=== PATIENT | female | born 1945 | race Caucasian/White ===

== ENCOUNTER 2021-12-16 15:51 | Outpatient (RCR) | payer SELFPAY ==
--- NOTE | 2022-03-04 13:14 | ONC.NURNOTE ---
Received an order from nephrology for blood transfusion. After discussion with nursing they note that clay caster wanted patient to have an order for blood if hemoglobin less than 8. They were told that this would be next checked on March 12 and her procrit injection. Further informed that if patient comes in symptomatic we will get an order from cotton converter for transfusion. She is comfortable with this plan, and asked that nursing disregard order sent.
== END 2022-12-07 23:00 | disposition home or self-care (01) ==
LOC: MOW 15:51
PROVIDERS: PCP Family Medicine; Visit Provider Family Medicine
DX: H65.90 Unspecified nonsuppurative otitis media, unspecified ear (principal)
CPT/HCPCS: S5170

== ENCOUNTER 2021-12-24 14:43 | Outpatient (CLI) | payer OTHER, SELFPAY | END 2021-12-24 14:44 | disposition home or self-care (01) | LOC: AMB 01-01 11:44 | PROVIDERS: PCP Family Medicine; Visit Provider Family Medicine | DX: S09.90XA Unspecified injury of head, initial encounter (principal); W01.0XXA Fall on same level from slipping, tripping and stumbling without subsequent striking against object, initial encounter; Y92.008 Other place in unspecified non-institutional (private) residence as the place of occurrence of the external cause | CPT/HCPCS: A0425; A0427 ==

== ENCOUNTER 2021-12-24 15:11 | Emergency (ER) | payer OTHER, SELFPAY ==
[2021-12-24] VITALS (9 sets, daily range): BP systolic 105–119; BP diastolic 48–61; PULSE 55–62; RESP 16–18; TEMP 35.8–36.8; O2SAT 98–99; BMI 25.1
--- NOTE | 2021-12-24 | CRLHL7_ITS ---
For Patients: As a result of the Century Cures Act, medical imaging exams and procedure reports are released immediately into your electronic medical record. You may view this report before your referring provider. If you have questions, please contact your health care provider. INDICATION: Fall. TECHNIQUE: Head CT without contrast. Coronal and sagittal reformats were generated. COMPARISON: None. FINDINGS: CSF spaces: Within normal limits for age. Brain parenchyma and extra-axial spaces: Mild generalized cerebral and cerebellar atrophy. Nonspecific low attenuation white matter changes consistent with chronic microvascular disease. No sign of mass, hemorrhage, or midline shift. Skull base and calvarium: Opacification of the left mastoid air cells. The other visualized paranasal sinuses and mastoid air cells demonstrate no acute or significant findings. The visualized orbits are grossly unremarkable. No skull fractures. Soft tissues: Right frontal soft tissue swelling and small subgaleal hematoma. No subcutaneous emphysema or radiopaque foreign body. IMPRESSION: No acute intracranial abnormality. Please note that all CT scans at this facility use dose modulation, iterative reconstruction, and/or weight-based dosing when appropriate to reduce radiation dose to as low as reasonably achievable. Dictated by Juan Hernandez MD @ 12/24/2021 3:51:31 PM (Electronically Signed)
--- NOTE | 2021-12-24 | CRLHL7_ITS ---
For Patients: As a result of the Century Cures Act, medical imaging exams and procedure reports are released immediately into your electronic medical record. You may view this report before your referring provider. If you have questions, please contact your health care provider. INDICATION: Fall. TECHNIQUE: CT cervical spine without contrast. Coronal and sagittal reformats were generated. COMPARISON: None. FINDINGS: Vertebrae: Alignment is normal. The C7 vertebral body is incompletely included in the field of view. No fractures or suspicious bony lesions. Discs and facet joints: Multilevel degenerative changes in the form of disc space narrowing, subchondral sclerosis, and marginal osteophyte formation. The changes are most prominent at C6-C7. Osteoarthritic changes involve the apophyseal joints of the cervical spine. Extraspinal findings: Prevertebral soft and visualized airway are unremarkable. Opacification of the left mastoid air cells. Opacification of the right lung apex could be pleural thickening or effusion. IMPRESSION: Multilevel degenerative changes. No acute abnormality in the included cervical spine. Please note that all CT scans at this facility use dose modulation, iterative reconstruction, and/or weight-based dosing when appropriate to reduce radiation dose to as low as reasonably achievable. Dictated by Juan Hernandez MD @ 12/24/2021 3:49:27 PM (Electronically Signed)
--- NOTE | 2021-12-24 15:18 | ED_ITS ---
HPI - General Adult General Time Seen by Provider: 15:18 Date Seen: 12/24/21 Chief complaint: Fall/Minor Trauma Stated complaint: Fall Time Seen by Provider: 12/24/21 15:22 Source: patient Mode of arrival: EMS Limitations: no limitations History of Present Illness HPI narrative: Patient is a 76 year white female who lives independently in [place] was brought in by EMS, after she fell against a door frame and then fell to the ground. She fell she lost her balance, denied chest pain denied loss of consciousness, she has got a history of being on blood thinner for atrial fibrillation and heart valve replacement. She is brought in with bruising on her right forehead and a small hematoma in 2 spots on her right forehead. She denies neck pain, denies back pain denies chest pain denies neurologic complaints. Presents to the ED via ambulance. No recent illness. Trauma team activation was called, the patient has a Chicken coma Scale of 15. Denies back pain. Related Data Home Medications Medication Instructions Recorded Confirmed apixaban 5 mg tablet 5 mg PO BID 11/18/21 12/24/21 ascorbic acid (vitamin C) 1,000 mg 1,000 mg PO DAILY 11/18/21 12/24/21 tablet bupropion HCl 150 mg 24 hr tablet, 150 mg PO DAILY 11/18/21 12/24/21 extended release citalopram 20 mg tablet 20 mg PO DAILY 11/18/21 12/24/21 diltiazem HCl 120 mg See Rx Instructions PO DAILY 11/18/21 12/24/21 capsule,extended release 24 hr ferrous sulfate 325 mg (65 mg 325 mg PO DAILY 11/18/21 12/24/21 iron) tablet hydroxychloroquine 200 mg tablet See Rx Instructions PO DAILY 11/18/21 12/24/21 leflunomide 10 mg tablet 10 mg PO .COMPLEX 11/18/21 12/24/21 levothyroxine 125 mcg tablet 125 mcg PO DAILY 11/18/21 12/24/21 loperamide 2 mg capsule 4 mg PO DAILY 11/18/21 12/24/21 omeprazole 20 mg capsule,delayed See Rx Instructions PO DAILY 11/18/21 12/24/21 release potassium chloride 20 mEq 20 meq PO BID 11/18/21 12/24/21 tablet,extended release(part/cryst) prednisone 5 mg tablet 5 mg PO DAILY 11/18/21 12/24/21 pregabalin 25 mg capsule 100 mg PO .Bedtime 11/18/21 12/24/21 oxybutynin chloride 5 mg mg PO 12/24/21 tablet,extended release 24 hr Previous Rx's Medication Instructions Recorded torsemide 20 mg tablet 60 mg PO DAILY #270 tabs 12/10/21 metoprolol succinate 50 mg 50 mg PO QDAY #90 tabs 12/24/21 tablet,extended release 24 hr Allergies Allergy/AdvReac Type Severity Reaction Status Date / Time gabapentin Allergy Mild possible Verified 12/23/21 15:50 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 levothyroxine Allergy Unknown boils, Verified 12/23/21 15:50 hives hydrocodone AdvReac Mild nausea per Verified 12/23/21 15:50 previous records received Review of Systems Status of ROS: Reports: 6 or more systems reviewed and unremarkable except as noted in History and below [facility] Medical History Collagenous colitis Dyspnea Sensation of plugged ear on both sides Tobacco dependence in remission Trochanteric bursitis Upper gastrointestinal hemorrhage Social History Narrative: Exercises regularly: Swimming, golf, gardening, yoga , 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 8 pack years, quit in 20's Social drinker. 1-2/day SOCIAL HISTORY: She is . [place] but in the last year she moved to a town home nearby that is wheelchair accessible for her . He has muscular dystrophy. [place] the country. She describes a very stressful spring where she had trouble with many aspects of the early in the COVID-19 pandemic when nobody wanted to come in contact with anybod y else. In a way that kept her busy. She has 3 adult children. One stepdaughter. She is retired. She is exercising by walking the dog every other day. She used to do circuit training and swimming. She is not sexually active. Smoking Status: Never smoker Do you use any of these nicotine containing products: None How often do you have a drink containing alcohol: never How often do you have six or more drinks on one occasion: Never AUDIT-C Alcohol total score: 0 Non-prescribed substance use: denies use service: No Exam Narrative: Exam Narrative: Primary survey: Airway breathing circulation disability all intact Secondary survey: Vital signs being obtained Alert orient x3 HEENT shows bruising and hematoma on the right side of the forehead in 2 spots, pupils react to light extraocular moves intact Neck is supple nontender, no midline tenderness Chest back abdomen unremarkable Pelvis stable Upper lower extremities move fully without difficulty or pain to palpation, neurologic nonfocal Skin warm and dry Const: Vital Signs, click to edit/add: Vital Signs - 24 hr 12/24/21 15:17 12/24/21 16:47 Temperature 96.4 F L 96.7 F L Pulse Rate [Pulse Oximeter] 59 L 58 L Respiratory Rate 18 18 Blood Pressure [Ri ght Upper Arm] 119/58 L 119/58 L Pulse Oximetry 99 99 Oxygen Delivery Me thod Nasal Cannula Nasal Cannula Oxygen Flow Rate 2 Course Vital Signs Vital signs: Initial Vital Signs Temperature 96.4 F L 12/24/21 15:17 Temperature Source Temporal Artery Scan 12/24/21 15:17 Pulse Rate 59 L 12/24/21 15:17 Pulse Rhythm 12/24/21 15:17 Respiratory Rate 18 12/24/21 15:17 Blood Pressure 119/58 L 12/24/21 15:17 Blood Pressure Mean 78 12/24/21 15:17 Pulse Oximetry 99 12/24/21 15:17 Oxygen Delivery Method 12/24/21 15:17 Vital Signs Temperature 96.4 F L 12/24/21 15:17 Pulse Rate 59 L 12/24/21 15:17 Respiratory Rate 18 12/24/21 15:17 Blood Pressure 119/58 L 12/24/21 15:17 Pulse Oximetry 99 12/24/21 15:17 Oxygen Delivery Method 12/24/21 15:17 Temperature 96.7 F L 12/24/21 16:47 Pulse Rate 58 L 12/24/21 16:47 Respiratory Rate 18 12/24/21 16:47 Blood Pressure 119/58 L 12/24/21 16:47 Pulse Oximetry 99 12/24/21 16:47 Oxygen Delivery Method 12/24/21 16:47 Oxygen Flow Rate 2 12/24/21 16:47 Medical Decision Making MDM Narrative Medical decision making narrative: Because of the patient's age in her blood thinner on board, she will get a head CT scan and neck CT because of her fall. She does not have any other signs of injury other than her head, and will check the above-mentioned studies will do an EKG as well as laboratory studies as well. Disposition pending findings and labs and clinical status Addendum: The patient's hemoglobin is 7.8, she chronically runs a low hemoglobin. But she has had symptoms of feeling weak lately, after mutual decision making and discussion we elected to give her a unit of blood for transfusion. Her CT of head neck are unremarkable. She is on anticoagulation but she has not had any symptoms of bleeding. Also her heart rate is in the 50s and I think she could hold on to her diltiazem for now as that could slow her heart rate. This needs to be recheck with clinic in the next few days. Lab Data Labs: Lab Results 12/24/21 12/24/21 12/24/21 Range/Units 15:25 15:25 15:25 WBC 8.72 (4.50-11.00) K/uL RBC 2.58 L (4.00-5.20) m/uL Hgb 7.8 L* (12.0-16.0) gm/dL Hct 24.4 L (33.0-51.0) % MCV 95 (80-100) fL MCH 30 (26-34) pg MCHC 32 (32-36) gm/dL RDW Coeff of Estrella 19.9 H (11.5-15.5) % Plt Count 219 (140-440) K/uL Neut % (Auto) 75.7 H (42.0-72.0) % Lymph % (Auto) 13.3 L (20-44) % [place] % (Auto) 7.6 (0.0-11.0) % Eos % (Auto) 2.6 (0.0-7.0) % Baso % (Auto) 0.6 (0.0-3.0) % Neut # (Auto) 6.60 (1.7-7.0) K/uL Lymph # (Auto) 1.20 (0.90-2.90) K/uL [place] # (Auto) 0.70 (0.00-0.90) K/UL Eos # (Auto) 0.23 (0.00-0.50) K/uL Baso # (Auto) 0.05 (0.00-0.30) K/uL Abs Immat Gran (auto) 0.02 (0.00-0.30) K/uL INR 1.52 H (0.91-1.10) APTT 33 (23-33) Seconds Sodium 137 (135-149) mmol/L Potassium 4.6 (3.6-5.1) mmol/L Chloride 95 L (96-114) mmol/L Carbon Dioxide 34 H (20-32) mmol/L BUN 44 H (7-30) mg/dL Creatinine 1.7 H (0.5-1.5) mg/dL Estimated Creat Clear 24.31 Estimated GFR 31 ml/min Glucose 111 (60-115) mg/dL Calcium 8.5 (8.4-10.6) mg/dL Total Bilirubin 0.9 (0.1-1.5) mg/dL Direct Bilirubin 0.2 (0.0-0.5) mg/dL AST 36 H (12-35) U/L ALT 20 (4-35) U/L Alkaline Phosphatase 174 H (40-150) U/L Total Protein 7.5 (6.0-8.3) g/dL Albumin 4.1 (3.3-5.0) g/dL Blood Type Antibody Screen Crossmatch ([facility]) 12/24/21 Range/Units 15:25 WBC (4.50-11.00) K/uL RBC (4.00-5.20) m/uL Hgb (12.0-16.0) gm/dL Hct (33.0-51.0) % MCV (80-100) fL MCH (26-34) pg MCHC (32-36) gm/dL RDW Coeff of Estrella (11.5-15.5) % Plt Count (140-440) K/uL Neut % (Auto) (42.0-72.0) % Lymph % (Auto) (20-44) % [place] % (Auto) (0.0-11.0) % Eos % (Auto) (0.0-7.0) % Baso % (Auto) (0.0-3.0) % Neut # (Auto) (1.7-7.0) K/uL Lymph # (Auto) (0.90-2.90) K/uL [place] # (Auto) (0.00-0.90) K/UL Eos # (Auto) (0.00-0.50) K/uL Baso # (Auto) (0.00-0.30) K/uL Abs Immat Gran (auto) (0.00-0.30) K/uL INR (0.91-1.10) APTT (23-33) Seconds Sodium (135-149) mmol/L Potassium (3.6-5.1) mmol/L Chloride (96-114) mmol/L Carbon Dioxide (20-32) mmol/L BUN (7-30) mg/dL Creatinine (0.5-1.5) mg/dL Estimated Creat Clear Estimated GFR ml/min Glucose (60-115) mg/dL Calcium (8.4-10.6) mg/dL Total Bilirubin (0.1-1.5) mg/dL Direct Bilirubin (0.0-0.5) mg/dL AST (12-35) U/L ALT (4-35) U/L Alkaline Phosphatase (40-150) U/L Total Protein (6.0-8.3) g/dL Albumin (3.3-5.0) g/dL Blood Type O Positive Antibody Screen NEGATIVE Crossmatch ([facility]) See Detail Discharge Plan Discharge Clinical Impression: CHI (closed head injury), Fall, Anemia Patient Disposition: Home w/ Parent or Adult Condition: Improved Additional Instructions: Rest, light activity, light diet, would have her stop diltiazem at this point given her relative bradycardia. Continue her other medications. Recheck with primary care in 48 hours certainly sooner change concerns worsening return to ED. Patient will get a unit of blood for transfusion as she is just at the low end of her baseline and has had energy issues. Watch for any bleeding or other concerns. Follow up with regular doctor within the next 2 days Activity Level: Light activity Activity Detail: stop diltiazem Discharge Diet: Regular Prescriptions: No Action apixaban 5 mg tablet 5 mg PO BID hydroxychloroquine 200 mg tablet See Rx Instructions PO DAILY Rx Instructions: orally daily; ferrous sulfate 325 mg (65 mg iron) tablet 325 mg PO DAILY leflunomide 10 mg tablet 10 mg PO .COMPLEX Rx Instructions: 10 mg orally; TAKES WEDNESDAY THROUGH WEDNESDAY prednisone 5 mg tablet 5 mg PO DAILY loperamide 2 mg capsule 4 mg PO DAILY ascorbic acid (vitamin C) 1,000 mg tablet 1,000 mg PO DAILY diltiazem HCl 120 mg capsule,extended release 24hr See Rx Instructions PO DAILY Rx Instructions: orally daily; potassium chloride 20 mEq tablet,ER particles/crystals 20 meq PO BID pregabalin 25 mg capsule 100 mg PO .Bedtime bupropion HCl 150 mg tablet extended release 24 hr 150 mg PO DAILY omeprazole 20 mg capsule,delayed release(DR/EC) See Rx Instructions PO DAILY Rx Instructions: orally daily; levothyroxine 125 mcg tablet 125 mcg PO DAILY citalopram 20 mg tablet 20 mg PO DAILY oxybutynin chloride 5 mg tablet extended release 24hr PO torsemide 20 mg tablet 60 mg PO DAILY Qty: 270 1RF metoprolol succinate 50 mg tablet extended release 24 hr 50 mg PO QDAY Qty: 90 0RF Follow Up/Referrals: Alcdies Gonzalez MD [Primary Care Provider] - Antonio Anthony MD [Emergency Provider] - Stand Alone Forms: [facility] Info Instructions
[2021-12-24 15:38] LABS: Basophils Absolute Auto 0.05 K/uL (0.00-0.30); Basophils Percent Auto 0.6 % (0.0-3.0); Eosinophils Absolute Auto 0.23 K/uL (0.00-0.50); Eosinophils Percent Auto 2.6 % (0.0-7.0); Hematocrit 24.4 % (33.0-51.0); Immature Granulocytes Abs Auto 0.02 K/uL (0.00-0.30); Lymphocytes Percent Auto 13.3 % (20-44); Mean Corpuscular HGB Conc 32 gm/dL (32-36); Mean Corpuscular Hemoglobin 30 pg (26-34); Mean Corpuscular Volume 95 fL (80-100); Monocytes Percent Auto 7.6 % (0.0-11.0); Neutrophils Percent Auto 75.7 % (42.0-72.0); Platelet Count* 219 K/uL (140-440); RDW Coefficient of Variation % 19.9 % (11.5-15.5); Red Blood Count 2.58 m/uL (4.00-5.20); White Blood Count* 8.72 K/uL (4.50-11.00)
[2021-12-24 15:46] LABS: Albumin* 4.1 g/dL (3.3-5.0); Chloride* 95 mmol/L (96-114); Sodium* 137 mmol/L (135-149)
[2021-12-24 15:47] LABS: Potassium* 4.6 mmol/L (3.6-5.1)
[2021-12-24 15:48] LABS: Creatinine* 1.7 mg/dL (0.5-1.5); Est. Creatinine Clearance* 24.31; Estimated Glomerular Filt Rate 31 ml/min
[2021-12-24 15:49] LABS: Alanine Aminotransferase* 20 U/L (4-35); Alkaline Phosphatase* 174 U/L (40-150); Aspartate Amino Transferase* 36 U/L (12-35); Bilirubin Direct* 0.2 mg/dL (0.0-0.5); Bilirubin Total* 0.9 mg/dL (0.1-1.5); Blood Urea Nitrogen* 44 mg/dL (7-30); Carbon Dioxide* 34 mmol/L (20-32); Glucose* 111 mg/dL (60-115); Total Protein* 7.5 g/dL (6.0-8.3)
[2021-12-24 15:50] LABS: Calcium* 8.5 mg/dL (8.4-10.6)
[2021-12-24 15:56] LABS: Hemoglobin* 7.8 gm/dL (12.0-16.0); Slide Review Reflex No
--- NOTE | 2021-12-24 15:59 | ED.NURSE ---
Dr Anthony updated on critical hgb level.
[2021-12-24 16:01] LABS: INR 1.52 (0.91-1.10); Partial Thromboplastin Time* 33 Seconds (23-33); Prothrombin Time 18.8 Seconds
--- NOTE | 2021-12-24 19:06 | ED.NURSE ---
pt u to br with steady gait. Returned to bed and all monitors resumed. Has pacer pads on. belongings check done which include keys to truck that family will garbage pick up man shortly.
== END 2021-12-24 21:26 | disposition home or self-care (01) ==
PROVIDERS: Emergency Provider Family Medicine; PCP Family Medicine
DX: S00.83XA Contusion of other part of head, initial encounter (principal); D64.9 Anemia, unspecified
CPT/HCPCS: 36415; 36430; 70450; 72125; 80048; 80076; 85025; 85610; 85730; 86850; 86900; 86901; 86922; 93005; 99284; 99285; 99291; G0390; P9016

== ENCOUNTER 2021-12-31 08:32 | Outpatient (CLI) | payer OTHER, SELFPAY ==
[2021-12-31 11:40] LABS: Albumin* 4.3 g/dL (3.3-5.0); Chloride* 92 mmol/L (96-114)
[2021-12-31 11:41] LABS: Potassium* 4.1 mmol/L (3.6-5.1); Sodium* 136 mmol/L (135-149)
[2021-12-31 11:43] LABS: Carbon Dioxide* 33 mmol/L (20-32); Creatinine* 1.9 mg/dL (0.5-1.5); Estimated Glomerular Filt Rate 27 ml/min; Iron* 59 ug/dL (37-170)
[2021-12-31 11:44] LABS: Blood Urea Nitrogen* 29 mg/dL (7-30); Calcium* 9.2 mg/dL (8.4-10.6); Glucose* 107 mg/dL (60-115); Phosphorus* 3.9 mg/dL (2.5-4.5)
[2021-12-31 11:52] LABS: Percent Iron Saturation 24 % (20-50); Total Iron Binding Capacity 248 ug/dL (265-497)
[2021-12-31 11:52] LABS: Creatinine Urine 31.9 mg/dL
[2021-12-31 11:56] LABS: Microalbumin Creatinine Ratio 120 mg/g (0-30); Microalbumin Urine 4 mg/dL
== END 2021-12-31 08:33 | disposition home or self-care (01) ==
PROVIDERS: PCP Family Medicine; Visit Provider Internal Medicine Nephrology
DX: N18.30 Chronic kidney disease, stage 3 unspecified (principal); D64.9 Anemia, unspecified
CPT/HCPCS: 80069; 82043; 82570; 82728; 83540; 83550; 87086; 87186

== ENCOUNTER 2022-02-27 15:21 | Emergency (ER) | payer OTHER, SELFPAY ==
[2022-02-27] VITALS (11 sets, daily range): BP systolic 109–149; BP diastolic 45–86; PULSE 57–66; RESP 12–16; TEMP 36.2–36.8; O2SAT 97–100; BMI 26.6
[2022-02-27 16:06] LABS: Basophils Absolute Auto 0.04 K/uL (0.00-0.30); Basophils Percent Auto 0.5 % (0.0-3.0); Eosinophils Percent Auto 3.7 % (0.0-7.0); Hemoglobin* 8.1 gm/dL (12.0-16.0); Immature Granulocytes Abs Auto 0.01 K/uL (0.00-0.30); Lymphocytes Percent Auto 7.7 % (20-44); Mean Corpuscular HGB Conc 32 gm/dL (32-36); Mean Corpuscular Hemoglobin 31 pg (26-34); Mean Corpuscular Volume 97 fL (80-100); Monocytes Percent Auto 7.2 % (0.0-11.0); Neutrophils Percent Auto 80.8 % (42.0-72.0); Platelet Count* 209 K/uL (140-440); RDW Coefficient of Variation % 19.6 % (11.5-15.5); Red Blood Count 2.59 m/uL (4.00-5.20); White Blood Count* 8.07 K/uL (4.50-11.00)
[2022-02-27 16:12] LABS: Slide Review Reflex No
--- NOTE | 2022-02-27 17:02 | ED_ITS ---
HPI - Weakness General Date Seen: 02/27/22 Chief complaint: Weakness Stated complaint: Requesting a blood transfusion Time Seen by Provider: 02/27/22 15:25 Source: patient Mode of arrival: ambulatory Limitations: no limitations History of Present Illness HPI Narrative: Bess is a 76-year-old female who suffers from anemia. She was at [facility] today, but they were unable to get her a transfusion. She has had previous transfusions with the most recent 1 being here in the early part of February. She has followed up with our oncologist/cuprous chloride operator here. She has a combination of chronic renal failure causing this along with the fact that she is anticoagulated and has a small blood loss from this. She has recently started on EPO but that is not yet had a affect, she was seen today at the [facility] and they are her hemoglobin was 7.9. She was transfused here before when it was 7.7, She is on chronic oxygen, notice that she has a lot weaker than normal, tough to get around, and feels that unit of blood would really help her. Denies any chest pain, she is ?chronically short of breath, Complaint: generalized weakness Relieving factors: rest Exacerbating factors: movement Associated symptoms: denies other symptoms Related Data Home Medications Medication Instructions Recorded Confirmed apixaban 5 mg tablet 5 mg PO BID 11/18/21 01/29/22 ascorbic acid (vitamin C) 1,000 mg 1,000 mg PO DAILY 11/18/21 01/29/22 tablet bupropion HCl 150 mg 24 hr tablet, 150 mg PO DAILY 11/18/21 01/29/22 extended release citalopram 20 mg tablet 20 mg PO DAILY 11/18/21 01/29/22 ferrous sulfate 325 mg (65 mg 325 mg PO DAILY 11/18/21 01/29/22 iron) tablet hydroxychloroquine 200 mg tablet See Rx Instructions PO DAILY 11/18/21 01/29/22 leflunomide 10 mg tablet 10 mg PO .COMPLEX 11/18/21 01/29/22 levothyroxine 125 mcg tablet 125 mcg PO DAILY 11/18/21 01/29/22 loperamide 2 mg capsule 4 mg PO DAILY 11/18/21 01/29/22 omeprazole 20 mg capsule,delayed See Rx Instructions PO DAILY 11/18/21 01/29/22 release prednisone 5 mg tablet 5 mg PO DAILY 11/18/21 01/29/22 aspirin 81 mg tablet,delayed 81 mg PO QDAY 01/06/22 01/29/22 release (Adult Low Dose Aspirin) metoprolol succinate 50 mg 25 mg PO BID 01/06/22 01/29/22 tablet,extended release 24 hr potassium chloride 20 mEq 20 meq PO QDAY 01/06/22 01/29/22 tablet,extended release(part/cryst) Previous Rx's Medication Instructions Recorded torsemide 20 mg tablet 60 mg PO DAILY #270 tabs 12/10/21 Allergies Allergy/AdvReac Type Severity Reaction Status Date / Time gabapentin Allergy Mild possible Verified 02/25/22 13:11 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 levothyroxine Allergy Unknown boils, Verified 02/25/22 13:11 hives hydrocodone AdvReac Mild nausea per Verified 02/25/22 13:11 previous records received Review of Systems Status of ROS: Reports: 10 or more systems reviewed and unremarkable except as noted in History and below [facility] Medical History Collagenous colitis Dyspnea Sensation of plugged ear on both sides Tobacco dependence in remission Trochanteric bursitis Upper gastrointestinal hemorrhage Social History Narrative: Exercises regularly: Swimming, golf, gardening, yoga , 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 8 pack years, quit in 20's Social drinker. 1-2/day SOCIAL HISTORY: She is . [place] but in the last year she moved to a town home nearby that is wheelchair accessible for her . He has muscular dystrophy. She [place] the country. She describes a very stressful spring where she had trouble with many aspects of the early in the COVID-19 pandemic when nobody wanted to come in contact with anybody else. In a way that kept her busy. She has 3 adult children. One stepdaughter. She is retired. She is exercising by walking the dog every other day. She used to do circuit training and swimming. She is not sexually active. Smoking Status: Never smoker Do you use any of these nicotine containing products: None How often do you have a drink containing alcohol: never How often do you have six or more drinks on one occasion: Never AUDIT-C Alcohol total score: 0 Non-prescribed substance use: denies use service: No Exam Narrative: Exam Narrative: Very nice lady is seen in room 3 she is in no apparent distress, her vital signs are appreciated, her pupils are equal round reactive to light there is no scleral icterus redness TMs are normal oropharynx normal JVP is flat, she does have some crackles in her lungs bilaterally in the bases but no signs of respiratory distress or wheezing. Heart sounds no clicks murmurs or gallops, S1-S2 were normal I do not hear an S3. Even though I do happen to know that she has a history of tricuspid and mitral valve replacement. Her abdomen is soft there is no guarding no organomegaly, and no tenderness. She has 1+ pitting edema of her lower extremities but moves all extremities independently well, her skin is very pale Const: Vital Signs, click to edit/add: Vital Signs - 24 hr 02/27/22 15:40 02/27/22 16:00 02/27/22 17:00 Temperature 97.1 F L Pulse Rate Pulse Rate [Pulse Oximeter] 66 65 64 Respiratory Rate 16 16 Blood Pressure Blood Pressure [Ri ght Upper Arm] 117/66 110/45 L 109/67 Pulse Oximetry 99 100 97 Oxygen Delivery Me thod Nasal Cannula Room Air Room Air 02/27/22 17:30 02/27/22 18:00 02/27/22 18:00 Temperature 97.9 F Pulse Rate 66 Pulse Rate [Pulse Oximeter] 58 L 66 Respiratory Rate 16 16 16 Blood Pressure 114/49 L Blood Pressure [Ri ght Upper Arm] 118/72 137/74 Pulse Oximetry 100 100 100 Oxygen Delivery Me thod Room Air Room Air 02/27/22 18:45 02/27/22 18:56 02/27/22 19:00 Temperature 97.9 F 98.3 F 98.3 F Pulse Rate 66 57 L 57 L Pulse Rate [Pulse Oximeter] Respiratory Rate 16 12 12 Blood Pressure 114/49 L 133/77 133/77 Blood Pressure [Ri ght Upper Arm] Pulse Oximetry 100 100 100 Oxygen Delivery Me thod 02/27/22 20:00 02/27/22 20:52 Temperature 97.8 F 98.3 F Pulse Rate 59 L 59 L Pulse Rate [Pulse Oximeter] Respiratory Rate 14 14 Blood Pressure 149/86 H 137/71 Blood Pressure [Ri ght Upper Arm] Pulse Oximetry 99 98 Oxygen Delivery Me thod Documenting provider has reviewed patient's vital signs: yes Course Course Hospital Course: She received her blood, and Lasix post transfusion without incident, she feels much better now is requesting to go home which I think is reasonable. Follow-up with her primary care provider, and her cuprous chloride operator as needed, return if any further problems. Vital Signs Vital signs: Initial Vital Signs Temperature 97.1 F L 02/27/22 15:40 Temperature Source Temporal Artery Scan 02/27/22 15:40 Pulse Rate 66 02/27/22 15:40 Blood Pressure 117/66 02/27/22 15:40 Blood Pressure Mean 83 02/27/22 15:40 Blood Pressure Position Supine 02/27/22 15:40 Pulse Oximetry 99 02/27/22 15:40 Oxygen Delivery Method 02/27/22 15:40 Vital Signs Temperature 97.1 F L 02/27/22 15:40 Pulse Rate 66 02/27/22 15:40 Blood Pressure 117/66 02/27/22 15:40 Pulse Oximetry 99 02/27/22 15:40 Oxygen Delivery Method 02/27/22 15:40 Temperature 98.3 F 02/27/22 20:52 Pulse Rate 59 L 02/27/22 20:52 Respiratory Rate 14 02/27/22 20:52 Blood Pressure 137/71 02/27/22 20:52 Pulse Oximetry 98 02/27/22 20:52 Oxygen Delivery Method 02/27/22 18:00 MDM - Weakness MDM Narrative Medical decision making narrative: I discussed with her I am not against giving her a unit of blood here, it will have to be given over 4 hours I would like to give her Lasix post this. Even though she did take an extra dose of her Lasix before she came here today. She was comfortable with the risks benefits and side effects of getting blood today after our discussion. Medical Records Attestation: I reviewed the patient's medical records. Lab Data Attestation: I reviewed the patient's lab results. Labs: Lab Results 02/27/22 02/27/22 Range/Units 16:00 16:00 WBC 8.07 (4.50-11.00) K/uL RBC 2.59 L (4.00-5.20) m/uL Hgb 8.1 L (12.0-16.0) gm/dL Hct 25.0 L (33.0-51.0) % MCV 97 (80-100) fL MCH 31 (26-34) pg MCHC 32 (32-36) gm/dL RDW Coeff of Estrella 19.6 H (11.5-15.5) % Plt Count 209 (140-440) K/uL Neut % (Auto) 80.8 H (42.0-72.0) % Lymph % (Auto) 7.7 L (20-44) % [place] % (Auto) 7.2 (0.0-11.0) % Eos % (Auto) 3.7 (0.0-7.0) % Baso % (Auto) 0.5 (0.0-3.0) % Neut # (Auto) 6.50 (1.7-7.0) K/uL Lymph # (Auto) 0.60 L (0.90-2.90) K/uL [place] # (Auto) 0.60 (0.00-0.90) K/UL Eos # (Auto) 0.30 (0.00-0.50) K/uL Baso # (Auto) 0.04 (0.00-0.30) K/uL Abs Immat Gran (auto) 0.01 (0.00-0.30) K/uL Blood Type O Positive Antibody Screen NEGATIVE Crossmatch (AHG) See Detail Discharge Plan Discharge Clinical Impression: Anemia, Weakness Patient Disposition: Home w/ Parent or Adult Condition: Improved Additional Instructions: Continue medications as directed, follow-up as needed Prescriptions: No Action apixaban 5 mg tablet 5 mg PO BID hydroxychloroquine 200 mg tablet See Rx Instructions PO DAILY Rx Instructions: orally daily; ferrous sulfate 325 mg (65 mg iron) tablet 325 mg PO DAILY leflunomide 10 mg tablet 10 mg PO .COMPLEX Rx Instructions: 10 mg orally; TAKES WEDNESDAY THROUGH WEDNESDAY prednisone 5 mg tablet 5 mg PO DAILY loperamide 2 mg capsule 4 mg PO DAILY ascorbic acid (vitamin C) 1,000 mg tablet 1,000 mg PO DAILY bupropion HCl 150 mg tablet extended release 24 hr 150 mg PO DAILY omeprazole 20 mg capsule,delayed release(DR/EC) See Rx Instructions PO DAILY Rx Instructions: orally daily; levothyroxine 125 mcg tablet 125 mcg PO DAILY Label Comments: takes Synthroid. Levothyroxine causes significant rash citalopram 20 mg tablet 20 mg PO DAILY potassium chloride 20 mEq tablet,ER particles/crystals 20 meq PO QDAY metoprolol succinate 50 mg tablet extended release 24 hr 25 mg PO BID aspirin [Adult Low Dose Aspirin] 81 mg tablet,delayed release (DR/EC) 81 mg PO QDAY torsemide 20 mg tablet 60 mg PO DAILY Qty: 270 1RF Follow Up/Referrals: Alcides Gonzalez MD [Primary Care Provider] - Stand Alone Forms: [employer] Info Instructions
[2022-02-27] MEDS: FUROSEMIDE 10 MG/ML inj 40 MG IVP (20:55)
--- NOTE | 2022-02-27 21:12 | ED.NURSE ---
Transfusion of 1 unit PRBCs complete without incidence, Pt tolerated well. Post-transfusion Lasix given IVP, as ordered. aware. Call light within reach of Pt, denies further needs at this time.
== END 2022-02-27 21:43 | disposition home or self-care (01) ==
PROVIDERS: Emergency Provider Family Medicine; PCP Family Medicine
DX: N19 Unspecified kidney failure (principal); D63.8 Anemia in other chronic diseases classified elsewhere; R53.1 Weakness
CPT/HCPCS: 36415; 36430; 85025; 85027; 86850; 86900; 86901; 86922; 99284; 99285; J1940; P9016

== ENCOUNTER 2022-03-04 11:26 | Outpatient (CLI) | payer OTHER, SELFPAY ==
[2022-03-04 13:15] LABS: Creatinine Urine 17.1 mg/dL
[2022-03-04 13:21] LABS: Microalbumin Creatinine Ratio 50 mg/g (0-30); Microalbumin Urine 1 mg/dL
== END 2022-03-04 11:27 | disposition home or self-care (01) ==
LOC: NFLDREF 11:27
PROVIDERS: PCP Family Medicine; Visit Provider Internal Medicine Nephrology
DX: D63.1 Anemia in chronic kidney disease (principal); N18.9 Chronic kidney disease, unspecified
CPT/HCPCS: 82043; 82570; 87086; 87186

== ENCOUNTER 2022-03-29 13:00 | Outpatient (CLI) | payer OTHER, SELFPAY | END 2022-03-29 13:01 | disposition home or self-care (01) | LOC: NFLDUCREF 04-06 13:26 | PROVIDERS: PCP Family Medicine; Visit Provider Nurse Practitioner Family | DX: R35.0 Frequency of micturition (principal); N39.0 Urinary tract infection, site not specified; M54.50 Low back pain, unspecified | CPT/HCPCS: 87086; 87186 ==

== ENCOUNTER 2022-03-31 13:27 | Inpatient (IN) | payer OTHER, SELFPAY ==
[2022-03-31] VITALS (19 sets, daily range): BP systolic 101–144; BP diastolic 64–89; PULSE 69–81; RESP 20–24; TEMP 36.4–36.8; O2SAT 95–99; BMI 26.1; BMI 26.0
--- NOTE | 2022-03-31 14:15 | CRLHL7_ITS ---
For Patients: As a result of the Cures Act, medical imaging exams and procedure reports are released immediately into your electronic medical record. You may view this report before your referring provider. If you have questions, please contact your health care provider. INDICATION: Shortness of breath. COMPARISON: 09/16/2021 portable chest radiograph. FINDINGS/IMPRESSION: Portable AP chest radiograph. New small to moderate-sized right pleural effusion. New moderate pulmonary vascular congestion. Unchanged prominence of the cardiac silhouette likely reflecting mild cardiomegaly. Findings may reflect congestive heart failure. No focal lung consolidation identified. Interval median sternotomy and cardiac valve replacement. No acute osseous findings. Dictated by Trip Godoy MD @ 03/31/2022 3:31:18 PM Dictated by: Trip Godoy MD @ 03/31/2022 15:31:39 (Electronically Signed)
--- NOTE | 2022-03-31 14:40 | ED.SOB ---
HPI - SOB/Dyspnea General Date Seen: 03/31/22 Chief Complaint: Shortness of Breath/Dyspnea Stated Complaint: Difficulty breathing Time Seen by Provider: 03/31/22 13:32 Source: patient and family Mode of arrival: ambulatory Limitations: no limitations History of Present Illness HPI Narrative: Patient is a 77-year-old female who presents ambulatory for evaluation of shortness of breath, this is been since yesterday, she describes a tightness along her upper abdomen lower chest wall. Whenever she takes a deep breath in, she has not noted a fever, she feels laying flat especially problematic, has noted no increase in her leg swelling, has had a little bit increase in cough, denies hemoptysis feeling like she is going to pass out. She is on chronic oxygen of 1-2 L by her concentrator, has been using her nebulizer and MDI is a little bit more. MD elicited complaint: shortness of breath, cough and pain with inspiration Onset (ago): day(s) Severity: moderate Exacerbating factors: lying flat Known history of: COPD, asthma and congestive heart failure Related Data Home oxygen amount: 2 liters Home Medications Medication Instructions Recorded Confirmed apixaban 5 mg tablet 5 mg PO BID 11/18/21 03/29/22 ascorbic acid (vitamin C) 1,000 mg 1,000 mg PO DAILY 11/18/21 03/29/22 tablet bupropion HCl 150 mg 24 hr tablet, 150 mg PO DAILY 11/18/21 03/29/22 extended release citalopram 20 mg tablet 20 mg PO DAILY 11/18/21 03/29/22 ferrous sulfate 325 mg (65 mg 325 mg PO DAILY 11/18/21 03/29/22 iron) tablet hydroxychloroquine 200 mg tablet See Rx Instructions PO DAILY 11/18/21 03/29/22 levothyroxine 125 mcg tablet 125 mcg PO DAILY 11/18/21 03/29/22 loperamide 2 mg capsule 4 mg PO DAILY 11/18/21 03/29/22 omeprazole 20 mg capsule,delayed See Rx Instructions PO DAILY 11/18/21 03/29/22 release prednisone 5 mg tablet 5 mg PO DAILY 11/18/21 03/29/22 aspirin 81 mg tablet,delayed 81 mg PO QDAY 01/06/22 03/29/22 release (Adult Low Dose Aspirin) metoprolol succinate 50 mg 25 mg PO BID 01/06/22 03/29/22 tablet,extended release 24 hr potassium chloride 20 mEq 20 meq PO QDAY 01/06/22 03/29/22 tablet,extended release(part/cryst) Previous Rx's Medication Instructions Recorded torsemide 20 mg tablet 60 mg PO DAILY #270 tabs 12/10/21 sulfamethoxazole 800 1 tab PO BID #10 tabs 03/29/22 mg-trimethoprim 160 mg tablet (Bactrim DS) Allergies Allergy/AdvReac Type Severity Reaction Status Date / Time gabapentin Allergy Mild possible Verified 03/29/22 12:59 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 levothyroxine Allergy Unknown boils, Verified 03/29/22 12:59 hives hydrocodone AdvReac Mild nausea per Verified 03/29/22 12:59 previous records received Review of Systems Status of ROS: Reports: 10 or more systems reviewed and unremarkable except as noted in History and below [facility] Medical History Collagenous colitis Dyspnea Sensation of plugged ear on both sides Tobacco dependence in remission Trochanteric bursitis Upper gastrointestinal hemorrhage Social History Narrative: Exercises regularly: Swimming, golf, gardening, yoga , 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 8 pack years, quit in 20's Social drinker. 1-2/day SOCIAL HISTORY: She is . [place] but in the last year she moved to a town home nearby that is wheelchair accessible for her . He has muscular dystrophy. She [place] the country. She describes a very stressful spring where she had trouble with many aspects of the early in the COVID-19 pandemic when nobody wanted to come in contact with anybody else. In a way that kept her busy. She has 3 adult children. One stepdaughter. She is retired. She is exercising by walking the dog every other day. She used to do circuit training and swimming. She is not sexually active. Smoking Status: Former smoker What tobacco products do you use: cigarettes Smoking quit date/years: >15 years ago Do you use any of these nicotine containing products: None How often do you have a drink containing alcohol: never How often do you have six or more drinks on one occasion: Never AUDIT-C Alcohol total score: 0 Non-prescribed substance use: denies use service: No Exam Narrative: Exam Narrative: Patient is seen in room 6 she is in no apparent distress, she is at 45?. She is speaking to me normally does not appear to be toxic, a slightly elevated respiratory rate is noted. Pupils are equal round reactive to light there is no scleral icterus redness, TMs are normal oropharynx is normal, JVP is elevated to 6 cm on the right side of her neck, and her HJR is elevated and positive. Chest shows some crackles right greater than left in her lower lung anderson, no signs of respiratory distress, do not hear any wheezing when I listen to her chest, but there is some audible. S1-S2 her normal there is no S3-S4 clicks murmurs or gallops, her abdomen is protuberant, but not tender. Her bowel sounds are normal, there is no organomegaly, she moves all extremities independently well with normal neurologic function in upper lower extremities, pitting edema is 2+ pretibial, skin reveals no rashes Const: Vital Signs, click to edit/add: Vital Signs - 24 hr 03/31/22 13:48 03/31/22 14:50 03/31/22 15:00 Temperature 97.5 F L Pulse Rate 71 81 Pulse Rate [Right Pulse Oximeter] 79 Respiratory Rate 20 Blood Pressure Blood Pressure [Ri ght Upper Arm] 144/83 H Pulse Oximetry 99 96 98 Oxygen Delivery Me thod Room Air Nasal Cannula Nasal Cannula Oxygen Flow Rate 1 1 03/31/22 15:01 03/31/22 15:15 03/31/22 15:30 Temperature Pulse Rate 73 77 Pulse Rate [Right Pulse Oximeter] Respiratory Rate Blood Pressure 133/89 Blood Pressure [Ri ght Upper Arm] Pulse Oximetry 98 98 Oxygen Delivery Me thod Nasal Cannula Nasal Cannula Nasal Cannula Oxygen Flow Rate 1 1 1 03/31/22 15:31 Temperature Pulse Rate 72 Pulse Rate [Right Pulse Oximeter] Respiratory Rate Blood Pressure 134/77 Blood Pressure [Ri ght Upper Arm] Pulse Oximetry 98 Oxygen Delivery Me thod Nasal Cannula Oxygen Flow Rate 1 Documenting provider has reviewed patient's vital signs: yes Course Reevaluation(s) Reevaluation #1: I spoke to the patient, I believe this is congestive heart failure, I am not exactly sure why this occurred, but she does have a bad heart, and she did clearly has some fluid overload. I would recommend that she come in and get some IV diuresis, and she does have the new pleural effusions. Her troponin was elevated at 0.16 I do not have any old ones to compare to, but given her creatinine is 2.0 I suspect that this is more of a non clearing issue. I will repeat the troponin to see if there is arise but the reassuring part of the normal EKG. But no acute changes D-dimer was elevated, but in the setting as she is on chronic Eliquis. She is comfortable this plan and I did speak to the hospitalist about this. Time: 16:28 Vital Signs Vital signs: Initial Vital Signs Temperature 97.5 F L 03/31/22 13:48 Temperature Source Temporal Artery Scan 03/31/22 13:48 Pulse Rate 79 03/31/22 13:48 Respiratory Rate 20 03/31/22 13:48 Blood Pressure 144/83 H 03/31/22 13:48 Blood Pressure Mean 103 03/31/22 13:48 Blood Pressure Position Sitting 03/31/22 13:48 Pulse Oximetry 99 03/31/22 13:48 Oxygen Delivery Method 03/31/22 13:48 Vital Signs Temperature 97.5 F L 03/31/22 13:48 Pulse Rate 79 03/31/22 13:48 Respiratory Rate 20 03/31/22 13:48 Blood Pressure 144/83 H 03/31/22 13:48 Pulse Oximetry 99 03/31/22 13:48 Oxygen Delivery Method 03/31/22 13:48 Temperature 97.5 F L 03/31/22 13:48 Pulse Rate 72 03/31/22 15:31 Respiratory Rate 20 03/31/22 13:48 Blood Pressure 134/77 03/31/22 15:31 Pulse Oximetry 98 03/31/22 15:31 Oxygen Delivery Method 03/31/22 15:31 Oxygen Flow Rate 1 03/31/22 15:31 MDM - SOB/Dyspnea MDM Narrative Medical decision making narrative: Life-threatening differential diagnosis includes occluded COPD exacerbation, pulmonary edema, acute coronary syndromes, pulmonary embolism, pneumonia, and pneumothorax. Other differential diagnosis considerations include asthma, bronchitis as well as other etiologies Medical Records Attestation: I reviewed the patient's medical records. Lab Data Attestation: I reviewed the patient's lab results. Labs: Lab Results 03/31/22 03/31/22 03/31/22 Range/Units 06:39 14:35 14:35 WBC 11.27 H (4.50-11.00) K/uL RBC 3.06 L (4.00-5.20) m/uL Hgb 9.3 L (12.0-16.0) gm/dL Hct 29.1 L (33.0-51.0) % MCV 95 (80-100) fL MCH 30 (26-34) pg MCHC 32 (32-36) gm/dL RDW Coeff of Estrella 18.7 H (11.5-15.5) % Plt Count 216 (140-440) K/uL Neut % (Auto) 74.4 H (42.0-72.0) % Lymph % (Auto) 9.1 L (20-44) % [place] % (Auto) 9.0 (0.0-11.0) % Eos % (Auto) 6.8 (0.0-7.0) % Baso % (Auto) 0.4 (0.0-3.0) % Neut # (Auto) 8.40 H (1.7-7.0) K/uL Lymph # (Auto) 1.00 (0.90-2.90) K/uL [place] # (Auto) 1.00 H (0.00-0.90) K/UL Eos # (Auto) 0.80 H (0.00-0.50) K/uL Baso # (Auto) 0.00 (0.00-0.30) K/uL Abs Immat Gran (auto) 0.00 (0.00-0.30) K/uL Imm/Tot Granulo (auto) 0.3 % INR 1.61 H (0.91-1.10) APTT 38 H (23-33) Seconds D-Dimer Quant (PE/DVT) 1.32 H (0.00-0.50) ug/ml Sodium (135-149) mmol/L Potassium (3.6-5.1) mmol/L Chloride (96-114) mmol/L Carbon Dioxide (20-32) mmol/L BUN (7-30) mg/dL Creatinine (0.5-1.5) mg/dL Estimated Creat Clear Estimated GFR ml/min Glucose (60-115) mg/dL Lactate 1.3 (0.5-1.9) mmol/L Calcium (8.4-10.6) mg/dL Total Bilirubin (0.1-1.5) mg/dL Direct Bilirubin (0.0-0.5) mg/dL AST (12-35) U/L ALT (4-35) U/L Alkaline Phosphatase (40-150) U/L NT-Pro-B Natriuret Pep (0-450) PG/mL Total Protein (6.0-8.3) g/dL Albumin (3.3-5.0) g/dL Lipase (23-300) U/L SARS-CoV-2 (PCR) (Negative) Influenza Type A (PCR) (Negative) Influenza Type B (PCR) (Negative) RSV (PCR) (Negative) POC Troponin I (0.01-0.04) ng/ml 03/31/22 03/31/22 03/31/22 Range/Units 14:35 14:35 14:35 WBC (4.50-11.00) K/uL RBC (4.00-5.20) m/uL Hgb (12.0-16.0) gm/dL Hct (33.0-51.0) % MCV (80-100) fL MCH (26-34) pg MCHC (32-36) gm/dL RDW Coeff of Estrella (11.5-15.5) % Plt Count (140-440) K/uL Neut % (Auto) (42.0-72.0) % Lymph % (Auto) (20-44) % [place] % (Auto) (0.0-11.0) % Eos % (Auto) (0.0-7.0) % Baso % (Auto) (0.0-3.0) % Neut # (Auto) (1.7-7.0) K/uL Lymph # (Auto) (0.90-2.90) K/uL [place] # (Auto) (0.00-0.90) K/UL Eos # (Auto) (0.00-0.50) K/uL Baso # (Auto) (0.00-0.30) K/uL Abs Immat Gran (auto) (0.00-0.30) K/uL Imm/Tot Granulo (auto) % INR (0.91-1.10) APTT (23-33) Seconds D-Dimer Quant (PE/DVT) (0.00-0.50) ug/ml Sodium 137 (135-149) mmol/L Potassium 4.3 (3.6-5.1) mmol/L Chloride 95 L (96-114) mmol/L Carbon Dioxide 30 (20-32) mmol/L BUN 51 H (7-30) mg/dL Creatinine 2.0 H (0.5-1.5) mg/dL Estimated Creat Clear 21.20 Estimated GFR 25 ml/min Glucose 77 (60-115) mg/dL Lactate (0.5-1.9) mmol/L Calcium 9.1 (8.4-10.6) mg/dL Total Bilirubin 1.0 (0.1-1.5) mg/dL Direct Bilirubin 0.2 (0.0-0.5) mg/dL AST 37 H (12-35) U/L ALT 29 (4-35) U/L Alkaline Phosphatase 262 H (40-150) U/L NT-Pro-B Natriuret Pep 16559 H (0-450) PG/mL Total Protein 8.3 (6.0-8.3) g/dL Albumin 4.8 (3.3-5.0) g/dL Lipase 285 (23-300) U/L SARS-CoV-2 (PCR) Negative SARS-CoV-2 (Negative) Influenza Type A (PCR) Negative PCR FLU A (Negative) Influenza Type B (PCR) Negative PCR FLU B (Negative) RSV (PCR) Negative PCR RSV (Negative) POC Troponin I 0.16 H (0.01-0.04) ng/ml 03/31/22 03/31/22 Range/Units 14:49 14:49 WBC (4.50-11.00) K/uL RBC (4.00-5.20) m/uL Hgb (12.0-16.0) gm/dL Hct (33.0-51.0) % MCV (80-100) fL MCH (26-34) pg MCHC (32-36) gm/dL RDW Coeff of Estrella (11.5-15.5) % Plt Count (140-440) K/uL Neut % (Auto) (42.0-72.0) % Lymph % (Auto) (20-44) % [place] % (Auto) (0.0-11.0) % Eos % (Auto) (0.0-7.0) % Baso % (Auto) (0.0-3.0) % Neut # (Auto) (1.7-7.0) K/uL Lymph # (Auto) (0.90-2.90) K/uL [place] # (Auto) (0.00-0.90) K/UL Eos # (Auto) (0.00-0.50) K/uL Baso # (Auto) (0.00-0.30) K/uL Abs Immat Gran (auto) (0.00-0.30) K/uL Imm/Tot Granulo (auto) % INR (0.91-1.10) APTT (23-33) Seconds D-Dimer Quant (PE/DVT) (0.00-0.50) ug/ml Sodium (135-149) mmol/L Potassium (3.6-5.1) mmol/L Chloride (96-114) mmol/L Carbon Dioxide (20-32) mmol/L BUN (7-30) mg/dL Creatinine (0.5-1.5) mg/dL Estimated Creat Clear Estimated GFR ml/min Glucose (60-115) mg/dL Lactate (0.5-1.9) mmol/L Calcium (8.4-10.6) mg/dL Total Bilirubin Cancelled (0.1-1.5) mg/dL Direct Bilirubin Cancelled (0.0-0.5) mg/dL AST Cancelled (12-35) U/L ALT Cancelled (4-35) U/L Alkaline Phosphatase Cancelled (40-150) U/L NT-Pro-B Natriuret Pep (0-450) PG/mL Total Protein Cancelled (6.0-8.3) g/dL Albumin Cancelled (3.3-5.0) g/dL Lipase Cancelled (23-300) U/L SARS-CoV-2 (PCR) (Negative) Influenza Type A (PCR) (Negative) Influenza Type B (PCR) (Negative) RSV (PCR) (Negative) POC Troponin I (0.01-0.04) ng/ml Imaging Data Chest x-ray: Attestation: I have reviewed the pertinent imaging results. My impression: Chest of heart failure with pleural effusions Radiologist's impression: Patient: CARLA LAYNE Facility:?[facility] Patient ID:?[id number] Site Patient ID:?[id number]. Site :?[id number] Study:?XRay Chest 2V-03/31/2022 3:16:08 PM Ordering Physician:Juancarlos Argueta Final Report: INDICATION: Shortness of breath. COMPARISON: 09/16/2021 portable chest radiograph. FINDINGS/IMPRESSION: Portable AP chest radiograph. New small to moderate-sized right pleural effusion. New moderate pulmonary vascular congestion. Unchanged prominence of the cardiac silhouette likely reflecting mild cardiomegaly. Findings may reflect congestive heart failure. No focal lung consolidation identified. Interval median sternotomy and cardiac valve replacement. No acute osseous findings. Dictated by Trip Godoy MD @ 03/31/2022 3:31:18 PM Dictated by: Trip Godoy MD @ 03/31/2022 15:31:39 (Electronic Signature) ECG Data Attestation: I personally reviewed and interpreted this ECG as follows: ECG interpretation date: 03/31/22 Interpretation: EKG shows atrial fibrillation with a controlled rate of 73, no acute ST wave changes are noted. There is some ST wave flattening noted anteriorly and inferiorly. Discharge Plan Discharge Clinical Impression: Diastolic congestive heart failure, NYHA class 3, Dyspnea, Pleural effusion, Elevated troponin level
[2022-03-31] MEDS: IPRAT-ALBUT 0.5-2.5 MG/3 ML NEB 1 NEB IH (14:47)
[2022-03-31 14:57] LABS: Lactate* 1.3 mmol/L (0.5-1.9)
[2022-03-31 14:58] LABS: Basophils Percent Auto 0.4 % (0.0-3.0); Eosinophils Percent Auto 6.8 % (0.0-7.0); Hematocrit 29.1 % (33.0-51.0); Hemoglobin* 9.3 gm/dL (12.0-16.0); Immature Granulocytes Pct Auto 0.3 %; Lymphocytes Percent Auto 9.1 % (20-44); Mean Corpuscular HGB Conc 32 gm/dL (32-36); Mean Corpuscular Hemoglobin 30 pg (26-34); Mean Corpuscular Volume 95 fL (80-100); Neutrophils Percent Auto 74.4 % (42.0-72.0); Platelet Count* 216 K/uL (140-440); RDW Coefficient of Variation % 18.7 % (11.5-15.5); Red Blood Count 3.06 m/uL (4.00-5.20); White Blood Count* 11.27 K/uL (4.50-11.00)
[2022-03-31 15:01] LABS: Slide Review Reflex No; Troponin, Point-of-Care* 0.16 ng/ml (0.01-0.04)
[2022-03-31 15:22] LABS: Albumin* 4.8 g/dL (3.3-5.0); Chloride* 95 mmol/L (96-114)
[2022-03-31 15:23] LABS: Potassium* 4.3 mmol/L (3.6-5.1); Sodium* 137 mmol/L (135-149)
[2022-03-31 15:24] LABS: INR 1.61 (0.91-1.10)
[2022-03-31 15:25] LABS: Alanine Aminotransferase* 29 U/L (4-35); Alkaline Phosphatase* 262 U/L (40-150); Aspartate Amino Transferase* 37 U/L (12-35); Bilirubin Direct* 0.2 mg/dL (0.0-0.5); Blood Urea Nitrogen* 51 mg/dL (7-30); Calcium* 9.1 mg/dL (8.4-10.6); Carbon Dioxide* 30 mmol/L (20-32); Estimated Glomerular Filt Rate 25 ml/min; Glucose* 77 mg/dL (60-115); Lipase* 285 U/L (23-300); Partial Thromboplastin Time* 38 Seconds (23-33); Total Protein* 8.3 g/dL (6.0-8.3)
[2022-03-31 15:27] LABS: D Dimer Quantitative* 1.32 ug/ml (0.00-0.50)
[2022-03-31 15:34] LABS: NT Pro B Type NatriureticPept* 13000 PG/mL (0-450)
[2022-03-31 15:42] LABS: PCR FLU A Negative PCR FLU A (Negative); PCR FLU B Negative PCR FLU B (Negative); PCR RSV Negative PCR RSV (Negative); SARS PCR* Negative SARS-CoV-2 (Negative)
--- NOTE | 2022-03-31 15:45 | ED.NURSE ---
Pt up to bedside commode. SOB with moving from bed to commode. Sats dropped from 98% on 1L to 95% with exertion.
--- NOTE | 2022-03-31 16:21 | P.IMHP_ITS ---
Hospitalist- H&P: HPI History of Present Illness Date Seen: 03/31/22 Chief complaint: Difficulty breathing Narrative: ADMISSION HISTORY AND PHYSICAL - HOSPITALIST Chief Complaint: acute on chronic dyspnea HPI: Cristina is a incredibly complex patient presents to the [place] ED with acute on chronic shortness of breath. Tonight she appears to be in some mild acute CHF. She is chronically weak, hypoxic on home O2. She notes in the last 24 hours she has been even more SOB. She is reporting a band like pressure across her chest. She made an appt with PCP this afternoon and took four of her torsemide (20mg x 4; 80mg) and thought she got a little temporary relief. She felt acute enough to come to ED instead of PCP appt. At her last cardiology appt in February she was felt to be in decompensated diastyolic heart failure and was offered admission, she declined. in lieu of admission, cards arranged a blood transfusion and increased her torsemide. her weight at that appt was 71.6kg. tonight it is 70.9 kg. She has a history of ischemic cardiomyopathy, status post mitral valve repair and tricuspid repair in September 2021, requiring a prolonged hospitalization 09/24/21 thru 10/31/2021 (At [facility]), then to SNF. She was delirious, intubated with 2 failed extubation trials, acute epistaxis and she developed KYLAH on CKD requiring dialysis temporarily. She recovered kidney function. Creatinine at the time of dismissal was 1.7. ASSESSMENT / PLAN FROM [facility] FEBRUARY 2022 #1 Acute Diastolic (Congestive) Heart Failure (HCC) Symptoms and exam are consistent with decompensated heart failure. This is worsened by hemoglobin today of 7.9. I recommended she increase the torsemide to 60 mg b.i.d. for three days with a concomitant increase in potassium to 20 mEq b.i.d. for three days and then reduce back to 60 mg of torsemide daily and 20 mEq potassium daily. If symptoms do not improve she is to contact the office. #2 Dyspnea Multifactorial While she overall looks less frail today, she was clearly orthopneic and the decompensated heart failure is contributing to the dyspnea. But the significant anemia is also a significant contribution. #3 Anemia Of Chronic Disease With a hemoglobin of 7.9, NT proBNP up to 13,000 from 9000 as well as her heart failure symptoms, I believe this warrants a unit of packed cells. I have a call out to her primary to arrange. Because of the decompensate heart failure I recommend that the unit of blood be followed with 120 mg of IV Lasix. If they are able to get the blood in tomorrow the patient will not need to take the extra 60 mg of torsemide tomorrow. #4 Chronic Kidney Disease Stage 4 Glomerular Filtration Rate 15-29 (HCC) Creatinine her ballpark at 1.82. BUN is up to 60 which is higher than she has been. Patient reports that the stool sample was negative. Will need to be monitored. #5 Contusion Lower Limb Initial Right Contusion on her right paige is definitely tender. She is immunosuppressed and I am concerned this could be a smoldering cellulitis. She sees Rheumatology later today and I will discuss with them. # 6. Atrial fibrillation Atrial fib is chronic, rates appear controlled. I doubt is contributing significantly to her current symptoms. She is chronically anticoagulated on Eliquis. # 7. Status post mitral valve replacement and tricuspid valve repair Should be able to stop the aspirin April 09. I offered the patient hospitalization twice; she declined. ASSESSMENT / PLAN FROM CARDS TEAM AT [facility] IN DECEMBER 2021 #1 Dyspnea Multifactorial Patient's dyspnea is multifactorial, combination of significant anemia, dec onditioning, and heart failure preserved ejection fraction. Pleased she has started cardiac rehab. Still requires oxygen. This could be monitored further why she is in cardiac rehab. #2 Acute Diastolic (Congestive) Heart Failure (HCC) NT proBNP is double what she was in the spring at 8800. Exam suggests fluid. She has previously done well with just an extra 20 mg of torsemide so I asked her to do that through the weekend. If she gets dizzy or lightheaded to drop back to 60 mg of torsemide daily. She is to notify the office on Wednesday with symptom and weight update. She may be a candidate for CardioMEMS implant. This would more accurately guide her diuretic regime to that we do not under or under diurese her. I discussed with the CardioMEMS team. They recommend sorting out the anemia first. Currently do not recommend SGLT2 inhibitor given tenuous renal status. #3 Replacement Mitral Valve Tissue By echocardiogram October appropriately. She has not been taking aspirin 81 mg daily as recommended by the surgical team. I verified with them that she should be taking this. She was advised to do so. She can stop six months after the surgery. #4 Repair Tricuspid Valve Status Post By echocardiogram Lily function appropriately. #5 Anemia Of Chronic Disease I think this is a big component for her dyspnea. I agree with consult to Hematology for further assessment and chef's assistant with management. #6 Chronic Kidney Disease Stage 4 Glomerular Filtration Rate 15-29 (HCC) Creatinine up slightly. Since she complains of early satiety I hope is just elevated due to renal compression and will improve with diuresing. # 7. Vertigo This is been persistent for more than two weeks and I therefore recommended the patient contact her primary for evaluation and management strategies. # 8. Chronic atrial fibrillation Present on exam. She is on Eliquis 5 mg b.i.d. which is appropriate. But if her weight drops below or below 65 kg it should be reduced to 2.5 mg b.i.d. I've updated the PFSH, medications and allergies in the [facility] tabs. INVESTIGATIONS: LABS/MICRO/ECG/IMAGING WBC 11.3 Hemoglobin 9.3 Platelets 216 D-dimer 1.32 INR 1.61 (on Eliquis) Creatinine 2.0, BUN 51 Normal electrolytes BNP 17833 last check in February 28 at [facility] it is 13,482 Troponin is elevated 0.16, has remained so during her duration in the ED AST and alk-phos are mildly increased UA 2 days ago shows 3+ leukocyte esterase, positive nitrate, positive nitrite, culture grew E coli. She may be chronically colonized as every urine culture in the last 3 months shows E coli or Enterococcus faecalis -she was given sulfa 1 tab p.o. b.i.d. for 10 tabs 2 days ago Negative respiratory panel CXR (1V, compared to our September 28 film) New small to moderate-sized right pleural effusion. New moderate pulmonary vascular congestion. Unchanged prominence of the cardiac silhouette likely reflecting mild cardiomegaly. Findings may reflect congestive heart failure. REVIEW OF SYSTEMS: 12-point ROS completed with patient and negative unless otherwise stated in HPI or below. PHYSICAL EXAM: CODE STATUS: FULL CODE CONSTITUTIONAL: sweet, alert. leans forward or to her left b/c of dyspnea VITAL SIGNS: see record. HEENT: Normocephalic, atraumatic. PERRL, EOMI, conjunctivae pink, no scleral icterus. Ears and nose externally normal. Pharynx normal. NECK: 5-10 cm of JVD. No carotid bruit, no thyromegaly, no adenopathy. CHEST: Clear to auscultation bilaterally with decreased auscultation at the bases. HEART: S1 and S2 normal, S3 noted. No harsh murmurs. Edema 1+ MUSCULOSKELETAL: No gross joint deformity or swelling. NEURO: Cranial nerves intact. Grossly intact. No asymmetric findings. SKIN: No rashes, petechiae, concerning changes PSYCHIATRIC: Euthymic. [facility] DVT: on eliquis GI: PO intake, PPI Time spent: 70 minutes examining patient, conferring with family and patient, care staff, developing care plan History of Present Illness Cristina is a 76-year-old female with known severe tricuspid regurgitation and diastolic CHF history who presented to the emergency room by ambulance this morning. Patient has a long history of acute on chronic dyspnea, with a flare over the past 24 hr. She was unable to sleep at all overnight secondary to dyspnea. She feels that she has been diuresing well (takes 20-40 mg of torsemide daily, based on her weight). Her current weight at home is 171 lb (77 kg), which is down approximately 5 kg for most recent hospital stay at [facility]. She is unsure if her weight loss is related to diuresis or poor p.o. intake. She notes that she has not felt like eating recently. She has had intermittent nausea without any vomiting or diarrhea. Patient has been much more symptomatic from her tricuspid regurgitation and known diastolic CHF recently. She has been hospitalized at the [facility] and [facility] multiple times this spring, most recently for MSSA bacteremia (transferred to [facility] from [facility] on August 19), and diastolic CHF flare from August 31-. She has 2 more days left of IV Ancef for her MSSA bacteremia (no endocarditis on DAYNE, performed at [facility]), and has evaluations at [facility] scheduled next week to evaluate further for possible tricuspid valve replacement. Currently, Cristina describes her quality of life as poor. ER course: - Lasix 20 mg IV x1 - DuoNeb x1 - Elevated troponin at 0.4 - Elevated BNP at 10,000 (baseline typically 4000) - pulmonary congestion on Chest x-ray - noted to have #1 5-beat run of V-tach while in the emergency room Given patient's multiple recent hospitalizations at [facility], I did discuss t he case with Dr. Smith, kitchen stewardess at [facility], prior to transfer to the floor. Patient is clinically stable, and there is currently no bed availability at [facility], so we will admit locally for management. 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 , 09/10/21) Levothyroxine (Verified Allergy, Unknown, boils, hives, 09/10/21) patient allergic to generic form of levothyroxine and can only take the brand name synthroid Hydrocodone (Verified Adverse Reaction, Mild, nausea per previous records received., 09/10/21) Home Medications Lyrica (Pregabalin) 25 Mg Cap 50 Mg PO HS Bupropion Hcl Xl (24 HR) (Bupropion HCl) 150 Mg Tabcr 150 Mg PO DAILY 90 Days Omeprazole 20 Mg Cap 20 Mg PO DAILY 90 Days Synthroid (Levothyroxine Sodium) 125 Mcg Tab 125 Mcg PO DAILY 90 Days Celexa (Citalopram Hydrobromide) 20 Mg Tab 20 Mg PO DAILY 90 Days Reported Torsemide 20 Mg Tab 30 Mg PO DAILY Hydroxychloroquine Sulfate 200 Mg Tab 400 Mg PO DAILY Iron (Ferrous Sulfate) (Ferrous Sulfate) 325 Mg Tab 325 Mg PO DAILY Prednisone 5 Mg Tab 5 Mg PO DAILY Eliquis (Apixaban) 5 Mg Tab 5 Mg PO BID Arava (Leflunomide) 10 Mg Tab 10 Mg PO MOTUWETHFR TAKES WEDNESDAY THROUGH WEDNESDAY Imodium (Loperamide Hcl) 2 Mg Cap 4 Mg PO DAILY Vitamin C (Ascorbic Acid) 1,000 Mg Tab 1,000 Mg PO DAILY Past Medical History Severe TR, follows with [facility]. Most recent TTE (08/2021): Final Impressions: 1. Normal left ventricular size, mildly increased wall thickness, normal global systolic function, calculated EF of 67 %. 2. Right ventricular cavity size is mildly enlarged, global systolic RV function is normal. 3. Moderate-severe biatrial enlargement. 4. The mitral valve is sclerotic, moderate mitral regurgitation. 5. Tricuspid valve is non coapting. 6. Severe tricuspid regurgitation; unable to estimate PASP in setting of severe TR. 7. The inferior vena cava is dilated, respiratory size variation less than 50%, consistent with elevated right atrial pressure. 8. 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 MSSA bacteremia, August 2021. Seen locally, then transferred to [facility]. Negative TTE and DAYNE for endocarditis on 4 week course of IV cefazolin, stop date of 09/17/2019 Obstructive sleep apnea on CPAP Gastroesophageal reflux Periodic limb movement disorder Rheumatoid arthritis, on chronic daily Prednisone Post-surgical hypothyroidism Hypertension Atrial fibrillation, permanent. 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 Bx proven. See scanned [facility] note. 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 Past Surgical History Hx of total knee arthroplasty L History of thyroidectomy mass as a child Hx of right knee surgery Hx of hysterectomy for benign disease ovaries in place Hx of excision of mass left elbow History of phacoemulsification of cataract of both eyes with intraocular lens implantation L 03/13/15, R 03/27/15. See [facility] Op Notes. History of blepharoplasty Bilateral 03/11/16. See [facility] Op Note. 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 Remote smoker, quit in 1969. No concerning alcohol use. [facility] Medical History Anemia in chronic kidney disease Atrial fibrillation Chronic kidney disease Collagenous colitis Depression Diastolic congestive heart failure, NYHA class 3 Hypertension Ischemic cardiomyopathy MSSA bacteremia EDITH (obstructive sleep apnea) Postoperative hypothyroidism Pulmonary sarcoidosis Rheumatoid arthritis (1964) Tobacco dependence in remission Upper gastrointestinal hemorrhage Vitamin D deficiency Surgical History History of blepharoplasty History of hysterectomy for benign disease History of mitral valve replacement History of right knee surgery History of thyroidectomy History of total knee replacement Hx of tricuspid valve repair Social History (Updated 03/31/22 @ 17:09 by Giselle Mclaughlin MD) Narrative: SOCIAL HISTORY: She is . [place] but in the last year she moved to a town home nearby that is wheelchair accessible for her . He has muscular dystrophy. She misses living [place] the country. She describes a very stressful spring where she had trouble with many aspects of the early in the COVID-19 pandemic when nobody wanted to come in contact with anybody else. In a way that kept her busy. She has 3 adult ch ildren. One stepdaughter. She is retired. She is exercising by walking the dog every other day. She used to do circuit training and swimming. She is not sexually active. Highest level of school completed/degree received: Bachelor's degree Smoking Status: Former smoker What tobacco products do you use: cigarettes Smoking quit date/years: >15 years ago Do you use any of these nicotine containing products: None Second hand tobacco smoke exposure: No How often do you have a drink containing alcohol: never How often do you have six or more drinks on one occasion: Never AUDIT-C Alcohol total score: 0 Non-prescribed substance use: denies use Caffeine: Yes (2 cups) service: No Meds Home Medications and Allergies Home Medications Medication Instructions Recorded Confirmed Type apixaban 5 mg tablet 5 mg PO BID 11/18/21 03/31/22 History ascorbic acid (vitamin C) 1,000 mg 1,000 mg PO DAILY 11/18/21 03/31/22 History tablet bupropion HCl 150 mg 24 hr tablet, 150 mg PO DAILY 11/18/21 03/31/22 History extended release citalopram 20 mg tablet 20 mg PO DAILY 11/18/21 03/31/22 History ferrous sulfate 325 mg (65 mg 650 mg PO DAILY 11/18/21 03/31/22 History iron) tablet hydroxychloroquine 200 mg tablet 400 mg PO DAILY 11/18/21 03/31/22 History levothyroxine 125 mcg tablet 125 mcg PO DAILY 11/18/21 03/31/22 History loperamide 2 mg capsule 4 mg PO DAILY 11/18/21 03/31/22 History omeprazole 20 mg capsule,delayed 20 mg PO DAILY 11/18/21 03/31/22 History release prednisone 5 mg tablet 5 mg PO DAILY 11/18/21 03/31/22 History aspirin 81 mg tablet,delayed 81 mg PO DAILY 01/06/22 03/31/22 History release (Adult Low Dose Aspirin) metoprolol succinate 50 mg 25 mg PO BID 01/06/22 03/31/22 History tablet,extended release 24 hr potassium chloride 20 mEq 20 meq PO DAILY 01/06/22 03/31/22 History tablet,extended release(part/cryst) Allergies Allergy/AdvReac Type Severity Reaction Status Date / Time gabapentin Allergy Mild possible Verified 03/31/22 17:05 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 levothyroxine Allergy Unknown boils, Verified 03/31/22 17:05 hives hydrocodone AdvReac Mild nausea per Verified 03/31/22 17:05 previous records received Exam Const: Vital Signs, click to edit/add: Vital Signs - 24 hr 03/31/22 13:48 03/31/22 14:50 03/31/22 15:00 Temperature 97.5 F L Pulse Rate 71 81 Pulse Rate [Right Pulse Oximeter] 79 Respiratory Rate 20 Blood Pressure Blood Pressure [Ri ght Upper Arm] 144/83 H Pulse Oximetry 99 96 98 Oxygen Delivery Me thod Room Air Nasal Cannula Nasal Cannula Oxygen Flow Rate 1 1 03/31/22 15:01 03/31/22 15:15 03/31/22 15:30 Temperature Pulse Rate 73 77 Pulse Rate [Right Pulse Oximeter] Respiratory Rate Blood Pressure 133/89 Blood Pressure [Ri ght Upper Arm] Pulse Oximetry 98 98 Oxygen Delivery Me thod Nasal Cannula Nasal Cannula Nasal Cannula Oxygen Flow Rate 1 1 1 03/31/22 15:31 Temperature Pulse Rate 72 Pulse Rate [Right Pulse Oximeter] Respiratory Rate Blood Pressure 134/77 Blood Pressure [Ri ght Upper Arm] Pulse Oximetry 98 Oxygen Delivery Me thod Nasal Cannula Oxygen Flow Rate 1 Hospitalist - H&P: Result Labs Labs: Short CBC 03/31/22 Range/Units 14:35 WBC 11.27 H (4.50-11.00) K/uL Hgb 9.3 L (12.0-16.0) gm/dL Hct 29.1 L (33.0-51.0) % Plt Count 216 (140-440) K/uL BMP 03/31/22 14:35 Sodium 137 Potassium 4.3 Chloride 95 L Carbon Dioxide 30 BUN 51 H Creatinine 2.0 H Glucose 77 Calcium 9.1 Liver Function 03/31/22 03/31/22 Range/Units 14:35 14:49 Total Bilirubin 1.0 Cancelled (0.1-1.5) mg/dL Direct Bilirubin 0.2 Cancelled (0.0-0.5) mg/dL AST 37 H Cancelled (12-35) U/L ALT 29 Cancelled (4-35) U/L Alkaline Phosphatase 262 H Cancelled (40-150) U/L Albumin 4.8 Cancelled (3.3-5.0) g/dL Assessment and Plan Assessment and plan (1) Diastolic congestive heart failure, NYHA class 3: Problem comment: Given IV Lasix, 80 mg in the emergency room. At her last cardiology appointment she was at 71.6 kg and this was considered volume up, she felt best when she was at about 68.9 kg. Tonight 70.9 kg. When she was at about 72 kg cardiology had her take 60 mg of torsemide p.o. b.i.d. also instructing to keep her hemoglobin at 10-10.5. When given blood she is also given 120 mg of IV Lasix, skipping her oral torsemide the day of the Lasix and blood. -we will monitor her renal function, electrolytes and volume carefully. Daily weights orthostatic blood pressures have been ordered. I suspect she may need another dose of IV Lasix verses increasing her oral torsemide as above. -repeat echocardiogram -discuss case with [facility] Status: Acute (2) Ischemic cardiomyopathy: Problem comment: -followed by [facility] -troponin is up minimally, flat. Given renal function is likely not clearing. -continue Eliquis, aspirin, metoprolol -trend, repeat echo Status: Acute (3) History of mitral valve replacement: Problem comment: 09/28 - [place] Mitral valve was replaced with a 29 millimeter [place] epic tissue valve Status: Acute (4) Hx of tricuspid valve repair: Problem comment: severe tricuspid regurg; valve repaired in 09/28 Status: Acute (5) Anemia in chronic kidney disease: Problem comment: Likely from chronic hypertension chronic NSAID use. All creatinine is usually about 1.8. She is transfusion dependent and has been iron resistant. Goal is to keep her hemoglobin greater than 8. Seen Hematology and has a standing blood transfusion ordered at our [facility]. Status: Acute (6) Atrial fibrillation: Problem comment: -on Eliquis and rate control with metoprolol Status: Acute (7) UTI (urinary tract infection): Problem comment: dx on 03/29, nikkoli in culture. was on sulfa. will give 1 gram rocephin and let day team decide if continued doses are needed. maybe colonization. Status: Acute (8) Chronic kidney disease: Problem comment: chronic HTN; chronic NSAID use --> chronic iron def anemia; transfusion dependent. Status: Acute (9) Hypertension: Problem comment: Continue home meds. Blood pressure is at goal. Status: Acute (10) Postoperative hypothyroidism: Problem comment: Follow TSH, continue home regimen Status: Acute (11) EDITH (obstructive sleep apnea): Status: Acute (12) Pulmonary sarcoidosis: Status: Acute (13) Depression: Problem comment: wellbutrin/lexapro Status: Acute (14) Rheumatoid arthritis: Problem comment: DMARD Avara, prednison, hydroxychloriquine Status: Acute
--- NOTE | 2022-03-31 16:32 | ED.NURSE ---
Report to [facility]
[2022-03-31 16:33] LABS: Troponin, Point-of-Care* 0.16 ng/ml (0.01-0.04)
[2022-03-31] MEDS: FUROSEMIDE 10 MG/ML inj 80 MG IVP (16:37)
--- NOTE | 2022-03-31 17:01 | ED.NURSE ---
Pt and belongings brought to [facility] via WC
[2022-03-31] MEDS: ACETAMINOPHEN 325 MG TABLET PO (18:04)
[2022-03-31] MEDS: PANTOPRAZOLE SODIUM 40 MG INJ IVP (18:06)
[2022-03-31] MEDS: OXYCODONE 5 MG TABLET PO (18:13)
[2022-03-31] MEDS: cefTRIAXone 1 GM in 0.9 % SODIUM CHLORIDE Mini-bag 100 ML IVPB (18:17)
--- NOTE | 2022-03-31 18:50 | PC.NURSE ---
New admission: Patient comes from home with to the ED for increased shortness of breath. Was admitted to med/surg around 1700 today. Patient is chronically on 2L NC. 18g PIV in left AC is patent and intact. Lung sounds are coarse. Bowel sounds active. LBM was this morning and it was normal. Voiding without difficulty. Had been diagnosed in urgent care with a UTI a couple days ago. Repeating urine today. Getting IV rocephin. Has severe pain in upper abdomen that radiates to the back. MD aware. Tylenol and oxy given for this. Also gave IV protonix for this. Patient is alert and oriented. BP is within normal limits. Telemetry shows afib but controlled rate. Will place catheter this evening so patient can tolerate diuresing without being exhausted. consulting with [facility] regarding CHF and a possible procedure to monitor this at some point. Some edema in lower extremities. Plans to return home with when discharged. Tolerating a regular diet.
[2022-03-31] MEDS: FUROSEMIDE 10 MG/ML inj 40 MG IVP (19:33)
[2022-03-31 19:48] LABS: Appearance Urine Clear (Clear); Bilirubin Urine Negative (Negative); Blood Urine Negative (Negative); Color Urine Yellow (Yellow); Glucose Urine Negative (Negative); Ketones Urine Negative (Negative); Leukocyte Esterase Urine Negative (Negative); Nitrite Urine Negative (Negative); Protein Urine Negative (Negative); Specific Gravity Urine 1.015 (1.000-1.030); Urobilinogen Urine 0.2 (0.2-1.0)
[2022-03-31 20:04] LABS: RBC Urine 0-2 (0-2); WBC Urine 0-2 (0-5)
[2022-03-31] MEDS: SODIUM CHLORIDE 0.9 % (FLUSH) 10 ML SYRINGE 5 ML IVF (20:31)
[2022-03-31] MEDS: APIXABAN 5 MG TABLET PO (20:32)
[2022-03-31] MEDS: METOPROLOL SUCCINATE (XL) 25 MG TAB PO (20:32)
[2022-03-31 21:53] LABS: Troponin I* 0.26 ng/mL (0.01-0.04)
[2022-03-31 22:15] LABS: Chloride* 96 mmol/L (96-114); Potassium* 4.8 mmol/L (3.6-5.1); Sodium* 137 mmol/L (135-149)
[2022-03-31 22:18] LABS: Blood Urea Nitrogen* 52 mg/dL (7-30); Carbon Dioxide* 33 mmol/L (20-32); Creatinine* 2.1 mg/dL (0.5-1.5); Est. Creatinine Clearance* 20.19; Estimated Glomerular Filt Rate 24 ml/min; Glucose* 89 mg/dL (60-115)
--- NOTE | 2022-03-31 23:22 | PC.NURSE ---
Pt. chronically on 2L NC. Alert and oriented. Lung sounds are coarse. Bowel sounds active. Trop and creat. elevated, MD aware. EKG ordered and completed. VSS. Pt. denies any pain, N/V/lightheadedness. Pt. reports still feeling SOB. resting comfortably. painting patent and draining.
[2022-04-01] VITALS (9 sets, daily range): BP systolic 108–129; BP diastolic 65–78; PULSE 62–75; RESP 16–28; TEMP 36.6–36.9; O2SAT 95–96
[2022-04-01] MEDS: OXYCODONE 5 MG TABLET PO (00:43)
--- NOTE | 2022-04-01 06:17 | PC.NURSE ---
Shift note: No c/o SOB while in bed, severally SOB with any exertion, O2 sats remain stable, above 89-90% on 2L NC. Chronic back pain was treated per eMAR with relief
[2022-04-01 06:20] LABS: HCO3 VBG 35 mmol/L (21-28); Ionized Calcium* 1.14 mmol/L (1.11-1.30); PCO2 VBG 56 mmHG (40-50); PO2 VBG 21.1 mmHG (25-47); pH VBG 7.407 (7.32-7.43)
[2022-04-01 06:46] LABS: Chloride* 96 mmol/L (96-114)
[2022-04-01 06:47] LABS: Albumin* 4.3 g/dL (3.3-5.0); Potassium* 4.4 mmol/L (3.6-5.1); Sodium* 138 mmol/L (135-149)
[2022-04-01 06:50] LABS: Blood Urea Nitrogen* 53 mg/dL (7-30); Carbon Dioxide* 36 mmol/L (20-32); Creatinine* 2.1 mg/dL (0.5-1.5); Est. Creatinine Clearance* 20.19; Estimated Glomerular Filt Rate 24 ml/min; Glucose* 82 mg/dL (60-115)
[2022-04-01 06:51] LABS: Magnesium* 2.2 mg/dL (1.5-2.6)
[2022-04-01 06:53] LABS: C Reactive Protein* 4.4 mg/dL (0.5-1.0)
[2022-04-01 06:56] LABS: NT Pro B Type NatriureticPept* 12900 PG/mL (0-450)
[2022-04-01 06:58] LABS: Hematocrit 26.3 % (33.0-51.0); Hemoglobin* 8.5 gm/dL (12.0-16.0); Mean Corpuscular HGB Conc 32 gm/dL (32-36); Mean Corpuscular Hemoglobin 31 pg (26-34); Mean Corpuscular Volume 96 fL (80-100); Platelet Count* 206 K/uL (140-440); Red Blood Count 2.75 m/uL (4.00-5.20)
[2022-04-01 07:07] LABS: Slide Review Reflex No
[2022-04-01 07:27] LABS: Troponin I* 0.27 ng/mL (0.01-0.04)
[2022-04-01] MEDS: OMEPRAZOLE 20 MG CAPSULE DR PO (07:32)
[2022-04-01] MEDS: ACETAMINOPHEN 325 MG TABLET PO ×2 (07:37→16:07)
[2022-04-01] MEDS: TORSEMIDE 20 MG TABLET 60 MG PO ×2 (08:59→14:28)
[2022-04-01] MEDS: POTASSIUM CHLORIDE 10 MEQ CAPSULE ER 20 MEQ PO (09:00)
[2022-04-01] MEDS: APIXABAN 5 MG TABLET PO ×2 (09:00→20:05)
[2022-04-01] MEDS: ASPIRIN 81 MG TABLET EC PO (09:00)
[2022-04-01] MEDS: buPROPion XL 150 MG TABLET PO (09:01)
[2022-04-01] MEDS: LOPERAMIDE HCL 2 MG CAPSULE 4 MG PO (09:01)
[2022-04-01] MEDS: HYDROXYCHLOROQUINE 200 MG TABLET 400 MG PO (09:01)
[2022-04-01] MEDS: CITALOPRAM HYDROBROMIDE 20 MG TABLET PO (09:01)
[2022-04-01] MEDS: METOPROLOL SUCCINATE (XL) 25 MG TAB PO ×2 (09:02→20:05)
[2022-04-01] MEDS: predniSONE 5 MG TABLET PO (09:02)
[2022-04-01] MEDS: SODIUM CHLORIDE 0.9 % (FLUSH) 10 ML SYRINGE 5 ML IVF ×3 (09:03→20:05)
--- NOTE | 2022-04-01 10:00 | P.IMPN_ITS ---
Progress Note: A&P Assessment and plan (1) Dyspnea: Problem details: - multifactorial given diastolic CHF and anemia, history of pulmonary sarcoid. No evidence of infectious process contributing Status: Acute Assessment and Plan: - diurese as noted below - follow Hgb, transfuse for Hgb <8 - TTE today - Appreciate RT input, consider increasing steroid treatment (currently on 5mg daily for RA) (2) Diastolic congestive heart failure, NYHA class 3: Problem details: - during last outpatient cards appointment weighed 71.6 kg and this was considered volume up, feels best around 68.9 kg. - weight on admission 70.9 kg - home torsemide dose 60mg/day, doubled on admission to 60mg BID - continue to follow Is/Os, daily weights - repeat echocardiogram today - primary Cardiology contact is Emi Georges APRN at [phone] (message left 04/01) Status: Acute Assessment and Plan: - called and left message for patient's care team (Emi Wilson APRN, at [phone])? - TTE today - continue higher Torsemide dose - weight noted to be down 1.3kg from admission yesterday (3) Ischemic cardiomyopathy: Problem details: - followed by [facility] - elevated troponin. Given renal function is likely not clearing - continue Eliquis, aspirin, metoprolol - trend, repeat echo Status: Acute (4) History of mitral valve replacement: Problem details: - 09/28 at [facility]. Mitral valve replaced with 29 millimeter Saint Jovani epic tissue valve Status: Acute (5) Hx of tricuspid valve repair: Problem details: - known severe TR; valve repaired in 09/28 Status: Acute (6) Anemia in chronic kidney disease: Problem details: - Likely from chronic hypertension, chronic NSAID use. Baseline Creatinine 1.8 - historically iron resistant, follows with Hematology, initiated Aranesp injections 01/29. Goal hemoglobin > 8. Has a standing blood transfusion ordered at [facility] - needs 120 mg of Lasix after blood when transfused Status: Acute (7) Atrial fibrillation: Problem details: - on Eliquis, rate control with Metoprolol Status: Acute Assessment and Plan: - continue home meds, patient remains rate controlled (8) UTI (urinary tract infection): Problem details: - dx as outpatient 03/29, + E Coli. Treated with sulfa. Rocephin initiated 03/31. Query colonization. Status: Acute Assessment and Plan: - patient typically presents with low back pain as symptom. This has persisted, will continue Ceftriaxone and follow (9) Chronic kidney disease: Problem details: - sees Dr. Rascon of Nephrology as an outpatient Status: Acute (10) Hypertension: Problem details: - Quiescent Status: Acute (11) Postoperative hypothyroidism: Problem details: - Elevated TSH, T4 pending, continue home Synthroid Status: Acute (12) EDITH (obstructive sleep apnea): Status: Acute (13) Pulmonary sarcoidosis: Problem details: - unclear if contributing to dyspnea Status: Acute (14) Depression: Problem details: - on wellbutrin/lexapro as outpatient Status: Acute (15) Rheumatoid arthritis: Problem details: - on outpatient DMARD Avara, prednisone (5mg daily), hydroxychloroquine Status: Acute Plan - per above - continue Apixaban for ppx - will need 1-2 more days in the hospital Subjective Date Seen: 04/01/22 Interval history: No acute events overnight. Cristina continues to have dyspnea with ADLs, diuresing well (1.3kg down from a dmission). Tolerating painting catheter (placed for diuresis). Repeat TTE scheduled for today. Exam Narrative: Exam Narrative: GEN: Alert and oriented, sitting comfortably in bedside chair. She has 3-4 word dyspnea while talking chest HEENT: Normal external ears, EOMIs bilaterally, no scleral icterus CV: Rate controlled atrial fibrillation R: Crackles bilateral bases, wheezing bilateral apices. Air movement mildly decreased, adequate Ext: 1-2+ ankle edema Skin: Scattered bruising of extremities, no other concerning skin lesions or rashes on exposed skin Neuro: No focal deficits, no resting tremor Psych: Appropriate Const: Vital Signs, click to edit/add: Vital Signs - 24 hr 03/31/22 13:48 03/31/22 14:50 03/31/22 15:00 Temperature 97.5 F L Pulse Rate 71 81 Pulse Rate [Pulse Oximeter] Pulse Rate [Right Pulse Oximeter] 79 Respiratory Rate 20 Blood Pressure Blood Pressure [Le ft Arm] Blood Pressure [Ri ght Arm] Blood Pressure [Ri ght Upper Arm] 144/83 H Pulse Oximetry 99 96 98 Oxygen Delivery Me thod Room Air Nasal Cannula Nasal Cannula Oxygen Flow Rate 1 1 03/31/22 15:01 03/31/22 15:15 03/31/22 15:30 Temperature Pulse Rate 73 77 Pulse Rate [Pulse Oximeter] Pulse Rate [Right Pulse Oximeter] Respiratory Rate Blood Pressure 133/89 Blood Pressure [Le ft Arm] Blood Pressure [Ri ght Arm] Blood Pressure [Ri ght Upper Arm] Pulse Oximetry 98 98 Oxygen Delivery Me thod Nasal Cannula Nasal Cannula Nasal Cannula Oxygen Flow Rate 1 1 1 03/31/22 15:31 03/31/22 15:32 03/31/22 15:45 Temperature Pulse Rate 72 74 81 Pulse Rate [Pulse Oximeter] Pulse Rate [Right Pulse Oximeter] Respiratory Rate Blood Pressure 134/77 Blood Pressure [Le ft Arm] Blood Pressure [Ri ght Arm] Blood Pressure [Ri ght Upper Arm] Pulse Oximetry 98 98 99 Oxygen Delivery Me thod Nasal Cannula Nasal Cannula Nasal Cannula Oxygen Flow Rate 1 1 1 03/31/22 16:00 03/31/22 16:01 03/31/22 16:15 Temperature Pulse Rate 74 77 69 Pulse Rate [Pulse Oximeter] Pulse Rate [Right Pulse Oximeter] Respiratory Rate Blood Pressure 135/80 Blood Pressure [Le ft Arm] Blood Pressure [Ri ght Arm] Blood Pressure [Ri ght Upper Arm] Pulse Oximetry 98 99 98 Oxygen Delivery Me thod Nasal Cannula Nasal Cannula Nasal Cannula Oxygen Flow Rate 1 1 1 03/31/22 16:32 03/31/22 13:27 03/31/22 17:08 Temperature 98.3 F Pulse Rate Pulse Rate [Pulse Oximeter] 80 Pulse Rate [Right Pulse Oximeter] Respiratory Rate 24 Blood Pressure 142/83 H Blood Pressure [Le ft Arm] 135/64 Blood Pressure [Ri ght Arm] Blood Pressure [Ri ght Upper Arm] Pulse Oximetry 98 95 Oxygen Delivery Me thod Nasal Cannula Nasal Cannula Nasal Cannula Oxygen Flow Rate 1 1 2 03/31/22 17:35 03/31/22 18:49 03/31/22 18:49 Temperature Pulse Rate Pulse Rate [Pulse Oximeter] Pulse Rate [Right Pulse Oximeter] Respiratory Rate 24 Blood Pressure Blood Pressure [Le ft Arm] Blood Pressure [Ri ght Arm] Blood Pressure [Ri ght Upper Arm] Pulse Oximetry 95 95 95 Oxygen Delivery Me thod Nasal Cannula Nasal Cannula Oxygen Flow Rate 2 2 03/31/22 19:00 03/31/22 23:00 03/31/22 23:00 Temperature 98.1 F 98.2 F Pulse Rate Pulse Rate [Pulse Oximeter] 75 73 73 Pulse Rate [Right Pulse Oximeter] Respiratory Rate 20 20 20 Blood Pressure Blood Pressure [Le ft Arm] 104/65 101/65 Blood Pressure [Ri ght Arm] Blood Pressure [Ri ght Upper Arm] Pulse Oximetry 95 95 Oxygen Delivery Me thod Nasal Cannula Nasal Cannula Oxygen Flow Rate 2 2 04/01/22 03:00 04/01/22 07:00 04/01/22 07:00 Temperature 98 F 98.1 F Pulse Rate Pulse Rate [Pulse Oximeter] 74 75 75 Pulse Rate [Right Pulse Oximeter] Respiratory Rate 24 28 H 28 H Blood Pressure Blood Pressure [Le ft Arm] 108/65 Blood Pressure [Ri ght Arm] 129/69 Blood Pressure [Ri ght Upper Arm] Pulse Oximetry 95 95 Oxygen Delivery Me thod Nasal Cannula Nasal Cannula Oxygen Flow Rate 2 2 Labs Labs: Laboratory Results - last 24 hr 03/31/22 03/31/22 03/31/22 06:39 14:35 14:35 WBC 11.27 H RBC 3.06 L Hgb 9.3 L Hct 29.1 L MCV 95 MCH 30 MCHC 32 RDW Coeff of Estrella 18.7 H Plt Count 216 Neut % (Auto) 74.4 H Lymph % (Auto) 9.1 L [place] % (Auto) 9.0 Eos % (Auto) 6.8 Baso % (Auto) 0.4 Neut # (Auto) 8.40 H Lymph # (Auto) 1.00 [place] # (Auto) 1.00 H Eos # (Auto) 0.80 H Baso # (Auto) 0.00 Abs Immat Gran (auto) 0.00 Imm/Tot Granulo (auto) 0.3 INR 1.61 H APTT 38 H D-Dimer Quant (PE/DVT) 1.32 H VBG pH VBG pCO2 VBG pO2 VBG HCO3 Sodium Potassium Chloride Carbon Dioxide BUN Creatinine Estimated Creat Clear Estimated GFR Glucose Lactate 1.3 Calcium Ionized Calcium Cade Magnesium Total Bilirubin Direct Bilirubin AST ALT Alkaline Phosphatase Troponin I C-Reactive Protein NT-Pro-B Natriuret Pep Total Protein Albumin Lipase TSH Urine Color Urine Appearance Urine pH Ur Specific [place] Urine Protein Urine Glucose (UA) Urine Ketones Urine Blood Urine Nitrite Urine Bilirubin Urine Urobilinogen Ur Leukocyte Esterase Urine RBC Urine WBC Urine WBC Clumps Ur Squamous Epith Cells Urine Bacteria SARS-CoV-2 (PCR) Influenza Type A (PCR) Influenza Type B (PCR) RSV (PCR) POC Troponin I 03/31/22 03/31/22 03/31/22 14:35 14:35 14:35 WBC RBC Hgb Hct MCV MCH MCHC RDW Coeff of Estrella Plt Count Neut % (Auto) Lymph % (Auto) [place] % (Auto) Eos % (Auto) Baso % (Auto) Neut # (Auto) Lymph # (Auto) [place] # (Auto) Eos # (Auto) Baso # (Auto) Abs Immat Gran (auto) Imm/Tot Granulo (auto) INR APTT D-Dimer Quant (PE/DVT) VBG pH VBG pCO2 VBG pO2 VBG HCO3 Sodium 137 Potassium 4.3 Chloride 95 L Carbon Dioxide 30 BUN 51 H Creatinine 2.0 H Estimated Creat Clear 21.20 Estimated GFR 25 Glucose 77 Lactate Calcium 9.1 Ionized Calcium Cade Magnesium Total Bilirubin 1.0 Direct Bilirubin 0.2 AST 37 H ALT 29 Alkaline Phosphatase 262 H Troponin I C-Reactive Protein NT-Pro-B Natriuret Pep 41876 H Total Protein 8.3 Albumin 4.8 Lipase 285 TSH Urine Color Urine Appearance Urine pH Ur Specific [place] Urine Protein Urine Glucose (UA) Urine Ketones Urine Blood Urine Nitrite Urine Bilirubin Urine Urobilinogen Ur Leukocyte Esterase Urine RBC Urine WBC Urine WBC Clumps Ur Squamous Epith Cells Urine Bacteria SARS-CoV-2 (PCR) Negative SARS-CoV-2 Influenza Type A (PCR) Negative PCR FLU A Influenza Type B (PCR) Negative PCR FLU B RSV (PCR) Negative PCR RSV POC Troponin I 0.16 H 03/31/22 03/31/22 03/31/22 14:49 14:49 16:20 WBC RBC Hgb Hct MCV MCH MCHC RDW Coeff of Estrella Plt Count Neut % (Auto) Lymph % (Auto) [place] % (Auto) Eos % (Auto) Baso % (Auto) Neut # (Auto) Lymph # (Auto) [place] # (Auto) Eos # (Auto) Baso # (Auto) Abs Immat Gran (auto) Imm/Tot Granulo (auto) INR APTT D-Dimer Quant (PE/DVT) VBG pH VBG pCO2 VBG pO2 VBG HCO3 Sodium Potassium Chloride Carbon Dioxide BUN Creatinine Estimated Creat Clear Estimated GFR Glucose Lactate Calcium Ionized Calcium Cade Magnesium Total Bilirubin Cancelled Direct Bilirubin Cancelled AST Cancelled ALT Cancelled Alkaline Phosphatase Cancelled Troponin I C-Reactive Protein NT-Pro-B Natriuret Pep Total Protein Cancelled Albumin Cancelled Lipase Cancelled TSH Urine Color Urine Appearance Urine pH Ur Specific [place] Urine Protein Urine Glucose (UA) Urine Ketones Urine Blood Urine Nitrite Urine Bilirubin Urine Urobilinogen Ur Leukocyte Esterase Urine RBC Urine WBC Urine WBC Clumps Ur Squamous Epith Cells Urine Bacteria SARS-CoV-2 (PCR) Influenza Type A (PCR) Influenza Type B (PCR) RSV (PCR) POC Troponin I 0.16 H 03/31/22 03/31/22 04/01/22 19:06 20:40 05:41 WBC 8.70 RBC 2.75 L Hgb 8.5 L Hct 26.3 L MCV 96 MCH 31 MCHC 32 RDW Coeff of Estrella Plt Count 206 Neut % (Auto) Lymph % (Auto) [place] % (Auto) Eos % (Auto) Baso % (Auto) Neut # (Auto) Lymph # (Auto) [place] # (Auto) Eos # (Auto) Baso # (Auto) Abs Immat Gran (auto) Imm/Tot Granulo (auto) INR APTT D-Dimer Quant (PE/DVT) VBG pH VBG pCO2 VBG pO2 VBG HCO3 Sodium 137 Potassium 4.8 Chloride 96 Carbon Dioxide 33 H BUN 52 H Creatinine 2.1 H Estimated Creat Clear 20.19 Estimated GFR 24 Glucose 89 Lactate Calcium 9.0 Ionized Calcium Cade Magnesium Total Bilirubin Direct Bilirubin AST ALT Alkaline Phosphatase Troponin I 0.26 H* C-Reactive Protein NT-Pro-B Natriuret Pep Total Protein Albumin Lipase TSH Urine Color Yellow Urine Appearance Clear Urine pH 7.0 Ur Specific [place] 1.015 Urine Protein Negative Urine Glucose (UA) Negative Urine Ketones Negative Urine Blood Negative Urine Nitrite Negative Urine Bilirubin Negative Urine Urobilinogen 0.2 Ur Leukocyte Esterase Negative Urine RBC 0-2 Urine WBC 0-2 Urine WBC Clumps None Ur Squamous Epith Cells None Urine Bacteria None SARS-CoV-2 (PCR) Influenza Type A (PCR) Influenza Type B (PCR) RSV (PCR) POC Troponin I 04/01/22 04/01/22 04/01/22 05:41 05:41 05:41 WBC RBC Hgb Hct MCV MCH MCHC RDW Coeff of Estrella Plt Count Neut % (Auto) Lymph % (Auto) [place] % (Auto) Eos % (Auto) Baso % (Auto) Neut # (Auto) Lymph # (Auto) [place] # (Auto) Eos # (Auto) Baso # (Auto) Abs Immat Gran (auto) Imm/Tot Granulo (auto) INR APTT D-Dimer Quant (PE/DVT) VBG pH 7.407 VBG pCO2 56 H VBG pO2 21.1 L VBG HCO3 35 H Sodium 138 Potassium 4.4 Chloride 96 Carbon Dioxide 36 H BUN 53 H Creatinine 2.1 H Estimated Creat Clear 20.19 Estimated GFR 24 Glucose 82 Lactate Calcium 9.0 Ionized Calcium Cade 1.14 Magnesium 2.2 Total Bilirubin Direct Bilirubin AST ALT Alkaline Phosphatase Troponin I 0.27 H* C-Reactive Protein 4.4 H NT-Pro-B Natriuret Pep 81038 H Total Protein Albumin 4.3 Lipase TSH 11.200 H Urine Color Urine Appearance Urine pH Ur Specific [place] Urine Protein Urine Glucose (UA) Urine Ketones Urine Blood Urine Nitrite Urine Bilirubin Urine Urobilinogen Ur Leukocyte Esterase Urine RBC Urine WBC Urine WBC Clumps Ur Squamous Epith Cells Urine Bacteria SARS-CoV-2 (PCR) Influenza Type A (PCR) Influenza Type B (PCR) RSV (PCR) POC Troponin I
[2022-04-01 10:57] LABS: Free T4 Free Thyroxine* 1.19 ng/dL (0.70-1.85)
--- NOTE | 2022-04-01 14:15 | RESP.RT ---
Pt evaluated. BBS with expiratory wheezing, bilaterally. Strong cough, was productive. Started aerobika, PT uses well, she has one at home that she uses. On 2L at home. Has been trying to wean oxygen, states she wants to get off of it. She does have an oximeter at home Based on what she tells me, and .what we are seeing here in the hospital, she does require 2L to maintain her SPO2 around 94%. [facility] follows her for sarcodosis every 2 years. She does have anemia. May want to consider a steroid burst, as I don't think her wheezing is cardiac. Placed bubbler on oxygen to help with her dry nose.
[2022-04-01 15:53] LABS: Troponin I* 0.23 ng/mL (0.01-0.04)
[2022-04-01] MEDS: predniSONE 20 MG TABLET 40 MG PO (16:57)
[2022-04-01] MEDS: cefTRIAXone 1 GM in 0.9 % SODIUM CHLORIDE Mini-bag 100 ML IVPB (17:35)
--- NOTE | 2022-04-01 18:32 | PC.NURSE ---
End of Shift: Patient pleasant and cooperative. Patient vitally stable, lung with expiratory wheezes anteriorly and posteriorly, and posterior course crackles. Bowel sounds WNL, IV intact. Patient with moist productive cough, coughing up moderate amount of yellow sputum, per patient. Patient 1 assist, walker, gb. Patient chronically on 2 L of 02 by NS with sats greater than 90%. Patient rates rib/chest pain with coughing at most 5/10, tylenol given x2 when due. Patient tolerating regular diet and had 1 BM. Patient painting intact and draining, clear/ straw.
[2022-04-01] MEDS: MELATONIN 3 MG TABLET PO (21:58)
[2022-04-02] VITALS (16 sets, daily range): BP systolic 97–135; BP diastolic 53–84; PULSE 60–83; RESP 18–24; TEMP 36.6–37.2; O2SAT 93–97
[2022-04-02] MEDS: SYNTHROID 125 MCG PO (06:43)
[2022-04-02] MEDS: OMEPRAZOLE 20 MG CAPSULE DR PO (06:44)
[2022-04-02] MEDS: ACETAMINOPHEN 325 MG TABLET PO ×3 (06:53→23:38)
--- NOTE | 2022-04-02 07:22 | PC.NURSE ---
[id number]: Patient pleasant and cooperative. O2>90% on 2 Lt NC. SOB at rest and w/exertion. Uses Aerobika independently. Stanley patent and draining large amounts of pink-tinged urine. C/o rib pain w/coughing. PRN Tylenol administered x1. Aromatherapy utilized for calming effects. Afebrile. SBA w/4ww.
[2022-04-02 07:55] LABS: Basophils Absolute Auto 0.02 K/uL (0.00-0.30); Basophils Percent Auto 0.3 % (0.0-3.0); Hematocrit 25.1 % (33.0-51.0); Lymphocytes Percent Auto 6.4 % (20-44); Mean Corpuscular HGB Conc 32 gm/dL (32-36); Mean Corpuscular Hemoglobin 30 pg (26-34); Mean Corpuscular Volume 95 fL (80-100); Monocytes Percent Auto 5.3 % (0.0-11.0); Platelet Count* 177 K/uL (140-440); RDW Coefficient of Variation % 18.5 % (11.5-15.5); Red Blood Count 2.64 m/uL (4.00-5.20)
[2022-04-02 08:07] LABS: Hemoglobin* 7.9 gm/dL (12.0-16.0); Slide Review Reflex No
--- NOTE | 2022-04-02 08:19 | PM.IMPN1 ---
Progress Note: A&P Assessment and plan (1) Dyspnea: Problem details: - multifactorial given diastolic CHF and anemia, history of pulmonary sarcoid. No evidence of infectious process contributing - improved after increased dose of diuretics, steroids. Expect further improvement after blood transfusion - continue supplemental oxygen (on 1-2 L per nasal cannula at home) Status: Acute (2) Diastolic congestive heart failure, NYHA class 3: Problem details: - during last outpatient cards appointment weighed 71.6 kg and this was considered volume up, feels best around 68.9 kg. - weight on admission 70.9 kg - home torsemide dose 60mg/day, doubled on admission to 60mg BID - continue to follow Is/Os, daily weights - repeat echocardiogram today - primary Cardiology contact is Emi Georges APRN at [phone] (message left 04/01) - repeat TTE obtained 04/01, results above Status: Acute (3) Ischemic cardiomyopathy: Problem details: - followed by [facility] - elevated troponin (peak at 0.27). Given renal function is likely not clearing - continue Eliquis, aspirin, metoprolol Status: Acute (4) History of mitral valve replacement: Problem details: - 09/28 at [facility]. Mitral valve replaced with 29 millimeter Saint Jovani epic tissue valve Status: Acute (5) Hx of tricuspid valve repair: Problem details: - known severe TR; valve repaired in 09/28 Status: Acute (6) Anemia in chronic kidney disease: Problem details: - Likely from chronic hypertension, chronic NSAID use. Baseline Creatinine 1.8 - historically iron resistant, follows with Hematology, initiated Aranesp injections 01/29. Goal hemoglobin > 8. Has a standing blood transfusion ordered at [facility] - typically receives 120 mg of IV Lasix after blood when transfused - patient received her morning dose of torsemide today; will give 80 mg of IV Lasix post transfusion and resume b.i.d. torsemide tomorrow - transfuse 1 unit PRBCs today Status: Acute (7) Atrial fibrillation: Problem details: - on Eliquis, rate control with Metoprolol Status: Acute (8) UTI (urinary tract infection): Problem details: - dx as outpatient 03/29, + E Coli. Treated with sulfa. Rocephin initiated 03/31. Query colonization. Status: Acute (9) Chronic kidney disease: Problem details: - sees Dr. Rascon of Nephrology as an outpatient Status: Acute (10) Hypertension: Problem details: - Quiescent, continue home meds Status: Acute (11) Postoperative hypothyroidism: Problem details: - Elevated TSH, T4 pending, continue home Synthroid Status: Acute (12) EDITH (obstructive sleep apnea): Status: Acute (13) Pulmonary sarcoidosis: Problem details: - unclear if contributing to dyspnea Status: Acute (14) Depression: Problem details: - on wellbutrin/lexapro as outpatient Status: Acute (15) Rheumatoid arthritis: Problem details: - on outpatient DMARD Avara, prednisone (5mg daily), hydroxychloroquine Status: Acute (16) Hematuria: Problem details: - reassuring CT abdomen pelvis, asymptomatic - resolved without treatment Status: Acute Plan - per above - apixaban for prophylaxis - plans to go home with when medically stable for discharge; this could be as early as tomorrow printing her response to blood transfusion, diuresis, and steroids - updated at bedside, questions answered Subjective Date Seen: 04/02/22 Interval history: No acute events overnight. Cristina feels mildly improved today from a breathing standpoint. Hgb this morning 7.9; Cristina is amenable to blood transfusion given parameters set by Nephrology and Hematology. Her painting was noted to be full of blood urine this morning, so CT ab/pelvis obtained, no acute findings noted. Of note, hematuria then resolved without treatment. TTE results 04/02: Final Impressions: 1. Normal left ventricular size, normal wall thickness, mildly reduced global systolic function, calculated EF of 44 %. 2. Right ventricular cavity size is severely enlarged, global systolic RV function is severely reduced. 3. RV base 5.2cm and mid 4.6cm. 4. Severely enlarged left atrium. 5. The aortic valve is sclerotic, no stenosis and mild regurgitation. 6. The mitral valve is S/P #29mm St Jovani Epic 10/07/2021; The bioprosthetic MVR is well-seated and stable., mild mitral regurgitation. 7. The peak and mean transmitral gradients are 23.4 and 6.1mmHg respectively (heart rate 64bpm). 8. Tricuspid valve is S/P TV repair with Annular Ring. 9. Severe tricuspid regurgitation. 10. The peak and mean gradients are 3.8 and 2.4 mmHg respectively. PISA EROA = 0.62cm2 and regurgitation volume 58ml Systolic flow reversal in the hepatic veins. 11. 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 12. Mildly increased estimated pulmonary pressures by tricuspid regurgitation velocity and right atrial pressure (32 mmHg plus RAP). 13. 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 14. No pericardial effusion. Exam Narrative: Exam Narrative: GEN: Alert and sitting comfortably in bed with improved dyspnea and tachypnea from admission HEENT: Normal external ears, EOMIs bilaterally CV: Rate controlled atrial fibrillation R: Wheezing from 04/01 has significantly improved, air movement adequate Ext: wwp, trace edema of ankles Skin: No concerning skin lesions or rashes on exposed skin Neuro: Nonfocal Psych: Appropriate Const: Vital Signs, click to edit/add: Vital Signs - 24 hr 04/01/22 10:03 04/01/22 11:00 04/01/22 14:13 Temperature 98.5 F Pulse Rate 72 Pulse Rate [Pulse Oximeter] 67 Respiratory Rate 22 16 Blood Pressure [Le ft Arm] 112/69 Blood Pressure [Ri ght Arm] Pulse Oximetry 96 Oxygen Delivery Me thod Nasal Cannula Nasal Cannula Oxygen Flow Rate 2 2 04/01/22 15:00 04/01/22 15:00 04/01/22 15:00 Temperature 98.1 F Pulse Rate 62 Pulse Rate [Pulse Oximeter] 72 72 Respiratory Rate 20 20 Blood Pressure [Le ft Arm] Blood Pressure [Ri ght Arm] 119/78 Pulse Oximetry 95 Oxygen Delivery Me thod Nasal Cannula Oxygen Flow Rate 2 04/01/22 18:00 04/01/22 19:00 04/01/22 23:00 Temperature 98.1 F Pulse Rate Pulse Rate [Pulse Oximeter] 69 63 Respiratory Rate 22 22 Blood Pressure [Le ft Arm] 112/69 Blood Pressure [Ri ght Arm] 110/65 Pulse Oximetry 96 95 95 Oxygen Delivery Me thod Nasal Cannula Nasal Cannula Oxygen Flow Rate 2 2.0 04/01/22 23:00 04/01/22 23:00 04/02/22 03:00 Temperature 97.8 F Pulse Rate 69 Pulse Rate [Pulse Oximeter] 69 60 Respiratory Rate 22 Blood Pressure [Le ft Arm] Blood Pressure [Ri ght Arm] 97/73 Pulse Oximetry 94 Oxygen Delivery Me thod Nasal Cannula Oxygen Flow Rate 2.0 04/02/22 07:42 Temperature Pulse Rate 72 Pulse Rate [Pulse Oximeter] Respiratory Rate Blood Pressure [Le ft Arm] Blood Pressure [Ri ght Arm] Pulse Oximetry Oxygen Delivery Me thod Oxygen Flow Rate Labs Labs: Laboratory Results - last 24 hr 04/01/22 04/01/22 04/02/22 05:41 15:08 06:14 WBC 5.80 RBC 2.64 L Hgb 7.9 L* Hct 25.1 L MCV 95 MCH 30 MCHC 32 RDW Coeff of Estrella 18.5 H Plt Count 177 Neut % (Auto) 88.0 H Lymph % (Auto) 6.4 L [place] % (Auto) 5.3 Eos % (Auto) 0.0 Baso % (Auto) 0.3 Neut # (Auto) 5.10 Lymph # (Auto) 0.40 L [place] # (Auto) 0.30 Eos # (Auto) 0.00 Baso # (Auto) 0.02 Abs Immat Gran (auto) 0.00 Imm/Tot Granulo (auto) 0.0 Troponin I 0.23 H* Free T4 1.19
[2022-04-02 08:24] LABS: Chloride* 96 mmol/L (96-114); Potassium* 4.3 mmol/L (3.6-5.1); Sodium* 138 mmol/L (135-149)
[2022-04-02 08:27] LABS: Blood Urea Nitrogen* 57 mg/dL (7-30); Carbon Dioxide* 32 mmol/L (20-32); Creatinine* 2.2 mg/dL (0.5-1.5); Est. Creatinine Clearance* 19.27; Estimated Glomerular Filt Rate 23 ml/min; Glucose* 128 mg/dL (60-115)
[2022-04-02 08:28] LABS: Calcium* 8.8 mg/dL (8.4-10.6)
[2022-04-02 08:34] LABS: NT Pro B Type NatriureticPept* 13700 PG/mL (0-450)
[2022-04-02 08:42] LABS: Troponin I* 0.18 ng/mL (0.01-0.04)
--- NOTE | 2022-04-02 08:51 | CRLHL7_ITS ---
For Patients: As a result of the Century Cures Act, medical imaging exams and procedure reports are released immediately into your electronic medical record. You may view this report before your referring provider. If you have questions, please contact your health care provider. INDICATION: Hematuria. Back pain. TECHNIQUE: Multiple axial images were obtained from the diaphragm to the symphysis pubis without contrast. Sagittal and coronal re-formatted images were obtained. COMPARISON: 11/14/2020. FINDINGS: There is a small right pleural effusion with atelectasis. There is atelectasis in the left lung base. The liver, spleen, pancreas, gallbladder and adrenal glands are of unremarkable nonenhanced CT appearance. There is no stone seen in the kidneys or ureters. There is a Stanley catheter in the urinary bladder. There is no evidence of a bowel obstruction. There is a large amount of stool in the colon. The abdominal aorta is normal in caliber. There are atherosclerotic calcification. There is no adenopathy. There is no free fluid in the abdomen or pelvis. There is scoliosis and degenerative changes in the spine. IMPRESSION: Small right full effusion with atelectasis. No kidney or ureteral stone. No hydronephrosis. Large amount of stool in the colon. Stanley catheter in the urinary bladder. Please note that all CT scans at this facility use dose modulation, iterative reconstruction, and/or weight-based dosing when appropriate to reduce radiation dose to as low as reasonably achievable. Dictated by Valentino Morin MD @ 04/02/2022 10:36:03 AM (Electronically Signed)
[2022-04-02] MEDS: TORSEMIDE 20 MG TABLET 60 MG PO (10:18)
[2022-04-02] MEDS: predniSONE 20 MG TABLET 40 MG PO (10:18)
[2022-04-02] MEDS: predniSONE 5 MG TABLET PO (10:19)
[2022-04-02] MEDS: buPROPion XL 150 MG TABLET PO (10:20)
[2022-04-02] MEDS: HYDROXYCHLOROQUINE 200 MG TABLET 400 MG PO (10:20)
[2022-04-02] MEDS: LOPERAMIDE HCL 2 MG CAPSULE 4 MG PO (10:21)
[2022-04-02] MEDS: ASPIRIN 81 MG TABLET EC PO (10:21)
[2022-04-02] MEDS: METOPROLOL SUCCINATE (XL) 25 MG TAB PO ×2 (10:21→21:00)
[2022-04-02] MEDS: POTASSIUM CHLORIDE 10 MEQ CAPSULE ER 20 MEQ PO (10:22)
[2022-04-02] MEDS: CITALOPRAM HYDROBROMIDE 20 MG TABLET PO (10:22)
[2022-04-02] MEDS: APIXABAN 5 MG TABLET PO ×2 (10:30→21:00)
[2022-04-02] MEDS: SODIUM CHLORIDE 0.9 % (FLUSH) 10 ML SYRINGE 5 ML IVF ×3 (10:31→21:01)
[2022-04-02] MEDS: OXYCODONE 5 MG TABLET PO ×2 (10:52→23:39)
[2022-04-02] MEDS: 0.9 % SODIUM CHLORIDE 250 ml IV ×2 (11:10→17:59)
[2022-04-02] MEDS: FUROSEMIDE 10 MG/ML inj 60 MG IVP (14:13)
--- NOTE | 2022-04-02 15:21 | PC.NURSE ---
repairer typewriter verified blood administration with EMANUEL Hall.
--- NOTE | 2022-04-02 15:31 | PC.NURSE ---
Pt noted to have dark marie urine in her painting catheter this am. Critical trop 0.[address] Valdes on am rounds. Hgb 7.9, pt teaching r/to sx of transfusion rxn and permit for transfusion signed. One unit of 0 positive prbc infused per protocol w/o any adverse reactions noted. Charted on TAR and on paper d/to system error. Blood verified with Ramon Polanco RN. Pt has an intermittent cough with thick tenacious yellow sputum. Report to Bela CASTELLANOS for evening shift. Oxygen continues on 2L/nc.
[2022-04-02] MEDS: cefTRIAXone 1 GM in 0.9 % SODIUM CHLORIDE Mini-bag 100 ML IVPB (17:58)
--- NOTE | 2022-04-02 22:36 | PC.NURSE ---
Shift note: SOB with exertion, sats 92-95% on 2L NC
[2022-04-02] MEDS: MELATONIN 3 MG TABLET PO (23:39)
[2022-04-03] MEDS: ONDANSETRON ODT 4 MG TAB PO (02:50)
[2022-04-03 03:00] VITALS: BP 135/77; PULSE 67; RESP 20; TEMP 36.8; O2SAT 96
[2022-04-03] MEDS: OXYCODONE 5 MG TABLET PO (03:05)
--- NOTE | 2022-04-03 05:53 | PC.NURSE ---
[id number] Pt unable to sleep until approx 0430, prn oxy administered for tightness like a tight bra in diaphragm area, denies pain or difficulty with breathing, denies chest pain. Pt able to sleep after prn administration. painting patent and draining
[2022-04-03] MEDS: OMEPRAZOLE 20 MG CAPSULE DR PO (06:24)
[2022-04-03] MEDS: SYNTHROID 125 MCG PO (06:24)
[2022-04-03 08:00] VITALS: BP 139/78; PULSE 72; RESP 22; TEMP 36.6; O2SAT 97
[2022-04-03 08:04] LABS: HCO3 VBG 34 mmol/L (21-28); PCO2 VBG 50 mmHG (40-50); PO2 VBG 24.8 mmHG (25-47); pH VBG 7.446 (7.32-7.43)
[2022-04-03 08:08] LABS: Basophils Absolute Auto 0.01 K/uL (0.00-0.30); Basophils Percent Auto 0.1 % (0.0-3.0); Eosinophils Absolute Auto 0.07 K/uL (0.00-0.50); Eosinophils Percent Auto 0.9 % (0.0-7.0); Hematocrit 29.3 % (33.0-51.0); Hemoglobin* 9.3 gm/dL (12.0-16.0); Immature Granulocytes Abs Auto 0.01 K/uL (0.00-0.30); Immature Granulocytes Pct Auto 0.1 %; Lymphocytes Percent Auto 11.6 % (20-44); Mean Corpuscular HGB Conc 32 gm/dL (32-36); Mean Corpuscular Hemoglobin 30 pg (26-34); Mean Corpuscular Volume 94 fL (80-100); Monocytes Percent Auto 10.7 % (0.0-11.0); Neutrophils Percent Auto 76.6 % (42.0-72.0); Platelet Count* 194 K/uL (140-440); RDW Coefficient of Variation % 19.1 % (11.5-15.5); Red Blood Count 3.13 m/uL (4.00-5.20); White Blood Count* 8.04 K/uL (4.50-11.00)
[2022-04-03 08:12] LABS: Slide Review Reflex No
[2022-04-03 08:20] LABS: Chloride* 97 mmol/L (96-114); Potassium* 4.2 mmol/L (3.6-5.1); Sodium* 138 mmol/L (135-149)
[2022-04-03 08:22] LABS: Creatinine* 2.1 mg/dL (0.5-1.5); Est. Creatinine Clearance* 20.19; Estimated Glomerular Filt Rate 24 ml/min
[2022-04-03 08:23] LABS: Blood Urea Nitrogen* 63 mg/dL (7-30); Calcium* 9.4 mg/dL (8.4-10.6); Carbon Dioxide* 32 mmol/L (20-32); Glucose* 94 mg/dL (60-115)
[2022-04-03 08:46] VITALS: PULSE 72
[2022-04-03] MEDS: HYDROXYCHLOROQUINE 200 MG TABLET 400 MG PO (08:55)
[2022-04-03] MEDS: POTASSIUM CHLORIDE 10 MEQ CAPSULE ER 20 MEQ PO (08:55)
[2022-04-03] MEDS: LOPERAMIDE HCL 2 MG CAPSULE 4 MG PO (08:56)
[2022-04-03] MEDS: METOPROLOL SUCCINATE (XL) 25 MG TAB PO (08:56)
[2022-04-03] MEDS: TORSEMIDE 20 MG TABLET 60 MG PO (08:57)
[2022-04-03] MEDS: predniSONE 20 MG TABLET 40 MG PO (08:58)
[2022-04-03] MEDS: predniSONE 5 MG TABLET PO (08:58)
[2022-04-03] MEDS: APIXABAN 5 MG TABLET PO (08:58)
[2022-04-03] MEDS: buPROPion XL 150 MG TABLET PO (08:59)
[2022-04-03] MEDS: SODIUM CHLORIDE 0.9 % (FLUSH) 10 ML SYRINGE 5 ML IVF (08:59)
[2022-04-03] MEDS: ASPIRIN 81 MG TABLET EC PO (08:59)
[2022-04-03] MEDS: CITALOPRAM HYDROBROMIDE 20 MG TABLET PO (08:59)
--- NOTE | 2022-04-03 11:18 | P.DS_ITS ---
DS: Providers Provider Date Seen: 04/03/22 Date of admission: 03/31/22 17:43 Primary care physician: Alcides Gonzalez MD Admitting Clinician: Giselle Mclaughlin MD Consults: OT, PT, RT Attending Physician on discharge: Giselle Mclaughlin MD Date of Discharge: 04/03/22 DS: Diagnosis Discharge Diagnosis (1) Dyspnea: Status: Acute Problem details: - multifactorial given diastolic CHF and anemia, history of pulmonary sarcoid. No evidence of infectious process contributing - improved after increased dose of diuretics, steroids, and 1U PRBCs on 04/02 - remained on supplemental oxygen (on 1-2 L per nasal cannula at home) (2) Diastolic congestive heart failure, NYHA class 3: Status: Acute Problem details: - during last outpatient cards appointment weighed 71.6 kg and this was c onsidered volume up, feels best around 68.9 kg - weight on admission 70.9 kg, discharge weight 69.9Kg - home torsemide dose 60mg/day, doubled on admission to 60mg BID - primary Cardiology contact is Emi Georges APRN at [phone]. (3) Hematuria: Status: Acute Problem details: - reassuring CT abdomen pelvis, asymptomatic - resolved without treatment (4) UTI (urinary tract infection): Status: Acute Problem details: - dx as outpatient 03/29, + E Coli. Treated with sulfa. Rocephin initiated 03/31, treated x3d, no abx on discharge needed. Query colonization. (5) Hx of tricuspid valve repair: Status: Acute Problem details: - known severe TR; valve repaired in 09/28 - severe TR noted again on 04/02 TTE (6) Ischemic cardiomyopathy: Status: Acute Problem details: - followed by [facility] - elevated troponin (peak at 0.27). Given renal function is likely not clearing - continue Eliquis, aspirin, metoprolol (7) Anemia in chronic kidney disease: Status: Acute Problem details: - Likely from chronic hypertension, chronic NSAID use. Baseline Creatinine 1.8 - historically iron resistant, follows with Hematology, initiated Aranesp injections 01/29. Goal hemoglobin > 8. Has a standing blood transfusion ordered at [facility] - typically receives 120 mg of IV Lasix after blood when transfused - transfused 1 unit PRBCs 04/02 (8) Atrial fibrillation: Status: Acute Problem details: - on Eliquis, rate control with Metoprolol DS: Summary Hospital Course Hospital Course: Very pleasant 77-year-old female admitted to the hospital on 03/31/2022 with dyspnea, multifactorial. Patient has known diastolic heart failure, underwent a mitral valve replacement and tricuspid valve repair earlier this year at the [facility] and follows with the cardiology team regularly. We doubled her home dose of torsemide and she diuresed well. Of note, patient had a urinary catheter placed for diuresis and was found to have significant hematuria on hospital day 2. CT abdomen pelvis obtained and no concerning findings were noted. Hematuria self resolved. She had recently been treated for UTI, E coli + (treated with Bactrim as an outpatient prior to hospitalization, received 3 days of ceftriaxone inpatient), query colonization. She was also found to be wheezing and was seen by respiratory therapy during stay, treated with steroids and her wheezing improved, she also felt that her breathing was easier during prednisone burst. Patient also has chronic history of anemia; followed by both Nephrology and Hematology as an outpatient. Her hemoglobin did drop to below 8, and she was transfused 1 unit of PRBCs on 04/02/2022. On hospital day 3, patient felt that she was optimized for discharge home with close follow-up. She will see her PCP next week, and I discussed her case with [facility], who contact her for a follow-up appointment. TTE obtained 04/02 with results below. TTE results 04/02: Final Impressions: ?1. Normal left ventricular size, normal wall thickness, mildly reduced global systolic function, calculated EF of 44 %. ?2. Right ventricular cavity size is severely enlarged, global systolic RV function is severely reduced. ?3. RV base 5.2cm and mid 4.6cm. ?4. Severely enlarged left atrium. ?5. The aortic valve is sclerotic, no stenosis and mild regurgitation. ?6. The mitral valve is S/P #29mm [facility] Epic 10/07/2021; The bioprosthetic MVR is well-seated and stable., mild mitral regurgitation. ?7. The peak and mean transmitral gradients are 23.4 and 6.1mmHg respectively (heart rate 64bpm). ?8. Tricuspid valve is S/P TV repair with Annular Ring. ?9. Severe tricuspid regurgitation. 10. The peak and mean gradients are 3.8 and 2.4 mmHg respectively. ? ? PISA EROA = 0.62cm2 and regurgitation volume 58ml ? ? Systolic flow reversal in the hepatic veins. 11. 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 12. Mildly increased estimated pulmonary pressures by tricuspid regurgitation velocity and right atrial pressure (32 mmHg plus RAP). 13. 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 14. No pericardial effusion. Status at Discharge Functional status at discharge: uses cane/walker Overall status at discharge: patient is progressing back to baseline Time Spent with Patient Time attestation: Total time spent providing and/or coordinating discharge services: Time spent: Greater than 30 minutes Specific discharge activities: updating cardiology provider at [facility], medication reconciliation, P2P with insurance company Exam Narrative: Exam Narrative: GEN: Alert HEENT: Normal external ears, EOMIs bilaterally CV: Rate controlled atrial fibrillation with systolic murmur noted R: LCTA bilaterally without wheezing that was noted on admission Ext: wwp, no edema Skin: No concerning skin lesions or rashes on exposed skin Neuro: Nonfocal Psych: Appropriate Const: Vital Signs, click to edit/add: Vital Signs - 24 hr 04/02/22 11:29 04/02/22 11:45 04/02/22 13:19 Temperature 98.4 F 97.9 F 97.9 F Pulse Rate 75 75 Pulse Rate [Pulse Oximeter] Respiratory Rate 20 20 20 Blood Pressure 133/78 135/70 135/70 Blood Pressure [Ri ght Arm] Pulse Oximetry 97 97 Oxygen Delivery Me thod Oxygen Flow Rate 04/02/22 11:45 04/02/22 12:29 04/02/22 13:26 Temperature 98.1 F 98.9 F Pulse Rate 68 71 74 Pulse Rate [Pulse Oximeter] Respiratory Rate 20 20 20 Blood Pressure 135/70 131/84 110/66 Blood Pressure [Ri ght Arm] Pulse Oximetry 97 97 Oxygen Delivery Me thod Oxygen Flow Rate 04/02/22 11:30 04/02/22 14:00 04/02/22 13:59 Temperature 98.3 F 98.1 F Pulse Rate 72 Pulse Rate [Pulse Oximeter] 68 Respiratory Rate 20 20 Blood Pressure 116/71 Blood Pressure [Ri ght Arm] 133/78 Pulse Oximetry 97 93 Oxygen Delivery Me thod Nasal Cannula Nasal Cannula Oxygen Flow Rate 2 2 04/02/22 15:00 04/02/22 15:00 04/02/22 15:00 Temperature 97.9 F Pulse Rate 83 Pulse Rate [Pulse Oximeter] 83 83 Respiratory Rate 24 22 Blood Pressure Blood Pressure [[facility]] 119/77 Pulse Oximetry 95 Oxygen Delivery Me thod Nasal Cannula Oxygen Flow Rate 2 04/02/22 18:00 04/02/22 19:00 04/02/22 23:00 Temperature 98.2 F Pulse Rate Pulse Rate [Pulse Oximeter] 72 72 Respiratory Rate 20 18 Blood Pressure Blood Pressure [[facility] Arm] 117/69 Pulse Oximetry 95 95 Oxygen Delivery Me thod Nasal Cannula Oxygen Flow Rate 2 04/02/22 23:00 04/02/22 23:48 04/03/22 03:00 Temperature 98.3 F 98.3 F Pulse Rate 70 Pulse Rate [Pulse Oximeter] 74 67 Respiratory Rate 18 20 Blood Pressure Blood Pressure [[facility] Arm] 134/80 135/77 Pulse Oximetry 96 96 Oxygen Delivery Me thod Nasal Cannula Nasal Cannula Oxygen Flow Rate 2 2 DS: Data Data Completed and Pending Labs on day of discharge: Labs from last 24 hours 04/03/22 04/03/22 04/03/22 07:56 07:56 07:56 WBC 8.04 RBC 3.13 L Hgb 9.3 L Hct 29.3 L MCV 94 MCH 30 MCHC 32 RDW Coeff of Estrella 19.1 H Plt Count 194 Neut % (Auto) 76.6 H Lymph % (Auto) 11.6 L Cook % (Auto) 10.7 Eos % (Auto) 0.9 Baso % (Auto) 0.1 Neut # (Auto) 6.20 Lymph # (Auto) 0.90 Cook # (Auto) 0.90 Eos # (Auto) 0.07 Baso # (Auto) 0.01 Abs Immat Gran (auto) 0.01 Imm/Tot Granulo (auto) 0.1 VBG pH 7.446 H VBG pCO2 50 VBG pO2 24.8 L VBG HCO3 34 H Sodium 138 Potassium 4.2 Chloride 97 Carbon Dioxide 32 BUN 63 H Creatinine 2.1 H Estimated Creat Clear 20.19 Estimated GFR 24 Glucose 94 Calcium 9.4 Blood Type Antibody Screen Crossmatch (G) 04/02/22 08:11 WBC RBC Hgb Hct MCV MCH MCHC RDW Coeff of Estrella Plt Count Neut % (Auto) Lymph % (Auto) Cook % (Auto) Eos % (Auto) Baso % (Auto) Neut # (Auto) Lymph # (Auto) Cook # (Auto) Eos # (Auto) Baso # (Auto) Abs Immat Gran (auto) Imm/Tot Granulo (auto) VBG pH VBG pCO2 VBG pO2 VBG HCO3 Sodium Potassium Chloride Carbon Dioxide BUN Creatinine Estimated Creat Clear Estimated GFR Glucose Calcium Blood Type O Positive Antibody Screen NEGATIVE Crossmatch ([facility]) See Detail Discharge Plan Discharge Disposition: Home, Self-Care Date of Admission: 03/31/22 17:43 Attending Provider on Discharge: Marylou Valdes Primary Care Provider: Alcides Gonzalez Condition: Improved Anticipated Discharge Date/Time: 04/03/22 15:00 Discharge Medications: New prednisone 20 mg Tablet 40 mg PO DAILYWM 3 Days Qty: 6 0RF Rx Instructions: 3 more days of 40 + the 5mg taken daily for RA. After completion of 3 days, just take the 5mg daily for RA Continued apixaban 5 mg tablet 5 mg PO BID hydroxychloroquine 200 mg tablet 400 mg PO DAILY ferrous sulfate 325 mg (65 mg iron) tablet 650 mg PO DAILY prednisone 5 mg tablet 5 mg PO DAILY loperamide 2 mg capsule 4 mg PO DAILY ascorbic acid (vitamin C) 1,000 mg tablet 1,000 mg PO DAILY bupropion HCl 150 mg tablet extended release 24 hr 150 mg PO DAILY omeprazole 20 mg capsule,delayed release(DR/EC) 20 mg PO DAILY levothyroxine 125 mcg tablet 125 mcg PO DAILY Label Comments: takes Synthroid. Levothyroxine causes significant rash citalopram 20 mg tablet 20 mg PO DAILY potassium chloride 20 mEq tablet,ER particles/crystals 20 meq PO DAILY metoprolol succinate 50 mg tablet extended release 24 hr 25 mg PO BID aspirin [Adult Low Dose Aspirin] 81 mg tablet,delayed release (DR/EC) 81 mg PO DAILY torsemide 20 mg tablet 60 mg PO DAILY Qty: 270 1RF Rx Instructions: take 3 tabs every morning, take an extra 1-2tabs at 2pm if weight up or dyspneic Discontinued sulfamethoxazole-trimethoprim [Bactrim DS] 800-160 mg tablet 1 tab PO BID Qty: 10 0RF Discharge Orders: Discharge Order (Routine); Ordered 04/03/22 Ordered By: Marylou Valdes Patient Education: Prednisone (By mouth), Heart Failure (DC) Additional Instructions: Finish your course of 40mg prednisone (3 more days), then go back to just 5mg daily for your RA. Take your 60mg of Torsemide every morning, then an additional 20-40mg at 2pm if your weight is up or you're having trouble breathing. I've left [facility] a message to check in with you post-hospital stay - see Dr. Gonzalez next week as well. Activity Level: No strenuous activity Discharge Diet: Regular Follow Up Appointments: Alcides Gonzalez MD [Primary Care Provider] - 04/08/22 10:15 am Forms: [employer] Info Instructions
[2022-04-03 14:00] VITALS: RESP 20; O2SAT 97
--- NOTE | 2022-04-03 15:06 | PC.NURSE ---
shift note: pt up 1/walker. pt needing cont O2 @ 2L pnc. LS dim throughout. No edema bilat. IV dc'd intact. tele monitor at [facility]. Pt denies c.p or pressure. Reviewed dc instructions and personal belongings. copies of dc and belongings sent with pt at tn. Home medication returned to pt at tn.
== END 2022-04-03 15:00 | disposition home or self-care (01) | DRG 291 ==
LOC: ED 14:24 → MEDSURG 16:20
PROVIDERS: Family Medicine; Admitting Provider Family Medicine; Emergency Provider Family Medicine; PCP Family Medicine; Visit Provider Family Medicine
DX: I13.0 Hypertensive heart and chronic kidney disease with heart failure and stage 1 through stage 4 chronic kidney disease, or unspecified chronic kidney disease (principal); I50.33 Acute on chronic diastolic (congestive) heart failure; I48.21 Permanent atrial fibrillation; N18.4 Chronic kidney disease, stage 4 (severe); N39.0 Urinary tract infection, site not specified; D86.0 Sarcoidosis of lung; J44.9 Chronic obstructive pulmonary disease, unspecified; G47.33 Obstructive sleep apnea (adult) (pediatric); I25.5 Ischemic cardiomyopathy; D63.1 Anemia in chronic kidney disease; G71.00 Muscular dystrophy, unspecified; S80.11XA Contusion of right lower leg, initial encounter; Z87.891 Personal history of nicotine dependence; I08.1 Rheumatic disorders of both mitral and tricuspid valves; Z79.01 Long term (current) use of anticoagulants; Z95.2 Presence of prosthetic heart valve; M06.9 Rheumatoid arthritis, unspecified; Z79.52 Long term (current) use of systemic steroids; K52.9 Noninfective gastroenteritis and colitis, unspecified; E89.0 Postprocedural hypothyroidism; F32.A Depression, unspecified; K21.9 Gastro-esophageal reflux disease without esophagitis; G47.61 Periodic limb movement disorder; E55.9 Vitamin D deficiency, unspecified; Z96.652 Presence of left artificial knee joint; B96.20 Unspecified Escherichia coli [E. coli] as the cause of diseases classified elsewhere
CPT/HCPCS: 36415; 36430; 71046; 74176; 80048; 80076; 81001; 82040; 82330; 82803; 83605; 83690; 83735; 83880; 84439; 84443; 84484; 85025; 85027; 85379; 85610; 85730; 86140; 86850; 86900; 86901; 86922; 87086; 87502; 87634; 87635; 93005; 93306; 94640; 94664; 94761; 97116; 97161; 97166; 97530; 97535; 99284; 99285; A9270; C9113; J0696; J1940; J7050; J7512; P9016

== ENCOUNTER 2022-05-29 09:55 | Outpatient (CLI) | payer OTHER, SELFPAY ==
--- NOTE | 2022-05-29 11:20 | W.ANESCHARGE ---
Anesthesia Charges Start Date/Time Anesthesia Start Date: 05/29/22 Anesthesia Start Time: 10:49 Stop Date/Time Anesthesia Stop Date: 05/29/22 Anesthesia Stop Time: 11:15 Summary Emergency: No Extremes of Age: Over 70-CPT 50253
--- NOTE | 2022-05-29 11:42 | W.ANESCHARGE ---
Anesthesia Charges Start Date/Time Anesthesia Start Date: 05/29/22 Anesthesia Start Time: 10:49 Stop Date/Time Anesthesia Stop Date: 05/29/22 Anesthesia Stop Time: 11:15 Summary Emergency: No Extremes of Age: Over 70-CPT 82246
== END 2022-05-29 09:56 | disposition home or self-care (01) ==
PROVIDERS: PCP Family Medicine; Visit Provider Internal Medicine
DX: R10.84 Generalized abdominal pain (principal); K64.9 Unspecified hemorrhoids
CPT/HCPCS: 00811; 45380; 88305; 99100; J2704

== ENCOUNTER 2022-07-02 14:00 | Outpatient (RCR) | payer OTHER, SELFPAY ==
[2022-01-13 10:45] LABS: Basophils Absolute Auto 0.05 K/uL (0.00-0.30); Basophils Percent Auto 0.5 % (0.0-3.0); Eosinophils Absolute Auto 0.63 K/uL (0.00-0.50); Eosinophils Percent Auto 5.9 % (0.0-7.0); Hematocrit 26.8 % (33.0-51.0); Hemoglobin* 8.6 gm/dL (12.0-16.0); Immature Granulocytes Abs Auto 0.02 K/uL (0.00-0.30); Lymphocytes Percent Auto 9.8 % (20-44); Mean Corpuscular HGB Conc 32 gm/dL (32-36); Mean Corpuscular Hemoglobin 31 pg (26-34); Mean Corpuscular Volume 95 fL (80-100); Monocytes Percent Auto 10.7 % (0.0-11.0); Neutrophils Percent Auto 72.9 % (42.0-72.0); Platelet Count* 219 K/uL (140-440); RDW Coefficient of Variation % 18.6 % (11.5-15.5); Red Blood Count 2.82 m/uL (4.00-5.20); White Blood Count* 10.75 K/uL (4.50-11.00)
[2022-01-13 11:01] LABS: Slide Review Reflex No
[2022-01-13 11:03] LABS: Albumin* 4.5 g/dL (3.3-5.0)
[2022-01-13 11:04] LABS: Chloride* 95 mmol/L (96-114); Potassium* 4.2 mmol/L (3.6-5.1); Sodium* 138 mmol/L (135-149)
[2022-01-13 11:06] LABS: Carbon Dioxide* 33 mmol/L (20-32); Creatinine* 2.2 mg/dL (0.5-1.5); Estimated Glomerular Filt Rate 23 ml/min
[2022-01-13 11:07] LABS: Alanine Aminotransferase* 19 U/L (4-35); Alkaline Phosphatase* 210 U/L (40-150); Aspartate Amino Transferase* 35 U/L (12-35); Blood Urea Nitrogen* 49 mg/dL (7-30); Calcium* 9.2 mg/dL (8.4-10.6); Glucose* 107 mg/dL (60-115); Total Protein* 7.8 g/dL (6.0-8.3)
[2022-01-13 11:56] LABS: Vitamin B12* 637 pg/mL (243-894)
--- NOTE | 2022-01-14 12:47 | URNOTE ---
Received request for prior auth for Aranesp ([id number]). Per [facility] Clinical Pharmacy Review, this was DENIED. They cover this drug when criteria are met. The unmet criteria are: must have had a poor response to Retacrit or Procrit (epoetin tu) therapy for at least two consecutive months with appropriate dose adjustment(step therapy requirement).
[2022-01-14 15:15] LABS: Folate, Serum > 22.3 ng/mL (>=5.9)
--- NOTE | 2022-01-15 12:47 | ONC.NURNOTE ---
Insurance did not approve Aranesp. Pt aware. Debo aware and will address next week. Pt verbalized understanding of plan of care.
--- NOTE | 2022-01-16 14:11 | ONC.NURNOTE ---
Patient brought in stool for occult blood test. Results-negative.
--- NOTE | 2022-01-19 07:58 | ONC.NURNOTE ---
Addendum entered by Tiffanie Koch RN 01/19/22 09:21: Hematology note and labs faxed to [facility] at #[phone]. Original Note: Late Entry-01/16/22- Pt called inquiring about lab work and if pt should have a blood transfusion with a hemoglobin of 8.6. Pt states she feels shaky, weak. Labs reviewed by Dalia Vaughan APRN and pt scheduled to come in on 01/20/22 for repeat CBC and discussion to see if a blood transfusion is needed. Pt verbalized understanding of plan of care.
[2022-01-20 09:58] LABS: Basophils Absolute Auto 0.07 K/uL (0.00-0.30); Basophils Percent Auto 0.7 % (0.0-3.0); Eosinophils Percent Auto 7.7 % (0.0-7.0); Hematocrit 25.7 % (33.0-51.0); Hemoglobin* 8.4 gm/dL (12.0-16.0); Immature Granulocytes Abs Auto 0.02 K/uL (0.00-0.30); Lymphocytes Percent Auto 12.2 % (20-44); Mean Corpuscular HGB Conc 33 gm/dL (32-36); Mean Corpuscular Hemoglobin 31 pg (26-34); Mean Corpuscular Volume 95 fL (80-100); Neutrophils Absolute Auto 7.07 K/uL (1.7-7.0); Neutrophils Percent Auto 69.2 % (42.0-72.0); Platelet Count* 224 K/uL (140-440); RDW Coefficient of Variation % 18.7 % (11.5-15.5); White Blood Count* 10.22 K/uL (4.50-11.00)
[2022-01-20 10:14] LABS: Slide Review Reflex No
[2022-01-20 10:30] VITALS: BP 109/57; PULSE 65; RESP 24; TEMP 36.6; O2SAT 100
--- NOTE | 2022-01-20 10:56 | ONC.NURNOTE ---
Pt here today for Hgb recheck; continuing to feel tired. Hgb 8.4; 8.6 last week. VSS. Pt dc'd amb per jeferson; will review labs and plan with Dr. Edmondson when in clinic tomorrow.
--- NOTE | 2022-01-23 15:02 | URNOTE ---
Received request for prior auth for Procrit([id number]). Per Jose Grayson at [facility], this has been approved, unlimited units, based on medical necessity and FDA guidelines. 01/22/2022-07/21/2022. Auth # [id number]
[2022-01-29 14:19] LABS: Hematocrit 24.4 % (33.0-51.0); Hemoglobin* 8.1 gm/dL (12.0-16.0); Mean Corpuscular HGB Conc 33 gm/dL (32-36); Mean Corpuscular Hemoglobin 31 pg (26-34); Mean Corpuscular Volume 94 fL (80-100); Platelet Count* 226 K/uL (140-440); White Blood Count* 9.49 K/uL (4.50-11.00)
[2022-01-29 14:24] LABS: Slide Review Reflex No
[2022-01-29] MEDS: EPOETIN ALFA 20,000 UNIT/ML VIAL 10000 UNIT SUBCUT (15:03)
[2022-02-12 13:58] LABS: Hematocrit 24.7 % (33.0-51.0); Mean Corpuscular HGB Conc 32 gm/dL (32-36); Mean Corpuscular Hemoglobin 31 pg (26-34); Mean Corpuscular Volume 95 fL (80-100); Platelet Count* 241 K/uL (140-440); White Blood Count* 9.68 K/uL (4.50-11.00)
[2022-02-12 14:02] LABS: Slide Review Reflex No
[2022-02-12 14:20] VITALS: BP 115/74; PULSE 74; RESP 16; TEMP 36.5; O2SAT 97
[2022-02-12] MEDS: EPOETIN ALFA 20,000 UNIT/ML VIAL 10000 UNIT SUBCUT (14:39)
[2022-02-25 13:12] LABS: Hemoglobin* 8.4 gm/dL (12.0-16.0); Mean Corpuscular HGB Conc 32 gm/dL (32-36); Mean Corpuscular Hemoglobin 31 pg (26-34); Mean Corpuscular Volume 96 fL (80-100); Platelet Count* 211 K/uL (140-440); Red Blood Count 2.71 m/uL (4.00-5.20); White Blood Count* 8.44 K/uL (4.50-11.00)
[2022-02-25 13:21] LABS: Slide Review Reflex No
[2022-02-25 13:32] VITALS: BP 103/64; PULSE 72; RESP 25; TEMP 36.9; O2SAT 98
[2022-02-25] MEDS: EPOETIN ALFA 20,000 UNIT/ML VIAL 10000 UNIT SUBCUT (13:38)
[2022-03-12 14:28] LABS: Basophils Absolute Auto 0.04 K/uL (0.00-0.30); Basophils Percent Auto 0.6 % (0.0-3.0); Eosinophils Absolute Auto 0.35 K/uL (0.00-0.50); Hematocrit 27.1 % (33.0-51.0); Hemoglobin* 8.7 gm/dL (12.0-16.0); Immature Granulocytes Abs Auto 0.01 K/uL (0.00-0.30); Immature Granulocytes Pct Auto 0.1 %; Lymphocytes Percent Auto 7.5 % (20-44); Mean Corpuscular HGB Conc 32 gm/dL (32-36); Mean Corpuscular Hemoglobin 31 pg (26-34); Mean Corpuscular Volume 96 fL (80-100); Monocytes Percent Auto 6.8 % (0.0-11.0); Platelet Count* 208 K/uL (140-440); RDW Coefficient of Variation % 18.4 % (11.5-15.5); Red Blood Count 2.83 m/uL (4.00-5.20); White Blood Count* 7.07 K/uL (4.50-11.00)
[2022-03-12 14:31] LABS: Slide Review Reflex No
[2022-03-12 14:38] VITALS: BP 111/63; PULSE 67; RESP 16; TEMP 36.8; O2SAT 96
[2022-03-12] MEDS: EPOETIN ALFA 20,000 UNIT/ML VIAL 10000 UNIT SUBCUT (15:04)
[2022-03-26 14:14] LABS: Basophils Percent Auto 0.9 % (0.0-3.0); Eosinophils Percent Auto 8.3 % (0.0-7.0); Hematocrit 28.2 % (33.0-51.0); Hemoglobin* 8.9 gm/dL (12.0-16.0); Immature Granulocytes Pct Auto 0.2 %; Lymphocytes Percent Auto 7.1 % (20-44); Mean Corpuscular HGB Conc 32 gm/dL (32-36); Mean Corpuscular Hemoglobin 31 pg (26-34); Mean Corpuscular Volume 97 fL (80-100); Monocytes Percent Auto 7.3 % (0.0-11.0); Neutrophils Percent Auto 76.2 % (42.0-72.0); Platelet Count* 227 K/uL (140-440); RDW Coefficient of Variation % 18.5 % (11.5-15.5); Red Blood Count 2.92 m/uL (4.00-5.20); White Blood Count* 11.37 K/uL (4.50-11.00)
[2022-03-26 14:18] LABS: Slide Review Reflex No
[2022-03-26 14:30] VITALS: BP 120/70; PULSE 60; RESP 16; TEMP 36.1; O2SAT 97
[2022-03-26] MEDS: EPOETIN ALFA 20,000 UNIT/ML VIAL 10000 UNIT SUBCUT (14:49)
[2022-04-09 14:36] LABS: Basophils Absolute Auto 0.03 K/uL (0.00-0.30); Basophils Percent Auto 0.3 % (0.0-3.0); Eosinophils Absolute Auto 0.44 K/uL (0.00-0.50); Eosinophils Percent Auto 4.6 % (0.0-7.0); Hematocrit 28.7 % (33.0-51.0); Hemoglobin* 9.1 gm/dL (12.0-16.0); Immature Granulocytes Abs Auto 0.05 K/uL (0.00-0.30); Immature Granulocytes Pct Auto 0.5 %; Mean Corpuscular HGB Conc 32 gm/dL (32-36); Mean Corpuscular Hemoglobin 30 pg (26-34); Mean Corpuscular Volume 95 fL (80-100); Monocytes Percent Auto 9.5 % (0.0-11.0); Neutrophils Percent Auto 80.1 % (42.0-72.0); Platelet Count* 196 K/uL (140-440); Red Blood Count 3.02 m/uL (4.00-5.20); White Blood Count* 9.48 K/uL (4.50-11.00)
[2022-04-09 14:41] LABS: Slide Review Reflex No
[2022-04-09] MEDS: EPOETIN ALFA 20,000 UNIT/ML VIAL 10000 UNIT SUBCUT (15:05)
[2022-04-09 15:14] VITALS: BP 143/70; PULSE 71; TEMP 37.1; O2SAT 100
[2022-04-23 14:16] LABS: Basophils Absolute Auto 0.06 K/uL (0.00-0.30); Basophils Percent Auto 0.7 % (0.0-3.0); Eosinophils Absolute Auto 0.46 K/uL (0.00-0.50); Eosinophils Percent Auto 5.3 % (0.0-7.0); Hematocrit 28.2 % (33.0-51.0); Immature Granulocytes Abs Auto 0.01 K/uL (0.00-0.30); Immature Granulocytes Pct Auto 0.1 %; Lymphocytes Percent Auto 6.2 % (20-44); Mean Corpuscular HGB Conc 32 gm/dL (32-36); Mean Corpuscular Hemoglobin 30 pg (26-34); Mean Corpuscular Volume 94 fL (80-100); Monocytes Percent Auto 5.4 % (0.0-11.0); Neutrophils Percent Auto 82.3 % (42.0-72.0); Platelet Count* 186 K/uL (140-440); RDW Coefficient of Variation % 18.6 % (11.5-15.5); White Blood Count* 8.74 K/uL (4.50-11.00)
[2022-04-23 14:29] VITALS: BP 117/73; PULSE 68; RESP 16; TEMP 36.8; O2SAT 97
[2022-04-23 14:35] LABS: Iron* 56 ug/dL (37-170)
[2022-04-23 14:39] LABS: Slide Review Reflex No
[2022-04-23 14:47] LABS: Percent Iron Saturation 23 % (20-50); Total Iron Binding Capacity 241 ug/dL (265-497)
[2022-04-23 14:49] VITALS: BP 119/86; PULSE 94; RESP 16; TEMP 36.2; O2SAT 97
[2022-04-23] MEDS: EPOETIN ALFA 20,000 UNIT/ML VIAL 10000 UNIT SUBCUT (15:08)
[2022-04-23 15:32] LABS: Vitamin B12* 943 pg/mL (243-894)
[2022-04-25 15:10] LABS: Folate, Serum >22.3 ng/mL (>=5.9)
[2022-05-21 14:04] LABS: Basophils Absolute Auto 0.06 K/uL (0.00-0.30); Basophils Percent Auto 0.7 % (0.0-3.0); Eosinophils Absolute Auto 0.47 K/uL (0.00-0.50); Eosinophils Percent Auto 5.1 % (0.0-7.0); Hematocrit 30.2 % (33.0-51.0); Hemoglobin* 9.6 gm/dL (12.0-16.0); Immature Granulocytes Abs Auto 0.02 K/uL (0.00-0.30); Immature Granulocytes Pct Auto 0.2 %; Lymphocytes Percent Auto 9.9 % (20-44); Mean Corpuscular HGB Conc 32 gm/dL (32-36); Mean Corpuscular Hemoglobin 30 pg (26-34); Mean Corpuscular Volume 94 fL (80-100); Monocytes Percent Auto 9.8 % (0.0-11.0); Neutrophils Percent Auto 74.3 % (42.0-72.0); Platelet Count* 211 K/uL (140-440); RDW Coefficient of Variation % 18.9 % (11.5-15.5); Red Blood Count 3.21 m/uL (4.00-5.20); White Blood Count* 9.21 K/uL (4.50-11.00)
[2022-05-21 14:07] LABS: Slide Review Reflex No
[2022-05-21 14:14] VITALS: BP 107/68; PULSE 71; RESP 16; TEMP 36.4; O2SAT 100
[2022-05-21] MEDS: EPOETIN ALFA 20,000 UNIT/ML VIAL 10000 UNIT SUBCUT (14:36)
[2022-06-04 14:37] LABS: Basophils Absolute Auto 0.05 K/uL (0.00-0.30); Basophils Percent Auto 0.7 % (0.0-3.0); Eosinophils Absolute Auto 0.29 K/uL (0.00-0.50); Eosinophils Percent Auto 3.9 % (0.0-7.0); Hematocrit 28.6 % (33.0-51.0); Hemoglobin* 9.1 gm/dL (12.0-16.0); Immature Granulocytes Abs Auto 0.06 K/uL (0.00-0.30); Immature Granulocytes Pct Auto 0.8 %; Lymphocytes Percent Auto 15.1 % (20-44); Mean Corpuscular HGB Conc 32 gm/dL (32-36); Mean Corpuscular Hemoglobin 30 pg (26-34); Mean Corpuscular Volume 95 fL (80-100); Monocytes Percent Auto 11.1 % (0.0-11.0); Neutrophils Absolute Auto 5.13 K/uL (1.7-7.0); Neutrophils Percent Auto 68.4 % (42.0-72.0); Platelet Count* 237 K/uL (140-440); RDW Coefficient of Variation % 18.8 % (11.5-15.5); Red Blood Count 3.01 m/uL (4.00-5.20); White Blood Count* 7.49 K/uL (4.50-11.00)
[2022-06-04 14:43] VITALS: BP 86/51; PULSE 74; RESP 16; TEMP 36.7; O2SAT 98
[2022-06-04 14:58] LABS: Slide Review Reflex No
[2022-06-04 15:07] LABS: Albumin* 4.4 g/dL (3.3-5.0)
[2022-06-04 15:08] LABS: Chloride* 102 mmol/L (96-114); Sodium* 138 mmol/L (135-149)
[2022-06-04 15:10] LABS: Aspartate Amino Transferase* 34 U/L (12-35); Bilirubin Total* 0.8 mg/dL (0.1-1.5); Carbon Dioxide* 27 mmol/L (20-32); Creatinine* 1.7 mg/dL (0.5-1.5); Estimated Glomerular Filt Rate 31 ml/min
[2022-06-04 15:11] LABS: Alanine Aminotransferase* 27 U/L (4-35); Alkaline Phosphatase* 187 U/L (40-150); Blood Urea Nitrogen* 47 mg/dL (7-30); Calcium* 8.6 mg/dL (8.4-10.6); Glucose* 108 mg/dL (60-115); Potassium* 3.6 mmol/L (3.6-5.1); Total Protein* 7.5 g/dL (6.0-8.3)
[2022-06-04] MEDS: EPOETIN ALFA 20,000 UNIT/ML VIAL 10000 UNIT SUBCUT (15:23)
[2022-06-04 15:31] VITALS: BP 106/58; PULSE 62
[2022-06-04 15:32] VITALS: BP 106/58; PULSE 67
--- NOTE | 2022-06-04 15:35 | ONC.NURNOTE ---
Pt here for procrit. BP low upon arrival. Pt states she did have a colonoscopy last wednesday, had diarrhea over the weekend which has now resolved. Pt states she is drinking at least 64 oz of water a day. Denies dizziness or lightheadedness. Main concern is the left sided abdominal pain she has been having, and primary care are following her for this. Orthostatics done sitting 106/58 HR 62, standing 109/58 HR 67. Pt encouraged to check BP at home prior to taking BP meds, and to follow up with primary care regarding abd pain and recent colonoscopy.
[2022-06-04 15:38] LABS: Vitamin D 25 Hydroxy* 81 ng/mL (30-80)
[2022-06-08 16:06] LABS: Hematocrit 29.8 % (33.0-51.0); Hemoglobin* 9.8 gm/dL (12.0-16.0); Mean Corpuscular HGB Conc 33 gm/dL (32-36); Mean Corpuscular Hemoglobin 31 pg (26-34); Mean Corpuscular Volume 93 fL (80-100); Platelet Count* 262 K/uL (140-440); Red Blood Count 3.21 m/uL (4.00-5.20); White Blood Count* 9.05 K/uL (4.50-11.00)
[2022-06-08 16:12] LABS: Chloride* 96 mmol/L (96-114)
[2022-06-08 16:13] LABS: Albumin* 4.7 g/dL (3.3-5.0); Sodium* 136 mmol/L (135-149)
[2022-06-08 16:16] LABS: Blood Urea Nitrogen* 62 mg/dL (7-30); Calcium* 8.7 mg/dL (8.4-10.6); Carbon Dioxide* 29 mmol/L (20-32); Estimated Glomerular Filt Rate 25 ml/min; Glucose* 97 mg/dL (60-115); Phosphorus* 3.8 mg/dL (2.5-4.5)
[2022-06-08 17:02] LABS: Slide Review Acceptable Review (Acceptable); Slide Review Reflex No
[2022-06-11 03:25] LABS: Iron* 43 ug/dL (37-170)
[2022-06-11 03:36] LABS: Percent Iron Saturation 19 % (20-50); Total Iron Binding Capacity 229 ug/dL (265-497)
[2022-06-18 12:01] LABS: Basophils Absolute Auto 0.04 K/uL (0.00-0.30); Basophils Percent Auto 0.4 % (0.0-3.0); Eosinophils Absolute Auto 0.37 K/uL (0.00-0.50); Eosinophils Percent Auto 3.8 % (0.0-7.0); Hematocrit 30.4 % (33.0-51.0); Hemoglobin* 9.7 gm/dL (12.0-16.0); Immature Granulocytes Abs Auto 0.01 K/uL (0.00-0.30); Immature Granulocytes Pct Auto 0.1 %; Mean Corpuscular HGB Conc 32 gm/dL (32-36); Mean Corpuscular Hemoglobin 30 pg (26-34); Mean Corpuscular Volume 95 fL (80-100); Monocytes Percent Auto 9.3 % (0.0-11.0); Neutrophils Percent Auto 75.4 % (42.0-72.0); Platelet Count* 222 K/uL (140-440); RDW Coefficient of Variation % 18.6 % (11.5-15.5); White Blood Count* 9.79 K/uL (4.50-11.00)
[2022-06-18 12:03] VITALS: BP 124/73; PULSE 68; RESP 20; TEMP 36.6; O2SAT 100
[2022-06-18 12:05] LABS: Slide Review Reflex No
[2022-06-18 13:07] LABS: Vitamin B12* 964 pg/mL (243-894)
[2022-06-18] MEDS: EPOETIN ALFA 20,000 UNIT/ML VIAL 12500 UNIT SUBCUT (13:51)
[2022-06-19 22:39] LABS: Folate, Serum >22.3 ng/mL (>=5.9)
[2022-07-02 14:07] LABS: Hematocrit 28.6 % (33.0-51.0); Hemoglobin* 9.2 gm/dL (12.0-16.0); Mean Corpuscular HGB Conc 32 gm/dL (32-36); Mean Corpuscular Hemoglobin 30 pg (26-34); Mean Corpuscular Volume 93 fL (80-100); Platelet Count* 199 K/uL (140-440); Red Blood Count 3.07 m/uL (4.00-5.20); White Blood Count* 8.37 K/uL (4.50-11.00)
[2022-07-02 14:09] LABS: Slide Review Reflex No
[2022-07-02] MEDS: EPOETIN ALFA 20,000 UNIT/ML VIAL 12500 UNIT SUBCUT (14:37)
== END 2022-07-12 23:59 | disposition home or self-care (01) ==
LOC: CCIC 14:00
PROVIDERS: Internal Medicine Hematology & Oncology; Internal Medicine Nephrology; PCP Family Medicine; Referring Provider Family Medicine; Visit Provider Clinical Nurse Specialist
DX: N18.30 Chronic kidney disease, stage 3 unspecified (principal); D63.1 Anemia in chronic kidney disease
CPT/HCPCS: 36415; 80053; 80069; 81003; 82043; 82306; 82570; 82607; 82728; 82746; 83540; 83550; 84443; 85025; 85027; 96372; 99202; 99205; 99212; 99213; 99214; J0885

== ENCOUNTER 2022-07-10 13:05 | Outpatient (CLI) | payer OTHER, SELFPAY | END 2022-07-10 13:06 | disposition home or self-care (01) | LOC: NFLDREF 07-18 07:57 | PROVIDERS: PCP Family Medicine; Referring Provider Family Medicine; Visit Provider Internal Medicine Nephrology | DX: D63.1 Anemia in chronic kidney disease (principal); I50.30 Unspecified diastolic (congestive) heart failure; N18.9 Chronic kidney disease, unspecified | CPT/HCPCS: 80069; 82043; 82570; 82728; 83540; 83550; 84550 ==

== ENCOUNTER 2022-08-20 10:54 | Outpatient (CLI) | payer OTHER, SELFPAY | END 2022-08-20 10:55 | disposition home or self-care (01) | LOC: NFLDREF 08-21 01:33 | PROVIDERS: PCP Family Medicine; Referring Provider Family Medicine; Visit Provider Internal Medicine Nephrology | DX: D63.1 Anemia in chronic kidney disease (principal); I48.91 Unspecified atrial fibrillation; I50.30 Unspecified diastolic (congestive) heart failure; N18.9 Chronic kidney disease, unspecified; I10 Essential (primary) hypertension; M06.9 Rheumatoid arthritis, unspecified; E55.9 Vitamin D deficiency, unspecified | CPT/HCPCS: 80069; 82043; 82570; 82728; 83540; 83550; 86140 ==

== ENCOUNTER 2022-12-08 10:51 | Outpatient (RCR) | payer SELFPAY | END 2023-06-24 15:05 | disposition home or self-care (01) | LOC: MOW 10:51 | PROVIDERS: PCP Family Medicine; Visit Provider Family Medicine | DX: Z76.0 Encounter for issue of repeat prescription (principal) ==

== ENCOUNTER 2022-12-17 13:27 | Outpatient (CLI) | payer OTHER, SELFPAY | END 2022-12-17 13:28 | disposition home or self-care (01) | LOC: NFLDREF 12-18 08:24 | PROVIDERS: PCP Family Medicine; Referring Provider Family Medicine; Visit Provider Internal Medicine Nephrology | DX: D63.1 Anemia in chronic kidney disease (principal); I50.30 Unspecified diastolic (congestive) heart failure; N18.9 Chronic kidney disease, unspecified; E55.9 Vitamin D deficiency, unspecified; I10 Essential (primary) hypertension | CPT/HCPCS: 80069; 82043; 82570; 82728; 83540; 83550; 84550 ==

== ENCOUNTER 2022-12-31 14:00 | Outpatient (RCR) | payer OTHER, SELFPAY ==
--- NOTE | 2022-07-15 14:21 | URNOTE ---
Request received for authorization for Erythropoietin ([id number]). Prior authorization is not required per [employer] Ref#[id number].
[2022-07-16 14:09] LABS: Basophils Absolute Auto 0.04 K/uL (0.00-0.30); Basophils Percent Auto 0.4 % (0.0-3.0); Eosinophils Absolute Auto 0.11 K/uL (0.00-0.50); Eosinophils Percent Auto 1.1 % (0.0-7.0); Hematocrit 30.1 % (33.0-51.0); Hemoglobin* 9.5 gm/dL (12.0-16.0); Immature Granulocytes Abs Auto 0.01 K/uL (0.00-0.30); Immature Granulocytes Pct Auto 0.1 %; Lymphocytes Percent Auto 7.1 % (20-44); Mean Corpuscular HGB Conc 32 gm/dL (32-36); Mean Corpuscular Hemoglobin 30 pg (26-34); Mean Corpuscular Volume 95 fL (80-100); Monocytes Percent Auto 5.1 % (0.0-11.0); Neutrophils Percent Auto 86.2 % (42.0-72.0); Platelet Count* 217 K/uL (140-440); RDW Coefficient of Variation % 18.3 % (11.5-15.5); Red Blood Count 3.16 m/uL (4.00-5.20); White Blood Count* 9.72 K/uL (4.50-11.00)
[2022-07-16 14:13] LABS: Slide Review Reflex No
[2022-07-16 14:25] VITALS: BP 119/61; PULSE 60; RESP 16; TEMP 37; O2SAT 98
[2022-07-16] MEDS: EPOETIN ALFA 20,000 UNIT/ML VIAL 20000 UNIT SUBCUT (14:46)
--- NOTE | 2022-07-28 12:49 | URNOTE ---
Procrit (J0885) has been approved, as ordered, based on medical necessity and following FDA guidelines. 07/28/2022-05/09/2023. Auth #[id number] Per Mercedes Robles at [facility], Call ref #[id number]
[2022-07-30 14:14] LABS: Hematocrit 30.3 % (33.0-51.0); Hemoglobin* 9.5 gm/dL (12.0-16.0); Mean Corpuscular HGB Conc 31 gm/dL (32-36); Mean Corpuscular Hemoglobin 30 pg (26-34); Mean Corpuscular Volume 97 fL (80-100); Platelet Count* 171 K/uL (140-440); Red Blood Count 3.14 m/uL (4.00-5.20); White Blood Count* 6.83 K/uL (4.50-11.00)
[2022-07-30 14:24] LABS: Slide Review Reflex No
[2022-07-30 14:33] VITALS: BP 119/50; PULSE 58; RESP 16; TEMP 36.5; O2SAT 99
[2022-07-30] MEDS: EPOETIN ALFA 20,000 UNIT/ML VIAL 20000 UNIT SUBCUT (14:43)
[2022-08-13 14:29] LABS: Basophils Absolute Auto 0.05 K/uL (0.00-0.30); Basophils Percent Auto 0.5 % (0.0-3.0); Eosinophils Absolute Auto 0.18 K/uL (0.00-0.50); Eosinophils Percent Auto 1.9 % (0.0-7.0); Hematocrit 31.8 % (33.0-51.0); Immature Granulocytes Abs Auto 0.01 K/uL (0.00-0.30); Immature Granulocytes Pct Auto 0.1 %; Lymphocytes Percent Auto 7.4 % (20-44); Mean Corpuscular HGB Conc 31 gm/dL (32-36); Mean Corpuscular Hemoglobin 30 pg (26-34); Mean Corpuscular Volume 95 fL (80-100); Monocytes Percent Auto 6.8 % (0.0-11.0); Neutrophils Percent Auto 83.3 % (42.0-72.0); Platelet Count* 215 K/uL (140-440); RDW Coefficient of Variation % 18.9 % (11.5-15.5); Red Blood Count 3.35 m/uL (4.00-5.20); White Blood Count* 9.54 K/uL (4.50-11.00)
[2022-08-13 14:36] LABS: Slide Review Reflex No
[2022-08-13] MEDS: EPOETIN ALFA 20,000 UNIT/ML VIAL 20000 UNIT SUBCUT (15:05)
[2022-08-13 15:26] VITALS: BP 127/75; PULSE 61; RESP 18; O2SAT 96
[2022-08-27] MEDS: EPOETIN ALFA 20,000 UNIT/ML VIAL 20000 UNIT SUBCUT (14:22)
[2022-09-10 14:00] VITALS: BP 123/72; PULSE 66; RESP 16; TEMP 36.1; O2SAT 94
[2022-09-10 14:03] LABS: Hematocrit 30.4 % (33.0-51.0); Hemoglobin* 9.8 gm/dL (12.0-16.0); Mean Corpuscular HGB Conc 32 gm/dL (32-36); Mean Corpuscular Hemoglobin 30 pg (26-34); Mean Corpuscular Volume 94 fL (80-100); Platelet Count* 184 K/uL (140-440); Red Blood Count 3.23 m/uL (4.00-5.20); White Blood Count* 7.59 K/uL (4.50-11.00)
[2022-09-10 14:06] LABS: Slide Review Reflex No
[2022-09-10] MEDS: EPOETIN ALFA 20,000 UNIT/ML VIAL 20000 UNIT SUBCUT (14:31)
[2022-09-23 14:30] LABS: Basophils Absolute Auto 0.07 K/uL (0.00-0.30); Basophils Percent Auto 0.8 % (0.0-3.0); Eosinophils Absolute Auto 0.14 K/uL (0.00-0.50); Eosinophils Percent Auto 1.5 % (0.0-7.0); Hematocrit 31.3 % (33.0-51.0); Hemoglobin* 9.9 gm/dL (12.0-16.0); Immature Granulocytes Abs Auto 0.02 K/uL (0.00-0.30); Immature Granulocytes Pct Auto 0.2 %; Lymphocytes Percent Auto 7.6 % (20-44); Mean Corpuscular HGB Conc 32 gm/dL (32-36); Mean Corpuscular Hemoglobin 30 pg (26-34); Mean Corpuscular Volume 95 fL (80-100); Monocytes Percent Auto 6.9 % (0.0-11.0); Platelet Count* 227 K/uL (140-440); RDW Coefficient of Variation % 18.8 % (11.5-15.5); Red Blood Count 3.29 m/uL (4.00-5.20); White Blood Count* 9.23 K/uL (4.50-11.00)
[2022-09-23 15:11] LABS: Slide Review Reflex No
[2022-09-23 15:25] VITALS: BP 103/59; PULSE 55; RESP 16; TEMP 36.8; O2SAT 94
[2022-09-23] MEDS: EPOETIN ALFA 20,000 UNIT/ML VIAL 20000 UNIT SUBCUT (15:33)
[2022-10-08 14:10] LABS: Hematocrit 30.4 % (33.0-51.0); Hemoglobin* 9.7 gm/dL (12.0-16.0); Mean Corpuscular HGB Conc 32 gm/dL (32-36); Mean Corpuscular Hemoglobin 30 pg (26-34); Mean Corpuscular Volume 94 fL (80-100); Platelet Count* 227 K/uL (140-440); Red Blood Count 3.22 m/uL (4.00-5.20); White Blood Count* 9.66 K/uL (4.50-11.00)
[2022-10-08 14:15] VITALS: BP 110/68; PULSE 67; RESP 16; TEMP 36.1; O2SAT 94
[2022-10-08 14:23] LABS: Appearance Urine Clear (Clear); Bilirubin Urine Negative (Negative); Blood Urine Negative (Negative); Color Urine Yellow (Yellow); Glucose Urine Negative (Negative); Ketones Urine Negative (Negative); Leukocyte Esterase Urine Negative (Negative); Nitrite Urine Negative (Negative); Protein Urine Negative (Negative); Urobilinogen Urine 0.2 (0.2-1.0); pH Urine 6.5 (5.0-8.5)
[2022-10-08 14:28] LABS: Slide Review Reflex No
[2022-10-08 14:39] LABS: Albumin* 4.5 g/dL (3.3-5.0); Chloride* 99 mmol/L (96-114); Potassium* 4.7 mmol/L (3.6-5.1); Sodium* 138 mmol/L (135-149)
[2022-10-08 14:42] LABS: Blood Urea Nitrogen* 66 mg/dL (7-30); Carbon Dioxide* 28 mmol/L (20-32); Creatinine* 2.1 mg/dL (0.5-1.5); Estimated Glomerular Filt Rate 24 ml/min
[2022-10-08 14:43] LABS: Calcium* 8.9 mg/dL (8.4-10.6); Glucose* 97 mg/dL (60-115); Phosphorus* 4.2 mg/dL (2.5-4.5); Uric Acid* 9.1 mg/dL (2.2-8.4)
[2022-10-08 14:51] LABS: Iron* 66 ug/dL (37-170)
[2022-10-08 15:00] LABS: Percent Iron Saturation 27 % (20-50); Total Iron Binding Capacity 245 ug/dL (265-497)
[2022-10-08] MEDS: EPOETIN ALFA 20,000 UNIT/ML VIAL 20000 UNIT SUBCUT (15:16)
[2022-10-08 15:30] LABS: Microalbumin Creatinine Ratio 60 mg/g (0-30); Microalbumin Urine 3 mg/dL
--- NOTE | 2022-10-08 16:16 | ONC.NURNOTE ---
sl. elevated creat. UA wnl. pt states voiding in good amt. states drinking water. enc her to keep drinking water. labs faxed to Dr. Agarwal. pt states seeing him in a couple of days.
--- NOTE | 2022-10-21 09:27 | URNOTE ---
Per Gloria at [facility], Increase dose of Procrit does not need new authorization if it follows FDA/medicare guidelines and is medically necessary. Auth #[id number]
[2022-10-21 13:46] VITALS: BP 120/70; PULSE 75; RESP 16; TEMP 36.8; O2SAT 93
[2022-10-21 13:58] LABS: Basophils Absolute Auto 0.04 K/uL (0.00-0.30); Basophils Percent Auto 0.5 % (0.0-3.0); Eosinophils Absolute Auto 0.14 K/uL (0.00-0.50); Eosinophils Percent Auto 1.6 % (0.0-7.0); Hematocrit 29.9 % (33.0-51.0); Hemoglobin* 9.4 gm/dL (12.0-16.0); Immature Granulocytes Abs Auto 0.02 K/uL (0.00-0.30); Immature Granulocytes Pct Auto 0.2 %; Lymphocytes Percent Auto 5.3 % (20-44); Mean Corpuscular HGB Conc 31 gm/dL (32-36); Mean Corpuscular Hemoglobin 30 pg (26-34); Mean Corpuscular Volume 94 fL (80-100); Monocytes Percent Auto 8.8 % (0.0-11.0); Neutrophils Percent Auto 83.6 % (42.0-72.0); Platelet Count* 202 K/uL (140-440); RDW Coefficient of Variation % 18.8 % (11.5-15.5); Red Blood Count 3.19 m/uL (4.00-5.20); White Blood Count* 8.68 K/uL (4.50-11.00)
[2022-10-21 14:01] LABS: Slide Review Reflex No
[2022-10-21] MEDS: EPOETIN ALFA 20,000 UNIT/ML VIAL 25000 UNIT SUBCUT (14:50)
[2022-11-06 14:03] LABS: Hematocrit 31.2 % (33.0-51.0); Hemoglobin* 9.8 gm/dL (12.0-16.0); Mean Corpuscular HGB Conc 31 gm/dL (32-36); Mean Corpuscular Hemoglobin 29 pg (26-34); Mean Corpuscular Volume 93 fL (80-100); Platelet Count* 213 K/uL (140-440); Red Blood Count 3.34 m/uL (4.00-5.20); White Blood Count* 9.17 K/uL (4.50-11.00)
[2022-11-06 14:04] VITALS: BP 113/52; PULSE 57; RESP 16; TEMP 36.9; O2SAT 95
[2022-11-06 14:04] LABS: Slide Review Reflex No
[2022-11-06] MEDS: EPOETIN ALFA 20,000 UNIT/ML VIAL 25000 UNIT SUBCUT (14:18)
[2022-11-20 14:00] VITALS: BP 120/53; PULSE 76; RESP 18; TEMP 36.1; O2SAT 93
[2022-11-20 14:14] LABS: Hematocrit 29.7 % (33.0-51.0); Hemoglobin* 9.3 gm/dL (12.0-16.0); Mean Corpuscular HGB Conc 31 gm/dL (32-36); Mean Corpuscular Hemoglobin 30 pg (26-34); Mean Corpuscular Volume 95 fL (80-100); Platelet Count* 193 K/uL (140-440); Red Blood Count 3.14 m/uL (4.00-5.20); White Blood Count* 8.32 K/uL (4.50-11.00)
[2022-11-20 14:17] LABS: Slide Review Reflex No
[2022-11-20] MEDS: EPOETIN ALFA 20,000 UNIT/ML VIAL 25000 UNIT SUBCUT (14:36)
[2022-12-03 14:13] LABS: Hematocrit 29.6 % (33.0-51.0); Hemoglobin* 9.3 gm/dL (12.0-16.0); Mean Corpuscular HGB Conc 31 gm/dL (32-36); Mean Corpuscular Hemoglobin 30 pg (26-34); Mean Corpuscular Volume 94 fL (80-100); Platelet Count* 204 K/uL (140-440); Red Blood Count 3.14 m/uL (4.00-5.20); White Blood Count* 8.64 K/uL (4.50-11.00)
[2022-12-03 14:20] LABS: Slide Review Reflex No
[2022-12-03] MEDS: EPOETIN ALFA 20,000 UNIT/ML VIAL 25000 UNIT SUBCUT (15:15)
[2022-12-17 13:42] VITALS: BP 132/59; PULSE 64; RESP 20; TEMP 36.9; O2SAT 92
[2022-12-17] MEDS: EPOETIN ALFA 20,000 UNIT/ML VIAL 25000 UNIT SUBCUT (14:35)
--- NOTE | 2022-12-21 15:26 | ONC.NURNOTE ---
Dx: Anemia of CKD D63.1
[2022-12-31 14:08] LABS: Hematocrit 31.2 % (33.0-51.0); Hemoglobin* 9.5 gm/dL (12.0-16.0); Mean Corpuscular HGB Conc 30 gm/dL (32-36); Mean Corpuscular Hemoglobin 29 pg (26-34); Mean Corpuscular Volume 96 fL (80-100); Platelet Count* 208 K/uL (140-440); Red Blood Count 3.26 m/uL (4.00-5.20); White Blood Count* 9.33 K/uL (4.50-11.00)
[2022-12-31 14:12] LABS: Slide Review Reflex No
[2022-12-31] MEDS: EPOETIN ALFA 20,000 UNIT/ML VIAL 30000 UNIT SUBCUT (15:04)
[2022-12-31 15:55] VITALS: BP 103/69; PULSE 75; RESP 16; TEMP 36.7; O2SAT 93
== END 2023-01-12 23:59 | disposition home or self-care (01) ==
LOC: CCIC 14:00
PROVIDERS: Internal Medicine Nephrology; PCP Family Medicine; Referring Provider Family Medicine; Visit Provider Clinical Nurse Specialist
DX: N18.30 Chronic kidney disease, stage 3 unspecified (principal); D63.1 Anemia in chronic kidney disease
CPT/HCPCS: 36415; 80069; 81003; 82043; 82570; 83540; 83550; 84550; 85025; 85027; 96372; J0885

== ENCOUNTER 2023-02-11 13:22 | Outpatient (CLI) | payer OTHER, SELFPAY | END 2023-02-11 13:23 | disposition home or self-care (01) | LOC: NFLDREF 02-16 11:31 | PROVIDERS: PCP Family Medicine; Referring Provider Family Medicine; Visit Provider Family Medicine | DX: R30.0 Dysuria (principal); N39.0 Urinary tract infection, site not specified | CPT/HCPCS: 87086; 87186 ==

== ENCOUNTER 2023-02-16 19:00 | Emergency (ER) | payer OTHER, SELFPAY ==
[2023-02-16] VITALS (18 sets, daily range): BP systolic 108–131; BP diastolic 54–71; PULSE 44–79; RESP 18; TEMP 36.6; O2SAT 87–100; BMI 24.5
--- NOTE | 2023-02-16 19:34 | ED_ITS ---
HPI - General Adult General Chief complaint: Shortness of Breath/Dyspnea Stated complaint: Difficulty breathing neg covid Time Seen by Provider: 02/16/23 19:12 History of Present Illness HPI narrative: Patient reports shortness of breath for the past 3 days. Chest congestion and bilateral leg swelling. Worse with activity. Does note history of CHF, attempted to take extra torsemide but symptoms persist. 77-year-old woman presenting to the emergency department with concern of increasing shortness of breath. Underlying history of persistent atrial fibrillation she says along with heart failure. History of valvular repair and replacement. I believe replacement of mitral valve and repair of tricuspid valve. She does take daily weights and is up by 5 lb over the last week or so. Yesterday she did double her dose of torsemide and potassium. Is anticoagulated with Eliquis. She is more dyspneic with exertion. Has some discomfort in her chest more of a pressure though this is not new today. Was seen in urgent care for did call over here. Checked a COVID was negative. Apparently chest x-ray two view did not reveal any etiology either. She is not reporting any bleeding. Related Data Home Medications Medication Instructions Recorded Confirmed apixaban 5 mg tablet 5 mg PO BID 11/18/21 02/25/23 ascorbic acid (vitamin C) 1,000 mg 1,000 mg PO DAILY 11/18/21 02/25/23 tablet ferrous sulfate 325 mg (65 mg 650 mg PO DAILY 11/18/21 02/25/23 iron) tablet hydroxychloroquine 200 mg tablet 400 mg PO DAILY 11/18/21 02/25/23 loperamide 2 mg capsule 4 mg PO DAILY 11/18/21 02/25/23 prednisone 5 mg tablet 5 mg PO DAILY 11/18/21 02/25/23 metoprolol succinate 50 mg 25 mg PO BID 01/06/22 02/25/23 tablet,extended release 24 hr potassium chloride 20 mEq 20 meq PO DAILY 01/06/22 02/25/23 tablet,extended release(part/cryst) oxybutynin chloride 5 mg 5 mg PO QDAY 08/07/22 02/25/23 tablet,extended release 24 hr albuterol sulfate 90 mcg/actuation 2 puff inhalation Q4-6H PRN 12/01/22 02/25/23 aerosol inhaler (Ventolin HFA) fluticasone furoate 200 1 ea inhalation DAILY 12/01/22 02/25/23 mcg-vilanterol 25 mcg/dose inhalation powder (Breo Ellipta) Previous Rx's Medication Instructions Recorded torsemide 20 mg tablet 60 mg (3 x 20 mg) PO DAILY #270 04/03/22 tabs Synthroid 125 mcg tablet 125 mcg PO DAILY #90 tabs 08/06/22 (levothyroxine) citalopram 20 mg tablet 20 mg PO DAILY #90 tabs 08/06/22 omeprazole 20 mg capsule,delayed 20 mg PO DAILY #90 caps 08/06/22 release bupropion HCl 300 mg 24 hr tablet, 300 mg PO QAM #90 tabs 12/01/22 extended release Allergies Allergy/AdvReac Type Severity Reaction Status Date / Time gabapentin Allergy Mild possible Verified 02/25/23 14:40 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 levothyroxine Allergy Unknown boils, Verified 02/25/23 14:40 hives hydrocodone AdvReac Mild nausea per Verified 02/25/23 14:40 previous records received Review of Systems Status of ROS: Reports: 6 or more systems reviewed and unremarkable except as noted in History and below [facility] Medical History History of colitis ?Z87.19 - Personal history of other diseases of the digestive system (ICD-10) MSSA bacteremia ?R78.81 - Bacteremia (ICD-10) ?B95.61 - Methicillin susceptible Staphylococcus aureus infection as the cause of diseases classified elsewhere (ICD-10) EDITH (obstructive sleep apnea) ?G47.33 - Obstructive sleep apnea (adult) (pediatric) (ICD-10) 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 - Sarcoidosis of lung (ICD-10) Ischemic cardiomyopathy ?I25.5 - Ischemic cardiomyopathy (ICD-10) Anemia in chronic kidney disease ?N18.9 - Chronic kidney disease, unspecified (ICD-10) ?D63.1 - Anemia in chronic kidney disease (ICD-10) Vitamin D deficiency ?E55.9 - Vitamin D deficiency, unspecified (ICD-10) Upper gastrointestinal hemorrhage ?K92.2 - Gastrointestinal hemorrhage, unspecified (ICD-10) Tobacco dependence in remission ?F17.201 - Nicotine dependence, unspecified, in remission (ICD-10) Rheumatoid arthritis (1965) ?M06.9 - Rheumatoid arthritis, unspecified (ICD-10) Postoperative hypothyroidism ?E89.0 - Postprocedural hypothyroidism (ICD-10) Hypertension ?I10 - Essential (primary) hypertension (ICD-10) Diastolic congestive heart failure, NYHA class 3 ?I50.30 - Unspecified diastolic (congestive) heart failure (ICD-10) Depression ?F32.A - Depression, unspecified (ICD-10) Collagenous colitis ?K52.831 - Collagenous colitis (ICD-10) Chronic kidney disease ?N18.9 - Chronic kidney disease, unspecified (ICD-10) Atrial fibrillation ?I48.91 - Unspecified atrial fibrillation (ICD-10) Surgical History Hx of tricuspid valve repair ?Z98.890 - Other specified postprocedural states (ICD-10) History of mitral valve replacement ?Z95.2 - Presence of prosthetic heart valve (ICD-10) History of total knee replacement ?Z96.659 - Presence of unspecified artificial knee joint (ICD-10) History of thyroidectomy ?E89.0 - Postprocedural hypothyroidism (ICD-10) History of right knee surgery ?Z98.890 - Other specified postprocedural states (ICD-10) History of hysterectomy for benign disease ?Z90.710 - Acquired absence of both cervix and uterus (ICD-10) History of blepharoplasty ?Z98.890 - Other specified postprocedural states (ICD-10) Social History Narrative: SOCIAL HISTORY: She is . [place] but in the last year she moved to a town home nearby that is wheelchair accessible for her . He has muscular dystrophy. She [place] the country. She describes a very stressful spring where she had trouble with many aspects of the early in the COVID-19 pandemic when nobody wanted to come in contact with anybody else. In a way that kept her busy. She has 3 adult children. One stepdaughter. She is retired. She is exercising by walking the dog every other day. She used to do circuit training and swimming. She is not sexually active. Highest level of school completed/degree received: Bachelor's degree Smoking Status: Never smoker Do you use any of these nicotine containing products: None Second hand tobacco smoke exposure: No How often do you have a drink containing alcohol: never How often do you have six or more drinks on one occasion: Never AUDIT-C Alcohol total score: 0 Non-prescribed substance use: denies use Caffeine: Yes (2 cups) Little interest or pleasure in doing things: nearly every day Feeling down, depressed, or hopeless: nearly every day service: No Exam Narrative: Exam Narrative: Pleasant. Seems a little tired. Mildly labored in her breathing. Diffuse crepitus and some squeaks on auscultation. 2/6 systolic murmur actually loudest at the left sternal border I would say. Heart seems auscultate regularly though on monitor is looking more irregular with a large for AFib going off. Less than 1+ pitting edema about the ankles and lower tibia bilaterally. Oropharynx is little dry. Abdomen is soft and nontender. Skin is warm and dry with extremities well-perfused Const: Vital Signs, click to edit/add: Vital Signs - 24 hr 02/16/23 19:09 02/16/23 19:54 02/16/23 20:01 Temperature 98 F Pulse Rate 59 L Pulse Rate [Pulse Oximeter] 79 Respiratory Rate 18 Blood Pressure Blood Pressure [Ri ght Upper Arm] 108/67 Pulse Oximetry 91 94 93 Oxygen Delivery Me thod Room Air 02/16/23 20:07 02/16/23 20:30 02/16/23 20:31 Temperature Pulse Rate 44 L 65 59 L Pulse Rate [Pulse Oximeter] Respiratory Rate 18 Blood Pressure 116/63 113/54 L Blood Pressure [Ri ght Upper Arm] Pulse Oximetry 91 87 L 90 Oxygen Delivery Me thod 02/16/23 20:32 02/16/23 21:00 02/16/23 21:02 Temperature Pulse Rate 63 64 64 Pulse Rate [Pulse Oximeter] Respiratory Rate Blood Pressure 109/68 Blood Pressure [Ri ght Upper Arm] Pulse Oximetry 89 90 93 Oxygen Delivery Me thod 02/16/23 21:21 02/16/23 21:30 02/16/23 21:31 Temperature Pulse Rate 59 L 55 L 62 Pulse Rate [Pulse Oximeter] Respiratory Rate Blood Pressure 131/71 116/61 Blood Pressure [Ri ght Upper Arm] Pulse Oximetry 100 98 99 Oxygen Delivery Me thod 02/16/23 22:03 02/16/23 22:04 02/16/23 22:30 Temperature Pulse Rate 71 67 61 Pulse Rate [Pulse Oximeter] Respiratory Rate Blood Pressure Blood Pressure [Ri ght Upper Arm] Pulse Oximetry 93 95 89 Oxygen Delivery Me thod 02/16/23 22:34 02/16/23 23:05 02/16/23 23:30 Temperature Pulse Rate 66 71 62 Pulse Rate [Pulse Oximeter] Respiratory Rate 18 Blood Pressure Blood Pressure [Ri ght Upper Arm] Pulse Oximetry 93 91 94 Oxygen Delivery Me thod 02/17/23 00:47 Temperature 98.3 F Pulse Rate Pulse Rate [Pulse Oximeter] 64 Respiratory Rate 18 Blood Pressure Blood Pressure [Ri ght Upper Arm] 116/84 Pulse Oximetry Oxygen Delivery Me thod Documenting provider has reviewed patient's vital signs: yes Course Vital Signs Vital signs: Initial Vital Signs Temperature 98 F 02/16/23 19:09 Temperature Source Temporal Artery Scan 02/16/23 19:09 Pulse Rate 79 02/16/23 19:09 Respiratory Rate 18 02/16/23 19:09 Blood Pressure 108/67 02/16/23 19:09 Blood Pressure Mean 80 02/16/23 19:09 Pulse Oximetry 91 02/16/23 19:09 Oxygen Delivery Method Room Air 02/16/23 19:09 Vital Signs Temperature 98 F 02/16/23 19:09 Pulse Rate 79 02/16/23 19:09 Respiratory Rate 18 02/16/23 19:09 Blood Pressure 108/67 02/16/23 19:09 Pulse Oximetry 91 02/16/23 19:09 Oxygen Delivery Method Room Air 02/16/23 19:09 Temperature 98.3 F 02/17/23 00:47 Pulse Rate 64 02/17/23 00:47 Respiratory Rate 18 02/17/23 00:47 Blood Pressure 116/84 02/17/23 00:47 Pulse Oximetry 94 02/16/23 23:30 Oxygen Delivery Method Room Air 02/16/23 19:09 Medical Decision Making MDM Narrative Medical decision making narrative: Source of dyspnea may be cardiogenic, demand ischemia, pulmonary embolus. Did review imaging does not appear to have pneumonia on chest x-ray though does appear to have some interstitial edema mild, mild cardiomegaly. Sternotomy wi res noted. Suspect CHF exacerbation Will be monitoring on [employer]strategy reports developer and oximetry. Given DuoNeb. Oxygen saturations as expected did drop a little bit. Has drifted below 90%. Given IV furosemide. Numerous trips to the bathroom. Oxygen saturations have settled in the low 90s. Still mildly tachypneic but overall reporting feeling improved. Discussed potential admission however does have oxygen available at home if needed as well. Creatinine is 2.[address] [place] [address]. Normal white count. See patient discharge plan Medical Records Medical records reviewed: Yes I reviewed the patient's medical records Lab Data Lab results reviewed: Yes I reviewed the patient's lab results Labs: Lab Results 02/16/23 02/16/23 02/16/23 Range/Units 19:54 19:55 21:15 WBC 7.92 (4.50-11.00) K/uL RBC 3.18 L (4.00-5.20) m/uL Hgb 9.4 L (12.0-16.0) gm/dL Hct 29.7 L (33.0-51.0) % MCV 93 (80-100) fL MCH 30 (26-34) pg MCHC 32 (32-36) gm/dL RDW Coeff of Estrella 20.0 H (11.5-15.5) % Plt Count 223 (140-440) K/uL Neut % (Auto) 79.0 H (42.0-72.0) % Lymph % (Auto) 8.2 L (20-44) % Alexander % (Auto) 10.7 (0.0-11.0) % Eos % (Auto) 1.4 (0.0-7.0) % Baso % (Auto) 0.6 (0.0-3.0) % Neut # (Auto) 6.30 (1.7-7.0) K/uL Lymph # (Auto) 0.60 L (0.90-2.90) K/uL Alexander # (Auto) 0.80 (0.00-0.90) K/UL Eos # (Auto) 0.11 (0.00-0.50) K/uL Baso # (Auto) 0.05 (0.00-0.30) K/uL Abs Immat Gran (auto) 0.01 (0.00-0.30) K/uL Imm/Tot Granulo (auto) 0.1 % Sodium 137 (135-149) mmol/L Potassium 4.5 (3.6-5.1) mmol/L Chloride 101 (96-114) mmol/L Carbon Dioxide 21 (20-32) mmol/L Anion Gap 15 (7-15) mEq/L BUN 68 H (7-30) mg/dL Creatinine 2.2 H (0.5-1.5) mg/dL Estimated Creat Clear 19.27 Estimated GFR 23 ml/min Glucose 93 (60-115) mg/dL Calcium 8.7 (8.4-10.6) mg/dL Magnesium 2.4 Cancelled (1.5-2.6) mg/dL Total Bilirubin 0.8 Cancelled (0.1-1.5) mg/dL Direct Bilirubin 0.1 Cancelled (0.0-0.5) mg/dL AST 42 H Cancelled (12-35) U/L ALT 27 Cancelled (4-35) U/L Alkaline Phosphatase 230 H Cancelled (40-150) U/L C-Reactive Protein 3.9 H (0.5-1.0) mg/dL NT-Pro-B Natriuret Pep 68167 Cancelled pg/mL Total Protein 7.8 Cancelled (6.0-8.3) g/dL Albumin 4.6 Cancelled (3.3-5.0) g/dL Urine Color Yellow (Yellow) Urine Appearance Clear (Clear) Urine pH 6.0 (5.0-8.5) Ur Specific [place] 1.015 (1.000-1.030) Urine Protein Negative (Negative) Urine Glucose (UA) Negative (Negative) Urine Ketones Negative (Negative) Urine Blood Negative (Negative) Urine Nitrite Negative (Negative) Urine Bilirubin Negative (Negative) Urine Urobilinogen 0.2 (0.2-1.0) Ur Leukocyte Esterase Negative (Negative) Urine RBC 0-2 (0-2) Urine WBC 0-2 (0-5) Ur Squamous Epith Cells Few (None-Few) Urine Bacteria None (None) ECG Data Attestation: I personally reviewed and interpreted this ECG as follows: (Atrial fibrillation rate 66) Discharge Plan Discharge Clinical Impression: CHF exacerbation, Shortness of breath Patient Disposition: Home w/ Parent or Adult Condition: Improved Additional Instructions: I would consider taking 2 tablets of your torsemide in the morning and then another 2 tablets in the very early afternoon. That takes your dosing from a total of 60 mg to 80 mg in a day. You do have oximetry available and if you continue to sat below 92% you might want to to use a little bit of your oxygen to get you by over the next couple of days. If really though are not improving over the next couple of days will need to be seen again. I would like you though to check your labs probably sometime early next week to reassess your kidney function. Prescriptions: No Action apixaban 5 mg tablet 5 mg PO BID hydroxychloroquine 200 mg tablet 400 mg PO DAILY ferrous sulfate 325 mg (65 mg iron) tablet 650 mg PO DAILY prednisone 5 mg tablet 5 mg PO DAILY loperamide 2 mg capsule 4 mg PO DAILY ascorbic acid (vitamin C) 1,000 mg tablet 1,000 mg PO DAILY potassium chloride 20 mEq tablet,ER particles/crystals 20 meq PO DAILY metoprolol succinate 50 mg tablet extended release 24 hr 25 mg PO BID albuterol sulfate [Ventolin HFA] 90 mcg/actuation HFA aerosol inhaler 2 puff inhalation Q4-6H PRN fluticasone furoate-vilanterol [Breo Ellipta] 200-25 mcg/dose blister with device 1 ea inhalation DAILY bupropion HCl 300 mg tablet extended release 24 hr 300 mg PO QAM Qty: 90 1RF torsemide 20 mg tablet 60 mg PO DAILY Qty: 270 1RF Rx Instructions: take 3 tabs every morning, take an extra 1-2tabs at 2pm if weight up or dyspneic levothyroxine [Synthroid] 125 mcg tablet 125 mcg PO DAILY Qty: 90 2RF omeprazole 20 mg capsule,delayed release(DR/EC) 20 mg PO DAILY Qty: 90 2RF citalopram 20 mg tablet 20 mg PO DAILY Qty: 90 2RF oxybutynin chloride 5 mg tablet extended release 24hr 5 mg PO QDAY Follow Up/Referrals: Alcides Gonzalez MD [Primary Care Provider] - Stand Alone Forms: [employer] Info Instructions
--- NOTE | 2023-02-16 19:35 | ED.NURSE ---
Patient 88% on Room air with heavy work of breathing. Oxygen applied at 2L NC.
--- NOTE | 2023-02-16 20:01 | ED.NURSE ---
report given off to oncoming RN
[2023-02-16 20:05] LABS: Basophils Absolute Auto 0.05 K/uL (0.00-0.30); Basophils Percent Auto 0.6 % (0.0-3.0); Eosinophils Absolute Auto 0.11 K/uL (0.00-0.50); Eosinophils Percent Auto 1.4 % (0.0-7.0); Hematocrit 29.7 % (33.0-51.0); Hemoglobin* 9.4 gm/dL (12.0-16.0); Immature Granulocytes Abs Auto 0.01 K/uL (0.00-0.30); Immature Granulocytes Pct Auto 0.1 %; Lymphocytes Percent Auto 8.2 % (20-44); Mean Corpuscular HGB Conc 32 gm/dL (32-36); Mean Corpuscular Hemoglobin 30 pg (26-34); Mean Corpuscular Volume 93 fL (80-100); Monocytes Percent Auto 10.7 % (0.0-11.0); Platelet Count* 223 K/uL (140-440); Red Blood Count 3.18 m/uL (4.00-5.20); White Blood Count* 7.92 K/uL (4.50-11.00)
[2023-02-16 20:13] LABS: Slide Review Reflex No
[2023-02-16 20:14] LABS: Chloride* 101 mmol/L (96-114); Potassium* 4.5 mmol/L (3.6-5.1)
[2023-02-16 20:17] LABS: Creatinine* 2.2 mg/dL (0.5-1.5); Est. Creatinine Clearance* 19.27; Estimated Glomerular Filt Rate 23 ml/min
[2023-02-16 20:18] LABS: Albumin* 4.6 g/dL (3.3-5.0); Anion Gap 15 mEq/L (7-15); Blood Urea Nitrogen* 68 mg/dL (7-30); Calcium* 8.7 mg/dL (8.4-10.6); Carbon Dioxide* 21 mmol/L (20-32); Glucose* 93 mg/dL (60-115); Sodium* 137 mmol/L (135-149)
[2023-02-16 20:20] LABS: C Reactive Protein* 3.9 mg/dL (0.5-1.0)
[2023-02-16 20:22] LABS: Alanine Aminotransferase* 27 U/L (4-35); Alkaline Phosphatase* 230 U/L (40-150); Aspartate Amino Transferase* 42 U/L (12-35); Bilirubin Direct* 0.1 mg/dL (0.0-0.5); Bilirubin Total* 0.8 mg/dL (0.1-1.5); Magnesium* 2.4 mg/dL (1.5-2.6); Total Protein* 7.8 g/dL (6.0-8.3)
[2023-02-16 20:28] LABS: NT Pro B Type NatriureticPept* 16000 pg/mL
[2023-02-16 21:20] LABS: Appearance Urine Clear (Clear); Bilirubin Urine Negative (Negative); Blood Urine Negative (Negative); Color Urine Yellow (Yellow); Glucose Urine Negative (Negative); Ketones Urine Negative (Negative); Leukocyte Esterase Urine Negative (Negative); Nitrite Urine Negative (Negative); Protein Urine Negative (Negative); Specific Gravity Urine 1.015 (1.000-1.030); Urobilinogen Urine 0.2 (0.2-1.0)
[2023-02-16] MEDS: FUROSEMIDE 10 MG/ML inj 40 MG IVP (21:21)
[2023-02-16] MEDS: IPRAT-ALBUT 0.5-2.5 MG/3 ML NEB 1 NEB IH (21:21)
[2023-02-16 21:55] LABS: RBC Urine 0-2 (0-2); Squamous Epithelial Cell Urine Few (None-Few); WBC Urine 0-2 (0-5)
[2023-02-17 00:47] VITALS: BP 116/84; PULSE 64; RESP 18; TEMP 36.8
== END 2023-02-17 00:01 | disposition home or self-care (01) ==
PROVIDERS: Emergency Provider Family Medicine; PCP Family Medicine
DX: R06.02 Shortness of breath (principal); I50.9 Heart failure, unspecified
CPT/HCPCS: 36415; 80048; 80076; 81001; 83735; 83880; 85025; 86140; 93005; 94640; 94761; 96374; 99284; J1940

== ENCOUNTER 2023-03-11 13:28 | Outpatient (CLI) | payer OTHER, SELFPAY | END 2023-03-11 13:29 | disposition home or self-care (01) | LOC: NFLDREF 03-15 07:10 | PROVIDERS: PCP Family Medicine; Referring Provider Family Medicine; Visit Provider Internal Medicine Nephrology | DX: D63.1 Anemia in chronic kidney disease (principal); I50.30 Unspecified diastolic (congestive) heart failure; N18.9 Chronic kidney disease, unspecified | CPT/HCPCS: 80069; 82043; 82310; 82570; 82728; 83540; 83550; 83970; 84550 ==

== ENCOUNTER 2023-04-21 13:03 | Observation (INO) | payer OTHER, SELFPAY ==
[2023-04-21] VITALS (28 sets, daily range): BP systolic 119–135; BP diastolic 66–88; PULSE 59–88; RESP 16–20; TEMP 36.3–36.6; O2SAT 88–99; BMI 25.9
--- NOTE | 2023-04-21 13:12 | CRLHL7_ITS ---
For Patients: As a result of the Century Cures Act, medical imaging exams and procedure reports are released immediately into your electronic medical record. You may view this report before your referring provider. If you have questions, please contact your health care provider. INDICATION: Left upper quadrant pain. Difficult urination. TECHNIQUE: CT abdomen and pelvis acquired with 74 mL Isovue 370 IV contrast. COMPARISON: CT abdomen/pelvis dated 04/02/2022. FINDINGS: Lower chest: Bibasilar subsegmental atelectasis/fibrotic changes. No focal consolidation. Liver: Heterogeneous enhancement of the liver parenchyma. 0.6 cm hypervascular lesion along the anterior capsule of segment 3 (series 2, image 54). Gallbladder and bile ducts: Unremarkable. Pancreas: Mildly atrophic. Spleen: Irregular wedge-shaped hypoenhancement in the posterior spleen measuring 3.1 x 3.0 cm, worrisome for infarct. Splenule is noted. Adrenal glands: Unremarkable. Kidneys: Kidneys enhance symmetrically, without hydronephrosis. Mildly atrophic left kidney. Retroperitoneum: Few scattered prominent retroperitoneal lymph nodes, stable. No new lymphadenopathy. Bowel and mesentery: Bowel is not obstructed. No significant ascites. No pneumoperitoneum. Severe fecal burden within the cecum. Bladder: Unremarkable for degree of distension. Reproductive organs: Posthysterectomy. Pelvic lymph nodes: No lymphadenopathy. Vessels: Atherosclerotic calcifications. The visualized portions of the splenic artery and splenic vein are grossly patent. Abdominal wall: No acute abdominal wall abnormality. Bones: Multilevel degenerative changes of the spine. Bones are osteopenic. Moderate to severe anterior compression fracture of T11, new since prior study. IMPRESSION: 1. Posterior splenic infarct. 2. Heterogeneous enhancement of the liver parenchyma is nonspecific, may reflect hepatitis. Recommend correlation with liver function tests. 3. Small 0.6 cm hypervascular lesion along the anterior capsule of segment 3 of the liver. This could be further evaluated with liver MRI, on a nonemergent basis. 4. Age-indeterminate moderate to severe anterior compression fracture of the T11 vertebral body, new since prior study. Recommend correlation with neurologic exam and point tenderness at this level. 5. Severe fecal burden within the cecum. Please note that all CT scans at this facility use dose modulation, iterative reconstruction, and/or weight-based dosing when appropriate to reduce radiation dose to as low as reasonably achievable. Dictated by Brianda Marie MD @ 04/21/2023 4:02:27 PM (Electronically Signed)
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
[2023-04-21 13:31] LABS: Creatinine, Point-of-Care* 1.8 mg/dl (0.6-1.3)
[2023-04-21 13:34] LABS: Basophils Absolute Auto 0.04 K/uL (0.00-0.30); Basophils Percent Auto 0.5 % (0.0-3.0); Eosinophils Absolute Auto 0.16 K/uL (0.00-0.50); Eosinophils Percent Auto 2.1 % (0.0-7.0); Hematocrit 33.3 % (33.0-51.0); Hemoglobin* 10.4 gm/dL (12.0-16.0); Immature Granulocytes Abs Auto 0.02 K/uL (0.00-0.30); Immature Granulocytes Pct Auto 0.3 %; Lymphocytes Percent Auto 7.9 % (20-44); Mean Corpuscular HGB Conc 31 gm/dL (32-36); Mean Corpuscular Hemoglobin 30 pg (26-34); Mean Corpuscular Volume 95 fL (80-100); Monocytes Percent Auto 10.1 % (0.0-11.0); Neutrophils Percent Auto 79.1 % (42.0-72.0); Platelet Count* 203 K/uL (140-440); RDW Coefficient of Variation % 20.6 % (11.5-15.5); Red Blood Count 3.49 m/uL (4.00-5.20); White Blood Count* 7.64 K/uL (4.50-11.00)
[2023-04-21] MEDS: MORPHINE 4 MG/ML INJ IVP ×4 (13:44→23:59)
[2023-04-21] MEDS: ONDANSETRON 2 MG/ML inj 4 MG IVP (13:44)
[2023-04-21 13:46] LABS: Slide Review Reflex Yes
[2023-04-21 13:47] LABS: Albumin* 4.8 g/dL (3.3-5.0); Slide Review Acceptable Review (Acceptable)
[2023-04-21 13:48] LABS: Chloride* 102 mmol/L (96-114); Potassium* 4.6 mmol/L (3.6-5.1); Sodium* 138 mmol/L (135-149)
[2023-04-21 13:50] LABS: Anion Gap 10 mEq/L (7-15); Aspartate Amino Transferase* 31 U/L (12-35); Bilirubin Total* 1.6 mg/dL (0.1-1.5); Carbon Dioxide* 26 mmol/L (20-32); Creatinine* 1.6 mg/dL (0.5-1.5); Estimated Glomerular Filt Rate 33 ml/min; Total Protein* 8.1 g/dL (6.0-8.3)
[2023-04-21 13:51] LABS: Alanine Aminotransferase* 19 U/L (4-35); Alkaline Phosphatase* 188 U/L (40-150); Blood Urea Nitrogen* 56 mg/dL (7-30); Calcium* 9.2 mg/dL (8.4-10.6); Glucose* 124 mg/dL (60-115); Lipase* 158 U/L (23-300)
--- NOTE | 2023-04-21 13:51 | ED.NURSE ---
Pt O2 ~86% on RA. notified, placed pt on 1L O2 NC.
[2023-04-21 14:13] LABS: Troponin I* 0.14 ng/mL (0.01-0.04)
[2023-04-21 14:21] LABS: PCR FLU A Negative PCR FLU A (Negative); PCR FLU B Negative PCR FLU B (Negative)
[2023-04-21 14:23] LABS: SARS PCR* Negative SARS-CoV-2 (Negative)
--- NOTE | 2023-04-21 14:50 | ED.NURSE ---
Pt titrated off O2 to room air.
--- NOTE | 2023-04-21 15:08 | ED.NURSE ---
Pt satting around 86-88% on RA. Placed back on 1L O2 NC. notified.
--- NOTE | 2023-04-21 15:09 | CRLHL7_ITS ---
For Patients: As a result of the Century Cures Act, medical imaging exams and procedure reports are released immediately into your electronic medical record. You may view this report before your referring provider. If you have questions, please contact your health care provider. Indication: Shortness of breath Comparison: Two-view chest February 16, 2023 Technique: PA and lateral views of the chest Findings: There are diffusely increased interstitial markings from comparison with basilar atelectasis and parenchymal scar. There is mild biapical pleural thickening. There is no dense consolidation. The cardiac silhouette is stable with median sternotomy wires. The bony thorax is grossly intact. Impression: Diffusely increased interstitial markings consistent with pulmonary edema and/or atypical infiltrates. Dictated by Kvng Garcia MD @ 04/21/2023 3:35:03 PM (Electronically Signed)
[2023-04-21 15:50] LABS: Appearance Urine Clear (Clear); Bilirubin Urine Negative (Negative); Blood Urine Negative (Negative); Color Urine Yellow (Yellow); Glucose Urine Negative (Negative); Ketones Urine Negative (Negative); Leukocyte Esterase Urine Negative (Negative); Nitrite Urine Negative (Negative); Protein Urine Negative (Negative); Specific Gravity Urine <= 1.005 (1.000-1.030); Urobilinogen Urine 0.2 (0.2-1.0); pH Urine 5.5 (5.0-8.5)
[2023-04-21 15:50] LABS: NT Pro B Type NatriureticPept* 10200 pg/mL
[2023-04-21 16:51] LABS: Troponin I* 0.13 ng/mL (0.01-0.04)
[2023-04-21 17:24] LABS: Prothrombin Time 18.1 Seconds
[2023-04-21 17:25] LABS: Partial Thromboplastin Time* 35 Seconds (23-33)
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
[2023-04-21] MEDS: SENNOSIDES/DOCUSATE TABLET 2 TAB PO (21:07)
[2023-04-21] MEDS: METOPROLOL SUCCINATE (XL) 50 MG TAB 25 MG PO (21:07)
[2023-04-21] MEDS: APIXABAN 5 MG TABLET PO (21:07)
[2023-04-21] MEDS: FUROSEMIDE 10 MG/ML inj 40 MG IVP (21:07)
[2023-04-21] MEDS: SODIUM CHLORIDE 0.9 % (FLUSH) 10 ML SYRINGE 5 ML IVF (21:08)
--- NOTE | 2023-04-21 22:31 | PC.NURSE ---
Shift [id number]- Patient arrives to unit at approximately 1830. She is up with walker and SBA. She reports relief from PRN morphine- rates pain to abdomen as low as 3/10. She appears restful this evening.
[2023-04-22] VITALS (9 sets, daily range): BP systolic 97–115; BP diastolic 61–84; PULSE 59–71; RESP 16–18; TEMP 36.5–37.1; O2SAT 91–95
--- NOTE | 2023-04-22 06:22 | PC.NURSE ---
Patient pleasant, alert and cooperative. Ambulated to the bathroom with walker and stand by assist. Continent of urine. Output of 1030mL of urine since 2200. PRN Morphine given for stabbing pain in lower left abdomen rated 7/10. VSS.?
[2023-04-22 06:40] LABS: HCO3 VBG 31 mmol/L (21-28); PCO2 VBG 57 mmHG (40-50); pH VBG 7.351 (7.32-7.43)
[2023-04-22 06:48] LABS: Hemoglobin* 9.8 gm/dL (12.0-16.0); Mean Corpuscular HGB Conc 31 gm/dL (32-36); Mean Corpuscular Hemoglobin 30 pg (26-34); Mean Corpuscular Volume 97 fL (80-100); Platelet Count* 214 K/uL (140-440); Red Blood Count 3.29 m/uL (4.00-5.20); White Blood Count* 7.11 K/uL (4.50-11.00)
[2023-04-22 06:52] LABS: Slide Review Reflex No
[2023-04-22 06:59] LABS: Albumin* 4.4 g/dL (3.3-5.0); Chloride* 100 mmol/L (96-114)
[2023-04-22 07:00] LABS: Potassium* 4.3 mmol/L (3.6-5.1); Sodium* 139 mmol/L (135-149)
[2023-04-22 07:02] LABS: Alkaline Phosphatase* 159 U/L (40-150); Anion Gap 9 mEq/L (7-15); Aspartate Amino Transferase* 25 U/L (12-35); Bilirubin Total* 1.2 mg/dL (0.1-1.5); Carbon Dioxide* 30 mmol/L (20-32); Creatinine* 1.7 mg/dL (0.5-1.5); Est. Creatinine Clearance* 22.56; Estimated Glomerular Filt Rate 31 ml/min; Total Protein* 7.5 g/dL (6.0-8.3)
[2023-04-22 07:03] LABS: Alanine Aminotransferase* 18 U/L (4-35); Blood Urea Nitrogen* 54 mg/dL (7-30); Glucose* 84 mg/dL (60-115); Magnesium* 2.2 mg/dL (1.5-2.6)
[2023-04-22 07:05] LABS: C Reactive Protein* 4.4 mg/dL (0.5-1.0)
[2023-04-22 07:19] LABS: Troponin I* 0.18 ng/mL (0.01-0.04)
[2023-04-22] MEDS: MORPHINE 4 MG/ML INJ IVP ×3 (08:45→20:31)
[2023-04-22] MEDS: POTASSIUM CHLORIDE 10 MEQ CAPSULE ER 20 MEQ PO (08:46)
[2023-04-22] MEDS: buPROPion XL 150 MG TABLET 300 MG PO (08:46)
[2023-04-22] MEDS: SENNOSIDES/DOCUSATE TABLET 2 TAB PO (08:46)
[2023-04-22] MEDS: TORSEMIDE 20 MG TABLET 60 MG PO ×2 (08:46→16:24)
[2023-04-22] MEDS: METOPROLOL SUCCINATE (XL) 50 MG TAB 25 MG PO ×2 (08:47→20:23)
[2023-04-22] MEDS: APIXABAN 5 MG TABLET PO ×2 (08:47→20:23)
[2023-04-22] MEDS: HYDROXYCHLOROQUINE 200 MG TABLET 400 MG PO (08:47)
[2023-04-22] MEDS: FERROUS SULFATE 325 MG TABLET 650 MG PO (08:47)
[2023-04-22] MEDS: CITALOPRAM HYDROBROMIDE 20 MG TABLET PO (08:47)
[2023-04-22] MEDS: OMEPRAZOLE 20 MG CAPSULE DR PO (08:47)
[2023-04-22] MEDS: predniSONE 5 MG TABLET PO (08:48)
[2023-04-22] MEDS: SODIUM CHLORIDE 0.9 % (FLUSH) 10 ML SYRINGE 5 ML IVF ×2 (08:49→20:32)
[2023-04-22] MEDS: polyethylene glycoL 238 GM BULK BOTTLE PO (09:26)
--- NOTE | 2023-04-22 11:03 | P.IMPN_ITS ---
Progress Note: A&P Assessment and plan (1) Splenic infarct: Problem details: -pain management. Conservative care at this time. -already on anticoagulation Status: Acute (2) Hypoxia: Problem details: History of 1 year of hypoxia requiring oxygen supplementation with following heart valve surgery in September of 2021. Now with mild hypoxia which has resolved with diuresis. Likely this is mild heart failure exacerbation combined with underlying sleep apnea and some tolerance of hypoxia. Increase torsemide from 60-80 mg daily with close outpatient follow-up Status: Acute (3) CHF (congestive heart failure): Problem details: Mild exacerbation on this admission. Increase torsemide with close outpatient follow-up Status: Acute (4) CKD (chronic kidney disease) stage 4, GFR 15-29 ml/min: Problem details: Stable Status: Acute (5) Cardiorenal syndrome without renal failure: Problem details: -followed by [place]. Stage IV CKD, heart failure, cardiorenal, hypertensive nephrosclerosis. Status: Acute (6) Constipation: Problem details: -acute -Severe fecal burden within the cecum noted on CT -Senna po ordered with miralax cleanse in the am Status: Acute (7) EDITH (obstructive sleep apnea): Problem details: -compliant. follows with sleep medicine/[place] Status: Acute (8) Atrial fibrillation: Problem details: - on Eliquis, rate control with Metoprolol Status: Acute (9) Anemia in chronic kidney disease: Problem details: - Likely from chronic hypertension, chronic NSAID use. Baseline Creatinine 1.8 - historically iron resistant, follows with Hematology, initiated Aranesp injections 01/29. Goal hemoglobin > 8. Has a standing blood transfusion ordered at [facility] - typically receives 120 mg of IV Lasix after blood when transfused Status: Acute (10) Collagenous colitis: Problem details: Not having symptoms of colitis at this time Status: Acute (11) History of mitral valve replacement: Problem details: - 09/28 at [place]. Mitral valve replaced with 29 millimeter [place] epic tissue valve Status: Acute (12) Hx of tricuspid valve repair: Problem details: - known severe TR; valve repaired in 09/28 - severe TR noted again on 03/31 TTE Status: Acute Plan Continue in hospital for symptomatic management of heart failure, hypoxia, splenic infarct. Probable discharge to home tomorrow if doing well Time Spent With Patient Total time spent: Total time spent today is 60 minutes, 45 minutes in coordination of care and discussing with patient and other providers ongoing management of heart disease, kidney disease, hypoxia, splenic infarct, constipation Subjective Date Seen: 04/22/23 Interval history: Ms. Chen is a medically complex 77 y.o. 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 Feels like a burn and bloat in her LUQ. She thought it felt like a bowel blockage so she took some laxatives. She has been eating normally though does report chronic poor appetite. she had normal appearing daily BMs. This didn't really help her symptoms. She hasn't felt newly short of breath or sick. She feels she isn't taking deep breaths b/c a deep breath increases her pain. Two days prior to admission she took 3 bisacodyl tablets and thought she had good results from this but it did not help her pain. In the emergency department evaluation showed that she had extensive stool burden in her colon and a splenic infarct. The pain was thought more likely due to the splenic infarct though constipation could also be contributing. She has not had a fever. No other significant symptoms of illness. She reports she has had a poor appetite since September of 2021 when she had heart surgery. Following that heart surgery she had renal failure was on dialysis for months. She sees her soil fertility specialist regularly for management of her kidney disease and associated anemia. She also required oxygen until August of this year. She has been on torsemide 60 mg daily for management of her volume status. This is been a relatively stable dose for her though occasionally gets adjusted based on her weight and her edema. This morning she reports feeling fine other than left-sided abdominal pain which remains constant but not severe. She was able to eat breakfast today. She is now receiving laxatives to address her large stool burden in her colon. She also received diuretics last night to address what appeared to be hypoxia from mild heart failure. This morning I have weaned her off oxygen with her oxygen saturations in the low 90s on room air. All Exam Narrative: Exam Narrative: She is alert and appears in no distress. She is oriented to her circumstances and gives her own history in excellent detail. Respirations are clear to auscultation with a rare basilar crackle. No wheezing. Cardiovascular: S1, S2, regular rate and rhythm. 2/6 systolic murmur. No gallop or rub. Abdomen: Bowel sounds active. Abdomen is soft with mild left upper quadrant tenderness and no mass. Extremities without edema. Const: Vital Signs, click to edit/add: Vital Signs - 24 hr 04/21/23 13:11 04/21/23 14:00 04/21/23 14:00 Temperature 97.5 F L Pulse Rate 70 Pulse Rate [Pulse Oximeter] 81 Respiratory Rate 16 Blood Pressure Blood Pressure [Le ft Upper Arm] 134/88 Blood Pressure [Ri ght Arm] Pulse Oximetry 96 94 95 Oxygen Delivery Me thod Room Air Nasal Cannula Oxygen Flow Rate 1 04/21/23 14:02 04/21/23 14:03 04/21/23 14:15 Temperature Pulse Rate 68 65 68 Pulse Rate [Pulse Oximeter] Respiratory Rate Blood Pressure 131/75 Blood Pressure [Le ft Upper Arm] Blood Pressure [Ri ght Arm] Pulse Oximetry 95 95 94 Oxygen Delivery Me thod Nasal Cannula Nasal Cannula Oxygen Flow Rate 1 1 04/21/23 14:30 04/21/23 14:50 04/21/23 14:55 Temperature Pulse Rate 67 69 64 Pulse Rate [Pulse Oximeter] Respiratory Rate Blood Pressure 119/80 Blood Pressure [Le ft Upper Arm] Blood Pressure [Ri ght Arm] Pulse Oximetry 95 92 93 Oxygen Delivery Me thod Nasal Cannula Nasal Cannula Oxygen Flow Rate 1 1 04/21/23 15:00 04/21/23 15:25 04/21/23 15:30 Temperature Pulse Rate 74 88 76 Pulse Rate [Pulse Oximeter] Respiratory Rate Blood Pressure Blood Pressure [Le ft Upper Arm] Blood Pressure [Ri ght Arm] Pulse Oximetry 89 89 88 Oxygen Delivery Me thod Nasal Cannula Nasal Cannula Oxygen Flow Rate 1 1 04/21/23 15:45 04/21/23 16:00 04/21/23 16:12 Temperature Pulse Rate 64 65 61 Pulse Rate [Pulse Oximeter] Respiratory Rate Blood Pressure 122/66 Blood Pressure [Le ft Upper Arm] Blood Pressure [Ri ght Arm] Pulse Oximetry 96 92 96 Oxygen Delivery Me thod Nasal Cannula Nasal Cannula Nasal Cannula Oxygen Flow Rate 1 1 1 04/21/23 16:15 04/21/23 16:30 04/21/23 16:45 Temperature Pulse Rate 69 60 66 Pulse Rate [Pulse Oximeter] Respiratory Rate Blood Pressure Blood Pressure [Le ft Upper Arm] Blood Pressure [Ri ght Arm] Pulse Oximetry 96 97 97 Oxygen Delivery Me thod Nasal Cannula Nasal Cannula Nasal Cannula Oxygen Flow Rate 1 1 1 04/21/23 17:06 04/21/23 17:12 04/21/23 17:13 Temperature Pulse Rate 67 66 64 Pulse Rate [Pulse Oximeter] Respiratory Rate Blood Pressure 132/75 Blood Pressure [Le ft Upper Arm] Blood Pressure [Ri ght Arm] Pulse Oximetry 97 99 98 Oxygen Delivery Me thod Nasal Cannula Nasal Cannula Nasal Cannula Oxygen Flow Rate 1 1 1 04/21/23 17:15 04/21/23 17:30 04/21/23 17:45 Temperature Pulse Rate 65 66 65 Pulse Rate [Pulse Oximeter] Respiratory Rate Blood Pressure Blood Pressure [Le ft Upper Arm] Blood Pressure [Ri ght Arm] Pulse Oximetry 96 93 97 Oxygen Delivery Me thod Nasal Cannula Nasal Cannula Nasal Cannula Oxygen Flow Rate 1 1 1 04/21/23 18:00 04/21/23 18:15 04/21/23 18:35 Temperature Pulse Rate 63 59 L Pulse Rate [Pulse Oximeter] Respiratory Rate Blood Pressure Blood Pressure [Le ft Upper Arm] Blood Pressure [Ri ght Arm] Pulse Oximetry 96 98 93 Oxygen Delivery Me thod Nasal Cannula Nasal Cannula Oxygen Flow Rate 1 1 04/21/23 18:35 04/21/23 18:35 04/21/23 18:35 Temperature 97.3 F L 97.3 F L Pulse Rate Pulse Rate [Pulse Oximeter] 73 73 Respiratory Rate 18 16 Blood Pressure Blood Pressure [Le ft Upper Arm] Blood Pressure [Ri ght Arm] 135/85 135/85 Pulse Oximetry 93 93 93 Oxygen Delivery Me thod Nasal Cannula Nasal Cannula Nasal Cannula Oxygen Flow Rate 1 1 1 04/21/23 21:54 04/21/23 23:00 04/21/23 23:00 Temperature 97.9 F Pulse Rate 66 Pulse Rate [Pulse Oximeter] 63 Respiratory Rate 20 Blood Pressure Blood Pressure [Le ft Upper Arm] Blood Pressure [Ri ght Arm] 123/72 Pulse Oximetry 94 94 Oxygen Delivery Me thod Nasal Cannula Oxygen Flow Rate 1 04/21/23 23:00 04/22/23 02:26 04/22/23 03:50 Temperature 97.8 F Pulse Rate 65 Pulse Rate [Pulse Oximeter] 62 Respiratory Rate 20 16 Blood Pressure Blood Pressure [Le ft Upper Arm] Blood Pressure [Ri ght Arm] 108/67 Pulse Oximetry 94 93 Oxygen Delivery Me thod Nasal Cannula Nasal Cannula Oxygen Flow Rate 0.5 1 04/22/23 07:40 04/22/23 07:40 04/22/23 07:40 Temperature 97.8 F Pulse Rate Pulse Rate [Pulse Oximeter] 67 Respiratory Rate 18 18 Blood Pressure Blood Pressure [Le ft Upper Arm] Blood Pressure [Ri ght Arm] 115/75 Pulse Oximetry 95 95 95 Oxygen Delivery Me thod Nasal Cannula Nasal Cannula Oxygen Flow Rate 1 1 Documenting provider has reviewed patient's vital signs: yes Labs Labs: Laboratory Results - last 24 hr 04/21/23 04/21/23 04/21/23 13:15 13:18 13:30 WBC 7.64 RBC 3.49 L Hgb 10.4 L Hct 33.3 MCV 95 MCH 30 MCHC 31 L RDW Coeff of Estrella 20.6 H Plt Count 203 Neut % (Auto) 79.1 H Lymph % (Auto) 7.9 L [place] % (Auto) 10.1 Eos % (Auto) 2.1 Baso % (Auto) 0.5 Neut # (Auto) 6.00 Lymph # (Auto) 0.60 L [place] # (Auto) 0.80 Eos # (Auto) 0.16 Baso # (Auto) 0.04 Abs Immat Gran (auto) 0.02 Imm/Tot Granulo (auto) 0.3 Diff Slide Review Acceptable Review INR 1.40 H APTT 35 H VBG pH VBG pCO2 VBG pO2 VBG HCO3 Sodium 138 Potassium 4.6 Chloride 102 Carbon Dioxide 26 Anion Gap 10 BUN 56 H Creatinine 1.6 H Estimated Creat Clear Estimated GFR 33 Glucose 124 H Lactate Calcium 9.2 Magnesium Total Bilirubin 1.6 H AST 31 ALT 19 Alkaline Phosphatase 188 H Troponin I 0.14 H* C-Reactive Protein NT-Pro-B Natriuret Pep 43531 Total Protein 8.1 Albumin 4.8 Lipase 158 Urine Color Urine Appearance Urine pH Ur Specific [place] Urine Protein Urine Glucose (UA) Urine Ketones Urine Blood Urine Nitrite Urine Bilirubin Urine Urobilinogen Ur Leukocyte Esterase Urine RBC Urine WBC Ur Squamous Epith Cells Urine Bacteria SARS-CoV-2 (PCR) Negative SARS-CoV-2 Influenza Type A (PCR) Negative PCR FLU A Influenza Type B (PCR) Negative PCR FLU B Lab Acknowledgement POC Creatinine 1.8 H 04/21/23 04/21/23 04/21/23 15:09 15:30 16:12 WBC RBC Hgb Hct MCV MCH MCHC RDW Coeff of [place] Plt Count Neut % (Auto) Lymph % (Auto) [place] % (Auto) Eos % (Auto) Baso % (Auto) Neut # (Auto) Lymph # (Auto) [place] # (Auto) Eos # (Auto) Baso # (Auto) Abs Immat Gran (auto) Imm/Tot Granulo (auto) Diff Slide Review INR APTT VBG pH VBG pCO2 VBG pO2 VBG HCO3 Sodium Potassium Chloride Carbon Dioxide Anion Gap BUN Creatinine Estimated Creat Clear Estimated GFR Glucose Lactate Calcium Magnesium Total Bilirubin AST ALT Alkaline Phosphatase Troponin I 0.13 H* C-Reactive Protein NT-Pro-B Natriuret Pep Total Protein Albumin Lipase Urine Color Yellow Urine Appearance Clear Urine pH 5.5 Ur Specific [place] <= 1.005 Urine Protein Negative Urine Glucose (UA) Negative Urine Ketones Negative Urine Blood Negative Urine Nitrite Negative Urine Bilirubin Negative Urine Urobilinogen 0.2 Ur Leukocyte Esterase Negative Urine RBC 2-5 A Urine WBC 2-5 Ur Squamous Epith Cells None Urine Bacteria None SARS-CoV-2 (PCR) Influenza Type A (PCR) Influenza Type B (PCR) Lab Acknowledgement Test Added POC Creatinine 04/21/23 04/22/23 16:55 06:11 WBC 7.11 RBC 3.29 L Hgb 9.8 L Hct 32.0 L MCV 97 MCH 30 MCHC 31 L RDW Coeff of [place]rella Plt Count 214 Neut % (Auto) Lymph % (Auto) [place] % (Auto) Eos % (Auto) Baso % (Auto) Neut # (Auto) Lymph # (Auto) [place] # (Auto) Eos # (Auto) Baso # (Auto) Abs Immat Gran (auto) Imm/Tot Granulo (auto) Diff Slide Review INR APTT VBG pH 7.351 VBG pCO2 57 H VBG pO2 26.0 VBG HCO3 31 H Sodium 139 Potassium 4.3 Chloride 100 Carbon Dioxide 30 Anion Gap 9 BUN 54 H Creatinine 1.7 H Estimated Creat Clear 22.56 Estimated GFR 31 Glucose 84 Lactate 1.0 Calcium 9.0 Magnesium 2.2 Total Bilirubin 1.2 AST 25 ALT 18 Alkaline Phosphatase 159 H Troponin I 0.18 H* C-Reactive Protein 4.4 H NT-Pro-B Natriuret Pep Total Protein 7.5 Albumin 4.4 Lipase Urine Color Urine Appearance Urine pH Ur Specific [place] Urine Protein Urine Glucose (UA) Urine Ketones Urine Blood Urine Nitrite Urine Bilirubin Urine Urobilinogen Ur Leukocyte Esterase Urine RBC Urine WBC Ur Squamous Epith Cells Urine Bacteria SARS-CoV-2 (PCR) Influenza Type A (PCR) Influenza Type B (PCR) Lab Acknowledgement Test Added POC Creatinine
--- NOTE | 2023-04-22 11:36 | REH.OT ---
Orders received for OT eval and treat. Patient denied need for OT and declined evaluation. Per PT, patient moving well.
--- NOTE | 2023-04-22 18:03 | PC.NURSE ---
Pt alert and oriented. Pt had pain ranging from 0-10 see EMAR for intervention. Pt independent with 4ww. Pt had pain/tenderness in the?right upper and right lower quadrant.?
[2023-04-23 03:00] VITALS: BP 114/72; PULSE 67; RESP 18; TEMP 36.8; O2SAT 91
[2023-04-23] MEDS: LEVOTHYROXINE 125 MCG TABLET PO (05:58)
[2023-04-23] MEDS: MORPHINE 4 MG/ML INJ IVP (05:59)
[2023-04-23 06:21] LABS: Basophils Absolute Auto 0.04 K/uL (0.00-0.30); Basophils Percent Auto 0.8 % (0.0-3.0); Eosinophils Absolute Auto 0.14 K/uL (0.00-0.50); Eosinophils Percent Auto 2.7 % (0.0-7.0); Hematocrit 28.5 % (33.0-51.0); Immature Granulocytes Abs Auto 0.01 K/uL (0.00-0.30); Immature Granulocytes Pct Auto 0.2 %; Lymphocytes Percent Auto 16.7 % (20-44); Mean Corpuscular HGB Conc 32 gm/dL (32-36); Mean Corpuscular Hemoglobin 30 pg (26-34); Mean Corpuscular Volume 96 fL (80-100); Neutrophils Absolute Auto 3.38 K/uL (1.7-7.0); Neutrophils Percent Auto 65.6 % (42.0-72.0); Platelet Count* 194 K/uL (140-440); RDW Coefficient of Variation % 20.6 % (11.5-15.5); Red Blood Count 2.98 m/uL (4.00-5.20); White Blood Count* 5.15 K/uL (4.50-11.00)
[2023-04-23 06:25] LABS: Slide Review Reflex No
[2023-04-23 06:41] LABS: Chloride* 100 mmol/L (96-114); Sodium* 136 mmol/L (135-149)
[2023-04-23 06:42] LABS: Potassium* 3.8 mmol/L (3.6-5.1)
[2023-04-23 06:44] LABS: Creatinine* 1.7 mg/dL (0.5-1.5); Est. Creatinine Clearance* 22.56; Estimated Glomerular Filt Rate 31 ml/min
[2023-04-23 06:45] LABS: Anion Gap 8 mEq/L (7-15); Blood Urea Nitrogen* 49 mg/dL (7-30); Calcium* 8.6 mg/dL (8.4-10.6); Carbon Dioxide* 28 mmol/L (20-32); Glucose* 80 mg/dL (60-115)
[2023-04-23 07:00] VITALS: BP 105/58; PULSE 83; RESP 18; TEMP 36.4; O2SAT 90; O2SAT 91
[2023-04-23] MEDS: ACETAMINOPHEN 325 MG TABLET PO (07:45)
--- NOTE | 2023-04-23 08:19 | PC.NURSE ---
Patient pleasant, alert and cooperative. Ambulated independently in room. ?PRN Morphine given for left abdomen pain?rated 10/17. VSS.?
[2023-04-23] MEDS: SENNOSIDES/DOCUSATE TABLET 2 TAB PO (09:00)
[2023-04-23] MEDS: buPROPion XL 150 MG TABLET 300 MG PO (09:00)
[2023-04-23] MEDS: FERROUS SULFATE 325 MG TABLET 650 MG PO (09:00)
[2023-04-23] MEDS: TORSEMIDE 20 MG TABLET 80 MG PO (09:00)
[2023-04-23] MEDS: POTASSIUM CHLORIDE 10 MEQ CAPSULE ER 20 MEQ PO (09:00)
[2023-04-23] MEDS: HYDROXYCHLOROQUINE 200 MG TABLET 400 MG PO (09:01)
[2023-04-23] MEDS: OMEPRAZOLE 20 MG CAPSULE DR PO (09:01)
[2023-04-23] MEDS: predniSONE 5 MG TABLET PO (09:01)
[2023-04-23] MEDS: APIXABAN 5 MG TABLET PO (09:01)
[2023-04-23] MEDS: CITALOPRAM HYDROBROMIDE 20 MG TABLET PO (09:01)
[2023-04-23] MEDS: METOPROLOL SUCCINATE (XL) 50 MG TAB 25 MG PO (09:06)
--- NOTE | 2023-04-23 12:16 | PC.NURSE ---
Discharge Note: Pt friendly and cooperative, able to verbalize needs and moves independently throughout her room. VS WNL and LS COA. Pt c/o 08/17 LUQ pain, Tylenol given PRN. She was advanced to regular diet without difficulty. She was discharged to home in the care of her daughter. Pt verbalized understanding of discharge instructions and follow up appointments.
--- NOTE | 2023-04-23 12:29 | PM.DS1 ---
DS: Providers Provider Date Seen: 04/23/23 Date of admission: 04/21/23 18:22 Primary care physician: Alcides Gonzalez MD Admitting Clinician: Giselle Mclaughlin MD Attending Physician on discharge: Gianfranco Maldonado MD Date of Discharge: 04/23/23 DS: Diagnosis Discharge Diagnosis (1) Splenic infarct: Status: Acute Problem details: -pain management. Treat with low-dose oxycodone. Caution about opioids due to her constipation and hypoxia -already on anticoagulation (2) Hypoxia: Status: Acute Problem details: History of 1 year of hypoxia requiring oxygen supplementation with following heart valve surgery in September of 2021. Patient was prescribed oxygen until August of this year. Since then she has purchased her own home oxygen which she uses as needed for times when she is more active. She declines my offer to prescribe oxygen. Now with mild hypoxia which has improved with diuresis. Likely this is mild heart failure exacerbation combined with underlying sleep apnea and some tolerance of hypoxia. Increase torsemide from 60-80 mg daily with close outpatient follow-up (3) Constipation: Status: Acute Problem details: Patient normally does not have constipation due to her colitis. Had fairly severe constipation on this admission and had a good response to colon prep with multiple doses of MiraLax (4) Cardiorenal syndrome without renal failure: Status: Acute Problem details: -followed by [facility]. Stage IV CKD, heart failure, cardiorenal, hypertensive nephrosclerosis. Has outpatient follow-up with Dr. Agarwal in a few weeks (5) CHF (congestive heart failure): Status: Acute Problem details: Mild exacerbation on this admission. Increase torsemide with close outpatient follow-up (6) Collagenous colitis: Status: Acute Problem details: Not having symptoms of colitis at this time (7) EDITH (obstructive sleep apnea): Status: Acute Problem details: -compliant with CPAP. follows with sleep medicine/kapaa (8) Atrial fibrillation: Status: Acute Problem details: - on Eliquis, rate control with Metoprolol (9) Anemia in chronic kidney disease: Status: Acute Problem details: - Likely from chronic hypertension, chronic NSAID use. Baseline Creatinine 1.8 - historically iron resistant, follows with Hematology, initiated Aranesp injections 01/29. Goal hemoglobin > 8. Has a standing blood transfusion ordered at [facility] [place] - typically receives 120 mg of IV Lasix after blood when transfused (10) Diastolic congestive heart failure, NYHA class 3: Status: Acute Problem details: - weight on admission 146 - goal weight is 145 - typically patient takes demedex/torsemide 60mg qam, will take another 60mg if needed in the late afternoon Final Impressions: Mar -Normal left ventricular size, normal wall thickness, mildly reduced global systolic function, calculated EF of 44 %. -Right ventricular cavity size is severely enlarged, global systolic RV function is severely reduced. -RV base 5.2cm and mid 4.6cm. -Severely enlarged left atrium. -The aortic valve is sclerotic, no stenosis and mild regurgitation. -The mitral valve is S/P #29mm [facility] Epic 10/07/2021; The bioprosthetic MVR is well-seated and stable., mild mitral regurgitation. -The peak and mean transmitral gradients are 23.4 and 6.1mmHg respectively (heart rate 64bpm). -Tricuspid valve is S/P TV repair with Annular Ring. -Severe tricuspid regurgitation. - The peak and mean gradients are 3.8 and 2.4 mmHg respectively. PISA EROA = 0.62cm2 and regurgitation volume 58ml Systolic flow reversal in the hepatic veins. -Mildly increased estimated pulmonary pressures by tricuspid regurgitation velocity and right atrial pressure (32 mmHg plus RAP). DS: Summary Hospital Course Hospital Course: Ms. Chen is a medically complex 77 y.o. 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 Feels like a burn and bloat in her LUQ. She thought it felt like a bowel blockage so she took some laxatives. She has been eating normally though does report chronic poor appetite. she had normal appearing daily BMs. This didn't really help her symptoms. She hasn't felt newly short of breath or sick. She feels she isn't taking deep breaths b/c a deep breath increases her pain. Two days prior to admission she took 3 bisacodyl tablets and thought she had good results from this but it did not help her pain. In the emergency department evaluation showed that she had extensive stool burden in her colon and a splenic infarct. The pain was thought more likely due to the splenic infarct though constipation could also be contributing. She has not had a fever. No other significant symptoms of illness. She reports she has had a poor appetite since September of 2021 when she had heart surgery. Following that heart surgery she had renal failure was on dialysis for months. She sees her document design specialist regularly for management of her kidney disease and associated anemia. She also required oxygen until August of this year. She has been on torsemide 60 mg daily for management of her volume status. This is been a relatively stable dose for her though occasionally gets adjusted based on her weight and her edema. This morning she reports feeling fine other than left-sided abdominal pain which remains constant but not severe. She was able to eat breakfast today. She is now receiving laxatives to address her large stool burden in her colon. She also received diuretics last night to address what appeared to be hypoxia from mild heart failure. Yesterday morning I weaned her off oxygen with her oxygen saturations in the low 90s on room air. Overnight she was put back on oxygen. She has portable home oxygen that she uses when she goes out and is active at home. She does not have home oxygen paid for by Medicare and declines my offer to prescribe that for her. She reports her breathing is at baseline and does not want any change to her current plan of respiratory support. Status at Discharge Functional status at discharge: independent ambulation Overall status at discharge: patient is progressing back to baseline Time Spent with Patient Time attestation: Total time spent providing and/or coordinating discharge services: 40 minutes Time spent: Greater than 30 minutes Exam Narrative: Exam Narrative: She is alert appears in no distress. She is breathing comfortably on room air with O2 sats in the low 90s and upper 80s. Respirations are clear to auscultation except for a few fine basilar crackles. No wheezing. Cardiovascular: S1, S2, irregular rhythm. Abdomen is soft with mild left-sided tenderness. No mass or peritonitis. Extremities without edema. Const: Vital Signs, click to edit/add: Vital Signs - 24 hr 04/22/23 14:40 04/22/23 14:40 04/22/23 14:40 Temperature 98.8 F Pulse Rate Pulse Rate [Pulse Oximeter] 71 Respiratory Rate 16 16 Blood Pressure [Ri ght Arm] 97/70 Pulse Oximetry 91 91 91 Oxygen Delivery Me thod Room Air Room Air Oxygen Flow Rate 0 04/22/23 15:21 04/22/23 19:00 04/22/23 23:00 Temperature 98.2 F 98.3 F Pulse Rate 69 Pulse Rate [Pulse Oximeter] 63 65 Respiratory Rate 18 18 Blood Pressure [Ri ght Arm] 111/61 101/84 Pulse Oximetry 92 94 Oxygen Delivery Me thod Nasal Cannula Nasal Cannula Oxygen Flow Rate 1 1 04/22/23 23:00 04/22/23 23:00 04/22/23 23:00 Temperature Pulse Rate Pulse Rate [Pulse Oximeter] 59 L Respiratory Rate 18 Blood Pressure [Ri ght Arm] Pulse Oximetry 94 94 Oxygen Delivery Me thod Nasal Cannula Oxygen Flow Rate 1 04/22/23 23:00 04/23/23 03:00 04/23/23 07:00 Temperature 98.3 F Pulse Rate 59 L Pulse Rate [Pulse Oximeter] 67 Respiratory Rate 18 Blood Pressure [Ri ght Arm] 114/72 Pulse Oximetry 91 90 Oxygen Delivery Me thod Nasal Cannula Oxygen Flow Rate 1 04/23/23 07:00 04/23/23 07:00 04/23/23 07:00 Temperature 97.5 F L Pulse Rate Pulse Rate [Pulse Oximeter] 83 83 Respiratory Rate 18 18 18 Blood Pressure [Ri ght Arm] 105/58 L Pulse Oximetry 91 91 Oxygen Delivery Me thod Nasal Cannula Nasal Cannula Oxygen Flow Rate 0.5 0.5 Documenting provider has reviewed patient's vital signs: yes DS: Data Data Completed and Pending Completed studies during hospitalization: Procedures Introduction of Other Gas into Respiratory Tract, Via Natural or Artificial Opening (03/31/22) Transfusion of Nonautologous Red Blood Cells into Peripheral Vein, Percutaneous Approach (03/31/22) Labs on day of discharge: Labs from last 24 hours 04/23/23 06:05 WBC 5.15 RBC 2.98 L Hgb 9.0 L Hct 28.5 L MCV 96 MCH 30 MCHC 32 RDW Coeff of Estrella 20.6 H Plt Count 194 Neut % (Auto) 65.6 Lymph % (Auto) 16.7 L Johnston % (Auto) 14.0 H Eos % (Auto) 2.7 Baso % (Auto) 0.8 Neut # (Auto) 3.38 Lymph # (Auto) 0.90 Johnston # (Auto) 0.70 Eos # (Auto) 0.14 Baso # (Auto) 0.04 Abs Immat Gran (auto) 0.01 Imm/Tot Granulo (auto) 0.2 Sodium 136 Potassium 3.8 Chloride 100 Carbon Dioxide 28 Anion Gap 8 BUN 49 H Creatinine 1.7 H Estimated Creat Clear 22.56 Estimated GFR 31 Glucose [address] scan - abdomen: Radiologist's impression: INDICATION: Left upper quadrant pain. Difficult urination. TECHNIQUE: CT abdomen and pelvis acquired with 74 mL Isovue 370 IV contrast. COMPARISON: CT abdomen/pelvis dated 04/02/2022. FINDINGS: Lower chest: Bibasilar subsegmental atelectasis/fibrotic changes. No focal consolidation. Liver: Heterogeneous enhancement of the liver parenchyma. 0.6 cm hypervascular lesion along the anterior capsule of segment 3 (series 2, image 54). Gallbladder and bile ducts: Unremarkable. Pancreas: Mildly atrophic. Spleen: Irregular wedge-shaped hypoenhancement in the posterior spleen measuring 3.1 x 3.0 cm, worrisome for infarct. Splenule is noted. Adrenal glands: Unremarkable. Kidneys: Kidneys enhance symmetrically, without hydronephrosis. Mildly atrophic left kidney. Retroperitoneum: Few scattered prominent retroperitoneal lymph nodes, stable. No new lymphadenopathy. Bowel and mesentery: Bowel is not obstructed. No significant ascites. No pneumoperitoneum. Severe fecal burden within the cecum. Bladder: Unremarkable for degree of distension. Reproductive organs: Posthysterectomy. Pelvic lymph nodes: No lymphadenopathy. Vessels: Atherosclerotic calcifications. The visualized portions of the splenic artery and splenic vein are grossly patent. Abdominal wall: No acute abdominal wall abnormality. Bones: Multilevel degenerative changes of the spine. Bones are osteopenic. Moderate to severe anterior compression fracture of T11, new since prior study. IMPRESSION: 1. Posterior splenic infarct. 2. Heterogeneous enhancement of the liver parenchyma is nonspecific, may reflect hepatitis. Recommend correlation with liver function tests. 3. Small 0.6 cm hypervascular lesion along the anterior capsule of segment 3 of the liver. This could be further evaluated with liver MRI, on a nonemergent basis. 4. Age-indeterminate moderate to severe anterior compression fracture of the T11 vertebral body, new since prior study. Recommend correlation with neurologic exam and point tenderness at this level. 5. Severe fecal burden within the cecum. Discharge Plan Discharge Disposition: Home, Self-Care Date of Admission: 04/21/23 18:22 Attending Provider on Discharge: Valentino Maldonado Primary Care Provider: Alcides Gonzalez Condition: Improved Anticipated Discharge Date/Time: 04/23/23 09:01 Discharge Medications: New sennosides-docusate sodium [Stool Softener-Laxative] 8.6-50 mg Tablet 2 tab PO BID PRN (Reason: Constipation) Qty: 100 0RF oxycodone 5 mg tablet 2.5 mg PO Q4H PRN (Reason: pain) Qty: 20 0RF Continued apixaban 5 mg tablet 5 mg PO BID hydroxychloroquine 200 mg tablet 400 mg PO DAILY ferrous sulfate 325 mg (65 mg iron) tablet 650 mg PO DAILY prednisone 5 mg tablet 5 mg PO DAILY ascorbic acid (vitamin C) 1,000 mg tablet 1,000 mg PO DAILY potassium chloride 20 mEq tablet,ER particles/crystals 20 meq PO DAILY metoprolol succinate 50 mg tablet extended release 24 hr 25 mg PO BID albuterol sulfate [Ventolin HFA] 90 mcg/actuation HFA aerosol inhaler 2 puff inhalation Q4-6H PRN fluticasone furoate-vilanterol [Breo Ellipta] 200-25 mcg/dose blister with device 1 inh inhalation DAILY bupropion HCl 300 mg tablet extended release 24 hr 300 mg PO QAM Qty: 90 1RF Entresto 24-26 mg tablet 1 tab PO BID levothyroxine [Synthroid] 125 mcg tablet 125 mcg PO DAILY Qty: 90 2RF omeprazole 20 mg capsule,delayed release(DR/EC) 20 mg PO DAILY Qty: 90 2RF citalopram 20 mg tablet 20 mg PO DAILY Qty: 90 2RF oxybutynin chloride 5 mg tablet extended release 24hr 5 mg PO QDAY Hold Instructions: pt states ineffective Changed torsemide 20 mg tablet 80 mg PO DAILY Qty: 270 1RF Rx Instructions: take 3 tabs every morning, take an extra 1-2tabs at 2pm if weight up or dyspneic Discharge Orders: Discharge Order (Routine); Ordered 04/23/23 Ordered By: Valentino Maldonado Patient Education: Oxycodone, Rapid Release (By mouth), Senna (By mouth), Heart Failure (DC), Splenic Infarction (GEN) Additional Instructions: Discussed with patient the need to use caution with opioid pain medicines due to respiratory depression affecting her chronic hypoxia and constipation. Activity Level: Activity as Tolerated Discharge Diet: Regular Follow Up Appointments: Alcides Gonzalez MD [Primary Care Provider] - 04/26/23 10:45 am (Follow-up appointment next week with basic metabolic panel drawn at appointment.) Forms: [employer] Info Instructions
== END 2023-04-23 15:14 | disposition home or self-care (01) ==
LOC: ED 17:55 → MEDSURG 18:24
PROVIDERS: Family Medicine; Admitting Provider Family Medicine; Emergency Provider Student in an Organized Health Care Education/Training Program; PCP Family Medicine; Visit Provider Family Medicine
DX: D73.5 Infarction of spleen (principal); D63.1 Anemia in chronic kidney disease; R09.02 Hypoxemia; K59.00 Constipation, unspecified; I13.0 Hypertensive heart and chronic kidney disease with heart failure and stage 1 through stage 4 chronic kidney disease, or unspecified chronic kidney disease; N18.4 Chronic kidney disease, stage 4 (severe); I50.31 Acute diastolic (congestive) heart failure; I48.91 Unspecified atrial fibrillation; J81.1 Chronic pulmonary edema; I25.5 Ischemic cardiomyopathy; G47.33 Obstructive sleep apnea (adult) (pediatric); R74.8 Abnormal levels of other serum enzymes; R79.89 Other specified abnormal findings of blood chemistry; R93.2 Abnormal findings on diagnostic imaging of liver and biliary tract; E80.7 Disorder of bilirubin metabolism, unspecified; M06.9 Rheumatoid arthritis, unspecified; I34.0 Nonrheumatic mitral (valve) insufficiency; R39.89 Other symptoms and signs involving the genitourinary system; J44.9 Chronic obstructive pulmonary disease, unspecified; D86.0 Sarcoidosis of lung; G71.00 Muscular dystrophy, unspecified; E89.0 Postprocedural hypothyroidism; F32.A Depression, unspecified; K52.831 Collagenous colitis; S22.089A Unspecified fracture of T11-T12 vertebra, initial encounter for closed fracture; R10.12 Left upper quadrant pain; Z79.01 Long term (current) use of anticoagulants; F17.201 Nicotine dependence, unspecified, in remission; Z95.2 Presence of prosthetic heart valve; Z98.890 Other specified postprocedural states; Z96.659 Presence of unspecified artificial knee joint; Z90.710 Acquired absence of both cervix and uterus; Z87.19 Personal history of other diseases of the digestive system
CPT/HCPCS: 36415; 71046; 74177; 80048; 80053; 81001; 82565; 82803; 83605; 83690; 83735; 83880; 84484; 85025; 85027; 85610; 85730; 86140; 87631; 93005; 94761; 95992; 96374; 96375; 96376; 97161; 99283; 99285; G0378; A9270; J1940; J2270; J2405; J7512; Q9967

== ENCOUNTER 2023-04-26 11:34 | Outpatient (CLI) | payer OTHER, SELFPAY | END 2023-04-26 11:35 | disposition home or self-care (01) | LOC: NFLDREF 11:37 | PROVIDERS: PCP Family Medicine; Visit Provider Family Medicine | DX: E03.9 Hypothyroidism, unspecified (principal) | CPT/HCPCS: 84439; 84443 ==

== ENCOUNTER 2023-05-27 12:55 | Outpatient (CLI) | payer OTHER, SELFPAY | END 2023-05-27 12:56 | disposition home or self-care (01) | LOC: NFLDREF 05-31 10:43 | PROVIDERS: PCP Family Medicine; Referring Provider Family Medicine; Visit Provider Internal Medicine Nephrology | DX: D63.1 Anemia in chronic kidney disease (principal); I25.5 Ischemic cardiomyopathy; I50.30 Unspecified diastolic (congestive) heart failure; N18.9 Chronic kidney disease, unspecified | CPT/HCPCS: 80069; 82043; 82570; 82728; 83540; 83550; 84550 ==

== ENCOUNTER 2023-07-01 14:00 | Outpatient (RCR) | payer OTHER, SELFPAY ==
[2023-01-14 14:33] LABS: Hematocrit 30.4 % (33.0-51.0); Hemoglobin* 9.5 gm/dL (12.0-16.0); Mean Corpuscular HGB Conc 31 gm/dL (32-36); Mean Corpuscular Hemoglobin 30 pg (26-34); Mean Corpuscular Volume 95 fL (80-100); Platelet Count* 214 K/uL (140-440); Red Blood Count 3.21 m/uL (4.00-5.20); White Blood Count* 9.57 K/uL (4.50-11.00)
[2023-01-14 14:36] LABS: Slide Review Reflex No
[2023-01-14 14:46] VITALS: BP 102/60; PULSE 70; RESP 16; TEMP 36.7; O2SAT 95
[2023-01-14] MEDS: EPOETIN ALFA 20,000 UNIT/ML VIAL 30000 UNIT SUBCUT (15:15)
[2023-01-28 14:00] VITALS: BP 123/82; PULSE 75; RESP 16; TEMP 36.6; O2SAT 99
[2023-01-28 14:27] LABS: Hemoglobin* 9.7 gm/dL (12.0-16.0)
[2023-01-28] MEDS: EPOETIN ALFA 20,000 UNIT/ML VIAL 30000 UNIT SUBCUT (15:09)
[2023-02-11 14:52] LABS: Hemoglobin* 9.7 gm/dL (12.0-16.0)
[2023-02-11 15:03] VITALS: BP 114/55; PULSE 72; RESP 16; TEMP 36.6; O2SAT 91
[2023-02-11] MEDS: EPOETIN ALFA 20,000 UNIT/ML VIAL 30000 UNIT SUBCUT (15:26)
[2023-02-25 14:21] LABS: Hematocrit 32.3 % (33.0-51.0); Mean Corpuscular HGB Conc 31 gm/dL (32-36); Mean Corpuscular Hemoglobin 30 pg (26-34); Mean Corpuscular Volume 95 fL (80-100); Platelet Count* 223 K/uL (140-440); Red Blood Count 3.39 m/uL (4.00-5.20); White Blood Count* 8.08 K/uL (4.50-11.00)
[2023-02-25 14:28] LABS: Slide Review Reflex No
[2023-02-25] MEDS: EPOETIN ALFA 20,000 UNIT/ML VIAL 30000 UNIT SUBCUT (14:46)
[2023-02-25 14:53] VITALS: BP 103/53; PULSE 75; RESP 16; TEMP 36.8; O2SAT 91
[2023-03-11 13:51] VITALS: BP 127/70; PULSE 86; RESP 16; TEMP 36.5; O2SAT 92
[2023-03-11] MEDS: EPOETIN ALFA 20,000 UNIT/ML VIAL 30000 UNIT SUBCUT (14:11)
[2023-03-25 14:06] LABS: Hematocrit 30.7 % (33.0-51.0); Hemoglobin* 9.6 gm/dL (12.0-16.0); Mean Corpuscular HGB Conc 31 gm/dL (32-36); Mean Corpuscular Hemoglobin 29 pg (26-34); Mean Corpuscular Volume 94 fL (80-100); Platelet Count* 213 K/uL (140-440); Red Blood Count 3.26 m/uL (4.00-5.20); White Blood Count* 7.99 K/uL (4.50-11.00)
[2023-03-25 14:14] VITALS: BP 101/59; PULSE 70; RESP 16; TEMP 36.9; O2SAT 91
[2023-03-25 14:17] LABS: Slide Review Reflex No
[2023-03-25] MEDS: EPOETIN ALFA 20,000 UNIT/ML VIAL 50000 UNIT SUBCUT (14:52)
[2023-04-08 14:03] LABS: Basophils Absolute Auto 0.05 K/uL (0.00-0.30); Basophils Percent Auto 0.6 % (0.0-3.0); Eosinophils Absolute Auto 0.14 K/uL (0.00-0.50); Eosinophils Percent Auto 1.6 % (0.0-7.0); Hematocrit 32.4 % (33.0-51.0); Immature Granulocytes Abs Auto 0.01 K/uL (0.00-0.30); Immature Granulocytes Pct Auto 0.1 %; Mean Corpuscular HGB Conc 31 gm/dL (32-36); Mean Corpuscular Hemoglobin 30 pg (26-34); Mean Corpuscular Volume 97 fL (80-100); Monocytes Percent Auto 9.5 % (0.0-11.0); Neutrophils Percent Auto 79.2 % (42.0-72.0); Platelet Count* 224 K/uL (140-440); RDW Coefficient of Variation % 20.5 % (11.5-15.5); Red Blood Count 3.35 m/uL (4.00-5.20); White Blood Count* 8.82 K/uL (4.50-11.00)
[2023-04-08 14:05] VITALS: BP 121/80; PULSE 79; RESP 16; TEMP 37.2; O2SAT 91
[2023-04-08 14:11] LABS: Slide Review Reflex No
[2023-04-08] MEDS: EPOETIN ALFA 10,000 UNIT/ML VIAL 10000 UNIT SUBCUT (14:39)
[2023-05-06 14:41] VITALS: BP 128/64; PULSE 70; RESP 16; TEMP 36.2; O2SAT 96
[2023-05-06 14:52] LABS: Hemoglobin* 10.2 gm/dL (12.0-16.0); Mean Corpuscular HGB Conc 31 gm/dL (32-36); Mean Corpuscular Hemoglobin 30 pg (26-34); Mean Corpuscular Volume 98 fL (80-100); Platelet Count* 233 K/uL (140-440); Red Blood Count 3.38 m/uL (4.00-5.20); White Blood Count* 7.07 K/uL (4.50-11.00)
[2023-05-06 15:01] LABS: Slide Review Reflex No
[2023-05-21 13:56] VITALS: BP 118/72; PULSE 64; RESP 16; TEMP 36.6; O2SAT 95
[2023-05-21 14:23] LABS: Hemoglobin* 9.1 gm/dL (12.0-16.0)
[2023-05-21] MEDS: EPOETIN ALFA 10,000 UNIT/ML VIAL 10000 UNIT SUBCUT (15:00)
[2023-06-03 13:02] LABS: Hemoglobin* 10.5 gm/dL (12.0-16.0)
[2023-06-03 13:14] VITALS: BP 126/89; PULSE 88; RESP 18; TEMP 36.8; O2SAT 93
--- NOTE | 2023-06-03 13:21 | ONC.NURNOTE ---
Hgb 10.5 today, discussed with Dalia Vaughan APRN and she would like to hold epo injection today and she will email Dr. Agarwal. Pt to return in 2 weeks to recheck hgb.
[2023-06-17 14:23] VITALS: BP 102/63; PULSE 18; RESP 18; TEMP 37.1; O2SAT 92
[2023-06-17 14:25] LABS: Hemoglobin* 9.4 gm/dL (12.0-16.0)
[2023-06-17] MEDS: EPOETIN ALFA 10,000 UNIT/ML VIAL 10000 UNIT SUBCUT (14:44)
[2023-07-01 14:19] LABS: Hemoglobin* 9.6 gm/dL (12.0-16.0)
[2023-07-01] MEDS: EPOETIN ALFA 10,000 UNIT/ML VIAL 10000 UNIT SUBCUT (14:38)
== END 2023-07-13 23:59 | disposition home or self-care (01) ==
LOC: CCIC 14:00
PROVIDERS: Internal Medicine Nephrology; PCP Family Medicine; Referring Provider Family Medicine; Visit Provider Clinical Nurse Specialist
DX: N18.4 Chronic kidney disease, stage 4 (severe) (principal); D63.1 Anemia in chronic kidney disease
CPT/HCPCS: 36415; 85018; 85025; 85027; 96372; 96401; J0885

== ENCOUNTER 2023-08-17 14:56 | Outpatient (CLI) | payer OTHER, SELFPAY ==
--- OUTSIDE RECORDS SUMMARY | 2023-08-19 16:05 | XMS_ITS | Referral Summary ---
Author Name Unknown Organization [facility] Address [address] [place] [id number] Care Team Providers Care Html Developer Name Role Phone Elsewhere, Pcp Primary Care Provider Unavailabl e Source Comments Patient records contain information from all sites at [facility]. For routine questions regarding patient records, call [phone] during business hours, M-F 8:00 AM - 5:00 PM Central Time. Record requests for emergency care only can be directed to [phone] at any time.[facility] Encounters Date Type Department Care Team Description 08/15/2023 Refill Department of Cardiovascular Medicine in [place], [place] [address] [place] [address] Emi Wilson APRN, C.N.P., M.S., M.S.N. Med Refill 07/09/2023 2:45 PM HEAD BONE GRINDER - 07/09/2023 11:59 PM HEAD BONE GRINDER Hospital Encounter Department of Laboratory Medicine and Pathology, [facility] in [place], [place] [address] [place] [phone] Eloy Cabrera M.D. Sarcoidosis Pulmonary (HCC) Discharge Disposition: Home or Self Care 07/09/2023 12:07 PM HEAD BONE GRINDER - 07/09/2023 2:44 PM HEAD BONE GRINDER Hospital Encounter Department of Radiology, [facility] in [place], [place] [address] [place] [phone] Eloy Cabrera M.D. Dyspnea On Exertion; Sarcoidosis Pulmonary (HCC); Acute On Chronic Diastolic (Congestive) Heart Failure (HCC) Discharge Disposition: Home or Self Care 07/09/2023 2:00 PM HEAD BONE GRINDER Office Visit Division of Pulmonary Medicine in [place], [place] [address] [place] [phone] Eloy Cabrera M.D. Sarcoidosis Pulmonary (HCC) (Primary Dx); Dyspnea On Exertion; Acute On Chronic Diastolic (Congestive) Heart Failure (HCC) 07/06/2023 11:15 AM HEAD BONE GRINDER Office Visit Division of Rheumatology in [place], [place] [address] [place] [phone] Rosa Bolton APRN, C.N.P., M.S. Arthritis Rheumatoid (HCC) (Primary Dx) 07/03/2023 Refill Division of Rheumatology in [place], [place] [address] [place] [phone] Rosa Bolton APRN, C.N.P., M.S. Med Refill 07/02/2023 2:00 PM HEAD BONE GRINDER Office Visit Department of Cardiovascular Medicine in [place], [place] [address] [place] [phone] Emi Wilson APRN, C.N.P., M.S., M.S.N. Infarction Spleen (Primary Dx); Replacement Mitral Valve Tissue; Repair Tricuspid Valve Status Post; Chronic Diastolic (Congestive) Heart Failure (HCC) 07/02/2023 8:19 AM HEAD BONE GRINDER - 07/02/2023 11:59 PM HEAD BONE GRINDER Hospital Encounter Department of Cardiovascular Diseases in [place], [place] [address] [place] [phone] Emi Wilson APRN, C.N.P., M.S., M.S.N. Replacement Mitral Valve Tissue; Infarction Spleen Discharge Disposition: Home or Self Care 06/22/2023 1:00 PM HEAD BONE GRINDER Office Visit Department of Cardiovascular Medicine in [place], [place] [address] [place] [phone] Emi Wilson APRN, C.N.P., M.S., M.S.N. 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 Chronic Diastolic (Congestive) Heart Failure (HCC) Discharge Disposition: Home or Self Care 06/21/2023 12:40 PM HEAD BONE GRINDER - 06/21/2023 1:56 PM HEAD BONE GRINDER Hospital Encounter Department of Cardiac Rehabilitation in [address] [phone] Emi Wilson APRN, C.N.P., M.S., M.S.N. Chronic Diastolic (Congestive) Heart Failure (HCC) Discharge Disposition: Home or Self Care 06/21/2023 8:30 AM HEAD BONE GRINDER - 06/21/2023 12:39 PM HEAD BONE GRINDER Hospital Encounter Department of Laboratory Medicine and Pathology, [facility] in [address] [phone] Emi Wilson APRN, C.N.P., M.S., M.S.N. Chronic Diastolic (Congestive) Heart Failure (HCC); Arthritis Rheumatoid (HCC) Discharge Disposition: Home or Self Care 06/18/2023 11:15 AM HEAD BONE GRINDER Clinical Communication Virtual Review in [address] [phone] Pre-visit Intake 06/08/2023 Refill Division of Rheumatology in [address] [phone] Rosa Bolton APRN, C.N.P., M.S. Med Refill 06/01/2023 4:00 PM HEAD BONE GRINDER External Outreach Division of Nephrology and Hypertension in [place], [place] [address] [place] [phone] Luis Agarwal Jr., D.O. 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 More than 4 times per year 03/27/2022 Do you belong to any clubs o r organizations such as presybeterian groups, unions, fraternal or athletic groups, or [...] Answer Date Recorded PHQ-2 Score 3 09/24/2021 [facility] - [...] place to sleep or slept in a senior care (including now)? No 03/27/2022 Depression Answer Date [...] Comments Blood Pressure 123/74 07/02/2023 1:51 PM HEAD BONE GRINDER Pulse 90 07/02/2023 1:51 PM HEAD BONE GRINDER Temperature 36.3 ??C (97.3 ??F) 11/14/2021 5:40 AM CD T Respiratory Rate 20 07/02/2023 10:3 9 AM HEAD BONE GRINDER Oxygen Saturation 93% 07/09/2023 1:50 PM HEAD BONE GRINDER Inhaled Oxygen Concentration - - Weight 68.5 kg (150 lb 14.5 oz) 07/02/2023 1:49 PM HEAD BONE GRINDER Height 157.7 cm (5' 2.09) 07/02/2023 1:49 PM CS T Body Mass Index 27.52 07/02/2023 1:49 PM HEAD BONE GRINDER Plan of Treatment Not on file Medical Devices Implanted Type Area [employer] Crewmember Device Identifier Shelf Expiration Date Model / Serial / Lot Rng Anulo Mtrl Cnt Trcspd 30 - [id number] - [id number] Implanted:Qty: 1 on 10/07/2021 by Clarence Gee M.D. at [facility] Cardiac Valve Prosthesis N/A: Tricuspid Valve Medtronic 05/18/2026 [id number] / [id number] / Vlv Mtrl [facility] 29 - [id number] - [id number] Implanted:Qty: 1 on 10/07/2021 by Clarence Gee M.D. at [facility] Cardiac Valve Prosthesis N/A: Mitral Valve Emerson 11/27/2024 [id number] M-00 / [id number] / Clp Hrzn Ti 6 Clp Md Rhett - [id number] Implanted:Qty: 1 on 10/07/2021 by Clarence Gee M.D. at [facility] Hardware e.g. pins/screws/ rods N/A: Chest [employer] [id number] / / J J Tib Insert Sigma 4x10.0 - [place]ichael [id number] Implanted:Qty: 1 on 11/22/2006 Knee Implant Other/Legacy - See Implant Description [employer] Description:Device Manufactu rer - J [employer]. Body Location - Other. Left. Device Status Text - [id number] [id number]. J J Sig Patella Oval 35 - [place]ichael [id number] Implanted:Qty: 1 on 11/22/2006 Knee Implant Other/Legacy - See Implant Description [employer] Description:Device Manufactu rer - J [employer] J [employer]. Body Location - Other. Left. Device Status Text - KNEE [id number]. J J Sig Fem Lugged Sz 4.0 Lt - [place]ichael [id number] Implanted:Qty: 1 on 11/22/2006 Knee Implant Other/Legacy - See Implant Description [employer] Description:Device Manufactu rer - J [employer] J Ortho. Body Location - Other. Left. Device Status Text - KNEE [id number]. J J Keel Tray Tib Mb Sz 3.0 - [place] [id number] Implanted:Qty: 1 on 11/22/2006 Knee Implant Other/Legacy - See Implant Description [employer] Description:Device Manufactu rer - J [employer] J Ortho. Body Location - Other. Left. Device Status Text - KNEE [id number]. Misc Other Misc Other Mouth Description:3 lower teeth im planted Misc Other Misc Other Mouth Description:2 teeth implants 2020 Cement Bone Large - Carmichael [id number] Implanted:Qty: 1 on 11/22/2006 Misc Other [place] Description:Device Manufactu rer - Jessica Le.. Device Status Text - [id number]. Procedures Procedure Name Priority Date/Time Associated Diagnosis Comments COMPREHENSIVE METABOLIC PANEL, S/P Routine 07/09/2023 2:54 PM HEAD BONE GRINDER Sarcoidosis Pulmonary (HCC) CBC WITHOUT DIFFERENTIAL, B Routine 07/09/2023 2:54 PM HEAD BONE GRINDER Sarcoidosis Pulmonary (HCC) 25-HYDROXYVITAMIN D2 AND D3, S Routine 07/09/2023 2:53 PM HEAD BONE GRINDER Sarcoidosis Pulmonary (HCC) 1,25-DIHYDROXYVITAMIN D, S Routine 07/09/2023 2:53 PM HEAD BONE GRINDER Sarcoidosis Pulmonary (HCC) DX CHEST AP OR PA AND LATERAL 2 VIEWS RAD - Routine (most inpatients and all outpatients) 07/09/2023 12:21 PM HEAD BONE GRINDER Dyspnea On Exertion Sarcoidosis Pulmonary (HCC) Acute On Chronic Diastolic (Congestive) Heart Failure (HCC) PULMONARY FUNCTION TESTS Routine 07/09/2023 10:44 AM HEAD BONE GRINDER Dyspnea On Exertion Sarcoidosis Pulmonary (HCC) Acute On Chronic Diastolic (Congestive) Heart Failure (HCC) (DAYNE) 2D WITH COLOR, LIMITED DOPPLER AND CONTRAST Routine 07/02/2023 10:21 AM HEAD BONE GRINDER 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) 2D LIMITED WITH COLOR AND DOPPLER Routine 06/21/2023 4:41 PM HEAD BONE GRINDER Chronic Diastolic (Congestive) Heart Failure (HCC) 6 MINUTE WALK Routine 06/21/2023 1:00 PM HEAD BONE GRINDER Chronic Diastolic (Congestive) Heart Failure (HCC) ECG Routine 06/21/2023 10:17 AM HEAD BONE GRINDER Chronic Diastolic (Congestive) Heart Failure (HCC) URIC ACID, S/P Routine 06/21/2023 9:28 AM HEAD BONE GRINDER Arthritis Rheumatoid (HCC) ASPARTATE AMINOTRANSFERASE (AST), S/P Routine 06/21/2023 9:28 AM HEAD BONE GRINDER Arthritis Rheumatoid (HCC) C-REACTIVE PROTEIN (CRP), S/P Routine 06/21/2023 9:28 AM HEAD BONE GRINDER Arthritis Rheumatoid (HCC) SEDIMENTATION RATE, B Routine 06/21/2023 9:28 AM HEAD BONE GRINDER Arthritis Rheumatoid (HCC) SODIUM, S/P Routine 06/21/2023 9:28 AM HEAD BONE GRINDER Chronic Diastolic (Congestive) Heart Failure (HCC) POTASSIUM, S/P Routine 06/21/2023 9:28 AM HEAD BONE GRINDER Chronic Diastolic (Congestive) Heart Failure (HCC) NT-PRO B-TYPE NATRIURETIC PEPTIDE (BNP), S Routine 06/21/2023 9:28 AM HEAD BONE GRINDER Chronic Diastolic (Congestive) Heart Failure (HCC) CREATININE WITH EGFR, S/P Routine 06/21/2023 9:28 AM HEAD BONE GRINDER Chronic Diastolic (Congestive) Heart Failure (HCC) BUN (BLOOD UREA NITROGEN), S/P Routine 06/21/2023 9:28 AM HEAD BONE GRINDER Chronic Diastolic (Congestive) Heart Failure (HCC) from Last 3 Months Results * (ABNORMAL) CBC without Differential (07/09/2023 2:54 PM HEAD BONE GRINDER) Hemoglobin 8.3(L) 11.6 - 15.0 g/dL 07/09/2023 3:15 PM HEAD BONE GRINDER DTL Hematocrit 26.3(L) 35.5 - 44.9 % 07/09/2023 3:15 PM HEAD BONE GRINDER DTL Erythrocytes 2.74(L) 3.92 - 5.13 x10(12)/L 07/09/2023 3:15 PM HEAD BONE GRINDER DTL MCV 96.0 78.2 - 97.9 fL 07/09/2023 3:15 PM HEAD BONE GRINDER DTL RBC Distrib Width 18.0(H) 12.2 - 16.1 % 07/09/2023 3:15 PM HEAD BONE GRINDER DTL Platelet Count 267 157 - 371 x10(9)/L 07/09/2023 3:15 PM HEAD BONE GRINDER DTL Leukocytes 6.8 3.4 - 9.6 x10(9)/L 07/09/2023 3:15 PM HEAD BONE GRINDER DTL Blood (Blood, Venous) 07/09/2023 2:54 PM HEAD BONE GRINDER 07/09/2023 3:07 PM HEAD BONE GRINDER Eloy Cabrera M.D. LAB BLOOD ADD-ON [facility] [address] [place] [address], [facility] [address] [place] [address] * (ABNORMAL) Comprehensive Metabolic Panel (07/09/2023 2:54 PM HEAD BONE GRINDER) Pathologist [facility] Potassium, S 5.2 3.6 - 5.2 mmol/L 07/09/2023 4:08 PM HEAD BONE GRINDER DTL Sodium, S 142 135 - 145 mmol/L 07/09/2023 4:08 PM HEAD BONE GRINDER DTL Chloride, S 101 98 - 107 mmol/L 07/09/2023 4:08 PM HEAD BONE GRINDER DTL Bicarbonate, S 27 22 - 29 mmol/L 07/09/2023 4:08 PM HEAD BONE GRINDER DTL Anion Gap 14 7 - 15 07/09/2023 4:08 PM HEAD BONE GRINDER DTL BUN (Blood Urea Nitrogen), S 70(H) 6 - 21 mg/dL 07/09/2023 4:08 PM HEAD BONE GRINDER DTL Creatinine 2.00(H) 0.59 - 1.04 mg/dL 07/09/2023 4:08 PM HEAD BONE GRINDER DTL Estimated GFR (eGFR) 25(L) >=60 mL/min/BS A 07/09/2023 4:08 PM HEAD BONE GRINDER DTL Comment: Estimated GFR calculated using the 2020 CKD_EPI creatinine equation. Calcium, Total, S 9.2 8.8 - 10.2 mg/dL 07/09/2023 4:08 PM HEAD BONE GRINDER DTL Glucose, S 108 70 - 140 mg/dL 07/09/2023 4:08 PM HEAD BONE GRINDER DTL Protein, Total, S 7.3 6.3 - 7.9 g/dL 07/09/2023 4:08 PM HEAD BONE GRINDER DTL Albumin, S 4.6 3.5 - 5.0 g/dL 07/09/2023 4:08 PM HEAD BONE GRINDER DTL Aspartate Aminotransferase (AST), S 27 8 - 43 U/L 07/09/2023 4:08 PM HEAD BONE GRINDER DTL Alkaline Phosphatase, S 210(H) 35 - 104 U/L 07/09/2023 4:08 PM HEAD BONE GRINDER DTL Alanine Aminotransferase (ALT), S 26 7 - 45 U/L 07/09/2023 4:08 PM HEAD BONE GRINDER DTL Bilirubin, Total, S 0.8 0.0 - 1.2 mg/dL 07/09/2023 4:08 PM HEAD BONE GRINDER DTL Blood (Blood, Venous) 07/09/2023 2:54 PM HEAD BONE GRINDER 07/09/2023 3:19 PM HEAD BONE GRINDER Eloy Cabrera M.D. LAB BLOOD ADD-ON [facility] [address] [place] [address], [facility] [address] [place] [address] * 1,25-Dihydroxyvitamin D (07/09/2023 2:53 PM HEAD BONE GRINDER) [facility] 1, 25 DIHYDROXYVITAMIN D, S 56 18 - 78 pg/mL 07/13/2023 11:56 PM HEAD BONE GRINDER [facility] Comment: ----ADDITIONAL INFORMATION---- This test was developed and its performance characteristics determined by [facility] in a manner consistent with CLIA requirements. This test has not been cleared or approved by the U.S. Food and Drug Administration. Blood (Blood, Venous) 07/09/2023 2:53 PM HEAD BONE GRINDER 07/12/2023 7:18 AM HEAD BONE GRINDER Eloy Cabrera M.D. LAB BLOOD ADD-ON Performing Organization Address [facility] Co de Phone Number [facility] [address] [place] [address] [facility] [address] [place] [address] [place] [address] * 25-Hydroxyvitamin D2 and D3 (07/09/2023 2:53 PM HEAD BONE GRINDER) [facility] 25-Hydroxy D2 5.5 ng/mL 07/13/2023 11:08 AM HEAD BONE GRINDER SDS 25-Hydroxy D3 51 ng/mL 07/13/2023 11:08 AM HEAD BONE GRINDER SDS 25-Hydroxy D Total 57 ng/mL 2023 11:08 AM HEAD BONE GRINDER [facility] Comment: Interpretation: 51-80 ng/mL (increased risk of hypercalciuria) ----REFERENCE VALUE---- 25-HYDROXY D TOTAL (D2+D3) Optimum levels in the healthy population are 20-50, patients with bone disease may benefit from higher levels within this range. ----ADDITIONAL INFORMATION---- This test was developed and its performance characteristics determined by [facility] in a manner consistent with CLIA requirements. This test has not been cleared or approved by the U.S. Food and Drug Administration. Blood (Blood, Venous) 07/09/2023 2:53 PM HEAD BONE GRINDER 07/12/2023 7:23 AM HEAD BONE GRINDER Eloy Cabrera M.D. LAB BLOOD ADD-ON Performing Organization Address [facility] Co de Phone Number [facility] [address] [place] [address] [facility] [address] [place] [address] [place] [address] * DX Chest AP or PA and Lateral 2 Views (07/09/2023 12:21 PM HEAD BONE GRINDER) Anatomical Region Laterality Modality Chest, Thoracic RST LOS, Tho racic ARZ LOS, Thoracic FLA LOS N/A Digital Radiography Impressions 07/09/2023 12:36 PM HEAD BONE GRINDER Sternotomy. Tricuspid annuloplasty. Abandoned epicardial pacing leads. Calcified tortuous aorta. Calcified tortuous aorta. Mild enlargement of the cardiac silhouette with pulmonary venous hypertension. Thoracolumbar curve with degenerative changes and compression of mid and lower thoracic vertebral bodies. Eventration right hemidiaphragm. No significant change since outside study of 04/21/2023. The pulmonary nodules identified on the [facility] CT examination of 11/05/2022 are not well demonstrated on current chest radiographs, likely reflecting differences in modality. Narrative 07/09/2023 12:36 PM HEAD BONE GRINDER EXAM: ??DX CHEST AP OR PA AND [...] 04/21/2023. The pulmonary nodules identified on the [facility] CTexamination of 11/05/2022 are not well demonstrated on current chest radiographs, likely reflecting differencesin modality. Eloy Cabrera M.D. IMG DIAGNOSTIC IMAGI NG PROCEDURES * Pulmonary Function Tests (07/09/2023 10:44 AM HEAD BONE GRINDER) FVC 1.91 L 07/09/2023 2:00 PM [facility] FEV1 1.06 L 07/09/2023 2:00 PM [facility] FEV1/FVC 55.47 % 07/09/2023 2:00 PM [facility] TRU20-41% 0.35 L/s 07/09/2023 2:00 PM [facility] PEF PRE 3.97 L/s 07/09/2023 2:00 PM [facility] PIF PRE 3.11 L/s 07/09/2023 2:00 PM [facility] FEF 50 % FIF 50 PRE 17.16 % 07/09/2023 2:00 PM [facility] FET PRE 13.45 sec 07/09/2023 2:00 PM [facility] DLCO 5.48 ml/(min*mm Hg) 07/09/2023 2:00 PM [facility] VA 3.11 L 07/09/2023 2:00 PM [facility] TLC 4.42 L 07/09/2023 2:00 PM [facility] FRCPLETH PROVBASE 3.09 L 07/09/2023 2:00 PM [facility] RV 2.48 L 07/09/2023 2:00 PM [facility] RV % TLC PRE 56.01 % 07/09/2023 2:00 PM [facility] 07/09/2023 10:4 4 AM HEAD BONE GRINDER Impressions [facility] - 07/09/2023 2:00 PM HEAD BONE GRINDER Abnormal. Moderate obstruction with possible air trapping. [...] is increased. Eloy Cabrera M.D. PFT ORDERABLES [facility] NA * (DAYNE) 2D WITH COLOR, LIMITED DOPPLER AND CONTRAST (07/02/2023 10:21 AM HEAD BONE GRINDER) Ejection Fraction 50 MC CV EIMS Mid-Ascending Aorta 39 MC CV EIMS MV mean gradient 5 MC CV EIMS Anatomical Region Laterality Modality Echocardiography 07/02/2023 8:21 AM HEAD BONE GRINDER Impressions 07/02/2023 11:11 AM HEAD BONE GRINDER PRE-SEDATION ASSESSMENT & CONSENT (performed immediately prior to the start of the procedure): The goals, risks and alternatives to moderate sedation and the transesophageal echo were explained to the patient, questions were answered and consent was given to proceed. The physician reviewed the patient's history, medication list, allergies, and review of systems, and the findings as documented in the tool and die inspector and also performed a pertinent examination including [...] the request of the primary customer service voice. Adult probe inserted without difficulty. LEFT VENTRICLE:Normal [...] Agitated saline injection(s) performed during sedation. No ocnbq-ot-fhwi shunt at atrial level at rest or [...] Sedation Narrator or other pertinent record in [facility] for additional procedure and sedation information. Physician signature for procedural medications and patient discharge when DC criteria met. For the complete report, see the Order-Level Documents. Narrative 07/02/2023 11:11 AM HEAD BONE GRINDER For the complete report, see the Order-Level Documents. Hemodynamics Heart Rate: 61 BPM Blood Pressure: 121 / 72 mmHg ECG: Atrial fibrillation Final Impressions 1. Transesophageal echocardiogram performed at the request of the primary customer service voice. 2. Status post 29mm [facility] Epic [...] intracardiac mass or thrombus identified. 10. No zvdbn-mn-uoln shunt at atrial level at rest or [...] performed at the request of the primaryservice aws consultant. 2. Status post 29mm [facility] [...] intracardiac mass or thrombus identified. 10. No pocjr-mb-dnjp shunt at atrial level at rest or [...] and the findings as documented in the tool and die inspector and alsoperformed a pertinent examination including a heart, airway and lungassessment. Mallampati Assessment: As documented in the RN pre-procedureassessment. Sedation plan: Transesophageal echo - moderate sedation. ASAphysical status score: Class III. The patient's identity and all neededequipment were confirmed and a final confirmatory pause was performed bythe team immediately prior to start. PROCEDURAL ECHO FINDINGS:Transesophageal echocardiogram performed at the request of the primaryservice aws consultant. Adult probe inserted without difficulty. LEFT [...] cava. Agitated saline injection(s) performed during sedation. Iuhfimi-wi-qnef shunt at atrial level at rest or [...] See Sedation Narrator orother pertinent record in [facility] for additional procedure and sedationinformation. Physician signature for procedural medications and patientdischarge when DC criteria met. For the complete report, see the Order-Level Documents. Tristian Tuttle APRN.N.P., M.S ., M.S.N. CV ECHO PROCEDURES * (TTE) 2D LIMITED WITH COLOR AND DOPPLER (06/21/2023 4:41 PM HEAD BONE GRINDER) Ejection Fraction 52 MC CV EIMS Mid-Ascending [...] Region Laterality Modality Echocardiography 06/21/2023 2:56 PM HEAD BONE GRINDER Impressions 06/21/2023 5:15 PM HEAD BONE GRINDER Hemoglobin 9.9 g/dL (22-OCT-2022). LEFT VENTRICLE:Normal left [...] the Order-Level Documents. Narrative 06/21/2023 5:15 PM HEAD BONE GRINDER For the complete report, see the Order-Level [...] * 6 MINUTE WALK (06/21/2023 1:00 PM HEAD BONE GRINDER) Narrative Rose Marie Mascorro APRN C.N.P., M.S.N. - 06/21/2023 1:00 PM HEAD BONE GRINDER Rose Marie Mascorro APRN, C.N.Jose, M.S.N. ? [...] - Somewhat Severe Time of Test: ??13:00 HEAD BONE GRINDER Total Distance Walked (Feet): ??790 Total Distance Walked (Meters): ??240.79 Total # of Times Stopped: ??0 Time Stopped (Seconds): ??0 Time Walked (Seconds): ??360 CALCULATIONS Estimated MPH: ??1.5 Estimated METs: ??2.15 % of Predicted Distance: ??61.15 Emi Georges APRN, C.N.P., M.S ., M.S.N. CV STRESS PROCEDURES * ECG 12 Lead (06/21/2023 10:17 AM HEAD BONE GRINDER) Ventricular Rate ECG/Min 79 BPM MUSE QRSD Interval 88 ms MUSE QT Interval 392 ms MUSE QTC Interval 449 ms MUSE R [place] 106 degrees MUSE T Wave [place] 6 degrees MUSE 06/21/2023 10:1 7 AM HEAD BONE GRINDER 06/21/2023 10:27 AM HEAD BONE GRINDER Impressions MUSE - 06/21/2023 10:27 AM HEAD BONE GRINDER Atrial fibrillation Rightward axis Nonspecific ST and [...] ., M.S.N. ECG ORDERABLES Performing Organization Address City/[facility]/ZIP Co de Phone Number MUSE NA * (ABNORMAL) NT-Pro B-Type Natriuretic Peptide (BNP) (06/21/2023 9:28 AM HEAD BONE GRINDER) NT-Pro BNP 9686(H) <=540 pg/mL 06/21/2023 11:07 AM HEAD BONE GRINDER DTL Comment: NT-proBNP values less than 300 [...] failure. Blood (Blood, Venous) 06/21/2023 9:28 AM HEAD BONE GRINDER 06/21/2023 10:10 AM HEAD BONE GRINDER Emi Roger Faustina Georges APRNNChel., M.S ., M.S.N. LAB BLOOD ADD-ON Performing Organization Address [facility] Co de Phone Number [facility] [address] [facility] [address] [place] [address] * (ABNORMAL) Sedimentation Rate (06/21/2023 9:28 AM HEAD BONE GRINDER) Sedimentation Rate, B 30(H) 3 - 28 mm/h 06/21/2023 11:21 AM HEAD BONE GRINDER DTL Blood (Blood, Venous) 06/21/2023 9:28 AM HEAD BONE GRINDER 06/21/2023 9:56 AM HEAD BONE GRINDER Faustina Thompson APRNN.P., M.S. LAB BLOOD ADD-ON Performing Organization Address [facility] Co de Phone Number [facility] [address] DTL [facility] [address] [place] [address] * (ABNORMAL) CRP (C-Reactive Protein) (06/21/2023 9:28 AM HEAD BONE GRINDER) Pathologist [facility] C-Reactive Protein (CRP), S 41.6(H) <5.0 mg/L 06/21/2023 11:07 AM HEAD BONE GRINDER DTL Blood (Blood, Venous) 06/21/2023 9:28 AM HEAD BONE GRINDER 06/21/2023 10:10 AM HEAD BONE GRINDER Tristian Thompson APRN.N.P., M.S. LAB BLOOD ADD-ON [facility] [address] [place], [place] [id number] [place] [address] [address] [place] [address] * (ABNORMAL) Uric Acid (06/21/2023 9:28 AM HEAD BONE GRINDER) [facility] Uric Acid, S 11.1(H) 2.7 - 6.1 mg/dL 06/21/2023 11:07 AM HEAD BONE GRINDER DTL Blood (Blood, Venous) 06/21/2023 9:28 AM HEAD BONE GRINDER 06/21/2023 10:10 AM HEAD BONE GRINDER Tristian Thompson APRN.N.P., M.S. LAB BLOOD ADD-ON [facility] [address] [place], [place] [id number] [place] [address] [address] [place] [address] * (ABNORMAL) BUN (Blood Urea Nitrogen) (06/21/2023 9:28 AM HEAD BONE GRINDER) [facility] BUN (Blood Urea Nitrogen), S 51(H) 6 - 21 mg/dL 06/21/2023 11:07 AM HEAD BONE GRINDER DTL Blood (Blood, Venous) 06/21/2023 9:28 AM HEAD BONE GRINDER 06/21/2023 10:10 AM HEAD BONE GRINDER Emi Georges APRN, C.N.P., M.S ., M.S.N. LAB BLOOD ADD-ON [facility] [address] [place] [address], [facility] [address] [place] [address] * AST (Aspartate Aminotransferase) (06/21/2023 9:28 AM HEAD BONE GRINDER) Aspartate Aminotransferase (AST), S 26 8 - 43 U/L 06/21/2023 11:07 AM HEAD BONE GRINDER DTL Blood (Blood, Venous) 06/21/2023 9:28 AM HEAD BONE GRINDER 06/21/2023 10:10 AM HEAD BONE GRINDER Rosa Bolton APRN, C.N.P., M.S. LAB BLOOD ADD-ON Performing Organization Address City/[facility]/ZIP Co de Phone Number [facility] [address] [place] [address], [facility] [address] [place] [address] * Sodium (06/21/2023 9:28 AM HEAD BONE GRINDER) Sodium, S 135 135 - 145 mmol/L 06/21/2023 11:07 AM HEAD BONE GRINDER DTL Blood (Blood, Venous) 06/21/2023 9:28 AM HEAD BONE GRINDER 06/21/2023 10:10 AM HEAD BONE GRINDER Faustina Tuttle APRNNJordan, M.S ., M.S.N. LAB BLOOD ADD-ON [facility] [address] [place] [address], [facility] [address] [place] [address] * Potassium (06/21/2023 9:28 AM HEAD BONE GRINDER) Potassium, S 4.3 3.6 - 5.2 mmol/L 06/21/2023 11:07 AM HEAD BONE GRINDER DTL Blood (Blood, Venous) 06/21/2023 9:28 AM HEAD BONE GRINDER 06/21/2023 10:10 AM HEAD BONE GRINDER Faustina Tuttle APRNNJordan, M.S ., M.S.N. LAB BLOOD ADD-ON [facility] [address] [place] [address], [facility] [address] [place] [address] * (ABNORMAL) Creatinine with Estimated GFR (06/21/2023 9:28 AM HEAD BONE GRINDER) Creatinine 1.98(H) 0.59 - 1.04 mg/dL 06/21/2023 11:07 AM HEAD BONE GRINDER DTL Estimated GFR (eGFR) 25(L) >=60 mL/min/BSA 06/21/2023 11:07 AM HEAD BONE GRINDER DTL Comment: Estimated GFR calculated using the 2020 CKD_EPI creatinine equation. Blood (Blood, Venous) 06/21/2023 9:28 AM HEAD BONE GRINDER 06/21/2023 10:10 AM HEAD BONE GRINDER Faustina Tuttle APRNNJordan, M.S ., M.S.N. 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
--- OUTSIDE RECORDS SUMMARY | 2023-08-19 16:05 | XMS_ITS | Clinical Summary ---
Author Name Unknown Organization [facility] Address [address] [place] [address] Care Team Providers [employer] Truck Driver Name Role Phone Elsewhere, Pcp Primary Care Provider Unavailabl e Source Comments Patient records contain information from all sites at [facility]. For routine questions regarding patient records, call [phone] during business hours, M-F 8:00 AM - 5:00 PM Central Time. Record requests for emergency care only can be directed to [phone] at any time.[facility] Allergies Active Allergy Reactions Criticality Noted Date [...] In the morning 0 2 Active multivitamin-iron -GP-Ti-pivronez (THERAPEUTIC-M) 400 mcg (folic acid) per tablet [...] Status Post 10/07/2021 Anticoagulant Therapy 10/07/2021 Therapy [employer] Antiplatelet 10/07/2021 Anemia Posthemorrhagic Acute (Blood Loss [...] Overview: Added automatically from request for surgery [id number] Apnea Sleep Obstructive 12/13/2017 Overweight Body Mass [...] Overview: Added automatically from request for surgery [id number] Chronic Diastolic (Congestive) Heart Failure 3 09/24/2021 Encounters Date Type Department Care Team Description 08/15/2023 Refill Department of Cardiovascular Medicine in [place], [place] [address] [place] [address] Emi Wilson APRN, C.N.P., M.S., M.S.N. Med Refill 07/09/2023 2:45 PM EDGE BLACKER - 07/09/2023 11:59 PM EDGE BLACKER Hospital Encounter Department of Laboratory Medicine and Pathology, [facility] in [place], [place] [address] [place] [address] Eloy Cabrera M.D. Sarcoidosis Pulmonary (HCC) Discharge Disposition: Home or Self Care 07/09/2023 2:00 PM EDGE BLACKER Office Visit Division of Pulmonary Medicine in [place], [place] [address] [place] [phone] Eloy Cabrera M.D. Sarcoidosis Pulmonary (HCC) (Primary Dx); Dyspnea On Exertion; Acute On Chronic Diastolic (Congestive) Heart Failure (HCC) 07/09/2023 12:07 PM EDGE BLACKER - 07/09/2023 2:44 PM EDGE BLACKER Hospital Encounter Department of Radiology, [place], [place] [address] [place] [address] Eloy Cabrera M.D. Dyspnea On Exertion; Sarcoidosis Pulmonary (HCC); Acute On Chronic Diastolic (Congestive) Heart Failure (HCC) Discharge Disposition: Home or Self Care 07/06/2023 11:15 AM EDGE BLACKER Office Visit Division of Rheumatology in [place], [place] [address] [place] [address] Rosa Bolton APRN, C.N.P., M.S. Arthritis Rheumatoid (HCC) (Primary Dx) 07/03/2023 Refill Division of Rheumatology in [place], [place] [address] [place] [phone] Rosa Bolton APRN, C.N.P., M.S. Med Refill 07/02/2023 2:00 PM EDGE BLACKER Office Visit Department of Cardiovascular Medicine in [place], [place] [address] [place] [phone] Emi Wilson APRN, C.N.P., M.S., M.S.N. Infarction Spleen (Primary Dx); Replacement Mitral Valve Tissue; Repair Tricuspid Valve Status Post; Chronic Diastolic (Congestive) Heart Failure (HCC) 07/02/2023 8:19 AM EDGE BLACKER - 07/02/2023 11:59 PM EDGE BLACKER Hospital Encounter Department of Cardiovascular Diseases in [place], [place] [address] [place] [address] Emi Wilson APRN, C.N.P., M.S., M.S.N. Replacement Mitral Valve Tissue; Infarction Spleen Discharge Disposition: Home or Self Care 06/22/2023 1:00 PM EDGE BLACKER Office Visit Department of Cardiovascular Medicine in [place], [place] [address] [place] [phone] Emi Wilson APRN, C.N.P., M.S., M.S.N. 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 Chronic Diastolic (Congestive) Heart Failure (HCC) Discharge Disposition: Home or Self Care 06/21/2023 12:40 PM EDGE BLACKER - 06/21/2023 1:56 PM EDGE BLACKER Hospital Encounter Department of Cardiac Rehabilitation in [address] [phone] Emi Wilson APRN, C.N.P., M.S., M.S.N. Chronic Diastolic (Congestive) Heart Failure (HCC) Discharge Disposition: Home or Self Care 06/21/2023 8:30 AM EDGE BLACKER - 06/21/2023 12:39 PM EDGE BLACKER Hospital Encounter Department of Laboratory Medicine and Pathology, [facility] in [address] [phone] Emi Wilson APRN, C.N.P., M.S., M.S.N. Chronic Diastolic (Congestive) Heart Failure (HCC); Arthritis Rheumatoid (HCC) Discharge Disposition: Home or Self Care 06/18/2023 11:15 AM [facility] Clinical Communication Virtual Review in [address] [address] Pre-visit Intake 06/08/2023 Refill Division of Rheumatology in [address] [phone] oRsa Bolton APRN, C.N.P., M.S. Med Refill 06/01/2023 4:00 PM EDGE BLACKER External Outreach Division of Nephrology and Hypertension in [address] [phone] Luis Agarwal Jr., D.O. Hypertension And Chronic [...] often do you attend chur ch or taoism services? More than 4 times per year 03/27/2022 Do you belong to any clubs o r organizations such as jainism groups, unions, fraternal or athletic groups, or [...] Answer Date Recorded PHQ-2 Score 3 09/24/2021 [facility] [...] place to sleep or slept in a halfway (including now)? No 03/27/2022 Depression Answer Date [...] Comments Blood Pressure 123/74 07/02/2023 1:51 PM EDGE BLACKER Pulse 90 07/02/2023 1:51 PM EDGE BLACKER Temperature 36.3 ??C (97.3 ??F) 11/14/2021 5:40 AM CD T Respiratory Rate 20 07/02/2023 10:3 9 AM EDGE BLACKER Oxygen Saturation 93% 07/09/2023 1:50 PM EDGE BLACKER Inhaled Oxygen Concentration - - Weight 68.5 kg (150 lb 14.5 oz) 07/02/2023 1:49 PM EDGE BLACKER Height 157.7 cm (5' 2.09) 07/02/2023 1:49 PM CS T Body Mass Index 27.52 07/02/2023 1:49 PM EDGE BLACKER Plan of Treatment Health Maintenance Due Date Last Done Comments Thyroid Stimulating Hormone (TSH) test for thyroid function 09/02/2022 09/02/2021, 12/27/2019, 10/28/2018, Additional history exists Depression Screening (Annual PHQ-2) 05/10/2023 Hydroxychloroquine (PLAQUENI L) Annual Exam 08/18/2023 Office Visit for Blood Pressure Check / [...] this topic Medical Devices Implanted Type Area Automobile Washer Steam Device Identifier Shelf Expiration Date Model / Serial / Lot Rng Anulo Mtrl Cnt Trcspd 30 - [id number] - [id number] Implanted:Qty: 1 on 10/07/2021 by Clarence Gee M.D. at [facility] Cardiac Valve Prosthesis N/A: Tricuspid Valve Medtronic 05/18/2026 [id number] / [id number] / Vlv [facility] 29 - [id number] - [id number] Implanted:Qty: 1 on 10/07/2021 by Clarence Gee M.D. at [facility] Cardiac Valve Prosthesis N/A: Mitral Valve Emerson 11/27/2024 [id number] M-00 / [id number] / Clp Hrzn Ti 6 Clp [facility] - [id number] Implanted:Qty: 1 on 10/07/2021 by Clarence Gee M.D. at [facility] Hardware e.g. pins/screws/ rods N/A: Chest [employer] [id number] / / J J Tib Insert Sigma 4x10.0 - Carmichael [id number] Implanted:Qty: 1 on 11/22/2006 Knee Implant Other/Legacy - See Implant Description [email or web address] Description:Device Manufactu rer - [employer]. Body Location - Other. Left. Device Status Text - KNEE [id number]. J J Sig Patella Oval 35 - [place]ichael [id number] Implanted:Qty: 1 on 11/22/2006 Knee Implant Other/Legacy - See Implant Description [employer] Description:Device Manufactu rer - [employer]. Body Location - Other. Left. Device Status Text - KNEE [id number]. J J Sig Fem Lugged Sz 4.0 Lt - Carmichael [id number] Implanted:Qty: 1 on 11/22/2006 Knee Implant Other/Legacy - See Implant Description [employer] Description:Device Manufactu rer - J [employer]. Body Location - Other. Left. Device Status Text - KNEE [id number]. J J Keel Tray Tib Mb Sz 3.0 - Carmichael [id number] Implanted:Qty: 1 on 11/22/2006 Knee Implant Other/Legacy - See Implant Description [employer] Description:Device Manufactu rer - [employer]. Body Location - Other. Left. Device Status Text - KNEE [id number]. Misc Other Misc Other Mouth Description:3 lower teeth im planted Misc Other Misc Other Mouth Description:2 teeth implants 2020 Cement Bone Large - Carmichael [id number] Implanted:Qty: 1 on 11/22/2006 Mis Other Jessica Description:Device Manufactu rer - [employer].. Device Status Text - [id number]. Procedures Procedure Name Priority Date/Time Associated Diagnosis Comments COMPREHENSIVE METABOLIC PANEL, S/P Routine 07/09/2023 2:54 PM EDGE BLACKER Sarcoidosis Pulmonary (HCC) CBC WITHOUT DIFFERENTIAL, B Routine 07/09/2023 2:54 PM EDGE BLACKER Sarcoidosis Pulmonary (HCC) 25-HYDROXYVITAMIN D2 AND D3, S Routine 07/09/2023 2:53 PM EDGE BLACKER Sarcoidosis Pulmonary (HCC) 1,25-DIHYDROXYVITAMIN D, S Routine 07/09/2023 2:53 PM EDGE BLACKER Sarcoidosis Pulmonary (HCC) DX CHEST AP OR PA AND LATERAL 2 VIEWS RAD - Routine (most inpatients and all outpatients) 07/09/2023 12:21 PM EDGE BLACKER Dyspnea On Exertion Sarcoidosis Pulmonary (HCC) Acute On Chronic Diastolic (Congestive) Heart Failure (HCC) PULMONARY FUNCTION TESTS Routine 07/09/2023 10:44 AM EDGE BLACKER Dyspnea On Exertion Sarcoidosis Pulmonary (HCC) Acute On Chronic Diastolic (Congestive) Heart Failure (HCC) (DAYNE) 2D WITH COLOR, LIMITED DOPPLER AND CONTRAST Routine 07/02/2023 10:21 AM EDGE BLACKER 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) 2D LIMITED WITH COLOR AND DOPPLER Routine 06/21/2023 4:41 PM EDGE BLACKER Chronic Diastolic (Congestive) Heart Failure (HCC) 6 MINUTE WALK Routine 06/21/2023 1:00 PM EDGE BLACKER Chronic Diastolic (Congestive) Heart Failure (HCC) ECG Routine 06/21/2023 10:17 AM EDGE BLACKER Chronic Diastolic (Congestive) Heart Failure (HCC) URIC ACID, S/P Routine 06/21/2023 9:28 AM EDGE BLACKER Arthritis Rheumatoid (HCC) ASPARTATE AMINOTRANSFERASE (AST), S/P Routine 06/21/2023 9:28 AM EDGE BLACKER Arthritis Rheumatoid (HCC) C-REACTIVE PROTEIN (CRP), S/P Routine 06/21/2023 9:28 AM EDGE BLACKER Arthritis Rheumatoid (HCC) SEDIMENTATION RATE, B Routine 06/21/2023 9:28 AM EDGE BLACKER Arthritis Rheumatoid (HCC) SODIUM, S/P Routine 06/21/2023 9:28 AM EDGE BLACKER Chronic Diastolic (Congestive) Heart Failure (HCC) POTASSIUM, S/P Routine 06/21/2023 9:28 AM EDGE BLACKER Chronic Diastolic (Congestive) Heart Failure (HCC) NT-PRO B-TYPE NATRIURETIC PEPTIDE (BNP), S Routine 06/21/2023 9:28 AM EDGE BLACKER Chronic Diastolic (Congestive) Heart Failure (HCC) CREATININE WITH EGFR, S/P Routine 06/21/2023 9:28 AM EDGE BLACKER Chronic Diastolic (Congestive) Heart Failure (HCC) BUN (BLOOD UREA NITROGEN), S/P Routine 06/21/2023 9:28 AM EDGE BLACKER Chronic Diastolic (Congestive) Heart Failure (HCC) from Last 3 Months Results * (ABNORMAL) CBC without Differential (07/09/2023 2:54 PM EDGE BLACKER) Hemoglobin 8.3(L) 11.6 - 15.0 g/dL 07/09/2023 3:15 PM EDGE BLACKER DTL Hematocrit 26.3(L) 35.5 - 44.9 % 07/09/2023 3:15 PM EDGE BLACKER DTL Erythrocytes 2.74(L) 3.92 - 5.13 x10(12)/L 07/09/2023 3:15 PM EDGE BLACKER DTL MCV 96.0 78.2 - 97.9 fL 07/09/2023 3:15 PM EDGE BLACKER DTL RBC Distrib Width 18.0(H) 12.2 - 16.1 % 07/09/2023 3:15 PM EDGE BLACKER DTL Platelet Count 267 157 - 371 x10(9)/L 07/09/2023 3:15 PM EDGE BLACKER DTL Leukocytes 6.8 3.4 - 9.6 x10(9)/L 07/09/2023 3:15 PM EDGE BLACKER DTL Blood (Blood, Venous) 07/09/2023 2:54 PM EDGE BLACKER 07/09/2023 3:07 PM EDGE BLACKER Eloy Cabrera M.D. LAB BLOOD ADD-ON [facility] [address] [place] [address], [facility] [place]note 2] [address] [place] [address] * (ABNORMAL) Comprehensive Metabolic Panel (07/09/2023 2:54 PM EDGE BLACKER) Pathologist [facility] Potassium, S 5.2 3.6 - 5.2 mmol/L 07/09/2023 4:08 PM EDGE BLACKER DTL Sodium, S 142 135 - 145 mmol/L 07/09/2023 4:08 PM EDGE BLACKER DTL Chloride, S 101 98 - 107 mmol/L 07/09/2023 4:08 PM EDGE BLACKER DTL Bicarbonate, S 27 22 - 29 mmol/L 07/09/2023 4:08 PM EDGE BLACKER DTL Anion Gap 14 7 - 15 07/09/2023 4:08 PM EDGE BLACKER DTL BUN (Blood Urea Nitrogen), S 70(H) 6 - 21 mg/dL 07/09/2023 4:08 PM EDGE BLACKER DTL Creatinine 2.00(H) 0.59 - 1.04 mg/dL 07/09/2023 4:08 PM EDGE BLACKER DTL Estimated GFR (eGFR) 25(L) >=60 mL/min/BS A 07/09/2023 4:08 PM EDGE BLACKER DTL Comment: Estimated GFR calculated using the 2020 CKD_EPI creatinine equation. Calcium, Total, S 9.2 8.8 - 10.2 mg/dL 07/09/2023 4:08 PM EDGE BLACKER DTL Glucose, S 108 70 - 140 mg/dL 07/09/2023 4:08 PM EDGE BLACKER DTL Protein, Total, S 7.3 6.3 - 7.9 g/dL 07/09/2023 4:08 PM EDGE BLACKER DTL Albumin, S 4.6 3.5 - 5.0 g/dL 07/09/2023 4:08 PM EDGE BLACKER DTL Aspartate Aminotransferase (AST), S 27 8 - 43 U/L 07/09/2023 4:08 PM EDGE BLACKER DTL Alkaline Phosphatase, S 210(H) 35 - 104 U/L 07/09/2023 4:08 PM EDGE BLACKER DTL Alanine Aminotransferase (ALT), S 26 7 - 45 U/L 07/09/2023 4:08 PM EDGE BLACKER DTL Bilirubin, Total, S 0.8 0.0 - 1.2 mg/dL 07/09/2023 4:08 PM EDGE BLACKER DTL Blood (Blood, Venous) 07/09/2023 2:54 PM EDGE BLACKER 07/09/2023 3:19 PM EDGE BLACKER Eloy Cabrera M.D. LAB BLOOD ADD-ON Performing Organization Address City/[facility]/ZIP Co de Phone Number [facility] [address] [place] [address], [facility] [place]note 2] [address] [place] [address] * 1,25-Dihydroxyvitamin D (07/09/2023 2:53 PM EDGE BLACKER) [facility] 1, 25 DIHYDROXYVITAMIN D, S 56 18 - 78 pg/mL 07/13/2023 11:56 PM EDGE BLACKER [facility] Comment: ----ADDITIONAL INFORMATION---- This test was developed and its performance characteristics determined by [facility] in a manner consistent with CLIA requirements. This test has not been cleared or approved by the U.S. Food and Drug Administration. Blood (Blood, Venous) 07/09/2023 2:53 PM EDGE BLACKER 07/12/2023 7:18 AM EDGE BLACKER Eloy Cabrera M.D. LAB BLOOD ADD-ON Performing Organization Address City/[facility]/ZIP Co de Phone Number [facility] [address] [place] [address] [facility] [address] [place] [address] [place] [address] * 25-Hydroxyvitamin D2 and D3 (07/09/2023 2:53 PM EDGE BLACKER) [facility] 25-Hydroxy D2 5.5 ng/mL 07/13/2023 11:08 AM EDGE BLACKER SDS 25-Hydroxy D3 51 ng/mL 07/13/2023 11:08 AM EDGE BLACKER SDS 25-Hydroxy D Total 57 ng/mL 2023 11:08 AM EDGE BLACKER [facility] Comment: Interpretation: 51-80 ng/mL (increased risk of hypercalciuria) ----REFERENCE VALUE---- 25-HYDROXY D TOTAL (D2+D3) Optimum levels in the healthy population are 20-50, patients with bone disease may benefit from higher levels within this range. ----ADDITIONAL INFORMATION---- This test was developed and its performance characteristics determined by [facility] in a manner consistent with CLIA requirements. This test has not been cleared or approved by the U.S. Food and Drug Administration. Blood (Blood, Venous) 07/09/2023 2:53 PM EDGE BLACKER 07/12/2023 7:23 AM EDGE BLACKER Eloy Cabrera M.D. LAB BLOOD ADD-ON [facility] [address] [place] [address] [facility] [address] [place] [address] [place] [address] * DX Chest AP or PA and Lateral 2 Views (07/09/2023 12:21 PM EDGE BLACKER) Anatomical Region Laterality Modality Chest, Thoracic RST LOS, Tho racic ARZ LOS, Thoracic FLA LOS N/A Digital Radiography Impressions 07/09/2023 12:36 PM EDGE BLACKER Sternotomy. Tricuspid annuloplasty. Abandoned epicardial pacing leads. Calcified tortuous aorta. Calcified tortuous aorta. Mild enlargement of the cardiac silhouette with pulmonary venous hypertension. Thoracolumbar curve with degenerative changes and compression of mid and lower thoracic vertebral bodies. Eventration right hemidiaphragm. No significant change since outside study of 04/21/2023. The pulmonary nodules identified on the [facility] CT examination of 11/05/2022 are not well demonstrated on current chest radiographs, likely reflecting differences in modality. Narrative 07/09/2023 12:36 PM EDGE BLACKER EXAM: ??DX CHEST AP OR PA AND [...] nodules identified on the [facility] CTexamination of 11/05/2022 are not well demonstrated on current chest radiographs, likely reflecting differencesin modality. Eloy Cabrera M.D. [facility] PROCED[facility] * Pulmonary Function Tests (07/09/2023 10:44 AM EDGE BLACKER) FVC 1.91 L 07/09/2023 2:[address] [facility] FEV1 1.06 L 07/09/2023 2:[address] [facility] FEV1/FVC 55.47 % 07/09/2023 2:[address] [facility] OEY46-75% 0.35 L/s 07/09/2023 2:[address] [facility] PEF PRE 3.97 L/s 07/09/2023 2:[address] [facility] PIF PRE 3.11 L/s 07/09/2023 2:[address] [facility] FEF 50 % FIF 50 PRE 17.16 % 07/09/2023 2:[address] [facility] FET PRE 13.45 sec 07/09/2023 2:[address] [facility] DLCO 5.48 ml/(min*mm Hg) 07/09/2023 2:[address] [facility] VA 3.11 L 07/09/2023 2:00 PM EDGE BLACKER [facility] TLC 4.42 L 07/09/2023 2:00 PM EDGE BLACKER [facility] FRCPLETH PROVBASE 3.09 L 07/09/2023 2:00 PM EDGE BLACKER [facility] RV 2.48 L 07/09/2023 2:00 PM EDGE BLACKER [facility] RV % TLC PRE 56.01 % 07/09/2023 2:00 PM EDGE BLACKER [facility] 07/09/2023 10:4 4 AM EDGE BLACKER Impressions [facility] - 07/09/2023 2:00 PM EDGE BLACKER Abnormal. Moderate obstruction with possible air trapping. [...] is increased. Eloy Cabrera M.D. PFT ORDERABLES [facility] NA * (DAYNE) 2D WITH COLOR, LIMITED DOPPLER AND CONTRAST (07/02/2023 10:21 AM EDGE BLACKER) Ejection Fraction 50 MC CV EIMS Mid-Ascending Aorta 39 MC CV EIMS MV mean gradient 5 MC CV EIMS Anatomical Region Laterality Modality Echocardiography 07/02/2023 8:21 AM EDGE BLACKER Impressions 07/02/2023 11:11 AM EDGE BLACKER PRE-SEDATION ASSESSMENT & CONSENT (performed immediately prior to the start of the procedure): The goals, risks and alternatives to moderate sedation and the transesophageal echo were explained to the patient, questions were answered and consent was given to proceed. The physician reviewed the patient's history, medication list, allergies, and review of systems, and the findings as documented in the microwave radio technician and also performed a pertinent examination including [...] performed at the request of the primary medicaid service coordinator. Adult probe inserted without difficulty. LEFT VENTRICLE:Normal [...] Agitated saline injection(s) performed during sedation. No saztx-fq-oitg shunt at atrial level at rest or [...] Sedation Narrator or other pertinent record in [facility] for additional procedure and sedation information. Physician signature for procedural medications and patient discharge when DC criteria met. For the complete report, see the Order-Level Documents. Narrative 07/02/2023 11:11 AM EDGE BLACKER For the complete report, see the Order-Level Documents. Hemodynamics Heart Rate: 61 BPM Blood Pressure: 121 / 72 mmHg ECG: Atrial fibrillation Final Impressions 1. Transesophageal echocardiogram performed at the request of the primary medicaid service coordinator. 2. Status post 29mm [facility] Epic [...] intracardiac mass or thrombus identified. 10. No cixsk-vq-wpmb shunt at atrial level at rest or [...] performed at the request of the primaryservice strategic sourcing consultant. 2. Status post 29mm [facility] [...] intracardiac mass or thrombus identified. 10. No jyzpc-nn-qzra shunt at atrial level at rest or [...] and the findings as documented in the microwave radio technician and alsoperformed a pertinent examination including a heart, airway and lungassessment. Mallampati Assessment: As documented in the RN pre-procedureassessment. Sedation plan: Transesophageal echo - moderate sedation. ASAphysical status score: Class III. The patient's identity and all neededequipment were confirmed and a final confirmatory pause was performed bythe team immediately prior to start. PROCEDURAL ECHO FINDINGS:Transesophageal echocardiogram performed at the request of the primaryservice strategic sourcing consultant. Adult probe inserted without difficulty. LEFT [...] cava. Agitated saline injection(s) performed during sedation. Recommj-qt-fcll shunt at atrial level at rest or [...] WITH COLOR AND DOPPLER (06/21/2023 4:41 PM EDGE BLACKER) Ejection Fraction 52 MC CV EIMS Mid-Ascending [...] Region Laterality Modality Echocardiography 06/21/2023 2:56 PM EDGE BLACKER Impressions 06/21/2023 5:15 PM EDGE BLACKER Hemoglobin 9.9 g/dL (22-OCT-2022). LEFT VENTRICLE:Normal left [...] the Order-Level Documents. Narrative 06/21/2023 5:15 PM EDGE BLACKER For the complete report, see the Order-Level [...] * 6 MINUTE WALK (06/21/2023 1:00 PM EDGE BLACKER) Narrative Rose Marie Mascorro APRN, C.N.PVikas, M.S.N. - 06/21/2023 1:00 PM EDGE BLACKER Rose Marie Mascorro APRN, C.N.PVikas, M.S.N. ? [...] - Somewhat Severe Time of Test: ??13:00 EDGE BLACKER Total Distance Walked (Feet): ??790 Total Distance Walked (Meters): ??240.79 Total # of Times Stopped: ??0 Time Stopped (Seconds): ??0 Time Walked (Seconds): ??360 CALCULATIONS Estimated MPH: ??1.5 Estimated METs: ??2.15 % of Predicted Distance: ??61.15 Tristian Tuttle APRN.N.Jose, M.S ., M.S.N. CV STRESS PROCEDURES * ECG 12 Lead (06/21/2023 10:17 AM EDGE BLACKER) Ventricular Rate ECG/Min 79 BPM MUSE QRSD Interval 88 ms MUSE QT Interval 392 ms MUSE QTC Interval 449 ms MUSE R [place] 106 degrees MUSE T Wave [place] 6 degrees MUSE 06/21/2023 10:1 7 AM EDGE BLACKER 06/21/2023 10:27 AM EDGE BLACKER Impressions MUSE - 06/21/2023 10:27 AM EDGE BLACKER Atrial fibrillation Rightward axis Nonspecific ST and [...] B-Type Natriuretic Peptide (BNP) (06/21/2023 9:28 AM EDGE BLACKER) NT-Pro BNP 9686(H) <=540 pg/mL 06/21/2023 11:07 AM EDGE BLACKER DTL Comment: NT-proBNP values less than 300 [...] failure. Blood (Blood, Venous) 06/21/2023 9:28 AM EDGE BLACKER 06/21/2023 10:10 AM EDGE BLACKER Tristian Tuttle APRN.N.P., M.S ., M.S.N. LAB BLOOD ADD-ON Performing Organization Address City/[facility] Co de Phone Number [facility] [address] [place], [place] [phone] [place] [address] [facility] [place][note 2] [address] [place] [address] * (ABNORMAL) Sedimentation Rate (06/21/2023 9:28 AM EDGE BLACKER) Sedimentation Rate, B 30(H) 3 - 28 mm/h 06/21/2023 11:21 AM EDGE BLACKER DTL Blood (Blood, Venous) 06/21/2023 9:28 AM EDGE BLACKER 06/21/2023 9:56 AM EDGE BLACKER Tristian Thompson APRN.N.P., M.S. LAB BLOOD ADD-ON Performing Organization Address City/[facility] Co de Phone Number [facility] [address] [place], [place] [phone] [place] [address] [facility] [place]note 2] [address] [place] [address] * (ABNORMAL) CRP (C-Reactive Protein) (06/21/2023 9:28 AM EDGE BLACKER) C-Reactive Protein (CRP), S 41.6(H) <5.0 mg/L 06/21/2023 11:07 AM EDGE BLACKER DTL Blood (Blood, Venous) 06/21/2023 9:28 AM EDGE BLACKER 06/21/2023 10:10 AM EDGE BLACKER Tristian Thompson APRN.N.P., M.S. LAB BLOOD ADD-ON Performing Organization Address City/[facility] Co de Phone Number [facility] [address] [place] [address] * (ABNORMAL) Uric Acid (06/21/2023 9:28 AM EDGE BLACKER) Uric Acid, S 11.1(H) 2.7 - 6.1 mg/dL 06/21/2023 11:07 AM EDGE BLACKER DT Blood (Blood, Venous) 06/21/2023 9:28 AM EDGE BLACKER 06/21/2023 10:10 AM EDGE BLACKER Tristian Thompson APRN.N.P., M.S. LAB BLOOD ADD-ON Performing Organization Address City/[facility] Co de Phone Number [facility] [address] [place] [address] * (ABNORMAL) BUN (Blood Urea Nitrogen) (06/21/2023 9:28 AM EDGE BLACKER) BUN (Blood Urea Nitrogen), S 51(H) 6 - 21 mg/dL 06/21/2023 11:07 AM EDGE BLACKER DTL Blood (Blood, Venous) 06/21/2023 9:28 AM EDGE BLACKER 06/21/2023 10:10 AM EDGE BLACKER Emi Georges APRN C.N.P., M.S ., M.S.N. LAB BLOOD ADD-ON [facility] [address] [place] [address] * AST (Aspartate Aminotransferase) (06/21/2023 9:28 AM EDGE BLACKER) Aspartate Aminotransferase (AST), S 26 8 - 43 U/L 06/21/2023 11:07 AM EDGE BLACKER DTL Blood (Blood, Venous) 06/21/2023 9:28 AM EDGE BLACKER 06/21/2023 10:10 AM EDGE BLACKER Faustina Thompson APRNNChel., M.S. LAB BLOOD ADD-ON Performing Organization Address City/[facility]/ZIP Co de Phone Number [facility] [address] [place] [address] * Sodium (06/21/2023 9:28 AM EDGE BLACKER) Sodium, S 135 135 - 145 mmol/L 06/21/2023 11:07 AM EDGE BLACKER DT Blood (Blood, Venous) 06/21/2023 9:28 AM EDGE BLACKER 06/21/2023 10:10 AM EDGE BLACKER Tristian Tuttle APRN.N.P., M.S ., M.S.N. LAB BLOOD ADD-ON [facility] [address] [place] [address] * Potassium (06/21/2023 9:28 AM EDGE BLACKER) Potassium, S 4.3 3.6 - 5.2 mmol/L 06/21/2023 11:07 AM EDGE BLACKER DTL Blood (Blood, Venous) 06/21/2023 9:28 AM EDGE BLACKER 06/21/2023 10:10 AM EDGE BLACKER Emi Georges APRN, C.N.P., Anthony ., M.S.N. LAB BLOOD ADD-ON Performing Organization Address City/State/[facility] Co de Phone Number [facility] [address] [place] [address], [facility] [place]note 2[facility] [address] [place] [address] * (ABNORMAL) Creatinine with Estimated GFR (06/21/2023 9:28 AM EDGE BLACKER) Creatinine 1.98(H) 0.59 - 1.04 mg/dL 06/21/2023 11:07 AM EDGE BLACKER DTL Estimated GFR (eGFR) 25(L) >=60 mL/min/BSA 06/21/2023 11:07 AM EDGE BLACKER DTL Comment: Estimated GFR calculated using the 2020 CKD_EPI creatinine equation. Blood (Blood, Venous) 06/21/2023 9:28 AM EDGE BLACKER 06/21/2023 10:10 AM EDGE BLACKER Emi Georges APRN, C.N.P., M.S ., M.S.N. LAB BLOOD ADD-ON Performing Organization Address City/[facility] Co de Phone Number [facility] [address] [place] [address], [facility] [place]note 2[facility] [address] [place] [address] from Last 3 Months Advance Directives For more information, please contact: [phone] Documents on File Type Date Recorded Patient Dean Of Education Expl anation Advance Directives 11/26/2006 12:00 AM [...] Answer Comments Full Code: Discussed Care Teams [employer] Relationship Specialty Start Date End Date Elsewhere, Pcp PCP - General Internal Medicine 04/08/22
--- OUTSIDE RECORDS SUMMARY | 2023-08-19 16:05 | XMS_ITS ---
Author Name Unknown Organization [facility] Address [address] [place] [address] Care Team Providers Care Care Transition Mgr Name Role Phone Unavailable Unavailable Unavailable Surgery Details Not on file Complications Check Surgery Details section. Procedure Estimated Blood Loss Check Surgery Details section. Procedure Findings Check Surgery Details section. Procedure Specimens Taken Check Surgery Details section.
--- OUTSIDE RECORDS SUMMARY | 2023-08-19 16:05 | XMS_ITS ---
Author Name Unknown Organization [facility] Address [address] [place] [address] Care Team Providers Care Machinery Mechanic Name Role Phone Elsewhere, Pcp Primary Care Provider Unavailabl e Procedures Procedure Name Priority Date/Time Associated Diagnosis Comments COMPREHENSIVE METABOLIC PANEL, S/P Routine 07/09/2023 2:54 PM WATCHMAKER APPRENTICE Sarcoidosis Pulmonary (HCC) CBC WITHOUT DIFFERENTIAL, B Routine 07/09/2023 2:54 PM WATCHMAKER APPRENTICE Sarcoidosis Pulmonary (HCC) 25-HYDROXYVITAMIN D2 AND D3, S Routine 07/09/2023 2:53 PM WATCHMAKER APPRENTICE Sarcoidosis Pulmonary (HCC) 1,25-DIHYDROXYVITAMIN D, S Routine 07/09/2023 2:53 PM WATCHMAKER APPRENTICE Sarcoidosis Pulmonary (HCC) DX CHEST AP OR PA AND LATERAL 2 VIEWS RAD - Routine (most inpatients and all outpatients) 07/09/2023 12:21 PM WATCHMAKER APPRENTICE Dyspnea On Exertion Sarcoidosis Pulmonary (HCC) Acute On Chronic Diastolic (Congestive) Heart Failure (HCC) PULMONARY FUNCTION TESTS Routine 07/09/2023 10:44 AM WATCHMAKER APPRENTICE Dyspnea On Exertion Sarcoidosis Pulmonary (HCC) Acute On Chronic Diastolic (Congestive) Heart Failure (HCC) (DAYNE) 2D WITH COLOR, LIMITED DOPPLER AND CONTRAST Routine 07/02/2023 10:21 AM WATCHMAKER APPRENTICE 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) 2D LIMITED WITH COLOR AND DOPPLER Routine 06/21/2023 4:41 PM WATCHMAKER APPRENTICE Chronic Diastolic (Congestive) Heart Failure (HCC) 6 MINUTE WALK Routine 06/21/2023 1:00 PM WATCHMAKER APPRENTICE Chronic Diastolic (Congestive) Heart Failure (HCC) ECG Routine 06/21/2023 10:17 AM WATCHMAKER APPRENTICE Chronic Diastolic (Congestive) Heart Failure (HCC) URIC ACID, S/P Routine 06/21/2023 9:28 AM WATCHMAKER APPRENTICE Arthritis Rheumatoid (HCC) ASPARTATE AMINOTRANSFERASE (AST), S/P Routine 06/21/2023 9:28 AM WATCHMAKER APPRENTICE Arthritis Rheumatoid (HCC) C-REACTIVE PROTEIN (CRP), S/P Routine 06/21/2023 9:28 AM WATCHMAKER APPRENTICE Arthritis Rheumatoid (HCC) SEDIMENTATION RATE, B Routine 06/21/2023 9:28 AM WATCHMAKER APPRENTICE Arthritis Rheumatoid (HCC) SODIUM, S/P Routine 06/21/2023 9:28 AM WATCHMAKER APPRENTICE Chronic Diastolic (Congestive) Heart Failure (HCC) POTASSIUM, S/P Routine 06/21/2023 9:28 AM WATCHMAKER APPRENTICE Chronic Diastolic (Congestive) Heart Failure (HCC) NT-PRO B-TYPE NATRIURETIC PEPTIDE (BNP), S Routine 06/21/2023 9:28 AM WATCHMAKER APPRENTICE Chronic Diastolic (Congestive) Heart Failure (HCC) CREATININE WITH EGFR, S/P Routine 06/21/2023 9:28 AM WATCHMAKER APPRENTICE Chronic Diastolic (Congestive) Heart Failure (HCC) BUN (BLOOD UREA NITROGEN), S/P Routine 06/21/2023 9:28 AM WATCHMAKER APPRENTICE Chronic Diastolic (Congestive) Heart Failure (HCC) from [...] In the morning 0 2 Active multivitamin-iron -ER-Qr-uzafoqvu (THERAPEUTIC-M) 400 mcg (folic acid) per tablet [...] Status Post 10/07/2021 Anticoagulant Therapy 10/07/2021 Therapy Machine Skiver Antiplatelet 10/07/2021 Anemia Posthemorrhagic Acute (Blood Loss [...] Overview: Added automatically from request for surgery [id number] Apnea Sleep Obstructive 12/13/2017 Overweight Body Mass [...] often do you attend chur ch or advent services? More than 4 times per year 03/27/2022 Do you belong to any clubs o r organizations such as gnosticism groups, unions, fraternal or athletic groups, or [...] Answer Date Recorded PHQ-2 Score 3 09/24/2021 [facility] [...] place to sleep or slept in a detention (including now)? No 03/27/2022 Depression Answer Date [...] Comments Blood Pressure 123/74 07/02/2023 1:51 PM WATCHMAKER APPRENTICE Pulse 90 07/02/2023 1:51 PM WATCHMAKER APPRENTICE Temperature 36.3 ??C (97.3 ??F) 11/14/2021 5:40 AM CD T Respiratory Rate 20 07/02/2023 10:3 9 AM WATCHMAKER APPRENTICE Oxygen Saturation 93% 07/09/2023 1:50 PM WATCHMAKER APPRENTICE Inhaled Oxygen Concentration - - Weight 68.5 kg (150 lb 14.5 oz) 07/02/2023 1:49 PM WATCHMAKER APPRENTICE Height 157.7 cm (5' 2.09) 07/02/2023 1:49 PM CS T Body Mass Index 27.52 07/02/2023 1:49 PM WATCHMAKER APPRENTICE Results * (ABNORMAL) CBC without Differential (07/09/2023 2:54 PM WATCHMAKER APPRENTICE) Pathologist [facility] Hemoglobin 8.3(L) 11.6 - 15.0 g/dL 07/09/2023 3:15 PM WATCHMAKER APPRENTICE DTL Hematocrit 26.3(L) 35.5 - 44.9 % 07/09/2023 3:15 PM WATCHMAKER APPRENTICE DTL Erythrocytes 2.74(L) 3.92 - 5.13 x10(12)/L 07/09/2023 3:15 PM WATCHMAKER APPRENTICE DTL MCV 96.0 78.2 - 97.9 fL 07/09/2023 3:15 PM WATCHMAKER APPRENTICE DTL RBC Distrib Width 18.0(H) 12.2 - 16.1 % 07/09/2023 3:15 PM WATCHMAKER APPRENTICE DTL Platelet Count 267 157 - 371 x10(9)/L 07/09/2023 3:15 PM WATCHMAKER APPRENTICE DTL Leukocytes 6.8 3.4 - 9.6 x10(9)/L 07/09/2023 3:15 PM WATCHMAKER APPRENTICE DTL Blood (Blood, Venous) 07/09/2023 2:54 PM WATCHMAKER APPRENTICE 07/09/2023 3:07 PM WATCHMAKER APPRENTICE Eloy Cabrera M.D. LAB BLOOD ADD-ON [facility] [address] [place] [address], [facility] [address] [place] [address] * (ABNORMAL) Comprehensive Metabolic Panel (07/09/2023 2:54 PM WATCHMAKER APPRENTICE) Pathologist [facility] Potassium, S 5.2 3.6 - 5.2 mmol/L 07/09/2023 4:08 PM WATCHMAKER APPRENTICE DTL Sodium, S 142 135 - 145 mmol/L 07/09/2023 4:08 PM WATCHMAKER APPRENTICE DTL Chloride, S 101 98 - 107 mmol/L 07/09/2023 4:08 PM WATCHMAKER APPRENTICE DTL Bicarbonate, S 27 22 - 29 mmol/L 07/09/2023 4:08 PM WATCHMAKER APPRENTICE DTL Anion Gap 14 7 - 15 07/09/2023 4:08 PM WATCHMAKER APPRENTICE DTL BUN (Blood Urea Nitrogen), S 70(H) 6 - 21 mg/dL 07/09/2023 4:08 PM WATCHMAKER APPRENTICE DTL Creatinine 2.00(H) 0.59 - 1.04 mg/dL 07/09/2023 4:08 PM WATCHMAKER APPRENTICE DTL Estimated GFR (eGFR) 25(L) >=60 mL/min/BS A 07/09/2023 4:08 PM WATCHMAKER APPRENTICE DTL Comment: Estimated GFR calculated using the 2020 CKD_EPI creatinine equation. Calcium, Total, S 9.2 8.8 - 10.2 mg/dL 07/09/2023 4:08 PM WATCHMAKER APPRENTICE DTL Glucose, S 108 70 - 140 mg/dL 07/09/2023 4:08 PM WATCHMAKER APPRENTICE DTL Protein, Total, S 7.3 6.3 - 7.9 g/dL 07/09/2023 4:08 PM WATCHMAKER APPRENTICE DTL Albumin, S 4.6 3.5 - 5.0 g/dL 07/09/2023 4:08 PM WATCHMAKER APPRENTICE DTL Aspartate Aminotransferase (AST), S 27 8 - 43 U/L 07/09/2023 4:08 PM WATCHMAKER APPRENTICE DTL Alkaline Phosphatase, S 210(H) 35 - 104 U/L 07/09/2023 4:08 PM WATCHMAKER APPRENTICE DTL Alanine Aminotransferase (ALT), S 26 7 - 45 U/L 07/09/2023 4:08 PM WATCHMAKER APPRENTICE DTL Bilirubin, Total, S 0.8 0.0 - 1.2 mg/dL 07/09/2023 4:08 PM WATCHMAKER APPRENTICE DTL Blood (Blood, Venous) 07/09/2023 2:54 PM WATCHMAKER APPRENTICE 07/09/2023 3:19 PM WATCHMAKER APPRENTICE Eloy Cabrera M.D. LAB BLOOD ADD-ON [facility] [address] [place] [address], [facility] DTL [facility] [address] [place] [address] * 1,25-Dihydroxyvitamin D (07/09/2023 2:53 PM WATCHMAKER APPRENTICE) 1, 25 DIHYDROXYVITAMIN D, S 56 18 - 78 pg/mL 07/13/2023 11:56 PM WATCHMAKER APPRENTICE [facility] Comment: ----ADDITIONAL INFORMATION---- This test was developed and its performance characteristics determined by [facility] in a manner consistent with CLIA requirements. This test has not been cleared or approved by the U.S. Food and Drug Administration. Blood (Blood, Venous) 07/09/2023 2:53 PM WATCHMAKER APPRENTICE 07/12/2023 7:18 AM WATCHMAKER APPRENTICE Eloy Cabrera M.D. LAB BLOOD ADD-ON Performing Organization Address [facility] Co de Phone Number [facility] [address] [place] [address] [facility] [address] [place] [address] [place] [address] * 25-Hydroxyvitamin D2 and D3 (07/09/2023 2:53 PM WATCHMAKER APPRENTICE) 25-Hydroxy D2 5.5 ng/mL 07/13/2023 11:08 AM WATCHMAKER APPRENTICE [facility] 25-Hydroxy D3 51 ng/mL 07/13/2023 11:08 AM [facility] 25-Hydroxy D Total 57 ng/mL 2023 11:08 AM [facility] Comment: Interpretation: 51-80 ng/mL (increased risk of hypercalciuria) ----REFERENCE VALUE---- 25-HYDROXY D TOTAL (D2+D3) Optimum levels in the healthy population are 20-50, patients with bone disease may benefit from higher levels within this range. ----ADDITIONAL INFORMATION---- This test was developed and its performance characteristics determined by [facility] in a manner consistent with CLIA requirements. This test has not been cleared or approved by the U.S. Food and Drug Administration. Blood (Blood, Venous) 07/09/2023 2:53 PM WATCHMAKER APPRENTICE 07/12/2023 7:23 AM WATCHMAKER APPRENTICE Eloy Cabrera M.D. LAB BLOOD ADD-ON Performing Organization Address [facility]/ZIP Co de Phone Number [facility] [address] [place] [address] [facility] [address] [place] [address] [place] [address] * DX Chest AP or PA and Lateral 2 Views (07/09/2023 12:21 PM WATCHMAKER APPRENTICE) Anatomical Region Laterality Modality Chest, Thoracic RST LOS, Tho racic ARZ LOS, Thoracic FLA LOS N/A Digital Radiography Impressions 07/09/2023 12:36 PM WATCHMAKER APPRENTICE Sternotomy. Tricuspid annuloplasty. Abandoned epicardial pacing leads. Calcified tortuous aorta. Calcified tortuous aorta. Mild enlargement of the cardiac silhouette with pulmonary venous hypertension. Thoracolumbar curve with degenerative changes and compression of mid and lower thoracic vertebral bodies. Eventration right hemidiaphragm. No significant change since outside study of 04/21/2023. The pulmonary nodules identified on the [facility] CT examination of 11/05/2022 are not well demonstrated on current chest radiographs, likely reflecting differences in modality. Narrative 07/09/2023 12:36 PM WATCHMAKER APPRENTICE EXAM: ??DX CHEST AP OR PA AND [...] 04/21/2023. The pulmonary nodules identified on the [facility] CTexamination of 11/05/2022 are not well demonstrated on current chest radiographs, likely reflecting differencesin modality. Eloy Cabrera M.D. [facility] [place] [facility]NOSTIC IMAGI NG PROCEDURES * Pulmonary Function Tests (07/09/2023 10:44 AM WATCHMAKER APPRENTICE) FVC 1.91 L 07/09/2023 2:00 PM WATCHMAKER APPRENTICE [facility] SENT SUITE FEV1 1.06 L 07/09/2023 2:00 PM [facility] FEV1/FVC 55.47 % 07/09/2023 2:00 PM [facility] UFB66-09% 0.35 L/s 07/09/2023 2:00 PM [facility] PEF PRE 3.97 L/s 07/09/2023 2:00 PM [facility] PIF PRE 3.11 L/s 07/09/2023 2:00 PM [facility] FEF 50 % FIF 50 PRE 17.16 % 07/09/2023 2:00 PM [facility] FET PRE 13.45 sec 07/09/2023 2:00 PM [facility] DLCO 5.48 ml/(min*mm Hg) 07/09/2023 2:00 PM [facility] VA 3.11 L 07/09/2023 2:00 PM [facility] TLC 4.42 L 07/09/2023 2:00 PM [facility] FRCPLETH PROVBASE 3.09 L 07/09/2023 2:00 PM [facility] RV 2.48 L 07/09/2023 2:00 PM [facility] RV % TLC PRE 56.01 % 07/09/2023 2:00 PM [facility] 07/09/2023 10:4 4 AM WATCHMAKER APPRENTICE Impressions [facility] - 07/09/2023 2:00 PM WATCHMAKER APPRENTICE Abnormal. Moderate obstruction with possible air trapping. [...] is increased. Eloy Cabrera M.D. PFT ORDERABLES [facility] SUITE NA * (DAYNE) 2D WITH COLOR, LIMITED DOPPLER AND CONTRAST (07/02/2023 10:21 AM WATCHMAKER APPRENTICE) Ejection Fraction 50 MC CV EIMS Mid-Ascending Aorta 39 MC CV EIMS MV mean gradient 5 MC CV EIMS Anatomical Region Laterality Modality Echocardiography 07/02/2023 8:21 AM WATCHMAKER APPRENTICE Impressions 07/02/2023 11:11 AM WATCHMAKER APPRENTICE PRE-SEDATION ASSESSMENT & CONSENT (performed immediately prior to the start of the procedure): The goals, risks and alternatives to moderate sedation and the transesophageal echo were explained to the patient, questions were answered and consent was given to proceed. The physician reviewed the patient's history, medication list, allergies, and review of systems, and the findings as documented in the limited radiology technician and also performed a pertinent examination [...] performed at the request of the primary patient services rep. Adult probe inserted without difficulty. LEFT VENTRICLE:Normal [...] Agitated saline injection(s) performed during sedation. No waruv-nj-oaqc shunt at atrial level at rest or [...] Sedation Narrator or other pertinent record in [facility] for additional procedure and sedation information. Physician signature for procedural medications and patient discharge when DC criteria met. For the complete report, see the Order-Level Documents. Narrative 07/02/2023 11:11 AM WATCHMAKER APPRENTICE For the complete report, see the Order-Level Documents. Hemodynamics Heart Rate: 61 BPM Blood Pressure: 121 / 72 mmHg ECG: Atrial fibrillation Final Impressions 1. Transesophageal echocardiogram performed at the request of the primary patient services rep. 2. Status post 29mm [facility] Epic [...] intracardiac mass or thrombus identified. 10. No byuze-py-eupd shunt at atrial level at rest or [...] performed at the request of the primaryservice window covering sales consultant. 2. Status post 29mm St. [...] intracardiac mass or thrombus identified. 10. No yreoq-sb-ndmj shunt at atrial level at rest or [...] and the findings as documented in the limited radiology technician and alsoperformed a pertinent examination including [...] performed at the request of the primaryservice window covering sales consultant. Adult probe inserted without difficulty. [...] cava. Agitated saline injection(s) performed during sedation. Fainwaq-go-geuz shunt at atrial level at rest or [...] See Sedation Narrator orother pertinent record in [facility] for additional procedure and sedationinformation. Physician signature for procedural medications and patientdischarge when DC criteria met. For the complete report, see the Order-Level Documents. Emi Georges APRN, C.N.P., M.S ., M.S.N. CV ECHO PROCEDURES * (TTE) 2D LIMITED WITH COLOR AND DOPPLER (06/21/2023 4:41 PM WATCHMAKER APPRENTICE) Ejection Fraction 52 MC CV EIMS Mid-Ascending [...] Region Laterality Modality Echocardiography 06/21/2023 2:56 PM WATCHMAKER APPRENTICE Impressions 06/21/2023 5:15 PM WATCHMAKER APPRENTICE Hemoglobin 9.9 g/dL (22-OCT-2022). LEFT VENTRICLE:Normal left [...] the Order-Level Documents. Narrative 06/21/2023 5:15 PM WATCHMAKER APPRENTICE For the complete report, see the Order-Level [...] * 6 MINUTE WALK (06/21/2023 1:00 PM WATCHMAKER APPRENTICE) Narrative Rose Marie Mascorro APRN, C.N.P., M.S.N. - 06/21/2023 1:00 PM WATCHMAKER APPRENTICE Rose Marie Mascorro APRN, C.N.P., M.S.N. ? [...] - Somewhat Severe Time of Test: ??13:00 WATCHMAKER APPRENTICE Total Distance Walked (Feet): ??790 Total Distance Walked (Meters): ??240.79 Total # of Times Stopped: ??0 Time Stopped (Seconds): ??0 Time Walked (Seconds): ??360 CALCULATIONS Estimated MPH: ??1.5 Estimated METs: ??2.15 % of Predicted Distance: ??61.15 Emi Georges APRN, C.N.P., M.S ., M.S.N. CV STRESS PROCEDURES * ECG 12 Lead (06/21/2023 10:17 AM WATCHMAKER APPRENTICE) Ventricular Rate ECG/Min 79 BPM MUSE QRSD Interval 88 ms MUSE QT Interval 392 ms MUSE QTC Interval 449 ms MUSE R [place] 106 degrees MUSE T Wave [place] 6 degrees MUSE 06/21/2023 10:1 7 AM WATCHMAKER APPRENTICE 06/21/2023 10:27 AM WATCHMAKER APPRENTICE Impressions MUSE - 06/21/2023 10:27 AM WATCHMAKER APPRENTICE Atrial fibrillation Rightward axis Nonspecific ST and [...] ., M.S.N. ECG ORDERABLES Performing Organization Address [facility] Co de Phone Number MUSE NA * (ABNORMAL) NT-Pro B-Type Natriuretic Peptide (BNP) (06/21/2023 9:28 AM WATCHMAKER APPRENTICE) NT-Pro BNP 9686(H) <=540 pg/mL 06/21/2023 11:07 AM WATCHMAKER APPRENTICE DTL Comment: NT-proBNP values less than 300 [...] failure. Blood (Blood, Venous) 06/21/2023 9:28 AM WATCHMAKER APPRENTICE 06/21/2023 10:10 AM WATCHMAKER APPRENTICE Emi Georges APRN, Tristian.NVikasP., M.S ., M.S.N. LAB BLOOD ADD-ON [facility] [address] [place] [address], [place] DTL [facility] [address] [place] [address] * (ABNORMAL) Sedimentation Rate (06/21/2023 9:28 AM WATCHMAKER APPRENTICE) Sedimentation Rate, B 30(H) 3 - 28 mm/h 06/21/2023 11:21 AM WATCHMAKER APPRENTICE DTL Blood (Blood, Venous) 06/21/2023 9:28 AM WATCHMAKER APPRENTICE 06/21/2023 9:56 AM WATCHMAKER APPRENTICE Tristian Thompson APRN.N.Ave., M.S. LAB BLOOD ADD-ON Performing Organization Address City/[facility] Co de Phone Number [facility] [address] [place] [address] * (ABNORMAL) CRP (C-Reactive Protein) (06/21/2023 9:28 AM WATCHMAKER APPRENTICE) C-Reactive Protein (CRP), S 41.6(H) <5.0 mg/L 06/21/2023 11:07 AM WATCHMAKER APPRENTICE DT Blood (Blood, Venous) 06/21/2023 9:28 AM WATCHMAKER APPRENTICE 06/21/2023 10:10 AM WATCHMAKER APPRENTICE Tristian Thompson APRN.N.P., M.S. LAB BLOOD ADD-ON Performing Organization Address City/[facility] Co de Phone Number [facility] [address] [place] [address] * (ABNORMAL) Uric Acid (06/21/2023 9:28 AM WATCHMAKER APPRENTICE) Uric Acid, S 11.1(H) 2.7 - 6.1 mg/dL 06/21/2023 11:07 AM WATCHMAKER APPRENTICE DTL Blood (Blood, Venous) 06/21/2023 9:28 AM WATCHMAKER APPRENTICE 06/21/2023 10:10 AM WATCHMAKER APPRENTICE Tristian Thompson APRN.N.P., M.S. LAB BLOOD ADD-ON [facility] [address] [place], [place] [id number] [place] [address] [address] [place] [address] * (ABNORMAL) BUN (Blood Urea Nitrogen) (06/21/2023 9:28 AM WATCHMAKER APPRENTICE) BUN (Blood Urea Nitrogen), S 51(H) 6 - 21 mg/dL 06/21/2023 11:07 AM WATCHMAKER APPRENTICE DTL Blood (Blood, Venous) 06/21/2023 9:28 AM WATCHMAKER APPRENTICE 06/21/2023 10:10 AM WATCHMAKER APPRENTICE Emi Georges APRN, C.N.P., M.S ., M.S.N. LAB BLOOD ADD-ON Performing Organization Address City/[facility]/ZIP Co de Phone Number [facility] [address] [place] [address] * AST (Aspartate Aminotransferase) (06/21/2023 9:28 AM WATCHMAKER APPRENTICE) Aspartate Aminotransferase (AST), S 26 8 - 43 U/L 06/21/2023 11:07 AM WATCHMAKER APPRENTICE DT Blood (Blood, Venous) 06/21/2023 9:28 AM WATCHMAKER APPRENTICE 06/21/2023 10:10 AM WATCHMAKER APPRENTICE Rosa Bolton APRN C.N.P., M.S. LAB BLOOD ADD-ON [facility] [address] [place], [place] [id number] [place] [address] [address] [place] [address] * Sodium (06/21/2023 9:28 AM WATCHMAKER APPRENTICE) Sodium, S 135 135 - 145 mmol/L 06/21/2023 11:07 AM WATCHMAKER APPRENTICE DTL Blood (Blood, Venous) 06/21/2023 9:28 AM WATCHMAKER APPRENTICE 06/21/2023 10:10 AM WATCHMAKER APPRENTICE Emi Georges APRN, C.N.P., M.S ., M.S.N. LAB BLOOD ADD-ON Performing Organization Address [facility] Co de Phone Number [facility] [address] [place] [address] * Potassium (06/21/2023 9:28 AM WATCHMAKER APPRENTICE) Potassium, S 4.3 3.6 - 5.2 mmol/L 06/21/2023 11:07 AM WATCHMAKER APPRENTICE DTL Blood (Blood, Venous) 06/21/2023 9:28 AM WATCHMAKER APPRENTICE 06/21/2023 10:10 AM WATCHMAKER APPRENTICE Emi Georges APRN, C.N.P., M.S ., M.S.N. LAB BLOOD ADD-ON Performing Organization Address [facility] Co de Phone Number [facility] [address] [place] [address], [place] [address] * (ABNORMAL) Creatinine with Estimated GFR (06/21/2023 9:28 AM WATCHMAKER APPRENTICE) Creatinine 1.98(H) 0.59 - 1.04 mg/dL 06/21/2023 11:07 AM WATCHMAKER APPRENTICE DTL Estimated GFR (eGFR) 25(L) >=60 mL/min/BSA 06/21/2023 11:07 AM WATCHMAKER APPRENTICE DTL Comment: Estimated GFR calculated using the 2020 CKD_EPI creatinine equation. Blood (Blood, Venous) 06/21/2023 9:28 AM WATCHMAKER APPRENTICE 06/21/2023 10:10 AM WATCHMAKER APPRENTICE Emi Georges APRN, C.N.P., M.S ., M.S.N. LAB BLOOD ADD-ON [facility] [address] [place] [address], [facility] DTL [facility] [address] [place] [address] from Last 3 Months
--- OUTSIDE RECORDS SUMMARY | 2023-08-19 16:06 | XMS_ITS | Encounter Summary ---
Author Name Unknown Organization [facility] Address [address] [place] [address] Care Team Providers Care Cottage Attendant Name Role Phone Elsewhere, Pcp Primary Care Provider Unavailabl e Reason for Referral * Outpatient (Routine) - Authorized Specialty Diagnoses / Procedures Referred By Mignon garcia Referred To Contact Rheumatology Rosa Bolton APRN C.N.P., M.S. [address] [place] [phone] [facility] Referral ID Status Reason Start Date Expiration Date V isits Requested Visits Authorized [id number] Authorized 07/06/2023 01/04/2025 1 1 ETING CLERK Reason for Visit * Outpatient (Routine) - Closed Specialty Diagnoses / Procedures Referred By Mignon garcia Referred To Contact Rheumatology Rosa Bolton APRN, C.N.P., M.S. [address] [place] [phone] [facility] Referral ID Status Reason Start Date Expiration Date Visits Re quested Visits Authorized [id number] Closed 11/12/2022 11/11/2025 1 1 Encounter Details Date Type Department Care Team ([facility] st Contact Info) Description 07/06/2023 11:15 AM MARKETING CLERK Office Visit Division of Rheumatology in [place], [place] [address] [place] [address] Rosa Bolton APRN, C.N.P., M.S. [address] [place] [address] Arthritis Rheumatoid (HCC) (Primary Dx) Social History [...] often do you attend chur ch or rastafari services? More than 4 times per year 03/27/2022 Do you belong to any clubs o r organizations such as mosque groups, unions, fraternal or athletic groups, or [...] Answer Date Recorded PHQ-2 Score 3 09/24/2021 [facility] - Occupational [...] place to sleep or slept in a prison (including now)? No 03/27/2022 Depression Answer Date [...] (0-28) 0 Patient global assessment (0-100) -- Contact Lens Molder global assessment (0-100) 5 ESR (mm/h) 16 CRP (mg/L) 9.4 Disease Activity Score 28 using ESR ([id number]) -- Disease Activity Score 28 using CRP ([id number]) -- Clinical Disease Activity Index (CDAI) -- [...] they verbalized understanding and agreed with plan. ETING CLERK documented in this encounter Plan of Treatment [...] documented as of this encounter Care Teams Cottage Attendant Relationship Specialty Start Date End Date Elsewhere, Pcp PCP - General Internal Medicine 04/08/22 documented as of this encounter
--- OUTSIDE RECORDS SUMMARY | 2023-08-19 16:06 | XMS_ITS | Encounter Summary ---
Author Name Unknown Organization [facility] Address [address] [place] [address] Care Team Providers Care Crystal Growing Technician Name Role Phone Elsewhere, Pcp Primary Care Provider Unavailabl e Reason for Referral * Outpatient (Routine) - Closed Specialty Diagnoses / Procedures Referred By Mignon garcia Referred To Contact Diagnoses Chronic Diastolic (Congestive) Heart Failure (HCC) Procedures Six Minute Walk Emi Wilson APRN, C.N.P., M.S., M.S.N. [address] [place] [phone] [facility] Referral ID Status Reason Start Date Expiration Date Visits Re quested Visits Authorized [id number] Closed 10/22/2022 10/22/2023 1 1 INSTALLATION AND SERVICER Reason for Visit * Outpatient (Routine) - Closed Specialty Diagnoses / Procedures Referred By Mignon garcia Referred To Contact Diagnoses Chronic Diastolic (Congestive) Heart Failure (HCC) Procedures Six Minute Walk Emi Wilson APRN, C.N.P., M.S., M.S.N. [address] [place] [phone] [facility] Referral ID Status Reason Start Date Expiration Date Visits Re quested Visits Authorized [id number] Closed 10/22/2022 10/22/2023 1 1 Encounter Details Date Type Department Care Team (Latest Contact Info) Description 06/21/2023 12:40 PM PUMP INSTALLATION AND SERVICER - 06/21/2023 1:56 PM PUMP INSTALLATION AND SERVICER Hospital Encounter Department of Cardiac Rehabilitation in [place], [place] [address] [place] [address] Emi Wilson APRN, C.N.P., M.S., M.S.N. [address] [place] [phone] Chronic Diastolic (Congestive) Heart Failure (HCC) Discharge [...] week 03/27/2022 How often do you attend [facility] or yarsani services? More than 4 times per year [...] Answer Date Recorded PHQ-2 Score 3 09/24/2021 [facility] Occupat ional [facility] - Occupational Stress Questionnaire Answer Date Recorded [...] place to sleep or slept in a jail (including now)? No 03/27/2022 Depression Answer Date [...] or chew. 180 tablet 3 10/22/2022 10/22/2023 afntluqhfvfq-nsrx-UV-C a-minerals (THERAPEUTIC-M) 400 mcg (folic acid) per [...] - Somewhat Severe Time of Test: 13:00 PUMP INSTALLATION AND SERVICER Total Distance Walked (Feet): 790 Total Distance Walked (Meters): 240.79 Total # of Times Stopped: 0 Time Stopped (Seconds): 0 Time Walked (Seconds): 360 CALCULATIONS Estimated MPH: 1.5 Estimated METs: 2.15 % of Predicted Distance: 61.15 Interpretation: Six minute walk was reviewed. I agree with the reported results. INSTALLATION AND SERVICER documented in this encounter Plan of Treatment Not on file documented as of this encounter Procedures Procedure Name Priority Date/Time Associated Diagnosis Comments 6 MINUTE WALK Routine 06/21/2023 1:00 PM PUMP INSTALLATION AND SERVICER Chronic Diastolic (Congestive) Heart Failure (HCC) documented in this encounter Results * 6 MINUTE WALK (06/21/2023 1:00 PM PUMP INSTALLATION AND SERVICER) Narrative Rose Marie Mascorro APRN, C.N.P., M.S.N. - 06/21/2023 1:00 PM PUMP INSTALLATION AND SERVICER Rose Marie Mascorro APRN, C.N.P., M.S.N. ? [...] - Somewhat Severe Time of Test: ??13:00 PUMP INSTALLATION AND SERVICER Total Distance Walked (Feet): ??790 Total Distance [...] documented as of this encounter Care Teams Crystal Growing Technician Relationship Specialty Start Date End Date Elsewhere, Pcp PCP - General Internal Medicine 04/08/22 documented as of this encounter
--- OUTSIDE RECORDS SUMMARY | 2023-08-19 16:06 | XMS_ITS | Encounter Summary ---
Author Name Unknown Organization [facility] Address [address] [place] [address] Care Team Providers Care Handstitching Machine Collar Feller Name Role Phone Elsewhere, Pcp Primary Care Provider Unavailabl e Reason for Referral * Outpatient (Routine) - Authorized Specialty Diagnoses / Procedures Referred By Contac t Referred To Contact Diagnoses Dyspnea On Exertion Sarcoidosis Pulmonary (HCC) Procedures ECG 12 Lead Eloy Cabrera M.D. 200 [place] [phone] [facility] Referral ID Status Reason Start Date Expiration Date V isits Requested Visits Authorized [id number] Authorized 07/12/2023 07/11/2024 1 1 CARE ASSISTANT * Outpatient (Routine) - Authorized Specialty Diagnoses / Procedures Referred By Contac t Referred To Contact Diagnoses Dyspnea On Exertion Sarcoidosis Pulmonary (HCC) Procedures DX Chest AP or PA and Lateral 2 Views Eloy Cabrera M.D. 200 [place] [phone] [facility] Referral ID Status Reason Start Date Expiration Date V isits Requested Visits Authorized [id number] Authorized 07/12/2023 07/11/2024 1 1 CARE ASSISTANT * Outpatient (Routine) - Authorized Specialty Diagnoses / Procedures Referred By Mignon garcia Referred To Contact Pulmonary Medicine Diagnoses Dyspnea On Exertion Sarcoidosis Pulmonary (HCC) Eloy Cabrera M.D. [address] [place] [phone] [facility] Referral ID Status Reason Start Date Expiration Date V isits Requested Visits Authorized [id number] Authorized 07/12/2023 01/10/2025 1 1 CARE ASSISTANT Reason for Visit * Outpatient (Routine) - Closed Specialty Diagnoses / Procedures Referred By Mignon garcia Referred To Contact Pulmonary Medicine Diagnoses Dyspnea On Exertion Sarcoidosis Pulmonary (HCC) Acute On Chronic Diastolic (Congestive) Heart Failure (HCC) Eloy Cabrera M.D. [address] [place] [phone] [facility] Referral ID Status Reason Start Date Expiration Date Visits Re quested Visits Authorized [id number] Closed 11/09/2022 11/08/2025 1 1 Encounter Details Date Type Department Care Team (Late st Contact Info) Description 07/09/2023 2:00 PM PET CARE ASSISTANT Office Visit Division of Pulmonary Medicine in [place], [place] [address] [place] [phone] Eloy Cabrera M.D. [address] [place] [phone] Sarcoidosis Pulmonary (HCC) (Primary Dx); Dyspnea On [...] How often do you attend chur or christian services? More than 4 times per year 03/27/2022 Do you belong to any clubs o r organizations such as evangelical groups, unions, fraternal or athletic groups, or [...] Answer Date Recorded PHQ-2 Score 3 09/24/2021 [facility] of Occupat ional Health - Occupational Stress [...] place to sleep or slept in a group home (including now)? No 03/27/2022 Depression Answer [...] - Oxygen Saturation 93% 07/09/2023 1:50 PM PET CARE ASSISTANT Inhaled Oxygen Concentration - - Weight - - Height - - Body Mass Index - - documented in this encounter Patient Instructions * Patient Instructions* Eloy Cabrera M.D. - 07/09/2023 2:00 PM PET CARE ASSISTANT - Please obtain an eye exam. Recommend eye exam (slit lamp, fundoscopy, and tonometry) yearly for sarcoidosis, note this can be combined with Plaquenil eye exam monitoring CARE ASSISTANT documented in this encounter Progress Notes * Eloy Cabrera M.D. - 07/09/2023 2:00 PM CST PULMONARY MEDICINE PROGRESS NOTE SUBJECTIVE CHIEF COMPLAINT / REASON FOR VISIT Follow up of pulmonary sarcoidosis HISTORY OF PRESENT ILLNESS Ms. Chen is a 78 y.o. female nonsmoker from [place], [place] with medical comorbidities notablefor presumed nodular [...] not in the past month with her animal trainer out of town. Patient endorses rare [...] a day. Do not crush or chew. yhqyvyhddqlp-twgs-NK-Ca-minerals (THERAPEUTIC-M) 400 mcg (folic acid) per tablet [...] her sarcoidosis is probably not the main bulk tank driver of her current dyspnea and not likely significantly changing based on present imaging and PFTs, we will obtain additional lab testing to round out screening labs. Recommend follow-up in 6 months for pulmonary sarcoidosis when she returns for other [place] evaluation, then could potentially be spaced back [...] Patient case to be discussed with supervising travel service consultant, Dr. Quintanilla. PATIENT EDUCATION Learning needs assessment was performed. No learning barriers were identified. Explained diagnosis and treatment plan. Patient expressed understanding and was able to teach back. CARE ASSISTANT documented in this encounter Plan of Treatment [...] (ABNORMAL) Comprehensive Metabolic Panel (07/09/2023 2:54 PM PET CARE ASSISTANT) Potassium, S 5.2 3.6 - 5.2 mmol/L 07/09/2023 4:08 PM PET CARE ASSISTANT DTL Sodium, S 142 135 - 145 mmol/L 07/09/2023 4:08 PM PET CARE ASSISTANT DTL Chloride, S 101 98 - 107 mmol/L 07/09/2023 4:08 PM PET CARE ASSISTANT DTL Bicarbonate, S 27 22 - 29 mmol/L 07/09/2023 4:08 PM PET CARE ASSISTANT DTL Anion Gap 14 7 - 15 07/09/2023 4:08 PM PET CARE ASSISTANT DTL BUN (Blood Urea Nitrogen), S 70(H) 6 - 21 mg/dL 07/09/2023 4:08 PM PET CARE ASSISTANT DTL Creatinine 2.00(H) 0.59 - 1.04 mg/dL 07/09/2023 4:08 PM PET CARE ASSISTANT DTL Estimated GFR (eGFR) 25(L) >=60 mL/min/BS A 07/09/2023 4:08 PM PET CARE ASSISTANT DTL Comment: Estimated GFR calculated using the 2020 CKD_EPI creatinine equation. Calcium, Total, S 9.2 8.8 - 10.2 mg/dL 07/09/2023 4:08 PM PET CARE ASSISTANT DTL Glucose, S 108 70 - 140 mg/dL 07/09/2023 4:08 PM PET CARE ASSISTANT DTL Protein, Total, S 7.3 6.3 - 7.9 g/dL 07/09/2023 4:08 PM PET CARE ASSISTANT DTL Albumin, S 4.6 3.5 - 5.0 g/dL 07/09/2023 4:08 PM PET CARE ASSISTANT DTL Aspartate Aminotransferase (AST), S 27 8 - 43 U/L 07/09/2023 4:08 PM PET CARE ASSISTANT DTL Alkaline Phosphatase, S 210(H) 35 - 104 U/L 07/09/2023 4:08 PM PET CARE ASSISTANT DTL Alanine Aminotransferase (ALT), S 26 7 - 45 U/L 07/09/2023 4:08 PM PET CARE ASSISTANT DTL Bilirubin, Total, S 0.8 0.0 - 1.2 mg/dL 07/09/2023 4:08 PM PET CARE ASSISTANT DTL Blood (Blood, Venous) 07/09/2023 2:54 PM PET CARE ASSISTANT 07/09/2023 3:19 PM PET CARE ASSISTANT Eloy Cabrera M.D. LAB BLOOD ADD-ON [address] [address] DTL [facility] [address] [place] [address] * (ABNORMAL) CBC without Differential (07/09/2023 2:54 PM PET CARE ASSISTANT) Pathologist [facility] Hemoglobin 8.3(L) 11.6 - 15.0 g/dL 07/09/2023 3:15 PM PET CARE ASSISTANT DTL Hematocrit 26.3(L) 35.5 - 44.9 % 07/09/2023 3:15 PM PET CARE ASSISTANT DTL Erythrocytes 2.74(L) 3.92 - 5.13 x10(12)/L 07/09/2023 3:15 PM PET CARE ASSISTANT DTL MCV 96.0 78.2 - 97.9 fL 07/09/2023 3:15 PM PET CARE ASSISTANT DTL RBC Distrib Width 18.0(H) 12.2 - 16.1 % 07/09/2023 3:15 PM PET CARE ASSISTANT DTL Platelet Count 267 157 - 371 x10(9)/L 07/09/2023 3:15 PM PET CARE ASSISTANT DTL Leukocytes 6.8 3.4 - 9.6 x10(9)/L 07/09/2023 3:15 PM PET CARE ASSISTANT DTL Blood (Blood, Venous) 07/09/2023 2:54 PM PET CARE ASSISTANT 07/09/2023 3:07 PM PET CARE ASSISTANT Eloy Cabrera M.D. LAB BLOOD ADD-ON [facility] [address] [place], [place] [address] [address] [place] [address] * 25-Hydroxyvitamin D2 and D3 (07/09/2023 2:53 PM PET CARE ASSISTANT) Pathologist [facility] 25-Hydroxy D2 5.5 ng/mL 07/13/2023 11:08 AM PET CARE ASSISTANT [facility] 25-Hydroxy D3 51 ng/mL 07/13/2023 11:08 AM PET CARE ASSISTANT [facility] 25-Hydroxy D Total 57 ng/mL 2023 11:08 AM PET CARE ASSISTANT [facility] Comment: Interpretation: 51-80 ng/mL (increased risk of hypercalciuria) ----REFERENCE VALUE---- 25-HYDROXY D TOTAL (D2+D3) Optimum levels in the healthy population are 20-50, patients with bone disease may benefit from higher levels within this range. ----ADDITIONAL INFORMATION---- This test was developed and its performance characteristics determined by [facility] in a manner consistent with CLIA requirements. This test has not been cleared or approved by the U.S. Food and Drug Administration. Blood (Blood, Venous) 07/09/2023 2:53 PM PET CARE ASSISTANT 07/12/2023 7:23 AM PET CARE ASSISTANT Eloy Cabrera M.D. LAB BLOOD ADD-ON Performing Organization Address [facility] Co de Phone Number [facility] [address] [place] [address] [facility] [address] [place] [place] [address] * 1,25-Dihydroxyvitamin D (07/09/2023 2:53 PM PET CARE ASSISTANT) [facility] 1, 25 DIHYDROXYVITAMIN D, S 56 18 - 78 pg/mL 07/13/2023 11:56 PM PET CARE ASSISTANT [facility] Comment: ----ADDITIONAL INFORMATION---- This test was developed and its performance characteristics determined by [facility] in a manner consistent with CLIA requirements. This test has not been cleared or approved by the U.S. Food and Drug Administration. Blood (Blood, Venous) 07/09/2023 2:53 PM PET CARE ASSISTANT 07/12/2023 7:18 AM PET CARE ASSISTANT Eloy Cabrera M.D. LAB BLOOD ADD-ON Performing Organization Address City/[facility]/ZIP Co de Phone Number [facility] [address] [place] [address] [facility] [address] [place] [address] documented in this encounter Visit Diagnoses Diagnosis Sarcoidosis Pulmonary (HCC)- Primary Dyspnea On Exertion Acute On Chronic Diastolic (Congestive) Heart Failure (HCC) documented in this encounter Additional Health Concerns Assessment Noted Time PHQ-9 Depression Total Score: 10 022 2:00 PM CDT documented as of this encounter Care Teams Handstitching Machine Collar Feller Relationship Specialty Start Date End Date Elsewhere, Pcp PCP - General Internal Medicine 04/08/22 documented as of this encounter
--- OUTSIDE RECORDS SUMMARY | 2023-08-19 16:06 | XMS_ITS | Encounter Summary ---
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 [address] [place] [phone] [facility] Referral ID Status Reason Start Date Expiration Date V isits Requested Visits Authorized [id number] Authorized 07/02/2023 07/01/2024 1 1 F ENGINEER'S HELPER * Outpatient (Routine) - Authorized Specialty Diagnoses / Procedures Referred By Contac t Referred To Contact Cardiovascular Disease Emi Wilson APRN, C.N.P., M.S., M.S.N. [address] [place] [phone] [facility] Referral ID Status Reason Start Date Expiration Date V isits Requested Visits Authorized [id number] Authorized 07/02/2023 12/31/2024 1 1 F ENGINEER'S HELPER Reason for Visit * Outpatient (Routine) - Closed Specialty Diagnoses / Procedures Referred By Contac t Referred To Contact Cardiovascular Disease Emi Wilson APRN, C.N.P., M.S., M.S.N. [address] [place] [phone] [facility] Referral ID Status Reason Start Date Expiration Date Visits Re quested Visits Authorized [id number] Closed 06/30/2023 12/29/2024 1 1 Encounter Details Date Type Department Care Team (Latest Contact Info) Description 07/02/2023 2:00 PM CHIEF ENGINEER'S HELPER Office Visit Department of Cardiovascular Medicine in [place], [place] [address] [place] [phone] Emi Wilson APRN, C.N.P., M.S., M.S.N. [address] [place] [phone] Infarction Spleen (Primary Dx); Replacement Mitral Valve [...] often do you attend chur ch or alevism services? More than 4 times per year 03/27/2022 Do you belong to any clubs o r organizations such as mormonism groups, unions, fraternal or athletic groups, or [...] Answer Date Recorded PHQ-2 Score 3 09/24/2021 [facility] of Occupat ional Health - Occupational Stress [...] Comments Blood Pressure 123/74 07/02/2023 1:51 PM CHIEF ENGINEER'S HELPER Pulse 90 07/02/2023 1:51 PM CHIEF ENGINEER'S HELPER Temperature - - Respiratory Rate - - Oxygen Saturation - - Inhaled Oxygen Concentration - - Weight 68.5 kg (150 lb 14.5 oz) 07/02/2023 1:49 PM CHIEF ENGINEER'S HELPER Height 157.7 cm (5' 2.09) 07/02/2023 1:49 PM CS T Body Mass Index 27.52 07/02/2023 1:49 PM CHIEF ENGINEER'S HELPER documented in this encounter Progress Notes * Emi Wilson APRN, C.N.P., M.S., M.S.N. - 07/02/2023 2:00 PM CHIEF ENGINEER'S HELPER Heart Failure Established Note SUBJECTIVE REFERRING PROVIDER: Emi Wilson APRN, C.N.P., M.S., M.S.N. CHIEF COMPLAINT / REASON FOR VISIT Follow-up to transesophageal echocardiogram HISTORY OF PRESENT ILLNESS Ms. Chen is a pleasant 77-year-old female with a history of hypertension, who presented to [facility] with a several-year history of dyspnea with [...] performed at the request of the primary college service officer. 2. Status post [address] [facility] [...] intracardiac mass or thrombus identified. 10. No [id number] shunt at atrial level at rest or [...] Valve Status Post Regurgitation felt only do [id number]. Patient relieved. Follow-up one year. HEART FAILURE [...] documented as of this encounter Care Teams Shrub Grower Relationship Specialty Start Date End Date Elsewhere, Pcp PCP - General Internal Medicine 04/08/22 documented as of this encounter
--- OUTSIDE RECORDS SUMMARY | 2023-08-19 16:06 | XMS_ITS | Encounter Summary ---
Author Name Unknown Organization [facility] Address [address] [place] [address] Care Team Providers Care Dry Cleaning Machine Operator Name Role Phone Elsewhere, Pcp Primary Care Provider Unavailabl e Encounter Details Date Type Department Care Team (Latest Contact Info) Description 07/09/2023 2:45 PM PSYCHOLOGY TECHNICIAN - 07/09/2023 11:59 PM PSYCHOLOGY TECHNICIAN Hospital Encounter Department of Laboratory Medicine and Pathology, [facility] in [place], [place] [address] [place] [address] Eloy Cabrera M.D. [address] [place] [address] Sarcoidosis Pulmonary (HCC) Discharge Disposition: Home or [...] How often do you attend chur or jehovah's witness services? More than 4 times per year 03/27/2022 Do you belong to any clubs o r organizations such as hoahaoism groups, unions, fraternal or athletic groups, or [...] Answer Date Recorded PHQ-2 Score 3 09/24/2021 [facility] - Occupational Stress [...] place to sleep or slept in a mcc (including now)? No 03/27/2022 Depression Answer Date [...] or chew. 180 tablet 3 10/22/2022 10/22/2023 [id number]-C a-minerals (THERAPEUTIC-M) 400 mcg (folic acid) per [...] WITHOUT DIFFERENTIAL, B Routine 07/09/2023 2:54 PM PSYCHOLOGY TECHNICIAN Sarcoidosis Pulmonary (HCC) COMPREHENSIVE METABOLIC PANEL, S/P Routine 07/09/2023 2:54 PM PSYCHOLOGY TECHNICIAN Sarcoidosis Pulmonary (HCC) 1,25-DIHYDROXYVITAMIN D, S Routine 07/09/2023 2:53 PM PSYCHOLOGY TECHNICIAN Sarcoidosis Pulmonary (HCC) 25-HYDROXYVITAMIN D2 AND D3, S Routine 07/09/2023 2:53 PM PSYCHOLOGY TECHNICIAN Sarcoidosis Pulmonary (HCC) documented in this encounter Results * (ABNORMAL) Comprehensive Metabolic Panel (07/09/2023 2:54 PM PSYCHOLOGY TECHNICIAN) [facility] Potassium, S 5.2 3.6 - 5.2 mmol/L 07/09/2023 4:08 PM PSYCHOLOGY TECHNICIAN DTL Sodium, S 142 135 - 145 mmol/L 07/09/2023 4:08 PM PSYCHOLOGY TECHNICIAN DTL Chloride, S 101 98 - 107 mmol/L 07/09/2023 4:08 PM PSYCHOLOGY TECHNICIAN DTL Bicarbonate, S 27 22 - 29 mmol/L 07/09/2023 4:08 PM PSYCHOLOGY TECHNICIAN DTL Anion Gap 14 7 - 15 07/09/2023 4:08 PM PSYCHOLOGY TECHNICIAN DTL BUN (Blood Urea Nitrogen), S 70(H) 6 - 21 mg/dL 07/09/2023 4:08 PM PSYCHOLOGY TECHNICIAN DTL Creatinine 2.00(H) 0.59 - 1.04 mg/dL 07/09/2023 4:08 PM PSYCHOLOGY TECHNICIAN DTL Estimated GFR (eGFR) 25(L) >=60 mL/min/BS A 07/09/2023 4:08 PM PSYCHOLOGY TECHNICIAN DTL Comment: Estimated GFR calculated using the 2020 CKD_EPI creatinine equation. Calcium, Total, S 9.2 8.8 - 10.2 mg/dL 07/09/2023 4:08 PM PSYCHOLOGY TECHNICIAN DTL Glucose, S 108 70 - 140 mg/dL 07/09/2023 4:08 PM PSYCHOLOGY TECHNICIAN DTL Protein, Total, S 7.3 6.3 - 7.9 g/dL 07/09/2023 4:08 PM PSYCHOLOGY TECHNICIAN DTL Albumin, S 4.6 3.5 - 5.0 g/dL 07/09/2023 4:08 PM PSYCHOLOGY TECHNICIAN DTL Aspartate Aminotransferase (AST), S 27 8 - 43 U/L 07/09/2023 4:08 PM PSYCHOLOGY TECHNICIAN DTL Alkaline Phosphatase, S 210(H) 35 - 104 U/L 07/09/2023 4:08 PM PSYCHOLOGY TECHNICIAN DTL Alanine Aminotransferase (ALT), S 26 7 - 45 U/L 07/09/2023 4:08 PM PSYCHOLOGY TECHNICIAN DTL Bilirubin, Total, S 0.8 0.0 - 1.2 mg/dL 07/09/2023 4:08 PM PSYCHOLOGY TECHNICIAN DTL Blood (Blood, Venous) 07/09/2023 2:54 PM PSYCHOLOGY TECHNICIAN 07/09/2023 3:19 PM PSYCHOLOGY TECHNICIAN Eloy Cabrera M.D. LAB BLOOD ADD-ON Performing Organization Address City[facility]/ZIP Co de Phone Number [facility] [address] [place] [address], [facility] 200 [place] [address] * (ABNORMAL) CBC without Differential (07/09/2023 2:54 PM PSYCHOLOGY TECHNICIAN) Hemoglobin 8.3(L) 11.6 - 15.0 g/dL 07/09/2023 3:15 PM PSYCHOLOGY TECHNICIAN DTL Hematocrit 26.3(L) 35.5 - 44.9 % 07/09/2023 3:15 PM PSYCHOLOGY TECHNICIAN DTL Erythrocytes 2.74(L) 3.92 - 5.13 x10(12)/L 07/09/2023 3:15 PM PSYCHOLOGY TECHNICIAN DTL MCV 96.0 78.2 - 97.9 fL 07/09/2023 3:15 PM PSYCHOLOGY TECHNICIAN DTL RBC Distrib Width 18.0(H) 12.2 - 16.1 % 07/09/2023 3:15 PM PSYCHOLOGY TECHNICIAN DTL Platelet Count 267 157 - 371 x10(9)/L 07/09/2023 3:15 PM PSYCHOLOGY TECHNICIAN DTL Leukocytes 6.8 3.4 - 9.6 x10(9)/L 07/09/2023 3:15 PM PSYCHOLOGY TECHNICIAN DTL Blood (Blood, Venous) 07/09/2023 2:54 PM PSYCHOLOGY TECHNICIAN 07/09/2023 3:07 PM PSYCHOLOGY TECHNICIAN Eloy Cabrera M.D. LAB BLOOD ADD-ON Performing Organization Address [facility]/ZIP Co de Phone Number [facility] [address] [place] [address], [facility] D[facility] [address] [place] [address] * 25-Hydroxyvitamin D2 and D3 (07/09/2023 2:53 PM PSYCHOLOGY TECHNICIAN) 25-Hydroxy D2 5.5 ng/mL 07/13/2023 11:08 AM PSYCHOLOGY TECHNICIAN [facility] 25-Hydroxy D3 51 ng/mL 07/13/2023 11:08 AM PSYCHOLOGY TECHNICIAN SDS 25-Hydroxy D Total 57 ng/mL 2023 11:08 AM PSYCHOLOGY TECHNICIAN [facility] Comment: Interpretation: 51-80 ng/mL (increased risk of hypercalciuria) ----REFERENCE VALUE---- 25-HYDROXY D TOTAL (D2+D3) Optimum levels in the healthy population are 20-50, patients with bone disease may benefit from higher levels within this range. ----ADDITIONAL INFORMATION---- This test was developed and its performance characteristics determined by [facility] in a manner consistent with CLIA requirements. This test has not been cleared or approved by the U.S. Food and Drug Administration. Blood (Blood, Venous) 07/09/2023 2:53 PM PSYCHOLOGY TECHNICIAN 07/12/2023 7:23 AM PSYCHOLOGY TECHNICIAN Eloy Cabrera M.D. LAB BLOOD ADD-ON Performing Organization Address [facility]/ZIP Co de Phone Number [facility] [address] [place] [address] [facility] [address] [place] [address] [place] [address] * 1,25-Dihydroxyvitamin D (07/09/2023 2:53 PM PSYCHOLOGY TECHNICIAN) 1, 25 DIHYDROXYVITAMIN D, S 56 18 - 78 pg/mL 07/13/2023 11:56 PM PSYCHOLOGY TECHNICIAN [facility] Comment: ----ADDITIONAL INFORMATION---- This test was developed and its performance characteristics determined by [facility] in a manner consistent with CLIA requirements. This test has not been cleared or approved by the U.S. Food and Drug Administration. Blood (Blood, Venous) 07/09/2023 2:53 PM PSYCHOLOGY TECHNICIAN 07/12/2023 7:18 AM PSYCHOLOGY TECHNICIAN Eloy Cabrera M.D. LAB BLOOD ADD-ON Performing Organization Address [facility]/ZIP Co de Phone Number [facility] [address] [place] [address] [facility] [address] [place] [address] [place] [address] documented in this encounter Visit Diagnoses Diagnosis Sarcoidosis Pulmonary (HCC) documented in this encounter Additional Health Concerns Assessment Noted Time PHQ-9 Depression Total Score: 10 09/24/ 022 2:00 PM CDT documented as of this encounter Care Teams Dry Cleaning Machine Operator Relationship Specialty Start Date End Date Elsewhere, Pcp PCP - General Internal Medicine 04/08/22 documented as of this encounter
--- OUTSIDE RECORDS SUMMARY | 2023-08-19 16:06 | XMS_ITS | Encounter Summary ---
Author Name Unknown Organization [facility] Address [address] [place] [address] Care Team Providers Care Rider Ticket Worker Name Role Phone Elsewhere, Pcp Primary Care Provider Unavailabl e Reason for Visit * Reason Comments Med Refill Encounter Details Date Type Department Care Team ([facility] st Contact Info) Description 08/15/2023 Refill Department of Cardiovascular Medicine in [place], [place] [address] [place] [phone] Emi Wilson APRN, C.N.P., M.S., M.S.N. [address] [place] [phone] Med Refill Social History Tobacco Use Types [...] any clubs o r organizations such as muslim groups, unions, fraternal or athletic groups, or [...] Answer Date Recorded PHQ-2 Score 3 09/24/2021 [facility] Occupat ional Health - Occupational [...] by pharmacy (10/22/2022 1:46 PM CDT) Pharmacy [facility] MAIL DELIVERY - [facility] [address] documented in this encounter Plan of Treatment Not on file documented as of this encounter Visit Diagnoses Not on filedocumented in this encounter Additional Health Concerns Assessment Noted Time PHQ-9 Depression Total Score: 10 022 2:00 PM CDT documented as of this encounter Care Teams Rider Ticket Worker Relationship Specialty Start Date End Date Elsewhere, Pcp PCP - General Internal Medicine 04/08/22 documented as of this encounter
--- OUTSIDE RECORDS SUMMARY | 2023-08-19 16:06 | XMS_ITS | Encounter Summary ---
Author Name Unknown Organization [facility] Address [address] [place] [address] Care Team Providers Care Production Pattern Maker Name Role Phone Elsewhere, Pcp Primary Care Provider Unavailabl e Reason for Referral * Outpatient (Routine) - Closed Specialty Diagnoses / Procedures Referred By Contac t Referred To Contact Diagnoses Replacement Mitral Valve Tissue Infarction Spleen Procedures Echo Transesophageal (DAYNE) Emi Wilson APRN, C.N.P., M.S., M.S.N. [address] [place] [phone] [facility] Referral ID Status Reason Start Date Expiration Date Visits Re quested Visits Authorized [id number] Closed 06/30/2023 06/29/2024 1 1 TIONS ARCHITECT CONSULTANT Reason for Visit * Outpatient (Routine) - Closed Specialty Diagnoses / Procedures Referred By Contac t Referred To Contact Diagnoses Replacement Mitral Valve Tissue Infarction Spleen Procedures Echo Transesophageal (DAYNE) Emi Wilson APRN, C.N.P., M.S., M.S.N. [address] [place] [phone] [facility] Referral ID Status Reason Start Date Expiration Date Visits Re quested Visits Authorized [id number] Closed 06/30/2023 06/29/2024 1 1 Encounter Details Date Type Department Care Team (Latest Contact Info) Description 07/02/2023 8:19 AM SOLUTIONS ARCHITECT CONSULTANT - 07/02/2023 11:59 PM SOLUTIONS ARCHITECT CONSULTANT Hospital Encounter Department of Cardiovascular Diseases in [place], [place] [address] [place] [address] Emi Wilson APRN, C.N.P., M.S., M.S.N. [address] [place] [address] Replacement Mitral Valve Tissue; Infarction Spleen Discharge [...] week 03/27/2022 How often do you attend [facility] or sabianism services? More than 4 times per year 03/27/2022 Do you belong to any clubs o r organizations such as shinto groups, unions, fraternal or athletic groups, or [...] Date Recorded PHQ-2 Score 3 09/24/2021 [facility] - Occupational Stress Questionnaire Answer [...] Comments Blood Pressure 114/74 07/02/2023 10:41 AM SOLUTIONS ARCHITECT CONSULTANT Pulse 74 07/02/2023 10:39 AM SOLUTIONS ARCHITECT CONSULTANT Temperature - - Respiratory Rate 20 07/02/2023 10:39 AM SOLUTIONS ARCHITECT CONSULTANT Oxygen Saturation 93% 07/02/2023 10:39 AM SOLUTIONS ARCHITECT CONSULTANT Inhaled Oxygen Concentration - - Weight - [...] or chew. 180 tablet 3 10/22/2022 10/22/2023 [id number]-lhsf-EP-C a-minerals (THERAPEUTIC-M) 400 mcg (folic acid) per [...] DOPPLER AND CONTRAST Routine 07/02/2023 10:21 AM SOLUTIONS ARCHITECT CONSULTANT Replacement Mitral Valve Tissue Infarction Spleen documented in this encounter Results * (DAYNE) 2D WITH COLOR, LIMITED DOPPLER AND CONTRAST (07/02/2023 10:21 AM SOLUTIONS ARCHITECT CONSULTANT) Ejection Fraction 50 MC CV EIMS Mid-Ascending Aorta 39 MC CV EIMS MV mean gradient 5 MC CV EIMS Anatomical Region Laterality Modality Echocardiography 07/02/2023 8:21 AM SOLUTIONS ARCHITECT CONSULTANT Impressions 07/02/2023 11:11 AM SOLUTIONS ARCHITECT CONSULTANT PRE-SEDATION ASSESSMENT & CONSENT (performed immediately prior to the start of the procedure): The goals, risks and alternatives to moderate sedation and the transesophageal echo were explained to the patient, questions were answered and consent was given to proceed. The physician reviewed the patient's history, medication list, allergies, and review of systems, and the findings as documented in the radio program checker and also performed a pertinent examination [...] performed at the request of the primary service and repair supervisor. Adult probe inserted without difficulty. LEFT VENTRICLE:Normal [...] Agitated saline injection(s) performed during sedation. No fannj-ve-xqbg shunt at atrial level at rest or [...] Sedation Narrator or other pertinent record in [facility] for additional procedure and sedation information. Physician signature for procedural medications and patient discharge when DC criteria met. For the complete report, see the Order-Level Documents. Narrative 07/02/2023 11:11 AM SOLUTIONS ARCHITECT CONSULTANT For the complete report, see the Order-Level Documents. Hemodynamics Heart Rate: 61 BPM Blood Pressure: 121 / 72 mmHg ECG: Atrial fibrillation Final Impressions 1. Transesophageal echocardiogram performed at the request of the primary service and repair supervisor. 2. Status post 29mm [facility] Epic [...] intracardiac mass or thrombus identified. 10. No sdjpy-yu-qrsj shunt at atrial level at rest or [...] performed at the request of the primaryservice collection systems consultant. 2. Status post 29mm [facility] [...] intracardiac mass or thrombus identified. 10. No upary-qq-ldut shunt at atrial level at rest or [...] and the findings as documented in the radio program checker and alsoperformed a pertinent examination including [...] performed at the request of the primaryservice collection systems consultant. Adult probe inserted without difficulty. LEFT [...] cava. Agitated saline injection(s) performed during sedation. Xvdpvwh-ls-czpc shunt at atrial level at rest or [...] See Sedation Narrator orother pertinent record in [facility] for additional procedure and sedationinformation. Physician [...] 0933, Intraprocedure (CV) Given 07/02/2023 10:13 AM SOLUTIONS ARCHITECT CONSULTANT 25 mcg Given 07/02/2023 9:38 AM SOLUTIONS ARCHITECT CONSULTANT 25 mcg Given 07/02/2023 9:33 AM SOLUTIONS ARCHITECT CONSULTANT 25 mcg lidocaine 5 % ointment 1 [...] g of ointment/day Given 07/02/2023 9:23 AM SOLUTIONS ARCHITECT CONSULTANT 1 Application midazolam (PF) injection (VERSED) As needed, Starting on Wed07/02/23 at 0933, Intraprocedure (CV) Given 07/02/2023 10:07 AM SOLUTIONS ARCHITECT CONSULTANT 1 mg Given 07/02/2023 9:56 AM SOLUTIONS ARCHITECT CONSULTANT 1 mg Given 07/02/2023 9:38 AM SOLUTIONS ARCHITECT CONSULTANT 1 mg NaCl 0.9% bacteriostatic 0.9 % injection 40 mL 40 mL, intravenous, As needed, for agitated saline (bubble) studies, Starting on Wed07/02/23 at 0821, Intraprocedure - Diagnostic, See Margarita. Given 07/02/2023 10:16 AM SOLUTIONS ARCHITECT CONSULTANT 20 mL documented in this encounter Additional Health Concerns Assessment Noted Time PHQ-9 Depression Total Score: 10 022 2:00 PM CDT documented as of this encounter Care Teams Production Pattern Maker Relationship Specialty Start Date End Date Elsewhere, Pcp PCP - General Internal Medicine 04/08/22 documented as of this encounter
--- OUTSIDE RECORDS SUMMARY | 2023-08-19 16:06 | XMS_ITS | Encounter Summary ---
Author Name Unknown Organization [facility] Address [address] [place] [address] Care Team Providers Care Team Cdl Driver Name Role Phone Elsewhere, Pcp Primary Care Provider Unavailabl e Reason for Referral * Outpatient (Routine) - Closed Specialty Diagnoses / Procedures Referred By Mignon garcia Referred To Contact Diagnoses Dyspnea On Exertion Sarcoidosis Pulmonary (HCC) Acute On Chronic Diastolic (Congestive) Heart Failure (HCC) Procedures DX Chest AP or PA and Lateral 2 Views Eloy Cabrera M.D. 200 [place] [address] [facility] Referral ID Status Reason Start Date Expiration Date Visits Re quested Visits Authorized [id number] Closed 11/09/2022 11/09/2023 1 1 ES' ASSOCIATION COUNSELOR Reason for Visit * Outpatient (Routine) - Closed Specialty Diagnoses / Procedures Referred By Mignon garcia Referred To Contact Diagnoses Dyspnea On Exertion Sarcoidosis Pulmonary (HCC) Acute On Chronic Diastolic (Congestive) Heart Failure (HCC) Procedures DX Chest AP or PA and Lateral 2 Views Eloy Cabrera M.D. [address] [place] [address] [facility] Referral ID Status Reason Start Date Expiration Date Visits Re quested Visits Authorized [id number] Closed 11/09/2022 11/09/2023 1 1 Encounter Details Date Type Department Care Team (Latest Contact Info) Description 07/09/2023 12:07 PM NURSES' ASSOCIATION COUNSELOR - 07/09/2023 2:44 PM NURSES' ASSOCIATION COUNSELOR Hospital Encounter Department of Radiology, [facility], in [place], [place] [address] [place] [address] Eloy Cabrera M.D. [address] [place] [address] Dyspnea On Exertion; Sarcoidosis Pulmonary (HCC); Acute [...] How often do you attend chur or synagogue services? More than 4 times per year 03/27/2022 Do you belong to any clubs o r organizations such as yazidi groups, unions, fraternal or athletic groups, or [...] Answer Date Recorded PHQ-2 Score 3 09/24/2021 [facility] - Occupational [...] place to sleep or slept in a retirement (including now)? No 03/27/2022 Depression Answer Date [...] or chew. 180 tablet 3 10/22/2022 10/22/2023 lvzxurlefwlf-xzrz-KW-C a-minerals (THERAPEUTIC-M) 400 mcg (folic acid) per [...] inpatients and all outpatients) 07/09/2023 12:21 PM NURSES' ASSOCIATION COUNSELOR Dyspnea On Exertion Sarcoidosis Pulmonary (HCC) Acute On Chronic Diastolic (Congestive) Heart Failure (HCC) documented in this encounter Results * DX Chest AP or PA and Lateral 2 Views (07/09/2023 12:21 PM NURSES' ASSOCIATION COUNSELOR) Anatomical Region Laterality Modality Chest, Thoracic RST LOS, Tho racic ARZ LOS, Thoracic FLA LOS N/A Digital Radiography Impressions 07/09/2023 12:36 PM NURSES' ASSOCIATION COUNSELOR Sternotomy. Tricuspid annuloplasty. Abandoned epicardial pacing leads. Calcified tortuous aorta. Calcified tortuous aorta. Mild enlargement of the cardiac silhouette with pulmonary venous hypertension. Thoracolumbar curve with degenerative changes and compression of mid and lower thoracic vertebral bodies. Eventration right hemidiaphragm. No significant change since outside study of 04/21/2023. The pulmonary nodules identified on the [facility] CT examination of 11/05/2022 are not well demonstrated on current chest radiographs, likely reflecting differences in modality. Narrative 07/09/2023 12:36 PM NURSES' ASSOCIATION COUNSELOR EXAM: ??DX CHEST AP OR PA AND [...] 04/21/2023. The pulmonary nodules identified on the [facility] CTexamination of 11/05/2022 are not well demonstrated [...] documented as of this encounter Care Teams Team Cdl Driver Relationship Specialty Start Date End Date Elsewhere, Pcp PCP - General Internal Medicine 04/08/22 documented as of this encounter
--- OUTSIDE RECORDS SUMMARY | 2023-08-19 16:06 | XMS_ITS | Encounter Summary ---
Author Name Unknown Organization [facility] Address [address] [place] [address] Care Team Providers Care Traffic Survey Technician Name Role Phone Elsewhere, Pcp Primary Care Provider Unavailabl e Reason for Visit * Reason Comments Med Refill Encounter Details Date Type Department Care Team (Late st Contact Info) Description 07/03/2023 Refill Division of Rheumatology in [place], [place] [address] [place] [phone] Rosa Bolton, DIPAK, C.N.P., M.S. [address] [place] [phone] Med Refill Social History Tobacco Use Types [...] often do you attend chur ch or cheondoism services? More than 4 times per year 03/27/2022 Do you belong to any clubs o r organizations such as scientologist groups, unions, fraternal or athletic groups, or [...] Answer Date Recorded PHQ-2 Score 3 09/24/2021 [facility] Occupat ional Health - [...] documented as of this encounter Care Teams Traffic Survey Technician Relationship Specialty Start Date End Date Elsewhere, Pcp PCP - General Internal Medicine 04/08/22 documented as of this encounter
--- OUTSIDE RECORDS SUMMARY | 2023-08-19 16:06 | XMS_ITS | Encounter Summary ---
Author Name Unknown Organization [facility] Address [address] [place] [address] Care Team Providers Care Rug Setter Axminster Name Role Phone Elsewhere, Pcp Primary Care Provider Unavailabl e Reason for Referral * Outpatient (Routine) - Closed Specialty Diagnoses / Procedures Referred By Mignon garcia Referred To Contact Cardiovascular Disease Emi Wilson APRN, C.N.P., M.S., M.S.N. 200 [place] [phone] [facility] Referral ID Status Reason Start Date Expiration Date Visits Re quested Visits Authorized [id number] Closed 06/30/2023 12/29/2024 1 1 UET COORDINATOR * Outpatient (Routine) - Closed Specialty Diagnoses / Procedures Referred By Mignon garcia Referred To Contact Diagnoses Replacement Mitral Valve Tissue Infarction Spleen Procedures Echo Transesophageal (DAYNE) Emi Wilson APRN, C.N.P., M.S., M.S.N. [address] [place] [phone] [facility] Referral ID Status Reason Start Date Expiration Date Visits Re quested Visits Authorized [id number] Closed 06/30/2023 06/29/2024 1 1 UET COORDINATOR Reason for Visit * Outpatient (Routine) - Closed Specialty Diagnoses / Procedures Referred By Mignon garcia Referred To Contact Cardiovascular Disease Emi Wilson APRN, C.N.P., Christina, M.S.N. [address] [place] [phone] [facility] Referral ID Status Reason Start Date Expiration Date Visits Re quested Visits Authorized [id number] Closed 10/22/2022 10/21/2025 1 1 Encounter Details Date Type Department Care Team (Latest Contact Info) Description 06/22/2023 1:00 PM BANQUET COORDINATOR Office Visit Department of Cardiovascular Medicine in [place], [place] [address] [place] [phone] Emi Wilson APRN, C.NJordan, Christina, M.S.N. [address] [place] [phone] Acute Diastolic (Congestive) Heart Failure (HCC) (Primary [...] How often do you attend chur or muslim services? More than 4 times per year [...] Date Recorded PHQ-2 Score 3 09/24/2021 [facility] - [...] Comments Blood Pressure 115/71 06/22/2023 1:07 PM BANQUET COORDINATOR Pulse 70 06/22/2023 1:07 PM BANQUET COORDINATOR Temperature - - Respiratory Rate - - Oxygen Saturation - - Inhaled Oxygen Concentration - - Weight 69.3 kg (152 lb 10.7 oz) 06/22/2023 1:05 PM BANQUET COORDINATOR Height 159.2 cm (5' 2.68) 06/22/2023 1:05 PM CS T Body Mass Index 27.32 06/22/2023 1:05 PM BANQUET COORDINATOR documented in this encounter Progress Notes * Emi Wilson APRN, C.N.P., Christina, M.S.N. - 06/22/2023 1:00 PM BANQUET COORDINATOR Heart Failure Established Note SUBJECTIVE REFERRING PROVIDER: Emi Wilson APRN, C.N.P., Christina, M.S.N. CHIEF COMPLAINT / REASON FOR VISIT Follow-up of heart failure with preserved ejection for HISTORY OF PRESENT ILLNESS Ms. Chen is a pleasant 77-year-old female with a history of hypertension, who presented to [facility] with a several-year history of dyspnea with [...] is a marked improvement. Working with a lead trainer twice weekly and going to [facility] twice weekly. Fleeting chest discomfort, no [...] SGLT2 inhibitor with Dr. Allen Agarwal her inspection manager. He is strongly discouraged utilizing SGLT2. #2 Replacement Mitral Valve Tissue Her gradient has doubled since last echocardiogram. I will discuss with valve. 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 Could be worse due to excessive volume. See above. #4 Chronic Kidney Disease Stage 4 Glomerular Filtration Rate 15-29 ([facility]) Creatinine up to 1.98 and [...] LIMITED DOPPLER AND CONTRAST (07/02/2023 10:21 AM BANQUET COORDINATOR) Ejection Fraction 50 MC CV EIMS Mid-Ascending Aorta 39 MC CV EIMS MV mean gradient 5 MC CV EIMS Anatomical Region Laterality Modality Echocardiography 07/02/2023 8:21 AM BANQUET COORDINATOR Impressions 07/02/2023 11:11 AM BANQUET COORDINATOR PRE-SEDATION ASSESSMENT & CONSENT (performed immediately prior to the start of the procedure): The goals, risks and alternatives to moderate sedation and the transesophageal echo were explained to the patient, questions were answered and consent was given to proceed. The physician reviewed the patient's history, medication list, allergies, and review of systems, and the findings as documented in the wealth management consultant and also performed a pertinent examination including [...] performed at the request of the primary manager of creative services. Adult probe inserted without difficulty. LEFT VENTRICLE:Normal [...] Agitated saline injection(s) performed during sedation. No eqfmz-zp-radx shunt at atrial level at rest or [...] or other pertinent record in [facility] for additional procedure and sedation information. Physician signature for procedural medications and patient discharge when DC criteria met. For the complete report, see the Order-Level Documents. Narrative 07/02/2023 11:11 AM BANQUET COORDINATOR For the complete report, see the Order-Level Documents. Hemodynamics Heart Rate: 61 BPM Blood Pressure: 121 / 72 mmHg ECG: Atrial fibrillation Final Impressions 1. Transesophageal echocardiogram performed at the request of the primary manager of creative services. 2. Status post 29mm [facility] Epic [...] intracardiac mass or thrombus identified. 10. No kvops-ui-cvde shunt at atrial level at rest or [...] performed at the request of the primaryservice vocational rehab consultant. 2. Status post 29mm [facility] [...] intracardiac mass or thrombus identified. 10. No treht-pn-qqvc shunt at atrial level at rest or [...] and the findings as documented in the wealth management consultant and alsoperformed a pertinent examination including a heart, airway and lungassessment. Mallampati Assessment: As documented in the RN pre-procedureassessment. Sedation plan: Transesophageal echo - moderate sedation. ASAphysical status score: Class III. The patient's identity and all neededequipment were confirmed and a final confirmatory pause was performed bythe team immediately prior to start. PROCEDURAL ECHO FINDINGS:Transesophageal echocardiogram performed at the request of the primaryservice vocational rehab consultant. Adult probe inserted without difficulty. LEFT [...] cava. Agitated saline injection(s) performed during sedation. Eurszdr-gj-cagw shunt at atrial level at rest or [...] See Sedation Narrator orother pertinent record in [employer] for additional procedure and sedationinformation. Physician signature [...] documented as of this encounter Care Teams Rug Setter Axminster Relationship Specialty Start Date End Date Elsewhere, Pcp PCP - General Internal Medicine 04/08/22 documented as of this encounter
--- OUTSIDE RECORDS SUMMARY | 2023-08-19 16:06 | XMS_ITS | Encounter Summary ---
Author Name Unknown Organization [facility] Address [address] [place] [address] Care Team Providers Care Paper Twister Tender Name Role Phone Elsewhere, Pcp Primary Care Provider Unavailabl e Reason for Referral * Outpatient (Routine) - Closed Specialty Diagnoses / Procedures Referred By Mignon garcia Referred To Contact Diagnoses Chronic Diastolic (Congestive) Heart Failure (HCC) Procedures Echo Transthoracic (TTE) Emi Wilson APRN, C.N.P., M.S., M.S.N. [address] [place] [phone] [facility] Referral ID Status Reason Start Date Expiration Date Visits Re quested Visits Authorized [id number] Closed 10/22/2022 10/22/2023 1 1 RVISOR PLEATING Reason for Visit * Outpatient (Routine) - Closed Specialty Diagnoses / Procedures Referred By Mignon garcia Referred To Contact Diagnoses Chronic Diastolic (Congestive) Heart Failure (HCC) Procedures Echo Transthoracic (TTE) Emi Wilson APRN, C.N.P., M.S., M.S.N. [address] [place] [phone] [facility] Referral ID Status Reason Start Date Expiration Date Visits Re quested Visits Authorized [id number] Closed 10/22/2022 10/22/2023 1 1 Encounter Details Date Type Department Care Team (Latest Contact Info) Description 06/21/2023 1:57 PM SUPERVISOR PLEATING - 06/21/2023 11:59 PM SUPERVISOR PLEATING Hospital Encounter Department of Cardiovascular Diseases in [place], [place] [address] [place] [phone] Emi Wilson APRN, C.N.P., M.S., M.S.N. [address] [place] [phone] Chronic Diastolic (Congestive) Heart Failure (HCC) Discharge [...] 03/27/2022 How often do you attend [facility] or taoism services? More than 4 times [...] [facility]at ional [facility] - Occupational Stress Questionnaire Answer Date [...] or chew. 180 tablet 3 10/22/2022 10/22/2023 uwrlngitqtfi-fbdy-SY-C a-minerals (THERAPEUTIC-M) 400 mcg (folic acid) per [...] COLOR AND DOPPLER Routine 06/21/2023 4:41 PM SUPERVISOR PLEATING Chronic Diastolic (Congestive) Heart Failure (HCC) documented in this encounter Results * (TTE) 2D LIMITED WITH COLOR AND DOPPLER (06/21/2023 4:41 PM SUPERVISOR PLEATING) Ejection Fraction 52 MC CV EIMS Mid-Ascending [...] Region Laterality Modality Echocardiography 06/21/2023 2:56 PM SUPERVISOR PLEATING Impressions 06/21/2023 5:15 PM SUPERVISOR PLEATING Hemoglobin 9.9 g/dL (22-OCT-2022). LEFT VENTRICLE:Normal left [...] the Order-Level Documents. Narrative 06/21/2023 5:15 PM SUPERVISOR PLEATING For the complete report, see the Order-Level [...] documented as of this encounter Care Teams Paper Twister Tender Relationship Specialty Start Date End Date Elsewhere, Pcp PCP - General Internal Medicine 04/08/22 documented as of this encounter
--- OUTSIDE RECORDS SUMMARY | 2023-08-19 16:07 | XMS_ITS | Encounter Summary ---
Author Name Unknown Organization [facility] Address [address] [place] [address] Care Team Providers Care Spring Former Machine Name Role Phone Elsewhere, Pcp Primary Care Provider Unavailabl e Reason for Visit * Reason Comments Med Refill Encounter Details Date Type Department Care Team (Late st Contact Info) Description 06/08/2023 Refill Division of Rheumatology in [place], [place] [address] [place] [phone] Rosa Bolton, DIPAK, C.N.P., M.S. [address] [place] [phone] Med Refill Social History Tobacco Use Types [...] often do you attend chur ch or amish services? More than 4 times per year 03/27/2022 Do you belong to any clubs o r organizations such as sabianist groups, unions, fraternal or athletic groups, or [...] Answer Date Recorded PHQ-2 Score 3 09/24/2021 [facility] - [...] Paul Ramirez R.N. - 06/11/2023 10:56 AM GENERAL TELLER Refused, see 05/12/23 communication for details. RAL TELLER documented in this encounter Plan of Treatment Not on file documented as of this encounter Visit Diagnoses Diagnosis Arthritis Rheumatoid (HCC) documented in this encounter Additional Health Concerns Assessment Noted Time PHQ-9 Depression Total Score: 10 022 2:00 PM CDT documented as of this encounter Care Teams Spring Former Machine Relationship Specialty Start Date End Date Elsewhere, Pcp PCP - General Internal Medicine 04/08/22 documented as of this encounter
--- OUTSIDE RECORDS SUMMARY | 2023-08-19 16:07 | XMS_ITS | Encounter Summary ---
Author Name Unknown Organization [facility] Address [address] [place] [address] Care Team Providers Care Manager Qa Name Role Phone Elsewhere, Pcp Primary Care Provider Unavailabl e Reason for Visit * Reason Onset Date Comments Med Question 05/12/2023 Encounter Details Date Type Department Care Team (Late st Contact Info) Description 05/12/2023 Clinical Communication Division of Rheumatology in [place], [place] [address] [place] [phone] Rosa Bolton, DIPAK, C.N.P., M.S. [address] [place] [phone] Med Question Social History Tobacco Use Types [...] often do you attend chur ch or anabaptism services? More than 4 times per year 03/27/2022 Do you belong to any clubs o r organizations such as rastafarian groups, unions, fraternal or athletic groups, or [...] on: 05/12/2023 04:58 PM Modules accepted: Orders DRIVER * Telephone Encounter - Noel Davidson R.N. - 05/12/2023 3:51 PM CST Left voice message to call back. Will also send POM to patient. ADDENDUM: Patient returned call. Stated she has been off Plaquenil as we would not refill the medication due to not having an updated eye exam. Advised patient we did send a 90-day supply on 03/25/23 to [facility], receipt confirmed on same date. Patient stated she was never contacted by [facility] that there was a prescription received/ready for delivery. Patient will contact [facility] regarding the Plaquenil. In the interim, would like the Plaquenil sent to [facility] in [place]. Resent. DRIVER documented in this encounter Plan of Treatment Not on file documented as of this encounter Visit Diagnoses Diagnosis Arthritis Rheumatoid (HCC) documented in this encounter Additional Health Concerns Assessment Noted Time PHQ-9 Depression Total Score: 10 022 2:00 PM CDT documented as of this encounter Care Teams Manager Qa Relationship Specialty Start Date End Date Elsewhere, Pcp PCP - General Internal Medicine 04/08/22 documented as of this encounter
--- OUTSIDE RECORDS SUMMARY | 2023-08-19 16:07 | XMS_ITS | Encounter Summary ---
Author Name Unknown Organization [facility] Address [address] [place] [address] Care Team Providers Care Printing Machinist Name Role Phone Elsewhere, Pcp Primary Care Provider Unavailabl e Reason for Visit * Reason Onset Date Comments Pre-visit Intake 06/18/2023 Encounter Details Date Type Department Care Team (Latest Contact Info) Description 06/18/2023 11:15 AM PAINT STOCK CLERK Clinical Communication Virtual Review in [place], [place] [address] [place], [place] [phone] Pre-visit Intake Social History Tobacco Use Types [...] Answer Date Recorded PHQ-2 Score 3 09/24/2021 [facility] Occupat ional Health - Occupational Stress [...] documented as of this encounter Care Teams Printing Machinist Relationship Specialty Start Date End Date Elsewhere, Pcp PCP - General Internal Medicine 04/08/22 documented as of this encounter
--- OUTSIDE RECORDS SUMMARY | 2023-08-19 16:07 | XMS_ITS | Clinical Summary ---
Author Name Unknown Organization [employer] [facility] Address [place], [place] [address] Care Team Providers Care Entry Level Software Engineer Name Role Phone Alcides Gonzalez MD Primary [...] erosions, duodenal angiodysplasia Colonoscopy 06/2013 microscopic colitis detention (current) use of anticoagulants 2013 Atrial fibrillation 06/16/2013 Encounters Date Type Department Care Team Description 08/16/2023 Telephone [facility] [address] [place] [phone] Valentino Maldonado MD Refill Request [...] 36.7 ??C (98 ??F) 07/12/2013 2:37 PM COOL ROOFING INSTALLER Respiratory Rate 22 12/22/2021 2:00 PM CDT [...] Influenza for age 65+ 01/09/2024 Care Teams Entry Level Software Engineer Relationship Specialty Start Date End Date Alcides Gonzalez MD PCP - General Family Practice 06/13/13
--- OUTSIDE RECORDS SUMMARY | 2023-08-19 16:07 | XMS_ITS | Encounter Summary ---
Author Name Unknown Organization [facility] Address [address] [place] [address] Care Team Providers Care Overlock Operator Name Role Phone Elsewhere, Pcp Primary Care Provider Unavailabl e Reason for Visit * Appointment Request (Routine) - Closed Specialty Diagnoses / Procedures Referred By Mignon garcia Referred To Contact Nephrology and Hypertension Referral ID Status Reason Start Date Expiration Date Visits Re quested Visits Authorized [id number] Closed 04/16/2023 04/15/2024 1 1 Encounter Details Date Type Department Care Team (Latest Contact Info) Description 06/01/2023 4:00 PM TONGUE BINDER External Outreach Division of Nephrology and Hypertension in [place], [place] [address] [place] [phone] Luis Agarwal Jr., D.O. 200 [place] [phone] Hypertension And Chronic Kidney Disease Stage 4 [...] 03/27/2022 How often do you attend [facility] or baptist services? More than 4 times per year 03/27/2022 Do you belong to any clubs o r organizations such as sabianism groups, unions, fraternal or athletic groups, or [...] Answer Date Recorded PHQ-2 Score 3 09/24/2021 [facility] - Occupational Stress [...] Comments Blood Pressure 108/62 06/01/2023 4:25 PM TONGUE BINDER Pulse 72 06/01/2023 4:25 PM TONGUE BINDER Temperature - - Respiratory Rate - - Oxygen Saturation - - Inhaled Oxygen Concentration - - Weight 68.9 kg (151 lb 14.4 oz) 06/01/2023 4:25 PM TONGUE BINDER Height 160 cm (5' 2.99) 06/01/2023 4:25 PM TONGUE BINDER Body Mass Index 26.91 06/01/2023 4:25 PM TONGUE BINDER documented in this encounter Progress Notes * Luis Agarwal Jr., D.O. - 06/01/2023 4:00 PM CST Referring Provider: ELSEWHERE, PCP SUBJECTIVE REASON FOR VISIT [place] [facility] Follow-up regards CKD, [...] midepigastric pain. On CT scan here in [place] she was discovered to have a splenic [...] erythrocyte [place] [address] units subQ twice monthly, and we have [...] or chew., Disp: 180 tablet, Rfl: 3 jrjaskkwqzed-lxex-FB-Ca-minerals (THERAPEUTIC-M) 400 mcg (folic acid) per tablet, [...] Time: 35 minutes Luis Agarwal Jr., D.O. UE BINDER documented in this encounter Plan of Treatment [...] documented as of this encounter Care Teams Overlock Operator Relationship Specialty Start Date End Date Elsewhere, Pcp PCP - General Internal Medicine 04/08/22 documented as of this encounter
--- OUTSIDE RECORDS SUMMARY | 2023-08-19 16:07 | XMS_ITS | Encounter Summary ---
Author Name Unknown Organization [facility] Address [address] [place] [address] Care Team Providers Care Final Tester Name Role Phone Elsewhere, Pcp Primary Care Provider Unavailabl e Reason for Visit * Reason Onset Date Comments Rx Prior Authorization 05/13/2023 Plaquenil Encounter Details Date Type Department Care Team (Latest Contact Info) Description 05/13/2023 Clinical Communication Division of Rheumatology in [place], [place] [address] [place] [phone] Rosa Bolton, DIPAK, C.N.P., M.S. [address] [place] [phone] Rx Prior Authorization (Plaquenil) Social History Tobacco [...] How often do you attend chur or amish services? More than 4 times [...] Answer Date Recorded PHQ-2 Score 3 09/24/2021 [facility] Occupat ional Health - [...] on: 06/14/2023 03:50 PM Modules accepted: Orders ICAL TRIALS ASSISTANT * Telephone Encounter - Aliya Worrell - 05/17/2023 8:04 AM CLINICAL TRIALS ASSISTANT PA is approved through May 09, 2024 ICAL TRIALS ASSISTANT documented in this encounter Plan of Treatment Not on file documented as of this encounter Visit Diagnoses Diagnosis Arthritis Rheumatoid (HCC) documented in this encounter Additional Health Concerns Assessment Noted Time PHQ-9 Depression Total Score: 10 022 2:00 PM CDT documented as of this encounter Care Teams Final Tester Relationship Specialty Start Date End Date Elsewhere, Pcp PCP - General Internal Medicine 04/08/22 documented as of this encounter
--- OUTSIDE RECORDS SUMMARY | 2023-08-19 16:07 | XMS_ITS | Encounter Summary ---
Author Name Unknown Organization [facility] Address [address] [place] [id number] Care Team Providers Care Financial Report Service Sales Agent Name Role Phone Elsewhere, Pcp Primary Care Provider Unavailabl e Encounter Details Date Type Department Care Team (Latest Contact Info) Description 06/21/2023 8:30 AM PAIN MANAGEMENT NURSE - 06/21/2023 12:39 PM [facility] Hospital Encounter Department of Laboratory Medicine and Pathology, [facility] in [place], [place] [address] [place] [address] Emi Wilson APRN, C.N.P., M.S., M.S.N. [address] [place] [id number] Chronic Diastolic (Congestive) Heart Failure (HCC); Arthritis [...] How often do you attend chur or sabianism services? More than 4 times [...] Answer Date Recorded PHQ-2 Score 3 09/24/2021 [facility] [place] [facility] Occupat ional Health - Occupational Stress [...] or chew. 180 tablet 3 10/22/2022 10/22/2023 [id number] a-minerals (THERAPEUTIC-M) 400 mcg (folic acid) per [...] PEPTIDE (BNP), S Routine 06/21/2023 9:28 AM PAIN MANAGEMENT NURSE Chronic Diastolic (Congestive) Heart Failure (HCC) SEDIMENTATION RATE, B Routine 06/21/2023 9:28 AM PAIN MANAGEMENT NURSE Arthritis Rheumatoid (HCC) C-REACTIVE PROTEIN (CRP), S/P Routine 06/21/2023 9:28 AM PAIN MANAGEMENT NURSE Arthritis Rheumatoid (HCC) URIC ACID, S/P Routine 06/21/2023 9:28 AM PAIN MANAGEMENT NURSE Arthritis Rheumatoid (HCC) BUN (BLOOD UREA NITROGEN), S/P Routine 06/21/2023 9:28 AM PAIN MANAGEMENT NURSE Chronic Diastolic (Congestive) Heart Failure (HCC) ASPARTATE AMINOTRANSFERASE (AST), S/P Routine 06/21/2023 9:28 AM PAIN MANAGEMENT NURSE Arthritis Rheumatoid (HCC) SODIUM, S/P Routine 06/21/2023 9:28 AM PAIN MANAGEMENT NURSE Chronic Diastolic (Congestive) Heart Failure (HCC) POTASSIUM, S/P Routine 06/21/2023 9:28 AM PAIN MANAGEMENT NURSE Chronic Diastolic (Congestive) Heart Failure (HCC) CREATININE WITH EGFR, S/P Routine 06/21/2023 9:28 AM PAIN MANAGEMENT NURSE Chronic Diastolic (Congestive) Heart Failure (HCC) documented in this encounter Results * (ABNORMAL) Uric Acid (06/21/2023 9:28 AM PAIN MANAGEMENT NURSE) Pathologist [facility] Uric Acid, S 11.1(H) 2.7 - 6.1 mg/dL 06/21/2023 11:07 AM PAIN MANAGEMENT NURSE DTL Blood (Blood, Venous) 06/21/2023 9:28 AM PAIN MANAGEMENT NURSE 06/21/2023 10:10 AM PAIN MANAGEMENT NURSE Rosa Bolton APRN C.N.P., M.S. LAB BLOOD ADD-ON [facility] [address] [place] [address], [facility] [address] [place] [address] * AST (Aspartate Aminotransferase) (06/21/2023 9:28 AM PAIN MANAGEMENT NURSE) Pathologist [facility] Aspartate Aminotransferase (AST), S 26 8 - 43 U/L 06/21/2023 11:07 AM PAIN MANAGEMENT NURSE DTL Blood (Blood, Venous) 06/21/2023 9:28 AM PAIN MANAGEMENT NURSE 06/21/2023 10:10 AM PAIN MANAGEMENT NURSE Tristian Thompson APRN.N.P., M.S. LAB BLOOD ADD-ON Performing Organization Address City/[facility]/ZIP Co de Phone Number [facility] [address] 200 [place] [address] * (ABNORMAL) CRP (C-Reactive Protein) (06/21/2023 9:28 AM PAIN MANAGEMENT NURSE) C-Reactive Protein (CRP), S 41.6(H) <5.0 mg/L 06/21/2023 11:07 AM PAIN MANAGEMENT NURSE DTL Blood (Blood, Venous) 06/21/2023 9:28 AM PAIN MANAGEMENT NURSE 06/21/2023 10:10 AM PAIN MANAGEMENT NURSE Tristian Thompson APRN.N.P., M.S. LAB BLOOD ADD-ON Performing Organization Address City/[facility] Co de Phone Number [facility] [address] [place], [place] [id number] [place] [address] 200 [place] [address] * (ABNORMAL) Sedimentation Rate (06/21/2023 9:28 AM PAIN MANAGEMENT NURSE) Sedimentation Rate, B 30(H) 3 - 28 mm/h 06/21/2023 11:21 AM PAIN MANAGEMENT NURSE DTL Blood (Blood, Venous) 06/21/2023 9:28 AM PAIN MANAGEMENT NURSE 06/21/2023 9:56 AM PAIN MANAGEMENT NURSE Tristian Thompson APRN.N.P., M.S. LAB BLOOD ADD-ON Performing Organization Address City/[facility]/ZIP Co de Phone Number [facility] [address] [place] [address] * Sodium (06/21/2023 9:28 AM PAIN MANAGEMENT NURSE) [facility] Sodium, S 135 135 - 145 mmol/L 06/21/2023 11:07 AM PAIN MANAGEMENT NURSE DT Blood (Blood, Venous) 06/21/2023 9:28 AM PAIN MANAGEMENT NURSE 06/21/2023 10:10 AM PAIN MANAGEMENT NURSE Tristian Tuttle APRN.NChel., M.S ., M.S.N. LAB BLOOD ADD-ON [facility] [address] [place] [address] * Potassium (06/21/2023 9:28 AM PAIN MANAGEMENT NURSE) [facility] Potassium, S 4.3 3.6 - 5.2 mmol/L 06/21/2023 11:07 AM PAIN MANAGEMENT NURSE DT Blood (Blood, Venous) 06/21/2023 9:28 AM PAIN MANAGEMENT NURSE 06/21/2023 10:10 AM PAIN MANAGEMENT NURSE Tristian Tuttle APRN.N.Ave., M.S ., M.S.N. LAB BLOOD ADD-ON [facility] [address] [place], [place] [phone] [place] [address] [address] [place] [address] * (ABNORMAL) NT-Pro B-Type Natriuretic Peptide (BNP) (06/21/2023 9:28 AM PAIN MANAGEMENT NURSE) [facility] NT-Pro BNP 9686(H) <=540 pg/mL 06/21/2023 11:07 AM PAIN MANAGEMENT NURSE DT Comment: NT-proBNP values less than 300 [...] failure. Blood (Blood, Venous) 06/21/2023 9:28 AM PAIN MANAGEMENT NURSE 06/21/2023 10:10 AM PAIN MANAGEMENT NURSE Emi Georges APRN, C.N.P., M.S ., M.S.N. LAB BLOOD ADD-ON [id number] [place] [address] * (ABNORMAL) Creatinine with Estimated GFR (06/21/2023 9:28 AM PAIN MANAGEMENT NURSE) Creatinine 1.98(H) 0.59 - 1.04 mg/dL 06/21/2023 11:07 AM PAIN MANAGEMENT NURSE DTL Estimated GFR (eGFR) 25(L) >=60 mL/min/BSA 06/21/2023 11:07 AM PAIN MANAGEMENT NURSE DTL Comment: Estimated GFR calculated using the 2020 CKD_EPI creatinine equation. Blood (Blood, Venous) 06/21/2023 9:28 AM PAIN MANAGEMENT NURSE 06/21/2023 10:10 AM PAIN MANAGEMENT NURSE Tristian Tuttle APRN.NChel., M.S ., M.S.N. LAB BLOOD ADD-ON [facility] [address] [place], [place] [phone] [place] [address] * (ABNORMAL) BUN (Blood Urea Nitrogen) (06/21/2023 9:28 AM PAIN MANAGEMENT NURSE) BUN (Blood Urea Nitrogen), S 51(H) 6 - 21 mg/dL 06/21/2023 11:07 AM PAIN MANAGEMENT NURSE DTL Blood (Blood, Venous) 06/21/2023 9:28 AM PAIN MANAGEMENT NURSE 06/21/2023 10:10 AM PAIN MANAGEMENT NURSE Emi Georges APRN, C.N.P., M.S ., M.S.N. LAB BLOOD ADD-ON [facility] [address] [place] [address], [facility] [address] [place] [address] documented in this encounter Visit Diagnoses Diagnosis Chronic Diastolic (Congestive) Heart Failure (HCC) Arthritis Rheumatoid (HCC) documented in this encounter Additional Health Concerns Assessment Noted Time PHQ-9 Depression Total Score: 10 09/24/ 022 2:00 PM CDT documented as of this encounter Care Teams Financial Report Service Sales Agent Relationship Specialty Start Date End Date Elsewhere, Pcp PCP - General Internal Medicine 04/08/22 documented as of this encounter
== END 2023-08-17 14:57 | disposition home or self-care (01) ==
LOC: AMB 08-19 16:03
PROVIDERS: PCP Family Medicine; Visit Provider Emergency Medicine
DX: R06.09 Other forms of dyspnea (principal)
CPT/HCPCS: A0425; A0427

== ENCOUNTER 2023-08-17 15:22 | Inpatient (IN) | payer OTHER, SELFPAY ==
[2023-08-17] VITALS (27 sets, daily range): BP systolic 95–161; BP diastolic 65–100; PULSE 72–106; RESP 26–34; TEMP 37.1–38.2; O2SAT 91–98; BMI 24.1
[2023-08-17 15:54] LABS: Troponin, Point-of-Care* 0.15 ng/ml (0.01-0.04)
[2023-08-17 15:57] LABS: Basophils Percent Auto 0.2 % (0.0-3.0); Eosinophils Percent Auto 0.5 % (0.0-7.0); Hematocrit 32.3 % (33.0-51.0); Immature Granulocytes Pct Auto 0.2 %; Lymphocytes Percent Auto 7.8 % (20-44); Mean Corpuscular HGB Conc 31 gm/dL (32-36); Mean Corpuscular Hemoglobin 31 pg (26-34); Mean Corpuscular Volume 99 fL (80-100); Neutrophils Percent Auto 78.3 % (42.0-72.0); Platelet Count* 268 K/uL (140-440); RDW Coefficient of Variation % 20.9 % (11.5-15.5); Red Blood Count 3.28 m/uL (4.00-5.20); White Blood Count* 12.87 K/uL (4.50-11.00)
[2023-08-17 16:00] LABS: Slide Review Reflex No
[2023-08-17 16:13] LABS: PCR FLU A Negative PCR FLU A (Negative); PCR FLU B Negative PCR FLU B (Negative); PCR RSV Negative PCR RSV (Negative); SARS PCR* Negative SARS-CoV-2 (Negative)
[2023-08-17 16:14] LABS: Chloride* 103 mmol/L (96-114)
[2023-08-17 16:15] LABS: Potassium* 3.9 mmol/L (3.6-5.1); Sodium* 138 mmol/L (135-149)
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
[2023-08-17 16:17] LABS: Creatinine* 1.3 mg/dL (0.5-1.5); Est. Creatinine Clearance* 32.09; Estimated Glomerular Filt Rate 42 ml/min
[2023-08-17 16:18] LABS: Anion Gap 7 mEq/L (7-15); Blood Urea Nitrogen* 35 mg/dL (7-30); Calcium* 9.1 mg/dL (8.4-10.6); Carbon Dioxide* 28 mmol/L (20-32); Glucose* 129 mg/dL (60-115)
[2023-08-17 16:45] LABS: pH VBG 7.387 (7.32-7.43)
[2023-08-17 16:46] LABS: HCO3 VBG 26 mmol/L (21-28); PCO2 VBG 45 mmHG (40-50); PO2 VBG 31.2 mmHG (25-47)
--- NOTE | 2023-08-17 16:48 | CT_ITS ---
Patient: CARLA LAYNE Facility:?[facility] Patient ID:?[id number] Site Patient ID:?[id number]. Site :?[id number] Study:?CT-Chest w/o-08/17/2023 6:18:19 PM Ordering Physician:Heber Cuello Final Report: INDICATION: Cough, fever, history of sarcoid. TECHNIQUE: CT chest without contrast. COMPARISON: August 18, 2021. FINDINGS: Lungs and pleura: Right apical scarring. Few scattered right upper lobe nodular opacities, measuring up to 9 millimeters (3/51). Mild mucous plugging in the bilateral lower lobes. Trace right pleural effusion.. No pleural thickening or pneumothorax. Heart and vasculature: Heart size is mildly enlarged. Prosthetic tricuspid valve. Thoracic aorta is normal in caliber. Main pulmonary artery is enlarged measuring up to 35 millimeters in diameter. Postsurgical changes at the anterior aorta. Lymph nodes/mediastinum: Mildly enlarged mediastinal lymph nodes measuring up to 12 millimeters in short axis.. Chest wall: No masses. Upper abdomen: No significant findings. Bones: Compression deformities in the mid and lower thoracic spine. Chronic fracture of the left posterior 8th rib. Sternotomy wires. IMPRESSION: 1. Mucous plugging and mild bronchial wall thickening bilaterally, may be from infectious or inflammatory etiology. 2. Trace right-sided pleural effusion. 3. Similar-appearing pulmonary nodules. 4. Mild mediastinal lymphadenopathy may be reactive or related to history of sarcoid. 5. Interval tricuspid valve replacement. Please note that all CT scans at this facility use dose modulation, iterative reconstruction, and/or weight-based dosing when appropriate to reduce radiation dose to as low as reasonably achievable. Dictated by Jamel Umanzor MD @ 08/17/2023 8:26:15 PM Signed by:?Jamel Umanzor MD @08/17/2023 8:26:15 PM (Electronic Signature)
[2023-08-17 17:03] LABS: Magnesium* 2.2 mg/dL (1.5-2.6)
[2023-08-17] MEDS: IPRAT-ALBUT 0.5-2.5 MG/3 ML NEB 1 NEB IH (17:03)
[2023-08-17] MEDS: METHYLPREDNISOLONE SOD SUCC 62.5 MG/ML (125) 125 MG IVP (17:03)
[2023-08-17] MEDS: ACETAMINOPHEN 500 MG TABLET 1000 MG PO (17:03)
--- OUTSIDE RECORDS SUMMARY | 2023-08-17 17:05 | XMS_ITS | Clinical Summary ---
Author Name Unknown Organization [facility] Address [address] [place] [address] Care Team Providers Care Gallery Or Museum Technician Name Role Phone Elsewhere, Pcp Primary Care Provider Unavailabl e Source Comments Patient records contain information from all sites at [facility]. For routine questions regarding patient records, call [phone] during business hours, M-F 8:00 AM - 5:00 PM Central Time. Record requests for emergency care only can be directed to [phone] at any time.[facility] Allergies Active Allergy Reactions Criticality Noted Date Comments Gabapentin Rash Medium 09/18/2020 Hydrocodone-Acetaminophen GI intolerance Medium 2006 Nausea L-Thyroxine Itching Medium 05/12/2010 And boils/blistering Medications Medication Sig Dispensed Refills Start Date End Date Status iron,carbonyl-vit horton C (VITRON-C) 65 mg iron- [address] tablet Take 1 tablet by mouth daily. 0 7 Active buPROPion XL (WELLBUTRIN XL) 300 mg 24 hr tablet Take 1 tablet by mouth daily. 0 7 Active citalopram (CeleXA) 20 mg tablet Take 20 mg by mouth daily. 0 4 Active acetaminophen (TYLENOL) 500 mg tablet Take 2 tablets (1,000 mg total) by mouth every 6 (six) hours as needed for mild pain or score 1-3 of 10, moderate pain or score 4-6 of 10, headaches or fever. 0 2 Active omeprazole (PriLOSEC) [address] capsule Take 20 mg by mouth daily. In the morning 0 2 Active multivitamin-iron -CO-Lw-mnqajlxl (THERAPEUTIC-M) 400 mcg (folic acid) per tablet Take 1 tablet by mouth daily. 0 2 Active saliva substitution (BIOTENE DRY MOUTH ORAL RINSE) mouthwash Apply 1 application to the mouth or throat as needed (dry mouth). 0 2 Active loperamide (IMODIUM A-D) 2 mg capsule Take 1 capsule (2 mg total) by mouth 3 (three) times a day as needed for diarrhea. 0 2 Active fluticasone propionate (FLONASE) 50 mcg/actuation nasal spray Administer 2 sprays into each nostril daily. 0 Active epoetin tu (EPOGEN,PROCRIT) 10,000 Unit/mL injection Inject under the skin every 14 (fourteen) days. Unsure how many units 0 Active cyanocobalamin (VITAMIN B12) 250 mcg tablet Take 250 mcg by mouth daily. Will check dosage 0 Active folic acid 1 mg tablet Take 1 mg by mouth daily. Will check dosage 0 Active torsemide (DEMADEX) 20 mg tablet Take 3 tablets (60 mg total) by mouth daily. 270 tablet 3 3 Active Additional Information Patient taking differently:60 mg oral Daily,Patient states she takes a extra 3 tablets if weight increases over 5lbs, Reported on 10/22/2022 DME CPAPIndications:A pnea Sleep Obstructive DME Order 1 each 0 3 Active apixaban (ELIQUIS) 5 mg tablet Take 1 tablet (5 mg total) by mouth 2 (two) times a day. 180 tablet 3 3 Active metoprolol succinate (TOPROL-XL) 25 mg 24 hr tablet Take 1 tablet (25 mg total) by mouth 2 (two) times a day. Do not crush or chew. 180 tablet 3 3 10/22/19 24 Active potassium chloride (K-TAB) 20 mEq CR tablet Take 1 tablet (20 mEq total) by mouth daily. 90 tablet 3 3 10/22/19 24 Active Ventolin HFA 90 mcg/actuation inhalerIndication s:Dyspnea On Exertion,Chronic Obstructive Pulmonary Disease (HCC) Inhale 2 puffs every 4 (four) hours as needed for shortness of breath or wheezing. Doesn't take very often 8 g 3 3 Active predniSONE (DELTASONE) 5 mg tabletIndications :Arthritis Rheumatoid (HCC) Take 1 tablet (5 mg total) by mouth daily. Continue through 12/01/2021. 90 tablet 3 3 Active fluticasone furoate-vilantero L (Breo Ellipta) 200-25 mcg/act inhalerIndication s:Dyspnea On Exertion,Chronic Obstructive Pulmonary Disease (HCC) INHALE 1 PUFF EVERY DAY 60 each 10 3 Active levothyroxine (SYNTHROID, LEVOTHROID) 137 mcg tablet Take 137 mcg by mouth every morning before breakfast. 0 Active leflunomide (ARAVA) 10 mg tabletIndications :Arthritis Rheumatoid (HCC) TAKE 1 TABLET EVERY DAY ON WEDNESDAY THROUGH WEDNESDAY DIRECTED (NO MEDICATION ON WEDNESDAY OR WEDNESDAY) 60 tablet 1 4 Active hydroxychloroquin e (PLAQUENIL) 200 mg tabletIndications :Arthritis Rheumatoid (HCC) Take 2 tablets (400 mg total) by mouth every morning. Updated eye exam needed on file 180 tablet 1 4 Active spironolactone (ALDACTONE) 25 mg tablet Take 1 tablet (25 mg total) by mouth daily. 90 tablet 3 2 09/05/19 22 Discontinued dilTIAZem (DILACOR XR/DILT-XR) 120 mg ER capsule Take 120 mg by mouth daily. 0 2 11/01/19 22 Discontinued ferrous sulfate 325 mg (65 mg iron) tablet 325 mg of iron daily. 0 11/01/19 22 Discontinued ipratropium-albut Shelby (DUONEB) 0.5-2.5 mg/3 mL nebulizer solution Inhale 3 mL by nebulization 4 (four) times a day. 180 mL 11 2 11/14/19 22 Discontinued Active Problems Problem Noted Date Diagnosed Date Chronic Obstructive Pulmonary Disease 06/01/2023 Chronic Kidney Disease Stage 4 Glomerular Filtration Rate 15-29 06/08/2022 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 Anemia Of Chronic Renal Disease 06/08/2022 Debility 10/31/2021 Colitis Collagenous 10/31/2021 Hypothyroidism 10/31/2021 Cardiac Surgery Status Post 10/22/2021 Overview: 10/07/2021 MVR, TV repair, LAAL Diarrhea 10/22/2021 Retained Metal Fragments 10/21/2021 Overview: Epicardial pacing wires, cut at skin level Wound Nasal Septum Open Initial 10/15/2021 Pneumonia 10/12/2021 Delirium Acute 10/09/2021 Replacement Mitral Valve Tissue 10/07/2021 Repair Tricuspid Valve Status Post 10/07/2021 Anticoagulant Therapy 10/07/2021 Therapy Fci Antiplatelet 10/07/2021 Anemia Posthemorrhagic Acute (Blood Loss Anemia) 10/07/2021 Azotemia 10/07/2021 Failure Renal Acute With Tubular Necrosis 2021 Postprocedural Hypertension 10/07/2021 Leukocytosis 10/07/2021 Dyspnea Multifactorial 09/24/2021 Non-ST Elevation Myocardial Infarction Arthroplasty Total Knee Replacement Status Post Right 09/24/2021 Thyroidectomy Status Post 09/24/2021 Anemia Iron Deficiency 09/24/2021 Nodules Pulmonary Multiple 09/24/2021 Depression 09/24/2021 Gastroesophageal Reflux Disease NOS 09/24/2021 Hypotension 09/24/2021 Osteoarthritis 09/24/2021 Pain Chest 08/31/2021 Acute Diastolic (Congestive) Heart Failure 11/17 Overview: Added automatically from request for surgery [id number] Apnea Sleep Obstructive 12/13/2017 Overweight Body Mass Index 25-29.9 Adult 018 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 Acute On Chronic Diastolic (Congestive) Heart Fa ilure 11/19/2016 Angiodysplasia Of Stomach And Duodenum Without B leeding 07/31/2013 Atrial Fibrillation Unspecified 06/16/2013 Arthritis Rheumatoid 11/21/2010 Hypertensive Heart With Hear t Failure And Chronic Kidney Disease (CKD) Stage 3b Glomerular Filtration Rate (GFR) 30 To 44 11/17/2006 Resolved Problems Problem Noted Date Diagnosed Date Resolved Date Epistaxis 10/26/2021 10/31/2021 Hypokalemia 10/14/2021 10/22/2021 Rhythm Junctional 10/14/2021 10/22/2021 Sepsis Due To Serratia 10/13/202110/22 Acute Respiratory Failure With Hypoxia 10/13/2021 10/22/2021 Regurgitation Mitral 10/07/2021 022 Hyperglycemia 10/07/2021 10/22/2021 Acidosis Lactic 10/07/2021 10/19/2021 Shock Cardiogenic Postoperative Initial 10/07/2021 10/19/2021 Hyperkalemia 10/07/2021 10/22/2021 Chronic Kidney Disease (CKD) , Stage 3b Glomerular Filtration Rate (GFR) 30 To 44 09/01/2021 10/20/2022 Bacteremia 08/19/2021 10/22/2021 Regurgitation Tricuspid 11/17/201810/08 Overview: Added automatically from request for surgery [id number] Chronic Diastolic (Congestive) Heart Failure 3 09/24/2021 Encounters Date Type Department Care Team Description 08/15/2023 Refill Department of Cardiovascular Medicine in [place], [place] [address] [place] [address] Emi Wilson APRN, C.N.P., M.S., M.S.N. Med Refill 07/09/2023 2:45 PM CORPORATION SECRETARY - 07/09/2023 11:59 PM CORPORATION SECRETARY Hospital Encounter Department of Laboratory Medicine and Pathology, [facility] in [place], [place] [address] [place] [address] Eloy Cabrera M.D. Sarcoidosis Pulmonary (HCC) Discharge Disposition: Home or Self Care 07/09/2023 2:00 PM CORPORATION SECRETARY Office Visit Division of Pulmonary Medicine in [place], [place] [address] [place] [phone] Eloy Cabrera M.D. Sarcoidosis Pulmonary (HCC) (Primary Dx); Dyspnea On Exertion; Acute On Chronic Diastolic (Congestive) Heart Failure (HCC) 07/09/2023 12:07 PM CORPORATION SECRETARY - 07/09/2023 2:44 PM CORPORATION SECRETARY Hospital Encounter Department of Radiology, [place], [place] [address] [place] [address] Eloy Cabrera M.D. Dyspnea On Exertion; Sarcoidosis Pulmonary (HCC); Acute On Chronic Diastolic (Congestive) Heart Failure (HCC) Discharge Disposition: Home or Self Care 07/06/2023 11:15 AM CORPORATION SECRETARY Office Visit Division of Rheumatology in [place], [place] [address] [place] [address] Rosa Bolton APRN, C.N.P., M.S. Arthritis Rheumatoid (HCC) (Primary Dx) 07/03/2023 Refill Division of Rheumatology in [place], [place] [address] [place] [phone] Rosa Bolton APRN, C.N.P., M.S. Med Refill 07/02/2023 2:00 PM CORPORATION SECRETARY Office Visit Department of Cardiovascular Medicine in [place], [place] [address] [place] [phone] Emi Wilson APRN, C.N.P., M.S., M.S.N. Infarction Spleen (Primary Dx); Replacement Mitral Valve Tissue; Repair Tricuspid Valve Status Post; Chronic Diastolic (Congestive) Heart Failure (HCC) 07/02/2023 8:19 AM CORPORATION SECRETARY - 07/02/2023 11:59 PM CORPORATION SECRETARY Hospital Encounter Department of Cardiovascular Diseases in [place], [place] [address] [place] [address] Emi Wilson APRN, C.N.P., M.S., M.S.N. Replacement Mitral Valve Tissue; Infarction Spleen Discharge Disposition: Home or Self Care 06/22/2023 1:00 PM CORPORATION SECRETARY Office Visit Department of Cardiovascular Medicine in [place], [place] [address] [place] [phone] Emi Wilson APRN, C.N.P., M.S., M.S.N. Acute Diastolic (Congestive) Heart Failure (HCC) (Primary Dx); Replacement Mitral Valve Tissue; Repair Tricuspid Valve Status Post; Chronic Kidney Disease Stage 4 Glomerular Filtration Rate 15-29 (HCC); Pulmonary Hypertension Due To Left Heart Disease (HCC); Infarction Spleen; Hypertension Pulmonary (HCC) 06/21/2023 1:57 PM CORPORATION SECRETARY - 06/21/2023 11:59 PM CORPORATION SECRETARY Hospital Encounter Department of Cardiovascular Diseases in [address] [phone] Emi Wilson APRN, C.N.P., M.S., M.S.N. Chronic Diastolic (Congestive) Heart Failure (HCC) Discharge Disposition: Home or Self Care 06/21/2023 12:40 PM CORPORATION SECRETARY - 06/21/2023 1:56 PM CORPORATION SECRETARY Hospital Encounter Department of Cardiac Rehabilitation in [address] [phone] Emi Wilson APRN, C.N.P., M.S., M.S.N. Chronic Diastolic (Congestive) Heart Failure (HCC) Discharge Disposition: Home or Self Care 06/21/2023 8:30 AM CORPORATION SECRETARY - 06/21/2023 12:39 PM CORPORATION SECRETARY Hospital Encounter Department of Laboratory Medicine and Pathology, [facility] in [address] [phone] Emi Wilson APRN, C.N.P., M.S., M.S.N. Chronic Diastolic (Congestive) Heart Failure (HCC); Arthritis Rheumatoid (HCC) Discharge Disposition: Home or Self Care 06/18/2023 11:15 AM [facility] Clinical Communication Virtual Review in [address] [address] Pre-visit Intake 06/08/2023 Refill Division of Rheumatology in [address] [phone] Rosa Bolton APRN, C.N.P., M.S. Med Refill 06/01/2023 4:00 PM CORPORATION SECRETARY External Outreach Division of Nephrology and Hypertension in [address] [phone] Luis Agarwal Jr., D.O. Hypertension And Chronic Kidney Disease Stage 4 (HCC) (Primary Dx); Chronic Kidney Disease Stage 4 Glomerular Filtration Rate 15-29 (HCC); Pulmonary Hypertension Due To Left Heart Disease (HCC); Acute On Chronic Diastolic (Congestive) Heart Failure (HCC); Atrial Fibrillation Unspecified (HCC); Arthritis Rheumatoid (HCC); Apnea Sleep Obstructive; Anemia Of Chronic Renal Disease; Chronic Obstructive Pulmonary Disease (HCC); Hyperparathyroidis m Renal Secondary (HCC); Debility from Last 3 Months Immunizations Name Administration Dates Next Due HZV (ZOSTAVAX) 05/10/2010 Influenza Split 02/07/2013,02/08/2012 PPSV23(Discontinued) 02/09/2011 Td, (Adult) Unspecified 05/12/2010 influenza high dose (65 years or older) (PF) Family History Medical History Relation Name Comments Breast cancer Father rose marie he was 76 Hypertension Father rose marie Rheum arthritis Father rose marie Osteoporosis Mother shelley reyes Skin cancer Sister tressa on face Relation Name Status Comments Father rose marie Mother shelley reyes Sister tressa Social History Tobacco Use Types Packs/Day Years Used Date Smoking Tobacco: Former Cigarettes 1 5 0 05/10/1964 - 05/10/1969 Passive Smoke Exposure: Never Smokeless Tobacco: Never Tobacco Cessation:Counseling Given: Not Answered Alcohol Use Standard Drinks/Week Comments Not Currently 7 (1 standard drink = 0.6 oz pure alcohol) Hasn't had a drink since surgery last September of 2021 Humiliation, Afraid, Rape, and Kick questionnair e Answer Date Recorded Within the last year, have y ou been afraid of your partner or ex-partner? No 03/27/2022 Within the last year, have y ou been humiliated or emotionally abused in other ways by your partner or ex-partner? No Within the last year, have y ou been kicked, hit, slapped, or otherwise physically hurt by your partner or ex-partner? No 03/27/2022 Within the last year, have y ou been raped or forced to have any kind of sexual activity by your partner or ex-partner? No 03/27/2022 Social Connection and Isolat ion Panel [NHANES] Answer Date Recorded In a typical week, how many times do you talk on the phone with family, friends, or neighbors? More than three times a week 03/27/2022 How often do you get togethe r with friends or relatives? Once a week 03/27/2022 How often do you attend chur ch or tenriism services? More than 4 times per year 03/27/2022 Do you belong to any clubs o r organizations such as mandaeism groups, unions, fraternal or athletic groups, or school groups? Yes 03/27/2022 How often do you attend meet ings of the clubs or organizations you belong to? Never 03/27/2022 Are you , , di vorced, , never , or living with a partner? 03/27/2022 AUDIT-C Answer Date Recorded Q1: How often do you have a drink containing alc ohol? Never 03/27/2022 Average Number of Drinks Not on file 022 Frequency of Binge Drinking Not on file 03/10 Overall Financial Resource Strain (CARDIA) Answe r Date Recorded How hard is it for you to pa y for the very basics like food, housing, medical care, and heating? Not hard at all 03/27/2022 PHQ-2 Answer Date Recorded PHQ-2 Score 3 09/24/2021 [facility] - Occupational Stress Questionnaire Answer Date Recorded Do you feel stress - tense, restless, nervous, or anxious, or unable to sleep at night because your mind is troubled all the time - these days? Very much 03/27/2022 Exercise Vital Sign Answer Date Recorde d On average, how many days pe r week do you engage in moderate to strenuous exercise (like a brisk walk)? 7 days Minutes of Exercise per Session Not on file 03/27/2022 Hunger Vital Sign Answer Date Recorded Within the past 12 months, y ou worried that your food would run out before you got the money to buy more. Never true 03/27/20 22 Within the past 12 months, t he food you bought just didn't last and you didn't have money to get more. Never true 03/27/2022 PRAPARE - Transportation Answer Date Re corded In the past 12 months, has l ack of transportation kept you from medical appointments or from getting medications? No 03/10 In the past 12 months, has l ack of transportation kept you from meetings, work, or from getting things needed for daily living? No 03/27/2022 Housing Stability Vital Sign Answer Jarod e Recorded In the last 12 months, was t here a time when you were not able to pay the mortgage or rent on time? No 03/27/2022 In the last 12 months, how many places have you lived? 1 03/27/2022 In the last 12 months, was t here a time when you did not have a steady place to sleep or slept in a custodial (including now)? No 03/27/2022 Depression Answer Date Recor ded PHQ-9 Total Score (max 27) 10 09/24 Nutrition Answer Date Recorded Nutrition: EVOO Fat Source Yes 03/27 On average, how many serving s of fruits and vegetables do you eat per day (serving size is equal to 1 cup or approximately the size of a tennis ball)? 2-3 03/27/2022 Dental Answer Date Recorded Dental: Regular Dentist Yes 03/27/20 Employment Answer Date Recorded Employment status Retired 03/27/2022 Education Answer Date Recorded What is the highest level of school you have completed or the highest degree you have received? Bachelor's degree (e.g., BA, AB, BS) 11/12/2018 Sex and Gender Information Value Date Recorded Sex Assigned at Female 10/06/2017 9:26 AM CDT Gender Identity Female 10/06/2017 9:26 AM CDT Sexual Orientation Straight 10/06/2017 9: 26 AM CDT Last Filed Vital Signs Vital Sign Reading Time Taken Comments Blood Pressure 123/74 07/02/2023 1:51 PM CORPORATION SECRETARY Pulse 90 07/02/2023 1:51 PM CORPORATION SECRETARY Temperature 36.3 ??C (97.3 ??F) 11/14/2021 5:40 AM CD T Respiratory Rate 20 07/02/2023 10:3 9 AM CORPORATION SECRETARY Oxygen Saturation 93% 07/09/2023 1:50 PM CORPORATION SECRETARY Inhaled Oxygen Concentration - - Weight 68.5 kg (150 lb 14.5 oz) 07/02/2023 1:49 PM CORPORATION SECRETARY Height 157.7 cm (5' 2.09) 07/02/2023 1:49 PM CS T Body Mass Index 27.52 07/02/2023 1:49 PM CORPORATION SECRETARY Plan of Treatment Health Maintenance Due Date Last Done Comments Thyroid Stimulating Hormone (TSH) test for thyroid function 09/02/2022 09/02/2021, 12/27/2019, 10/28/2018, Additional history exists Depression Screening (Annual PHQ-2) 05/10/2023 Hydroxychloroquine (PLAQUENI L) Annual Exam 08/16/2023 Office Visit for Blood Pressure Check / Re-check 07/02/2024 07/02/2023 Creatinine Level (Kidney Function Test) 07/08/2024 07/09/2023, 06/21/2023, 10/22/2022, Additional history exists Potassium Level 07/08/2024 07/09/2023, 06/21/2023, 10/22/2022, Additional history exists Sodium Level 07/08/2024 07/09/2023, 06/21/2023, 10/22/2022, Additional history exists DTaP,Tdap,and Td Vaccines (5 - Td or Tdap) 06/06/2030 06/06/2020, 05/12/2010, 02/26/2009, Additional history exists Mammogram Discontinued 03/16/2014 (Perf ormed elsewhere), 03/10/2011 (Performed elsewhere), 01/19/2008 (Performed elsewhere) Pneumococcal vaccine (65+ years) Completed 10/09/2014, 02/09/2011, 01/19/2011, Additional history exists Zoster Vaccines Completed 05/06/2020, 02/29/2020, 01/19/2011, Additional history exists COVID-19 Vaccine Completed 02/15/2023, 02/15/2023, 03/06/2022, Additional history exists Influenza Vaccine Completed 02/15/2023, 02/09/2022, 02/18/2021, Additional history exists Fall Risk Screen (Annual) Completed 07/02/2023 HPV Vaccines Aged Out No longer eligi ble based on patient's age to complete this topic Medical Devices Implanted Type Area Professional Benefits Sales Consultant Device Identifier Shelf Expiration Date Model / Serial / Lot Rng Anulo Mtrl Cnt Trcspd 30 - [id number] - [id number] Implanted:Qty: 1 on 10/07/2021 by Clarence Gee M.D. at [facility] Cardiac Valve Prosthesis N/A: Tricuspid Valve Medtronic 05/18/2026 [id number] / [id number] / Vlv [facility] 29 - [id number] - [id number] Implanted:Qty: 1 on 10/07/2021 by Clarence Gee M.D. at [facility] Cardiac Valve Prosthesis N/A: Mitral Valve Emerson 11/27/2024 E100-29 M-00 / [id number] / Clp Hrzn Ti 6 Clp [facility] - [id number] Implanted:Qty: 1 on 10/07/2021 by Clarence Gee M.D. at [facility] Hardware e.g. pins/screws/ rods N/A: Chest [employer] [id number] / / J J Tib Insert Sigma 4x10.0 - [place] [id number] Implanted:Qty: 1 on 11/22/2006 Knee Implant Other/Legacy - See Implant Description [email or web address] Description:Device Manufactu rer - J [employer]. Body Location - Other. Left. Device Status Text - KNEE [id number]. J J Sig Patella Oval 35 - [place] [id number] Implanted:Qty: 1 on 11/22/2006 Knee Implant Other/Legacy - See Implant Description [employer] Description:Device Manufactu rer - J [employer]. Body Location - Other. Left. Device Status Text - KNEE [id number]. J J Sig Fem Lugged Sz 4.0 Lt - [place] [id number] Implanted:Qty: 1 on 11/22/2006 Knee Implant Other/Legacy - See Implant Description [employer] Description:Device Manufactu rer - J [employer] J Orth[employer]. Body Location - Other. Left. Device Status Text - KNEE [id number]. J J Keel Tray Tib Mb Sz 3.0 - [place] [id number] Implanted:Qty: 1 on 11/22/2006 Knee Implant Other/Legacy - See Implant Description [employer] Description:Device Manufactu rer - J [employer] J Ortho. Body Location - Other. Left. Device Status Text - KNEE [id number]. Misc Other Misc Other Mouth Description:3 lower teeth im planted Misc Other Misc Other Mouth Description:2 teeth implants 2020 Cement Bone Large - [place] [id number] Implanted:Qty: 1 on 11/22/2006 Mis Other Jessica Description:Device Manufactu rer - Jessica Le.. Device Status Text - [id number]. Procedures Procedure Name Priority Date/Time Associated Diagnosis Comments COMPREHENSIVE METABOLIC PANEL, S/P Routine 07/09/2023 2:54 PM CORPORATION SECRETARY Sarcoidosis Pulmonary (HCC) CBC WITHOUT DIFFERENTIAL, B Routine 07/09/2023 2:54 PM CORPORATION SECRETARY Sarcoidosis Pulmonary (HCC) 25-HYDROXYVITAMIN D2 AND D3, S Routine 07/09/2023 2:53 PM CORPORATION SECRETARY Sarcoidosis Pulmonary (HCC) 1,25-DIHYDROXYVITAMIN D, S Routine 07/09/2023 2:53 PM CORPORATION SECRETARY Sarcoidosis Pulmonary (HCC) DX CHEST AP OR PA AND LATERAL 2 VIEWS RAD - Routine (most inpatients and all outpatients) 07/09/2023 12:21 PM CORPORATION SECRETARY Dyspnea On Exertion Sarcoidosis Pulmonary (HCC) Acute On Chronic Diastolic (Congestive) Heart Failure (HCC) PULMONARY FUNCTION TESTS Routine 07/09/2023 10:44 AM CORPORATION SECRETARY Dyspnea On Exertion Sarcoidosis Pulmonary (HCC) Acute On Chronic Diastolic (Congestive) Heart Failure (HCC) (DAYNE) 2D WITH COLOR, LIMITED DOPPLER AND CONTRAST Routine 07/02/2023 10:21 AM CORPORATION SECRETARY 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) 2D LIMITED WITH COLOR AND DOPPLER Routine 06/21/2023 4:41 PM CORPORATION SECRETARY Chronic Diastolic (Congestive) Heart Failure (HCC) 6 MINUTE WALK Routine 06/21/2023 1:00 PM CORPORATION SECRETARY Chronic Diastolic (Congestive) Heart Failure (HCC) ECG Routine 06/21/2023 10:17 AM CORPORATION SECRETARY Chronic Diastolic (Congestive) Heart Failure (HCC) URIC ACID, S/P Routine 06/21/2023 9:28 AM CORPORATION SECRETARY Arthritis Rheumatoid (HCC) ASPARTATE AMINOTRANSFERASE (AST), S/P Routine 06/21/2023 9:28 AM CORPORATION SECRETARY Arthritis Rheumatoid (HCC) C-REACTIVE PROTEIN (CRP), S/P Routine 06/21/2023 9:28 AM CORPORATION SECRETARY Arthritis Rheumatoid (HCC) SEDIMENTATION RATE, B Routine 06/21/2023 9:28 AM CORPORATION SECRETARY Arthritis Rheumatoid (HCC) SODIUM, S/P Routine 06/21/2023 9:28 AM CORPORATION SECRETARY Chronic Diastolic (Congestive) Heart Failure (HCC) POTASSIUM, S/P Routine 06/21/2023 9:28 AM CORPORATION SECRETARY Chronic Diastolic (Congestive) Heart Failure (HCC) NT-PRO B-TYPE NATRIURETIC PEPTIDE (BNP), S Routine 06/21/2023 9:28 AM CORPORATION SECRETARY Chronic Diastolic (Congestive) Heart Failure (HCC) CREATININE WITH EGFR, S/P Routine 06/21/2023 9:28 AM CORPORATION SECRETARY Chronic Diastolic (Congestive) Heart Failure (HCC) BUN (BLOOD UREA NITROGEN), S/P Routine 06/21/2023 9:28 AM CORPORATION SECRETARY Chronic Diastolic (Congestive) Heart Failure (HCC) from Last 3 Months Results * (ABNORMAL) CBC without Differential (07/09/2023 2:54 PM CORPORATION SECRETARY) Hemoglobin 8.3(L) 11.6 - 15.0 g/dL 07/09/2023 3:15 PM CORPORATION SECRETARY DTL Hematocrit 26.3(L) 35.5 - 44.9 % 07/09/2023 3:15 PM CORPORATION SECRETARY DTL Erythrocytes 2.74(L) 3.92 - 5.13 x10(12)/L 07/09/2023 3:15 PM CORPORATION SECRETARY DTL MCV 96.0 78.2 - 97.9 fL 07/09/2023 3:15 PM CORPORATION SECRETARY DTL RBC Distrib Width 18.0(H) 12.2 - 16.1 % 07/09/2023 3:15 PM CORPORATION SECRETARY DTL Platelet Count 267 157 - 371 x10(9)/L 07/09/2023 3:15 PM CORPORATION SECRETARY DTL Leukocytes 6.8 3.4 - 9.6 x10(9)/L 07/09/2023 3:15 PM CORPORATION SECRETARY DTL Blood (Blood, Venous) 07/09/2023 2:54 PM CORPORATION SECRETARY 07/09/2023 3:07 PM CORPORATION SECRETARY Eloy Cabrera M.D. LAB BLOOD ADD-ON [facility] [address] [place] [address], [facility] [address] [place] [address] * (ABNORMAL) Comprehensive Metabolic Panel (07/09/2023 2:54 PM CORPORATION SECRETARY) Pathologist [facility] Potassium, S 5.2 3.6 - 5.2 mmol/L 07/09/2023 4:08 PM CORPORATION SECRETARY DTL Sodium, S 142 135 - 145 mmol/L 07/09/2023 4:08 PM CORPORATION SECRETARY DTL Chloride, S 101 98 - 107 mmol/L 07/09/2023 4:08 PM CORPORATION SECRETARY DTL Bicarbonate, S 27 22 - 29 mmol/L 07/09/2023 4:08 PM CORPORATION SECRETARY DTL Anion Gap 14 7 - 15 07/09/2023 4:08 PM CORPORATION SECRETARY DTL BUN (Blood Urea Nitrogen), S 70(H) 6 - 21 mg/dL 07/09/2023 4:08 PM CORPORATION SECRETARY DTL Creatinine 2.00(H) 0.59 - 1.04 mg/dL 07/09/2023 4:08 PM CORPORATION SECRETARY DTL Estimated GFR (eGFR) 25(L) >=60 mL/min/BS A 07/09/2023 4:08 PM CORPORATION SECRETARY DTL Comment: Estimated GFR calculated using the 2020 CKD_EPI creatinine equation. Calcium, Total, S 9.2 8.8 - 10.2 mg/dL 07/09/2023 4:08 PM CORPORATION SECRETARY DTL Glucose, S 108 70 - 140 mg/dL 07/09/2023 4:08 PM CORPORATION SECRETARY DTL Protein, Total, S 7.3 6.3 - 7.9 g/dL 07/09/2023 4:08 PM CORPORATION SECRETARY DTL Albumin, S 4.6 3.5 - 5.0 g/dL 07/09/2023 4:08 PM CORPORATION SECRETARY DTL Aspartate Aminotransferase (AST), S 27 8 - 43 U/L 07/09/2023 4:08 PM CORPORATION SECRETARY DTL Alkaline Phosphatase, S 210(H) 35 - 104 U/L 07/09/2023 4:08 PM CORPORATION SECRETARY DTL Alanine Aminotransferase (ALT), S 26 7 - 45 U/L 07/09/2023 4:08 PM CORPORATION SECRETARY DTL Bilirubin, Total, S 0.8 0.0 - 1.2 mg/dL 07/09/2023 4:08 PM CORPORATION SECRETARY DTL Blood (Blood, Venous) 07/09/2023 2:54 PM CORPORATION SECRETARY 07/09/2023 3:19 PM CORPORATION SECRETARY Eloy Cabrera M.D. LAB BLOOD ADD-ON Performing Organization Address City/[facility]/ZIP Co de Phone Number [facility] [address] [place] [address], [facility] [address] [place] [address] * 1,25-Dihydroxyvitamin D (07/09/2023 2:53 PM CORPORATION SECRETARY) [facility] 1, 25 DIHYDROXYVITAMIN D, S 56 18 - 78 pg/mL 07/13/2023 11:56 PM CORPORATION SECRETARY [facility] Comment: ----ADDITIONAL INFORMATION---- This test was developed and its performance characteristics determined by [facility] in a manner consistent with CLIA requirements. This test has not been cleared or approved by the U.S. Food and Drug Administration. Blood (Blood, Venous) 07/09/2023 2:53 PM CORPORATION SECRETARY 07/12/2023 7:18 AM CORPORATION SECRETARY Eloy Cabrera M.D. LAB BLOOD ADD-ON Performing Organization Address City/[facility]/ZIP Co de Phone Number [facility] [address] [place] [address] [facility] [address] [place] [address] [place] [address] * 25-Hydroxyvitamin D2 and D3 (07/09/2023 2:53 PM CORPORATION SECRETARY) [facility] 25-Hydroxy D2 5.5 ng/mL 07/13/2023 11:08 AM CORPORATION SECRETARY SDS 25-Hydroxy D3 51 ng/mL 07/13/2023 11:08 AM CORPORATION SECRETARY SDS 25-Hydroxy D Total 57 ng/mL 2023 11:08 AM CORPORATION SECRETARY [facility] Comment: Interpretation: 51-80 ng/mL (increased risk of hypercalciuria) ----REFERENCE VALUE---- 25-HYDROXY D TOTAL (D2+D3) Optimum levels in the healthy population are 20-50, patients with bone disease may benefit from higher levels within this range. ----ADDITIONAL INFORMATION---- This test was developed and its performance characteristics determined by [facility] in a manner consistent with CLIA requirements. This test has not been cleared or approved by the U.S. Food and Drug Administration. Blood (Blood, Venous) 07/09/2023 2:53 PM CORPORATION SECRETARY 07/12/2023 7:23 AM CORPORATION SECRETARY Eloy Cabrera M.D. LAB BLOOD ADD-ON [facility] [address] [place] [address] [facility] [address] [place] [address] [place] [address] * DX Chest AP or PA and Lateral 2 Views (07/09/2023 12:21 PM CORPORATION SECRETARY) Anatomical Region Laterality Modality Chest, Thoracic RST LOS, Tho racic ARZ LOS, Thoracic FLA LOS N/A Digital Radiography Impressions 07/09/2023 12:36 PM CORPORATION SECRETARY Sternotomy. Tricuspid annuloplasty. Abandoned epicardial pacing leads. Calcified tortuous aorta. Calcified tortuous aorta. Mild enlargement of the cardiac silhouette with pulmonary venous hypertension. Thoracolumbar curve with degenerative changes and compression of mid and lower thoracic vertebral bodies. Eventration right hemidiaphragm. No significant change since outside study of 04/21/2023. The pulmonary nodules identified on the [facility] CT examination of 11/05/2022 are not well demonstrated on current chest radiographs, likely reflecting differences in modality. Narrative 07/09/2023 12:36 PM CORPORATION SECRETARY EXAM: ??DX CHEST AP OR PA AND LATERAL 2 VIEWS Procedure Note Shaq Navas M.D., Ph.D. - 07/09/2023 EXAM: DX CHEST AP OR PA AND LATERAL 2 VIEWS IMPRESSION: Sternotomy. Tricuspid annuloplasty. Abandoned epicardial pacing leads.Calcified tortuous aorta. Calcified tortuous aorta. Mild enlargement ofthe cardiac silhouette with pulmonary venous hypertension. Thoracolumbarcurve with degenerative changes and compression of mid and lower thoracic vertebral bodies.Eventration right hemidiaphragm. No significant change since outside studyof 04/21/2023. The pulmonary nodules identified on the [facility] CTexamination of 11/05/2022 are not well demonstrated on current chest radiographs, likely reflecting differencesin modality. Eloy Cabrera M.D. [facility]ED[facility] * Pulmonary Function Tests (07/09/2023 10:44 AM CORPORATION SECRETARY) FVC 1.91 L 07/09/2023 2:00 PM [facility] FEV1 1.06 L 07/09/2023 2:00 PM [facility] FEV1/FVC 55.47 % 07/09/2023 2:00 PM [facility] PXP52-49% 0.35 L/s 07/09/2023 2:00 PM [facility] PEF PRE 3.97 L/s 07/09/2023 2:00 PM [facility] PIF PRE 3.11 L/s 07/09/2023 2:00 PM [facility] FEF 50 % FIF 50 PRE 17.16 % 07/09/2023 2:00 PM [facility] FET PRE 13.45 sec 07/09/2023 2:00 PM [facility] DLCO 5.48 ml/(min*mm Hg) 07/09/2023 2:00 PM [facility] VA 3.11 L 07/09/2023 2:00 PM CORPORATION SECRETARY [facility] TLC 4.42 L 07/09/2023 2:00 PM CORPORATION SECRETARY [facility] FRCPLETH PROVBASE 3.09 L 07/09/2023 2:00 PM CORPORATION SECRETARY [facility] RV 2.48 L 07/09/2023 2:00 PM CORPORATION SECRETARY [facility] RV % TLC PRE 56.01 % 07/09/2023 2:00 PM CORPORATION SECRETARY [facility] 07/09/2023 10:4 4 AM CORPORATION SECRETARY Impressions [facility] - 07/09/2023 2:00 PM CORPORATION SECRETARY Abnormal. Moderate obstruction with possible air trapping. Diffusing capacity (unadjusted for hemoglobin) is severely reduced, consistent with a pulmonary parenchymal or vascular process or anemia. Although technically acceptable, the validity of a very low DLCO is uncertain. Oxygen saturation is normal at rest. Exercise testing was not performed due to irregular baseline heart rate as per protocol. Compared to 11/05/2022, TLC is increased. Narrative Procedure Note Tom Marcus M.D. - 07/09/2023 IMPRESSION: Abnormal. Moderate obstruction with possible air trapping. Diffusingcapacity (unadjusted for hemoglobin) is severely reduced, consistent witha pulmonary parenchymal or vascular process or anemia. Althoughtechnically acceptable, the validity of a very low DLCO is uncertain. Oxygen saturation is normal at rest. Exercisetesting was not performed due to irregular baseline heart rate as perprotocol. Compared to 11/05/2022, TLC is increased. Eloy Cabrera M.D. PFT ORDERABLES [facility] NA * (DAYNE) 2D WITH COLOR, LIMITED DOPPLER AND CONTRAST (07/02/2023 10:21 AM CORPORATION SECRETARY) Ejection Fraction 50 MC CV EIMS Mid-Ascending Aorta 39 MC CV EIMS MV mean gradient 5 MC CV EIMS Anatomical Region Laterality Modality Echocardiography 07/02/2023 8:21 AM CORPORATION SECRETARY Impressions 07/02/2023 11:11 AM CORPORATION SECRETARY PRE-SEDATION ASSESSMENT & CONSENT (performed immediately prior to the start of the procedure): The goals, risks and alternatives to moderate sedation and the transesophageal echo were explained to the patient, questions were answered and consent was given to proceed. The physician reviewed the patient's history, medication list, allergies, and review of systems, and the findings as documented in the hull drafter and also performed a pertinent examination including a heart, airway and lung assessment. Mallampati Assessment: As documented in the RN pre-procedure assessment. Sedation plan: Transesophageal echo - moderate sedation. ASA physical status score: Class III. The patient's identity and all needed equipment were confirmed and a final confirmatory pause was performed by the team immediately prior to start. PROCEDURAL ECHO FINDINGS: Transesophageal echocardiogram performed at the request of the primary emergency services dispatcher. Adult probe inserted without difficulty. LEFT VENTRICLE:Normal left ventricular chamber size. Estimated left ventricular ejection fraction 50%. No regional wall motion abnormalities. RIGHT VENTRICLE:Mildly enlarged right ventricular chamber size. Mildly reduced right ventricular systolic function. ATRIA:Severely enlarged left atrial size. Status post Left Atrial Appendage exclusion (10/07/2021) Enlarged right atrial size. CARDIAC VALVES:Trileaflet aortic valve. Sclerotic aortic valve. Trivial aortic valve regurgitation. 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 Mild-moderate mitral valve prosthetic regurgitation. Mitral valve prosthesis diastolic mean Doppler gradient 5 mmHg (heart rate 60 BPM). Normal pulmonary valve. Trivial pulmonary valve regurgitation. 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 Thickened tricuspid valve. Mild-moderate tricuspid valve regurgitation. OTHER ECHO FINDINGS:Normal ascending aorta diameter. Normal aortic arch. Moderate immobile (atheroma 3-5 mm thickness without ulceration) atherosclerosis of the descending thoracic aorta. Normally connected pulmonary veins. Pulmonary artery bifurcation is normal. Normal superior vena cava. Agitated saline injection(s) performed during sedation. No [id number] shunt at atrial level at rest or with Valsalva release. No intracardiac mass or thrombus identified. No ??pericardial effusion. PROCEDURE NOTES: Procedure performed with appropriate level of sedation. A trained independent observer assisted with monitoring the patient's level of consciousness and physiologic status throughout the procedure, see nursing documentation. The patient tolerated the sedation and procedure well and was released awake, alert, and in good condition. Transesophageal echocardiogram completed without complications. See Sedation Narrator or other pertinent record in [facility] for additional procedure and sedation information. Physician signature for procedural medications and patient discharge when DC criteria met. For the complete report, see the Order-Level Documents. Narrative 07/02/2023 11:11 AM CORPORATION SECRETARY For the complete report, see the Order-Level Documents. Hemodynamics Heart Rate: 61 BPM Blood Pressure: 121 / 72 mmHg ECG: Atrial fibrillation Final Impressions 1. Transesophageal echocardiogram performed at the request of the primary emergency services dispatcher. 2. 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 3. Mild-moderate mitral valve prosthetic regurgitation. 4. Mitral valve prosthesis diastolic mean Doppler gradient 5 mmHg (heart rate 60 BPM). 5. 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 6. Mild-moderate tricuspid valve regurgitation. 7. Estimated left ventricular ejection fraction 50%. 8. Status post Left Atrial Appendage exclusion (10/07/2021) 9. No intracardiac mass or thrombus identified. 10. No kgauk-bv-mtwn shunt at atrial level at rest or with Valsalva release. 11. Moderate immobile (atheroma 3-5 mm thickness without ulceration) atherosclerosis of the descending thoracic aorta. Procedure Note Jhon Santos M.D. - 07/02/2023 For the complete report, see the Order-Level Documents. Hemodynamics Heart Rate: 61 BPM Blood Pressure: 121 / 72 mmHg ECG: Atrial fibrillation Final Impressions 1. Transesophageal echocardiogram performed at the request of the primaryservice new vehicle sales consultant. 2. 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 3. Mild-moderate mitral valve prosthetic regurgitation. 4. Mitral valve prosthesis diastolic mean Doppler gradient 5 mmHg (heartrate 60 BPM). 5. Status post Medtronic tricuspid valve annuloplasty; 30 mm Contour ring(07-OCT-2021). 6. Mild-moderate tricuspid valve regurgitation. 7. Estimated left ventricular ejection fraction 50%. 8. Status post Left Atrial Appendage exclusion (10/07/2021) 9. No intracardiac mass or thrombus identified. 10. No kmwvm-du-qwui shunt at atrial level at rest or with Valsalvarelease. 11. Moderate immobile (atheroma 3-5 mm thickness without ulceration)atherosclerosis of the descending thoracic aorta. Findings PRE-SEDATION ASSESSMENT & CONSENT (performed immediately prior to thestart of the procedure): The goals, risks and alternatives to moderatesedation and the transesophageal echo were explained to the patient,questions were answered and consent was given to proceed. The physicianreviewed the patient's history, medication list, allergies, and review ofsystems, and the findings as documented in the hull drafter and alsoperformed a pertinent examination including a heart, airway and lungassessment. Mallampati Assessment: As documented in the RN pre-procedureassessment. Sedation plan: Transesophageal echo - moderate sedation. ASAphysical status score: Class III. The patient's identity and all neededequipment were confirmed and a final confirmatory pause was performed bythe team immediately prior to start. PROCEDURAL ECHO FINDINGS:Transesophageal echocardiogram performed at the request of the primaryservice new vehicle sales consultant. Adult probe inserted without difficulty. LEFT VENTRICLE:Normal left ventricular chamber size. Estimated leftventricular ejection fraction 50%. No regional wall motionabnormalities. RIGHT VENTRICLE:Mildly enlarged right ventricular chamber size. Mildlyreduced right ventricular systolic function. ATRIA:Severely enlarged left atrial size. Status post Left AtrialAppendage exclusion (10/07/2021) Enlarged right atrial size. CARDIAC VALVES:Trileaflet aortic valve. Sclerotic aortic valve. Trivialaortic valve regurgitation. Status post 29mm [employer] Jovani Epic porcine mitralvalve prosthesis (07-OCT-2021). Mild-moderate mitral valve prostheticregurgitation. Mitral valve prosthesis diastolic mean Doppler gradient 5mmHg (heart rate 60 BPM). Normal pulmonary valve. Trivial pulmonary valveregurgitation. Status post Medtronic tricuspid valve annuloplasty; 30 mmContour ring (07-OCT-2021). Thickened tricuspid valve. Mild-moderatetricuspid valve regurgitation. OTHER ECHO FINDINGS:Normal ascending aorta diameter. Normal aortic arch.Moderate immobile (atheroma 3-5 mm thickness without ulceration)atherosclerosis of the descending thoracic aorta. Normally connectedpulmonary veins. Pulmonary artery bifurcation is normal. Normal superiorvena cava. Agitated saline injection(s) performed during sedation. Kmlzuln-[id number]-figz shunt at atrial level at rest or with Valsalva release. Nointracardiac mass or thrombus identified. No pericardial effusion.PROCEDURE NOTES: Procedure performed with appropriate level of sedation. Atrained independent observer assisted with monitoring the patient's levelof consciousness and physiologic status throughout the procedure, seenursing documentation. The patient tolerated the sedation and procedurewell and was released awake, alert, and in good condition. Transesophagealechocardiogram completed without complications. See Sedation Narrator orother pertinent record in Epic for additional procedure and sedationinformation. Physician signature for procedural medications and patientdischarge when DC criteria met. For the complete report, see the Order-Level Documents. Tristian Tuttle APRN.N.P., M.S ., M.S.N. CV ECHO PROCEDURES * (TTE) 2D LIMITED WITH COLOR AND DOPPLER (06/21/2023 4:41 PM CORPORATION SECRETARY) Ejection Fraction 52 MC CV EIMS Mid-Ascending Aorta 39 MC CV EIMS LV Mass Index 98 MC CV EIMS LV End-Diastolic Diameter 50 MC CV EIMS LV End-Systolic Diameter 38 MC CV EIMS LV End-Diastolic Volume 120 MC CV EIMS LV End-Systolic Volume 58 MC CV EIMS Left ventricular stroke volume index 40 MC CV EIMS Cardiac Output 4.49 MC CV EIMS Cardiac Index 2.61 MC CV EIMS LV Global Longitudinal Strain -15 MC CV EIMS LV Interventricular Septal Wall Thickness 10 MC CV EIMS LV Posterior Wall Thickness 9 MC CV EIMS LV Relative Wall Thickness 36 MC CV EIMS RV 4-Chamber Basal Diameter 46 MC CV EIMS RV 4-Chamber Mid Diameter 41 MC CV EIMS RV 4-Chamber Length 73 MC CV EIMS TAPSE 8 MC CV EIMS Tricuspid Annular S? 0.05 MC CV EIMS RV Free Wall Strain -17 MC CV EIMS TR Vmax 3.15 MC CV EIMS RA Pressure 15 MC CV EIMS RV Systolic Pressure 55 MC CV EIMS AV mean gradient 6 MC CV EIMS Aortic valve area 2.22 MC CV EIMS Aortic Valve Dimensionless Index 0.71 MC CV EIMS MV mean gradient 8 MC CV EIMS TV Regurgitant Volume 56 MC CV EIMS LA Volume Index 66 MC CV EIMS Aortic Valve Systolic Peak Velocity 1.6 MC CV EIMS Anatomical Region Laterality Modality Echocardiography 06/21/2023 2:56 PM CORPORATION SECRETARY Impressions 06/21/2023 5:15 PM CORPORATION SECRETARY Hemoglobin 9.9 g/dL (22-OCT-2022). LEFT VENTRICLE:Normal left ventricular chamber size. Normal left ventricular wall thickness. Calculated 2-D biplane volumetric left ventricular ejection fraction of 52% without the use of ultrasound enhancing agent. Global averaged left ventricular longitudinal peak systolic strain is abnormal at -15% (normal = more negative than -18%). Indeterminate left ventricular filling pressure. RIGHT VENTRICLE:Mild-moderately enlarged right ventricular chamber size. Moderately reduced right ventricular systolic function. Averaged right ventricular free wall longitudinal peak systolic strain, vendor calculated, is -15% (normal </= -25%). Estimated right ventricular systolic pressure 55 mmHg (right atrial pressure of 15 mmHg). ATRIA:Severely enlarged left atrial size. Left atrial volume index 66 ml/m2. Severely enlarged right atrial size by visual estimate. CARDIAC VALVES:Trileaflet aortic valve. Sclerotic aortic valve. Aortic valve systolic mean Doppler gradient 6 mmHg. Trivial aortic valve regurgitation. 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 Mitral valve prosthesis diastolic mean Doppler gradient 8 mmHg (heart rate 84 BPM). Trivial mitral valve prosthetic regurgitation. No mitral valve periprosthetic regurgitation. Pulmonary valve not well visualized. Normal pulmonary valve systolic velocities. Trivial pulmonary valve regurgitation. 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 Tricuspid valve diastolic mean Doppler gradient 2 mmHg (heart rate 71 BPM). Thickened tricuspid valve. Moderate-severe tricuspid valve regurgitation. Tricuspid regurgitation ERO (PISA) 0.52 cm2. Tricuspid regurgitant volume (PISA) 56 ml. OTHER ECHO FINDINGS:Mildly enlarged inferior vena cava size with reduced inspiratory collapse (<50%). Normal mid ascending aorta diameter of 39 mm. Abdominal aorta incompletely visualized. Normal abdominal aorta Doppler flow pattern. No atrial level shunt by color flow imaging. No intracardiac mass or thrombus, but the left atrial appendage cannot be visualized adequately with transthoracic echo to exclude thrombus in this location. No ??pericardial effusion. For the complete report, see the Order-Level Documents. Narrative 06/21/2023 5:15 PM CORPORATION SECRETARY For the complete report, see the Order-Level Documents. Hemodynamics Heart Rate: 76 BPM Blood Pressure: 96 / 57 mmHg ECG: Atrial fibrillation Final Impressions 1. Normal left ventricular chamber size. Calculated biplane ejection fraction 52% with beat to beat variability in atrial fibrillation. Abnormal septal motion post-operative. No other focal regional wall motion abnormalities. 2. Mild-moderately enlarged right ventricular chamber size with moderately reduced systolic function. 3. Estimated right ventricular systolic pressure 55 mmHg (right atrial pressure of 15 mmHg). 4. Severe bi-atrial enlargement. 5. 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 6. Mean diastolic Doppler gradient 7-8 mm Hg (heart rate 78 BPM). Trivial mitral regurgitation. 7. 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 8. Tricuspid valve diastolic mean Doppler gradient 2 mmHg (heart rate 71 BPM). 9. Moderate-severe tricuspid valve regurgitation. Systolic reversals present in the hepatic veins. 10. Tricuspid regurgitation ERO (PISA) 0.52 cm2 Regurgitant volume (PISA) 56 ml. 11. Mildly enlarged inferior vena cava size with reduced inspiratory collapse (<50%). 12. No ??pericardial effusion. 13. On side by side comparison with the previous echocardiogram, tricuspid regurgitation is worse and the mean diastolic Doppler gradient across the mitral prosthesis is higher at a higher heat rate. Left ventricular systolic function is now borderline low. Right ventricle was not well visualized on the previous study making direct comparison difficult. Procedure Note Eloy Doherty M.D. - 06/21/2023 For the complete report, see the Order-Level Documents. Hemodynamics Heart Rate: 76 BPM Blood Pressure: 96 / 57 mmHg ECG: Atrial fibrillation Final Impressions 1. Normal left ventricular chamber size. Calculated biplane ejectionfraction 52% with beat to beat variability in atrial fibrillation.Abnormal septal motion post-operative. No other focal regional wall motionabnormalities. 2. Mild-moderately enlarged right ventricular chamber size with moderatelyreduced systolic function. 3. Estimated right ventricular systolic pressure 55 mmHg (right atrialpressure of 15 mmHg). 4. Severe bi-atrial enlargement. 5. 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 6. Mean diastolic Doppler gradient 7-8 mm Hg (heart rate 78 BPM). Trivialmitral regurgitation. 7. Status post Medtronic tricuspid valve annuloplasty; 30 mm Contour ring(07-OCT-2021). 8. Tricuspid valve diastolic mean Doppler gradient 2 mmHg (heart rate 71BPM). 9. Moderate-severe tricuspid valve regurgitation. Systolic reversalspresent in the hepatic veins. 10. Tricuspid regurgitation ERO (PISA) 0.52 cm2 Regurgitant volume (PISA)56 ml. 11. Mildly enlarged inferior vena cava size with reduced inspiratorycollapse (<50%). 12. No pericardial effusion. 13. On side by side comparison with the previous echocardiogram, tricuspidregurgitation is worse and the mean diastolic Doppler gradient across themitral prosthesis is higher at a higher heat rate. Left ventricularsystolic function is now borderline low. Right ventricle was not wellvisualized on the previous study making direct comparison difficult. Findings Hemoglobin 9.9 g/dL (22-OCT-2022). LEFT VENTRICLE:Normal left ventricular chamber size. Normal leftventricular wall thickness. Calculated 2-D biplane volumetric leftventricular ejection fraction of 52% without the use of ultrasoundenhancing agent. Global averaged left ventricular longitudinal peaksystolic strain is abnormal at -15% (normal = more negative than -18%).Indeterminate left ventricular filling pressure. RIGHT VENTRICLE:Mild-moderately enlarged right ventricular chamber size.Moderately reduced right ventricular systolic function. Averaged rightventricular free wall longitudinal peak systolic strain, vendorcalculated, is -15% (normal </= -25%). Estimated right ventricularsystolic pressure 55 mmHg (right atrial pressure of 15 mmHg). ATRIA:Severely enlarged left atrial size. Left atrial volume index 66ml/m2. Severely enlarged right atrial size by visual estimate. CARDIAC VALVES:Trileaflet aortic valve. Sclerotic aortic valve. Aorticvalve systolic mean Doppler gradient 6 mmHg. Trivial aortic valveregurgitation. Status post 29mm [employer] Epic porcine mitral valveprosthesis (07-OCT-2021). Mitral valve prosthesis diastolic mean Dopplergradient 8 mmHg (heart rate 84 BPM). Trivial mitral valve prostheticregurgitation. No mitral valve periprosthetic regurgitation. Pulmonaryvalve not well visualized. Normal pulmonary valve systolic velocities.Trivial pulmonary valve regurgitation. Status post Medtronic tricuspidvalve annuloplasty; 30 mm Contour ring (07-OCT-2021). Tricuspid valvediastolic mean Doppler gradient 2 mmHg (heart rate 71 BPM). Thickenedtricuspid valve. Moderate-severe tricuspid valve regurgitation. Tricuspidregurgitation ERO (PISA) 0.52 cm2. Tricuspid regurgitant volume (PISA) 56ml. OTHER ECHO FINDINGS:Mildly enlarged inferior vena cava size with reducedinspiratory collapse (<50%). Normal mid ascending aorta diameter of 39 mm.Abdominal aorta incompletely visualized. Normal abdominal aorta Dopplerflow pattern. No atrial level shunt by color flow imaging. No intracardiacmass or thrombus, but the left atrial appendage cannot be visualizedadequately with transthoracic echo to exclude thrombus in this location.No pericardial effusion. For the complete report, see the Order-Level Documents. Tristian Tuttle APRN.N.Jose, M.S ., M.S.N. CV ECHO PROCEDURES * 6 MINUTE WALK (06/21/2023 1:00 PM CORPORATION SECRETARY) Narrative Rose Marie Mascorro APRN, C.N.PVikas, M.S.N. - 06/21/2023 1:00 PM CORPORATION SECRETARY Rose Marie Mascorro APRN, C.N.PVikas, M.S.N. ? 06/21/2023 ??2:45 PM Six Minute Walk Performed by: Rey Egan CRAT Authorized by: Emi Wilson APRN, Tristian.N.PVikas, M.S., M.S.N. ?? Were medications taken in the last 24 hours?: yes ?? PRE WALK Assistive Device: ??4 Wheel Walker 6 Min Walk Distance Type: ??Track Height (cm): ??160 Weight (kg): ??69 BMI: ??27 Resting Heart Rate: ??70 Heart Rate Source: ??Apical Pulse Resting BP: ??116/66 BP Cuff Arm: ??Left BP Cuff Size: ??RegularSupplemental Oxygen used: ??Supplemental Oxygen Not Used Resting SpO2: ??96 SpO2 Site: ??Finger Angina Scale: ??0 - No Angina Stacey Dyspnea: ??2 - Slight Stacey Fatigue: ??3 - Moderate POST WALK Heart Rate: ??106 Heart Rate Source: ??Apical Pulse SpO2: ??97 BP: ??138/66 BP Cuff Side: ??Left Angina Scale: ??0 - No Angina Stacey Dyspnea: ??4 - Somewhat Severe Stacey Fatigue: ??4 - Somewhat Severe Time of Test: ??13:00 CORPORATION SECRETARY Total Distance Walked (Feet): ??790 Total Distance Walked (Meters): ??240.79 Total # of Times Stopped: ??0 Time Stopped (Seconds): ??0 Time Walked (Seconds): ??360 CALCULATIONS Estimated MPH: ??1.5 Estimated METs: ??2.15 % of Predicted Distance: ??61.15 Tristian Tuttle APRN.N.Jose, M.S ., M.S.N. CV STRESS PROCEDURES * ECG 12 Lead (06/21/2023 10:17 AM CORPORATION SECRETARY) Ventricular Rate ECG/Min 79 BPM MUSE QRSD Interval 88 ms MUSE QT Interval 392 ms MUSE QTC Interval 449 ms MUSE R [place] 106 degrees MUSE T Wave [place] 6 degrees MUSE 06/21/2023 10:1 7 AM CORPORATION SECRETARY 06/21/2023 10:27 AM CORPORATION SECRETARY Impressions MUSE - 06/21/2023 10:27 AM CORPORATION SECRETARY Atrial fibrillation Rightward axis Nonspecific ST and T wave abnormality When compared with ECG of 28-OCT-2021 06:27, QRS axis shifted right Reviewed by CLARA Wiggins Narrative Procedure Note Tk Hardy Jr., M.D. - 06/21/2023 IMPRESSION: Atrial fibrillation Rightward axis Nonspecific ST and T wave abnormality When compared with ECG of 28-OCT-2021 06:27, QRS axis shifted right Reviewed by CLARA Wiggins Tristian Tuttle APRN.NChel., M.S ., M.S.N. ECG ORDERABLES MUSE NA * (ABNORMAL) NT-Pro B-Type Natriuretic Peptide (BNP) (06/21/2023 9:28 AM CORPORATION SECRETARY) NT-Pro BNP 9686(H) <=540 pg/mL 06/21/2023 11:07 AM CORPORATION SECRETARY DTL Comment: NT-proBNP values less than 300 pg/mL have a 99% negative predictive value for excluding acute congestive heart failure. A cutoff of 1200 pg/mL for patients with an eGFR<60 yields a diagnostic sensitivity and specificity of 89% and 72% for acute congestive heart failure. A diagnostic NT-proBNP cutoff of 1800 pg/mL has been suggested in adults over 75 years of age in the absence of renal failure. Blood (Blood, Venous) 06/21/2023 9:28 AM CORPORATION SECRETARY 06/21/2023 10:10 AM CORPORATION SECRETARY Tristian Tuttle APRN.N.P., M.S ., M.S.N. LAB BLOOD ADD-ON Performing Organization Address City/[facility] Co de Phone Number [facility] [address] [place], [place] [phone] [place] [address] [facility] [address] [place] [address] * (ABNORMAL) Sedimentation Rate (06/21/2023 9:28 AM CORPORATION SECRETARY) Sedimentation Rate, B 30(H) 3 - 28 mm/h 06/21/2023 11:21 AM CORPORATION SECRETARY DTL Blood (Blood, Venous) 06/21/2023 9:28 AM CORPORATION SECRETARY 06/21/2023 9:56 AM CORPORATION SECRETARY Tristian Thompson APRN.N.P., M.S. LAB BLOOD ADD-ON Performing Organization Address City/[facility] Co de Phone Number [facility] [address] [place], [place] [phone] [place] [address] [facility] [address] [place] [address] * (ABNORMAL) CRP (C-Reactive Protein) (06/21/2023 9:28 AM CORPORATION SECRETARY) C-Reactive Protein (CRP), S 41.6(H) <5.0 mg/L 06/21/2023 11:07 AM CORPORATION SECRETARY DTL Blood (Blood, Venous) 06/21/2023 9:28 AM CORPORATION SECRETARY 06/21/2023 10:10 AM CORPORATION SECRETARY Tristian Thompson APRN.N.P., M.S. LAB BLOOD ADD-ON Performing Organization Address City/[facility] Co de Phone Number [facility] [address] [place] [address] * (ABNORMAL) Uric Acid (06/21/2023 9:28 AM CORPORATION SECRETARY) Uric Acid, S 11.1(H) 2.7 - 6.1 mg/dL 06/21/2023 11:07 AM CORPORATION SECRETARY DT Blood (Blood, Venous) 06/21/2023 9:28 AM CORPORATION SECRETARY 06/21/2023 10:10 AM CORPORATION SECRETARY Tristian Thompson APRN.N.P., M.S. LAB BLOOD ADD-ON Performing Organization Address City/[facility] Co de Phone Number [facility] [address] [place] [address] * (ABNORMAL) BUN (Blood Urea Nitrogen) (06/21/2023 9:28 AM CORPORATION SECRETARY) BUN (Blood Urea Nitrogen), S 51(H) 6 - 21 mg/dL 06/21/2023 11:07 AM CORPORATION SECRETARY DTL Blood (Blood, Venous) 06/21/2023 9:28 AM CORPORATION SECRETARY 06/21/2023 10:10 AM CORPORATION SECRETARY Emi Georges APRN C.N.P., M.S ., M.S.N. LAB BLOOD ADD-ON [facility] [address] [place] [address] * AST (Aspartate Aminotransferase) (06/21/2023 9:28 AM CORPORATION SECRETARY) Aspartate Aminotransferase (AST), S 26 8 - 43 U/L 06/21/2023 11:07 AM CORPORATION SECRETARY DTL Blood (Blood, Venous) 06/21/2023 9:28 AM CORPORATION SECRETARY 06/21/2023 10:10 AM CORPORATION SECRETARY Faustina Thompson APRNNChel., M.S. LAB BLOOD ADD-ON Performing Organization Address City/[facility]/ZIP Co de Phone Number [facility] [address] [place] [address] * Sodium (06/21/2023 9:28 AM CORPORATION SECRETARY) Sodium, S 135 135 - 145 mmol/L 06/21/2023 11:07 AM CORPORATION SECRETARY DT Blood (Blood, Venous) 06/21/2023 9:28 AM CORPORATION SECRETARY 06/21/2023 10:10 AM CORPORATION SECRETARY Tristian Tuttle APRN.N.P., M.S ., M.S.N. LAB BLOOD ADD-ON [facility] [address] [place] [address] * Potassium (06/21/2023 9:28 AM CORPORATION SECRETARY) Potassium, S 4.3 3.6 - 5.2 mmol/L 06/21/2023 11:07 AM CORPORATION SECRETARY DTL Blood (Blood, Venous) 06/21/2023 9:28 AM CORPORATION SECRETARY 06/21/2023 10:10 AM CORPORATION SECRETARY Emi Georges APRN, C.N.P., Anthony ., M.S.N. LAB BLOOD ADD-ON Performing Organization Address City/State/[facility] Co de Phone Number [facility] [address] [place] [address], [facility] [address] [place] [address] * (ABNORMAL) Creatinine with Estimated GFR (06/21/2023 9:28 AM CORPORATION SECRETARY) Creatinine 1.98(H) 0.59 - 1.04 mg/dL 06/21/2023 11:07 AM CORPORATION SECRETARY DTL Estimated GFR (eGFR) 25(L) >=60 mL/min/BSA 06/21/2023 11:07 AM CORPORATION SECRETARY DTL Comment: Estimated GFR calculated using the 2020 CKD_EPI creatinine equation. Blood (Blood, Venous) 06/21/2023 9:28 AM CORPORATION SECRETARY 06/21/2023 10:10 AM CORPORATION SECRETARY Emi Georges APRN, C.N.P., M.S ., M.S.N. LAB BLOOD ADD-ON Performing Organization Address City/[facility] Co de Phone Number [facility] [address] [place] [address], [facility] [address] [place] [address] from Last 3 Months Advance Directives For more information, please contact: [phone] Documents on File Type Date Recorded Patient Floor Attendant Expl anation Advance Directives 11/26/2006 12:00 AM Leg acy document. See document viewer. * Full Code (Latest Code Status on File) Date Activated Date Inactivated Comments 10/31/2021 2:06 PM 11/14/2021 3:52 PM Question Answer Comments Full Code: Discussed * Full Code Date Activated Date Inactivated Comments 10/07/2021 1:22 PM 10/31/2021 1:49 PM Question Answer Comments Full Code: Discussed * Full Code Date Activated Date Inactivated Comments 09/24/2021 2:36 PM 10/07/2021 1:22 PM Question Answer Comments Full Code: Discussed * Full Code Date Activated Date Inactivated Comments 08/31/2021 11:39 PM 09/04/2021 5:21 PM Question Answer Comments Full Code: Discussed * Full Code Date Activated Date Inactivated Comments 08/20/2021 4:28 AM 08/25/2021 4:45 PM Question Answer Comments Full Code: Discussed Care Teams Gallery Or Museum Technician Relationship Specialty Start Date End Date Elsewhere, Pcp PCP - General Internal Medicine 04/08/22
--- OUTSIDE RECORDS SUMMARY | 2023-08-17 17:06 | XMS_ITS ---
Author Name Unknown Organization [facility] Address [address] [place] [address] Care Team Providers Care Car Packer Name Role Phone Unavailable Unavailable Unavailable Surgery Details Not on file Complications Check Surgery Details section. Procedure Estimated Blood Loss Check Surgery Details section. Procedure Findings Check Surgery Details section. Procedure Specimens Taken Check Surgery Details section.
--- OUTSIDE RECORDS SUMMARY | 2023-08-17 17:06 | XMS_ITS | Encounter Summary ---
Author Name Unknown Organization [facility] Address [address] [place] [id number] Care Team Providers Care Seat Cover Installer Name Role Phone Elsewhere, Pcp Primary Care Provider Unavailabl e Reason for Referral * Outpatient (Routine) - Authorized Specialty Diagnoses / Procedures Referred By Mignon garcia Referred To Contact Diagnoses Replacement Mitral Valve Tissue Repair Tricuspid Valve Status Post Chronic Diastolic (Congestive) Heart Failure (HCC) Procedures Six Minute Walk Emi Wilson APRN, C.N.P., M.S., M.S.N. [address] [place] [phone] [facility] Referral ID Status Reason Start Date Expiration Date V isits Requested Visits Authorized [id number] Authorized 07/02/2023 07/01/2024 1 1 ING AND PACKING SUPERVISOR * Outpatient (Routine) - Authorized Specialty Diagnoses / Procedures Referred By Mignon garcia Referred To Contact Diagnoses Replacement Mitral Valve Tissue Repair Tricuspid Valve Status Post Chronic Diastolic (Congestive) Heart Failure (HCC) Procedures Echo Transthoracic (TTE) Emi Wilson APRN, C.N.P., M.S., M.S.N. [address] [place] [phone] [facility] Referral ID Status Reason Start Date Expiration Date V isits Requested Visits Authorized [id number] Authorized 07/02/2023 07/01/2024 1 1 ING AND PACKING SUPERVISOR * Outpatient (Routine) - Authorized Specialty Diagnoses / Procedures Referred By Contac t Referred To Contact Diagnoses Replacement Mitral Valve Tissue Repair Tricuspid Valve Status Post Chronic Diastolic (Congestive) Heart Failure (HCC) Procedures ECG 12 Lead Emi Wilson APRN, C.N.P., M.S., M.S.N. [address] [place] [phone] [facility] Referral ID Status Reason Start Date Expiration Date V isits Requested Visits Authorized [id number] Authorized 07/02/2023 07/01/2024 1 1 ING AND PACKING SUPERVISOR * Outpatient (Routine) - Authorized Specialty Diagnoses / Procedures Referred By Contac t Referred To Contact Cardiovascular Disease Emi Wilson APRN, C.N.P., M.S., M.S.N. [address] [place] [phone] [facility] Referral ID Status Reason Start Date Expiration Date V isits Requested Visits Authorized [id number] Authorized 07/02/2023 12/31/2024 1 1 ING AND PACKING SUPERVISOR Reason for Visit * Outpatient (Routine) - Closed Specialty Diagnoses / Procedures Referred By Contac t Referred To Contact Cardiovascular Disease Emi Wilson APRN, C.N.P., M.S., M.S.N. [address] [place] [phone] [facility] Referral ID Status Reason Start Date Expiration Date Visits Re quested Visits Authorized [id number] Closed 06/30/2023 12/29/2024 1 1 Encounter Details Date Type Department Care Team (Latest Contact Info) Description 07/02/2023 2:00 PM FILLING AND PACKING SUPERVISOR Office Visit Department of Cardiovascular Medicine in [place], [place] [address] [place] [phone] Emi Wilson APRN, C.N.P., M.S., M.S.N. [address] [place] [phone] Infarction Spleen (Primary Dx); Replacement Mitral Valve Tissue; Repair Tricuspid Valve Status Post; Chronic Diastolic (Congestive) Heart Failure (HCC) Social History Tobacco Use Types Packs/Day Years Used Date Smoking Tobacco: Former Cigarettes 1 5 0 05/10/1964 - 05/10/1969 Passive Smoke Exposure: Never Smokeless Tobacco: Never Alcohol Use Standard Drinks/Week Comments Not Currently [...] often do you attend chur ch or uatsdin services? More than 4 times per year 03/27/2022 Do you belong to any clubs o r organizations such as buddhism groups, unions, fraternal or athletic groups, or [...] Answer Date Recorded PHQ-2 Score 3 09/24/2021 [facility] - Occupational [...] place to sleep or slept in a nursing home (including now)? No 03/27/2022 Depression Answer Date [...] Orientation Straight 10/06/2017 9: 26 AM CDT documented as of this encounter Last Filed Vital Signs Vital Sign Reading Time Taken Comments Blood Pressure 123/74 07/02/2023 1:51 PM FILLING AND PACKING SUPERVISOR Pulse 90 07/02/2023 1:51 PM FILLING AND PACKING SUPERVISOR Temperature - - Respiratory Rate - - Oxygen Saturation - - Inhaled Oxygen Concentration - - Weight 68.5 kg (150 lb 14.5 oz) 07/02/2023 1:49 PM FILLING AND PACKING SUPERVISOR Height 157.7 cm (5' 2.09) 07/02/2023 1:49 PM CS T Body Mass Index 27.52 07/02/2023 1:49 PM FILLING AND PACKING SUPERVISOR documented in this encounter Progress Notes * Emi Wilson APRN, C.N.P., M.S., M.S.N. - 07/02/2023 2:00 PM FILLING AND PACKING SUPERVISOR Heart Failure Established Note SUBJECTIVE REFERRING PROVIDER: Emi Wilson APRN, C.N.P., M.S., M.S.N. CHIEF COMPLAINT / REASON FOR VISIT Follow-up to transesophageal echocardiogram HISTORY OF PRESENT ILLNESS Ms. Chen is a pleasant 77-year-old female with a history of hypertension, who presented to [facility] with a several-year history of dyspnea with progressive symptoms in September of 2012. The source for her dyspnea was felt to be a combination of heart failure with preserved ejection fraction, atrial fibrillation, and deconditioning. Mitral valve regurgitation status post tissue replacement, tricuspid valve regurgitation status post repair both completed September 2021. Asymptomatic atrial fibrillation noted April 2013, metoprolol added for rate control. Other comorbidities include rheumatoid arthritis, GI bleed with Gastric and duodenal angiodysplasia by EGD 2013, collagenous colitis, and pulmonary sarcoidosis. Cardiac PET scan was negative for cardiac sarcoidosis. 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 I last met with the patient on 06/22/2023. She revealed she had a splenic infarct despite chronic anticoagulation in April. Mitral valve gradient had doubled from 4 to 8. We recommended transesophageal echocardiogram to rule out clot or vegetation. She was hypervolemic and I recommended she increase her torsemide and use 147 as her trigger weight to take total of 80 mg in a day. Uric acid was up when we started allopurinol 100 mg daily. PAST MEDICAL/SURGICAL HISTORY 1. Heart failure with preserved ejection fraction, diagnosed September 2012. A. EF 64% with normal LV chamber size December 06, 2014. B. Cardiac MRI negative for cardiac sarcoidosis. 2. Pulmonary hypertension. A. Right ventricular systolic pressure 2012 B. RVSP 46 mm Hg November 2014. C. RVSP 48 mm Hg November 2016, with systolic BP 120. D. RHC December 2018 confirmed HFpEF (RA 8, wedge 15, with giant V wave, PA 27, cardiac output low; with exercise RA 18, wedge 27, increase mean PA 39). 3. Rheumatoid arthritis, on hydroxychloroquine. 4. Hypothyroidism, on replacement. 5. History of tobacco abuse, quit 40 years ago. 6. Stress echocardiogram, September 06, 2012, negative for myocardial ischemia. 7. Pulmonary function tests normal, September 2012. A. Mild obstruction by pulmonary function tests May 2016. 8. One to two ounces of alcohol daily. 9. Abnormal overnight oximetry A. Obstructive sleep apnea, device ordered. 10. Atrial fibrillation with rapid ventricular response, April 2013. A. Warfarin on hold during melenic episode; patient subsequently declined (Dec 2017). B. Per Gastroenterology and repeat endoscopy July 2013, patient can reinitiate warfarin. C. Status post successful cardioversion, September 20, 2013, with 100 joules. D. Holter monitor December 2015 did not reveal atrial fibrillation or flutter. E. Recurrent September 2017. No cardioverted due to no increase in BRANDON, rates controlled; was not on anticoagulation due to GI bleed. Rates controlled. Chronic. 11. Melena, May 2012, after a two-week history of warfarin. A. Upper GI reveals duodenal bulb angiodysplasia, stomach and gastric erosions. Patient placed on omeprazole and asked to discontinue NSAIDs. Repeat colonoscopy revealed resolution of lesions. 12. Microscopic colitis. 13. Bilateral cataract extraction. 14. Presumed Pulmonary sarcoidosis (no biopsy); follows with Pulmonary A. Stable by CT August 2021. 15. Community-acquired pneumonia June 2016. 16. Chronotropic incompetence by research March 2017. 17. Septic due to IV line methicillin sensitive Staphylococcus aureus August 2021.. No endocarditis.Received one month of IV antibiotics. 18. Mitral valve regurgitation A. Status post Mitral valve replacement with a 29 millimeter [place]ani epic tissue valve 10/07/2021. 19. Tricuspid valve regurgitation A. Status post repair of the tricuspid valve 10/07/2021. 20. Splenic infarct - no vegetation or intracardiac clot on transesophageal echocardiogram 07/02/2023 REVIEW OF SYSTEMS The following portions of the patient's history were reviewed and updated as appropriate: allergies, current medications, family history, medical history, social history and surgical history. OBJECTIVE Vitals: 07/02/23 1349 07/02/23 1351 BP: 109/72 123/74 BP Location: Left arm Left arm Patient Position: Sitting Standing Cuff Size: Regular Regular Pulse: 88 90 Weight: 68.5 kg Height: 157.7 cm Wt 68.5 kg Ht 157.7 cm Body mass index is 27.52 kg/m??. Body surface area is 1.73 meters squared. TRANSESOPHAGEAL ECHOCARDIOGRAM 1. Transesophageal echocardiogram performed at the request of the primary marine service manager. 2. Status post [address] 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 3. Mild-moderate mitralvalve prosthetic regurgitation. 4. Mitral valve prosthesis diastolic mean Doppler gradient 5 mmHg (heart rate 60 BPM). 5. 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 6. Mild-moderate tricuspid valve regurgitation. 7. Estimated left ventricular ejection fraction 50%. 8. Status post Left Atrial Appendage exclusion (10/07/2021) 9. No intracardiac mass or thrombus identified. 10. No [id number] shunt at atrial level at rest or with Valsalva release. 11. Mod erate immobile (atheroma 3-5 mm thickness without ulceration) atherosclerosis of the descending thoracic aorta. ASSESSMENT / PLAN #1 Infarction Spleen I was pleased to advise the patient that there was no intracardiac mass or thrombus identified. Therefore the source of the splenic infarct remains unknown. I offered thrombophilia consult. When patient heard that they would likely change her to warfarin having considered she would failed DOAC she d eclined. Advised she was not interested even if they did not recommend changing to warfarin. I advised well she may have no further trouble, if she ever develops stroke-like symptoms which were described for her she should call 911 immediately. #2 Replacement Mitral Valve Tissue Gradient only five on transesophageal echocardiogram. This needs no further evaluation. #3 Repair Tricuspid Valve Status Post Regurgitation felt only do [id number]. Patient relieved. Follow-up one year. HEART FAILURE MEDICAL THERAPY: HERMAN/ARB/ARNi: none Beta-shawanda: Metoprolol Aldosterone antagonist: None SGLT2 inhibitor: Discouraged by Nephrology Diuretic: Torsemide Emi Georges APRN, C.N.P., M.S., M.S.N. 07/02/23 Total time spent 12 minutes. documented in this encounter Plan of Treatment Scheduled Orders Name Type Priority Associated Diagnoses Order Schedule BUN (Blood Urea Nitrogen) Lab Routine Replacement Mitral Valve Tissue Repair Tricuspid Valve Status Post Chronic Diastolic (Congestive) Heart Failure (HCC) Expected: 07/02/2024 (Approximate), Expires: 07/02/2024 Creatinine with Estimated GFR Lab Routine Replacement Mitral Valve Tissue Repair Tricuspid Valve Status Post Chronic Diastolic (Congestive) Heart Failure (HCC) Expected: 07/02/2024 (Approximate), Expires: 07/02/2024 NT-Pro B-Type Natriuretic Peptide (BNP) Lab Routine Replacement Mitral Valve Tissue Repair Tricuspid Valve Status Post Chronic Diastolic (Congestive) Heart Failure (HCC) Expected: 07/02/2024 (Approximate), Expires: 07/02/2024 Potassium Lab Routine Replacement Mitral Valve Tissue Repair Tricuspid Valve Status Post Chronic Diastolic (Congestive) Heart Failure (HCC) Expected: 07/02/2024 (Approximate), Expires: 07/02/2024 Sodium Lab Routine Replacement Mitral Valve Tissue Repair Tricuspid Valve Status Post Chronic Diastolic (Congestive) Heart Failure (HCC) Expected: 07/02/2024 (Approximate), Expires: 07/02/2024 CBC without Differential Lab Routine Replacement Mitral Valve Tissue Repair Tricuspid Valve Status Post Chronic Diastolic (Congestive) Heart Failure (HCC) Expected: 07/02/2024 (Approximate), Expires: 09/29/2024 ECG 12 Lead ECG Routine Replacement Mitral Valve Tissue Repair Tricuspid Valve Status Post Chronic Diastolic (Congestive) Heart Failure (HCC) Expected: 07/02/2024 (Approximate), Expires: 09/29/2024 Echo Transthoracic (TTE) Echocardiography Routine Replacement Mitral Valve Tissue Repair Tricuspid Valve Status Post Chronic Diastolic (Congestive) Heart Failure (HCC) Expected: 07/02/2024 (Approximate), Expires: 09/29/2024 Six Minute Walk Cardiac Services Routine Replacement Mitral Valve Tissue Repair Tricuspid Valve Status Post Chronic Diastolic (Congestive) Heart Failure (HCC) Expected: 07/02/2024 (Approximate), Expires: 09/29/2024 Scheduled Referrals Name Type Priority Associated Diagnoses Order Schedule Cardiovascular Disease office visit (clinic) Outpatient Referral Routine Expect ed: 07/02/2024 (Approximate), Expires: 09/29/2024 documented as of this encounter Visit Diagnoses Diagnosis Infarction Spleen- Primary Replacement Mitral Valve Tissue Repair Tricuspid Valve Status Post Chronic Diastolic (Congestive) Heart Failure (HCC) documented in this encounter Additional Health Concerns Assessment Noted Time PHQ-9 Depression Total Score: 10 09/24/2 022 2:00 PM CDT documented as of this encounter Care Teams Seat Cover Installer Relationship Specialty Start Date End Date Elsewhere, Pcp PCP - General Internal Medicine 04/08/22 documented as of this encounter
--- OUTSIDE RECORDS SUMMARY | 2023-08-17 17:06 | XMS_ITS | Referral Summary ---
Author Name Unknown Organization [facility] Address [address] [place] [id number] Care Team Providers Care Photo Studio Assistant Name Role Phone Elsewhere, Pcp Primary Care Provider Unavailabl e Source Comments Patient records contain information from all sites at [facility]. For routine questions regarding patient records, call [phone] during business hours, M-F 8:00 AM - 5:00 PM Central Time. Record requests for emergency care only can be directed to [phone] at any time.[facility] Encounters Date Type Department Care Team Description 08/15/2023 Refill Department of Cardiovascular Medicine in [place], [place] [address] [place] [address] mEi Wilson APRN, C.N.P., M.S., M.S.N. Med Refill 07/09/2023 2:45 PM FINANCE PROFESSOR - 07/09/2023 11:59 PM FINANCE PROFESSOR Hospital Encounter Department of Laboratory Medicine and Pathology, [facility] in [place], [place] [address] [place] [address] Eloy Cabrera M.D. Sarcoidosis Pulmonary (HCC) Discharge Disposition: Home or Self Care 07/09/2023 12:07 PM FINANCE PROFESSOR - 07/09/2023 2:44 PM FINANCE PROFESSOR Hospital Encounter Department of Radiology, [facility] in [place], [place] [address] [place] [phone] Eloy Cabrera M.D. Dyspnea On Exertion; Sarcoidosis Pulmonary (HCC); Acute On Chronic Diastolic (Congestive) Heart Failure (HCC) Discharge Disposition: Home or Self Care 07/09/2023 2:00 PM FINANCE PROFESSOR Office Visit Division of Pulmonary Medicine in [place], [place] [address] [place] [phone] Eloy Cabrera M.D. Sarcoidosis Pulmonary (HCC) (Primary Dx); Dyspnea On Exertion; Acute On Chronic Diastolic (Congestive) Heart Failure (HCC) 07/06/2023 11:15 AM FINANCE PROFESSOR Office Visit Division of Rheumatology in [place], [place] [address] [place] [phone] Rosa Bolton APRN, C.N.P., M.S. Arthritis Rheumatoid (HCC) (Primary Dx) 07/03/2023 Refill Division of Rheumatology in [place], [place] [address] [place] [phone] Rosa Bolton APRN, C.N.P., M.S. Med Refill 07/02/2023 2:00 PM FINANCE PROFESSOR Office Visit Department of Cardiovascular Medicine in [place], [place] [address] [place] [phone] Emi Wilson APRN, C.N.P., M.S., M.S.N. Infarction Spleen (Primary Dx); Replacement Mitral Valve Tissue; Repair Tricuspid Valve Status Post; Chronic Diastolic (Congestive) Heart Failure (HCC) 07/02/2023 8:19 AM FINANCE PROFESSOR - 07/02/2023 11:59 PM FINANCE PROFESSOR Hospital Encounter Department of Cardiovascular Diseases in [place], [place] [address] [place] [phone] Emi Wilson APRN, C.N.P., M.S., M.S.N. Replacement Mitral Valve Tissue; Infarction Spleen Discharge Disposition: Home or Self Care 06/22/2023 1:00 PM FINANCE PROFESSOR Office Visit Department of Cardiovascular Medicine in [place], [place] [address] [place] [phone] Emi Wilson APRN, C.N.P., M.S., M.S.N. 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 Chronic Diastolic (Congestive) Heart Failure (HCC) Discharge Disposition: Home or Self Care 06/21/2023 12:40 PM FINANCE PROFESSOR - 06/21/2023 1:56 PM FINANCE PROFESSOR Hospital Encounter Department of Cardiac Rehabilitation in [address] [phone] Emi Wilson APRN, C.N.P., M.S., M.S.N. Chronic Diastolic (Congestive) Heart Failure (HCC) Discharge Disposition: Home or Self Care 06/21/2023 8:30 AM FINANCE PROFESSOR - 06/21/2023 12:39 PM FINANCE PROFESSOR Hospital Encounter Department of Laboratory Medicine and Pathology, [facility] in [address] [phone] Emi Wilson APRN, C.N.P., M.S., M.S.N. Chronic Diastolic (Congestive) Heart Failure (HCC); Arthritis Rheumatoid (HCC) Discharge Disposition: Home or Self Care 06/18/2023 11:15 AM FINANCE PROFESSOR Clinical Communication Virtual Review in [address] [address] Pre-visit Intake 06/08/2023 Refill Division of Rheumatology in [address] [phone] Rosa Bolton APRN, C.N.P., M.S. Med Refill 06/01/2023 4:00 PM FINANCE PROFESSOR External Outreach Division of Nephrology and Hypertension in [place], [place] [address] [place] [phone] Luis Agarwal Jr., D.O. Hypertension And Chronic [...] Secondary (HCC); Debility from Last 3 Months Allergies Active Allergy Reactions Criticality Noted Date [...] In the morning 0 2 Active multivitamin-iron -CN-Fr-ebmuigfa (THERAPEUTIC-M) 400 mcg (folic acid) per tablet [...] Status Post 10/07/2021 Anticoagulant Therapy 10/07/2021 Therapy Shelter Antiplatelet 10/07/2021 Anemia Posthemorrhagic Acute (Blood Loss [...] Overview: Added automatically from request for surgery [id number] Apnea Sleep Obstructive 12/13/2017 Overweight Body Mass [...] Overview: Added automatically from request for surgery [id number] Chronic Diastolic (Congestive) Heart Failure 3 09/24/2021 Immunizations Name Administration Dates Next Due HZV (ZOSTAVAX) 05/10/2010 Influenza Split 02/07/2013,02/08/2012 PPSV23(Discontinued) 02/09/2011 Td, (Adult) Unspecified 05/12/2010 influenza high dose (65 years or older) (PF) Social History Tobacco Use Types Packs/Day Years [...] week 03/27/2022 How often do you attend [facility] or protestant services? More than 4 times per year 03/27/2022 Do you belong to any clubs o r organizations such as confucianist groups, unions, fraternal or athletic groups, or [...] Answer Date Recorded PHQ-2 Score 3 09/24/2021 [facility] - Occupational Stress [...] place to sleep or slept in a long term (including now)? No 03/27/2022 Depression Answer Date [...] Comments Blood Pressure 123/74 07/02/2023 1:51 PM FINANCE PROFESSOR Pulse 90 07/02/2023 1:51 PM FINANCE PROFESSOR Temperature 36.3 ??C (97.3 ??F) 11/14/2021 5:40 AM CD T Respiratory Rate 20 07/02/2023 10:3 9 AM FINANCE PROFESSOR Oxygen Saturation 93% 07/09/2023 1:50 PM FINANCE PROFESSOR Inhaled Oxygen Concentration - - Weight 68.5 kg (150 lb 14.5 oz) 07/02/2023 1:49 PM FINANCE PROFESSOR Height 157.7 cm (5' 2.09) 07/02/2023 1:49 PM CS T Body Mass Index 27.52 07/02/2023 1:49 PM FINANCE PROFESSOR Plan of Treatment Not on file Medical Devices Implanted Type Area Instrument And Control Technician Device Identifier Shelf Expiration Date Model / Serial / Lot Rng Anulo Mtrl Cnt Trcspd 30 - [id number] - [id number] Implanted:Qty: 1 on 10/07/2021 by Clarence Gee M.D. at [facility] Cardiac Valve Prosthesis N/A: Tricuspid Valve Medtronic 05/18/2026 [id number] / [id number] / Vlv Mtrl [facility] 29 - [id number] - [id number] Implanted:Qty: 1 on 10/07/2021 by Clarence Gee M.D. at [facility] Cardiac Valve Prosthesis N/A: Mitral Valve Emerson 11/27/2024 E100-29 M-00 / [id number] / Clp Hrzn Ti 6 Clp Md Rhett - [id number] Implanted:Qty: 1 on 10/07/2021 by Clarence Gee M.D. at [facility] Hardware e.g. pins/screws/ rods N/A: Chest [employer] [id number] / / J J Tib Insert Sigma 4x10.0 - [place] [id number] Implanted:Qty: 1 on 11/22/2006 Knee Implant Other/Legacy - See Implant Description [employer] Description:Device Manufactu rer - J [employer]. Body Location - Other. Left. Device Status Text - KNEE [id number]. J J Sig Patella Oval 35 - [place] [id number] Implanted:Qty: 1 on 11/22/2006 Knee Implant Other/Legacy - See Implant Description [employer] Description:Device Manufactu rer - J [employer]. Body Location - Other. Left. Device Status Text - KNEE [id number]. J J Sig Fem Lugged Sz 4.0 Lt - [place] [id number] Implanted:Qty: 1 on 11/22/2006 Knee Implant Other/Legacy - See Implant Description [employer] Description:Device Manufactu rer - J [employer] J [employer]. Body Location - Other. Left. Device Status Text - KNEE [id number]. J J Keel Tray Tib Mb Sz 3.0 - [place] [id number] Implanted:Qty: 1 on 11/22/2006 Knee Implant Other/Legacy - See Implant Description [employer] Description:Device Manufactu rer - J [employer] Orth[employer]. Body Location - Other. Left. Device Status Text - KNEE [id number]. Misc Other Misc Other Mouth Description:3 lower teeth im planted Misc Other Misc Other Mouth Description:2 teeth implants 2020 Cement Bone Large - [place] [id number] Implanted:Qty: 1 on 11/22/2006 Misc Other Jessica Description:Device Manufactu rer - Macon Le.. Device Status Text - [id number]. Procedures Procedure Name Priority Date/Time Associated Diagnosis Comments COMPREHENSIVE METABOLIC PANEL, S/P Routine 07/09/2023 2:54 PM FINANCE PROFESSOR Sarcoidosis Pulmonary (HCC) CBC WITHOUT DIFFERENTIAL, B Routine 07/09/2023 2:54 PM FINANCE PROFESSOR Sarcoidosis Pulmonary (HCC) 25-HYDROXYVITAMIN D2 AND D3, S Routine 07/09/2023 2:53 PM FINANCE PROFESSOR Sarcoidosis Pulmonary (HCC) 1,25-DIHYDROXYVITAMIN D, S Routine 07/09/2023 2:53 PM FINANCE PROFESSOR Sarcoidosis Pulmonary (HCC) DX CHEST AP OR PA AND LATERAL 2 VIEWS RAD - Routine (most inpatients and all outpatients) 07/09/2023 12:21 PM FINANCE PROFESSOR Dyspnea On Exertion Sarcoidosis Pulmonary (HCC) Acute On Chronic Diastolic (Congestive) Heart Failure (HCC) PULMONARY FUNCTION TESTS Routine 07/09/2023 10:44 AM FINANCE PROFESSOR Dyspnea On Exertion Sarcoidosis Pulmonary (HCC) Acute On Chronic Diastolic (Congestive) Heart Failure (HCC) (DAYNE) 2D WITH COLOR, LIMITED DOPPLER AND CONTRAST Routine 07/02/2023 10:21 AM FINANCE PROFESSOR 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) 2D LIMITED WITH COLOR AND DOPPLER Routine 06/21/2023 4:41 PM FINANCE PROFESSOR Chronic Diastolic (Congestive) Heart Failure (HCC) 6 MINUTE WALK Routine 06/21/2023 1:00 PM FINANCE PROFESSOR Chronic Diastolic (Congestive) Heart Failure (HCC) ECG Routine 06/21/2023 10:17 AM FINANCE PROFESSOR Chronic Diastolic (Congestive) Heart Failure (HCC) URIC ACID, S/P Routine 06/21/2023 9:28 AM FINANCE PROFESSOR Arthritis Rheumatoid (HCC) ASPARTATE AMINOTRANSFERASE (AST), S/P Routine 06/21/2023 9:28 AM FINANCE PROFESSOR Arthritis Rheumatoid (HCC) C-REACTIVE PROTEIN (CRP), S/P Routine 06/21/2023 9:28 AM FINANCE PROFESSOR Arthritis Rheumatoid (HCC) SEDIMENTATION RATE, B Routine 06/21/2023 9:28 AM FINANCE PROFESSOR Arthritis Rheumatoid (HCC) SODIUM, S/P Routine 06/21/2023 9:28 AM FINANCE PROFESSOR Chronic Diastolic (Congestive) Heart Failure (HCC) POTASSIUM, S/P Routine 06/21/2023 9:28 AM FINANCE PROFESSOR Chronic Diastolic (Congestive) Heart Failure (HCC) NT-PRO B-TYPE NATRIURETIC PEPTIDE (BNP), S Routine 06/21/2023 9:28 AM FINANCE PROFESSOR Chronic Diastolic (Congestive) Heart Failure (HCC) CREATININE WITH EGFR, S/P Routine 06/21/2023 9:28 AM FINANCE PROFESSOR Chronic Diastolic (Congestive) Heart Failure (HCC) BUN (BLOOD UREA NITROGEN), S/P Routine 06/21/2023 9:28 AM FINANCE PROFESSOR Chronic Diastolic (Congestive) Heart Failure (HCC) from Last 3 Months Results * (ABNORMAL) CBC without Differential (07/09/2023 2:54 PM FINANCE PROFESSOR) Hemoglobin 8.3(L) 11.6 - 15.0 g/dL 07/09/2023 3:15 PM FINANCE PROFESSOR DTL Hematocrit 26.3(L) 35.5 - 44.9 % 07/09/2023 3:15 PM FINANCE PROFESSOR DTL Erythrocytes 2.74(L) 3.92 - 5.13 x10(12)/L 07/09/2023 3:15 PM FINANCE PROFESSOR DTL MCV 96.0 78.2 - 97.9 fL 07/09/2023 3:15 PM FINANCE PROFESSOR DTL RBC Distrib Width 18.0(H) 12.2 - 16.1 % 07/09/2023 3:15 PM FINANCE PROFESSOR DTL Platelet Count 267 157 - 371 x10(9)/L 07/09/2023 3:15 PM FINANCE PROFESSOR DTL Leukocytes 6.8 3.4 - 9.6 x10(9)/L 07/09/2023 3:15 PM FINANCE PROFESSOR DTL Blood (Blood, Venous) 07/09/2023 2:54 PM FINANCE PROFESSOR 07/09/2023 3:07 PM FINANCE PROFESSOR Eloy Cabrera M.D. LAB BLOOD ADD-ON [facility] [address] [place] [address], [facility] [address] [place] [address] * (ABNORMAL) Comprehensive Metabolic Panel (07/09/2023 2:54 PM FINANCE PROFESSOR) Pathologist [facility] Potassium, S 5.2 3.6 - 5.2 mmol/L 07/09/2023 4:08 PM FINANCE PROFESSOR DTL Sodium, S 142 135 - 145 mmol/L 07/09/2023 4:08 PM FINANCE PROFESSOR DTL Chloride, S 101 98 - 107 mmol/L 07/09/2023 4:08 PM FINANCE PROFESSOR DTL Bicarbonate, S 27 22 - 29 mmol/L 07/09/2023 4:08 PM FINANCE PROFESSOR DTL Anion Gap 14 7 - 15 07/09/2023 4:08 PM FINANCE PROFESSOR DTL BUN (Blood Urea Nitrogen), S 70(H) 6 - 21 mg/dL 07/09/2023 4:08 PM FINANCE PROFESSOR DTL Creatinine 2.00(H) 0.59 - 1.04 mg/dL 07/09/2023 4:08 PM FINANCE PROFESSOR DTL Estimated GFR (eGFR) 25(L) >=60 mL/min/BS A 07/09/2023 4:08 PM FINANCE PROFESSOR DTL Comment: Estimated GFR calculated using the 2020 CKD_EPI creatinine equation. Calcium, Total, S 9.2 8.8 - 10.2 mg/dL 07/09/2023 4:08 PM FINANCE PROFESSOR DTL Glucose, S 108 70 - 140 mg/dL 07/09/2023 4:08 PM FINANCE PROFESSOR DTL Protein, Total, S 7.3 6.3 - 7.9 g/dL 07/09/2023 4:08 PM FINANCE PROFESSOR DTL Albumin, S 4.6 3.5 - 5.0 g/dL 07/09/2023 4:08 PM FINANCE PROFESSOR DTL Aspartate Aminotransferase (AST), S 27 8 - 43 U/L 07/09/2023 4:08 PM FINANCE PROFESSOR DTL Alkaline Phosphatase, S 210(H) 35 - 104 U/L 07/09/2023 4:08 PM FINANCE PROFESSOR DTL Alanine Aminotransferase (ALT), S 26 7 - 45 U/L 07/09/2023 4:08 PM FINANCE PROFESSOR DTL Bilirubin, Total, S 0.8 0.0 - 1.2 mg/dL 07/09/2023 4:08 PM FINANCE PROFESSOR DTL Blood (Blood, Venous) 07/09/2023 2:54 PM FINANCE PROFESSOR 07/09/2023 3:19 PM FINANCE PROFESSOR Eloy Cabrera M.D. LAB BLOOD ADD-ON [facility] [address] [place] [address], [facility] [address] [place] [address] * 1,25-Dihydroxyvitamin D (07/09/2023 2:53 PM FINANCE PROFESSOR) [facility] 1, 25 DIHYDROXYVITAMIN D, S 56 18 - 78 pg/mL 07/13/2023 11:56 PM FINANCE PROFESSOR [facility] Comment: ----ADDITIONAL INFORMATION---- This test was developed and its performance characteristics determined by [facility] in a manner consistent with CLIA requirements. This test has not been cleared or approved by the U.S. Food and Drug Administration. Blood (Blood, Venous) 07/09/2023 2:53 PM FINANCE PROFESSOR 07/12/2023 7:18 AM FINANCE PROFESSOR Eloy Cabrera M.D. LAB BLOOD ADD-ON Performing Organization Address [facility] Co de Phone Number [facility] [address] [place] [address] [facility] [address] [place] [address] [place] [address] * 25-Hydroxyvitamin D2 and D3 (07/09/2023 2:53 PM FINANCE PROFESSOR) [facility] 25-Hydroxy D2 5.5 ng/mL 07/13/2023 11:08 AM FINANCE PROFESSOR SDS 25-Hydroxy D3 51 ng/mL 07/13/2023 11:08 AM FINANCE PROFESSOR SDS 25-Hydroxy D Total 57 ng/mL 2023 11:08 AM FINANCE PROFESSOR [facility] Comment: Interpretation: 51-80 ng/mL (increased risk of hypercalciuria) ----REFERENCE VALUE---- 25-HYDROXY D TOTAL (D2+D3) Optimum levels in the healthy population are 20-50, patients with bone disease may benefit from higher levels within this range. ----ADDITIONAL INFORMATION---- This test was developed and its performance characteristics determined by [facility] in a manner consistent with CLIA requirements. This test has not been cleared or approved by the U.S. Food and Drug Administration. Blood (Blood, Venous) 07/09/2023 2:53 PM FINANCE PROFESSOR 07/12/2023 7:23 AM FINANCE PROFESSOR Eloy Cabrera M.D. LAB BLOOD ADD-ON Performing Organization Address [facility] Co de Phone Number [facility] [address] [place] [address] [facility] [address] [place] [address] [place] [address] * DX Chest AP or PA and Lateral 2 Views (07/09/2023 12:21 PM FINANCE PROFESSOR) Anatomical Region Laterality Modality Chest, Thoracic RST LOS, Tho racic ARZ LOS, Thoracic FLA LOS N/A Digital Radiography Impressions 07/09/2023 12:36 PM FINANCE PROFESSOR Sternotomy. Tricuspid annuloplasty. Abandoned epicardial pacing leads. Calcified tortuous aorta. Calcified tortuous aorta. Mild enlargement of the cardiac silhouette with pulmonary venous hypertension. Thoracolumbar curve with degenerative changes and compression of mid and lower thoracic vertebral bodies. Eventration right hemidiaphragm. No significant change since outside study of 04/21/2023. The pulmonary nodules identified on the [facility] CT examination of 11/05/2022 are not well demonstrated on current chest radiographs, likely reflecting differences in modality. Narrative 07/09/2023 12:36 PM FINANCE PROFESSOR EXAM: ??DX CHEST AP OR PA AND [...] 04/21/2023. The pulmonary nodules identified on the [facility] CTexamination of 11/05/2022 are not well demonstrated on current chest radiographs, likely reflecting differencesin modality. Eloy Cabrera M.D. IMG DIAGNOSTIC IMAGI NG PROCEDURES * Pulmonary Function Tests (07/09/2023 10:44 AM FINANCE PROFESSOR) FVC 1.91 L 07/09/2023 2:00 PM [facility] FEV1 1.06 L 07/09/2023 2:00 PM [facility] FEV1/FVC 55.47 % 07/09/2023 2:00 PM [facility] LAG76-91% 0.35 L/s 07/09/2023 2:00 PM [facility] PEF PRE 3.97 L/s 07/09/2023 2:00 PM [facility] PIF PRE 3.11 L/s 07/09/2023 2:00 PM [facility] FEF 50 % FIF 50 PRE 17.16 % 07/09/2023 2:00 PM [facility] FET PRE 13.45 sec 07/09/2023 2:00 PM [facility] DLCO 5.48 ml/(min*mm Hg) 07/09/2023 2:00 PM [facility] VA 3.11 L 07/09/2023 2:00 PM [facility] TLC 4.42 L 07/09/2023 2:00 PM [facility] FRCPLETH PROVBASE 3.09 L 07/09/2023 2:00 PM [facility] RV 2.48 L 07/09/2023 2:00 PM [facility] RV % TLC PRE 56.01 % 07/09/2023 2:00 PM [facility] 07/09/2023 10:4 4 AM FINANCE PROFESSOR Impressions [facility] - 07/09/2023 2:00 PM FINANCE PROFESSOR Abnormal. Moderate obstruction with possible air trapping. [...] is increased. Eloy Cabrera M.D. PFT ORDERABLES [facility] NA * (DAYNE) 2D WITH COLOR, LIMITED DOPPLER AND CONTRAST (07/02/2023 10:21 AM FINANCE PROFESSOR) Ejection Fraction 50 MC CV EIMS Mid-Ascending Aorta 39 MC CV EIMS MV mean gradient 5 MC CV EIMS Anatomical Region Laterality Modality Echocardiography 07/02/2023 8:21 AM FINANCE PROFESSOR Impressions 07/02/2023 11:11 AM FINANCE PROFESSOR PRE-SEDATION ASSESSMENT & CONSENT (performed immediately prior to the start of the procedure): The goals, risks and alternatives to moderate sedation and the transesophageal echo were explained to the patient, questions were answered and consent was given to proceed. The physician reviewed the patient's history, medication list, allergies, and review of systems, and the findings as documented in the health advocate and also performed a pertinent examination including [...] performed at the request of the primary social services designee. Adult probe inserted without difficulty. LEFT VENTRICLE:Normal [...] Agitated saline injection(s) performed during sedation. No hmthb-rz-ecdr shunt at atrial level at rest or [...] Sedation Narrator or other pertinent record in [facility] for additional procedure and sedation information. Physician signature for procedural medications and patient discharge when DC criteria met. For the complete report, see the Order-Level Documents. Narrative 07/02/2023 11:11 AM FINANCE PROFESSOR For the complete report, see the Order-Level Documents. Hemodynamics Heart Rate: 61 BPM Blood Pressure: 121 / 72 mmHg ECG: Atrial fibrillation Final Impressions 1. Transesophageal echocardiogram performed at the request of the primary social services designee. 2. Status post 29mm [facility] Epic [...] intracardiac mass or thrombus identified. 10. No sgoep-yn-vzwj shunt at atrial level at rest or [...] performed at the request of the primaryservice bath design sales consultant. 2. Status post 29mm St. [...] intracardiac mass or thrombus identified. 10. No hssen-gc-pree shunt at atrial level at rest or [...] and the findings as documented in the health advocate and alsoperformed a pertinent examination including a heart, airway and lungassessment. Mallampati Assessment: As documented in the RN pre-procedureassessment. Sedation plan: Transesophageal echo - moderate sedation. ASAphysical status score: Class III. The patient's identity and all neededequipment were confirmed and a final confirmatory pause was performed bythe team immediately prior to start. PROCEDURAL ECHO FINDINGS:Transesophageal echocardiogram performed at the request of the primaryservice bath design sales consultant. Adult probe inserted without difficulty. [...] cava. Agitated saline injection(s) performed during sedation. Jurvfnf-kc-tqfs shunt at atrial level at rest or [...] See Sedation Narrator orother pertinent record in [facility] for additional procedure and sedationinformation. Physician signature for procedural medications and patientdischarge when DC criteria met. For the complete report, see the Order-Level Documents. Tristian Tuttle APRN.N.P., M.S ., M.S.N. CV ECHO PROCEDURES * (TTE) 2D LIMITED WITH COLOR AND DOPPLER (06/21/2023 4:41 PM FINANCE PROFESSOR) Ejection Fraction 52 MC CV EIMS Mid-Ascending [...] Region Laterality Modality Echocardiography 06/21/2023 2:56 PM FINANCE PROFESSOR Impressions 06/21/2023 5:15 PM FINANCE PROFESSOR Hemoglobin 9.9 g/dL (22-OCT-2022). LEFT VENTRICLE:Normal left [...] the Order-Level Documents. Narrative 06/21/2023 5:15 PM FINANCE PROFESSOR For the complete report, see the Order-Level [...] * 6 MINUTE WALK (06/21/2023 1:00 PM FINANCE PROFESSOR) Narrative Rose Marie Mascorro APRN C.N.P., M.S.N. - 06/21/2023 1:00 PM FINANCE PROFESSOR Rose Marie Mascorro APRN, C.N.Jose, M.S.N. ? 06/21/2023 ??2:45 PM Six Minute [...] - Somewhat Severe Time of Test: ??13:00 FINANCE PROFESSOR Total Distance Walked (Feet): ??790 Total Distance Walked (Meters): ??240.79 Total # of Times Stopped: ??0 Time Stopped (Seconds): ??0 Time Walked (Seconds): ??360 CALCULATIONS Estimated MPH: ??1.5 Estimated METs: ??2.15 % of Predicted Distance: ??61.15 Emi Georges APRN, C.N.P., M.S ., M.S.N. CV STRESS PROCEDURES * ECG 12 Lead (06/21/2023 10:17 AM FINANCE PROFESSOR) Ventricular Rate ECG/Min 79 BPM MUSE QRSD Interval 88 ms MUSE QT Interval 392 ms MUSE QTC Interval 449 ms MUSE R [place] 106 degrees MUSE T Wave [place] 6 degrees MUSE 06/21/2023 10:1 7 AM FINANCE PROFESSOR 06/21/2023 10:27 AM FINANCE PROFESSOR Impressions MUSE - 06/21/2023 10:27 AM FINANCE PROFESSOR Atrial fibrillation Rightward axis Nonspecific ST and T wave abnormality When compared with ECG of 28-OCT-2021 06:27, QRS axis shifted right Reviewed by CLARA Wiggins Narrative Procedure Note Tk Hardy Jr., M.D. - 06/21/2023 IMPRESSION: Atrial fibrillation Rightward axis Nonspecific ST and T wave abnormality When compared with ECG of 28-OCT-2021 06:27, QRS axis shifted right Reviewed by CLARA Wiggins Emi Georges APRN, C.N.P., M.S ., M.S.N. ECG ORDERABLES Performing Organization Address City/[facility]/ZIP Co de Phone Number MUSE NA * (ABNORMAL) NT-Pro B-Type Natriuretic Peptide (BNP) (06/21/2023 9:28 AM FINANCE PROFESSOR) NT-Pro BNP 9686(H) <=540 pg/mL 06/21/2023 11:07 AM FINANCE PROFESSOR DTL Comment: NT-proBNP values less than 300 [...] failure. Blood (Blood, Venous) 06/21/2023 9:28 AM FINANCE PROFESSOR 06/21/2023 10:10 AM FINANCE PROFESSOR Emi Roger Faustina Georges APRNNChel., M.S ., M.S.N. LAB BLOOD ADD-ON Performing Organization Address [facility] Co de Phone Number [facility] [address] [facility] 200 [place] [address] * (ABNORMAL) Sedimentation Rate (06/21/2023 9:28 AM FINANCE PROFESSOR) Sedimentation Rate, B 30(H) 3 - 28 mm/h 06/21/2023 11:21 AM FINANCE PROFESSOR DTL Blood (Blood, Venous) 06/21/2023 9:28 AM FINANCE PROFESSOR 06/21/2023 9:56 AM FINANCE PROFESSOR Faustina Thompson APRNN.P., M.S. LAB BLOOD ADD-ON Performing Organization Address [facility] Co de Phone Number [facility] [address] DTL [facility] [place][note 2] 200 [place] [address] * (ABNORMAL) CRP (C-Reactive Protein) (06/21/2023 9:28 AM FINANCE PROFESSOR) Pathologist [facility] C-Reactive Protein (CRP), S 41.6(H) <5.0 mg/L 06/21/2023 11:07 AM FINANCE PROFESSOR DTL Blood (Blood, Venous) 06/21/2023 9:28 AM FINANCE PROFESSOR 06/21/2023 10:10 AM FINANCE PROFESSOR Tristian Thompson APRN.N.P., M.S. LAB BLOOD ADD-ON [facility] [address] [place], [place] [phone] [place] [address] 200 [place] [address] * (ABNORMAL) Uric Acid (06/21/2023 9:28 AM FINANCE PROFESSOR) [facility] Uric Acid, S 11.1(H) 2.7 - 6.1 mg/dL 06/21/2023 11:07 AM FINANCE PROFESSOR DTL Blood (Blood, Venous) 06/21/2023 9:28 AM FINANCE PROFESSOR 06/21/2023 10:10 AM FINANCE PROFESSOR Tristian Thompson APRN.N.P., M.S. LAB BLOOD ADD-ON [facility] 200 [place], [place] [id number] [place] [address] 200 [place] [address] * (ABNORMAL) BUN (Blood Urea Nitrogen) (06/21/2023 9:28 AM FINANCE PROFESSOR) [facility] BUN (Blood Urea Nitrogen), S 51(H) 6 - 21 mg/dL 06/21/2023 11:07 AM FINANCE PROFESSOR DTL Blood (Blood, Venous) 06/21/2023 9:28 AM FINANCE PROFESSOR 06/21/2023 10:10 AM FINANCE PROFESSOR Emi Georges APRN, C.N.P., M.S ., M.S.N. LAB BLOOD ADD-ON [facility] 200 [place] [address], [facility] 200 [place] [address] * AST (Aspartate Aminotransferase) (06/21/2023 9:28 AM FINANCE PROFESSOR) Aspartate Aminotransferase (AST), S 26 8 - 43 U/L 06/21/2023 11:07 AM FINANCE PROFESSOR DTL Blood (Blood, Venous) 06/21/2023 9:28 AM FINANCE PROFESSOR 06/21/2023 10:10 AM FINANCE PROFESSOR Rosa Bolton APRN, C.N.P., M.S. LAB BLOOD ADD-ON Performing Organization Address City/[facility]/ZIP Co de Phone Number [facility] 200 [place] [address], [facility] 200 [place] [address] * Sodium (06/21/2023 9:28 AM FINANCE PROFESSOR) Sodium, S 135 135 - 145 mmol/L 06/21/2023 11:07 AM FINANCE PROFESSOR DTL Blood (Blood, Venous) 06/21/2023 9:28 AM FINANCE PROFESSOR 06/21/2023 10:10 AM FINANCE PROFESSOR Faustina Tuttle APRNNJordan, M.S ., M.S.N. LAB BLOOD ADD-ON [facility] 200 [place] [address], [facility] 200 [place] [address] * Potassium (06/21/2023 9:28 AM FINANCE PROFESSOR) Potassium, S 4.3 3.6 - 5.2 mmol/L 06/21/2023 11:07 AM FINANCE PROFESSOR DTL Blood (Blood, Venous) 06/21/2023 9:28 AM FINANCE PROFESSOR 06/21/2023 10:10 AM FINANCE PROFESSOR Faustina Tuttle APRNNJordan, M.S ., M.S.N. LAB BLOOD ADD-ON [facility] [address] [place] [address], [facility] 200 [place] [address] * (ABNORMAL) Creatinine with Estimated GFR (06/21/2023 9:28 AM FINANCE PROFESSOR) Creatinine 1.98(H) 0.59 - 1.04 mg/dL 06/21/2023 11:07 AM FINANCE PROFESSOR DTL Estimated GFR (eGFR) 25(L) >=60 mL/min/BSA 06/21/2023 11:07 AM FINANCE PROFESSOR DTL Comment: Estimated GFR calculated using the 2020 CKD_EPI creatinine equation. Blood (Blood, Venous) 06/21/2023 9:28 AM FINANCE PROFESSOR 06/21/2023 10:10 AM FINANCE PROFESSOR Faustina Tuttle APRNNJordan, M.S ., M.S.N. LAB BLOOD ADD-ON Performing Organization Address City/[facility]/ZIP Co de Phone Number [facility] [address] [place] [address], [facility] [address] [place] [address] from Last 3 Months Advance Directives For more information, please contact: [phone] Documents on File Type Date Recorded Patient Pest Controller Assistant Expl anation Advance Directives 11/26/2006 12:00 AM [...] Answer Comments Full Code: Discussed Care Teams Photo Studio Assistant Relationship Specialty Start Date End Date Elsewhere, Pcp PCP - General Internal Medicine 04/08/22
--- OUTSIDE RECORDS SUMMARY | 2023-08-17 17:06 | XMS_ITS | Encounter Summary ---
Author Name Unknown Organization [facility] Address [address] [place] [address] Care Team Providers Care Agronomy Research Manager Name Role Phone Elsewhere, Pcp Primary Care Provider Unavailabl e Reason for Referral * Outpatient (Routine) - Authorized Specialty Diagnoses / Procedures Referred By Mignon garcia Referred To Contact Rheumatology Rosa Bolton APRN C.N.P., M.S. [address] [place] [phone] [facility] Referral ID Status Reason Start Date Expiration Date V isits Requested Visits Authorized [id number] Authorized 07/06/2023 01/04/2025 1 1 L BORER Reason for Visit * Outpatient (Routine) - Closed Specialty Diagnoses / Procedures Referred By Mignon garcia Referred To Contact Rheumatology Rosa Bolton APRN, C.N.P., M.S. [address] [place] [phone] [facility] Referral ID Status Reason Start Date Expiration Date Visits Re quested Visits Authorized [id number] Closed 11/12/2022 11/11/2025 1 1 Encounter Details Date Type Department Care Team ([facility] st Contact Info) Description 07/06/2023 11:15 AM WHEEL BORER Office Visit Division of Rheumatology in [place], [place] [address] [place] [address] Rosa Bolton APRN, C.N.P., M.S. 200 [place] [address] Arthritis Rheumatoid (HCC) (Primary Dx) Social History Tobacco Use Types Packs/Day Years [...] often do you attend chur ch or pentecostal services? More than 4 times per year 03/27/2022 Do you belong to any clubs o r organizations such as mu-ism groups, unions, fraternal or athletic groups, or [...] Answer Date Recorded PHQ-2 Score 3 09/24/2021 [facility] - Occupational Stress [...] place to sleep or slept in a fdc (including now)? No 03/27/2022 Depression Answer Date [...] AM CDT documented as of this encounter Progress Notes * Rosa Bolton APRN, C.N.P., M.S. - 07/06/2023 11:15 AM CST SUBJECTIVE CHIEF COMPLAINT / REASON FOR VISIT Angi Chen is a 78 y.o. female who presents for follow up of rheumatoid arthritis. HISTORY OF PRESENT ILLNESS Mrs. Chen is a 78-year-old lady with a history of rheumatoid arthritis, obstructive sleep apnea on CPAP, and congestive heart failure with preserved ejection fraction, pulmonary hypertension She has had a transbronchial right upper lobe biopsy on 06/23/17, which demonstrated mild chronic bronchiolitis, with alveolated parenchyma without specific diagnostic abnormality. No granulomas or neoplasm were identified. Her primary symptom is that of dyspnea on exertion in the context of HFpEF and chronotropic incompetence. 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 She is also following cardiology for her congestive heart failure Summer 2021 she had multiple hospitalizations related to her complex cardiac issues including valvereplacement September of 2021 recurrent tricuspid valve regurgitation after replacement. She had been managed both on hydroxychloroquine and leflunomide. Leflunomide have had been held. She can have difficulty with intermittent swelling in her wrists typically other joints have been fairly quiescent she has restarted taking the Arava or leflunomide 10 mg Wednesday through Wednesday. She takes hydroxychloroquine she is up-to-date with her hydroxychloroquine eye exam she updates this in June every year locally Working on postures has been able to swim and exercise in water. 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 She is recovering from this using walker toambulate. Still swimming Rheumatoid Arthritis Current Symptoms: fatigue, cough and dyspnea Current Symptoms: eyes not dry, no dry mouth, no fever, no excessive bruising, no chest pain, no nausea, no vomiting, no night sweats and no oral ulcers Previous Reports Reviewed:lab reports and office notes The following portions of the patient's history were reviewed and updated as appropriate: allergies, current medications, family history, and problem list. REVIEW OF SYSTEMS Pertinent positives and negatives as documented in the above history of present illness. Constitutional: Positive for fatigue. - Negative for fever and night sweats. Respiratory: Positive for coughing. Cardiovascular: - Negative for chest pain, pressure or tightness. Gastrointestinal: - Negative for nausea and vomiting. OBJECTIVE PHYSICAL EXAM Physical Exam General: Alert, oriented, appropriate affect, no apparent distress Skin: No rheumatic rashes. Eyes: Clear conjunctivae and lids. Ear, Nose and Throat: Moist oral mucosa without mucositis. Lymph: No cervical or supraclavicular adenopathy. Heart: Regular rate. Lungs: Clear to auscultation bilaterally. Abdomen: No tenderness or hepatosplenomegaly noted. Thyroid: normal Vessels: Normal radial and pedal pulses. No edema noted Gait: Using walker to ambulate Joints: No synovitis of the upper and lower extremities including hands, wrists, elbows, knees, ankles or feet bilaterally. Range of motion of the extremities including shoulder and hips are within functional limits bilaterally. Lab: Follows locally for monitoring chronic anemia and chronic kidney disease has elevated creatinine which has been stable and stable anemia between 9 and 10 hemoglobin. 09/13/2020 Tender joint count (0-28) 0 Swollen joint count (0-28) 0 Patient global assessment (0-100) -- Bomb Technician global assessment (0-100) 5 ESR (mm/h) 16 CRP (mg/L) 9.4 Disease Activity Score 28 using ESR ([id number]) -- Disease Activity Score 28 using CRP ([id number]) -- Clinical Disease Activity Index (CDAI) -- Simplified Disease Activity Index (SDAI) -- ASSESSMENT / PLAN #1 Arthritis Rheumatoid (HCC) Her rheumatoid arthritis is currently stable she has been having some left hand pain but this seemsto be resolving. No swollen joints on exam. Will continue with the hydroxychloroquine she will be updating her eye exam locally. Will continue with low-dose Arava 10 mg 5 days a week. Will continue for now on the 5 mg of prednisone in the future for want to taper this I would taper by 1 mg of her daily dose every month. I will see her back in follow-up in 6 months time. Patient's questions were answered they verbalized understanding and agreed with plan. L BORER documented in this encounter Plan of Treatment Scheduled Orders Name Type Priority Associated Diagnoses Orde r Schedule CBC with Differential, Blood Lab Routine Arthritis Rheumatoid (HCC) Expected: 01/04/2024 (Approximate), Expires: 07/06/2024 Sedimentation Rate Lab Routine Arthritis Rheumatoid (HCC) Expected: 01/04/2024 (Approximate), Expires: 07/06/2024 CRP (C-Reactive Protein) Lab Routine Arthritis Rheumatoid (HCC) Expected: 01/04/2024 (Approximate), Expires: 07/06/2024 Creatinine with Estimated GFR Lab Routine Arthritis Rheumatoid (HCC) Expected: 01/04/2024 (Approximate), Expires: 07/06/2024 AST (Aspartate Aminotransferase) Lab Routine Arthritis Rheumatoid (HCC) Expected: 01/04/2024 (Approximate), Expires: 07/06/2024 Scheduled Referrals Name Type Priority Associated Diagnoses Order Schedule Rheumatology office visit (clinic) Outpatient Referral Routine Expected: 01/04/2024 (Approximate), Expires: 10/03/2024 documented as of this encounter Visit Diagnoses Diagnosis Arthritis Rheumatoid (HCC)- Primary documented in this encounter Additional Health Concerns Assessment Noted Time PHQ-9 Depression Total Score: 10 022 2:00 PM CDT documented as of this encounter Care Teams Agronomy Research Manager Relationship Specialty Start Date End Date Elsewhere, Pcp PCP - General Internal Medicine 04/08/22 documented as of this encounter
--- OUTSIDE RECORDS SUMMARY | 2023-08-17 17:06 | XMS_ITS | Encounter Summary ---
Author Name Unknown Organization [facility] Address [address] [place] [address] Care Team Providers Care Production Expediter Name Role Phone Elsewhere, Pcp Primary Care Provider Unavailabl e Encounter Details Date Type Department Care Team (Latest Contact Info) Description 07/09/2023 2:45 PM SUPERVISOR LENDING ACTIVITIES - 07/09/2023 11:59 PM SUPERVISOR LENDING ACTIVITIES Hospital Encounter Department of Laboratory Medicine and Pathology, [facility] in [place], [place] [address] [place] [address] Eloy Cabrera M.D. [address] [place] [address] Sarcoidosis Pulmonary (HCC) Discharge Disposition: Home or Self Care Social History Tobacco Use Types Packs/Day Years [...] 03/27/2022 How often do you attend chur or restorationism services? More than 4 times per year 03/27/2022 Do you belong to any clubs o r organizations such as jain groups, unions, fraternal or athletic groups, or [...] Answer Date Recorded PHQ-2 Score 3 09/24/2021 [facility] - Occupational [...] money to buy more. Never true 03/27/20 Within the past 12 months, t he [...] place to sleep or slept in a longterm (including now)? No 03/27/2022 Depression Answer Date [...] AM CDT documented as of this encounter Medications at Time of Discharge Medication Sig Dispensed Refills Start Date End Date acetaminophen (TYLENOL) 500 mg tablet Take 2 tablets (1,000 mg total) by mouth every 6 (six) hours as needed for mild pain or score 1-3 of 10, moderate pain or score 4-6 of 10, headaches or fever. 0 09/04/2021 apixaban (ELIQUIS) 5 mg tablet Take 1 tablet (5 mg total) by mouth 2 (two) times a day. 180 tablet 3 10/22/2022 buPROPion XL (WELLBUTRIN XL) 300 mg 24 hr tablet Take 1 tablet by mouth daily. 0 04/05/2017 citalopram (CeleXA) 20 mg tablet Take 20 mg by mouth daily. 0 06/16/2013 cyanocobalamin (VITAMIN B12) 250 mcg tablet Take 250 mcg by mouth daily. Will check dosage 0 DME CPAPIndications:Apnea Sleep Obstructive DME Order 1 each 0 09/14/2022 epoetin tu (EPOGEN,PROCRIT) 10,000 Unit/mL injection Inject under the skin every 14 (fourteen) days. Unsure how many units 0 fluticasone furoate-vilanteroL (Breo Ellipta) 200-25 mcg/act inhalerIndications:Dys pnea On Exertion,Chronic Obstructive Pulmonary Disease (HCC) INHALE 1 PUFF EVERY DAY 60 each 10 03/08/2023 fluticasone propionate (FLONASE) 50 mcg/actuation nasal spray Administer 2 sprays into each nostril daily. 0 folic acid 1 mg tablet Take 1 mg by mouth daily. Will check dosage 0 hydroxychloroquine (PLAQUENIL) 200 mg tabletIndications:Arth ritis Rheumatoid (HCC) Take 2 tablets (400 mg total) by mouth every morning. Updated eye exam needed on file 180 tablet 1 07/06/2023 iron,carbonyl-vitamin C (VITRON-C) 65 mg iron- [address] tablet Take 1 tablet by mouth daily. 0 03/24/2017 leflunomide (ARAVA) 10 mg tabletIndications:Arth ritis Rheumatoid (HCC) TAKE 1 TABLET EVERY DAY ON WEDNESDAY THROUGH WEDNESDAY DIRECTED (NO MEDICATION ON WEDNESDAY OR WEDNESDAY) 60 tablet 1 07/06/2023 levothyroxine (SYNTHROID, LEVOTHROID) 137 mcg tablet Take 137 mcg by mouth every morning before breakfast. 0 loperamide (IMODIUM A-D) 2 mg capsule Take 1 capsule (2 mg total) by mouth 3 (three) times a day as needed for diarrhea. 0 10/31/2021 metoprolol succinate (TOPROL-XL) 25 mg 24 hr tablet Take 1 tablet (25 mg total) by mouth 2 (two) times a day. Do not crush or chew. 180 tablet 3 10/22/2022 10/22/2023 alsinncgxzeh-uctz-FO-C a-minerals (THERAPEUTIC-M) 400 mcg (folic acid) per tablet Take 1 tablet by mouth daily. 0 10/31/2021 omeprazole (PriLOSEC) [address] capsule Take 20 mg by mouth daily. In the morning 0 06/26/2021 potassium chloride (K-TAB) 20 mEq CR tablet Take 1 tablet (20 mEq total) by mouth daily. 90 tablet 3 10/22/2022 10/22/2023 predniSONE (DELTASONE) 5 mg tabletIndications:Arth ritis Rheumatoid (HCC) Take 1 tablet (5 mg total) by mouth daily. Continue through 12/01/2021. 90 tablet 3 11/12/2022 saliva substitution (BIOTENE DRY MOUTH ORAL RINSE) mouthwash Apply 1 application to the mouth or throat as needed (dry mouth). 0 10/31/2021 torsemide (DEMADEX) 20 mg tablet Take 3 tablets (60 mg total) by mouth daily. 270 tablet 3 06/19/2022 Ventolin HFA 90 mcg/actuation inhalerIndications:Dys pnea On Exertion,Chronic Obstructive Pulmonary Disease (HCC) Inhale 2 puffs every 4 (four) hours as needed for shortness of breath or wheezing. Doesn't take very often 8 g 3 11/05/2022 documented as of this encounter Plan of Treatment Not on file documented as of this encounter Procedures Procedure Name Priority Date/Time Associated Diagnosis Comments CBC WITHOUT DIFFERENTIAL, B Routine 07/09/2023 2:54 PM SUPERVISOR LENDING ACTIVITIES Sarcoidosis Pulmonary (HCC) COMPREHENSIVE METABOLIC PANEL, S/P Routine 07/09/2023 2:54 PM SUPERVISOR LENDING ACTIVITIES Sarcoidosis Pulmonary (HCC) 1,25-DIHYDROXYVITAMIN D, S Routine 07/09/2023 2:53 PM SUPERVISOR LENDING ACTIVITIES Sarcoidosis Pulmonary (HCC) 25-HYDROXYVITAMIN D2 AND D3, S Routine 07/09/2023 2:53 PM SUPERVISOR LENDING ACTIVITIES Sarcoidosis Pulmonary (HCC) documented in this encounter Results * (ABNORMAL) Comprehensive Metabolic Panel (07/09/2023 2:54 PM SUPERVISOR LENDING ACTIVITIES) [facility] Potassium, S 5.2 3.6 - 5.2 mmol/L 07/09/2023 4:08 PM SUPERVISOR LENDING ACTIVITIES DTL Sodium, S 142 135 - 145 mmol/L 07/09/2023 4:08 PM SUPERVISOR LENDING ACTIVITIES DTL Chloride, S 101 98 - 107 mmol/L 07/09/2023 4:08 PM SUPERVISOR LENDING ACTIVITIES DTL Bicarbonate, S 27 22 - 29 mmol/L 07/09/2023 4:08 PM SUPERVISOR LENDING ACTIVITIES DTL Anion Gap 14 7 - 15 07/09/2023 4:08 PM SUPERVISOR LENDING ACTIVITIES DTL BUN (Blood Urea Nitrogen), S 70(H) 6 - 21 mg/dL 07/09/2023 4:08 PM SUPERVISOR LENDING ACTIVITIES DTL Creatinine 2.00(H) 0.59 - 1.04 mg/dL 07/09/2023 4:08 PM SUPERVISOR LENDING ACTIVITIES DTL Estimated GFR (eGFR) 25(L) >=60 mL/min/BS A 07/09/2023 4:08 PM SUPERVISOR LENDING ACTIVITIES DTL Comment: Estimated GFR calculated using the 2020 CKD_EPI creatinine equation. Calcium, Total, S 9.2 8.8 - 10.2 mg/dL 07/09/2023 4:08 PM SUPERVISOR LENDING ACTIVITIES DTL Glucose, S 108 70 - 140 mg/dL 07/09/2023 4:08 PM SUPERVISOR LENDING ACTIVITIES DTL Protein, Total, S 7.3 6.3 - 7.9 g/dL 07/09/2023 4:08 PM SUPERVISOR LENDING ACTIVITIES DTL Albumin, S 4.6 3.5 - 5.0 g/dL 07/09/2023 4:08 PM SUPERVISOR LENDING ACTIVITIES DTL Aspartate Aminotransferase (AST), S 27 8 - 43 U/L 07/09/2023 4:08 PM SUPERVISOR LENDING ACTIVITIES DTL Alkaline Phosphatase, S 210(H) 35 - 104 U/L 07/09/2023 4:08 PM SUPERVISOR LENDING ACTIVITIES DTL Alanine Aminotransferase (ALT), S 26 7 - 45 U/L 07/09/2023 4:08 PM SUPERVISOR LENDING ACTIVITIES DTL Bilirubin, Total, S 0.8 0.0 - 1.2 mg/dL 07/09/2023 4:08 PM SUPERVISOR LENDING ACTIVITIES DTL Blood (Blood, Venous) 07/09/2023 2:54 PM SUPERVISOR LENDING ACTIVITIES 07/09/2023 3:19 PM SUPERVISOR LENDING ACTIVITIES Eloy Cabrera M.D. LAB BLOOD ADD-ON Performing Organization Address City/[facility]/ZIP Co de Phone Number [facility] [address] [place] [address], [facility] [address] [place] [address] * (ABNORMAL) CBC without Differential (07/09/2023 2:54 PM SUPERVISOR LENDING ACTIVITIES) Hemoglobin 8.3(L) 11.6 - 15.0 g/dL 07/09/2023 3:15 PM SUPERVISOR LENDING ACTIVITIES DTL Hematocrit 26.3(L) 35.5 - 44.9 % 07/09/2023 3:15 PM SUPERVISOR LENDING ACTIVITIES DTL Erythrocytes 2.74(L) 3.92 - 5.13 x10(12)/L 07/09/2023 3:15 PM SUPERVISOR LENDING ACTIVITIES DTL MCV 96.0 78.2 - 97.9 fL 07/09/2023 3:15 PM SUPERVISOR LENDING ACTIVITIES DTL RBC Distrib Width 18.0(H) 12.2 - 16.1 % 07/09/2023 3:15 PM SUPERVISOR LENDING ACTIVITIES DTL Platelet Count 267 157 - 371 x10(9)/L 07/09/2023 3:15 PM SUPERVISOR LENDING ACTIVITIES DTL Leukocytes 6.8 3.4 - 9.6 x10(9)/L 07/09/2023 3:15 PM SUPERVISOR LENDING ACTIVITIES DTL Blood (Blood, Venous) 07/09/2023 2:54 PM SUPERVISOR LENDING ACTIVITIES 07/09/2023 3:07 PM SUPERVISOR LENDING ACTIVITIES Eloy Cabrera M.D. LAB BLOOD ADD-ON Performing Organization Address City/[facility]/ZIP Co de Phone Number [facility] [address] [place] [address], [facility] DTL [facility] [address] [place] [address] * 25-Hydroxyvitamin D2 and D3 (07/09/2023 2:53 PM SUPERVISOR LENDING ACTIVITIES) 25-Hydroxy D2 5.5 ng/mL 07/13/2023 11:08 AM SUPERVISOR LENDING ACTIVITIES [facility] 25-Hydroxy D3 51 ng/mL 07/13/2023 11:08 AM SUPERVISOR LENDING ACTIVITIES SDS 25-Hydroxy D Total 57 ng/mL 2023 11:08 AM SUPERVISOR LENDING ACTIVITIES [facility] Comment: Interpretation: 51-80 ng/mL (increased risk of hypercalciuria) ----REFERENCE VALUE---- 25-HYDROXY D TOTAL (D2+D3) Optimum levels in the healthy population are 20-50, patients with bone disease may benefit from higher levels within this range. ----ADDITIONAL INFORMATION---- This test was developed and its performance characteristics determined by [facility] in a manner consistent with CLIA requirements. This test has not been cleared or approved by the U.S. Food and Drug Administration. Blood (Blood, Venous) 07/09/2023 2:53 PM SUPERVISOR LENDING ACTIVITIES 07/12/2023 7:23 AM SUPERVISOR LENDING ACTIVITIES Eloy Cabrera M.D. LAB BLOOD ADD-ON Performing Organization Address City/[facility]/ZIP Co de Phone Number [facility] [address] [place] [address] [facility] [address] [place] [address] [place] [address] * 1,25-Dihydroxyvitamin D (07/09/2023 2:53 PM SUPERVISOR LENDING ACTIVITIES) 1, 25 DIHYDROXYVITAMIN D, S 56 18 - 78 pg/mL 07/13/2023 11:56 PM SUPERVISOR LENDING ACTIVITIES [facility] Comment: ----ADDITIONAL INFORMATION---- This test was developed and its performance characteristics determined by [facility] in a manner consistent with CLIA requirements. This test has not been cleared or approved by the U.S. Food and Drug Administration. Blood (Blood, Venous) 07/09/2023 2:53 PM SUPERVISOR LENDING ACTIVITIES 07/12/2023 7:18 AM SUPERVISOR LENDING ACTIVITIES Eloy Cabrera M.D. LAB BLOOD ADD-ON Performing Organization Address City/[facility]/ZIP Co de Phone Number [facility] [address] [place] [address] [facility] [address] [place] [address] [place] [address] documented in this encounter Visit Diagnoses Diagnosis Sarcoidosis Pulmonary (HCC) documented in this encounter Additional Health Concerns Assessment Noted Time PHQ-9 Depression Total Score: 10 09/24/ 022 2:00 PM CDT documented as of this encounter Care Teams Production Expediter Relationship Specialty Start Date End Date Elsewhere, Pcp PCP - General Internal Medicine 04/08/22 documented as of this encounter
--- OUTSIDE RECORDS SUMMARY | 2023-08-17 17:06 | XMS_ITS ---
Author Name Unknown Organization [facility] Address [address] [place] [address] Care Team Providers Care Teletype Mechanic Name Role Phone Elsewhere, Pcp Primary Care Provider Unavailabl e Procedures Procedure Name Priority Date/Time Associated Diagnosis Comments COMPREHENSIVE METABOLIC PANEL, S/P Routine 07/09/2023 2:54 PM RADIOLOGIST DIAGNOSTIC Sarcoidosis Pulmonary (HCC) CBC WITHOUT DIFFERENTIAL, B Routine 07/09/2023 2:54 PM RADIOLOGIST DIAGNOSTIC Sarcoidosis Pulmonary (HCC) 25-HYDROXYVITAMIN D2 AND D3, S Routine 07/09/2023 2:53 PM RADIOLOGIST DIAGNOSTIC Sarcoidosis Pulmonary (HCC) 1,25-DIHYDROXYVITAMIN D, S Routine 07/09/2023 2:53 PM RADIOLOGIST DIAGNOSTIC Sarcoidosis Pulmonary (HCC) DX CHEST AP OR PA AND LATERAL 2 VIEWS RAD - Routine (most inpatients and all outpatients) 07/09/2023 12:21 PM RADIOLOGIST DIAGNOSTIC Dyspnea On Exertion Sarcoidosis Pulmonary (HCC) Acute On Chronic Diastolic (Congestive) Heart Failure (HCC) PULMONARY FUNCTION TESTS Routine 07/09/2023 10:44 AM RADIOLOGIST DIAGNOSTIC Dyspnea On Exertion Sarcoidosis Pulmonary (HCC) Acute On Chronic Diastolic (Congestive) Heart Failure (HCC) (DAYNE) 2D WITH COLOR, LIMITED DOPPLER AND CONTRAST Routine 07/02/2023 10:21 AM RADIOLOGIST DIAGNOSTIC 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) 2D LIMITED WITH COLOR AND DOPPLER Routine 06/21/2023 4:41 PM RADIOLOGIST DIAGNOSTIC Chronic Diastolic (Congestive) Heart Failure (HCC) 6 MINUTE WALK Routine 06/21/2023 1:00 PM RADIOLOGIST DIAGNOSTIC Chronic Diastolic (Congestive) Heart Failure (HCC) ECG Routine 06/21/2023 10:17 AM RADIOLOGIST DIAGNOSTIC Chronic Diastolic (Congestive) Heart Failure (HCC) URIC ACID, S/P Routine 06/21/2023 9:28 AM RADIOLOGIST DIAGNOSTIC Arthritis Rheumatoid (HCC) ASPARTATE AMINOTRANSFERASE (AST), S/P Routine 06/21/2023 9:28 AM RADIOLOGIST DIAGNOSTIC Arthritis Rheumatoid (HCC) C-REACTIVE PROTEIN (CRP), S/P Routine 06/21/2023 9:28 AM RADIOLOGIST DIAGNOSTIC Arthritis Rheumatoid (HCC) SEDIMENTATION RATE, B Routine 06/21/2023 9:28 AM RADIOLOGIST DIAGNOSTIC Arthritis Rheumatoid (HCC) SODIUM, S/P Routine 06/21/2023 9:28 AM RADIOLOGIST DIAGNOSTIC Chronic Diastolic (Congestive) Heart Failure (HCC) POTASSIUM, S/P Routine 06/21/2023 9:28 AM RADIOLOGIST DIAGNOSTIC Chronic Diastolic (Congestive) Heart Failure (HCC) NT-PRO B-TYPE NATRIURETIC PEPTIDE (BNP), S Routine 06/21/2023 9:28 AM RADIOLOGIST DIAGNOSTIC Chronic Diastolic (Congestive) Heart Failure (HCC) CREATININE WITH EGFR, S/P Routine 06/21/2023 9:28 AM RADIOLOGIST DIAGNOSTIC Chronic Diastolic (Congestive) Heart Failure (HCC) BUN (BLOOD UREA NITROGEN), S/P Routine 06/21/2023 9:28 AM RADIOLOGIST DIAGNOSTIC Chronic Diastolic (Congestive) Heart Failure (HCC) from Last 3 Months Allergies Active Allergy [...] In the morning 0 2 Active multivitamin-iron -ED-Di-sxqpqxeh (THERAPEUTIC-M) 400 mcg (folic acid) per tablet [...] Kidney Disease Stage 4 Glomerular Filtration Rate -06/08/2022 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 Anemia Of Chronic [...] Status Post 10/07/2021 Anticoagulant Therapy 10/07/2021 Therapy 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 No 03/27/2022 Depression Answer Date [...] Comments Blood Pressure 123/74 07/02/2023 1:51 PM RADIOLOGIST DIAGNOSTIC Pulse 90 07/02/2023 1:51 PM RADIOLOGIST DIAGNOSTIC Temperature 36.3 ??C (97.3 ??F) 11/14/2021 5:40 AM CD T Respiratory Rate 20 07/02/2023 10:3 9 AM RADIOLOGIST DIAGNOSTIC Oxygen Saturation 93% 07/09/2023 1:50 PM RADIOLOGIST DIAGNOSTIC Inhaled Oxygen Concentration - - Weight 68.5 kg (150 lb 14.5 oz) 07/02/2023 1:49 PM RADIOLOGIST DIAGNOSTIC Height 157.7 cm (5' 2.09) 07/02/2023 1:49 PM CS T Body Mass Index 27.52 07/02/2023 1:49 PM RADIOLOGIST DIAGNOSTIC Results * (ABNORMAL) CBC without Differential (07/09/2023 2:54 PM RADIOLOGIST DIAGNOSTIC) Pathologist [facility] [place] Hemoglobin 8.3(L) 11.6 - 15.0 g/dL 07/09/2023 3:15 PM RADIOLOGIST DIAGNOSTIC DTL Hematocrit 26.3(L) 35.5 - 44.9 % 07/09/2023 3:15 PM RADIOLOGIST DIAGNOSTIC DTL Erythrocytes 2.74(L) 3.92 - 5.13 x10(12)/L 07/09/2023 3:15 PM RADIOLOGIST DIAGNOSTIC DTL MCV 96.0 78.2 - 97.9 fL 07/09/2023 3:15 PM RADIOLOGIST DIAGNOSTIC DTL RBC Distrib Width 18.0(H) 12.2 - 16.1 % 07/09/2023 3:15 PM RADIOLOGIST DIAGNOSTIC DTL Platelet Count 267 157 - 371 x10(9)/L 07/09/2023 3:15 PM RADIOLOGIST DIAGNOSTIC DTL Leukocytes 6.8 3.4 - 9.6 x10(9)/L 07/09/2023 3:15 PM RADIOLOGIST DIAGNOSTIC DTL Blood (Blood, Venous) 07/09/2023 2:54 PM RADIOLOGIST DIAGNOSTIC 07/09/2023 3:07 PM RADIOLOGIST DIAGNOSTIC Eloy Cabrera M.D. LAB BLOOD ADD-ON [facility] [address] [place] [address], [facility] [address] [place] [address] * (ABNORMAL) Comprehensive Metabolic Panel (07/09/2023 2:54 PM RADIOLOGIST DIAGNOSTIC) Pathologist [facility] Potassium, S 5.2 3.6 - 5.2 mmol/L 07/09/2023 4:08 PM RADIOLOGIST DIAGNOSTIC DTL Sodium, S 142 135 - 145 mmol/L 07/09/2023 4:08 PM RADIOLOGIST DIAGNOSTIC DTL Chloride, S 101 98 - 107 mmol/L 07/09/2023 4:08 PM RADIOLOGIST DIAGNOSTIC DTL Bicarbonate, S 27 22 - 29 mmol/L 07/09/2023 4:08 PM RADIOLOGIST DIAGNOSTIC DTL Anion Gap 14 7 - 15 07/09/2023 4:08 PM RADIOLOGIST DIAGNOSTIC DTL BUN (Blood Urea Nitrogen), S 70(H) 6 - 21 mg/dL 07/09/2023 4:08 PM RADIOLOGIST DIAGNOSTIC DTL Creatinine 2.00(H) 0.59 - 1.04 mg/dL 07/09/2023 4:08 PM RADIOLOGIST DIAGNOSTIC DTL Estimated GFR (eGFR) 25(L) >=60 mL/min/BS A 07/09/2023 4:08 PM RADIOLOGIST DIAGNOSTIC DTL Comment: Estimated GFR calculated using the 2020 CKD_EPI creatinine equation. Calcium, Total, S 9.2 8.8 - 10.2 mg/dL 07/09/2023 4:08 PM RADIOLOGIST DIAGNOSTIC DTL Glucose, S 108 70 - 140 mg/dL 07/09/2023 4:08 PM RADIOLOGIST DIAGNOSTIC DTL Protein, Total, S 7.3 6.3 - 7.9 g/dL 07/09/2023 4:08 PM RADIOLOGIST DIAGNOSTIC DTL Albumin, S 4.6 3.5 - 5.0 g/dL 07/09/2023 4:08 PM RADIOLOGIST DIAGNOSTIC DTL Aspartate Aminotransferase (AST), S 27 8 - 43 U/L 07/09/2023 4:08 PM RADIOLOGIST DIAGNOSTIC DTL Alkaline Phosphatase, S 210(H) 35 - 104 U/L 07/09/2023 4:08 PM RADIOLOGIST DIAGNOSTIC DTL Alanine Aminotransferase (ALT), S 26 7 - 45 U/L 07/09/2023 4:08 PM RADIOLOGIST DIAGNOSTIC DTL Bilirubin, Total, S 0.8 0.0 - 1.2 mg/dL 07/09/2023 4:08 PM RADIOLOGIST DIAGNOSTIC DTL Blood (Blood, Venous) 07/09/2023 2:54 PM RADIOLOGIST DIAGNOSTIC 07/09/2023 3:19 PM RADIOLOGIST DIAGNOSTIC Eloy Cabrera M.D. LAB BLOOD ADD-ON [facility] [address] [place] [address], [facility] DTL [facility] [address] [place] [address] * 1,25-Dihydroxyvitamin D (07/09/2023 2:53 PM RADIOLOGIST DIAGNOSTIC) 1, 25 DIHYDROXYVITAMIN D, S 56 18 - 78 pg/mL 07/13/2023 11:56 PM RADIOLOGIST DIAGNOSTIC [facility] Comment: ----ADDITIONAL INFORMATION---- This test was developed and its performance characteristics determined by [facility] in a manner consistent with CLIA requirements. This test has not been cleared or approved by the U.S. Food and Drug Administration. Blood (Blood, Venous) 07/09/2023 2:53 PM RADIOLOGIST DIAGNOSTIC 07/12/2023 7:18 AM RADIOLOGIST DIAGNOSTIC Eloy Cabrera M.D. LAB BLOOD ADD-ON Performing Organization Address [facility] Co de Phone Number [facility] [address] [place] [address] [facility] [address] [place] [address] [place] [address] * 25-Hydroxyvitamin D2 and D3 (07/09/2023 2:53 PM RADIOLOGIST DIAGNOSTIC) 25-Hydroxy D2 5.5 ng/mL 07/13/2023 11:08 AM RADIOLOGIST DIAGNOSTIC [facility] 25-Hydroxy D3 51 ng/mL 07/13/2023 11:08 AM [facility] 25-Hydroxy D Total 57 ng/mL 2023 11:08 AM [facility] Comment: Interpretation: 51-80 ng/mL (increased risk of hypercalciuria) ----REFERENCE VALUE---- 25-HYDROXY D TOTAL (D2+D3) Optimum levels in the healthy population are 20-50, patients with bone disease may benefit from higher levels within this range. ----ADDITIONAL INFORMATION---- This test was developed and its performance characteristics determined by [facility] in a manner consistent with CLIA requirements. This test has not been cleared or approved by the U.S. Food and Drug Administration. Blood (Blood, Venous) 07/09/2023 2:53 PM RADIOLOGIST DIAGNOSTIC 07/12/2023 7:23 AM RADIOLOGIST DIAGNOSTIC Eloy Cabrera M.D. LAB BLOOD ADD-ON Performing Organization Address [facility]/ZIP Co de Phone Number [facility] [address] [place] [address] [facility] [address] [place] [address] [place] [address] * DX Chest AP or PA and Lateral 2 Views (07/09/2023 12:21 PM RADIOLOGIST DIAGNOSTIC) Anatomical Region Laterality Modality Chest, Thoracic RST LOS, Tho racic ARZ LOS, Thoracic FLA LOS N/A Digital Radiography Impressions 07/09/2023 12:36 PM RADIOLOGIST DIAGNOSTIC Sternotomy. Tricuspid annuloplasty. Abandoned epicardial pacing leads. Calcified tortuous aorta. Calcified tortuous aorta. Mild enlargement of the cardiac silhouette with pulmonary venous hypertension. Thoracolumbar curve with degenerative changes and compression of mid and lower thoracic vertebral bodies. Eventration right hemidiaphragm. No significant change since outside study of 04/21/2023. The pulmonary nodules identified on the [facility] CT examination of 11/05/2022 are not well demonstrated on current chest radiographs, likely reflecting differences in modality. Narrative 07/09/2023 12:36 PM RADIOLOGIST DIAGNOSTIC EXAM: ??DX CHEST AP OR PA AND [...] 04/21/2023. The pulmonary nodules identified on the [facility] CTexamination of 11/05/2022 are not well demonstrated on current chest radiographs, likely reflecting differencesin modality. Eloy Cabrera M.D. [facility] NG PROCEDURES * Pulmonary Function Tests (07/09/2023 10:44 AM RADIOLOGIST DIAGNOSTIC) FVC 1.91 L 07/09/2023 2:00 PM RADIOLOGIST DIAGNOSTIC [place] SENT SUITE FEV1 1.06 L 07/09/2023 2:00 PM [facility] FEV1/FVC 55.47 % 07/09/2023 2:00 PM [facility] CZN40-45% 0.35 L/s 07/09/2023 2:00 PM [facility] PEF PRE 3.97 L/s 07/09/2023 2:00 PM [facility] PIF PRE 3.11 L/s 07/09/2023 2:00 PM [facility] FEF 50 % FIF 50 PRE 17.16 % 07/09/2023 2:00 PM [facility] FET PRE 13.45 sec 07/09/2023 2:00 PM [facility] DLCO 5.48 ml/(min*mm Hg) 07/09/2023 2:00 PM [facility] VA 3.11 L 07/09/2023 2:00 PM [facility] TLC 4.42 L 07/09/2023 2:00 PM [facility] FRCPLETH PROVBASE 3.09 L 07/09/2023 2:00 PM [facility] RV 2.48 L 07/09/2023 2:00 PM [facility] RV % TLC PRE 56.01 % 07/09/2023 2:00 PM [facility] 07/09/2023 10:4 4 AM RADIOLOGIST DIAGNOSTIC Impressions [facility] - 07/09/2023 2:00 PM RADIOLOGIST DIAGNOSTIC Abnormal. Moderate obstruction with possible air trapping. [...] is increased. Eloy Cabrera M.D. PFT ORDERABLES [facility] [address] * (DAYNE) 2D WITH COLOR, LIMITED DOPPLER AND CONTRAST (07/02/2023 10:21 AM RADIOLOGIST DIAGNOSTIC) Ejection Fraction 50 MC CV EIMS Mid-Ascending Aorta 39 MC CV EIMS MV mean gradient 5 MC CV EIMS Anatomical Region Laterality Modality Echocardiography 07/02/2023 8:21 AM RADIOLOGIST DIAGNOSTIC Impressions 07/02/2023 11:11 AM RADIOLOGIST DIAGNOSTIC PRE-SEDATION ASSESSMENT & CONSENT (performed immediately prior to the start of the procedure): The goals, risks and alternatives to moderate sedation and the transesophageal echo were explained to the patient, questions were answered and consent was given to proceed. The physician reviewed the patient's history, medication list, allergies, and review of systems, and the findings as documented in the warehouse checker and also performed a pertinent examination including [...] performed at the request of the primary steam service inspector. Adult probe inserted without difficulty. LEFT VENTRICLE:Normal [...] Agitated saline injection(s) performed during sedation. No ekdnc-zv-[id number] shunt at atrial level at rest or [...] Sedation Narrator or other pertinent record in [facility] for additional procedure and sedation information. Physician signature for procedural medications and patient discharge when DC criteria met. For the complete report, see the Order-Level Documents. Narrative 07/02/2023 11:11 AM RADIOLOGIST DIAGNOSTIC For the complete report, see the Order-Level Documents. Hemodynamics Heart Rate: 61 BPM Blood Pressure: 121 / 72 mmHg ECG: Atrial fibrillation Final Impressions 1. Transesophageal echocardiogram performed at the request of the primary steam service inspector. 2. Status post 29mm [facility] Epic [...] intracardiac mass or thrombus identified. 10. No rfilp-hx-twbx shunt at atrial level at rest or [...] performed at the request of the primaryservice principal consultant. 2. Status post 29mm [facility] [...] intracardiac mass or thrombus identified. 10. No lzstu-tx-hdzc shunt at atrial level at rest or [...] and the findings as documented in the warehouse checker and alsoperformed a pertinent examination including a heart, airway and lungassessment. Mallampati Assessment: As documented in the RN pre-procedureassessment. Sedation plan: Transesophageal echo - moderate sedation. ASAphysical status score: Class III. The patient's identity and all neededequipment were confirmed and a final confirmatory pause was performed bythe team immediately prior to start. PROCEDURAL ECHO FINDINGS:Transesophageal echocardiogram performed at the request of the primaryservice principal consultant. Adult probe inserted without difficulty. LEFT [...] cava. Agitated saline injection(s) performed during sedation. Ewsvwkc-ml-hjum shunt at atrial level at rest or [...] See Sedation Narrator orother pertinent record in [facility] for additional procedure and sedationinformation. Physician signature for procedural medications and patientdischarge when DC criteria met. For the complete report, see the Order-Level Documents. Emi Georges APRN, C.N.P., M.S ., M.S.N. CV ECHO PROCEDURES * (TTE) 2D LIMITED WITH COLOR AND DOPPLER (06/21/2023 4:41 PM RADIOLOGIST DIAGNOSTIC) Ejection Fraction 52 MC CV EIMS Mid-Ascending [...] Region Laterality Modality Echocardiography 06/21/2023 2:56 PM RADIOLOGIST DIAGNOSTIC Impressions 06/21/2023 5:15 PM RADIOLOGIST DIAGNOSTIC Hemoglobin 9.9 g/dL (22-OCT-2022). LEFT VENTRICLE:Normal left [...] the Order-Level Documents. Narrative 06/21/2023 5:15 PM RADIOLOGIST DIAGNOSTIC For the complete report, see the Order-Level [...] the complete report, see the Order-Level Documents. Emi Georges APRN C.N.P., M.S ., M.S.N. CV ECHO PROCEDURES * 6 MINUTE WALK (06/21/2023 1:00 PM RADIOLOGIST DIAGNOSTIC) Narrative Rose Marie Mascorro APRN, C.N.P., M.S.N. - 06/21/2023 1:00 PM RADIOLOGIST DIAGNOSTIC Rose Marie Mascorro APRN, C.N.P., M.S.N. ? 06/21/2023 ??2:45 PM Six Minute Walk Performed by: Rey Egan CRAT Authorized by: Emi Wilson APRN, C.N.P., M.S., M.S.N. ?? Were medications taken in [...] No Angina Stacey Dyspnea: ??2 - Slight Tsacey Fatigue: ??3 - Moderate POST WALK Heart Rate: ??106 Heart Rate Source: ??Apical Pulse SpO2: ??97 BP: ??138/66 BP Cuff Side: ??Left Angina Scale: ??0 - No Angina Stacey Dyspnea: ??4 - Somewhat Severe Stacey Fatigue: ??4 - Somewhat Severe Time of Test: ??13:00 RADIOLOGIST DIAGNOSTIC Total Distance Walked (Feet): ??790 Total Distance Walked (Meters): ??240.79 Total # of Times Stopped: ??0 Time Stopped (Seconds): ??0 Time Walked (Seconds): ??360 CALCULATIONS Estimated MPH: ??1.5 Estimated METs: ??2.15 % of Predicted Distance: ??61.15 Emi Georges APRN, C.N.P., M.S ., M.S.N. CV STRESS PROCEDURES * ECG 12 Lead (06/21/2023 10:17 AM RADIOLOGIST DIAGNOSTIC) Ventricular Rate ECG/Min 79 BPM MUSE QRSD Interval 88 ms MUSE QT Interval 392 ms MUSE QTC Interval 449 ms MUSE R Franklin 106 degrees MUSE T Wave Franklin 6 degrees MUSE 06/21/2023 10:1 7 AM RADIOLOGIST DIAGNOSTIC 06/21/2023 10:27 AM RADIOLOGIST DIAGNOSTIC Impressions MUSE - 06/21/2023 10:27 AM RADIOLOGIST DIAGNOSTIC Atrial fibrillation Rightward axis Nonspecific ST and [...] ., M.S.N. ECG ORDERABLES Performing Organization Address [facility] Co de Phone Number MUSE NA * (ABNORMAL) NT-Pro B-Type Natriuretic Peptide (BNP) (06/21/2023 9:28 AM RADIOLOGIST DIAGNOSTIC) NT-Pro BNP 9686(H) <=540 pg/mL 06/21/2023 11:07 AM RADIOLOGIST DIAGNOSTIC DTL Comment: NT-proBNP values less than 300 [...] failure. Blood (Blood, Venous) 06/21/2023 9:28 AM RADIOLOGIST DIAGNOSTIC 06/21/2023 10:10 AM RADIOLOGIST DIAGNOSTIC Emi Georges APRN, Tristian.NVikasP., M.S ., M.S.N. LAB BLOOD ADD-ON [facility] [address] [place] [address], [place] DTL [facility] [address] [place] [address] * (ABNORMAL) Sedimentation Rate (06/21/2023 9:28 AM RADIOLOGIST DIAGNOSTIC) Sedimentation Rate, B 30(H) 3 - 28 mm/h 06/21/2023 11:21 AM RADIOLOGIST DIAGNOSTIC DTL Blood (Blood, Venous) 06/21/2023 9:28 AM RADIOLOGIST DIAGNOSTIC 06/21/2023 9:56 AM RADIOLOGIST DIAGNOSTIC Tristian Thompson APRN.N.Ave., M.S. LAB BLOOD ADD-ON Performing Organization Address [facility] Co de Phone Number [facility] [address] [place] [address] * (ABNORMAL) CRP (C-Reactive Protein) (06/21/2023 9:28 AM RADIOLOGIST DIAGNOSTIC) C-Reactive Protein (CRP), S 41.6(H) <5.0 mg/L 06/21/2023 11:07 AM RADIOLOGIST DIAGNOSTIC DT Blood (Blood, Venous) 06/21/2023 9:28 AM RADIOLOGIST DIAGNOSTIC 06/21/2023 10:10 AM RADIOLOGIST DIAGNOSTIC Tristian Thompson APRN.N.P., M.S. LAB BLOOD ADD-ON Performing Organization Address [facility] Co de Phone Number [facility] [address] [place] [address] * (ABNORMAL) Uric Acid (06/21/2023 9:28 AM RADIOLOGIST DIAGNOSTIC) Uric Acid, S 11.1(H) 2.7 - 6.1 mg/dL 06/21/2023 11:07 AM RADIOLOGIST DIAGNOSTIC DTL Blood (Blood, Venous) 06/21/2023 9:28 AM RADIOLOGIST DIAGNOSTIC 06/21/2023 10:10 AM RADIOLOGIST DIAGNOSTIC Tristian Thompson APRN.N.P., M.S. LAB BLOOD ADD-ON [facility] 200 [place], [place] [id number] [place] [address] 200 [place] [address] * (ABNORMAL) BUN (Blood Urea Nitrogen) (06/21/2023 9:28 AM RADIOLOGIST DIAGNOSTIC) BUN (Blood Urea Nitrogen), S 51(H) 6 - 21 mg/dL 06/21/2023 11:07 AM RADIOLOGIST DIAGNOSTIC DTL Blood (Blood, Venous) 06/21/2023 9:28 AM RADIOLOGIST DIAGNOSTIC 06/21/2023 10:10 AM RADIOLOGIST DIAGNOSTIC Emi Georges APRN, C.N.P., M.S ., M.S.N. LAB BLOOD ADD-ON Performing Organization Address [facility]/ZIP Co de Phone Number [facility] [address] 200 [place] [address] * AST (Aspartate Aminotransferase) (06/21/2023 9:28 AM RADIOLOGIST DIAGNOSTIC) Aspartate Aminotransferase (AST), S 26 8 - 43 U/L 06/21/2023 11:07 AM RADIOLOGIST DIAGNOSTIC DT Blood (Blood, Venous) 06/21/2023 9:28 AM RADIOLOGIST DIAGNOSTIC 06/21/2023 10:10 AM RADIOLOGIST DIAGNOSTIC Rosa Bolton APRN C.N.P., M.S. LAB BLOOD ADD-ON [facility] 200 [place], [place] [id number] [place] [address] 200 [place] [address] * Sodium (06/21/2023 9:28 AM RADIOLOGIST DIAGNOSTIC) Sodium, S 135 135 - 145 mmol/L 06/21/2023 11:07 AM RADIOLOGIST DIAGNOSTIC DTL Blood (Blood, Venous) 06/21/2023 9:28 AM RADIOLOGIST DIAGNOSTIC 06/21/2023 10:10 AM RADIOLOGIST DIAGNOSTIC Emi Georges APRN, C.N.P., M.S ., M.S.N. LAB BLOOD ADD-ON Performing Organization Address [facility] Co de Phone Number [facility] [address] [place] [address] * Potassium (06/21/2023 9:28 AM RADIOLOGIST DIAGNOSTIC) Potassium, S 4.3 3.6 - 5.2 mmol/L 06/21/2023 11:07 AM RADIOLOGIST DIAGNOSTIC DTL Blood (Blood, Venous) 06/21/2023 9:28 AM RADIOLOGIST DIAGNOSTIC 06/21/2023 10:10 AM RADIOLOGIST DIAGNOSTIC Emi Georges APRN, C.N.P., M.S ., M.S.N. LAB BLOOD ADD-ON Performing Organization Address [facility] Co de Phone Number [facility] [address] [place] [address], [place] [address] * (ABNORMAL) Creatinine with Estimated GFR (06/21/2023 9:28 AM RADIOLOGIST DIAGNOSTIC) Creatinine 1.98(H) 0.59 - 1.04 mg/dL 06/21/2023 11:07 AM RADIOLOGIST DIAGNOSTIC DTL Estimated GFR (eGFR) 25(L) >=60 mL/min/BSA 06/21/2023 11:07 AM RADIOLOGIST DIAGNOSTIC DTL Comment: Estimated GFR calculated using the 2020 CKD_EPI creatinine equation. Blood (Blood, Venous) 06/21/2023 9:28 AM RADIOLOGIST DIAGNOSTIC 06/21/2023 10:10 AM RADIOLOGIST DIAGNOSTIC Emi Georges APRN, C.N.P., M.S ., M.S.N. LAB BLOOD ADD-ON [facility] [address] [place] [address], [facility] DTL [facility] [address] [place] [address] from Last 3 Months
--- OUTSIDE RECORDS SUMMARY | 2023-08-17 17:06 | XMS_ITS | Encounter Summary ---
Author Name Unknown Organization [facility] Address [address] [place] [id number] Care Team Providers Care Real Estate Financial Analyst Name Role Phone Elsewhere, Pcp Primary Care Provider Unavailabl e Reason for Visit * Reason Comments Med Refill Encounter Details Date Type Department Care Team (Late st Contact Info) Description 07/03/2023 Refill Division of Rheumatology in [place], [place] [address] [place] [phone] Rosa Bolton, DIPAK, C.N.P., M.S. [address] [place] [phone] Med Refill Social History Tobacco Use Types Packs/Day Years [...] often do you attend chur ch or oriental orthodox services? More than 4 times per year 03/27/2022 Do you belong to any clubs o r organizations such as yazidism groups, unions, fraternal or athletic groups, or [...] Answer Date Recorded PHQ-2 Score 3 09/24/2021 [facility] - Occupational [...] place to sleep or slept in a usp (including now)? No 03/27/2022 Depression Answer Date [...] AM CDT documented as of this encounter Plan of Treatment Not on file documented as of this encounter Visit Diagnoses Diagnosis Arthritis Rheumatoid (HCC) documented in this encounter Additional Health Concerns Assessment Noted Time PHQ-9 Depression Total Score: 10 022 2:00 PM CDT documented as of this encounter Care Teams Real Estate Financial Analyst Relationship Specialty Start Date End Date Elsewhere, Pcp PCP - General Internal Medicine 04/08/22 documented as of this encounter
--- OUTSIDE RECORDS SUMMARY | 2023-08-17 17:06 | XMS_ITS | Encounter Summary ---
Author Name Unknown Organization [facility] Address [address] [place] [address] Care Team Providers Care Teleprinter Installer Name Role Phone Elsewhere, Pcp Primary Care Provider Unavailabl e Reason for Referral * Outpatient (Routine) - Closed Specialty Diagnoses / Procedures Referred By Mignon garcia Referred To Contact Diagnoses Dyspnea On Exertion Sarcoidosis Pulmonary (HCC) Acute On Chronic Diastolic (Congestive) Heart Failure (HCC) Procedures DX Chest AP or PA and Lateral 2 Views Eloy Cabrera M.D. [address] [place] [address] [facility] Referral ID Status Reason Start Date Expiration Date Visits Re quested Visits Authorized [id number] Closed 11/09/2022 11/09/2023 1 1 STAFF ACCOUNTANT Reason for Visit * Outpatient (Routine) - Closed Specialty Diagnoses / Procedures Referred By Mignon garcia Referred To Contact Diagnoses Dyspnea On Exertion Sarcoidosis Pulmonary (HCC) Acute On Chronic Diastolic (Congestive) Heart Failure (HCC) Procedures DX Chest AP or PA and Lateral 2 Views Eloy Cabrera M.D. [address] [place] [address] [facility] Referral ID Status Reason Start Date Expiration Date Visits Re quested Visits Authorized [id number] Closed 11/09/2022 11/09/2023 1 1 Encounter Details Date Type Department Care Team (Latest Contact Info) Description 07/09/2023 12:07 PM TAX STAFF ACCOUNTANT - 07/09/2023 2:44 PM TAX STAFF ACCOUNTANT Hospital Encounter Department of Radiology, [facility], in [place], [place] [address] [place] [address] Eloy Cabrera M.D. [address] [place] [address] Dyspnea On Exertion; Sarcoidosis Pulmonary (HCC); Acute [...] How often do you attend chur or denominational services? More than 4 times per year 03/27/2022 Do you belong to any clubs o r organizations such as sikh groups, unions, fraternal or athletic groups, or [...] Answer Date Recorded PHQ-2 Score 3 09/24/2021 [facility] - Occupational [...] place to sleep or slept in a [place] [facility] [place] facility (including now)? No 03/27/2022 Depression Answer Date [...] or chew. 180 tablet 3 10/22/2022 10/22/2023 [id number] a-minerals (THERAPEUTIC-M) 400 mcg (folic acid) per [...] Procedure Name Priority Date/Time Associated Diagnosis Comments DX CHEST AP OR PA AND LATERAL 2 VIEWS RAD - Routine (most inpatients and all outpatients) 07/09/2023 12:21 PM TAX STAFF ACCOUNTANT Dyspnea On Exertion Sarcoidosis Pulmonary (HCC) Acute On Chronic Diastolic (Congestive) Heart Failure (HCC) documented in this encounter Results * DX Chest AP or PA and Lateral 2 Views (07/09/2023 12:21 PM TAX STAFF ACCOUNTANT) Anatomical Region Laterality Modality Chest, Thoracic RST LOS, Tho racic ARZ LOS, Thoracic FLA LOS N/A Digital Radiography Impressions 07/09/2023 12:36 PM TAX STAFF ACCOUNTANT Sternotomy. Tricuspid annuloplasty. Abandoned epicardial pacing leads. Calcified tortuous aorta. Calcified tortuous aorta. Mild enlargement of the cardiac silhouette with pulmonary venous hypertension. Thoracolumbar curve with degenerative changes and compression of mid and lower thoracic vertebral bodies. Eventration right hemidiaphragm. No significant change since outside study of 04/21/2023. The pulmonary nodules identified on the [facility] CT examination of 11/05/2022 are not well demonstrated on current chest radiographs, likely reflecting differences in modality. Narrative 07/09/2023 12:36 PM TAX STAFF ACCOUNTANT EXAM: ??DX CHEST AP OR PA AND [...] The pulmonary nodules identified on the [facility] CTexamination of 11/05/2022 are not well demonstrated on current chest radiographs, likely reflecting differencesin modality. Eloy [facility]NO[facility] IMAG[facility] NG PROCEDURES documented in this encounter Visit Diagnoses Diagnosis Dyspnea On Exertion Sarcoidosis Pulmonary (HCC) Acute On Chronic Diastolic (Congestive) Heart Failure (HCC) documented in this encounter Additional Health Concerns Assessment Noted Time PHQ-9 Depression Total Score: 10 09/24/ 022 2:00 PM CDT documented as of this encounter Care Teams Teleprinter Installer Relationship Specialty Start Date End Date Elsewhere, Pcp PCP - General Internal Medicine 04/08/22 documented as of this encounter
--- OUTSIDE RECORDS SUMMARY | 2023-08-17 17:06 | XMS_ITS | Encounter Summary ---
Author Name Unknown Organization [facility] Address [address] [place] [id number] Care Team Providers Care Director Call Center Sales Name Role Phone Elsewhere, Pcp Primary Care Provider Unavailabl e Reason for Visit * Reason Comments Med Refill Encounter Details Date Type Department Care Team ([facility] st Contact Info) Description 08/15/2023 Refill Department of Cardiovascular Medicine in [place], [place] [address] [place] [phone] Emi Wilson APRN, C.N.P., M.S., M.S.N. [address] [place] [phone] Med Refill Social History Tobacco Use Types [...] often do you attend chur ch or christianity services? More than 4 times per year 03/27/2022 Do you belong to any clubs o r organizations such as zoroastrian groups, unions, fraternal or athletic groups, or [...] Answer Date Recorded PHQ-2 Score 3 09/24/2021 [facility] - Occupational Stress [...] place to sleep or slept in a residential (including now)? No 03/27/2022 Depression Answer Date [...] AM CDT documented as of this encounter Miscellaneous Notes * Telephone Encounter - Bernadette Amos - 08/16/2023 9:50 AM CDT Patient should have active scripts until mid October 2023. Please see below. Thank you. Prescribing Provider Encounter Provider Emi Wilson APRN, Tristian.N.Ave., M.S.N. Emi Wilson APRN, C.N.P., M.S.N. Outpatient Medication Detail Disp Refills Start End metoprolol succinate (TOPROL-XL) 25 mg 24 hr tablet 180 tablet 3 10/22/2022 10/22/2023 Sig - Route: Take 1 tablet (25 mg total) by mouth 2 (two) times a day. Do not crush or chew. - oral Sent to pharmacy as: metoprolol succinate ER 25 mg tablet,extended release 24 hr (TOPROL-XL) E-Prescribing Status: Receipt confirmed by pharmacy (10/22/2022 1:46 PM CDT) Pharmacy [facility] - [facility] [id number] documented in this encounter Plan of Treatment Not on file documented as of this encounter Visit Diagnoses Not on filedocumented in this encounter Additional Health Concerns Assessment Noted Time PHQ-9 Depression Total Score: 10 022 2:00 PM CDT documented as of this encounter Care Teams Director Call Center Sales Relationship Specialty Start Date End Date Elsewhere, Pcp PCP - General Internal Medicine 04/08/22 documented as of this encounter
--- OUTSIDE RECORDS SUMMARY | 2023-08-17 17:06 | XMS_ITS | Encounter Summary ---
Author Name Unknown Organization [facility] Address [address] [place] [id number] Care Team Providers Care Cartridge Assembler Name Role Phone Elsewhere, Pcp Primary Care Provider Unavailabl e Reason for Referral * Outpatient (Routine) - Authorized Specialty Diagnoses / Procedures Referred By Contac t Referred To Contact Diagnoses Dyspnea On Exertion Sarcoidosis Pulmonary (HCC) Procedures ECG 12 Lead Eloy Cabrera M.D. [address] [place] [phone] [facility] Referral ID Status Reason Start Date Expiration Date V isits Requested Visits Authorized [id number] Authorized 07/12/2023 07/11/2024 1 1 EAR POWER REACTOR OPERATOR * Outpatient (Routine) - Authorized Specialty Diagnoses / Procedures Referred By Contac t Referred To Contact Diagnoses Dyspnea On Exertion Sarcoidosis Pulmonary (HCC) Procedures DX Chest AP or PA and Lateral 2 Views Eloy Cabrera M.D. [address] [place] [address] [facility] Referral ID Status Reason Start Date Expiration Date V isits Requested Visits Authorized [id number] Authorized 07/12/2023 07/11/2024 1 1 EAR POWER REACTOR OPERATOR * Outpatient (Routine) - Authorized Specialty Diagnoses / Procedures Referred By Mignon garcia Referred To Contact Pulmonary Medicine Diagnoses Dyspnea On Exertion Sarcoidosis Pulmonary (HCC) Eloy Cabrera M.D. [address] [place] [phone] [facility] Referral ID Status Reason Start Date Expiration Date V isits Requested Visits Authorized [id number] Authorized 07/12/2023 01/10/2025 1 1 EAR POWER REACTOR OPERATOR Reason for Visit * Outpatient (Routine) - Closed Specialty Diagnoses / Procedures Referred By Mignon garcia Referred To Contact Pulmonary Medicine Diagnoses Dyspnea On Exertion Sarcoidosis Pulmonary (HCC) Acute On Chronic Diastolic (Congestive) Heart Failure (HCC) Eloy Cabrera M.D. [address] [place] [phone] [facility] Referral ID Status Reason Start Date Expiration Date Visits Re quested Visits Authorized [id number] Closed 11/09/2022 11/08/2025 1 1 Encounter Details Date Type Department Care Team (Late st Contact Info) Description 07/09/2023 2:00 PM NUCLEAR POWER REACTOR OPERATOR Office Visit Division of Pulmonary Medicine in [place], [place] [address] [place] [phone] Eloy Cabrera M.D. [address] [place] [phone] Sarcoidosis Pulmonary (HCC) (Primary Dx); Dyspnea On Exertion; Acute On Chronic Diastolic (Congestive) Heart Failure (HCC) Social [...] How often do you attend chur or bahai services? More than 4 times per year 03/27/2022 Do you belong to any clubs o r organizations such as catholic groups, unions, fraternal or athletic groups, or [...] Answer Date Recorded PHQ-2 Score 3 09/24/2021 [facility] of Occupat ional Health - Occupational Stress [...] place to sleep or slept in a snf (including now)? No 03/27/2022 Depression Answer Date [...] Sign Reading Time Taken Comments Blood Pressure - - Pulse - - Temperature - - Respiratory Rate - - Oxygen Saturation 93% 07/09/2023 1:50 PM NUCLEAR POWER REACTOR OPERATOR Inhaled Oxygen Concentration - - Weight - - Height - - Body Mass Index - - documented in this encounter Patient Instructions * Patient Instructions* Eloy Cabrera M.D. - 07/09/2023 2:00 PM NUCLEAR POWER REACTOR OPERATOR - Please obtain an eye exam. Recommend eye exam (slit lamp, fundoscopy, and tonometry) yearly for sarcoidosis, note this can be combined with Plaquenil eye exam monitoring EAR POWER REACTOR OPERATOR documented in this encounter Progress Notes * Eloy Cabrera M.D. - 07/09/2023 2:00 PM CST PULMONARY MEDICINE PROGRESS NOTE SUBJECTIVE CHIEF COMPLAINT / REASON FOR VISIT Follow up of pulmonary sarcoidosis HISTORY OF PRESENT ILLNESS Ms. Chen is a 78 y.o. 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 Patient was diagnosed with presumed pulmonary sarcoidosis without evidence of cardiac involvement in 2017. Transbronchial right upper lobe biopsy 06/23/2017 demonstrated mild chronic bronchiolitis with alveolated parenchyma without specific diagnostic abnormality. No granulomas or neoplasm were identified. PET- CT 08/2017 demonstrated increased FDG uptake in mediastinal and bilateral hilar lymph nodes with scattered small pulmonary nodules and opacities in an upper lobe predominance concerning for sarcoidosis or other granulomatous disease. There was no evidence of cardiac involvement. Patient was last seen in clinic 11/05/2022 for follow-up of pulmonary sarcoidosis and dyspnea. CT was much improved. Dyspnea was felt to be multifactorial with contributions including heart failure and deconditioning. Patient was recommended follow-up in 6 months for sarcoidosis. Today, patient reports she continues to have persistent dyspnea, but that she feels she continues to improve from a strength standpoint from her very difficult 2021 and early 2022. Dyspnea is improved from 2021. She uses a 4 wheel walker outside the home, but nothing inside the home. She could walkabout 1.5 blocks without stopping and taking a break, but does get winded even with talking at times. mMRC = 2. She is exercising regularly, mostly with pool training 2-3x weekly, though not in the past month with her [employer] black trainer out of town. Patient endorses rare phlegm production. Denies cough, hemoptysis, wheezing, chest pain, fever, chills, night sweats, vision changes, skin rashes. She continues on Breo once daily and albuterol prn. CXR shows enlarged cardiac silhouette but overall improved lung anderson. PFTs demonstrate stable obstruction and similar DLCO. The following portions of the patient's history were reviewed and updated as appropriate: allergies, current medications, surgical history, social history, problem list, and medical history. CURRENT MEDICATIONS Current Outpatient Medications Medication Sig acetaminophen (TYLENOL) 500 mg tablet Take 2 tablets (1,000 mg total) by mouth every 6 (six) hours as needed for mild pain or score 1-3 of 10, moderate pain or score 4-6 of 10, headaches or fever. apixaban (ELIQUIS) 5 mg tablet Take 1 tablet (5 mg total) by mouth 2 (two) times a day. buPROPion XL (WELLBUTRIN XL) 300 mg 24 hr tablet Take 1 tablet by mouth daily. citalopram (CeleXA) 20 mg tablet Take 20 mg by mouth daily. cyanocobalamin (VITAMIN B12) 250 mcg tablet Take 250 mcg by mouth daily. Will check dosage DME CPAP DME Order epoetin tu (EPOGEN,PROCRIT) 10,000 Unit/mL injection Inject under the skin every 14 (fourteen) days. Unsure how many units fluticasone furoate-vilanteroL (Breo Ellipta) 200-25 mcg/act inhaler INHALE 1 PUFF EVERY DAY fluticasone propionate (FLONASE) 50 mcg/actuation nasal spray Administer 2 sprays into each nostrildaily. folic acid 1 mg tablet Take 1 mg by mouth daily. Will check dosage iron,carbonyl-vitamin C (VITRON-C) 65 mg iron- [address] tablet Take 1 tablet by mouth daily. leflunomide (ARAVA) 10 mg tablet TAKE 1 TABLET EVERY DAY ON WEDNESDAY THROUGH WEDNESDAY DIRECTED (NO MEDICATION ON WEDNESDAY OR WEDNESDAY) levothyroxine (SYNTHROID, LEVOTHROID) 137 mcg tablet Take 137 mcg by mouth every morning before breakfast. metoprolol succinate (TOPROL-XL) 25 mg 24 hr tablet Take 1 tablet (25 mg total) by mouth 2 (two) times a day. Do not crush or chew. npmqxdebjibu-hhgk-TS-Ca-minerals (THERAPEUTIC-M) 400 mcg (folic acid) per tablet Take 1 tablet by mouth daily. omeprazole (PriLOSEC) [address] capsule Take 20 mg by mouth daily. In the morning potassium chloride (K-TAB) 20 mEq CR tablet Take 1 tablet (20 mEq total) by mouth daily. predniSONE (DELTASONE) 5 mg tablet Take 1 tablet (5 mg total) by mouth daily. Continue through 12/01/2021. saliva substitution (BIOTENE DRY MOUTH ORAL RINSE) mouthwash Apply 1 application to the mouth or throat as needed (dry mouth). torsemide (DEMADEX) 20 mg tablet Take 3 tablets (60 mg total) by mouth daily. (Patient taking differently: Take 60 mg by mouth daily. Patient states she takes a extra 3 tablets if weight increases over 5lbs) Ventolin HFA 90 mcg/actuation inhaler Inhale 2 puffs every 4 (four) hours as needed for shortness of breath or wheezing. Doesn't take very often hydroxychloroquine (PLAQUENIL) 200 mg tablet Take 2 tablets (400 mg total) by mouth every morning. Updated eye exam needed on file loperamide (IMODIUM A-D) 2 mg capsule Take 1 capsule (2 mg total) by mouth 3 (three) times a day asneeded for diarrhea. REVIEW OF SYSTEMS Pertinent positives and negatives are reviewed and mentioned in HPI. OBJECTIVE Vitals: 07/09/23 1350 SpO2: 93% PHYSICAL EXAMINATION Reviewed vital signs documented by nursing. General: Frail but well appearing. Sitting in chair comfortably, no acute distress. Eyes: No scleral icterus, conjunctiva clear. HENT: Atraumatic, normocephalic. Moist mucous membranes. Lymph: No cervical or supraclavicular lymphadenopathy. Heart: Regular rate and rhythm. No murmurs. Lungs: Clear to auscultation bilaterally. No wheezes or crackles. Comfortable on room air. Extremities: Warm and well perfused. Neuro: Alert, oriented, conversant. No gross motor deficits appreciated. Skin: Warm, dry, intact. Psych: Normal mood and affect. Answered questions appropriately. ASSESSMENT / PLAN # Multifactorial dyspnea, stablizing # Deconditioning # Presumed nodular pulmonary sarcoidosis (PET 2018 negative for cardiac involvement) # PFTs with obstruction and severe reduction in diffusing capacity # Rheumatoid arthritis on prednisone and hydroxychloroquine # EDITH on CPAP # HFpEF, EF 50% 06/2023 # Mitral regurgitation and severe TR s/p mitral valve replacement and tricuspid valve repair 10/07/2021 # Chronotropic incompetence # Atrial fibrillation previously on apixaban # Pulmonary hypertension # Chronic anemia on IV iron infusions # History GI bleed with gastric and duodenal angiodysplasia # Collagenous colitis on imodium # CKD IIIb # Thyroidectomy on levothyroxine Patient presents for follow-up of pulmonary sarcoidosis. She continues to have dyspnea, but this ismultifactorial with significant cardiac comorbidities. She has noted dyspnea worsens with increasedweight related to heart failure and improves when she is euvolemic. We discussed that her sarcoidosis is probably not the main forklift driver of her current dyspnea and not likely significantly changing based on present imaging and PFTs, we will obtain additional lab testing to round out screening labs. Recommend follow-up in 6 months for pulmonary sarcoidosis when she returns for other [place] evaluation, then could potentially be spaced back to 1 year interval. Recommend continuing to maintain good control of other factors effecting dyspnea, in particular watching weight for heart failure volume management and continuing to increase exercise tolerance with progressive pool workouts and eventually walking exercise. Patient will obtain eye exam locally for screening. Questions answered. Plan: Update sarcoidosis screening labs today Return in 6 months with CXR, PFTs, CBC, CMP, Vit D (25 and 1,25), ECG Recommend local eye exam (slit lamp, fundoscopy, and tonometry) yearly for sarcoidosis, note this can be combined with Plaquenil eye exam monitoring Consider repeat CT chest at next visit Results and recommendations to be communicated: by portal message. Total time 30 minutes. Patient case to be discussed with supervising solutions delivery consultant, Dr. Quintanilla. PATIENT EDUCATION Learning needs assessment was performed. No learning barriers were identified. Explained diagnosis and treatment plan. Patient expressed understanding and was able to teach back. EAR POWER REACTOR OPERATOR documented in this encounter Plan of Treatment Scheduled Orders Name Type Priority Associated Diagnoses Order Schedule DX Chest AP or PA and Lateral 2 Views Imaging RAD - Routine (most inpatients and all outpatients) Dyspnea On Exertion Sarcoidosis Pulmonary (HCC) Expected: 01/12/2024 (Approximate), Expires: 10/11/2024 Pulmonary Function Tests PFT Routine Dyspnea On Exertion Sarcoidosis Pulmonary (HCC) Expected: 01/12/2024 (Approximate), Expires: 10/11/2024 CBC with Differential, Blood Lab Routine Dyspnea On Exertion Sarcoidosis Pulmonary (HCC) Expected: 01/12/2024 (Approximate), Expires: 07/11/2024 Comprehensive Metabolic Panel Lab Routine Dyspnea On Exertion Sarcoidosis Pulmonary (HCC) Expected: 01/12/2024 (Approximate), Expires: 07/11/2024 25-Hydroxyvitamin D2 and D3 Lab Routine Dyspnea On Exertion Sarcoidosis Pulmonary (HCC) Expected: 01/12/2024 (Approximate), Expires: 10/11/2024 1,25-Dihydroxyvitamin D Lab Routine Dyspnea On Exertion Sarcoidosis Pulmonary (HCC) Expected: 01/12/2024 (Approximate), Expires: 07/11/2024 ECG 12 Lead ECG Routine Dyspnea On Exertion Sarcoidosis Pulmonary (HCC) Expected: 01/12/2024 (Approximate), Expires: 10/11/2024 Scheduled Referrals Name Type Priority Associated Diagnoses Orde r Schedule Pulmonary Medicine office visit (clinic) Outpatient Referral Routine Dyspnea On Exertion Sarcoidosis Pulmonary (HCC) Expected: 01/12/2024 (Approximate), Expires: 10/11/2024 documented as of this encounter Results * (ABNORMAL) Comprehensive Metabolic Panel (07/09/2023 2:54 PM NUCLEAR POWER REACTOR OPERATOR) Potassium, S 5.2 3.6 - 5.2 mmol/L 07/09/2023 4:08 PM NUCLEAR POWER REACTOR OPERATOR DTL Sodium, S 142 135 - 145 mmol/L 07/09/2023 4:08 PM NUCLEAR POWER REACTOR OPERATOR DTL Chloride, S 101 98 - 107 mmol/L 07/09/2023 4:08 PM NUCLEAR POWER REACTOR OPERATOR DTL Bicarbonate, S 27 22 - 29 mmol/L 07/09/2023 4:08 PM NUCLEAR POWER REACTOR OPERATOR DTL Anion Gap 14 7 - 15 07/09/2023 4:08 PM NUCLEAR POWER REACTOR OPERATOR DTL BUN (Blood Urea Nitrogen), S 70(H) 6 - 21 mg/dL 07/09/2023 4:08 PM NUCLEAR POWER REACTOR OPERATOR DTL Creatinine 2.00(H) 0.59 - 1.04 mg/dL 07/09/2023 4:08 PM NUCLEAR POWER REACTOR OPERATOR DTL Estimated GFR (eGFR) 25(L) >=60 mL/min/BS A 07/09/2023 4:08 PM NUCLEAR POWER REACTOR OPERATOR DTL Comment: Estimated GFR calculated using the 2020 CKD_EPI creatinine equation. Calcium, Total, S 9.2 8.8 - 10.2 mg/dL 07/09/2023 4:08 PM NUCLEAR POWER REACTOR OPERATOR DTL Glucose, S 108 70 - 140 mg/dL 07/09/2023 4:08 PM NUCLEAR POWER REACTOR OPERATOR DTL Protein, Total, S 7.3 6.3 - 7.9 g/dL 07/09/2023 4:08 PM NUCLEAR POWER REACTOR OPERATOR DTL Albumin, S 4.6 3.5 - 5.0 g/dL 07/09/2023 4:08 PM NUCLEAR POWER REACTOR OPERATOR DTL Aspartate Aminotransferase (AST), S 27 8 - 43 U/L 07/09/2023 4:08 PM NUCLEAR POWER REACTOR OPERATOR DTL Alkaline Phosphatase, S 210(H) 35 - 104 U/L 07/09/2023 4:08 PM NUCLEAR POWER REACTOR OPERATOR DTL Alanine Aminotransferase (ALT), S 26 7 - 45 U/L 07/09/2023 4:08 PM NUCLEAR POWER REACTOR OPERATOR DTL Bilirubin, Total, S 0.8 0.0 - 1.2 mg/dL 07/09/2023 4:08 PM NUCLEAR POWER REACTOR OPERATOR DTL Blood (Blood, Venous) 07/09/2023 2:54 PM NUCLEAR POWER REACTOR OPERATOR 07/09/2023 3:19 PM NUCLEAR POWER REACTOR OPERATOR Eloy Cabrera M.D. LAB BLOOD ADD-ON [address] [address] DTL [facility] [address] [place] [address] * (ABNORMAL) CBC without Differential (07/09/2023 2:54 PM NUCLEAR POWER REACTOR OPERATOR) Pathologist [facility] Hemoglobin 8.3(L) 11.6 - 15.0 g/dL 07/09/2023 3:15 PM NUCLEAR POWER REACTOR OPERATOR DTL Hematocrit 26.3(L) 35.5 - 44.9 % 07/09/2023 3:15 PM NUCLEAR POWER REACTOR OPERATOR DTL Erythrocytes 2.74(L) 3.92 - 5.13 x10(12)/L 07/09/2023 3:15 PM NUCLEAR POWER REACTOR OPERATOR DTL MCV 96.0 78.2 - 97.9 fL 07/09/2023 3:15 PM NUCLEAR POWER REACTOR OPERATOR DTL RBC Distrib Width 18.0(H) 12.2 - 16.1 % 07/09/2023 3:15 PM NUCLEAR POWER REACTOR OPERATOR DTL Platelet Count 267 157 - 371 x10(9)/L 07/09/2023 3:15 PM NUCLEAR POWER REACTOR OPERATOR DTL Leukocytes 6.8 3.4 - 9.6 x10(9)/L 07/09/2023 3:15 PM NUCLEAR POWER REACTOR OPERATOR DTL Blood (Blood, Venous) 07/09/2023 2:54 PM NUCLEAR POWER REACTOR OPERATOR 07/09/2023 3:07 PM NUCLEAR POWER REACTOR OPERATOR Eloy Cabrera M.D. LAB BLOOD ADD-ON [facility] [address] [place], [place] [address] [address] [place] [address] * 25-Hydroxyvitamin D2 and D3 (07/09/2023 2:53 PM NUCLEAR POWER REACTOR OPERATOR) Pathologist [facility] 25-Hydroxy D2 5.5 ng/mL 07/13/2023 11:08 AM NUCLEAR POWER REACTOR OPERATOR [facility] 25-Hydroxy D3 51 ng/mL 07/13/2023 11:08 AM NUCLEAR POWER REACTOR OPERATOR [facility] 25-Hydroxy D Total 57 ng/mL 2023 11:08 AM NUCLEAR POWER REACTOR OPERATOR [facility] Comment: Interpretation: 51-80 ng/mL (increased risk of [...] Administration. Blood (Blood, Venous) 07/09/2023 2:53 PM NUCLEAR POWER REACTOR OPERATOR 07/12/2023 7:23 AM NUCLEAR POWER REACTOR OPERATOR Eloy Cabrera M.D. LAB BLOOD ADD-ON Performing Organization Address [facility] Co de Phone Number [facility] [address] [place] [address] [facility] [address] [place] [address] [place] [address] * 1,25-Dihydroxyvitamin D (07/09/2023 2:53 PM NUCLEAR POWER REACTOR OPERATOR) [facility] 1, 25 DIHYDROXYVITAMIN D, S 56 18 - 78 pg/mL 07/13/2023 11:56 PM NUCLEAR POWER REACTOR OPERATOR [facility] Comment: ----ADDITIONAL INFORMATION---- This test was developed and its performance characteristics determined by [facility] in a manner consistent with CLIA requirements. This test has not been cleared or approved by the U.S. Food and Drug Administration. Blood (Blood, Venous) 07/09/2023 2:53 PM NUCLEAR POWER REACTOR OPERATOR 07/12/2023 7:18 AM NUCLEAR POWER REACTOR OPERATOR Eloy Cabrera M.D. LAB BLOOD ADD-ON Performing Organization Address City/[facility]/ZIP Co de Phone Number [facility] [address] [place] [address] [facility] [address] [place] [address] [place] [phone] documented in this encounter Visit Diagnoses Diagnosis Sarcoidosis Pulmonary (HCC)- Primary Dyspnea On Exertion Acute On Chronic Diastolic (Congestive) Heart Failure (HCC) documented in this encounter Additional Health Concerns Assessment Noted Time PHQ-9 Depression Total Score: 10 022 2:00 PM CDT documented as of this encounter Care Teams Cartridge Assembler Relationship Specialty Start Date End Date Elsewhere, Pcp PCP - General Internal Medicine 04/08/22 documented as of this encounter
--- OUTSIDE RECORDS SUMMARY | 2023-08-17 17:07 | XMS_ITS | Encounter Summary ---
Author Name Unknown Organization [facility] Address [address] [place] [address] Care Team Providers Care Laboratory Mechanical Technician Name Role Phone Elsewhere, Pcp Primary Care Provider Unavailabl e Reason for Visit * Reason Comments Med Refill Encounter Details Date Type Department Care Team (Late st Contact Info) Description 06/08/2023 Refill Division of Rheumatology in [place], [place] [address] [place] [phone] Rosa Bolton, DIPAK, C.N.P., M.S. [address] [place] [phone] Med Refill Social History Tobacco Use Types Packs/Day Years Used Date Smoking Tobacco: Former Cigarettes 1 5 0 05/10/1964 - 05/10/1969 Passive Smoke Exposure: Never Smokeless Tobacco: Never Alcohol Use Standard Drinks/Week Comments Not Currently 0 (1 standard drink = 0.6 oz pure [...] often do you attend chur ch or yarsanism services? More than 4 times per year 03/27/2022 Do you belong to any clubs o r organizations such as yarsani groups, unions, fraternal or athletic groups, or [...] Answer Date Recorded PHQ-2 Score 3 09/24/2021 [facility] of Occupat ional Health - Occupational Stress [...] place to sleep or slept in a penitentiary (including now)? No 03/27/2022 Depression Answer Date [...] encounter Miscellaneous Notes * Telephone Encounter - Jean Paul Ramirez R.N. - 06/11/2023 10:56 AM TRAINING PROFESSIONAL Refused, see 05/12/23 communication for details. NING PROFESSIONAL documented in this encounter Plan of Treatment Not on file documented as of this encounter Visit Diagnoses Diagnosis Arthritis Rheumatoid (HCC) documented in this encounter Additional Health Concerns Assessment Noted Time PHQ-9 Depression Total Score: 10 022 2:00 PM CDT documented as of this encounter Care Teams Laboratory Mechanical Technician Relationship Specialty Start Date End Date Elsewhere, Pcp PCP - General Internal Medicine 04/08/22 documented as of this encounter
--- OUTSIDE RECORDS SUMMARY | 2023-08-17 17:07 | XMS_ITS | Encounter Summary ---
Author Name Unknown Organization [facility] Address [address] [place] [id number] Care Team Providers Care Heater Engineer Helper Name Role Phone Elsewhere, Pcp Primary Care Provider Unavailabl e Reason for Referral * Outpatient (Routine) - Closed Specialty Diagnoses / Procedures Referred By Mignon garcia Referred To Contact Diagnoses Chronic Diastolic (Congestive) Heart Failure (HCC) Procedures Six Minute Walk Emi Wilson APRN, C.N.P., M.S., M.S.N. [address] [place] [phone] [facility] Referral ID Status Reason Start Date Expiration Date Visits Re quested Visits Authorized [id number] Closed 10/22/2022 10/22/2023 1 1 CELL REPAIRER Reason for Visit * Outpatient (Routine) - Closed Specialty Diagnoses / Procedures Referred By Mignon garcia Referred To Contact Diagnoses Chronic Diastolic (Congestive) Heart Failure (HCC) Procedures Six Minute Walk Emi Wilson APRN, C.N.P., M.S., M.S.N. [address] [place] [phone] [facility] Referral ID Status Reason Start Date Expiration Date Visits Re quested Visits Authorized [id number] Closed 10/22/2022 10/22/2023 1 1 Encounter Details Date Type Department Care Team (Latest Contact Info) Description 06/21/2023 12:40 PM FUEL CELL REPAIRER - 06/21/2023 1:56 PM FUEL CELL REPAIRER Hospital Encounter Department of Cardiac Rehabilitation in [place], [place] [address] [place] [address] Emi Wilson APRN, C.N.P., M.S., M.S.N. [address] [place] [address] Chronic Diastolic (Congestive) Heart Failure (HCC) Discharge [...] week 03/27/2022 How often do you attend [facility] or faith services? More than 4 times per year 03/27/2022 Do you belong to any clubs o r organizations such as gnosticist groups, unions, fraternal or athletic groups, or [...] Answer Date Recorded PHQ-2 Score 3 09/24/2021 [facility] - Occupational Stress Questionnaire Answer Date Recorded [...] by mouth daily. Will check dosage 0 iron,carbonyl-vitamin C (VITRON-C) 65 mg iron- [address] tablet Take 1 tablet by mouth daily. 0 03/24/2017 levothyroxine (SYNTHROID, LEVOTHROID) 137 mcg tablet Take [...] or chew. 180 tablet 3 10/22/2022 10/22/2023 liemuyfuhhvf-oweh-ZG-C a-minerals (THERAPEUTIC-M) 400 mcg (folic acid) per [...] take very often 8 g 3 11/05/2022 hydroxychloroquine (PLAQUENIL) 200 mg tabletIndications:Arth ritis Rheumatoid (HCC) Take 2 tablets (400 mg total) by mouth every morning. Updated eye exam needed on file 180 tablet 0 05/12/2023 07/06/2023 leflunomide (ARAVA) 10 mg tabletIndications:Arth ritis Rheumatoid (HCC) TAKE 1 TABLET EVERY DAY ON WEDNESDAY THROUGH WEDNESDAY DIRECTED (NO MEDICATION ON WEDNESDAY OR WEDNESDAY) 20 tablet 2 04/30/2023 07/06/2023 documented as of this encounter Procedure Notes * Rey Egan CRAT - 06/21/2023 1:00 PM CSTAssociated Order(s): Six Minute Walk Pre-Procedure Diagnose(s): Chronic Diastolic (Congestive) Heart Failure (HCC) Post-Procedure Diagnose(s): Chronic Diastolic (Congestive) Heart Failure (HCC) Six Minute Walk Performed by: Rey Egan CRAT Authorized by: Emi Wilson APRN, C.N.P., M.S., M.S.N. Were medications taken in the last 24 hours?: yes PRE WALK Assistive Device: 4 Wheel Walker 6 Min Walk Distance Type: Track Height (cm): 160 Weight (kg): 69 BMI: 27 Resting Heart Rate: 70 Heart Rate Source: Apical Pulse Resting BP: 116/66 BP Cuff Arm: Left BP Cuff Size: RegularSupplemental Oxygen used: Supplemental Oxygen Not Used Resting SpO2: 96 SpO2 Site: Finger Angina Scale: 0 - No Angina Stacey Dyspnea: 2 - Slight Stacey Fatigue: 3 - Moderate POST WALK Heart Rate: 106 Heart Rate Source: Apical Pulse SpO2: 97 BP: 138/66 BP Cuff Side: Left Angina Scale: 0 - No Angina Stacey Dyspnea: 4 - Somewhat Severe Stacey Fatigue: 4 - Somewhat Severe Time of Test: 13:00 FUEL CELL REPAIRER Total Distance Walked (Feet): 790 Total Distance Walked (Meters): 240.79 Total # of Times Stopped: 0 Time Stopped (Seconds): 0 Time Walked (Seconds): 360 CALCULATIONS Estimated MPH: 1.5 Estimated METs: 2.15 % of Predicted Distance: 61.15 Interpretation: Six minute walk was reviewed. I agree with the reported results. CELL REPAIRER documented in this encounter Plan of Treatment Not on file documented as of this encounter Procedures Procedure Name Priority Date/Time Associated Diagnosis Comments 6 MINUTE WALK Routine 06/21/2023 1:00 PM FUEL CELL REPAIRER Chronic Diastolic (Congestive) Heart Failure (HCC) documented in this encounter Results * 6 MINUTE WALK (06/21/2023 1:00 PM FUEL CELL REPAIRER) Narrative Rose Marie Mascorro APRN, C.N.P., M.S.N. - 06/21/2023 1:00 PM FUEL CELL REPAIRER Rose Marie Mascorro APRN, C.N.P., M.S.N. ? [...] - Somewhat Severe Time of Test: ??13:00 FUEL CELL REPAIRER Total Distance Walked (Feet): ??790 Total Distance Walked (Meters): ??240.79 Total # of Times Stopped: ??0 Time Stopped (Seconds): ??0 Time Walked (Seconds): ??360 CALCULATIONS Estimated MPH: ??1.5 Estimated METs: ??2.15 % of Predicted Distance: ??61.15 Emi Georges APRN, C.N.P., M.S ., M.S.N. CV STRESS PROCEDURES documented in this encounter Visit Diagnoses Diagnosis Chronic Diastolic (Congestive) Heart Failure (HCC) documented in this encounter Additional Health Concerns Assessment Noted Time PHQ-9 Depression Total Score: 10 09/24/ 022 2:00 PM CDT documented as of this encounter Care Teams Heater Engineer Helper Relationship Specialty Start Date End Date Elsewhere, Pcp PCP - General Internal Medicine 04/08/22 documented as of this encounter
--- OUTSIDE RECORDS SUMMARY | 2023-08-17 17:07 | XMS_ITS | Encounter Summary ---
Author Name Unknown Organization [facility] Address [address] [place] [address] Care Team Providers Care Family Law Legal Assistant Name Role Phone Elsewhere, Pcp Primary Care Provider Unavailabl e Reason for Visit * Reason Onset Date Comments Med Question 05/12/2023 Encounter Details Date Type Department Care Team (Late st Contact Info) Description 05/12/2023 Clinical Communication Division of Rheumatology in [place], [place] [address] [place] [phone] Rosa Bolton, DIPAK, C.N.P., M.S. [address] [place] [phone] Med Question Social History Tobacco Use Types Packs/Day Years [...] often do you attend chur ch or caodaism services? More than 4 times per year 03/27/2022 Do you belong to any clubs o r organizations such as anglican groups, unions, fraternal or athletic groups, or [...] Answer Date Recorded PHQ-2 Score 3 09/24/2021 [facility] - [...] as of this encounter Miscellaneous Notes * Addendum Note - Noel Davidson, R.N. - 05/12/2023 4:58 PM CSTAddended by: NOEL DAVIDSON on: 05/12/2023 04:58 PM Modules accepted: Orders COMMUNICATOR SUPERVISOR * Telephone Encounter - Noel Davidson R.N. - 05/12/2023 3:51 PM CST Left voice message to call back. Will also send POM to patient. ADDENDUM: Patient returned call. Stated she has been off Plaquenil as we would not refill the medication due to not having an updated eye exam. Advised patient we did send a 90-day supply on 03/25/23 to [facility], receipt confirmed on same date. Patient stated she was never contacted by [facility] that there was a prescription received/ready for delivery. Patient will contact [facility] regarding the Plaquenil. In the interim, would like the Plaquenil sent to [facility] in [place]. Resent. COMMUNICATOR SUPERVISOR documented in this encounter Plan of Treatment Not on file documented as of this encounter Visit Diagnoses Diagnosis Arthritis Rheumatoid (HCC) documented in this encounter Additional Health Concerns Assessment Noted Time PHQ-9 Depression Total Score: 10 022 2:00 PM CDT documented as of this encounter Care Teams Family Law Legal Assistant Relationship Specialty Start Date End Date Elsewhere, Pcp PCP - General Internal Medicine 04/08/22 documented as of this encounter
--- OUTSIDE RECORDS SUMMARY | 2023-08-17 17:07 | XMS_ITS | Encounter Summary ---
Author Name Unknown Organization [facility] Address [address] [place] [id number] Care Team Providers Care Finance Advisor Name Role Phone Elsewhere, Pcp Primary Care Provider Unavailabl e Reason for Referral * Outpatient (Routine) - Closed Specialty Diagnoses / Procedures Referred By Contac t Referred To Contact Diagnoses Replacement Mitral Valve Tissue Infarction Spleen Procedures Echo Transesophageal (DAYNE) Emi Wilson APRN, C.N.P., M.S., M.S.N. [address] [place] [phone] [facility] Referral ID Status Reason Start Date Expiration Date Visits Re quested Visits Authorized [id number] Closed 06/30/2023 06/29/2024 1 1 NCILING CLERK Reason for Visit * Outpatient (Routine) - Closed Specialty Diagnoses / Procedures Referred By Contac t Referred To Contact Diagnoses Replacement Mitral Valve Tissue Infarction Spleen Procedures Echo Transesophageal (DAYNE) Emi Wilson APRN, C.N.P., M.S., M.S.N. [address] [place] [phone] [facility] Referral ID Status Reason Start Date Expiration Date Visits Re quested Visits Authorized [id number] Closed 06/30/2023 06/29/2024 1 1 Encounter Details Date Type Department Care Team (Latest Contact Info) Description 07/02/2023 8:19 AM RECONCILING CLERK - 07/02/2023 11:59 PM RECONCILING CLERK Hospital Encounter Department of Cardiovascular Diseases in [place], [place] [address] [place] [phone] Emi Wilson APRN, C.N.P., M.S., M.S.N. [address] [place] [address] Replacement Mitral Valve Tissue; Infarction Spleen Discharge Disposition: Home or Self Care Social [...] week 03/27/2022 How often do you attend [facility] or roman catholic services? More than 4 times per year 03/27/2022 Do you belong to any clubs o r organizations such as cheondoism groups, unions, fraternal or athletic groups, or [...] Answer Date Recorded PHQ-2 Score 3 09/24/2021 [facility] Occupational Stress Questionnaire Answer Date [...] place to sleep or slept in a alf (including now)? No 03/27/2022 Depression Answer Date [...] Sign Reading Time Taken Comments Blood Pressure 114/74 07/02/2023 10:41 AM RECONCILING CLERK Pulse 74 07/02/2023 10:39 AM RECONCILING CLERK Temperature - - Respiratory Rate 20 07/02/2023 10:39 AM RECONCILING CLERK Oxygen Saturation 93% 07/02/2023 10:39 AM RECONCILING CLERK Inhaled Oxygen Concentration - - Weight - - Height - - Body Mass Index - - documented in this encounter Medications at Time of Discharge [...] DME Order 1 each 0 09/14/2022 epoetin ut (EPOGEN,PROCRIT) 10,000 Unit/mL injection Inject under the [...] or chew. 180 tablet 3 10/22/2022 10/22/2023 rygzkdgzwvnu-wlrf-ZU-C a-minerals (THERAPEUTIC-M) 400 mcg (folic acid) per [...] 04/30/2023 07/06/2023 documented as of this encounter Plan of Treatment Not on file documented as of this encounter Procedures Procedure Name Priority Date/Time Associated Diagnosis Comments (DAYNE) 2D WITH COLOR, LIMITED DOPPLER AND CONTRAST Routine 07/02/2023 10:21 AM RECONCILING CLERK Replacement Mitral Valve Tissue Infarction Spleen documented in this encounter Results * (DAYNE) 2D WITH COLOR, LIMITED DOPPLER AND CONTRAST (07/02/2023 10:21 AM RECONCILING CLERK) Ejection Fraction 50 MC CV EIMS Mid-Ascending Aorta 39 MC CV EIMS MV mean gradient 5 MC CV EIMS Anatomical Region Laterality Modality Echocardiography 07/02/2023 8:21 AM RECONCILING CLERK Impressions 07/02/2023 11:11 AM RECONCILING CLERK PRE-SEDATION ASSESSMENT & CONSENT (performed immediately prior to the start of the procedure): The goals, risks and alternatives to moderate sedation and the transesophageal echo were explained to the patient, questions were answered and consent was given to proceed. The physician reviewed the patient's history, medication list, allergies, and review of systems, and the findings as documented in the muffler mechanic and also performed a pertinent examination including [...] performed at the request of the primary customer service analyst. Adult probe inserted without difficulty. LEFT VENTRICLE:Normal [...] Agitated saline injection(s) performed during sedation. No bsqoz-bt-wagv shunt at atrial level at rest or [...] Sedation Narrator or other pertinent record in [facility] for additional procedure and sedation information. Physician signature for procedural medications and patient discharge when DC criteria met. For the complete report, see the Order-Level Documents. Narrative 07/02/2023 11:11 AM RECONCILING CLERK For the complete report, see the Order-Level Documents. Hemodynamics Heart Rate: 61 BPM Blood Pressure: 121 / 72 mmHg ECG: Atrial fibrillation Final Impressions 1. Transesophageal echocardiogram performed at the request of the primary customer service analyst. 2. Status post 29mm [facility] Epic [...] intracardiac mass or thrombus identified. 10. No pgagk-ji-azdx shunt at atrial level at rest or [...] performed at the request of the primaryservice sap solution manager consultant. 2. Status post 29mm [facility] [...] intracardiac mass or thrombus identified. 10. No mhpaz-ng-fnnr shunt at atrial level at rest or [...] and the findings as documented in the muffler mechanic and alsoperformed a pertinent examination including a heart, airway and lungassessment. Mallampati Assessment: As documented in the RN pre-procedureassessment. Sedation plan: Transesophageal echo - moderate sedation. ASAphysical status score: Class III. The patient's identity and all neededequipment were confirmed and a final confirmatory pause was performed bythe team immediately prior to start. PROCEDURAL ECHO FINDINGS:Transesophageal echocardiogram performed at the request of the primaryservice sap solution manager consultant. Adult probe inserted without difficulty. LEFT [...] cava. Agitated saline injection(s) performed during sedation. Kyblnpg-kf-drmw shunt at atrial level at rest or [...] See Sedation Narrator orother pertinent record in [facility] for additional procedure and sedationinformation. Physician signature for procedural medications and patientdischarge when DC criteria met. For the complete report, see the Order-Level Documents. Emiteresita Georges APRN, C.N.P., M.Fred ., M.S.N. CV ECHO PROCEDURES documented in this encounter Visit Diagnoses Diagnosis Replacement Mitral Valve Tissue Infarction Spleen documented in this encounter Administered Medications Inactive Administered Medications - up to 3 most recent administrations Medication Order MAR Action Action Date Dose Rate Site fentaNYL injection (SUBLIMAZE) As needed, Starting on Wed07/02/23 at 0933, Intraprocedure (CV) Given 07/02/2023 10:13 AM RECONCILING CLERK 25 mcg Given 07/02/2023 9:38 AM RECONCILING CLERK 25 mcg Given 07/02/2023 9:33 AM RECONCILING CLERK 25 mcg lidocaine 5 % ointment 1 Application (XYLOCAINE) 1 Application, mouth/throat, As needed, mild pain or score 1-3 of 10, See protocol, Starting on Wed07/02/23 at 0821, For 2 doses, Intraprocedure - Diagnostic, Apply 1 inch on tongue blade. Place ointment side down in back of mouth, as far back as possible. Instruct patient to swallow any dissolved ointment. After 2-3 minutes, check gag reflex. May repeat once if gag reflex remains. Administer first dose within 10 minutes of expected physician arrival to procedure. MAX of 20 g of ointment/day Given 07/02/2023 9:23 AM RECONCILING CLERK 1 Application midazolam (PF) injection (VERSED) As needed, Starting on Wed07/02/23 at 0933, Intraprocedure (CV) Given 07/02/2023 10:07 AM RECONCILING CLERK 1 mg Given 07/02/2023 9:56 AM RECONCILING CLERK 1 mg Given 07/02/2023 9:38 AM RECONCILING CLERK 1 mg NaCl 0.9% bacteriostatic 0.9 % injection 40 mL 40 mL, intravenous, As needed, for agitated saline (bubble) studies, Starting on Wed07/02/23 at 0821, Intraprocedure - Diagnostic, See Margarita. Given 07/02/2023 10:16 AM RECONCILING CLERK 20 mL documented in this encounter Additional Health Concerns Assessment Noted Time PHQ-9 Depression Total Score: 10 022 2:00 PM CDT documented as of this encounter Care Teams Finance Advisor Relationship Specialty Start Date End Date Elsewhere, Pcp PCP - General Internal Medicine 04/08/22 documented as of this encounter
--- OUTSIDE RECORDS SUMMARY | 2023-08-17 17:07 | XMS_ITS | Encounter Summary ---
Author Name Unknown Organization [facility] Address [address] [place] [address] Care Team Providers Care News Videographer Name Role Phone Elsewhere, Pcp Primary Care Provider Unavailabl e Reason for Referral * Outpatient (Routine) - Closed Specialty Diagnoses / Procedures Referred By Mignon garcia Referred To Contact Cardiovascular Disease Emi Wilson APRN, C.N.P., M.S., M.S.N. [address] [place] [address] [facility] Referral ID Status Reason Start Date Expiration Date Visits Re quested Visits Authorized [id number] Closed 06/30/2023 12/29/2024 1 1 EL DRUM CUTTER * Outpatient (Routine) - Closed Specialty Diagnoses / Procedures Referred By Mignon garcia Referred To Contact Diagnoses Replacement Mitral Valve Tissue Infarction Spleen Procedures Echo Transesophageal (DAYNE) Emi Wilson APRN, C.N.P., M.S., M.S.N. [address] [place] [phone] [facility] Referral ID Status Reason Start Date Expiration Date Visits Re quested Visits Authorized [id number] Closed 06/30/2023 06/29/2024 1 1 EL DRUM CUTTER Reason for Visit * Outpatient (Routine) - Closed Specialty Diagnoses / Procedures Referred By Mignon garcia Referred To Contact Cardiovascular Disease Emi Wilson APRN, C.N.P., Christina, M.S.N. [address] [place] [phone] [facility] Referral ID Status Reason Start Date Expiration Date Visits Re quested Visits Authorized [id number] Closed 10/22/2022 10/21/2025 1 1 Encounter Details Date Type Department Care Team (Latest Contact Info) Description 06/22/2023 1:00 PM BARREL [facility] C[facility]TER Office Visit Department of Cardiovascular Medicine in [place], [place] [address] [place] [address] Emi Wilson APRN, C.NJordan, Christina, M.S.N. 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 More than 4 times per year 03/27/2022 Do you belong to any clubs o r organizations such as zoroastrianism groups, unions, fraternal or athletic groups, or [...] Answer Date Recorded PHQ-2 Score 3 09/24/2021 [facility] Occupat ional Health - [...] place to sleep or slept in a correction (including now)? No 03/27/2022 Depression Answer Date [...] Sign Reading Time Taken Comments Blood Pressure 115/71 06/22/2023 1:07 PM [facility]REL DR[employer] CUTTER Pulse 70 06/22/2023 1:07 PM BARREL DRUM CUTTER Temperature - - Respiratory Rate - - Oxygen Saturation - - Inhaled Oxygen Concentration - - Weight 69.3 kg (152 lb 10.7 oz) 06/22/2023 1:05 PM [employer]REL DRUM CUTTER Height 159.2 cm (5' 2.68) 06/22/2023 1:05 PM CS T Body Mass Index 27.32 06/22/2023 1:05 PM [employer] [employer] C[employer]TER documented in this encounter Progress Notes * Emi Wilson APRN, C.N.P., Christina, M.S.N. - 06/22/2023 1:00 PM [facility]REL DR[employer] C[facility]TER Heart Failure Established Note SUBJECTIVE REFERRING PROVIDER: Emi Wilson APRN, C.N.P., Christina, M.S.N. CHIEF COMPLAINT / REASON FOR VISIT Follow-up of heart failure with preserved ejection for HISTORY OF PRESENT ILLNESS Ms. Chen is a pleasant 77-year-old female with a history of hypertension, who presented to [facility] with a several-year history of dyspnea with [...] PET scan was negative for cardiac sarcoidosis. I last met with the patient on 10/22/2022. Patient was doing well i. Patient met with Pulmonary 11/05/2022; ground-glass nodularity had resolved. Nodules were stable, possibly related to presumed sarcoidosis, and her dyspnea continued to improve. Patient met with rheumatology in 11/12/2022. No changes were made to her rheumatologic medication regime. Patient was hospitalized April 21 through 2022 with sudden left upper quadrant and mid epigastric pain. 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 Patient last met with Nephrology on 06/01/2023. Heart failure was well compensated on 60 mg in the morning and 20 in the afternoon. Renal function stable. Continued on erythropoietin twice monthly. Hewas concerned about thromboembolic phenomenon suggesting she had failed apixaban. The patient presents alone. She has good and bad days. She had significant swelling and pain about her right ankle last week. It is nearly resolved now. She was able to walk throughout the clinic today with a walker which is a marked improvement. Working with a wellness trainer twice weekly and going to [facility] twice weekly. Fleeting chest discomfort, no palpitations. She will develop edema if she does not take the torsemide. She is requiring increase from 60 in the morning and 20 in the afternoon to 60 b.i.d. at least once weekly. Not sure if it corresponds to the one time weekly when they get restaurant food. Denies paroxysmal nocturnal dyspnea; chronically sleeps with head of bed up on CPAP. No dizziness, lightheadedness, syncopal episodes or falls. Advises she had not missed any anticoagulation doses before the splenic infarct. PAST MEDICAL/SURGICAL HISTORY 1. Heart failure with [...] the tricuspid valve 10/07/2021. 20. Splenic infarct despite chronic anticoagulation May 01 REVIEW OF SYSTEMS The following portions of the patient's history were reviewed and updated as appropriate: allergies, current medications, family history, medical history, social history and surgical history. OBJECTIVE Vitals: 06/22/23 1305 06/22/23 1307 BP: 128/70 115/71 BP Location: Left arm Left arm Patient Position: Sitting Standing Cuff Size: Regular Regular Pulse: 80 70 Weight: 69.3 kg Height: 159.2 cm Wt 69.3 kg Ht 159.2 cm Body mass index is 27.32 kg/m??. Body surface area is 1.75 meters squared. PHYSICAL EXAMINATION General: Pleasant female in no apparent acute distress Vessels: Jugular veins distended to the jaw at a 30 degree angle Lungs: Diminished throughout but clear without rales, rhonchi, or wheeze. Heart: Irregularly irregular rate and rhythm with normal S1 and S2. No S3, S4, thrill appreciated. RV lift. 3/6 systolic murmur heard at the left sternal border. Soft 2/6 diastolic murmur at the apex. Abdomen: Soft, nontender, without palpable or percussible hepatomegaly. Extremities: At least 1+ pretibial edema on the right, trace to 1+ on the left with bilateral compression on. ECHOCARDIOGRAM 1. Normal left ventricular chamber size. Calculated biplane ejection fraction 52% with beat to beatvariability in atrial fibrillation. Abnormal septal motion post-operative. No other focal regional wall motion abnormalities. 2. Mild- moderately enlarged right ventricular chamber size with moderately reduced systolic function. 3. Estimated right ventricular systolic pressure 55 mmHg (right atrial pressure of 15 mmHg). 4. Severe bi-atrial enlargement. 5. Status post [address] 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 6. Mean diastolic Doppler gradient 7-8 mm Hg (heart rate 78 BPM). Trivial mitral regurgitation. 7. 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 8. Tricuspid valve diastolic mean Doppler gradient 2 mmHg (heart rate 71 BPM).9. Moderate-severe tricuspid valve regurgitation. Systolic reversals present in the hepatic veins. 10. Tricuspid regurgitation ERO (PISA) 0.52 cm2 Regurgitant volume (PISA) 56 ml. 11. Mildly enlargedinferior vena cava size with reduced inspiratory collapse (<50%). 12. No pericardial effusion. 13. On side by side comparison with the previous echocardiogram, tricuspid regurgitation is worse andthe mean diastolic Doppler gradient across the mitral prosthesis is higher at a higher heat rate. Left ventricular systolic function is now borderline low. Right ventricle was not well visualized on the previous study making direct comparison difficult. ASSESSMENT / PLAN #1 Acute Diastolic (Congestive) Heart Failure (HCC) I encouraged the patient to take an extra 60 mg of torsemide this afternoon versus 20 mg. We jointly agreed will use 147 lbs. as her trigger weight to take 60 mg in the afternoon versus 20 mg. I discussed SGLT2 inhibitor with Dr. Allen Agarwal her remnant sorter. He is strongly discouraged utilizing SGLT2. #2 Replacement Mitral Valve Tissue Her gradient has doubled since last echocardiogram. I will discuss with valve. 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 Could be worse due to excessive volume. See above. #4 Chronic Kidney Disease Stage 4 Glomerular Filtration Rate 15-29 ([facility]) Creatinine up to 1.98 and stable. #5 Gout Uric acid is up to 11.1. The ankle pain last week is suspicious for a gout attack. Discussed with Nephrology. They agree 100 mg of allopurinol likely be helpful. #6 Infarction Spleen This is curious. She was fully anticoagulated denying any misses. Discussed with Dr. Agarwal. Willconsider vascular consult. #7 Hypertension Pulmonary (HCC) Pulmonary pressures stable at 55. Patient likely has a combination of group two and group three pulmonary hypertension. # 8. Atrial fibrillation Present on exam and EKG. She is appropriately anticoagulated on 5 mg of apixaban b.i.d. ADDENDUM: I reviewed the patient's history and increase bioprosthetic gradient with Dr. Marlen Sevilla valve specialist. Although the pulse was higher at 76 then 70 on the last echocardiogram when the gradient was read as 4 millimeters mercury, this coupled with the recent history of purported splenic infarct, is concerning. She first recommended that we get the outside records to confirm splenic infarct. If confirmed, patient will need transesophageal echocardiogram (is not candidate for CT due to poor renal function) to rule out clot on the mitral valve. Spoke with the patient by phone on 06/30/2023 with the above information. We were able to secure a transesophageal echocardiogram on July 02. She was advised see needs to be NPO after midnight. She should take her Eliquis and levothyroxine in the morning with a small sip of water. She can takethe rest of her morning pills after the transesophageal echocardiogram. I will see her in the afternoon to review results. Patient verbalized understanding of these recommendations. HEART FAILURE MEDICAL THERAPY: HERMAN/ARB/ARNi: None Beta-shawanda: Metoprolol Aldosterone antagonist: None SGLT2 inhibitor: Nephrology discouraged Diuretic: Torsemide Emi Georges APRN, C.N.P., M.S., M.S.N. 06/22/23 Total time spent 44+ minutes. CST documented in this encounter Plan of Treatment Scheduled Referrals Name Type Priority Associated Diagnoses Order Schedule Cardiovascular Disease office visit (clinic) Outpatient Referral Routine Expect ed: 07/02/2023, Expires: 09/27/2024 documented as of this encounter Results * (DAYNE) 2D WITH COLOR, LIMITED DOPPLER AND CONTRAST (07/02/2023 10:21 AM BARREL DRUM CUTTER) Ejection Fraction 50 MC CV EIMS Mid-Ascending Aorta 39 MC CV EIMS MV mean gradient 5 MC CV EIMS Anatomical Region Laterality Modality Echocardiography 07/02/2023 8:21 AM BARREL DRUM CUTTER Impressions 07/02/2023 11:11 AM [facility]REL DRUM CUTTER PRE-SEDATION ASSESSMENT & CONSENT (performed immediately prior to the start of the procedure): The goals, risks and alternatives to moderate sedation and the transesophageal echo were explained to the patient, questions were answered and consent was given to proceed. The physician reviewed the patient's history, medication list, allergies, and review of systems, and the findings as documented in the laborer prestressed concrete and also performed a pertinent examination including [...] performed at the request of the primary administrative services officer. Adult probe inserted without difficulty. LEFT VENTRICLE:Normal [...] Agitated saline injection(s) performed during sedation. No ijltd-ll-[id number] shunt at atrial level at rest or [...] Sedation Narrator or other pertinent record in [facility] for additional procedure and sedation information. Physician signature for procedural medications and patient discharge when DC criteria met. For the complete report, see the Order-Level Documents. Narrative 07/02/2023 11:11 AM BARREL DRUM CUTTER For the complete report, see the Order-Level Documents. Hemodynamics Heart Rate: 61 BPM Blood Pressure: 121 / 72 mmHg ECG: Atrial fibrillation Final Impressions 1. Transesophageal echocardiogram performed at the request of the primary administrative services officer. 2. Status post 29mm St. Jovani Epic [...] intracardiac mass or thrombus identified. 10. No ebjhy-qk-nwda shunt at atrial level at rest or [...] performed at the request of the primaryservice vendor management consultant. 2. Status post 29mm St. Jovani [...] intracardiac mass or thrombus identified. 10. No onvaf-jo-wvkn shunt at atrial level at rest or [...] and the findings as documented in the laborer prestressed concrete and alsoperformed a pertinent examination including a heart, airway and lungassessment. Mallampati Assessment: As documented in the RN pre-procedureassessment. Sedation plan: Transesophageal echo - moderate sedation. ASAphysical status score: Class III. The patient's identity and all neededequipment were confirmed and a final confirmatory pause was performed bythe team immediately prior to start. PROCEDURAL ECHO FINDINGS:Transesophageal echocardiogram performed at the request of the primaryservice vendor management consultant. Adult probe inserted without difficulty. LEFT [...] cava. Agitated saline injection(s) performed during sedation. Esgomhk-dp-fwsb shunt at atrial level at rest or [...] See Sedation Narrator orother pertinent record in [employer] for additional procedure and sedationinformation. Physician signature for procedural medications and patientdischarge when DC criteria met. For the complete report, see the Order-Level Documents. Emi Georges APRN C.N.P., M.S ., M.S.N. 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
--- OUTSIDE RECORDS SUMMARY | 2023-08-17 17:07 | XMS_ITS | Encounter Summary ---
Author Name Unknown Organization [facility] Address [address] [place] [id number] Care Team Providers Care Residency Coordinator Name Role Phone Elsewhere, Pcp Primary Care Provider Unavailabl e Encounter Details Date Type Department Care Team (Latest Contact Info) Description 06/21/2023 8:30 AM [employer] CONDITIONING MECHANIC - 06/21/2023 12:39 PM [facility] Hospital Encounter Department of Laboratory Medicine and Pathology, [facility] [place], [place] [address] [place] [address] Emi Wilson APRN, C.N.P., M.S., M.S.N. [address] [place] [phone] Chronic Diastolic (Congestive) Heart Failure (HCC); Arthritis [...] How often do you attend chur or yazdanism services? More than 4 times per year 03/27/2022 Do you belong to any clubs o r organizations such as mormon groups, unions, fraternal or athletic groups, or [...] Answer Date Recorded PHQ-2 Score 3 09/24/2021 [facility] of Occupat ional Health - Occupational Stress [...] or chew. 180 tablet 3 10/22/2022 10/22/2023 [id number] a-minerals (THERAPEUTIC-M) 400 mcg (folic acid) per [...] Procedure Name Priority Date/Time Associated Diagnosis Comments NT-PRO B-TYPE NATRIURETIC PEPTIDE (BNP), S Routine 06/21/2023 9:28 AM W[employer] UNIT AIR CONDITIONING MECHANIC Chronic Diastolic (Congestive) Heart Failure (HCC) SEDIMENTATION RATE, B Routine 06/21/2023 9:28 AM W[employer] UNIT AIR CONDITIONING MECHANIC Arthritis Rheumatoid (HCC) C-REACTIVE PROTEIN (CRP), S/P Routine 06/21/2023 9:28 AM W[employer] UNIT AIR CONDITIONING MECHANIC Arthritis Rheumatoid (HCC) URIC ACID, S/P Routine 06/21/2023 9:28 AM W[employer] UNIT AIR CONDITIONING MECHANIC Arthritis Rheumatoid (HCC) BUN (BLOOD UREA NITROGEN), S/P Routine 06/21/2023 9:28 AM [employer] UNIT [employer] CONDITIONING MECHANIC Chronic Diastolic (Congestive) Heart Failure (HCC) ASPARTATE AMINOTRANSFERASE (AST), S/P Routine 06/21/2023 9:28 AM W[employer] UN[employer] CONDITIONING MECHANIC Arthritis Rheumatoid (HCC) SODIUM, S/P Routine 06/21/2023 9:28 AM W[employer] UN[employer] CONDITIONING MECHANIC Chronic Diastolic (Congestive) Heart Failure (HCC) POTASSIUM, S/P Routine 06/21/2023 9:28 AM [employer] CONDITIONING MECHANIC Chronic Diastolic (Congestive) Heart Failure (HCC) CREATININE WITH EGFR, S/P Routine 06/21/2023 9:28 AM W[employer] UNIT [employer] CONDITIONING MECHANIC Chronic Diastolic (Congestive) Heart Failure (HCC) documented in this encounter Results * (ABNORMAL) Uric Acid (06/21/2023 9:28 AM WIND[employer] UNIT AIR CONDITIONING MECHANIC) Pathologist [facility] Uric Acid, S 11.1(H) 2.7 - 6.1 mg/dL 06/21/2023 11:07 AM W[employer] UNIT [employer] CONDITIONING MECHANIC DTL Blood (Blood, Venous) 06/21/2023 9:28 AM [employer] UN[employer] AIR CONDITIONING MECHANIC 06/21/2023 10:10 AM [employer] CONDITIONING MECHANIC Rosa Bolton APRN C.N.P., M.S. LAB BLOOD ADD-ON [facility] [address] [place] [address], [facility] [address] [place] [address] * AST (Aspartate Aminotransferase) (06/21/2023 9:28 AM WIND[employer] UNIT AIR CONDITIONING MECHANIC) Pathologist [facility] Aspartate Aminotransferase (AST), S 26 8 - 43 U/L 06/21/2023 11:07 AM W[employer] UNIT AIR CONDITIONING MECHANIC DTL Blood (Blood, Venous) 06/21/2023 9:28 AM [employer] UNIT AIR CONDITIONING MECHANIC 06/21/2023 10:10 AM [employer]IT [employer] CONDITIONING MECHANIC Tristian Thompson APRN.N.P., M.S. LAB BLOOD ADD-ON Performing Organization Address City/[facility]/ZIP Co de Phone Number [facility] [address] [place] [address] * (ABNORMAL) CRP (C-Reactive Protein) (06/21/2023 9:28 AM WIND[employer] UNIT AIR CONDITIONING MECHANIC) C-Reactive Protein (CRP), S 41.6(H) <5.0 mg/L 06/21/2023 11:07 AM [employer] UN[employer] AIR CONDITIONING MECHANIC DTL Blood (Blood, Venous) 06/21/2023 9:28 AM [employer] CONDITIONING MECHANIC 06/21/2023 10:10 AM [employer] CONDITIONING MECHANIC Tristian Thompson APRN.N.P., M.S. LAB BLOOD ADD-ON Performing Organization Address City/[facility] Co de Phone Number [facility] [address] [place] [place] [phone] [place] [address] 200 [place] [address] * (ABNORMAL) Sedimentation Rate (06/21/2023 9:28 AM W[employer] UNIT AIR CONDITIONING MECHANIC) Sedimentation Rate, B 30(H) 3 - 28 mm/h 06/21/2023 11:21 AM W[employer] UNIT AIR CONDITIONING MECHANIC DTL Blood (Blood, Venous) 06/21/2023 9:28 AM [employer] AIR CONDITIONING MECHANIC 06/21/2023 9:56 AM [employer] CONDITIONING MECHANIC Tristian Thompson APRN.N.P., M.S. LAB BLOOD ADD-ON Performing Organization Address City/[facility]/ZIP Co de Phone Number [facility] [address] [place] [address] * Sodium (06/21/2023 9:28 AM WINDOW UNIT AIR CONDITIONING MECHANIC) [facility] Sodium, S 135 135 - 145 mmol/L 06/21/2023 11:07 AM W[employer] UNIT AIR CONDITIONING MECHANIC DT Blood (Blood, Venous) 06/21/2023 9:28 AM [employer] AIR CONDITIONING MECHANIC 06/21/2023 10:10 AM [employer] CONDITIONING MECHANIC Tristian Tuttle APRN.NChel., M.S ., M.S.N. LAB BLOOD ADD-ON [facility] [address] [place] [address] * Potassium (06/21/2023 9:28 AM W[employer] UNIT AIR CONDITIONING MECHANIC) [facility] Potassium, S 4.3 3.6 - 5.2 mmol/L 06/21/2023 11:07 AM W[employer] UNIT [employer] CONDITIONING MECHANIC DT Blood (Blood, Venous) 06/21/2023 9:28 AM [employer]IT [employer] CONDITIONING MECHANIC 06/21/2023 10:10 AM [employer] UN[employer] CONDITIONING MECHANIC Tristian Tuttle APRN.N.Ave., M.S ., M.S.N. LAB BLOOD ADD-ON [facility] [address] [place], [place] [phone] [place] [address] [address] [place] [address] * (ABNORMAL) NT-Pro B-Type Natriuretic Peptide (BNP) (06/21/2023 9:28 AM WIND[employer] UNIT AIR CONDITIONING MECHANIC) [facility] NT-Pro BNP 9686(H) <=540 pg/mL 06/21/2023 11:07 AM W[employer] UNIT [employer] CONDITIONING MECHANIC DT Comment: NT-proBNP values less than 300 pg/mL [...] failure. Blood (Blood, Venous) 06/21/2023 9:28 AM [employer] UNIT [employer] CONDITIONING MECHANIC 06/21/2023 10:10 AM [employer] CONDITIONING MECHANIC Emi Georges APRN, C.N.P., M.S ., M.S.N. LAB BLOOD ADD-ON [id number] [place] [address] * (ABNORMAL) Creatinine with Estimated GFR (06/21/2023 9:28 AM W[employer] UNIT AIR CONDITIONING MECHANIC) Creatinine 1.98(H) 0.59 - 1.04 mg/dL 06/21/2023 11:07 AM W[employer] UNIT [employer] CONDITIONING MECHANIC DTL Estimated GFR (eGFR) 25(L) >=60 mL/min/BSA 06/21/2023 11:07 AM W[employer] UNIT [employer] CONDITIONING MECHANIC DTL Comment: Estimated GFR calculated using the 2020 CKD_EPI creatinine equation. Blood (Blood, Venous) 06/21/2023 9:28 AM W[employer] UNIT AIR CONDITIONING MECHANIC 06/21/2023 10:10 AM [employer] UNIT [employer] CONDITIONING MECHANIC Tristian Tuttle APRN.NChel., M.S ., M.S.N. LAB BLOOD ADD-ON [facility] [address] [place], [place] [phone] [place] [address] * (ABNORMAL) BUN (Blood Urea Nitrogen) (06/21/2023 9:28 AM WINDOW UNIT AIR CONDITIONING MECHANIC) BUN (Blood Urea Nitrogen), S 51(H) 6 - 21 mg/dL 06/21/2023 11:07 AM W[employer] UNIT AIR CONDITIONING MECHANIC DTL Blood (Blood, Venous) 06/21/2023 9:28 AM [employer]IT [employer] CONDITIONING MECHANIC 06/21/2023 10:10 AM [employer] CONDITIONING MECHANIC Emi Georges APRN, C.N.P., M.S ., M.S.N. LAB BLOOD ADD-ON [facility] [address] [place] [address], [facility] [address] [place] [address] documented in this encounter Visit Diagnoses Diagnosis Chronic Diastolic (Congestive) Heart Failure (HCC) Arthritis Rheumatoid (HCC) documented in this encounter Additional Health Concerns Assessment Noted Time PHQ-9 Depression Total Score: 10 09/24/ 022 2:00 PM CDT documented as of this encounter Care Teams Residency Coordinator Relationship Specialty Start Date End Date Elsewhere, Pcp PCP - General Internal Medicine 04/08/22 documented as of this encounter
--- OUTSIDE RECORDS SUMMARY | 2023-08-17 17:07 | XMS_ITS | Encounter Summary ---
Author Name Unknown Organization [facility] Address [address] [place] [address] Care Team Providers Care Director Of Event Management Name Role Phone Elsewhere, Pcp Primary Care Provider Unavailabl e Reason for Visit * Reason Onset Date Comments Pre-visit Intake 06/18/2023 Encounter Details Date Type Department Care Team (Latest Contact Info) Description 06/18/2023 11:15 AM WINE CELLAR WORKER Clinical Communication Virtual Review in [place], [place] [address] [place], [place] [address] Pre-visit Intake Social History Tobacco Use Types Packs/Day Years [...] How often do you attend chur or adventist services? More than 4 times per year 03/27/2022 Do you belong to any clubs o r organizations such as anabaptist groups, unions, fraternal or athletic groups, or [...] Answer Date Recorded PHQ-2 Score 3 09/24/2021 [facility] - Occupational [...] as of this encounter Care Teams Director Of Event Management Relationship Specialty Start Date End Date Elsewhere, Pcp PCP - General Internal Medicine 04/08/22 documented as of this encounter
--- OUTSIDE RECORDS SUMMARY | 2023-08-17 17:07 | XMS_ITS | Encounter Summary ---
Author Name Unknown Organization [facility] Address [address] [place] [id number] Care Team Providers Care Lithographic Plate Maker Name Role Phone Elsewhere, Pcp Primary Care Provider Unavailabl e Reason for Referral * Outpatient (Routine) - Closed Specialty Diagnoses / Procedures Referred By Mignon garcia Referred To Contact Diagnoses Chronic Diastolic (Congestive) Heart Failure (HCC) Procedures Echo Transthoracic (TTE) Emi Wilson APRN, C.N.P., M.S., M.S.N. [address] [place] [phone] [facility] Referral ID Status Reason Start Date Expiration Date Visits Re quested Visits Authorized [id number] Closed 10/22/2022 10/22/2023 1 1 CAL CSR Reason for Visit * Outpatient (Routine) - Closed Specialty Diagnoses / Procedures Referred By Mignon garcia Referred To Contact Diagnoses Chronic Diastolic (Congestive) Heart Failure (HCC) Procedures Echo Transthoracic (TTE) Emi Wilson APRN, C.N.P., M.S., M.S.N. [address] [place] [phone] [facility] Referral ID Status Reason Start Date Expiration Date Visits Re quested Visits Authorized [id number] Closed 10/22/2022 10/22/2023 1 1 Encounter Details Date Type Department Care Team (Latest Contact Info) Description 06/21/2023 1:57 PM MEDICAL CSR - 06/21/2023 11:59 PM MEDICAL CSR Hospital Encounter Department of Cardiovascular Diseases in [place], [place] [address] [place] [address] Emi Wilson APRN, C.N.P., M.S., M.S.N. [address] [place] [address] Chronic Diastolic (Congestive) Heart Failure (HCC) Discharge [...] week 03/27/2022 [facility] attend [facility] services? More than 4 times per year 03/27/2022 Do you belong to any clubs o r organizations such as advent groups, unions, fraternal or athletic groups, or [...] Answer Date Recorded PHQ-2 Score 3 09/24/2021 [facility] - Occupational Stress Questionnaire Answer Date Recorded [...] or chew. 180 tablet 3 10/22/2022 10/22/2023 srkxjneisxxb-[id number]-C a-minerals (THERAPEUTIC-M) 400 mcg (folic acid) per [...] Procedure Name Priority Date/Time Associated Diagnosis Comments (TTE) 2D LIMITED WITH COLOR AND DOPPLER Routine 06/21/2023 4:41 PM MEDICAL CSR Chronic Diastolic (Congestive) Heart Failure (HCC) documented in this encounter Results * (TTE) 2D LIMITED WITH COLOR AND DOPPLER (06/21/2023 4:41 PM MEDICAL CSR) Ejection Fraction 52 MC CV EIMS Mid-Ascending [...] Region Laterality Modality Echocardiography 06/21/2023 2:56 PM MEDICAL CSR Impressions 06/21/2023 5:15 PM MEDICAL CSR Hemoglobin 9.9 g/dL (22-OCT-2022). LEFT VENTRICLE:Normal left [...] the Order-Level Documents. Narrative 06/21/2023 5:15 PM MEDICAL CSR For the complete report, see the Order-Level [...] documented as of this encounter Care Teams Lithographic Plate Maker Relationship Specialty Start Date End Date Elsewhere, Pcp PCP - General Internal Medicine 04/08/22 documented as of this encounter
--- OUTSIDE RECORDS SUMMARY | 2023-08-17 17:07 | XMS_ITS | Encounter Summary ---
Author Name Unknown Organization [facility] Address [address] [place] [address] Care Team Providers Care Director Of Residence Life Name Role Phone Elsewhere, Pcp Primary Care Provider Unavailabl e Reason for Visit * Appointment Request (Routine) - Closed Specialty Diagnoses / Procedures Referred By Mignon garcia Referred To Contact Nephrology and Hypertension Referral ID Status Reason Start Date Expiration Date Visits Re quested Visits Authorized [id number] Closed 04/16/2023 04/15/2024 1 1 Encounter Details Date Type Department Care Team (Latest Contact Info) Description 06/01/2023 4:00 PM ATTENDANT SALES External Outreach Division of Nephrology and Hypertension in [place], [place] [address] [place] [address] Luis Agarwal Jr., D.O. [address] [place] [address] Hypertension And Chronic Kidney Disease Stage 4 (HCC) (Primary Dx); Chronic Kidney Disease Stage 4 Glomerular Filtration Rate 15-29 (HCC); Pulmonary Hypertension Due To Left Heart Disease (HCC); Acute On Chronic Diastolic (Congestive) Heart Failure (HCC); Atrial Fibrillation Unspecified (HCC); Arthritis Rheumatoid (HCC); Apnea Sleep Obstructive; Anemia Of Chronic Renal Disease; Chronic Obstructive Pulmonary Disease (HCC); Hyperparathyroidism Renal Secondary (HCC); Debility Social History Tobacco Use Types Packs/Day Years [...] week 03/27/2022 How often do you attend [facility] or restorationism services? More than 4 times per year 03/27/2022 Do you belong to any clubs o r organizations such as yarsanism groups, unions, fraternal or athletic groups, or [...] Answer Date Recorded PHQ-2 Score 3 09/24/2021 [facility] - Occupational Stress [...] Sign Reading Time Taken Comments Blood Pressure 108/62 06/01/2023 4:25 PM ATTENDANT SALES Pulse 72 06/01/2023 4:25 PM ATTENDANT SALES Temperature - - Respiratory Rate - - Oxygen Saturation - - Inhaled Oxygen Concentration - - Weight 68.9 kg (151 lb 14.4 oz) 06/01/2023 4:25 PM ATTENDANT SALES Height 160 cm (5' 2.99) 06/01/2023 4:25 PM ATTENDANT SALES Body Mass Index 26.91 06/01/2023 4:25 PM ATTENDANT SALES documented in this encounter Progress Notes * Luis Agarwal Jr., D.O. - 06/01/2023 4:00 PM CST Referring Provider: ELSEWHERE, PCP SUBJECTIVE REASON FOR VISIT [place] [facility] Follow-up regards CKD, heart failure with reduced ejection fraction, COPD, oxygen requiring, anemiaof CKD, hypertension HISTORY OF PRESENT ILLNESS Ms. Chen is a 78 y.o. female who presents with a difficult and complex set of circumstances including rheumatoid arthritis, Crohn's disease, CKD stage 4, heart failure with reduced ejection fraction and oxygen requiring COPD. Since our last visit she required hospitalization from the through the 23 of April when she suddenly developed left upper quadrant and midepigastric pain. On CT scan here in [place] she was discovered to have a splenic infarct. She is on oral anticoagulation for her atrial fibrillation. The pain slowly subsided over the period of approximately 2-3 weeks. She is pain-free now. She is doing well from a compensation perspective from her heart failure, she has not required extra doses of diuretics recently. She is currently on torsemide 20 mg 3 tablets in the morning and 1 inthe afternoon, she is absolutely avoiding sodium, his wearing lower extremity compressive garments.She is able to sleep well, her appetite is excellent. Her renal function has remained gratifyingly stable, she is keeping her potassium steady as well. Note that [place] [address] units subQ twice monthly, and we have been keeping her hemoglobin generally at roughly 10 grams/deciliter. However her insurancehad demanded that she not receive the injection if her hemoglobin was 10 or above. I have rewrittenthe orders-see below. No recent falls, she is able to walk now, using a walker and sometimes holding onto the wheelchair for support. Past Medical History: Diagnosis Date Arthritis Rheumatoid (HCC) Atrial Fibrillation Unspecified (HCC) Cataract Colitis Ulcerative (HCC) Depressive Disorder Heart Failure NOS Hypertension NOS Pneumonia Sleep Apnea Current Outpatient Medications: acetaminophen (TYLENOL) 500 mg tablet, Take 2 tablets (1,000 mg total) by mouth every 6 (six) hoursas needed for mild pain or score 1-3 of 10, moderate pain or score 4-6 of 10, headaches or fever., Disp: , Rfl: apixaban (ELIQUIS) 5 mg tablet, Take 1 tablet (5 mg total) by mouth 2 (two) times a day., Disp: 180tablet, Rfl: 3 buPROPion XL (WELLBUTRIN XL) 300 mg 24 hr tablet, Take 1 tablet by mouth daily., Disp: , Rfl: citalopram (CeleXA) 20 mg tablet, Take 20 mg by mouth daily. , Disp: , Rfl: cyanocobalamin (VITAMIN B12) 250 mcg tablet, Take 250 mcg by mouth daily. Will check dosage, Disp: , Rfl: DME CPAP, DME Order, Disp: 1 each, Rfl: 0 DME Oxygen, DME Order, Disp: 1 each, Rfl: 0 epoetin tu (EPOGEN,PROCRIT) 10,000 Unit/mL injection, Inject under the skin every 14 (fourteen) days. Unsure how many units, Disp: , Rfl: fluticasone furoate-vilanteroL (Breo Ellipta) 200-25 mcg/act inhaler, INHALE 1 PUFF EVERY DAY, Disp: 60 each, Rfl: 10 fluticasone propionate (FLONASE) 50 mcg/actuation nasal spray, Administer 2 sprays into each nostril daily., Disp: , Rfl: folic acid 1 mg tablet, Take 1 mg by mouth daily. Will check dosage, Disp: , Rfl: hydroxychloroquine (PLAQUENIL) 200 mg tablet, Take 2 tablets (400 mg total) by mouth every morning.Updated eye exam needed on file, Disp: 180 tablet, Rfl: 0 iron,carbonyl-vitamin C (VITRON-C) 65 mg iron- [address] tablet, Take 1 tablet by mouth daily. , Disp: , Rfl: leflunomide (ARAVA) 10 mg tablet, TAKE 1 TABLET EVERY DAY ON WEDNESDAY THROUGH WEDNESDAY DIRECTED (NO MEDICATION ON WEDNESDAY OR WEDNESDAY), Disp: 20 tablet, Rfl: 2 levothyroxine (SYNTHROID, LEVOTHROID) 125 mcg tablet, Take 1 tablet by mouth every morning. Takes Synthroid only, never generic , Disp: , Rfl: loperamide (IMODIUM A-D) 2 mg capsule, Take 1 capsule (2 mg total) by mouth 3 (three) times a day as needed for diarrhea., Disp: , Rfl: melatonin 5 mg tablet, Take 3 tablets (15 mg total) by mouth at bedtime. (Patient taking differently: Take 5 mg by mouth as needed.), Disp: , Rfl: 0 metoprolol succinate (TOPROL-XL) 25 mg 24 hr tablet, Take 1 tablet (25 mg total) by mouth 2 (two) times a day. Do not crush or chew., Disp: 180 tablet, Rfl: 3 pmwfmxcrjshr-zpkg-WS-Ca-minerals (THERAPEUTIC-M) 400 mcg (folic acid) per tablet, Take 1 tablet by mouth daily., Disp: , Rfl: omeprazole (PriLOSEC) [address] capsule, Take 20 mg by mouth daily. In the morning, Disp: , Rfl: oxyBUTYnin (DITROPAN-XL) 5 mg 24 hr tablet, Take 5 mg by mouth daily., Disp: , Rfl: potassium chloride (K-TAB) 20 mEq CR tablet, Take 1 tablet (20 mEq total) by mouth daily., Disp: 90tablet, Rfl: 3 predniSONE (DELTASONE) 5 mg tablet, Take 1 tablet (5 mg total) by mouth daily. Continue through 12/01/2021., Disp: 90 tablet, Rfl: 3 saliva substitution (BIOTENE DRY MOUTH ORAL RINSE) mouthwash, Apply 1 application to the mouth or throat as needed (dry mouth)., Disp: , Rfl: torsemide (DEMADEX) 20 mg tablet, Take 3 tablets (60 mg total) by mouth daily. (Patient taking differently: Take 60 mg by mouth daily. Patient states she takes a extra 3 tablets if weight increases over 5lbs), Disp: 270 tablet, Rfl: 3 traZODone (DESYREL) 50 mg tablet, Take 1 tablet (50 mg total) by mouth at bedtime as needed for sleep., Disp: 30 tablet, Rfl: 0 Ventolin HFA 90 mcg/actuation inhaler, Inhale 2 puffs every 4 (four) hours as needed for shortness of breath or wheezing. Doesn't take very often, Disp: 8 g, Rfl: 3 REVIEW OF SYSTEMS All other systems reviewed and are negative. OBJECTIVE BP 108/62 Pulse 72 Ht 160 cm Wt 68.9 kg BMI 26.91 kg/m?? PHYSICAL EXAMINATION General: Awake alert oriented HEENT: KHANH, EOMI, Mucous membranes moist, no oral lesions Neck: No Masses, No Bruits, chaotic jugular venous pulse appreciated midway up the neck Lungs: Clear to ascultation Heart: Irregularly irregular rhythm, loud 3/6 murmur at the apex Abdomen: Soft, Non-tender Extremities no synovitis, tenderness over the dorsum of her left wrist, trace pitting ankle edema, compressive garments in place Neuro: Cranial Nerves intact, Gait is normal, strength grossly normal Skin: no suspicious lesions identified Psychiatric: Normal affect DIAGNOSTICS Note creatinine stable at 1.7 mg/dL, microalbumin to creatinine ratio 70 milligrams/gram, hemoglobin 9.6 with normal iron stores ASSESSMENT / PLAN #1 Chronic Kidney Disease Stage 4 Glomerular Filtration Rate 15-29 (HCC) She is cardiorenal syndrome, hypertensive nephrosclerosis and ischemic nephropathy. I am gratified with the stability of her serum creatinine particularly given her appetite. Going forward: 1. Continue with current torsemide dose of 60 mg in the morning and 20 mg in the afternoon 2. Continue with potassium supplements 3. I will see her back in Nephrology Clinic in 3-4 months, scheduled today 4. See below we will continue to work on her erythrocyte stimulating agent to target hemoglobin between 10 and 11 5. Low-sodium diet less than 2000 mg sodium per day 6. Continue with goal-directed therapy, she is on Entresto, beta blockade, diuretics. I do not favor her being on an SG LT 2 inhibitor currently. #2 Hypertension And Chronic Kidney Disease Stage 4 (HCC) Her goal blood pressure is above 90s and below 120, she is met this. Please see above discussion. #3 Pulmonary Hypertension Due To Left Heart Disease (HCC) Seems reasonably well compensated currently. #4 Acute On Chronic Diastolic (Congestive) Heart Failure (HCC) There was some suspicion during her recent hospitalization she was again volume overloaded in her torsemide dose was accelerated slightly. Please see above discussion she will continue to follow the heart failure regimen, weighing herselfdaily and doubling her dose of torsemide for 2 days. This would be in response to a weight gain of 2 lb for 2 days, and we would also consider brief utilization of metolazone. #5 Atrial Fibrillation Unspecified (HCC) She is orally anticoagulated, I am concerned about the recent thromboembolic phenomenon, which would suggest that she failed apixaban. Difficult issue with respect to competing priorities of higher risk of bleeding. Her current dose of apixaban is at maximum 5 mg twice daily. Her rate is well controlled. #6 Arthritis Rheumatoid (HCC) She is back on her disease modifying agent. I am also noticing her elevated uric acid level, which could imply some degree of crystalline arthropathy as well. We may need to consider whether she needs to be back on allopurinol. #7 Apnea Sleep Obstructive Adherent to her CPAP #8 Anemia Of Chronic Renal Disease I will increase the range at which she is allowed to receive her EPO to support her getting the injection if her hemoglobin is 11 or lower. This is critical from her cardiovascular perspective. I rewrote her infusion center orders today. #9 Chronic Obstructive Pulmonary Disease (HCC) Continues on 1 L of oxygen #10 Hyperparathyroidism Renal Secondary (HCC) Acceptable calcium and phosphorus #11 Debility She is making dramatic strides with her ability to be more ambulatory and participate in life. Total time: 45 minute Counseling Time: 35 minutes Luis Agarwal Jr., D.O. NDANT SALES documented in this encounter Plan of Treatment Not on file documented as of this encounter Visit Diagnoses Diagnosis Hypertension And Chronic Kidney Disease Stage 4 (HCC)- Primary Chronic Kidney Disease Stage 4 Glomerular Filtration Rate 15-29 (HCC) Pulmonary Hypertension Due To Left Heart Disease (HCC) Acute On Chronic Diastolic (Congestive) Heart Failure (HCC) Atrial Fibrillation Unspecified (HCC) Arthritis Rheumatoid (HCC) Apnea Sleep Obstructive Anemia Of Chronic Renal Disease Chronic Obstructive Pulmonary Disease (HCC) Hyperparathyroidism Renal Secondary (HCC) Debility documented in this encounter Additional Health Concerns Assessment Noted Time PHQ-9 Depression Total Score: 10 022 2:00 PM CDT documented as of this encounter Care Teams Director Of Residence Life Relationship Specialty Start Date End Date Elsewhere, Pcp PCP - General Internal Medicine 04/08/22 documented as of this encounter
--- OUTSIDE RECORDS SUMMARY | 2023-08-17 17:07 | XMS_ITS | Encounter Summary ---
Author Name Unknown Organization [facility] Address [address] [place] [address] Care Team Providers Care District Or District Office Director Name Role Phone Elsewhere, Pcp Primary Care Provider Unavailabl e Reason for Visit * Reason Onset Date Comments Rx Prior Authorization 05/13/2023 Plaquenil Encounter Details Date Type Department Care Team (Latest Contact Info) Description 05/13/2023 Clinical Communication Division of Rheumatology in [place], [place] [address] [place] [address] Rosa Bolton, DIPAK, C.N.P., M.S. [address] [place] [phone] Rx Prior Authorization (Plaquenil) Social History Tobacco Use Types Packs/Day Years [...] any clubs o r organizations such as restoration groups, unions, fraternal or athletic groups, or [...] Answer Date Recorded PHQ-2 Score 3 09/24/2021 [facility] - Occupational [...] encounter Miscellaneous Notes * Addendum Note - Nimisha Horner - 06/14/2023 3:50 PM CSTAddended by: NIMISHA HORNER on: 06/14/2023 03:50 PM Modules accepted: Orders RINTENDENT STATIONS * Telephone Encounter - Aliya Worrell - 05/17/2023 8:04 AM SUPERINTENDENT STATIONS PA is approved through May 09, 2024 RINTENDENT STATIONS documented in this encounter Plan of Treatment Not on file documented as of this encounter Visit Diagnoses Diagnosis Arthritis Rheumatoid (HCC) documented in this encounter Additional Health Concerns Assessment Noted Time PHQ-9 Depression Total Score: 10 022 2:00 PM CDT documented as of this encounter Care Teams District Or District Office Director Relationship Specialty Start Date End Date Elsewhere, Pcp PCP - General Internal Medicine 04/08/22 documented as of this encounter
--- OUTSIDE RECORDS SUMMARY | 2023-08-17 17:07 | XMS_ITS | Clinical Summary ---
Author Name Unknown Organization [facility] Address [place], [place] [address] Care Team Providers Care House Carpenter Name Role Phone Alcides Gonzalez MD Primary Care Provider Allergies Active Allergy Reactions Criticality Noted Date Comments Gabapentin Rash Low 09/18/2020 Hydrocodone Nausea Only Low 09/18/2020 Levothyroxine Sodium Rash,Itching 06/16/2013 Can take synthroid, not generic-Levothyrox ine Hydrocodone-Acetaminophe n Nausea And Vomiting 06/16/2013 Medications Medication Sig Dispensed Refills Start Date End Date Status citalopram (CELEXA) 20 mg tabletIndications:Anem ia, unspecified,Diarrhea,G I bleeding,Gastric erosions,Gastric and duodenal angiodysplasia Take 1 tablet by mouth once daily. 0 06/16/2013 Active hydrochlorothiazide (HCTZ) 25 mg tabletIndications:Anem ia, unspecified,Diarrhea,G I bleeding,Gastric erosions,Gastric and duodenal angiodysplasia Take 1 tablet by mouth once daily. 0 06/16/2013 Active metoprolol succinate (TOPROL XL) 25 mg Sustained-Release tabletIndications:Anem ia, unspecified,Diarrhea,G I bleeding,Gastric erosions,Gastric and duodenal angiodysplasia Take 75 mg by mouth once daily. 0 06/16/2013 Active levothyroxine (SYNTHROID) 112 mcg tabletIndications:Anem ia, unspecified,Diarrhea,G I bleeding,Gastric erosions,Gastric and duodenal angiodysplasia Take 1 tablet by mouth before breakfast. 0 06/16/2013 Active omeprazole (PRILOSEC) 20 mg capsuleIndications:Ane pilar, unspecified,Diarrhea,G I bleeding,Gastric erosions,Gastric and duodenal angiodysplasia Take 1 capsule by mouth once daily before a meal. 0 06/16/2013 Active hydroxychloroquine (PLAQUENIL) 200 mg tabletIndications:Anem ia, unspecified,Diarrhea,G I bleeding,Gastric erosions,Gastric and duodenal angiodysplasia Take by mouth once daily. 0 06/16/2013 Active ASCORBATE CALCIUM (VITAMIN C ORAL) Take 65-125 mg by mouth 3 times daily. Active FLAXSEED OIL ORAL Take by mouth once daily. Active apixaban (ELIQUIS) 5 mg tablet 12/27/2019 Active buPROPion (WELLBUTRIN XL) 150 mg Extended-Release tablet Daily 05/23/2020 Active Ferrous Gluconate 324 mg (38 mg iron) tablet Daily Ac tive Breo Ellipta 200mcg/25mcg inhaler 06/03/2020 Acti ve furosemide (LASIX) 20 mg tablet Daily 01/16/2020 Active leflunomide (ARAVA) 10 mg tablet Daily 09/13/2020 Active loperamide (IMODIUM) 2 mg capsule Daily Active oxybutynin XL (DITROPAN XL) 5 mg CR tablet Daily 06/10/2020 Active predniSONE (DELTASONE) 5 mg tablet 09/13/2020 Active ENTRESTO 97 MG-103 MG TABLET 97-103 mg tablet 07/15/2020 Active ENTRESTO 24 MG-26 MG TABLET 24-26 mg tablet 08/28/2020 Ac tive spironolactone (ALDACTONE) 25 mg tablet Daily 09/12/2020 Active trimethoprim-sulfameth oxazole, 160-800 mg, (BACTRIM DS, SEPTRA DS) tab Take 1 Tablet by mouth 2 times daily. 11/25/2020 Active budesonide (Entocort EC) 3 mg capsuleIndications:Col lagenous colitis Take 1 pill once a day by mouth 30 Capsule 2 11/27/2020 Active Active Problems Problem Noted Date Diagnosed Date Colon polyp 09/25/2020 Overview: Colonoscopy 09/2020 1 polyp and collagenous colitis, repeat in 7 years Angiodysplasia of duodenum 07/31/2013 GI bleeding 06/20/2013 Overview: EGD 06/2013 erosions, duodenal angiodysplasia Colonoscopy 06/2013 microscopic colitis intermediate manager (current) use of anticoagulants 2013 Atrial fibrillation 06/16/2013 Encounters Date Type Department Care Team Description 08/16/[address] [facility] [address] [place] [address] Valentino Maldonado MD Refill Request (Torsemide 20mg tab ) from Last 3 Months Social History Tobacco Use Types Packs/Day Years Used Date Smoking Tobacco: Never Smokeless Tobacco: Never Tobacco Cessation:Counseling Given: Yes Alcohol Use Standard Drinks/Week Comments Not Asked 0 (1 standard drink = 0.6 oz pur e alcohol) PHQ-2 Answer Date Recorded PHQ-2 TOTAL SCORE 2 09/04/2022 Social Connections Answer Date Recorded Frequency of Communication with Friends and Fami ly Not on file 05/10/2021 Financial Resource Strain Answer Date R ecorded Difficulty of Paying Living Expenses Not on file 05/10/2021 Difficulty of Paying Living Expenses Not on file 05/10/2021 Sex and Gender Information Value Date Recorded Sex Assigned at Not on file Gender Identity Not on file Sexual Orientation Not on file Obstetrics History Last Filed Vital Signs Vital Sign Reading Time Taken Comments Blood Pressure 114/70 12/22/2021 2:00 PM CDT Pulse 78 12/22/2021 2:00 PM CDT Temperature 36.7 ??C (98 ??F) 07/12/2013 2:37 PM BILLING ANALYST Respiratory Rate 22 12/22/2021 2:00 PM CDT Oxygen Saturation 96% 12/22/2021 2:00 PM CDT Inhaled Oxygen Concentration - - Weight 71.4 kg (157 lb 6.4 oz) 12/22/2021 2:00 P M CDT Height 167.6 cm (5' 6) 12/22/2021 2:00 PM CDT Body Mass Index 25.41 12/22/2021 2:00 PM CDT Plan of Treatment Health Maintenance Due Date Last Done Comments Tdap 1956 BMI (ht and wt on same day) for age 18+ 1963 Hepatitis C screening for ag e 18-79 1963 Tetanus booster 1965 Zoster (shingles) series for age 50+ (1 of 2) 1995 DEXA/DXA scan for age 65+ 2010 Medicare Wellness for age 65+ 2010 Pneumococcal series for age 65+ (1 of 1 - PCV) 2010 COVID-19 vaccine series (2 - 2022-24 season) 2023 03/06/2022 Depression screening for age 12+ 09/01/2023 08/31/2022, 06/26/2022, 06/23/2022, Additional history exists Influenza for age 65+ 01/09/2024 Care Teams House Carpenter Relationship Specialty Start Date End Date Alcides Gonzalez MD PCP - General Family Practice 06/13/13
[2023-08-17] MEDS: cefTRIAXone 1 GM in 0.9 % SODIUM CHLORIDE Mini-bag 100 ML IVPB (17:10)
[2023-08-17 17:22] LABS: NT Pro B Type NatriureticPept* 16200 pg/mL
[2023-08-17] MEDS: AZITHROMYCIN 500 MG in 0.9 % SODIUM CHLORIDE 250 ml 250 ML 255 MG IVPB (18:25)
[2023-08-17] MEDS: 0.9 % SODIUM CHLORIDE 500 ML 500 ML IV (20:02)
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
[2023-08-17 21:37] LABS: Troponin I* 0.24 ng/mL (0.01-0.04)
[2023-08-17] MEDS: METOPROLOL SUCCINATE (XL) 25 MG TAB PO (22:29)
[2023-08-17] MEDS: APIXABAN 5 MG TABLET PO (22:30)
[2023-08-18] VITALS (8 sets, daily range): BP systolic 98–131; BP diastolic 62–75; PULSE 67–87; RESP 22–28; TEMP 36.5–36.9; O2SAT 90–98
[2023-08-18 00:36] LABS: Appearance Urine Clear (Clear); Bilirubin Urine Negative (Negative); Blood Urine Negative (Negative); Color Urine Yellow (Yellow); Glucose Urine Negative (Negative); Ketones Urine 1+ (Negative); Leukocyte Esterase Urine 1+ (Negative); Nitrite Urine Negative (Negative); Protein Urine Trace (Negative); Specific Gravity Urine 1.015 (1.000-1.030); Urobilinogen Urine 0.2 (0.2-1.0); pH Urine 5.5 (5.0-8.5)
[2023-08-18 00:48] LABS: Bacteria Urine Few; RBC Urine 0-2 (0-2); Squamous Epithelial Cell Urine Few (None-Few)
[2023-08-18] MEDS: FUROSEMIDE 10 MG/ML inj 40 MG IVP (06:01)
[2023-08-18] MEDS: SODIUM CHLORIDE 0.9 % (FLUSH) 10 ML SYRINGE 5 ML IVF ×3 (06:02→21:02)
--- NOTE | 2023-08-18 06:12 | PC.NURSE ---
END OF SHIFT NOTE: A&Ox4. VSS ON CPAP OR 0.5-1L NC. SPO2 93-97%. RR 24-28. AFEBRILE. IV TO LEFT AC ASYMPTOMATIC AND SL. PT AMBULATES WITH A1/W. PT SOB WITH ACTIVITY. POSTERIOR LS WITH BILATERAL CRACKLES AND EX. WHEEZES. MOIST COUGH. CPAP REMOVED AT 4AM PER PT REQUEST. INDENTATION TO PT'S FACE FROM CPAP MASK; LIGHTENING UP WITH TIME. PT SLEPT WELL DURING HS.
[2023-08-18 06:52] LABS: HCO3 VBG 28 mmol/L (21-28); PCO2 VBG 53 mmHG (40-50); PO2 VBG < 30.1 mmHG (25-47); pH VBG 7.331 (7.32-7.43)
[2023-08-18 07:07] LABS: Hemoglobin* 9.7 gm/dL (12.0-16.0); Mean Corpuscular HGB Conc 31 gm/dL (32-36); Mean Corpuscular Hemoglobin 31 pg (26-34); Mean Corpuscular Volume 100 fL (80-100); Platelet Count* 221 K/uL (140-440); Red Blood Count 3.09 m/uL (4.00-5.20); White Blood Count* 6.17 K/uL (4.50-11.00)
[2023-08-18 07:18] LABS: Potassium* 4.4 mmol/L (3.6-5.1); Slide Review Reflex No; Sodium* 140 mmol/L (135-149)
[2023-08-18 07:19] LABS: Chloride* 104 mmol/L (96-114)
[2023-08-18 07:21] LABS: Anion Gap 8 mEq/L (7-15); Blood Urea Nitrogen* 38 mg/dL (7-30); Carbon Dioxide* 28 mmol/L (20-32); Creatinine* 1.1 mg/dL (0.5-1.5); Est. Creatinine Clearance* 37.93; Estimated Glomerular Filt Rate 51 ml/min; Glucose* 150 mg/dL (60-115)
[2023-08-18 07:22] LABS: Calcium* 8.7 mg/dL (8.4-10.6)
[2023-08-18 07:32] LABS: NT Pro B Type NatriureticPept* 22200 pg/mL
[2023-08-18 08:43] LABS: Troponin I* 0.19 ng/mL (0.01-0.04)
[2023-08-18] MEDS: guaiFENesin 600 MG TAB.ER.12H PO ×2 (09:03→21:01)
[2023-08-18] MEDS: APIXABAN 5 MG TABLET PO ×2 (09:03→21:01)
[2023-08-18] MEDS: METOPROLOL SUCCINATE (XL) 25 MG TAB PO ×2 (09:03→21:01)
[2023-08-18] MEDS: predniSONE 20 MG TABLET 40 MG PO (09:04)
[2023-08-18] MEDS: TORSEMIDE 20 MG TABLET 80 MG PO (11:30)
[2023-08-18] MEDS: AZITHROMYCIN 250 MG TABLET 500 MG PO (11:31)
[2023-08-18] MEDS: OMEPRAZOLE 20 MG CAPSULE DR PO (11:31)
[2023-08-18] MEDS: buPROPion XL 150 MG TABLET 300 MG PO (11:31)
[2023-08-18] MEDS: CITALOPRAM HYDROBROMIDE 20 MG TABLET PO (11:32)
[2023-08-18] MEDS: SACUBITRIL 24 mg/VALSARTAN 26 mg TABLET 1 TAB PO ×2 (11:32→21:01)
[2023-08-18] MEDS: POTASSIUM CHLORIDE 10 MEQ CAPSULE ER 20 MEQ PO (11:32)
[2023-08-18] MEDS: FERROUS SULFATE 325 MG TABLET 650 MG PO (11:32)
--- NOTE | 2023-08-18 13:25 | PM.IMPN1 ---
Progress Note: A&P Assessment and plan (1) Acute on chronic hypoxic respiratory failure: Problem details: Patient has chronic hypoxia occasionally requiring oxygen at home. This week she has had to use 3 L per nasal cannula and even with that was severely dyspneic. I believe the cause of this is primarily a respiratory infection without obvious pneumonia. Will nevertheless treat for community-acquired pneumonia with ceftriaxone and azithromycin and treat COPD exacerbation. Status: Acute (2) COPD exacerbation: Problem details: COPD diagnosis per [facility] is mild based on PFTs but clinically appears to have significant COPD today. Will treat with nebs and steroids. Status: Acute (3) Diastolic congestive heart failure, NYHA class 3: Problem details: Heart failure with preserved ejection fraction and mitral and tricuspid valvular disease is likely the main cause of her chronic dyspnea and hypoxia. She does not appear to be obviously volume overloaded now though she did tell me that she increase her torsemide to 60 mg b.i.d. for a few days prior to this admission. Continue her home medications for this and continue to monitor volume status with more aggressive diuresis as needed Status: Chronic (4) Pulmonary sarcoidosis: Problem details: Chronic, CT shows mild mediastinal lymphadenopathy. Probably not the primary cause of her dyspnea Status: Chronic (5) EDITH (obstructive sleep apnea): Problem details: -compliant with CPAP. follows with sleep medicine/[facility] Status: Chronic (6) Non-STEMI (non-ST elevated myocardial infarction): Problem details: Elevated troponin associated with current hypoxic respiratory failure. I favor a stress-induced ischemia at this time Status: Acute Plan Patient is med the hospital for evaluation management of hypoxic respiratory failure in the context of COPD, heart failure with preserved ejection fraction and valvular heart disease, community-acquired pneumonia/bronchitis. Time Spent With Patient Total time spent: Total time spent today is 65 minutes, 45 minutes in coordination of care discussing with patient other providers ongoing evaluation management of respiratory failure. Subjective Date Seen: 08/18/23 Interval history: Angi Chen is a 78 year old female past medical history significant for COPD, EDITH, CPAP use, CKD stage 4, diastolic congestive heart failure, rheumatoid arthritis, pulmonary sarcoidosis, atrial fibrillation on chronic anticoagulation, hypothyroidism, anemia in chronic kidney disease, splenic infarct is admitted to the medical floor from the ED for further management acute COPD exacerbation. Patient reports worsening shortness of breath and a productive cough over the last several days. She admits to fatigue and chills. She has had diarrhea for the last couple of days without vomiting. Admits to mild headaches. Denies dizziness. Denies chest pain. Admits to chest tightness with some wheezing. Uses oxygen as needed. Wears a CPAP nightly. Recent visit with [facility] 06/22/2023 for diastolic heart failure. Target dry weight was 147 lb at that time. Decided not to use an SGOT 2 based on nuclear fuel enrichment technician recommendation. Worsening of her mitral valve and tricuspid regurgitation also noted on echo at that time. On AFib with rate control and anticoagulation. 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 Recent visit at [facility] with server security administrator for sarcoidosis. She has chronic dyspnea with p.r.n. use of oxygen. Pulmonology thinks that this is multifactorial including cardiac/heart failure some mild COPD, deconditioning. Pulmonology did not think sarcoidosis was a primary contributor to her dyspnea. Obstructive sleep apnea on CPAP also noted. Since admission patient has been treated with steroids for COPD, antibiotics for infection and and IV furosemide for heart failure. She reports feeling better today. Still dyspneic at rest. Still requiring oxygen but reporting much better since admission. She had elevated troponins without chest pain. Exam Narrative: Exam Narrative: She is alert and appears to have mild increased work of breathing on supplemental oxygen. O2 sats are in the low to mid 90s. Respirations with coarse expiratory wheezes and crackles heard diffusely. She has somewhat prolonged expiratory phase and somewhat diminished breath sounds. No consolidation. Cardiovascular: S1, S2, irregularly irregular. Distant heart sounds. 2/6 systolic murmur at the left lower sternal border. Abdomen is soft without tenderness or mass. Extremities without significant edema. Const: Vital Signs, click to edit/add: Vital Signs - 24 hr 08/17/23 15:29 08/17/23 15:33 08/17/23 15:34 Temperature 100.8 F H Pulse Rate 102 H 98 Pulse Rate [Pulse Oximeter] 94 Pulse Rate [Right Pulse Oximeter] Respiratory Rate 32 H Blood Pressure 161/89 H Blood Pressure [Le ft Upper Arm] 151/100 H Blood Pressure [Ri ght Arm] Pulse Oximetry 92 92 91 Oxygen Delivery Me thod Room Air Oxygen Flow Rate Fraction of Inspir ed Oxygen 08/17/23 15:45 08/17/23 15:45 08/17/23 16:00 Temperature Pulse Rate 85 93 Pulse Rate [Pulse Oximeter] Pulse Rate [Right Pulse Oximeter] Respiratory Rate Blood Pressure Blood Pressure [Le ft Upper Arm] Blood Pressure [Ri ght Arm] Pulse Oximetry 96 96 97 Oxygen Delivery Me thod Nasal Cannula Nasal Cannula Nasal Cannula Oxygen Flow Rate 2 2 2 Fraction of Inspir ed Oxygen 08/17/23 16:15 08/17/23 16:30 08/17/23 16:32 Temperature Pulse Rate 92 98 106 H Pulse Rate [Pulse Oximeter] Pulse Rate [Right Pulse Oximeter] Respiratory Rate Blood Pressure 136/74 Blood Pressure [Le ft Upper Arm] Blood Pressure [Ri ght Arm] Pulse Oximetry 96 96 96 Oxygen Delivery Me thod Nasal Cannula Nasal Cannula Nasal Cannula Oxygen Flow Rate 2 2 2 Fraction of Inspir ed Oxygen 08/17/23 16:33 08/17/23 16:35 08/17/23 16:45 Temperature Pulse Rate 72 94 Pulse Rate [Pulse Oximeter] Pulse Rate [Right Pulse Oximeter] Respiratory Rate 28 H Blood Pressure Blood Pressure [Le ft Upper Arm] Blood Pressure [Ri ght Arm] Pulse Oximetry 91 97 Oxygen Delivery Me thod Nasal Cannula Nasal Cannula Oxygen Flow Rate 2 2 Fraction of Inspir ed Oxygen 08/17/23 17:16 08/17/23 17:21 08/17/23 17:30 Temperature Pulse Rate 98 92 Pulse Rate [Pulse Oximeter] Pulse Rate [Right Pulse Oximeter] Respiratory Rate Blood Pressure 136/83 Blood Pressure [Le ft Upper Arm] Blood Pressure [Ri ght Arm] Pulse Oximetry 94 94 Oxygen Delivery Me thod CPAP CPAP Oxygen Flow Rate Fraction of Inspir ed Oxygen 25 25 25 08/17/23 17:32 08/17/23 17:33 08/17/23 18:00 Temperature Pulse Rate 89 98 90 Pulse Rate [Pulse Oximeter] Pulse Rate [Right Pulse Oximeter] Respiratory Rate Blood Pressure 118/77 Blood Pressure [Le ft Upper Arm] Blood Pressure [Ri ght Arm] Pulse Oximetry 94 94 95 Oxygen Delivery Me thod CPAP CPAP CPAP Oxygen Flow Rate Fraction of Inspir ed Oxygen 25 30 30 08/17/23 18:02 08/17/23 18:30 08/17/23 18:32 Temperature Pulse Rate 90 88 84 Pulse Rate [Pulse Oximeter] Pulse Rate [Right Pulse Oximeter] Respiratory Rate Blood Pressure 123/65 109/71 Blood Pressure [Le ft Upper Arm] Blood Pressure [Ri ght Arm] Pulse Oximetry 94 94 94 Oxygen Delivery Me thod CPAP CPAP CPAP Oxygen Flow Rate Fraction of Inspir ed Oxygen 30 30 30 08/17/23 19:00 08/17/23 19:02 08/17/23 19:30 Temperature Pulse Rate 84 81 83 Pulse Rate [Pulse Oximeter] Pulse Rate [Right Pulse Oximeter] Respiratory Rate Blood Pressure 104/74 Blood Pressure [Le ft Upper Arm] Blood Pressure [Ri ght Arm] Pulse Oximetry 95 95 97 Oxygen Delivery Me thod CPAP CPAP CPAP Oxygen Flow Rate Fraction of Inspir ed Oxygen 30 30 30 08/17/23 19:32 08/17/23 20:00 08/17/23 20:02 Temperature 98.9 F 98.9 F Pulse Rate 78 Pulse Rate [Pulse Oximeter] Pulse Rate [Right Pulse Oximeter] Respiratory Rate 34 H Blood Pressure 95/79 Blood Pressure [Le ft Upper Arm] Blood Pressure [Ri ght Arm] Pulse Oximetry 98 Oxygen Delivery Me thod CPAP Oxygen Flow Rate Fraction of Inspir ed Oxygen 30 08/17/23 20:02 08/17/23 20:16 08/17/23 20:16 Temperature 98.8 F Pulse Rate 83 Pulse Rate [Pulse Oximeter] Pulse Rate [Right Pulse Oximeter] 86 Respiratory Rate 26 H 26 H Blood Pressure 107/69 Blood Pressure [Le ft Upper Arm] Blood Pressure [Ri ght Arm] 106/67 Pulse Oximetry 97 95 95 Oxygen Delivery Me thod CPAP CPAP CPAP Oxygen Flow Rate 10 10 Fraction of Inspir ed Oxygen 30 30 08/17/23 21:33 08/18/23 00:00 08/18/23 00:00 Temperature Pulse Rate 69 Pulse Rate [Pulse Oximeter] Pulse Rate [Right Pulse Oximeter] Respiratory Rate 26 H Blood Pressure Blood Pressure [Le ft Upper Arm] Blood Pressure [Ri ght Arm] Pulse Oximetry 95 97 Oxygen Delivery Me thod CPAP Oxygen Flow Rate Fraction of Inspir ed Oxygen 30 08/18/23 00:00 08/18/23 00:00 08/18/23 04:00 Temperature 97.7 F Pulse Rate Pulse Rate [Pulse Oximeter] 68 67 Pulse Rate [Right Pulse Oximeter] 68 Respiratory Rate 24 24 28 H Blood Pressure Blood Pressure [Le ft Upper Arm] Blood Pressure [Ri ght Arm] 117/71 107/69 Pulse Oximetry 97 97 Oxygen Delivery Me thod CPAP CPAP Oxygen Flow Rate 10 10 Fraction of Inspir ed Oxygen 30 30 08/18/23 07:33 08/18/23 07:33 08/18/23 07:39 Temperature 98.1 F Pulse Rate 73 Pulse Rate [Pulse Oximeter] 76 Pulse Rate [Right Pulse Oximeter] Respiratory Rate 28 H Blood Pressure Blood Pressure [Le ft Upper Arm] Blood Pressure [Ri ght Arm] 131/75 Pulse Oximetry 90 90 Oxygen Delivery Me thod Nasal Cannula Oxygen Flow Rate 1 Fraction of Inspir ed Oxygen 08/18/23 11:41 Temperature 98.5 F Pulse Rate Pulse Rate [Pulse Oximeter] 76 Pulse Rate [Right Pulse Oximeter] Respiratory Rate 24 Blood Pressure Blood Pressure [Le ft Upper Arm] Blood Pressure [Ri ght Arm] 113/70 Pulse Oximetry 94 Oxygen Delivery Me thod Nasal Cannula Oxygen Flow Rate 1 Fraction of Inspir ed Oxygen Documenting provider has reviewed patient's vital signs: yes Labs Labs: Laboratory Results - last 24 hr 08/17/23 08/17/23 08/17/23 15:20 15:20 15:20 WBC RBC Hgb Hct MCV MCH MCHC RDW Coeff of Estrella Plt Count Neut % (Auto) Lymph % (Auto) [place] % (Auto) Eos % (Auto) Baso % (Auto) Neut # (Auto) Lymph # (Auto) [place] # (Auto) Eos # (Auto) Baso # (Auto) Abs Immat Gran (auto) Imm/Tot Granulo (auto) VBG pH VBG pCO2 VBG pO2 VBG HCO3 Sodium Potassium Chloride Carbon Dioxide Anion Gap BUN Creatinine Estimated Creat Clear Estimated GFR Glucose Calcium Magnesium Cancelled 2.2 Troponin I NT-Pro-B Natriuret Pep Cancelled [id number] Procalcitonin 0.30 Urine Color Urine Appearance Urine pH Ur Specific [place] Urine Protein Urine Glucose (UA) Urine Ketones Urine Blood Urine Nitrite Urine Bilirubin Urine Urobilinogen Ur Leukocyte Esterase Urine RBC Urine WBC Ur Squamous Epith Cells Urine Bacteria SARS-CoV-2 (PCR) Influenza Type A (PCR) Influenza Type B (PCR) RSV (PCR) Lab Acknowledgement POC Troponin I 08/17/23 08/17/23 08/17/23 15:28 15:40 15:48 WBC 12.87 H RBC 3.28 L Hgb 10.0 L Hct 32.3 L MCV 99 MCH 31 MCHC 31 L RDW Coeff of Estrella 20.9 H Plt Count 268 Neut % (Auto) 78.3 H Lymph % (Auto) 7.8 L [place] % (Auto) 13.0 H Eos % (Auto) 0.5 Baso % (Auto) 0.2 Neut # (Auto) 10.10 H Lymph # (Auto) 1.00 [place] # (Auto) 1.70 H Eos # (Auto) 0.10 Baso # (Auto) 0.00 Abs Immat Gran (auto) 0.00 Imm/Tot Granulo (auto) 0.2 VBG pH VBG pCO2 VBG pO2 VBG HCO3 Sodium 138 Potassium 3.9 Chloride 103 Carbon Dioxide 28 Anion Gap 7 BUN 35 H Creatinine 1.3 Estimated Creat Clear 32.09 Estimated GFR 42 Glucose 129 H Calcium 9.1 Magnesium Troponin I NT-Pro-B Natriuret Pep Procalcitonin Urine Color Urine Appearance Urine pH Ur Specific [place] Urine Protein Urine Glucose (UA) Urine Ketones Urine Blood Urine Nitrite Urine Bilirubin Urine Urobilinogen Ur Leukocyte Esterase Urine RBC Urine WBC Ur Squamous Epith Cells Urine Bacteria SARS-CoV-2 (PCR) Negative SARS-CoV-2 Influenza Type A (PCR) Negative PCR FLU A Influenza Type B (PCR) Negative PCR FLU B RSV (PCR) Negative PCR RSV Lab Acknowledgement POC Troponin I 0.15 H 08/17/23 08/17/23 08/18/23 16:42 20:54 00:25 WBC RBC Hgb Hct MCV MCH MCHC RDW Coeff of Estrella Plt Count Neut % (Auto) Lymph % (Auto) [place] % (Auto) Eos % (Auto) Baso % (Auto) Neut # (Auto) Lymph # (Auto) [place] # (Auto) Eos # (Auto) Baso # (Auto) Abs Immat Gran (auto) Imm/Tot Granulo (auto) VBG pH 7.387 VBG pCO2 45 VBG pO2 31.2 VBG HCO3 26 Sodium Potassium Chloride Carbon Dioxide Anion Gap BUN Creatinine Estimated Creat Clear Estimated GFR Glucose Calcium Magnesium Troponin I 0.24 H* NT-Pro-B Natriuret Pep Procalcitonin Urine Color Yellow Urine Appearance Clear Urine pH 5.5 Ur Specific [place] 1.015 Urine Protein Trace A Urine Glucose (UA) Negative Urine Ketones 1+ A Urine Blood Negative Urine Nitrite Negative Urine Bilirubin Negative Urine Urobilinogen 0.2 Ur Leukocyte Esterase 1+ A Urine RBC 0-2 Urine WBC 2-5 Ur Squamous Epith Cells Few Urine Bacteria Few A SARS-CoV-2 (PCR) Influenza Type A (PCR) Influenza Type B (PCR) RSV (PCR) Lab Acknowledgement POC Troponin I 08/18/23 08/18/23 05:42 08:04 WBC 6.17 RBC 3.09 L Hgb 9.7 L Hct 31.0 L MCV 100 MCH 31 MCHC 31 L RDW Coeff of Estrella Plt Count 221 Neut % (Auto) Lymph % (Auto) [place] % (Auto) Eos % (Auto) Baso % (Auto) Neut # (Auto) Lymph # (Auto) [place] # (Auto) Eos # (Auto) Baso # (Auto) Abs Immat Gran (auto) Imm/Tot Granulo (auto) VBG pH 7.331 VBG pCO2 53 H VBG pO2 < 30.1 VBG HCO3 28 Sodium 140 Potassium 4.4 Chloride 104 Carbon Dioxide 28 Anion Gap 8 BUN 38 H Creatinine 1.1 Estimated Creat Clear 37.93 Estimated GFR 51 Glucose 150 H Calcium 8.7 Magnesium Troponin I 0.19 H* NT-Pro-B Natriuret Pep [id number] Procalcitonin Urine Color Urine Appearance Urine pH Ur Specific [place] Urine Protein Urine Glucose (UA) Urine Ketones Urine Blood Urine Nitrite Urine Bilirubin Urine Urobilinogen Ur Leukocyte Esterase Urine RBC Urine WBC Ur Squamous Epith Cells Urine Bacteria SARS-CoV-2 (PCR) Influenza Type A (PCR) Influenza Type B (PCR) RSV (PCR) Lab Acknowledgement Test Added POC Troponin I
[2023-08-18] MEDS: IPRAT-ALBUT 0.5-2.5 MG/3 ML NEB 1 NEB IH ×3 (13:29→21:02)
[2023-08-18] MEDS: ACETAMINOPHEN 325 MG TABLET PO ×2 (13:29→22:38)
[2023-08-18] MEDS: cefTRIAXone 1 GM in 0.9 % SODIUM CHLORIDE Mini-bag 100 ML IVPB (17:21)
--- NOTE | 2023-08-18 22:43 | PC.NURSE ---
Pt on 0.5 L oxygen via NC this shift. Pt SOB with exertion and at rest. Demonstrates a course cough that is productive. Scheduled nebs given. Using IS frequently, independently. Able to ambulate to BR and back with walker and gait belt. PRN tylenol given for a headache.
[2023-08-19 03:00] VITALS: BP 110/66; PULSE 67; RESP 25; TEMP 36.2; O2SAT 95
[2023-08-19 06:19] LABS: HCO3 VBG 27 mmol/L (21-28); PCO2 VBG 47 mmHG (40-50); PO2 VBG 44.6 mmHG (25-47); pH VBG 7.372 (7.32-7.43)
[2023-08-19 06:28] LABS: Hematocrit 28.5 % (33.0-51.0); Hemoglobin* 8.8 gm/dL (12.0-16.0); Mean Corpuscular HGB Conc 31 gm/dL (32-36); Mean Corpuscular Hemoglobin 31 pg (26-34); Mean Corpuscular Volume 99 fL (80-100); Platelet Count* 219 K/uL (140-440); Red Blood Count 2.88 m/uL (4.00-5.20); White Blood Count* 7.92 K/uL (4.50-11.00)
[2023-08-19 06:44] LABS: Slide Review Reflex No
[2023-08-19 06:45] LABS: Chloride* 105 mmol/L (96-114); Potassium* 3.8 mmol/L (3.6-5.1); Sodium* 138 mmol/L (135-149)
[2023-08-19 06:47] LABS: Creatinine* 1.4 mg/dL (0.5-1.5); Estimated Glomerular Filt Rate 39 ml/min
[2023-08-19 06:48] LABS: Anion Gap 7 mEq/L (7-15); Blood Urea Nitrogen* 53 mg/dL (7-30); Calcium* 8.3 mg/dL (8.4-10.6); Carbon Dioxide* 26 mmol/L (20-32); Glucose* 123 mg/dL (60-115)
[2023-08-19 07:00] VITALS: PULSE 78; O2SAT 91
[2023-08-19 07:06] LABS: Troponin I* 0.16 ng/mL (0.01-0.04)
[2023-08-19 07:59] VITALS: BP 121/75; PULSE 79; RESP 20; TEMP 36.6; O2SAT 89
[2023-08-19] MEDS: IPRAT-ALBUT 0.5-2.5 MG/3 ML NEB 1 NEB IH ×4 (08:04→21:14)
--- NOTE | 2023-08-19 08:32 | PC.NURSE ---
END OF SHIFT NOTE: A&O. VSS WITH CPAP DURING HS; AFEBRILE. IV SL TO LEFT AC. PT AMBULATES WITH SBA/W. TELE AFIB.
[2023-08-19 08:57] LABS: Legionella pneumo Ag Urine L. pneumo Negative (Negative); S pneumo Ag Urine S. pneumo Negative (Negative)
[2023-08-19] MEDS: CITALOPRAM HYDROBROMIDE 20 MG TABLET PO (09:00)
[2023-08-19] MEDS: OMEPRAZOLE 20 MG CAPSULE DR PO (09:00)
[2023-08-19] MEDS: guaiFENesin 600 MG TAB.ER.12H PO (09:01)
[2023-08-19] MEDS: FERROUS SULFATE 325 MG TABLET 650 MG PO (09:01)
[2023-08-19] MEDS: buPROPion XL 150 MG TABLET 300 MG PO (09:01)
[2023-08-19] MEDS: APIXABAN 5 MG TABLET PO ×2 (09:01→21:14)
[2023-08-19] MEDS: TORSEMIDE 20 MG TABLET 80 MG PO (09:01)
[2023-08-19] MEDS: METOPROLOL SUCCINATE (XL) 25 MG TAB PO ×2 (09:02→21:14)
[2023-08-19] MEDS: predniSONE 20 MG TABLET 40 MG PO (09:02)
[2023-08-19] MEDS: LEVOTHYROXINE 88 MCG TABLET 132 MCG PO (09:06)
[2023-08-19] MEDS: SODIUM CHLORIDE 0.9 % (FLUSH) 10 ML SYRINGE 5 ML IVF ×2 (09:07→21:15)
[2023-08-19] MEDS: SACUBITRIL 24 mg/VALSARTAN 26 mg TABLET 1 TAB PO ×2 (10:37→21:14)
[2023-08-19] MEDS: AZITHROMYCIN 250 MG TABLET 500 MG PO (10:40)
[2023-08-19 11:00] VITALS: BP 104/64; PULSE 74; RESP 18; TEMP 36.6; O2SAT 92
--- NOTE | 2023-08-19 12:41 | PM.IMPN1 ---
Progress Note: A&P Assessment and plan (1) Acute on chronic hypoxic respiratory failure: Problem details: Patient has chronic hypoxia occasionally requiring oxygen at home. This week she has had to use 3 L per nasal cannula and even with that was severely dyspneic. I believe the cause of this is primarily a respiratory infection without obvious pneumonia. Will nevertheless treat for community-acquired pneumonia with ceftriaxone and azithromycin and treat COPD exacerbation. Status: Acute (2) COPD exacerbation: Problem details: COPD diagnosis per [facility] is mild based on PFTs but clinically appears to have significant COPD today. Improving on nebulizer treatments with prednisone Status: Acute (3) Diastolic congestive heart failure, NYHA class 3: Problem details: Heart failure with preserved ejection fraction and mitral and tricuspid valvular disease is likely the main cause of her chronic dyspnea and hypoxia. She does not appear to be obviously volume overloaded now though she did tell me that she increase her torsemide to 60 mg b.i.d. for a few days prior to this admission. Resumed home heart failure medications. Now appears to be experiencing pre renal KYLAH. Temporarily reduce torsemide to 40 mg daily with very close monitoring of volume status. Status: Chronic (4) Pulmonary sarcoidosis: Problem details: Chronic, CT shows mild mediastinal lymphadenopathy. Does not appear to be the primary cause of acute dyspnea Status: Chronic (5) EDITH (obstructive sleep apnea): Problem details: -compliant with CPAP. follows with sleep medicine/[facility] Status: Chronic (6) Non-STEMI (non-ST elevated myocardial infarction): Problem details: Elevated troponin associated with current hypoxic respiratory failure. Trending down. No chest pain. No ischemic changes on EKG. I favor a stress-induced ischemia at this time Status: Acute (7) KYLAH (acute kidney injury): Problem details: Patient had diuresis on admission. BUN and creatinine have both gone up significantly. Probably due to aggressive diuresis. Status: Acute Plan Continue in-hospital for treatment of respiratory distress. Plan to discharge home when she is able to tolerate ADLs Time Spent With Patient Total time spent: Total time spent today is 55 minutes, 35 minutes in coordination of care discussing with patient and other providers management of heart disease, COPD, pulmonary infection, disposition Subjective Date Seen: 08/19/23 Interval history: Angi Chen is a 78 year old female past medical history significant for COPD, EDITH, CPAP use, CKD stage 4, diastolic congestive heart failure, rheumatoid arthritis, pulmonary sarcoidosis, atrial fibrillation on chronic anticoagulation, hypothyroidism, anemia in chronic kidney disease, splenic infarct is admitted to the medical floor from the ED for further management acute COPD exacerbation. Patient reports worsening shortness of breath and a productive cough over the last several days. She admits to fatigue and chills. She has had diarrhea for the last couple of days without vomiting. Admits to mild headaches. Denies dizziness. Denies chest pain. Admits to chest tightness with some wheezing. Uses oxygen as needed. Wears a CPAP nightly. Recent visit with [facility] 06/22/2023 for diastolic heart failure. Target dry weight was 147 lb at that time. Decided not to use an SGOT 2 based on acquisition marketing manager recommendation. Worsening of her mitral valve and tricuspid regurgitation also noted on echo at that time. On AFib with rate control and anticoagulation. 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 Recent visit at [facility] with instructional technology facilitator for sarcoidosis. She has chronic dyspnea with p.r.n. use of oxygen. Pulmonology thinks that this is multifactorial including cardiac/heart failure some mild COPD, deconditioning. Pulmonology did not think sarcoidosis was a primary contributor to her dyspnea. Obstructive sleep apnea on CPAP also noted. August 17: Since admission patient has been treated with steroids for COPD, antibiotics for infection and and IV furosemide for heart failure. She reports feeling better today. Still dyspneic at rest. Still requiring oxygen but reporting much better since admission. She had elevated troponins without chest pain. August 18: Patient reports that her breathing feels a little better today. Her cough is worse however. She reports nebulizer treatments are effective for her breathing as well as her cough. They work somewhat like an expectorant for her. Cough is occasionally productive of yellowish sputum. She is not aware of any fever. She has not had any chest pain. Her O2 sats have improved to the low 90s on room air. Exam Narrative: Exam Narrative: She is alert and appears mildly tachypneic at rest on room air. She has a relatively persistent dry harsh cough. Respirations with diffuse coarse expiratory rhonchi. Air exchange is a modestly better compared to yesterday. Still has prolonged expiratory phase. Cardiovascular: S1, S2, 2/6 systolic murmur. Irregular rhythm Abdomen: Bowel sounds active. Abdomen is soft without tenderness. Extremities without edema. Const: Vital Signs, click to edit/add: Vital Signs - 24 hr 08/18/23 15:00 08/18/23 15:00 08/18/23 15:00 Temperature 98.3 F Pulse Rate Pulse Rate [Pulse Oximeter] 76 82 Respiratory Rate 24 22 Blood Pressure [Ri ght Arm] 104/68 Pulse Oximetry 94 94 Oxygen Delivery Me thod Nasal Cannula Oxygen Flow Rate 0.5 Fraction of Inspir ed Oxygen 08/18/23 15:00 08/18/23 19:00 08/19/23 03:00 Temperature 98.5 F 97.2 F L Pulse Rate 78 Pulse Rate [Pulse Oximeter] 87 67 Respiratory Rate 22 25 H Blood Pressure [Ri ght Arm] 110/66 Pulse Oximetry 94 95 Oxygen Delivery Me thod Nasal Cannula Room Air CPAP Oxygen Flow Rate 0.5 Fraction of Inspir ed Oxygen 30 08/19/23 07:59 Temperature 97.9 F Pulse Rate Pulse Rate [Pulse Oximeter] 79 Respiratory Rate 20 Blood Pressure [Ri ght Arm] 121/75 Pulse Oximetry 89 Oxygen Delivery Me thod Room Air Oxygen Flow Rate Fraction of Inspir ed Oxygen Documenting provider has reviewed patient's vital signs: yes Labs Labs: Laboratory Results - last 24 hr 08/18/23 08/19/23 09:48 05:59 WBC 7.92 RBC 2.88 L Hgb 8.8 L Hct 28.5 L MCV 99 MCH 31 MCHC 31 L Plt Count 219 VBG pH 7.372 VBG pCO2 47 VBG pO2 44.6 VBG HCO3 27 Sodium 138 Potassium 3.8 Chloride 105 Carbon Dioxide 26 Anion Gap 7 BUN 53 H Creatinine 1.4 Estimated Creat Clear 29.80 Estimated GFR 39 Glucose 123 H Calcium 8.3 L Troponin I 0.16 H* Urine L. pneumophilia Ag L. pneumo Negative Urine Strep pneumoniae Ag S. pneumo Negative
[2023-08-19] MEDS: GUAIF/DM 200-20 MG/20 ML 118 ML LIQUID PO ×2 (14:46→21:31)
[2023-08-19 15:00] VITALS: BP 104/64; PULSE 74; RESP 18; TEMP 36.6; O2SAT 91; O2SAT 92
[2023-08-19] MEDS: cefTRIAXone 1 GM in 0.9 % SODIUM CHLORIDE Mini-bag 100 ML IVPB (17:08)
--- NOTE | 2023-08-19 18:52 | PC.NURSE ---
shift note; pt with persistent cough and unable to perform IS or eat. Pt received prn robitussin DM with cough decreasing. Ls remain course rhonchi & exp wheezing throughout. pt producing thick clr phlegm with cough. pt on RA with sats 90-92%. IV patent
[2023-08-19 19:00] VITALS: BP 100/66; PULSE 76; RESP 18; TEMP 36.4; O2SAT 94
[2023-08-20] VITALS (9 sets, daily range): BP systolic 102–129; BP diastolic 59–83; PULSE 63–83; RESP 18–22; TEMP 36.6–36.8; O2SAT 91–99
[2023-08-20 06:59] LABS: Hematocrit 28.9 % (33.0-51.0); Hemoglobin* 8.9 gm/dL (12.0-16.0); Mean Corpuscular HGB Conc 31 gm/dL (32-36); Mean Corpuscular Hemoglobin 31 pg (26-34); Mean Corpuscular Volume 99 fL (80-100); Platelet Count* 207 K/uL (140-440); Red Blood Count 2.92 m/uL (4.00-5.20); White Blood Count* 7.61 K/uL (4.50-11.00)
[2023-08-20 07:00] LABS: HCO3 VBG 27 mmol/L (21-28); PCO2 VBG 43 mmHG (40-50); pH VBG 7.407 (7.32-7.43)
[2023-08-20 07:20] LABS: Chloride* 108 mmol/L (96-114); Potassium* 3.7 mmol/L (3.6-5.1); Sodium* 140 mmol/L (135-149)
[2023-08-20 07:22] LABS: Creatinine* 1.3 mg/dL (0.5-1.5); Est. Creatinine Clearance* 32.09; Estimated Glomerular Filt Rate 42 ml/min
[2023-08-20 07:23] LABS: Anion Gap 7 mEq/L (7-15); Blood Urea Nitrogen* 50 mg/dL (7-30); Calcium* 7.9 mg/dL (8.4-10.6); Carbon Dioxide* 25 mmol/L (20-32); Glucose* 92 mg/dL (60-115)
[2023-08-20 07:31] LABS: Slide Review Reflex No
--- NOTE | 2023-08-20 07:31 | PC.NURSE ---
SHIFT NOTE -: Pt is pleasant, A&O. Oxygen saturations mid to high 90's on RA/CPAP. CPAP on at HS. PRN cough medicine given for productive cough, pt reported some relief. Denies pain, CP, and N/V. Pt reports that her SOB has improved but her cough has persisted/worsened. Up SBA with a walker, tolerating well. Tele reads afib.
[2023-08-20 07:43] LABS: Troponin I* 0.11 ng/mL (0.01-0.04)
[2023-08-20] MEDS: predniSONE 20 MG TABLET 40 MG PO (08:16)
[2023-08-20] MEDS: LEVOTHYROXINE 88 MCG TABLET 132 MCG PO (09:24)
[2023-08-20] MEDS: METOPROLOL SUCCINATE (XL) 25 MG TAB PO ×2 (09:24→20:29)
[2023-08-20] MEDS: buPROPion XL 150 MG TABLET 300 MG PO (09:24)
[2023-08-20] MEDS: IPRAT-ALBUT 0.5-2.5 MG/3 ML NEB 1 NEB IH ×4 (09:24→20:29)
[2023-08-20] MEDS: FERROUS SULFATE 325 MG TABLET 650 MG PO (09:25)
[2023-08-20] MEDS: OMEPRAZOLE 20 MG CAPSULE DR PO (09:25)
[2023-08-20] MEDS: CITALOPRAM HYDROBROMIDE 20 MG TABLET PO (09:25)
[2023-08-20] MEDS: POTASSIUM CHLORIDE 10 MEQ CAPSULE ER 20 MEQ PO (09:25)
[2023-08-20] MEDS: TORSEMIDE 20 MG TABLET 40 MG PO (09:25)
[2023-08-20] MEDS: APIXABAN 5 MG TABLET PO ×2 (09:25→20:30)
[2023-08-20] MEDS: SODIUM CHLORIDE 0.9 % (FLUSH) 10 ML SYRINGE 5 ML IVF ×2 (09:26→20:30)
[2023-08-20] MEDS: SACUBITRIL 24 mg/VALSARTAN 26 mg TABLET 1 TAB PO ×2 (09:45→20:29)
[2023-08-20] MEDS: AZITHROMYCIN 250 MG TABLET 500 MG PO (10:49)
--- NOTE | 2023-08-20 11:52 | P.IMPN_ITS ---
Progress Note: A&P Assessment and plan (1) Acute on chronic hypoxic respiratory failure: Problem details: Patient has chronic hypoxia occasionally requiring oxygen at home. This week she has had to use 3 L per nasal cannula and even with that was severely dyspneic. I believe the cause of this is primarily a respiratory infection without obvious pneumonia. Will nevertheless treat for community-acquired pneumonia with ceftriaxone and azithromycin and treat COPD exacerbation. Status: Acute (2) COPD exacerbation: Problem details: COPD diagnosis per [facility] is mild based on PFTs but clinically appears to have significant COPD today. Improving on nebulizer treatments with prednisone Status: Acute (3) KYLAH (acute kidney injury): Problem details: - I have reviewed previous labs. Patient's creatinine appears to be 1.7-2 at baseline. She had aggressive diuresis on admission, but Cr is stable at 1.3. I do not think this is KYLAH, rather CKD stage 3-4. Status: Ruled-out (4) Diastolic congestive heart failure, NYHA class 3: Problem details: Heart failure with preserved ejection fraction and mitral and tricuspid valvular disease is likely the main cause of her chronic dyspnea and hypoxia. She does not appear to be obviously volume overloaded now though she did tell me that she increase her torsemide to 60 mg b.i.d. for a few days prior to this admission. Resumed home heart failure medications. I do not think he has KYLAH. Resume usual dose of torsemide. Status: Chronic (5) Non-STEMI (non-ST elevated myocardial infarction): Problem details: Elevated troponin associated with current hypoxic respiratory failure. Trending down. No chest pain. No ischemic changes on EKG. I favor a stress-induced ischemia at this time Status: Acute (6) Atrial fibrillation: Problem details: Continue Eliquis, rate control with Metoprolol Status: Chronic (7) Pulmonary sarcoidosis: Problem details: Chronic, CT shows mild mediastinal lymphadenopathy. Does not appear to be the primary cause of acute dyspnea Status: Chronic (8) EDITH (obstructive sleep apnea): Problem details: -compliant with CPAP. follows with sleep medicine/[facility] Status: Chronic Plan Angi Chen is a 78 year old female past medical history significant for COPD, EDITH, CPAP use, CKD stage 4, diastolic congestive heart failure, rheumatoid arthritis, pulmonary sarcoidosis, atrial fibrillation on chronic anticoagulation, hypothyroidism, anemia in chronic kidney disease, splenic infarct is admitted to the medical floor from the ED for further management acute COPD exacerbation. Patient reports worsening shortness of breath and a productive cough over the last several days. She admits to fatigue and chills. She has had diarrhea for the last couple of days without vomiting. Admits to mild headaches. Denies dizziness. Denies chest pain. Admits to chest tightness with some wheezing. Uses oxygen as needed. Wears a CPAP nightly. Recent visit with [facility] 06/22/2023 for diastolic heart failure. Target dry weight was 147 lb at that time. Decided not to use an SGOT 2 based on emergency veterinary assistant recommendation. Worsening of her mitral valve and tricuspid regurgitation also noted on echo at that time. On AFib with rate control and anticoagulation. 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 Recent visit at [facility] with service counter cashier for sarcoidosis. She has chronic dyspnea with p.r.n. use of oxygen. Pulmonology thinks that this is multifactorial including cardiac/heart failure some mild COPD, deconditioning. Pulmonology did not think sarcoidosis was a primary contributor to her dyspnea. Obstructive sleep apnea on CPAP also noted. August 17: Since admission patient has been treated with steroids for COPD, antibiotics for infection and and IV furosemide for heart failure. She reports feeling better today. Still dyspneic at rest. Still requiring oxygen but reporting much better since admission. She had elevated troponins without chest pain. August 18: Patient reports that her breathing feels a little better today. Her cough is worse however. She reports nebulizer treatments are effective for her breathing as well as her cough. They work somewhat like an expectorant for her. Cough is occasionally productive of yellowish sputum. She is not aware of any fever. She has not had any chest pain. Her O2 sats have improved to the low 90s on room air. August 19: Increased cough, productive today with mild tachypnea, increased rhonchi. Satting well on RA. Will continue current cares and monitor yet overnight. Subjective Time Seen by Provider: 08:50 Date Seen: 08/20/23 Interval history: On room air today. She notes her cough is getting worse and now is more productive. She notes a history ever since she was a child that when she has a productive cough she will vomit if there is any phlegm that comes up. She has not had any emesis today. She feels that the nebulizer treatments are helpful and is hoping that it when she goes home she will have them available to her there. Exam Narrative: Exam Narrative: General: No acute distress. Awake, alert, oriented x3. Mild pallor. No jaundice. Oropharynx: Clear. Mucous membranes moist. Cardiovascular: Irregularly irregular. Grade 2/6 systolic murmur loudest at the left lower sternal border. Respiratory: Mildly tachypneic. Frequent wet cough. Diffuse upper airway sounds. Diffuse rhonchi, no crackles or wheezes. Prolonged expiratory phase present. Extremities: No pedal edema. Const: Vital Signs, click to edit/add: Vital Signs - 24 hr 08/19/23 15:00 08/19/23 15:00 08/19/23 15:00 Temperature Pulse Rate 74 Pulse Rate [Pulse Oximeter] 74 Respiratory Rate 18 Blood Pressure [Ri ght Arm] Pulse Oximetry 91 Oxygen Delivery Me thod Oxygen Flow Rate Fraction of Inspir ed Oxygen 08/19/23 15:00 08/19/23 19:00 08/20/23 00:00 Temperature 97.8 F 97.6 F Pulse Rate 74 Pulse Rate [Pulse Oximeter] 74 76 Respiratory Rate 18 18 Blood Pressure [Ri ght Arm] 104/64 100/66 Pulse Oximetry 92 94 Oxygen Delivery Me thod Room Air Room Air Oxygen Flow Rate 0.5 Fraction of Inspir ed Oxygen 30 08/20/23 00:00 08/20/23 00:00 08/20/23 00:00 Temperature 97.8 F Pulse Rate Pulse Rate [Pulse Oximeter] 74 74 Respiratory Rate 18 20 Blood Pressure [Ri ght Arm] 106/81 Pulse Oximetry 97 97 Oxygen Delivery Me thod CPAP Oxygen Flow Rate Fraction of Inspir ed Oxygen 08/20/23 03:00 08/20/23 07:00 08/20/23 07:00 Temperature 97.9 F Pulse Rate 83 Pulse Rate [Pulse Oximeter] 76 Respiratory Rate 22 Blood Pressure [Ri ght Arm] 129/83 Pulse Oximetry 99 93 Oxygen Delivery Me thod CPAP Oxygen Flow Rate Fraction of Inspir ed Oxygen 08/20/23 07:00 08/20/23 07:00 08/20/23 11:00 Temperature 98.0 F 98.0 F Pulse Rate Pulse Rate [Pulse Oximeter] 63 63 83 Respiratory Rate 20 20 20 Blood Pressure [Ok ght Arm] 102/73 114/64 Pulse Oximetry 93 94 Oxygen Delivery Me thod Room Air Room Air Oxygen Flow Rate 0.5 Fraction of Inspir ed Oxygen 30 Labs Labs: Laboratory Results - last 24 hr 08/20/23 06:10 WBC 7.61 RBC 2.92 L Hgb 8.9 L Hct 28.9 L MCV 99 MCH 31 MCHC 31 L Plt Count 207 VBG pH 7.407 VBG pCO2 43 VBG pO2 58.0 H VBG HCO3 27 Sodium 140 Potassium 3.7 Chloride 108 Carbon Dioxide 25 Anion Gap 7 BUN 50 H Creatinine 1.3 Estimated Creat Clear 32.09 Estimated GFR 42 Glucose 92 Calcium 7.9 L Troponin I 0.11 H*
[2023-08-20] MEDS: cefTRIAXone 1 GM in 0.9 % SODIUM CHLORIDE Mini-bag 100 ML IVPB (18:09)
--- NOTE | 2023-08-20 18:53 | PC.NURSE ---
End of Shift: Patient alert and oriented x4, VSS, on RA. Home CPAP to be used at night. Patient has a productive cough and able to clear phlegm in tissue. Using Aerobika PRN. Patient tolerating a reg diet. Indp. in and hallway.
[2023-08-21 03:47] VITALS: BP 115/69; PULSE 72; RESP 18; O2SAT 92
--- NOTE | 2023-08-21 06:10 | PC.NURSE ---
End of shift [id number]: A&O pleasant and cooperative. VSS w/ sats >90% on RA. Reports SOB with activity but denies at rest. SBA/Ind w/ walker and gait belt. CPAP at night. Using call light appropriately.?
[2023-08-21 06:30] LABS: HCO3 VBG 28 mmol/L (21-28); PCO2 VBG 42 mmHG (40-50); PO2 VBG 51.7 mmHG (25-47); pH VBG 7.434 (7.32-7.43)
[2023-08-21 06:40] LABS: Hematocrit 29.2 % (33.0-51.0); Mean Corpuscular HGB Conc 31 gm/dL (32-36); Mean Corpuscular Hemoglobin 30 pg (26-34); Mean Corpuscular Volume 99 fL (80-100); Platelet Count* 203 K/uL (140-440); Red Blood Count 2.96 m/uL (4.00-5.20)
[2023-08-21 06:43] LABS: Slide Review Reflex No
[2023-08-21 06:56] LABS: Chloride* 109 mmol/L (96-114); Sodium* 139 mmol/L (135-149)
[2023-08-21 06:57] LABS: Potassium* 3.4 mmol/L (3.6-5.1)
[2023-08-21 06:59] LABS: Anion Gap 4 mEq/L (7-15); Carbon Dioxide* 26 mmol/L (20-32); Creatinine* 1.2 mg/dL (0.5-1.5); Est. Creatinine Clearance* 34.77; Estimated Glomerular Filt Rate 46 ml/min
[2023-08-21 07:00] VITALS: BP 118/79; PULSE 66; PULSE 73; RESP 18; TEMP 36.7; O2SAT 95
[2023-08-21 07:00] LABS: Blood Urea Nitrogen* 54 mg/dL (7-30); Calcium* 7.7 mg/dL (8.4-10.6); Glucose* 83 mg/dL (60-115)
[2023-08-21 08:33] VITALS: RESP 20; O2SAT 94
[2023-08-21] MEDS: predniSONE 20 MG TABLET 40 MG PO (08:37)
[2023-08-21] MEDS: SACUBITRIL 24 mg/VALSARTAN 26 mg TABLET 1 TAB PO (08:37)
[2023-08-21] MEDS: LEVOTHYROXINE 88 MCG TABLET 132 MCG PO (08:38)
[2023-08-21] MEDS: IPRAT-ALBUT 0.5-2.5 MG/3 ML NEB 1 NEB IH ×2 (08:38→13:39)
[2023-08-21] MEDS: FERROUS SULFATE 325 MG TABLET 650 MG PO (08:38)
[2023-08-21] MEDS: METOPROLOL SUCCINATE (XL) 25 MG TAB PO (08:38)
[2023-08-21] MEDS: POTASSIUM CHLORIDE 10 MEQ CAPSULE ER 20 MEQ PO (08:38)
[2023-08-21] MEDS: APIXABAN 5 MG TABLET PO (08:39)
[2023-08-21] MEDS: TORSEMIDE 20 MG TABLET 80 MG PO (08:39)
[2023-08-21] MEDS: buPROPion XL 150 MG TABLET 300 MG PO (08:39)
[2023-08-21] MEDS: CITALOPRAM HYDROBROMIDE 20 MG TABLET PO (08:39)
[2023-08-21] MEDS: SODIUM CHLORIDE 0.9 % (FLUSH) 10 ML SYRINGE 5 ML IVF (08:47)
[2023-08-21] MEDS: OMEPRAZOLE 20 MG CAPSULE DR PO (08:47)
[2023-08-21] MEDS: AZITHROMYCIN 250 MG TABLET 500 MG PO (10:02)
--- NOTE | 2023-08-21 10:36 | RESP.RT ---
Patient up in chair, on room air, breathing regular/easy. Patient wore Own Home CPAP during night, slept good. Patient does not have Home Oxygen at this time. BBS with slight inspiratory wheeze, and musical coarse expiratory wheeze, greater in both bases with L>R. IS done with patient good effort, promoted good cough scant amount creme secretions. PEP with Aerobika done with patient Good effort, fair chest shake, promoted good cough for scant amount creme thick secretions.
[2023-08-21 12:19] VITALS: BP 105/67; PULSE 67; RESP 16; TEMP 36.7; O2SAT 94
--- NOTE | 2023-08-21 13:27 | P.DS_ITS ---
DS: Providers Provider Time Seen by Provider: 11:32 Date Seen: 08/21/23 Date of admission: 08/18/23 11:48 Primary care physician: Alcides Gonzalez MD Admitting Clinician: Giselle Mclaughlin MD Consults: 08/17/23 21:33 Consult to Respiratory Therapy [CONS] Routine Comment: Reason(s) for RT Consult:: Consult 08/19/23 Consult to Physical Therapy [CONS] Routine Comment: Reason(s) for PT Consult:: Evaluate and Treat Any Restrictions?:: No Restrictions Attending Physician on discharge: Beatrice Chan MD Date of Discharge: 08/21/23 DS: Diagnosis Discharge Diagnosis (1) KYLAH (acute kidney injury): Status: Ruled-out Problem details: - I have reviewed previous labs. Patient's creatinine appears to be 1.7-2 at baseline. She had aggressive diuresis on admission, but Cr is stable at 1.3. I do not think this is KYLAH, rather CKD stage 3-4. (2) Acute on chronic hypoxic respiratory failure: Status: Acute Problem details: Patient has chronic hypoxia occasionally requiring oxygen at home. This week she has had to use 3 L per nasal cannula and even with that was severely dyspneic. I believe the cause of this is primarily a respiratory infection without obvious pneumonia. Treated for community-acquired pneumonia with ceftriaxone and azithromycin and COPD exacerbation. 08/20 on RA. (3) COPD exacerbation: Status: Acute Problem details: COPD diagnosis per [facility] is mild based on PFTs but clinically appears to have significant COPD today. Improving on nebulizer treatments with prednisone (4) Diastolic congestive heart failure, NYHA class 3: Status: Chronic Problem details: Heart failure with preserved ejection fraction and mitral and tricuspid valvular disease is likely the main cause of her chronic dyspnea and hypoxia. She does not appear to be obviously volume overloaded now though she did tell me that she increase her torsemide to 60 mg b.i.d. for a few days prior to this admission. Resumed home heart failure medications. I do not think he has KYLAH. Resumed usual dose of torsemide with 08/21/23 am dose. (5) Non-STEMI (non-ST elevated myocardial infarction): Status: Acute Problem details: Elevated troponin associated with current hypoxic respiratory failure. Trending down. No chest pain. No ischemic changes on EKG. I favor a stress-induced ischemia at this time (6) Atrial fibrillation: Status: Chronic Problem details: Continue Eliquis, rate control with Metoprolol (7) Pulmonary sarcoidosis: Status: Chronic Problem details: Chronic, CT shows mild mediastinal lymphadenopathy. Does not appear to be the primary cause of acute dyspnea (8) EDITH (obstructive sleep apnea): Status: Chronic Problem details: -compliant with CPAP. follows with sleep medicine/[facility] DS: Summary Hospital Course Hospital Course: This is a 78-year-old female with history of COPD, EDITH for which she uses CPAP, CKD stage 4, diastolic heart failure, pulmonary circ [place], atrial fibrillation, chronic anticoagulation, hypothyroidism, anemia chronic disease, splenic infarct who presented through the ED for worsening shortness of breath, fatigue, and chills. She also had some diarrhea without vomiting and mild headache. She had been having to use her home oxygen more often than usual. She was started on azithromycin and ceftriaxone as well as methylprednisolone although CT showed mucous plugging and mild bronchial wall thickening bilaterally without consolidation. She has been improving, albeit slowly and although she needed oxygen at 1st, has been off oxygen for several days now. She is feeling much better today. She is discharged home in stable condition. I will continue cefdinir for a few more days as well as prednisone for 2 more days, but stop azithromycin as she has had a total of 2000 mg of that over the last 4 days. Please see diagnoses above for further details. Time Spent with Patient Time attestation: Total time spent providing and/or coordinating discharge services: Exam Narrative: Exam Narrative: General: No acute distress. Awake, alert, oriented x3. Mild pallor. No jaundice. Oropharynx: Clear. Mucous membranes moist. Cardiovascular: Irregularly irregular. Grade 2/6 systolic murmur loudest at the left lower sternal border. Respiratory: No respiratory distress. Cough is looser and less frequent today. Diffuse rhonchi, no crackles or wheezes. Prolonged expiratory phase present. Extremities: No pedal edema. Const: Vital Signs, click to edit/add: Vital Signs - 24 hr 08/20/23 15:00 08/20/23 15:00 08/20/23 15:00 Temperature Pulse Rate 73 Pulse Rate [Pulse Oximeter] 76 Respiratory Rate 20 Blood Pressure [Ri ght Arm] Pulse Oximetry 92 Oxygen Delivery Me thod 08/20/23 15:00 08/20/23 19:24 08/20/23 22:56 Temperature 98.0 F 98.3 F Pulse Rate Pulse Rate [Pulse Oximeter] 76 74 71 Respiratory Rate 20 18 18 Blood Pressure [Ri ght Arm] 107/67 104/61 103/59 L Pulse Oximetry 92 91 94 Oxygen Delivery Me thod Room Air Room Air CPAP 08/20/23 23:07 08/20/23 23:13 08/21/23 03:47 Temperature Pulse Rate 76 Pulse Rate [Pulse Oximeter] 72 Respiratory Rate 18 Blood Pressure [Ri ght Arm] 115/69 Pulse Oximetry 94 92 Oxygen Delivery Me thod CPAP 08/21/23 07:00 08/21/23 07:00 08/21/23 07:00 Temperature Pulse Rate 73 Pulse Rate [Pulse Oximeter] 66 Respiratory Rate 18 Blood Pressure [Ri ght Arm] Pulse Oximetry 95 Oxygen Delivery Me thod 08/21/23 07:00 08/21/23 08:33 08/21/23 12:19 Temperature 98.1 F 98.0 F Pulse Rate Pulse Rate [Pulse Oximeter] 66 67 Respiratory Rate 18 20 16 Blood Pressure [Ri ght Arm] 118/79 105/67 Pulse Oximetry 95 94 94 Oxygen Delivery Me thod Room Air Room Air Room Air DS: Data Data Completed and Pending Completed studies during hospitalization: 08/17/2023 EKG: Atrial fibrillation, 84 beats per minute, rightward axis, abnormal EKG. 08/17/2023 EKG: Atrial fibrillation, 93 beats per minute, rightward axis, abnormal EKG. Study: CT-Chest w/o-08/17/2023 6:18:19 PM Ordering Physician: Amy Cuello Final Report: INDICATION: Cough, fever, history of sarcoid. TECHNIQUE: CT chest without contrast. COMPARISON: August 18, 2021. FINDINGS: Lungs and pleura: Right apical scarring. Few scattered right upper lobe nodular opacities, measuring up to 9 millimeters (3/51). Mild mucous plugging in the bilateral lower lobes. Trace right pleural effusion.. No pleural thickening or pneumothorax. Heart and vasculature: Heart size is mildly enlarged. Prosthetic tricuspid valve. Thoracic aorta is normal in caliber. Main pulmonary artery is enlarged measuring up to 35 millimeters in diameter. Postsurgical changes at the anterior aorta. Lymph nodes/mediastinum: Mildly enlarged mediastinal lymph nodes measuring up to 12 millimeters in short axis.. Chest wall: No masses. Upper abdomen: No significant findings. Bones: Compression deformities in the mid and lower thoracic spine. Chronic fracture of the left posterior 8th rib. Sternotomy wires. IMPRESSION: 1. Mucous plugging and mild bronchial wall thickening bilaterally, may be from infectious or inflammatory etiology. 2. Trace right-sided pleural effusion. 3. Similar-appearing pulmonary nodules. 4. Mild mediastinal lymphadenopathy may be reactive or related to history of sarcoid. 5. Interval tricuspid valve replacement. Please note that all CT scans at this facility use dose modulation, iterative reconstruction, and/or weight-based dosing when appropriate to reduce radiation dose to as low as reasonably achievable. Dictated by Jamel Umanzor MD @ 08/17/2023 8:26:15 PM Signed by: Jamel Umanzor MD @08/17/2023 8:26:15 PM (Electronic Signature) Dictated By: Jamel Umanzor M.D. Signed By: 08/18/23 0709 DD/ 1826 TD/TT: 08/18/23 0708 Labs on day of discharge: Labs from last 24 hours 08/21/23 05:33 WBC 6.40 RBC 2.96 L Hgb 9.0 L Hct 29.2 L MCV 99 MCH 30 MCHC 31 L Plt Count 203 VBG pH 7.434 H VBG pCO2 42 VBG pO2 51.7 H VBG HCO3 28 Sodium 139 Potassium 3.4 L Chloride 109 Carbon Dioxide 26 Anion Gap 4 L BUN 54 H Creatinine 1.2 Estimated Creat Clear 34.77 Estimated GFR 46 Glucose 83 Calcium 7.7 L Preliminary micro results at discharge 08/17/23 15:40 Blood Culture - Preliminary Blood NO GROWTH AFTER 72 HOURS 08/17/23 18:50 Blood Culture - Preliminary Blood NO GROWTH AFTER 72 HOURS Discharge Plan Discharge Disposition: Home, Self-Care Date of Admission: 08/18/23 11:48 Attending Provider on Discharge: Beatrice Chan Primary Care Provider: Alcides Gonzalez Condition: Stable Anticipated Discharge Date/Time: 08/21/23 13:52 Discharge Medications: New prednisone 20 mg Tablet 40 mg PO DAILYWM 2 Days Qty: 4 0RF cefdinir 300 mg capsule 300 mg PO BID Qty: 10 0RF Continued apixaban 5 mg tablet 5 mg PO BID prednisone 5 mg tablet 5 mg PO DAILY ascorbic acid (vitamin C) 1,000 mg tablet 1,000 mg PO DAILY albuterol sulfate [Ventolin HFA] 90 mcg/actuation HFA aerosol inhaler 2 puff inhalation Q4-6H PRN fluticasone furoate-vilanterol [Breo Ellipta] 200-25 mcg/dose blister with device 1 inh inhalation DAILY bupropion HCl 300 mg tablet extended release 24 hr 300 mg PO QAM Qty: 90 3RF citalopram 20 mg tablet 20 mg PO DAILY Qty: 90 3RF omeprazole 20 mg capsule,delayed release(DR/EC) 20 mg PO DAILY Qty: 90 3RF leflunomide 10 mg tablet 10 mg PO DAILY hydroxychloroquine 200 mg tablet 400 mg PO QAM potassium chloride 20 mEq tablet extended release 20 meq PO DAILY levothyroxine [Synthroid] 137 mcg tablet 137 mcg PO DAILY Rx Instructions: no generic substitutions metoprolol succinate 25 mg tablet extended release 24 hr 25 mg PO BID ferrous sulfate 325 mg (65 mg iron) tablet 650 mg PO DAILY Entresto 24-26 mg tablet 1 tab PO BID torsemide 20 mg tablet 80 mg PO DAILY Qty: 270 1RF Patient Comments: 3 TABS QAM, EXTRA 1-2 TABS AT 2PM IF WEIGHT UP OR DYSPNEIC Rx Instructions: take 3 tabs every morning, take an extra 1-2tabs at 2pm if weight up or dyspneic Discharge Orders: Discharge Order (Routine); Ordered 08/21/23 Ordered By: Beatrice Chan Activity Level: No Restrictions Discharge Diet: Regular Follow Up Appointments: Alcides Gonzalez MD [Primary Care Provider] - (5-7 days) Forms: [facility] Info Instructions
--- NOTE | 2023-08-21 18:29 | PC.NURSE ---
Discharge: Patient alert and oriented x4. SOB w/exertion but tolerating aerobika and nebs. Patient denies N/V/SOB and pain. Patient tolerating a reg. diet. Patient discharge today to home accompanied by dtr. Patients IV removed intact. Patient signed belongings sheet and discharge instructions and verbalized understanding of instructions.
== END 2023-08-21 12:55 | disposition home or self-care (01) | DRG 189 ==
LOC: ED 19:49 → MEDSURG 20:06
PROVIDERS: Family Medicine; Physician Assistant; Admitting Provider Family Medicine; Emergency Provider Family Medicine; PCP Family Medicine; Visit Provider Family Medicine
DX: J96.21 Acute and chronic respiratory failure with hypoxia (principal); I21.A1 Myocardial infarction type 2; J18.9 Pneumonia, unspecified organism; J44.0 Chronic obstructive pulmonary disease with (acute) lower respiratory infection; I13.0 Hypertensive heart and chronic kidney disease with heart failure and stage 1 through stage 4 chronic kidney disease, or unspecified chronic kidney disease; I50.32 Chronic diastolic (congestive) heart failure; N18.4 Chronic kidney disease, stage 4 (severe); I48.20 Chronic atrial fibrillation, unspecified; J44.1 Chronic obstructive pulmonary disease with (acute) exacerbation; D63.1 Anemia in chronic kidney disease; I25.5 Ischemic cardiomyopathy; F32.A Depression, unspecified; M06.9 Rheumatoid arthritis, unspecified; E55.9 Vitamin D deficiency, unspecified; G47.33 Obstructive sleep apnea (adult) (pediatric); Z79.01 Long term (current) use of anticoagulants; D86.2 Sarcoidosis of lung with sarcoidosis of lymph nodes
CPT/HCPCS: 36415; 71250; 80048; 81001; 82803; 83735; 83880; 84145; 84484; 85025; 85027; 87040; 87086; 87449; 87631; 87899; 93005; 94640; 94660; 94664; 94761; 97116; 97161; 97165; 99285; G0378; A9270; J0456; J0696; J1940; J2919; J7030; J7050; J7512

== ENCOUNTER 2023-12-24 13:39 | Outpatient (CLI) | payer OTHER, SELFPAY ==
--- OUTSIDE RECORDS SUMMARY | 2023-12-26 10:12 | XMS_ITS | Encounter Summary ---
Author Organization [facility] Address [address] [place] [id number] Care Team Providers Care Watch [employer] Grinder Name Role Phone Elsewhere, Pcp Primary Care Provider Unavailabl e Reason for Visit * Reason Onset Date Comments Eye Exam 12/23/2023 Encounter Details Date Type Department Care Team (Late st Contact Info) Description 12/23/2023 Clinical Communication Division of Rheumatology in [place], [place] [address] [place] [phone] Rosa Bolton, DIPAK, C.N.P., M.S. [address] [place] [phone] Eye Exam Social History Tobacco Use Types Packs/Day Years [...] often do you attend chur ch or anglican services? More than 4 times per year [...] Answer Date Recorded PHQ-2 Score 3 09/24/2021 [facility] - Occupational [...] encounter Miscellaneous Notes * Telephone Encounter - Ana Pisano R.N. - 12/23/2023 8:48 AM CDT Received patient's Plaquenil eye exam from [facility]. Exam performed on 09/09/2023. No Plaquenil toxicity noted on examination, next eye exam due in 1 year. Exam sent to scanning. documented in this encounter Plan of Treatment Upcoming Encounters Date Type Department Care Team (Latest Contact Info) Description 02/21/2024 1:00 PM CDT Clinical Communication Virtual Review in [place], [place] [address] [place] [phone] 02/23/2024 12:00 PM CDT Ancillary Procedure Department of Cardiovascular Medicine in [place], [place] [address] [place] [phone] Eloy Cabrera M.D. [address] [place] [phone] 02/23/2024 12:30 PM CDT Appointment Department of Laboratory Medicine and Pathology, [facility] in [place], [place] [address] [place] [phone] Eloy Cabrera M.D. [address] [place] [phone] 02/23/2024 1:00 PM CDT Diagnostic Division of Pulmonary Medicine in [place], [place] [address] [place] [phone] Eloy Cabrera M.D. [address] [place] [phone] 02/23/2024 2:15 PM CDT Appointment Department of Radiology, [facility] in [place], [place] [address] [place] [phone] Eloy Cabrera M.D. [address] [place] [phone] 02/23/2024 3:00 PM CDT Office Visit Division of Pulmonary Medicine in [place], [place] [address] [place] [phone] Taiwo Mike M.D. [address] [place] [phone] documented as of this encounter Visit Diagnoses Not on filedocumented in this encounter Additional Health Concerns Assessment Noted Time PHQ-9 Depression Total Score: 10 09/24/ 022 2:00 PM CDT documented as of this encounter Care Teams Watch [employer] Grinder Relationship Specialty Start Date End Date Elsewhere, Pcp PCP - General Internal Medicine 04/08/22 documented as of this encounter
--- OUTSIDE RECORDS SUMMARY | 2023-12-26 10:12 | XMS_ITS | Referral Summary ---
Author Organization [facility] Address [address] [place] [address] Care Team Providers Care Fast Food Cook Name Role Phone Elsewhere, Pcp Primary Care Provider Unavailabl e Source Comments Patient records contain information from all sites at [facility]. For routine questions regarding patient records, call [phone] during business hours, M-F 8:00 AM - 5:00 PM Central Time. Record requests for emergency care only can be directed to [phone] at any time.[facility] Encounters Date Type Department Care Team Description 12/23/2023 Clinical Communication Division of Rheumatology in [place], [place] [address] [place] [phone] Rosa Bolton APRN C.N.P., M.S. Eye Exam 12/20/2023 Refill Department of Cardiovascular Medicine in [place], [place] [address] [place] [phone] Emi Wilson APRN, C.N.P., M.S., M.S.N. Med Refill 12/12/2023 Refill Division of Rheumatology in [place], [place] [address] [place] [phone] Rosa Bolton APRN, C.N.P., M.S. Med Refill 11/18/2023 Refill Division of Rheumatology in [place], [place] [address] [place] [phone] Rosa Bolton APRN, C.NChel., M.S. Med Refill 10/28/2023 Refill Division of Pulmonary Medicine in [place], [place] [address] [place] [address] Eloy Cabrera M.D. Med Refill from Last 3 Months Allergies Active Allergy Reactions Criticality Noted Date Comments Gabapentin Rash Medium 09/18/2020 Hydrocodone-Acetaminophen GI intolerance Medium 2006 Nausea L-Thyroxine Itching Medium 05/12/2010 And boils/blistering Medications Medication Sig Dispensed Refills Start Date End Date Status iron,carbonyl-vi tamin C (VITRON-C) 65 mg iron- [address] tablet Take 1 tablet by mouth daily. 7 Active buPROPion XL (WELLBUTRIN XL) 300 mg 24 hr tablet Take 1 tablet by mouth daily. 7 Active citalopram (CeleXA) 20 mg tablet Take 20 mg by mouth daily. 4 Active acetaminophen (TYLENOL) 500 mg tablet Take 2 tablets (1,000 mg total) by mouth every 6 (six) hours as needed for mild pain or score 1-3 of 10, moderate pain or score 4-6 of 10, headaches or fever. 2 Active omeprazole (PriLOSEC) [address] capsule Take 20 mg by mouth daily. In the morning 2 Active multivitamin-iro n-XC-Xr-minerals (THERAPEUTIC-M) 400 mcg (folic acid) per tablet Take 1 tablet by mouth daily. 2 Active saliva substitution (BIOTENE DRY MOUTH ORAL RINSE) mouthwash Apply 1 application to the mouth or throat as needed (dry mouth). 2 Active loperamide (IMODIUM A-D) 2 mg capsule Take 1 capsule (2 mg total) by mouth 3 (three) times a day as needed for diarrhea. 2 Active fluticasone propionate (FLONASE) 50 mcg/actuation nasal spray Administer 2 sprays into each nostril daily. Active epoetin tu (EPOGEN,PROCRIT) 10,000 Unit/mL injection Inject under the skin every 14 (fourteen) days. Unsure how many units Active cyanocobalamin (VITAMIN B12) 250 mcg tablet Take 250 mcg by mouth daily. Will check dosage Active folic acid 1 mg tablet Take 1 mg by mouth daily. Will check dosage Active DME CPAPIndications: Apnea Sleep Obstructive DME Order 1 each 3 Active Ventolin HFA 90 mcg/actuation inhalerIndicatio ns:Dyspnea On Exertion,Chronic Obstructive Pulmonary Disease (HCC) Inhale 2 puffs every 4 (four) hours as needed for shortness of breath or wheezing. Doesn't take very often 8 g 3 3 Active predniSONE (DELTASONE) 5 mg tabletIndication s:Arthritis Rheumatoid (HCC) Take 1 tablet (5 mg total) by mouth daily. Continue through 12/01/2021. 90 tablet 3 3 Active levothyroxine (SYNTHROID, LEVOTHROID) 137 mcg tablet Take 137 mcg by mouth every morning before breakfast. Active hydroxychloroqui ne (PLAQUENIL) 200 mg tabletIndication s:Arthritis Rheumatoid (HCC) Take 2 tablets (400 mg total) by mouth every morning. Updated eye exam needed on file 180 tablet 1 4 Active metoprolol succinate (TOPROL-XL) 25 mg 24 hr tablet TAKE 1 TABLET TWICE DAILY DO NOT CRUSH OR CHEW. 180 tablet 3 4 Active Eliquis 5 mg tablet take 1 tablet twice daily 180 tablet 3 4 Active potassium chloride (K-TAB) 20 mEq CR tablet Take 1 tablet (20 mEq total) by mouth as directed. Uses one with every torsemide, often takes 2 per day 120 tablet 3 4 09/14/19 25 Active DME CPAPIndications: Obstructive Sleep Apnea Adult DME Order 1 each 4 Active Breo Ellipta 200-25 mcg/dose inhalerIndicatio ns:Dyspnea On Exertion,Chronic Obstructive Pulmonary Disease (HCC) INHALE 1 PUFF EVERY DAY 180 each 3 4 Active leflunomide (Arava) 10 mg tabletIndication s:Arthritis Rheumatoid (HCC) Take 1 tablet (10 mg total) by mouth as directed. TAKE EVERY DAY WEDNESDAY-WEDNESDAY DIRECTED (NO MEDICATION ON WEDNESDAY OR WEDNESDAY). REMINDER LABS ARE DUE EVERY 3 MONTHS. 60 tablet 4 Active torsemide (Demadex) 20 mg tablet Take 3 tablets (60 mg total) by mouth daily. 270 tablet 3 4 Active spironolactone (ALDACTONE) 25 mg tablet Take 1 tablet (25 mg total) by mouth daily. 90 tablet 3 2 09/05/19 22 Discontinued dilTIAZem (DILACOR XR/DILT-XR) 120 mg ER capsule Take 120 mg by mouth daily. 2 11/01/19 22 Discontinued ferrous sulfate 325 mg (65 mg iron) tablet 325 mg of iron daily. 11/01/19 22 Discontinued ipratropium-albu teroL (DUONEB) 0.5-2.5 mg/3 mL nebulizer solution Inhale 3 mL by nebulization 4 (four) times a day. 180 mL 11 2 11/14/19 22 Discontinued torsemide (DEMADEX) 20 mg tablet Take 3 tablets (60 mg total) by mouth daily. 270 tablet 3 3 12/20/19 24 Discontinued(Re order) Active Problems Problem Noted Date Diagnosed Date Sarcoidosis 09/14/2023 Chronic Obstructive Pulmonary Disease 06/01/2023 Chronic Kidney Disease Stage 4 Glomerular Filtration Rate 15-06/08/2022 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 Anemia Of Chronic Renal Disease 06/08/2022 Debility 10/31/2021 Colitis Collagenous 10/31/2021 Hypothyroidism 10/31/2021 Cardiac Surgery Status Post 10/22/2021 Overview (10/22/2021): 10/07/2021 MVR, TV repair, LAAL Diarrhea 10/22/2021 Retained Metal Fragments 10/21/2021 Overview (10/22/2021): Epicardial pacing wires, cut at skin level Wound Nasal Septum Open Initial 10/15/2021 Pneumonia 10/12/2021 Delirium Acute 10/09/2021 Replacement Mitral Valve Tissue 10/07/2021 Repair Tricuspid Valve Status Post 10/07/2021 Anticoagulant Therapy 10/07/2021 Therapy Senior Care Antiplatelet 10/07/2021 Anemia Posthemorrhagic Acute (Blood Loss Anemia) 10/07/2021 Azotemia 10/07/2021 Postprocedural Hypertension 10/07/2021 Leukocytosis 10/07/2021 Dyspnea Multifactorial 09/24/2021 Non-ST Elevation Myocardial Infarction Arthroplasty Total Knee Replacement Status Post Right 09/24/2021 Thyroidectomy Status Post 09/24/2021 Anemia Iron Deficiency 09/24/2021 Nodules Pulmonary Multiple 09/24/2021 Depression 09/24/2021 Gastroesophageal Reflux Disease NOS 09/24/2021 Hypotension 09/24/2021 Osteoarthritis 09/24/2021 Pain Chest 08/31/2021 Acute Diastolic (Congestive) Heart Failure 11/17 Overview (11/17/2018): Added automatically from request for surgery [id number] Apnea Sleep Obstructive 12/13/2017 Overweight Body Mass Index 25-29.9 Adult 018 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 Acute On Chronic Diastolic (Congestive) Heart Fa ilure 11/19/2016 Angiodysplasia Of Stomach And Duodenum Without B leeding 07/31/2013 Atrial Fibrillation Unspecified 06/16/2013 Arthritis Rheumatoid 11/21/2010 Hypertensive Heart And Chron ic Kidney Disease With Heart Failure And Stage 1 To 4 Chronic Kidney Disease Or Unspecified Chronic Kidney Disease 11/17/2006 Resolved Problems Problem Noted Date Diagnosed Date Resolved Date Epistaxis 10/26/2021 10/31/2021 Hypokalemia 10/14/2021 10/22/2021 Rhythm Junctional 10/14/2021 10/22/2021 Sepsis Due To Serratia 10/13/202110/22 Acute Respiratory Failure With Hypoxia 10/13/2021 10/22/2021 Regurgitation Mitral 10/07/2021 022 Hyperglycemia 10/07/2021 10/22/2021 Failure Renal Acute With Tubular Necrosis 10/07/2021 09/14/2023 Acidosis Lactic 10/07/2021 10/19/2021 Shock Cardiogenic Postoperative Initial 10/07/2021 10/19/2021 Hyperkalemia 10/07/2021 10/22/2021 Chronic Kidney Disease (CKD) , Stage 3b Glomerular Filtration Rate (GFR) 30 To 44 09/01/2021 10/20/2022 Bacteremia 08/19/2021 10/22/2021 Regurgitation Tricuspid 11/17/201810/08 Overview (11/17/2018): Added automatically from request for surgery [id number] Chronic Diastolic (Congestive) Heart Failure 3 09/24/2021 Immunizations Name Administration Dates Next Due HZV (ZOSTAVAX) 05/10/2010 Influenza Split 02/07/2013,02/08/2012 PPSV23 02/09/2011 Td, (Adult) Unspecified 05/12/2010 influenza high [...] How often do you attend chur or episcopalian services? More than 4 times per year 03/27/2022 Do you belong to any clubs o r organizations such as amish groups, unions, fraternal or athletic groups, or [...] Answer Date Recorded PHQ-2 Score 3 09/24/2021 [facility] - Occupational [...] place to sleep or slept in a assisted (including now)? No 03/27/2022 Depression Answer Date [...] Sign Reading Time Taken Comments Blood Pressure 120/70 09/14/2023 2:43 PM CDT Pulse 65 09/14/2023 2:43 PM CDT Temperature 36.3 ??C (97.3 ??F) 11/14/2021 5:40 AM CD T Respiratory Rate 20 07/02/2023 10:39 AM SAND BLASTER Oxygen Saturation 93% 07/09/2023 1:50 PM SAND BLASTER Inhaled Oxygen Concentration - - Weight 69.9 kg (154 lb 1.6 oz) 09/14/2023 2:43 P M CDT Height 165 cm (5' 4.96) 09/14/2023 2:43 PM CDT Body Mass Index 25.67 09/14/2023 2:43 PM CDT Plan of Treatment Upcoming Encounters Date Type Department Care Team (Latest Contact Info) Description 02/21/2024 1:00 PM CDT Clinical Communication Virtual Review in [place], [place] [address] [place] [address] 02/23/2024 12:00 PM CDT Ancillary Procedure Department of Cardiovascular Medicine in [place], [place] [address] [place] [phone] Eloy Cabrera M.D. [address] [place] [phone] 02/23/2024 12:30 PM CDT Appointment Department of Laboratory Medicine and Pathology, [facility] in [place], [place] [address] [place] [phone] Eloy Cabrera M.D. [address] [place] [phone] 02/23/2024 1:00 PM CDT Diagnostic Division of Pulmonary Medicine in [place], [place] [address] [place] [address] Eloy Cabrera M.D. [address] [place] [phone] 02/23/2024 2:15 PM CDT [facility] [place] [place] [address] [place] [phone] Eloy Cabrera M.D. [address] [place] [phone] 02/23/2024 3:00 PM CDT Office Visit Division of Pulmonary Medicine in [place], [place] [address] [place] [phone] Taiwo Mike M.D. [address] [place] [phone] Medical Devices Implanted Type Area Assistant Community Manager Device Identifier Shelf Expiration Date Model / Serial / Lot Rng Anulo Mtrl Cnt Trcspd 30 - [id number] - [id number] Implanted:Qty: 1 on 10/07/2021 by Clarence Gee M.D. at [facility] Cardiac Valve Prosthesis N/A: Tricuspid Valve Medtronic 05/18/2026 [id number] / [id number] / Vlv Mtrl [facility] Tiss 29 - [id number] - [id number] Implanted:Qty: 1 on 10/07/2021 by Clarence Gee M.D. at [facility] Cardiac Valve Prosthesis N/A: Mitral Valve Emerson 11/27/2024 E100-29 M-00 / [id number] / Clp Hrzn Ti 6 Clp Md Rhett - [id number] Implanted:Qty: 1 on 10/07/2021 by Clarence Gee M.D. at [facility] Hardware e.g. pins/screws/ rods N/A: Chest [employer] [id number] / / J J Tib Insert Sigma 4x10.0 - [place] [id number] Implanted:Qty: 1 on 11/22/2006 Knee Implant Other/Legacy - See Implant Description [employer] Description:Device Manufactu rer - J [employer] J Ortho. Body Location - Other. Left. Device Status Text - KNEE [id number]. J J Sig Patella Oval 35 - [place] [id number] Implanted:Qty: 1 on 11/22/2006 Knee Implant Other/Legacy - See Implant Description [employer] Description:Device Manufactu rer - J [employer] Orth[employer]. Body Location - Other. Left. Device Status Text - KNEE [id number]. J J Sig Fem Lugged Sz 4.0 Lt - [place] [id number] Implanted:Qty: 1 on 11/22/2006 Knee Implant Other/Legacy - See Implant Description [employer] Description:Device Manufactu rer - J [employer] J Ortho. Body Location - Other. Left. Device Status Text - KNEE [id number]. J J Keel Tray Tib Mb Sz 3.0 - [place] [id number] Implanted:Qty: 1 on 11/22/2006 Knee Implant Other/Legacy - See Implant Description [employer] Description:Device Manufactu rer - J [employer] J Ortho. Body Location - Other. Left. Device Status Text - KNEE [id number]. Misc Other Misc Other Mouth Description:3 lower teeth im planted Misc Other Misc Other Mouth Description:2 teeth implants 2020 Cement Bone Large - [place] [id number] Implanted:Qty: 1 on 11/22/2006 Misc Other [place] Description:Device Manufactu rer - Jessica Le.. Device Status Text - [id number]. Procedures Procedure Name Priority Date/Time Associated Diagnosis Comments POTASSIUM, S/P Routine 09/09/2023 CREATININE WITH EGFR, S/P Routine 09/09/2023 COMPREHENSIVE METABOLIC PANEL, S/P Routine 07/09/2023 2:54 PM SAND BLASTER Sarcoidosis Pulmonary (HCC) THYROID FUNCTION CASCADE, S Routine 09/02/2021 3:51 PM CDT from Last 3 Months or Most Recently Relevant to Health Maintenance Results * Potassium (09/09/2023) [facility] EXT Potassium 4.3 3.6 - 5.1 [facility] Blood (Blood, Venous) Tristian Thompson APRN.N.P., M.S. LAB BLOOD ADD-ON Performing Organization Address City/[facility] Co de Phone Number [facility] [address] [place] [address] * Creatinine with Estimated GFR (09/09/2023) [facility] EXT Estimated GFR (eGFR) 35 [facility] EXT Creatinine 1.5 0.5 - 1.5 mg/dL [facility] Blood (Blood, Venous) Tristian Thompson APRN.N.P., M.S. LAB BLOOD ADD-ON Performing Organization Address [facility]/ZIP Co de Phone Number [facility] [address] [place] [address] * (ABNORMAL) Comprehensive Metabolic Panel (07/09/2023 2:54 PM SAND BLASTER) [facility] Potassium, S 5.2 3.6 - 5.2 mmol/L 07/09/2023 4:08 PM SAND BLASTER DTL Sodium, S 142 135 - 145 mmol/L 07/09/2023 4:08 PM SAND BLASTER DTL Chloride, S 101 98 - 107 mmol/L 07/09/2023 4:08 PM SAND BLASTER DTL Bicarbonate, S 27 22 - 29 mmol/L 07/09/2023 4:08 PM SAND BLASTER DTL Anion Gap 14 7 - 15 07/09/2023 4:08 PM SAND BLASTER DTL BUN (Blood Urea Nitrogen), S 70(H) 6 - 21 mg/dL 07/09/2023 4:08 PM SAND BLASTER DTL Creatinine 2.00(H) 0.59 - 1.04 mg/dL 07/09/2023 4:08 PM SAND BLASTER DTL Estimated GFR (eGFR) 25(L) >=60 mL/min/BS A 07/09/2023 4:08 PM SAND BLASTER DTL Comment: Estimated GFR calculated using the 2020 CKD_EPI creatinine equation. Calcium, Total, S 9.2 8.8 - 10.2 mg/dL 07/09/2023 4:08 PM SAND BLASTER DTL Glucose, S 108 70 - 140 mg/dL 07/09/2023 4:08 PM SAND BLASTER DTL Protein, Total, S 7.3 6.3 - 7.9 g/dL 07/09/2023 4:08 PM SAND BLASTER DTL Albumin, S 4.6 3.5 - 5.0 g/dL 07/09/2023 4:08 PM SAND BLASTER DTL Aspartate Aminotransferase (AST), S 27 8 - 43 U/L 07/09/2023 4:08 PM SAND BLASTER DTL Alkaline Phosphatase, S 210(H) 35 - 104 U/L 07/09/2023 4:08 PM SAND BLASTER DTL Alanine Aminotransferase (ALT), S 26 7 - 45 U/L 07/09/2023 4:08 PM SAND BLASTER DTL Bilirubin, Total, S 0.8 0.0 - 1.2 mg/dL 07/09/2023 4:08 PM SAND BLASTER DTL Blood (Blood, Venous) 07/09/2023 2:54 PM SAND BLASTER 07/09/2023 3:19 PM SAND BLASTER Eloy Cabrera M.D. LAB BLOOD ADD-ON Performing Organization Address City/[facility]/ZIP Co de Phone Number [facility] [address] [place] [address] * Thyroid Function [place] (09/02/2021 3:51 PM CDT) TSH, Sensitive 2.0 0.3 - 4.2 mIU/L 09/02/2021 4:46 PM CDT DTL Blood (Blood, Venous) 09/02/2021 3:51 PM CDT 09/02/2021 4:21 PM CDT Nina Mora P.A.-C., M.S. LAB BLO OD ADD-ON Performing Organization Address City/[facility] Co de Phone Number [address] [address] from Last 3 Months or Most Recently Relevant to Health Maintenance Advance Directives For more information, please contact: [phone] Documents on File Type Date Recorded Patient Commissioning Editor Expl anation Advance Directives 11/26/2006 12:00 AM [...] Answer Comments Full Code: Discussed Care Teams Fast Food Cook Relationship Specialty Start Date End Date Elsewhere, Pcp PCP - General Internal Medicine 04/08/22
--- OUTSIDE RECORDS SUMMARY | 2023-12-26 10:12 | XMS_ITS | Clinical Summary ---
Author Organization [facility] Address [address] [place] [address] Care Team Providers Care Trimmer Tailer Name Role Phone Elsewhere, Pcp Primary Care Provider Unavailabl e Source Comments Patient records contain information from all sites at [facility]. For routine questions regarding patient records, call [phone] during business hours, M-F 8:00 AM - 5:00 PM Central Time. Record requests for emergency care only can be directed to [phone] at any time.[facility] Allergies Active Allergy Reactions Criticality Noted Date [...] daily. In the morning 2 Active multivitamin-iro l-XL-Jp-minerals (THERAPEUTIC-M) 400 mcg (folic acid) per tablet [...] Status Post 10/07/2021 Anticoagulant Therapy 10/07/2021 Therapy Sales Representative Door To Door Antiplatelet 10/07/2021 Anemia Posthemorrhagic Acute (Blood Loss [...] (11/17/2018): Added automatically from request for surgery [id number] Apnea Sleep Obstructive 12/13/2017 Overweight Body Mass [...] (11/17/2018): Added automatically from request for surgery [id number] Chronic Diastolic (Congestive) Heart Failure 3 09/24/2021 Encounters Date Type Department Care Team Description 12/23/2023 Clinical Communication Division of Rheumatology in [place], [place] [address] [place] [phone] Rosa Bolton APRN, C.N.P., M.S. Eye Exam 12/20/2023 Refill Department of Cardiovascular Medicine in [place], [place] [address] [place] [phone] mEi Wilson APRN, C.N.P., M.S., M.S.N. Med Refill 12/12/2023 Refill Division of Rheumatology in [place], [place] [address] [place] [phone] Rosa Bolton APRN, C.N.P., M.S. Med Refill 11/18/2023 Refill Division of Rheumatology in [place], [place] [address] [place] [phone] Rosa Bolton APRN C.N.P., M.S. Med Refill 10/28/2023 Refill Division of Pulmonary Medicine in [place], [place] [address] [place] [address] Eloy Cabrera M.D. Med Refill from Last 3 Months Immunizations Name Administration [...] often do you attend chur ch or mandaen services? More than 4 times per year 03/27/2022 Do you belong to any clubs o r organizations such as caodaism groups, unions, fraternal or athletic groups, or [...] Answer Date Recorded PHQ-2 Score 3 09/24/2021 [facility] Occupat ional Health - [...] to sleep or slept in a senior living (including now)? No 03/27/2022 Depression Answer Date [...] T Respiratory Rate 20 07/02/2023 10:39 AM MIS SPECIALIST Oxygen Saturation 93% 07/09/2023 1:50 PM MIS SPECIALIST Inhaled Oxygen Concentration - - Weight 69.9 kg (154 lb 1.6 oz) 09/14/2023 2:43 P M CDT Height 165 cm (5' 4.96) 09/14/2023 2:43 PM CDT Body Mass Index 25.67 09/14/2023 2:43 PM CDT Plan of Treatment Upcoming Encounters Date Type Department Care Team (Latest Contact Info) Description 02/21/2024 1:00 PM CDT Clinical Communication Virtual Review in [place], [place] 200 [place] [address] 02/23/2024 12:00 PM CDT Ancillary Procedure Department of Cardiovascular Medicine in [place], [place] [address] [place] [phone] Eloy Cabrera M.D. [address] [place] [phone] 02/23/2024 12:30 PM CDT Appointment Department of Laboratory Medicine and Pathology, [facility] in [place], [place] [address] [place] [phone] Eloy Cabrera M.D. [address] [place] [phone] 02/23/2024 1:00 PM CDT Diagnostic Division of Pulmonary Medicine in [place], [place] [address] [place] [phone] Eloy Cabrera M.D. [address] [place] [phone] 02/23/2024 2:15 PM CDT Appointment Department of Radiology, [facility], in [place], [place] [address] [place] [phone] Eloy Cabrera M.D. [address] [place] [phone] 02/23/2024 3:00 PM CDT Office Visit Division of Pulmonary Medicine in [address] [phone] Taiwo Mike M.D. [address] [place] [phone] Health Maintenance Due Date Last Done Comments Thyroid Stimulating Hormone (TSH) test for thyroid function 09/02/2022 09/02/2021, 12/27/2019, 10/28/2018, Additional history exists COVID-19 Vaccine (2022-2 4 season) 2023 02/15/2023, 02/15/2023, 03/06/2022, Additional history exists Depression Screening (Annual PHQ-2) 05/10/2023 Hydroxychloroquine (PLAQUENI L) Annual Exam 12/24/2023 Influenza Vaccine (#1) 2024 , 02/09/2022, 02/18/2021, Additional history exists Sodium Level 07/08/2024 07/09/2023, 06/21/2023, 10/22/2022, Additional history exists Creatinine Level (Kidney Function Test) 09/08/2024 09/09/2023, 07/09/2023, 06/21/2023, Additional history exists Potassium Level 09/08/2024 09/09/2023, 07/09/2023, 06/21/2023, Additional history exists Office Visit for Blood Pressure Check / Re-check 09/13/2024 09/14/2023 DTaP,Tdap,and Td Vaccines (5 - Td or Tdap) 06/06/2030 06/06/2020, 05/12/2010, 02/26/2009, Additional history exists Mammogram Discontinued 03/16/2014 (Perf ormed elsewhere), 03/10/2011 (Performed elsewhere), 01/19/2008 (Performed elsewhere) Pneumococcal vaccine (65+ years) Completed 10/09/2014, 02/09/2011, 01/19/2011, Additional history exists Zoster Vaccines Completed 05/06/2020, 02/29/2020, 01/19/2011, Additional history exists Fall Risk Screen (Annual) Completed 07/02/2023 HPV Vaccines Aged Out No longer eligi ble based on patient's age to complete this topic Medical Devices Implanted Type Area Acute Dialysis Registered Nurse Device Identifier Shelf Expiration Date Model / Serial / Lot Rng Anulo Mtrl Cnt Trcspd 30 - [id number] - [id number] Implanted:Qty: 1 on 10/07/2021 by Clarence Gee M.D. at [facility] Cardiac Valve Prosthesis N/A: Tricuspid Valve Medtronic 05/18/2026 [id number] / [id number] / Vlv Mtrl [facility] 29 - [id number] - [id number] Implanted:Qty: 1 on 10/07/2021 by Clarence Gee M.D. at [facility] Cardiac Valve Prosthesis N/A: Mitral Valve Emerson 11/27/2024 [id number] M-00 / [id number] / Clp Hrzn Ti 6 Clp [facility]ly [facility] - [id number] Implanted:Qty: 1 on 10/07/2021 by Clarence Gee M.D. at [facility] Hardware e.g. pins/screws/ rods N/A: Chest [employer] [id number] / / J J Tib Insert Sigma 4x10.0 - [place] [id number] Implanted:Qty: 1 on 11/22/2006 Knee Implant Other/Legacy - See Implant Description [employer] Description:Device Manufactu rer - J [employer] J Ortho. Body Location - Other. Left. Device Status Text - [id number] [id number]. J J Sig Patella Oval 35 - [place]ichael [id number] Implanted:Qty: 1 on 11/22/2006 Knee Implant Other/Legacy - See Implant Description [employer] Description:Device Manufactu rer - J & J Ortho. Body Location - Other. Left. Device Status Text - [id number] [id number]. J J Sig Fem Lugged Sz 4.0 Lt - [place]ichael [id number] Implanted:Qty: 1 on 11/22/2006 Knee Implant Other/Legacy - See Implant Description [employer] Description:Device Manufactu rer - J & J Ortho. Body Location - Other. Left. Device Status Text - KNEE [id number]. J J Keel Tray Tib Mb Sz 3.0 - [place]ichael [id number] Implanted:Qty: 1 on 11/22/2006 Knee Implant Other/Legacy - See Implant Description [employer] Description:Device Manufactu rer - J & J Ortho. Body Location - Other. Left. Device Status Text - KNEE [id number]. Misc Other Misc Other Mouth Description:3 lower teeth im planted Misc Other Misc Other Mouth Description:2 teeth implants 2020 Cement Bone Large - [place] [id number] Implanted:Qty: 1 on 11/22/2006 [facility] Other [place] Description:Device Manufactu rer - Jessica Le.. Device Status Text - [id number]. Procedures Procedure Name Priority Date/Time Associated Diagnosis Comments POTASSIUM, S/P Routine 09/09/2023 CREATININE WITH EGFR, S/P Routine 09/09/2023 COMPREHENSIVE METABOLIC PANEL, S/P Routine 07/09/2023 2:54 PM MIS SPECIALIST Sarcoidosis Pulmonary (HCC) THYROID FUNCTION CASCADE, S Routine 09/02/2021 3:51 PM CDT from Last 3 Months or Most Recently Relevant to Health Maintenance Results * Potassium (09/09/2023) Pathologist [facility] EXT Potassium 4.3 3.6 - 5.1 [facility] Blood (Blood, Venous) Tristian Thompson APRN.N.P., M.S. LAB BLOOD ADD-ON Performing Organization Address City/[facility]/ZIP Co de Phone Number [facility] [address] [place] [address] * Creatinine with Estimated GFR (09/09/2023) [facility] EXT Estimated GFR (eGFR) 35 [facility] EXT Creatinine 1.5 0.5 - 1.5 mg/dL [facility] Blood (Blood, Venous) Tristian Thompson APRN.N.P., M.S. LAB BLOOD ADD-ON Performing Organization Address City/[facility]/ZIP Co de Phone Number [facility] [address] [place] [address] * (ABNORMAL) Comprehensive Metabolic Panel (07/09/2023 2:54 PM MIS SPECIALIST) [facility] Potassium, S 5.2 3.6 - 5.2 mmol/L 07/09/2023 4:08 PM MIS SPECIALIST DTL Sodium, S 142 135 - 145 mmol/L 07/09/2023 4:08 PM MIS SPECIALIST DTL Chloride, S 101 98 - 107 mmol/L 07/09/2023 4:08 PM MIS SPECIALIST DTL Bicarbonate, S 27 22 - 29 mmol/L 07/09/2023 4:08 PM MIS SPECIALIST DTL Anion Gap 14 7 - 15 07/09/2023 4:08 PM MIS SPECIALIST DTL BUN (Blood Urea Nitrogen), S 70(H) 6 - 21 mg/dL 07/09/2023 4:08 PM MIS SPECIALIST DTL Creatinine 2.00(H) 0.59 - 1.04 mg/dL 07/09/2023 4:08 PM MIS SPECIALIST DTL Estimated GFR (eGFR) 25(L) >=60 mL/min/BS A 07/09/2023 4:08 PM MIS SPECIALIST DTL Comment: Estimated GFR calculated using the 2020 CKD_EPI creatinine equation. Calcium, Total, S 9.2 8.8 - 10.2 mg/dL 07/09/2023 4:08 PM MIS SPECIALIST DTL Glucose, S 108 70 - 140 mg/dL 07/09/2023 4:08 PM MIS SPECIALIST DTL Protein, Total, S 7.3 6.3 - 7.9 g/dL 07/09/2023 4:08 PM MIS SPECIALIST DTL Albumin, S 4.6 3.5 - 5.0 g/dL 07/09/2023 4:08 PM MIS SPECIALIST DTL Aspartate Aminotransferase (AST), S 27 8 - 43 U/L 07/09/2023 4:08 PM MIS SPECIALIST DTL Alkaline Phosphatase, S 210(H) 35 - 104 U/L 07/09/2023 4:08 PM MIS SPECIALIST DTL Alanine Aminotransferase (ALT), S 26 7 - 45 U/L 07/09/2023 4:08 PM MIS SPECIALIST DTL Bilirubin, Total, S 0.8 0.0 - 1.2 mg/dL 07/09/2023 4:08 PM MIS SPECIALIST DTL Blood (Blood, Venous) 07/09/2023 2:54 PM MIS SPECIALIST 07/09/2023 3:19 PM MIS SPECIALIST Eloy Cabrera M.D. LAB BLOOD ADD-ON Performing Organization Address City/[facility] Co de Phone Number [facility] [address] [place], [place] [address] [address] [place] [address] * Thyroid Function [place] (09/02/2021 3:51 PM CDT) TSH, Sensitive 2.0 0.3 - 4.2 mIU/L 09/02/2021 4:46 PM CDT DTL Blood (Blood, Venous) 09/02/2021 3:51 PM CDT 09/02/2021 4:21 PM CDT Nina Mora P.A.-C., M.S. LAB BLO OD ADD-ON Performing Organization Address [facility] Co de Phone Number [facility] [address] [place], [place] [phone] [place] [address] [address] [place] [address] from Last 3 Months or Most Recently Relevant to Health Maintenance Advance Directives For more information, please contact: [phone] Documents on File Type Date Recorded Patient Land Inspector Expl anation Advance Directives 11/26/2006 12:00 AM [...] Answer Comments Full Code: Discussed Care Teams Trimmer Tailer Relationship Specialty Start Date End Date Elsewhere, Pcp PCP - General Internal Medicine 04/08/22
--- OUTSIDE RECORDS SUMMARY | 2023-12-26 10:12 | XMS_ITS ---
Author Organization [facility] Address [address] [place] [address] Care Team Providers Care Building Illuminating Engineer Name Role Phone Unavailable Unavailable Unavailable Surgery Details Not on file Complications Check Surgery Details section. Procedure Estimated Blood Loss Check Surgery Details section. Procedure Findings Check Surgery Details section. Procedure Specimens Taken Check Surgery Details section.
--- OUTSIDE RECORDS SUMMARY | 2023-12-26 10:12 | XMS_ITS ---
Author Organization [facility] Address [address] [place] [address] Care Team Providers Care Saw Handle Assembler Name Role Phone Elsewhere, Pcp Primary Care Provider Unavailabl e Procedures Procedure Name Priority Date/Time Associated Diagnosis Comments POTASSIUM, S/P Routine 09/09/2023 CREATININE WITH EGFR, S/P Routine 09/09/2023 COMPREHENSIVE METABOLIC PANEL, S/P Routine 07/09/2023 2:54 PM PICKLING MACHINE OPERATOR Sarcoidosis Pulmonary (HCC) THYROID FUNCTION CASCADE, S Routine 09/02/2021 3:51 PM CDT from Last 3 Months or Most Recently Relevant to Health Maintenance Allergies Active Allergy Reactions Criticality Noted Date [...] tablet Take 20 mg by mouth daily. 02/07/201 4 Active acetaminophen (TYLENOL) 500 mg tablet Take 2 tablets (1,000 mg total) by mouth every 6 (six) hours as needed for mild pain or score 1-3 of 10, moderate pain or score 4-6 of 10, headaches or fever. 2 Active omeprazole (PriLOSEC) [address] capsule Take 20 mg by mouth daily. In the morning 2 Active multivitamin-iro j-KX-Bs-minerals (THERAPEUTIC-M) 400 mcg (folic acid) per tablet [...] Status Post 10/07/2021 Anticoagulant Therapy 10/07/2021 Therapy Product Management Specialist Antiplatelet 10/07/2021 Anemia Posthemorrhagic Acute (Blood Loss [...] (11/17/2018): Added automatically from request for surgery [id number] Apnea Sleep Obstructive 12/13/2017 Overweight Body Mass [...] Disease Or Unspecified Chronic Kidney Disease 11/17/2006 Immunizations Name Administration Dates Next Due [...] How often do you attend chur or church services? More than 4 times per year 03/27/2022 Do you belong to any clubs o r organizations such as taoist groups, unions, fraternal or athletic groups, or [...] Answer Date Recorded PHQ-2 Score 3 09/24/2021 [facility] of Occupat ional Health - Occupational Stress [...] T Respiratory Rate 20 07/02/2023 10:39 AM PICKLING MACHINE OPERATOR Oxygen Saturation 93% 07/09/2023 1:50 PM PICKLING MACHINE OPERATOR Inhaled Oxygen Concentration - - Weight 69.9 kg (154 lb 1.6 oz) 09/14/2023 2:43 P M CDT Height 165 cm (5' 4.96) 09/14/2023 2:43 PM CDT Body Mass Index 25.67 09/14/2023 2:43 PM CDT Results * Potassium (09/09/2023) EXT Potassium 4.3 3.6 - 5.1 [facility] Blood (Blood, Venous) Rosa Bolton APRN, C.N.P., M.S. LAB BLOOD ADD-ON [facility] [address] [place] [address], [facility] [phone] * Creatinine with Estimated GFR (09/09/2023) [facility] EXT Estimated GFR (eGFR) 35 [facility] EXT Creatinine 1.5 0.5 - 1.5 mg/dL [facility] Blood (Blood, Venous) Faustina Thompson APRNNChel., M.S. LAB BLOOD ADD-ON [facility] [address] [place] [address], [facility] [phone] * (ABNORMAL) Comprehensive Metabolic Panel (07/09/2023 2:54 PM PICKLING MACHINE OPERATOR) [facility] Potassium, S 5.2 3.6 - 5.2 mmol/L 07/09/2023 4:08 PM PICKLING MACHINE OPERATOR DTL Sodium, S 142 135 - 145 mmol/L 07/09/2023 4:08 PM PICKLING MACHINE OPERATOR DTL Chloride, S 101 98 - 107 mmol/L 07/09/2023 4:08 PM PICKLING MACHINE OPERATOR DTL Bicarbonate, S 27 22 - 29 mmol/L 07/09/2023 4:08 PM PICKLING MACHINE OPERATOR DTL Anion Gap 14 7 - 15 07/09/2023 4:08 PM PICKLING MACHINE OPERATOR DTL BUN (Blood Urea Nitrogen), S 70(H) 6 - 21 mg/dL 07/09/2023 4:08 PM PICKLING MACHINE OPERATOR DTL Creatinine 2.00(H) 0.59 - 1.04 mg/dL 07/09/2023 4:08 PM PICKLING MACHINE OPERATOR DTL Estimated GFR (eGFR) 25(L) >=60 mL/min/BS A 07/09/2023 4:08 PM PICKLING MACHINE OPERATOR DTL Comment: Estimated GFR calculated using the 2020 CKD_EPI creatinine equation. Calcium, Total, S 9.2 8.8 - 10.2 mg/dL 07/09/2023 4:08 PM PICKLING MACHINE OPERATOR DTL Glucose, S 108 70 - 140 mg/dL 07/09/2023 4:08 PM PICKLING MACHINE OPERATOR DTL Protein, Total, S 7.3 6.3 - 7.9 g/dL 07/09/2023 4:08 PM PICKLING MACHINE OPERATOR DTL Albumin, S 4.6 3.5 - 5.0 g/dL 07/09/2023 4:08 PM PICKLING MACHINE OPERATOR DTL Aspartate Aminotransferase (AST), S 27 8 - 43 U/L 07/09/2023 4:08 PM PICKLING MACHINE OPERATOR DTL Alkaline Phosphatase, S 210(H) 35 - 104 U/L 07/09/2023 4:08 PM PICKLING MACHINE OPERATOR DTL Alanine Aminotransferase (ALT), S 26 7 - 45 U/L 07/09/2023 4:08 PM PICKLING MACHINE OPERATOR DTL Bilirubin, Total, S 0.8 0.0 - 1.2 mg/dL 07/09/2023 4:08 PM PICKLING MACHINE OPERATOR DTL Blood (Blood, Venous) 07/09/2023 2:54 PM PICKLING MACHINE OPERATOR 07/09/2023 3:19 PM PICKLING MACHINE OPERATOR Eloy Cabrera M.D. LAB BLOOD ADD-ON Performing Organization Address City/[facility]/ZIP Co de Phone Number [facility] [address] [place] [address] * Thyroid Function [place] (09/02/2021 3:51 PM CDT) [facility] TSH, Sensitive 2.0 0.3 - 4.2 mIU/L 09/02/2021 4:46 PM CDT DTL Blood (Blood, Venous) 09/02/2021 3:51 PM CDT 09/02/2021 4:21 PM CDT Nina Mora P.A.-C., M.S. LAB BLO OD ADD-ON Performing Organization Address City/[facility]/ZIP Co de Phone Number [facility] [address] [place] [address], [place] [address] from Last 3 Months or Most Recently Relevant to Health Maintenance
--- OUTSIDE RECORDS SUMMARY | 2023-12-26 10:13 | XMS_ITS | Encounter Summary ---
Author Organization [facility] Address [address] [place] [address] Care Team Providers Care Doctor Of Nursing Practice Name Role Phone Elsewhere, Pcp Primary Care Provider Unavailabl e Reason for Visit * Reason Onset Date Comments Rx Prior Authorization 09/13/2023 Eliquis Encounter Details Date Type Department Care Team (Latest Contact Info) Description 09/13/2023 Clinical Communication Department of Cardiovascular Medicine in [place], [place] [address] [place] [address] Emi Wilson APRN, C.N.P., M.S., M.S.N. [address] [place] [phone] Rx Prior Authorization (Eliquis) Social History Tobacco Use Types Packs/Day Years [...] How often do you attend chur or jain services? More than 4 times per year [...] Answer Date Recorded PHQ-2 Score 3 09/24/2021 [facility] of Occupat ional Health - [...] place to sleep or slept in a fpc (including now)? No 03/27/2022 Depression Answer Date [...] as of this encounter Plan of Treatment Upcoming Encounters Date Type Department Care Team (Latest Contact Info) Description 02/21/2024 1:00 PM CDT Clinical Communication Virtual Review in [place], [place] [address] [place] [address] 02/23/2024 12:00 PM CDT Ancillary Procedure Department of Cardiovascular Medicine in [place], [place] [address] [place] [phone] Eloy Cabrera M.D. [address] [place] [phone] 02/23/2024 12:30 PM CDT Appointment Department of Laboratory Medicine and Pathology, [facility] in [place], [place] [address] [place] [phone] Eloy Cabrera M.D. [address] [place] [phone] 02/23/2024 1:00 PM CDT Diagnostic Division of Pulmonary Medicine in [address] [phone] Eloy Cabrera M.D. [address] [place] [phone] 02/23/2024 2:15 PM CDT Appointment Department of Radiology, [facility] in [address] [phone] Eloy Cabrera M.D. [address] [place] [phone] 02/23/2024 3:00 PM CDT Office Visit Division of Pulmonary Medicine in [address] [phone] Taiwo Mike M.D. [address] [place] [phone] documented as of this encounter Visit Diagnoses Not on filedocumented in this encounter Additional Health Concerns Assessment Noted Time PHQ-9 Depression Total Score: 10 0518/2 022 2:00 PM CDT documented as of this encounter Care Teams Doctor Of Nursing Practice Relationship Specialty Start Date End Date Elsewhere, Pcp PCP - General Internal Medicine 04/08/22 documented as of this encounter
--- OUTSIDE RECORDS SUMMARY | 2023-12-26 10:13 | XMS_ITS | Encounter Summary ---
Author Organization [facility] Address [address] [place] [address] Care Team Providers Care Director Of Slot Operations Name Role Phone Elsewhere, Pcp Primary Care Provider Unavailabl e Reason for Visit * Reason Comments Med Refill Encounter Details Date Type Department Care Team (Late st Contact Info) Description 12/20/2023 Refill Department of Cardiovascular Medicine in [place], [place] [address] [place] [phone] Emi Wilson APRN, C.N.P., M.S., M.S.N. [address] [place] [phone] Med Refill Social History Tobacco Use Types [...] How often do you attend chur or judaism services? More than 4 times per year 03/27/2022 Do you belong to any clubs o r organizations such as buddhist groups, unions, fraternal or athletic groups, or [...] Answer Date Recorded PHQ-2 Score 3 09/24/2021 [facility] of Occupat ionaz Health - Occupational Stress Questionnaire Answer Date [...] PM CDT Clinical Communication Virtual Review in [address] [phone] 02/23/2024 12:00 PM CDT Ancillary Procedure Department of Cardiovascular Medicine in [place], [place] [address] [place] [address] Eloy Cabrera M.D. [address] [place] [phone] 02/23/2024 12:30 PM CDT Appointment Department of Laboratory Medicine and Pathology, [facility] in [place], [place] [address] [place] [phone] Eloy Cabrera M.D. [address] [place] [phone] 02/23/2024 1:00 PM CDT Diagnostic Division of Pulmonary Medicine in [place], [place] [address] [place] [phone] Eloy Cabrera M.D. [address] [place] [phone] 02/23/2024 2:15 PM CDT Appointment Department of Radiology, [facility] in [place], [place] [address] [place] [phone] Eloy Cabrera M.D. [address] [place] [phone] 02/23/2024 3:00 PM CDT Office Visit Division of Pulmonary Medicine in [place], [place] [address] [place] [phone] Taiwo Mike M.D. [address] [place] [phone] documented as of this encounter Visit Diagnoses Not on filedocumented in this encounter Additional Health Concerns Assessment Noted Time PHQ-9 Depression Total Score: 10 09/24/2 022 2:00 PM CDT documented as of this encounter Care Teams Director Of Slot Operations Relationship Specialty Start Date End Date Elsewhere, Pcp PCP - General Internal Medicine 04/08/22 documented as of this encounter
--- OUTSIDE RECORDS SUMMARY | 2023-12-26 10:13 | XMS_ITS | Encounter Summary ---
Author Organization [facility] Address [address] [place] [address] Care Team Providers Care Mill Recorder Name Role Phone Elsewhere, Pcp Primary Care Provider Unavailabl e Encounter Details Date Type Department Care Team (Late st Contact Info) Description 09/10/2023 Clinical Communication Pharmacy Prior Auth [phone] Mary Adams Social History Tobacco Use Types Packs/Day Years [...] often do you attend chur ch or gnosticist services? More than 4 times per year [...] [facility]at ional [facility] - Occupational [...] PM CDT Clinical Communication Virtual Review in [place], [place] 200 [place] [address] 02/23/2024 12:00 PM CDT Ancillary Procedure Department of Cardiovascular Medicine in [place], [place] [address] [place] [phone] Eloy Cabrera M.D. [address] [place] [phone] 02/23/2024 12:30 PM CDT Appointment Department of Laboratory Medicine and Pathology, [facility] in [place], [place] [address] [place] [phone] Eloy Cabrera M.D. [address] [place] [phone] 02/23/2024 1:00 PM CDT Diagnostic Division of Pulmonary Medicine in [place], [place] [address] [place] [phone] Eloy Cabrera M.D. [address] [place] [phone] 02/23/2024 2:15 PM CDT Appointment Department of Radiology, [facility] in [place], [place] [address] [place] [address] Eloy Cabrera M.D. [address] [place] [phone] 02/23/2024 3:00 PM CDT Office Visit Division of Pulmonary Medicine in [place], [place] [address] [place] [phone] Taiwo Mike M.D. [address] [place] [phone] documented as of this encounter Visit Diagnoses Not on filedocumented in this encounter Additional Health Concerns Assessment Noted Time PHQ-9 Depression Total Score: 10 022 2:00 PM CDT documented as of this encounter Care Teams Mill Recorder Relationship Specialty Start Date End Date Elsewhere, Pcp PCP - General Internal Medicine 04/08/22 documented as of this encounter
--- OUTSIDE RECORDS SUMMARY | 2023-12-26 10:13 | XMS_ITS | Clinical Summary ---
Author Organization [employer] [facility] Address [place], [place] [address] Care Team Providers Care Foot Press Operator Name Role Phone Alcides Gonzalez MD Primary [...] erosions, duodenal angiodysplasia Colonoscopy 06/2013 microscopic colitis snf (current) use of anticoagulants 2013 Atrial fibrillation 06/16/2013 Encounters Date Type Department Care Team Description 12/20/2023 Telephone [place] [address] [place] [address] Valentino Maldonado MD Refill Request (Torsemide 20mg) from Last 3 Months Social History Tobacco [...] 36.7 ??C (98 ??F) 07/12/2013 2:37 PM [employer]IL[employer] Respiratory Rate 22 12/22/2021 2:00 PM CDT [...] 1 - PCV) 2010 COVID-19 vaccine series (6 - 2022-24 season) 2023 03/06/2022, 12/11/2021, 01/31/2021, Additional history exists Depression screening for age 12+ 09/01/2023 08/31/2022, 06/26/2022, 06/23/2022, Additional history exists Influenza for age 65+ 01/09/2024 Care Teams Foot Press Operator Relationship Specialty Start Date End Date Alcides Gonzalez MD PCP - General Family Practice 06/13/13
--- OUTSIDE RECORDS SUMMARY | 2023-12-26 10:13 | XMS_ITS | Encounter Summary ---
Author Organization [facility] Address [address] [place] [address] Care Team Providers Care Rubber Compounder Supervisor Name Role Phone Elsewhere, Pcp Primary Care Provider Unavailabl e Reason for Visit * Reason Comments Med Refill Encounter Details Date Type Department Care Team (Late st Contact Info) Description 10/28/2023 Refill Division of Pulmonary Medicine in [place], [place] [address] [place] [phone] Eloy Cabrera M.D. [address] [place] [phone] Med Refill Social History Tobacco Use Types [...] any clubs o r organizations such as nondenominational groups, unions, fraternal or athletic groups, or [...] 3 09/24/2021 [facility]at ionvt Health - Occupational Stress Questionnaire Answer Date [...] PM CDT Clinical Communication Virtual Review in [place] [address] [place] [phone] 02/23/2024 12:00 PM CDT Ancillary Procedure Department of Cardiovascular Medicine in [place], [place] [address] [place] [phone] Eloy Cabrera M.D. [address] [place] [phone] 02/23/2024 12:30 PM CDT Appointment Department of Laboratory Medicine and Pathology, [facility] in [place], [place] [address] [place] [phone] Eloy Cabrera M.D. [address] [place] [phone] 02/23/2024 1:00 PM CDT Diagnostic Division of Pulmonary Medicine in [place], [place] [address] [place] [phone] Eloy Cabrera M.D. [address] [place] [phone] 02/23/2024 2:15 PM CDT Appointment Department of Radiology, [facility] in [place], [place] [address] [place] [phone] Eloy Cabrera M.D. [address] [place] [phone] 02/23/2024 3:00 PM CDT Office Visit Division of Pulmonary Medicine in [place], [place] [address] [place] [phone] Taiwo Mike M.D. [address] [place] [phone] documented as of this encounter Visit Diagnoses Diagnosis Dyspnea On Exertion Chronic Obstructive Pulmonary Disease (HCC) documented in this encounter Additional Health Concerns Assessment Noted Time PHQ-9 Depression Total Score: 10 09/24/2 022 2:00 PM CDT documented as of this encounter Care Teams Rubber Compounder Supervisor Relationship Specialty Start Date End Date Elsewhere, Pcp PCP - General Internal Medicine 04/08/22 documented as of this encounter
--- OUTSIDE RECORDS SUMMARY | 2023-12-26 10:13 | XMS_ITS | Encounter Summary ---
Author Organization [facility] Address [address] [place] [address] Care Team Providers Care Cable Tool Operator Name Role Phone Elsewhere, Pcp Primary Care Provider Unavailabl e Reason for Visit * Reason Comments Med Refill Encounter Details Date Type Department Care Team (Late st Contact Info) Description 11/18/2023 Refill Division of Rheumatology in [place], [place] [address] [place] [phone] Rosa Bolton, DIPAK, C.N.P., M.S. [address] [place] [phone] Med Refill Social History Tobacco Use Types [...] often do you attend chur ch or mormonism services? More than 4 times per year 03/27/2022 Do you belong to any clubs o r organizations such as baptism groups, unions, fraternal or athletic groups, or [...] Answer Date Recorded PHQ-2 Score 3 09/24/2021 [facility] of Occupat ional Health - [...] place to sleep or slept in a intermediate (including now)? No 03/27/2022 Depression Answer Date [...] encounter Miscellaneous Notes * Telephone Encounter - Ruchi Sloan R.N. - 11/24/2023 11:26 AM CDT Prescription renewal request for leflunomide (Arava) received from pharmacy. HISTORY OF PRESENT ILLNESS Last Rheum / VASC visit: 07/06/23 with Rosa Bolton APRN, JENNIFER Future office visit: ordered, not yet scheduled Last monitoring labs: 09/09/23, Missing AST/ALT: overdue for updated monitoring labs Prescription request matches current plan of care. Prescription request matches a current prescription in the Medication List. Exclusion criteria: None (If an alert appeared, it was determined to be an approved exception) ASSESSMENT/PLAN Prescription request pended for provider review due to missing monitoring labs. 30 day supply pended. documented in this encounter Plan of Treatment Upcoming Encounters Date Type Department Care Team (Latest Contact Info) Description 02/21/2024 1:00 PM CDT Clinical Communication Virtual Review in [address] [phone] 02/23/2024 12:00 PM CDT Ancillary Procedure Department of Cardiovascular Medicine in [address] [phone] Eloy Cabrera M.D. [address] [place] [phone] 02/23/2024 12:30 PM CDT Appointment Department of Laboratory Medicine and Pathology, [facility] in [address] [phone] Eloy Cabrera M.D. [address] [place] [phone] 02/23/2024 1:00 PM CDT Diagnostic Division of Pulmonary Medicine in [address] [phone] Eloy Cabrera M.D. [address] [place] [phone] 02/23/2024 2:15 PM CDT Appointment Department of Radiology, [facility] in [address] [phone] Eloy Cabrera M.D. [address] [place] [phone] 02/23/2024 3:00 PM CDT Office Visit Division of Pulmonary Medicine in [place], [place] [address] [place] [phone] Taiwo Mike M.D. [address] [place] [phone] documented as of this encounter Procedures Procedure Name Priority Date/Time Associated Diagnosis Comments CBC WITH DIFFERENTIAL, B Routine 09/09/2023 URIC ACID, S/P Routine 09/09/2023 POTASSIUM, S/P Routine 09/09/2023 CREATININE WITH EGFR, S/P Routine 09/09/2023 documented in this encounter Results * (ABNORMAL) Uric Acid (09/09/2023) EXT Uric Acid, S 8.5(A) 2.2 - 8.4 [facility] Blood (Blood, Venous) Rosa Bolton APRN C.N.P., M.S. LAB BLOOD ADD-ON Performing Organization Address City/[facility]/ZIP Co de Phone Number [facility] [address] [place] [address] * Potassium (09/09/2023) EXT Potassium 4.3 3.6 - 5.1 [facility] Blood (Blood, Venous) Tristian Thompson APRN.N.P., M.S. LAB BLOOD ADD-ON Performing Organization Address City/[facility]/ZIP Co de Phone Number [facility] [address] [place], [place] [address] [phone] * Creatinine with Estimated GFR (09/09/2023) EXT Estimated GFR (eGFR) 35 [facility] EXT Creatinine 1.5 0.5 - 1.5 mg/dL [facility] Blood (Blood, Venous) Faustina Thompson APRNN.Ave., M.S. LAB BLOOD ADD-ON Performing Organization Address City/[facility] Co de Phone Number [facility] [address] [place] [address], [facility] [phone] * (ABNORMAL) CBC with Differential, Blood (09/09/2023) [facility] EXT Platelet Count 199 140 - 440 [facility] EXT Hemoglobin 10.2(A) 12 - 16 [facility] EXT Leukocytes 7.5 [facility] Blood (Blood, Venous) Tristian Thompson APRN.N.P., M.S. LAB BLOOD ADD-ON Performing Organization Address City/[facility] Co de Phone Number [facility] [address] [place], [place] [address] [phone] documented in this encounter Visit Diagnoses Diagnosis Arthritis Rheumatoid (HCC) documented in this encounter Additional Health Concerns Assessment Noted Time PHQ-9 Depression Total Score: 10 09/24/ 022 2:00 PM CDT documented as of this encounter Care Teams Cable Tool Operator Relationship Specialty Start Date End Date Elsewhere, Pcp PCP - General Internal Medicine 04/08/22 documented as of this encounter
--- OUTSIDE RECORDS SUMMARY | 2023-12-26 10:13 | XMS_ITS | Encounter Summary ---
Author Organization [facility] Address [address] [place] [address] Care Team Providers Care Slot Tag Inserter Name Role Phone Elsewhere, Pcp Primary Care Provider Unavailabl e Reason for Visit * Reason Comments Med Refill Encounter Details Date Type Department Care Team (Late st Contact Info) Description 12/12/2023 Refill Division of Rheumatology in [place], [place] [address] [place] [phone] Rosa Bolton, DIPAK, C.N.P., M.S. [address] [place] [phone] Med Refill Social History Tobacco Use Types [...] often do you attend chur ch or scientology services? More than 4 times per year [...] Answer Date Recorded PHQ-2 Score 3 09/24/2021 [facility] of Occupat ional Health - Occupational Stress [...] encounter Miscellaneous Notes * Telephone Encounter - Noel Ricardo R.N. - 12/20/2023 11:30 AM CDT SUBJECTIVE CHIEF COMPLAINT / REASON FOR CALL Med Refill Information Discussed Spoke with patient. Stated she did have Plaquenil eye exam locally and requested they send to [place].Will send our fax number to patient through portal. She will contact her eye doctor again to have them fax. PLAN Disposition/Recommendation: self-care appropriate at this time, patient encouraged to call back with questions Information/Education: patient/caller able to teach back Caller agreeable to plan of care: yes The following references were used: provider Rosa Bolton * Telephone Encounter - Ruchi Sloan R.N. - 12/17/2023 2:21 PM CDT * Telephone Encounter - Ruchi Sloan R.N. - 12/17/2023 2:03 PM CDT Prescription renewal request for hydroxychloroquine (Plaquenil) received from pharmacy. HISTORY OF PRESENT ILLNESS Last Rheum / VASC visit: 07/06/23 with Rosa Bolton APRN, JENNIFER Future office visit: ordered, not yet scheduled Last monitoring retinal screening exam: .: overdue for updated retinal screening Prescription request matches current plan of care. Prescription request matches a current prescription in the Medication List. Exclusion criteria: None (If an alert appeared, it was determined to be an approved exception) ASSESSMENT/PLAN Prescription request denied due to second consecutive delinquency for medication monitoring with reminders given. Patient contacted to inform them of reasoning for Rx denial. documented in this encounter Plan of Treatment Upcoming Encounters Date Type Department Care Team (Latest Contact Info) Description 02/21/2024 1:00 PM CDT Clinical Communication Virtual Review in [place], [place] [address] [place] [phone] 02/23/2024 12:00 PM CDT Ancillary Procedure Department of Cardiovascular Medicine in [place], [place] [address] [place] [phone] Eloy Cabrera M.D. [address] [place] [phone] 02/23/2024 12:30 PM CDT Appointment Department of Laboratory Medicine and Pathology, [facility] in [place], [place] [address] [place] [phone] Eloy Cabrera M.D. [address] [place] [phone] 02/23/2024 1:00 PM CDT Diagnostic Division of Pulmonary Medicine in [place], [place] [address] [place] [phone] Eloy Cabrera M.D. [address] [place] [phone] 02/23/2024 2:15 PM CDT Appointment Department of Radiology, [facility] in [place], [place] [address] [place] [phone] Eloy Cabrera M.D. [address] [place] [phone] 02/23/2024 3:00 PM CDT Office Visit Division of Pulmonary Medicine in [place], [place] [address] [place] [phone] Taiwo Mike M.D. [address] [place] [phone] documented as of this encounter Visit Diagnoses Diagnosis Arthritis Rheumatoid (HCC) documented in this encounter Additional Health Concerns Assessment Noted Time PHQ-9 Depression Total Score: 10 022 2:00 PM CDT documented as of this encounter Care Teams Slot Tag Inserter Relationship Specialty Start Date End Date Elsewhere, Pcp PCP - General Internal Medicine 04/08/22 documented as of this encounter
== END 2023-12-24 13:40 | disposition home or self-care (01) ==
LOC: NFLDREF 12-26 10:09
PROVIDERS: PCP Family Medicine; Referring Provider Family Medicine; Visit Provider Internal Medicine Nephrology
DX: I12.9 Hypertensive chronic kidney disease with stage 1 through stage 4 chronic kidney disease, or unspecified chronic kidney disease (principal); N18.4 Chronic kidney disease, stage 4 (severe); D63.1 Anemia in chronic kidney disease
CPT/HCPCS: 80069; 82043; 82570; 82728; 83540; 83550; 83970; 84550

== ENCOUNTER 2023-12-30 14:15 | Outpatient (RCR) | payer OTHER, SELFPAY ==
[2023-07-15 14:09] VITALS: BP 107/64; PULSE 102; RESP 16; TEMP 36; O2SAT 94
[2023-07-15 14:14] LABS: Basophils Absolute Auto 0.03 K/uL (0.00-0.30); Basophils Percent Auto 0.4 % (0.0-3.0); Eosinophils Absolute Auto 0.08 K/uL (0.00-0.50); Hematocrit 25.3 % (33.0-51.0); Hemoglobin* 8.1 gm/dL (12.0-16.0); Immature Granulocytes Abs Auto 0.11 K/uL (0.00-0.30); Immature Granulocytes Pct Auto 1.3 %; Lymphocytes Percent Auto 7.4 % (20-44); Mean Corpuscular HGB Conc 32 gm/dL (32-36); Mean Corpuscular Hemoglobin 31 pg (26-34); Mean Corpuscular Volume 96 fL (80-100); Monocytes Percent Auto 10.6 % (0.0-11.0); Neutrophils Percent Auto 79.3 % (42.0-72.0); Platelet Count* 323 K/uL (140-440); RDW Coefficient of Variation % 19.6 % (11.5-15.5); Red Blood Count 2.64 m/uL (4.00-5.20); White Blood Count* 8.33 K/uL (4.50-11.00)
[2023-07-15 14:15] VITALS: BP 119/78; PULSE 77; RESP 16; TEMP 36.4; O2SAT 92
[2023-07-15 14:16] LABS: Slide Review Reflex No
--- NOTE | 2023-07-15 15:39 | ONC.NURNOTE ---
Pt here for Procrit injection. Hgb 8.1; was 9.6 two wks ago. She notes she has been feeling more tired lately and has a new symptom of restless legs. She describes it as her legs feel like they're stretching even when she's sitting regularly. She notes she has not been sleeping well, noting feeling the restlessness more strongly and also kicking her legs a lot in the night. Notified Dr. Gonzalez's nurse; Pt fit into schedule 07/18 at 1045. Procrit to be given tomorrow afternoon. Educated pt on s/s of worsening anemia and/or bleeding and when to go into ED. She verbalizes understanding.
[2023-07-16] MEDS: EPOETIN ALFA 10,000 UNIT/ML VIAL 10000 UNIT SUBCUT (14:53)
[2023-07-29 14:00] VITALS: BP 111/66; PULSE 72; RESP 16; TEMP -13.4; TEMP 7.8; O2SAT 94
[2023-07-29] MEDS: EPOETIN ALFA 10,000 UNIT/ML VIAL 10000 UNIT SUBCUT (14:25)
--- NOTE | 2023-08-06 11:01 | ONC.NURNOTE ---
Network Operations Manager left note to determine if hematology is continuing to follow patient. Per Dr. Kilpatrick, patient is now only being followed by Nephrology.
[2023-08-12 14:15] VITALS: BP 114/65; PULSE 76; RESP 18; TEMP 36.2; O2SAT 92
[2023-08-12] MEDS: EPOETIN ALFA 10,000 UNIT/ML VIAL 10000 UNIT SUBCUT (14:20)
[2023-08-26 14:08] VITALS: BP 127/71; PULSE 75; RESP 16; TEMP 35.7; O2SAT 96
[2023-08-26] MEDS: EPOETIN ALFA 10,000 UNIT/ML VIAL 10000 UNIT SUBCUT (14:27)
--- NOTE | 2023-09-08 08:12 | URNOTE ---
Luis ([id number]) has been approved. 09/09/2023-05/09/2024 Ref #[id number]
[2023-09-09 13:35] VITALS: BP 130/66; PULSE 77; RESP 16; TEMP 36.4; O2SAT 95
[2023-09-09 13:57] LABS: Hematocrit 33.7 % (33.0-51.0); Hemoglobin* 10.2 gm/dL (12.0-16.0); Mean Corpuscular HGB Conc 30 gm/dL (32-36); Mean Corpuscular Hemoglobin 30 pg (26-34); Mean Corpuscular Volume 98 fL (80-100); Platelet Count* 199 K/uL (140-440); Red Blood Count 3.45 m/uL (4.00-5.20); White Blood Count* 7.51 K/uL (4.50-11.00)
[2023-09-09 13:59] LABS: Slide Review Reflex No
[2023-09-09 14:37] LABS: Appearance Urine Clear (Clear); Bilirubin Urine Negative (Negative); Blood Urine Negative (Negative); Color Urine Yellow (Yellow); Glucose Urine Negative (Negative); Ketones Urine Negative (Negative); Leukocyte Esterase Urine Negative (Negative); Nitrite Urine Negative (Negative); Protein Urine 1+ (Negative); Specific Gravity Urine 1.015 (1.000-1.030); Urobilinogen Urine 0.2 (0.2-1.0)
[2023-09-09 14:41] LABS: Albumin* 4.6 g/dL (3.3-5.0); Chloride* 104 mmol/L (96-114); Sodium* 140 mmol/L (135-149)
[2023-09-09] MEDS: EPOETIN ALFA 10,000 UNIT/ML VIAL 10000 UNIT SUBCUT (14:41)
[2023-09-09 14:42] LABS: Potassium* 4.3 mmol/L (3.6-5.1)
[2023-09-09 14:44] LABS: Anion Gap 8 mEq/L (7-15); Blood Urea Nitrogen* 50 mg/dL (7-30); Carbon Dioxide* 28 mmol/L (20-32); Creatinine* 1.5 mg/dL (0.5-1.5); Estimated Glomerular Filt Rate 35 ml/min
[2023-09-09 14:45] LABS: Calcium* 8.9 mg/dL (8.4-10.6); Glucose* 130 mg/dL (60-115); Iron* 57 ug/dL (37-170); Phosphorus* 4.3 mg/dL (2.5-4.5); Uric Acid* 8.5 mg/dL (2.2-8.4)
[2023-09-09 14:54] LABS: Percent Iron Saturation 24 % (20-50); Total Iron Binding Capacity 234 ug/dL (265-497)
[2023-09-09 14:55] LABS: RBC Urine 0-2 (0-2); WBC Urine 0-2 (0-5)
[2023-09-09 14:56] LABS: Amorphous Sediment Urine Few; Squamous Epithelial Cell Urine Few (None-Few)
[2023-09-09 14:57] LABS: Other Sediment Urine FEW
[2023-09-09 15:32] LABS: Creatinine Urine 61.3 mg/dL
[2023-09-09 15:37] LABS: Microalbumin Creatinine Ratio 170 mg/g (0-30); Microalbumin Urine 11 mg/dL
[2023-09-23 13:56] VITALS: BP 115/69; PULSE 65; RESP 18; TEMP 36.1; O2SAT 94
[2023-09-23] MEDS: EPOETIN ALFA 10,000 UNIT/ML VIAL 10000 UNIT SUBCUT (14:12)
[2023-10-07 14:08] LABS: Hemoglobin* 10.7 gm/dL (12.0-16.0)
[2023-10-07 14:48] VITALS: BP 129/70; PULSE 76; RESP 16; TEMP 36.8; O2SAT 93
[2023-10-07] MEDS: EPOETIN ALFA 10,000 UNIT/ML VIAL 10000 UNIT SUBCUT (14:55)
[2023-10-21 13:45] VITALS: BP 117/70; PULSE 84; RESP 16; TEMP 36.8; O2SAT 84
[2023-10-21] MEDS: EPOETIN ALFA 10,000 UNIT/ML VIAL 10000 UNIT SUBCUT (14:05)
[2023-11-04 14:12] VITALS: BP 110/71; PULSE 86; RESP 14; TEMP 37; O2SAT 93
[2023-11-04 14:15] LABS: Hemoglobin* 10.2 gm/dL (12.0-16.0)
[2023-11-04] MEDS: EPOETIN ALFA 10,000 UNIT/ML VIAL 10000 UNIT SUBCUT (14:45)
[2023-11-18 12:22] VITALS: BP 109/71; PULSE 16; RESP 16; TEMP 36.4; O2SAT 96
[2023-11-18] MEDS: EPOETIN ALFA 10,000 UNIT/ML VIAL 10000 UNIT SUBCUT (12:30)
[2023-12-02 14:55] VITALS: BP 121/62; PULSE 71; RESP 16; TEMP 37.2; O2SAT 96
[2023-12-02 15:03] LABS: Hemoglobin* 9.7 gm/dL (12.0-16.0)
[2023-12-02] MEDS: EPOETIN ALFA 10,000 UNIT/ML VIAL 10000 UNIT SUBCUT (15:35)
[2023-12-16 14:22] VITALS: BP 135/75; PULSE 77; RESP 16; TEMP 37; O2SAT 93
[2023-12-16] MEDS: EPOETIN ALFA 10,000 UNIT/ML VIAL 10000 UNIT SUBCUT (14:28)
[2023-12-30] MEDS: EPOETIN ALFA 10,000 UNIT/ML VIAL 20000 UNIT SUBCUT (14:38)
== END 2024-01-11 23:59 | disposition home or self-care (01) ==
LOC: CCIC 14:15
PROVIDERS: Internal Medicine Nephrology; PCP Family Medicine; Referring Provider Family Medicine; Visit Provider Clinical Nurse Specialist
DX: N18.4 Chronic kidney disease, stage 4 (severe) (principal); D63.1 Anemia in chronic kidney disease
CPT/HCPCS: 36415; 80069; 81001; 81003; 82043; 82310; 82570; 82728; 83540; 83550; 83970; 84443; 84550; 85018; 85025; 85027; 96372; 96401; J0885

== ENCOUNTER 2024-02-03 12:10 | Emergency (ER) | payer OTHER, SELFPAY ==
[2024-02-03 12:24] VITALS: BP 114/68; PULSE 74; RESP 20; TEMP 37.1; O2SAT 95; BMI 25.4
--- NOTE | 2024-02-03 12:39 | CRLHL7_ITS ---
For Patients: As a result of the Century Cures Act, medical imaging exams and procedure reports are released immediately into your electronic medical record. You may view this report before your referring provider. If you have questions, please contact your health care provider. INDICATION: Leg pain and swelling TECHNIQUE: Ultrasound venous duplex lower left extremity. Compression venous exam was performed using weiss-scale, color Doppler, and spectral Doppler analysis. COMPARISON: None. FINDINGS: Sonographic imaging demonstrates the left common femoral, deep femoral, superficial femoral, popliteal, posterior tibial and greater saphenous and the contralateral right common femoral veins to be fully compressible with normal color Doppler blood flow. Hypoechoic avascular collection within the anterior subcutaneous tissues of the paige measuring 1.4 x 0.3 x 1.8 centimeters. IMPRESSION: 1. No evidence of deep venous thrombosis left lower extremity. 2. Anechoic collection within the anterior paige measuring 1.4 x 0.3 x 1.8 centimeters. Differential diagnosis includes seroma or evolving hematoma. Dictated by Leno Medina MD @ 02/03/2024 1:51:14 PM (Electronically Signed)
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
== END 2024-02-03 13:46 | disposition home or self-care (01) ==
PROVIDERS: Emergency Provider Emergency Medicine Emergency Medical Services; PCP Family Medicine
DX: S80.12XA Contusion of left lower leg, initial encounter (principal)
CPT/HCPCS: 93971; 99284

== ENCOUNTER 2024-05-07 16:08 | Emergency (ER) | payer OTHER, SELFPAY ==
[2024-05-07] VITALS (9 sets, daily range): BP systolic 107–127; BP diastolic 61–86; PULSE 60–73; RESP 20; TEMP 37.1; O2SAT 96–98; BMI 24.1
--- NOTE | 2024-05-07 19:51 | CRLHL7_ITS ---
For Patients: As a result of the Century Cures Act, medical imaging exams and procedure reports are released immediately into your electronic medical record. You may view this report before your referring provider. If you have questions, please contact your health care provider. INDICATION: Weakness TECHNIQUE: Chest 2 views. COMPARISON: 04/21/2023 FINDINGS: Cardiovascular and mediastinum: Cardiomegaly. Unremarkable mediastinum. Aortic arch calcifications. Retained epicardial pacing wire. Mitral valve replacement. Lungs and pleural spaces: Similar diffuse interstitial markings may represent scarring or fibrosis. No sign of pleural effusion. No pneumothorax. Bones and soft tissues: Median sternotomy wires IMPRESSION: No acute findings and no significant changes from the prior exam. Dictated by Jeanine Ramos MD @ 05/07/2024 8:38:12 PM (Electronically Signed)
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
[2024-05-07 20:11] LABS: Basophils Absolute Auto 0.03 K/uL (0.00-0.30); Basophils Percent Auto 0.4 % (0.0-3.0); Eosinophils Absolute Auto 0.13 K/uL (0.00-0.50); Eosinophils Percent Auto 1.8 % (0.0-7.0); Hematocrit 33.2 % (33.0-51.0); Hemoglobin* 10.5 gm/dL (12.0-16.0); Immature Granulocytes Abs Auto 0.02 K/uL (0.00-0.30); Immature Granulocytes Pct Auto 0.3 %; Lymphocytes Percent Auto 16.7 % (20-44); Mean Corpuscular HGB Conc 32 gm/dL (32-36); Mean Corpuscular Hemoglobin 28 pg (26-34); Mean Corpuscular Volume 88 fL (80-100); Monocytes Percent Auto 14.5 % (0.0-11.0); Neutrophils Absolute Auto 4.71 K/uL (1.7-7.0); Neutrophils Percent Auto 66.3 % (42.0-72.0); Platelet Count* 244 K/uL (140-440); RDW Coefficient of Variation % 20.5 % (11.5-15.5); Red Blood Count 3.79 m/uL (4.00-5.20); White Blood Count* 7.11 K/uL (4.50-11.00)
[2024-05-07 20:16] LABS: Mono Screen* Negative (Negative); Slide Review Reflex No
[2024-05-07 20:38] LABS: Albumin* 4.5 g/dL (3.3-5.0); Chloride* 98 mmol/L (96-114)
[2024-05-07 20:39] LABS: Potassium* 3.7 mmol/L (3.6-5.1); Sodium* 133 mmol/L (135-149)
[2024-05-07 20:40] LABS: Creatinine* 1.8 mg/dL (0.5-1.5); Estimated Glomerular Filt Rate 28 ml/min
[2024-05-07 20:41] LABS: Alkaline Phosphatase* 183 U/L (40-150); Anion Gap 10 mEq/L (7-15); Aspartate Amino Transferase* 27 U/L (12-35); Bilirubin Direct* 0.5 mg/dL (0.0-0.5); Bilirubin Total* 1.5 mg/dL (0.1-1.5); Blood Urea Nitrogen* 100 mg/dL (7-30); Carbon Dioxide* 25 mmol/L (20-32); Glucose* 105 mg/dL (60-115); Lipase* 290 U/L (23-300); Total Protein* 7.9 g/dL (6.0-8.3)
[2024-05-07 20:42] LABS: Alanine Aminotransferase* 15 U/L (4-35); Calcium* 9.5 mg/dL (8.4-10.6); Magnesium* 2.6 mg/dL (1.5-2.6)
[2024-05-07 20:44] LABS: C Reactive Protein* 6.9 mg/dL (0.5-1.0)
[2024-05-07 21:01] LABS: NT Pro B Type NatriureticPept* 10100 pg/mL
[2024-05-07 21:02] LABS: Troponin I* 0.13 ng/mL (0.01-0.04)
[2024-05-07 21:05] LABS: PCR FLU A Negative PCR FLU A (Negative); PCR FLU B Negative PCR FLU B (Negative); PCR RSV Negative PCR RSV (Negative); SARS PCR* Negative SARS-CoV-2 (Negative)
[2024-05-07] MEDS: 0.9 % SODIUM CHLORIDE 250 ml 250 ML IV (21:26)
[2024-05-07 22:34] LABS: Appearance Urine Clear (Clear); Bilirubin Urine Negative (Negative); Blood Urine Negative (Negative); Color Urine Yellow (Yellow); Glucose Urine Negative (Negative); Ketones Urine Negative (Negative); Leukocyte Esterase Urine Negative (Negative); Nitrite Urine Negative (Negative); Protein Urine Negative (Negative); Specific Gravity Urine <= 1.005 (1.000-1.030); Urobilinogen Urine 0.2 (0.2-1.0); pH Urine 5.5 (5.0-8.5)
[2024-05-07 23:13] LABS: Troponin, Point-of-Care* 0.07 ng/ml (0.01-0.04)
[2024-05-07 23:21] LABS: Bacteria Urine Few; RBC Urine 0-2 (0-2); Squamous Epithelial Cell Urine Few (None-Few); WBC Urine 0-2 (0-5)
== END 2024-05-08 00:02 | disposition home or self-care (01) ==
PROVIDERS: Emergency Provider Family Medicine; PCP Family Medicine
DX: R53.1 Weakness (principal); E86.0 Dehydration; R11.10 Vomiting, unspecified
CPT/HCPCS: 36415; 71046; 80048; 80076; 81001; 83605; 83690; 83735; 83880; 84443; 84484; 85025; 86140; 86308; 87086; 87186; 87631; 93005; 94761; 96360; 99284; 99285; J7050

== ENCOUNTER 2024-05-13 21:52 | Outpatient (CLI) | payer OTHER, SELFPAY | END 2024-05-13 21:53 | disposition home or self-care (01) | LOC: AMB 05-23 02:27 | PROVIDERS: PCP Family Medicine; Visit Provider Family Medicine | DX: R53.1 Weakness (principal); R11.2 Nausea with vomiting, unspecified | CPT/HCPCS: A0425; A0427 ==

== ENCOUNTER 2024-05-13 22:22 | Inpatient (IN) | payer OTHER, SELFPAY ==
--- OUTSIDE RECORDS SUMMARY | 2024-05-13 22:24 | XMS_ITS | Clinical Summary ---
Author Organization [employer] [facility] Address [place], [place] [address] Care Team Providers Care Professor Of Communication Name Role Phone Alcides Gonzalez MD Primary Care Provider [phone] Allergies Active Allergy Reactions Criticality Noted Date Comments Gabapentin Rash Low 09/18/2020 Hydrocodone Nausea Only Low 09/18/2020 Levothyroxine Sodium Rash,Itching 06/16/2013 Can take synthroid, not generic-Levothyrox ine Hydrocodone-Acetaminophe n Nausea And Vomiting 06/16/2013 Medications citalopram (CELEXA) 20 mg tabletIndications:A nemia, unspecified,Diarrhe a,GI bleeding,Gastric erosions,Gastric and duodenal angiodysplasia Take 1 tablet by mouth once daily. 0 4 Active hydrochlorothiazide (HCTZ) 25 mg tabletIndications:A nemia, unspecified,Diarrhe a,GI bleeding,Gastric erosions,Gastric and duodenal angiodysplasia Take 1 tablet by mouth once daily. 0 4 Active metoprolol succinate (TOPROL XL) 25 mg Sustained-Release tabletIndications:A nemia, unspecified,Diarrhe a,GI bleeding,Gastric erosions,Gastric and duodenal angiodysplasia Take 75 mg by mouth once daily. 0 4 Active levothyroxine (SYNTHROID) 112 mcg tabletIndications:A nemia, unspecified,Diarrhe a,GI bleeding,Gastric erosions,Gastric and duodenal angiodysplasia Take 1 tablet by mouth before breakfast. 0 4 Active omeprazole (PRILOSEC) 20 mg capsuleIndications: Anemia, unspecified,Diarrhe a,GI bleeding,Gastric erosions,Gastric and duodenal angiodysplasia Take 1 capsule by mouth once daily before a meal. 0 4 Active hydroxychloroquine (PLAQUENIL) 200 mg tabletIndications:A nemia, unspecified,Diarrhe a,GI bleeding,Gastric erosions,Gastric and duodenal angiodysplasia Take by mouth once daily. 0 4 Active ASCORBATE CALCIUM (VITAMIN C ORAL) Take 65-125 mg by mouth 3 times daily. Active FLAXSEED OIL ORAL Take by mouth once daily. Active apixaban (ELIQUIS) 5 mg tablet 0 Active buPROPion (WELLBUTRIN XL) 150 mg Extended-Release tablet Daily 1 Active Ferrous Gluconate 324 mg (38 mg iron) tablet Daily Active Breo Ellipta 200mcg/25mcg inhaler 1 Active furosemide (LASIX) 20 mg tablet Daily 0 Active leflunomide (ARAVA) 10 mg tablet Daily 1 Active loperamide (IMODIUM) 2 mg capsule Daily Active oxybutynin XL (DITROPAN XL) 5 mg CR tablet Daily 1 Active predniSONE (DELTASONE) 5 mg tablet 1 Active ENTRESTO 97 MG-103 MG TABLET 97-103 mg tablet 1 Active ENTRESTO 24 MG-26 MG TABLET 24-26 mg tablet 1 Active spironolactone (ALDACTONE) 25 mg tablet Daily 1 Active trimethoprim-sulfam ethoxazole, 160-800 mg, (BACTRIM DS, SEPTRA DS) tab Take 1 Tablet by mouth 2 times daily. 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 2013 Atrial fibrillation 06/16/2013 Social History Tobacco Use Types Packs/Day Years [...] Paying Living Expenses Not on file 05/10/2021 Comments Unknown Sex and Gender Information Value Date Recorded Sex Assigned at Not on file Legal 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 Gender Identity Not on file Sexual Orientation Not on file Obstetrics History Last Filed Vital Signs Vital Sign Reading Time Taken Comments Blood Pressure 114/70 12/22/2021 2:00 PM CDT Pulse 78 12/22/2021 2:00 PM CDT Temperature 36.7 C (98 F) 07/12/2013 2:37 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 Respiratory Rate 22 12/22/2021 2:00 PM CDT [...] ag e [birth year]79 1963 Tetanus booster 1965 Pneumococcal series for age 50+ (1 of 1 - PCV) 1995 Zoster (shingles) series for age 50+ (1 of 2) 1995 DEXA/DXA scan for age 65+ 2010 Medicare Wellness for age 65+ 2010 RSV vaccine for adults or (1 - 1-dose 75+ series) 2020 Depression screening for age 12+ 09/01/2023 08/31/2022, 06/26/2022, 06/23/2022, Additional history exists COVID-19 vaccine series ( season) 2024 03/06/2022, 12/11/2021, 01/31/2021, Additional history exists Influenza for age 65+ 01/09/2024 Insurance MEDICARE PART A HB ONLY MEDICARE PART B HB ONLY [place] [address] [place] [id number] [employer] CHOICE PPO MR Care Teams Professor Of Communication Relationship Specialty Start Date End Date Alcides Gonzalez MD PCP - General Family Practice 06/13/13
--- OUTSIDE RECORDS SUMMARY | 2024-05-13 22:24 | XMS_ITS | Continuity of Care Document ---
Author Name [facility] Address Unknown Organization Unknown Address Unknown Procedures FILTER APPLIED:Only known Procedures with Onset Date within the last 5 years Procedure Date Procedure Provider Additiona l Information Status ASSAY OF CALCIUM (38751) Completed ASSAY OF IRON (65126) Co mpleted IRON BINDING TEST (22581) Completed ASSAY OF PARATHORMONE (05146) Completed ASSAY OF URINE CREATININE (18132) Completed ASSAY OF FERRITIN (86815) Completed UR ALBUMIN QUANTITATIVE (07716) Completed ASSAY OF BLOOD/URIC ACID (25569) Completed URINALYSIS AUTO W/SCOPE (30373) Completed RENAL FUNCTION PANEL (80319) Completed COMPLETE CBC AUTOMATED (67435) Completed EVALUATE PT USE OF INHALER (55806) Completed PT EVAL LOW COMPLEX 20 MIN (06871) Completed GAIT TRAINING THERAPY (16742) Completed OT EVAL LOW COMPLEX 30 MIN (94488) Completed BLOOD CULTURE FOR BACTERIA (47076) Completed URINE CULTURE/COLONY COUNT (16149) Completed AGENT NOS ASSAY W/OPTIC (43639) Completed NOS EACH ORGANISM AG IA (45574) Completed COMPLETE CBC AUTOMATED (75271) Completed URINALYSIS AUTO W/SCOPE (13460) Completed POS AIRWAY PRESSURE CPAP (03681) Completed AIRWAY INHALATION TREATMENT (79978) Completed RESP VIRUS 3-5 TARGETS (29938) Completed BLOOD GASES ANY COMBINATION (56585) Completed METABOLIC PANEL TOTAL CA (72519) Completed PROCALCITONIN (PCT) (51358) Completed ASSAY OF NATRIURETIC PEPTIDE (69846) Completed ASSAY OF MAGNESIUM (56628) Completed CT THORAX DX C- (32044) Completed ASSAY OF TROPONIN QUANT (30389) Completed COMPLETE CBC W/AUTO DIFF WBC (14628) Completed ELECTROCARDIOGRAM TRACING (14078) Completed ROUTINE VENIPUNCTURE (19025) Completed MEASURE BLOOD OXYGEN LEVEL (60959) Completed EMERGENCY DEPT VISIT HI MDM (89577) Completed THER/PROPH/DIAG INJ SC/IM (83774) Completed ASSAY THYROID STIM HORMONE (14370) Completed ROUTINE VENIPUNCTURE (51066) Completed COMPLETE CBC W/AUTO DIFF WBC (52009) Completed UR ALBUMIN QUANTITATIVE (03626) Completed RENAL FUNCTION PANEL (95220) Completed ASSAY OF URINE CREATININE (57420) Completed ASSAY OF IRON (16924) Co mpleted IRON BINDING TEST (93824) Completed ASSAY OF BLOOD/URIC ACID (20594) Completed ASSAY OF FERRITIN (87686) Completed ASSAY OF FREE THYROXINE (37520) Completed ASSAY THYROID STIM HORMONE (19570) Completed METABOLIC PANEL TOTAL CA (63082) Completed BLOOD GASES ANY COMBINATION (99587) Completed ASSAY OF LACTIC ACID (48452) Completed ASSAY OF MAGNESIUM (44510) Completed COMPLETE CBC AUTOMATED (46416) Completed C-REACTIVE PROTEIN (10922) Completed PT EVAL LOW COMPLEX 20 MIN (29218) Completed ELECTROCARDIOGRAM TRACING (01389) Completed TX/PRO/DX INJ NEW DRUG ADDON (90411) Completed ASSAY OF CREATININE (36575) Completed COMPLETE CBC W/AUTO DIFF WBC (16415) Completed EMERGENCY DEPT VISIT HI MDM (22354) Completed PROTHROMBIN TIME (62496) Completed THROMBOPLASTIN TIME PARTIAL (17711) Completed THER/PROPH/DIAG INJ IV PUSH (73001) Completed CANALITH REPOSITIONING PROC (94097) Completed MEASURE BLOOD OXYGEN LEVEL (95381) Completed RESP VIRUS 3-5 TARGETS (48577) Completed ASSAY OF TROPONIN QUANT (30048) Completed ASSAY OF NATRIURETIC PEPTIDE (81765) Completed ASSAY OF LIPASE (31494) Completed URINALYSIS AUTO W/SCOPE (15827) Completed COMPREHEN METABOLIC PANEL (26164) Completed CT ABD PELV W/CONTRAST (85514) Completed X-RAY EXAM CHEST 2 VIEWS (26126) Completed ROUTINE VENIPUNCTURE (92952) Completed TX/PRO/DX INJ SAME DRUG INSTRUMENT ROOM TECHNICIAN (82699) Completed COMPLETE CBC W/AUTO DIFF WBC (00992) Completed ASSAY OF BLOOD/URIC ACID (09000) Completed ASSAY OF PARATHORMONE (50694) Completed IRON BINDING TEST (29573) Completed ASSAY OF FERRITIN (55779) Completed ASSAY OF URINE CREATININE (61247) Completed ASSAY OF CALCIUM (07453) Completed UR ALBUMIN QUANTITATIVE (82774) Completed RENAL FUNCTION PANEL (33083) Completed ASSAY OF IRON (70621) Co mpleted ROUTINE VENIPUNCTURE (82480) Completed EMERGENCY DEPT VISIT MOD MDM (00431) Completed THER/PROPH/DIAG INJ IV PUSH (70650) Completed MEASURE BLOOD OXYGEN LEVEL (53122) Completed AIRWAY INHALATION TREATMENT (69006) Completed ELECTROCARDIOGRAM TRACING (14617) Completed METABOLIC PANEL TOTAL CA (15805) Completed COMPLETE CBC W/AUTO DIFF WBC (05644) Completed ASSAY OF NATRIURETIC PEPTIDE (96145) Completed ASSAY OF MAGNESIUM (90075) Completed URINALYSIS AUTO W/SCOPE (03689) Completed HEPATIC FUNCTION PANEL (30151) Completed C-REACTIVE PROTEIN (09840) Completed URINE CULTURE/COLONY COUNT (78883) Completed MICROBE SUSCEPTIBLE [place] (07027) Completed HEMOGLOBIN (16316) Compl eted THER/PROPH/DIAG INJ SC/IM (72641) Completed COMPLETE CBC AUTOMATED (44924) Completed ROUTINE VENIPUNCTURE (75124) Completed Encounters FILTER APPLIED:Only known Encounters with Admission Date within the last 5 years Encounter Location Admission Discharge Billing Code Consultant Teodora hunter Outpatient Alcides Grossmani Outpatient Alcides Nguyenabouni Emergency Shaq Murguia Outpatient Ayaz Agarwal Unknown [id number] Maryam Mclaughlin Outpatient Alcides Nguyenabnolberto Outpatient Ayaz Agarwal Outpatient Dalia Giang Outpatient Andres Doherty Inpatient [id number] Jerrod Mclaughlin Outpatient Dalia bauman
--- OUTSIDE RECORDS SUMMARY | 2024-05-13 22:25 | XMS_ITS | Clinical Summary ---
Author Organization [facility] Address [address] [place] [address] Care Team Providers Care Community Relations Rep Name Role Phone Elsewhere, Pcp Primary Care Provider Unavailabl e Source Comments Patient records contain information from all sites at [facility]. For routine questions regarding patient records, call [phone] during business hours, M-F 8:00 AM - 5:00 PM Central Time. Record requests for emergency care only can be directed to [phone] at any time.[facility] Allergies Active Allergy Reactions Criticality Noted Date Comments Gabapentin Rash Medium 09/18/2020 Hydrocodone-Acetaminophen GI intolerance Medium 2006 Nausea L-Thyroxine Itching Medium 05/12/2010 And boils/blistering Medications * This document contains information received from the source organization and may not represent a complete record from that organization. iron,carbonyl-v itamin C (VITRON-C) 65 mg iron- [address] tablet Take 1 tablet by mouth daily. 03/24/20 17 Active buPROPion XL (WELLBUTRIN XL) 300 mg 24 hr tablet Take 1 tablet by mouth daily. 04/05/20 17 Active citalopram (CeleXA) 20 mg tablet Take 20 mg by mouth daily. 06/16/19 14 Active acetaminophen (TYLENOL) 500 mg tablet Take 2 tablets (1,000 mg total) by mouth every 6 (six) hours as needed for mild pain or score 1-3 of 10, moderate pain or score 4-6 of 10, headaches or fever. 09/05/19 22 Active multivitamin-ir ax-TD-Qd-minera ls (THERAPEUTIC-M) 400 mcg (folic acid) per tablet Take 1 tablet by mouth daily. 11/01/19 22 Active saliva substitution (BIOTENE DRY MOUTH ORAL RINSE) mouthwash Apply 1 application to the mouth or throat as needed (dry mouth). 11/01/19 Active loperamide (IMODIUM A-D) 2 mg capsule Take 1 capsule (2 mg total) by mouth 3 (three) times a day as needed for diarrhea. 11/01/19 Active fluticasone propionate (FLONASE) 50 mcg/actuation nasal spray Administer 2 sprays into each nostril daily. Active epoetin tu (EPOGEN,PROCRIT ) 10,000 Unit/mL injection Inject under the skin every 14 (fourteen) days. Unsure how many units Active cyanocobalamin (VITAMIN B12) 250 mcg tablet Take 250 mcg by mouth daily. Will check dosage Active folic acid 1 mg tablet Take 1 mg by mouth daily. Will check dosage Active DME CPAPIndications :Apnea Sleep Obstructive DME Order 1 each 09/15/19 23 Active Ventolin HFA 90 mcg/actuation inhalerIndicati ons:Dyspnea On Exertion,Chroni c Obstructive Pulmonary Disease (HCC) Inhale 2 puffs every 4 (four) hours as needed for shortness of breath or wheezing. Doesn't take very often 8 g 3 11/06/19 23 Active levothyroxine (SYNTHROID, LEVOTHROID) 137 mcg tablet Take 137 mcg by mouth every morning before breakfast. Active metoprolol succinate (TOPROL-XL) 25 mg 24 hr tablet TAKE 1 TABLET TWICE DAILY DO NOT CRUSH OR CHEW. 180 tablet 3 09/06/19 24 Active Eliquis 5 mg tablet take 1 tablet twice daily 180 tablet 3 09/06/19 24 Active Breo Ellipta 200-25 mcg/dose inhalerIndicati ons:Dyspnea On Exertion,Chroni c Obstructive Pulmonary Disease (HCC) INHALE 1 PUFF EVERY DAY 180 each 3 10/28/19 24 Active metOLazone (Zaroxolyn) 5 mg tablet Take 1 tablet (5 mg total) by mouth as directed. Use if weight is 4lbs greater than target weight 30 tablet 11 12/27/19 24 Active torsemide (Demadex) 20 mg tablet Take 3 tablets (60 mg total) by mouth 2 (two) times a day. 270 tablet 3 12/27/19 24 2024 Active predniSONE (Deltasone) 5 mg tabletIndicatio ns:Arthritis Rheumatoid (HCC) Take 1 tablet (5 mg total) by mouth daily. 90 tablet 1 01/26/20 24 Active hydroxychloroqu ine (PlaqueniL) 200 mg tabletIndicatio ns:Arthritis Rheumatoid (HCC) Take 2 tablets (400 mg total) by mouth every morning. Eye exam due every Jun. 180 tablet 1 04/05/20 24 Active potassium chloride (K-Tab) 20 mEq ER tablet TAKE 1 TABLET (20 MEQ TOTAL) BY MOUTH DIRECTED. USES ONE WITH EVERY TORSEMIDE, OFTEN TAKES 2 PER DAY 120 tablet 5 05/11/19 25 2025 Active spironolactone (ALDACTONE) 25 mg tablet Take 1 tablet (25 mg total) by mouth daily. 90 tablet 3 05/27/19 22 2021 Discontinued dilTIAZem (DILACOR XR/DILT-XR) 120 mg ER capsule Take 120 mg by mouth daily. 09/20/19 22 2021 Discontinued ferrous sulfate 325 mg (65 mg iron) tablet 325 mg of iron daily. 2021 Discontinued ipratropium-alb uteroL (DUONEB) 0.5-2.5 mg/3 mL nebulizer solution Inhale 3 mL by nebulization 4 (four) times a day. 180 mL 11 11/01/19 22 2021 Discontinued potassium chloride (K-TAB) 20 mEq CR tablet Take 1 tablet (20 mEq total) by mouth as directed. Uses one with every torsemide, often takes 2 per day 120 tablet 3 09/14/19 24 2024 Discontinued Active Problems Problem Noted Date Diagnosed [...] Status Post 10/07/2021 Anticoagulant Therapy 10/07/2021 Therapy Detention Antiplatelet 10/07/2021 Anemia Posthemorrhagic Acute (Blood Loss Anemia) 10/07/2021 Azotemia 10/07/2021 Postprocedural Hypertension 10/07/2021 Leukocytosis 10/07/2021 Dyspnea Multifactorial 09/24/2021 Non-ST Elevation Myocardial Infarction Arthroplasty Total Knee Replacement Status Post Right 09/24/2021 Thyroidectomy Status Post 09/24/2021 Anemia Iron Deficiency 09/24/2021 Nodules Pulmonary Multiple 09/24/2021 Mood Disorder 09/24/2021 Gastroesophageal Reflux Disease NOS 09/24/2021 Hypotension 09/24/2021 Osteoarthritis 09/24/2021 Pain Chest 08/31/2021 Acute Diastolic (Congestive) Heart Failure 11/17 Overview (11/17/2018): Added automatically from request for surgery [id number] Apnea Sleep Obstructive 12/13/2017 Overweight Body Mass [...] (11/17/2018): Added automatically from request for surgery [id number] Chronic Diastolic (Congestive) Heart Failure 3 09/24/2021 Encounters Date Type Department Care Team Description 05/03/2024 Refill Division of Nephrology and Hypertension in [place], [place] [address] [place] [address] Luis Agarwal Jr., D.O. Med Refill 04/20/2024 Orders Only Division of Nephrology and Hypertension in [place], [place] [address] [place] [address] External, Ordering Provider, Rich 04/03/2024 Clinical Communication Division of Rheumatology in [place], [place] [address] [place] [phone] Rosa Bolton APRN, C.N.P., M.S. 03/21/2024 3:30 PM RESEARCH SCIENTIST External Outreach Division of Nephrology and Hypertension in [place], [place] [address] [place] [address] Luis Agarwal Jr., D.O. 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 D.OVikas 02/29/2024 Orders Only Division of Nephrology and Hypertension in [place], [place] [address] [place] [phone] Luis Agarwal Jr. D.O. 02/21/2024 1:00 PM CDT Clinical Communication Virtual Review in [place], [place] [address] [place] [address] Pre-visit Intake from Last 3 Months Immunizations Name Administration Dates Next Due HZV (ZOSTAVAX) 05/10/2010 Influenza Split 02/07/2013,02/08/2012 PPSV23 02/09/2011 Td, (Adult) Unspecified 05/12/2010 influenza trivalent high dose (HD)(PF) 6 Family History Medical History Relation Name Comments [...] often do you attend chur ch or orthodox services? More than 4 times per year 03/27/2022 Do you belong to any clubs o r organizations such as tenriism groups, unions, fraternal or athletic groups, or [...] Answer Date Recorded PHQ-2 Score 3 09/24/2021 [facility] - Occupational [...] 27) 10 09/24 Nutrition Answer Date Recorded On average, how many serving s of [...] Bachelor's degree (e.g., BA, AB, BS) 11/12/2018 Comments No Sex and Gender Information Value Date Recorded Sex Assigned at Female 10/06/2017 9:26 AM CDT Legal Sex Female 6:24 PM RESEARCH SCIENTIST Gender Identity Female 10/06/2017 9:26 AM CDT Sexual Orientation Straight 10/06/2017 9: 26 AM CDT Last Filed Vital Signs Vital Sign Reading Time Taken Comments Blood Pressure 126/70 03/21/2024 3:22 PM RESEARCH SCIENTIST Pulse 63 03/21/2024 3:22 PM RESEARCH SCIENTIST Temperature 36.3 C (97.3 F) 11/14/2021 5:40 AM CDT Respiratory Rate 20 07/02/2023 10:3 9 AM RESEARCH SCIENTIST Oxygen Saturation 93% 07/09/2023 1:50 PM RESEARCH SCIENTIST Inhaled Oxygen Concentration - - Weight 70.3 kg (154 lb 15.7 oz) 03/21/2024 3:22 PM RESEARCH SCIENTIST Height 162.5 cm (5' 3.98) 03/21/2024 3:22 PM CS T Body Mass Index 26.62 03/21/2024 3:22 PM RESEARCH SCIENTIST Plan of Treatment Upcoming Encounters Date Type Department Care Team (Latest Contact Info) Description 05/31/2024 1:00 PM RESEARCH SCIENTIST Clinical Communication Virtual Review in [place], [place] [address] [place] [address] 06/01/2024 9:20 AM RESEARCH SCIENTIST Ancillary Procedure Department of Cardiovascular Medicine in [place], [place] [address] [place] [phone] Eloy Cabrera M.D. [address] [place] [phone] 06/01/2024 9:50 AM RESEARCH SCIENTIST Appointment Department of Laboratory Medicine and Pathology, [facility] in [place], [place] [address] [place] [phone] Eloy Cabrera M.D. [address] [place] [phone] 06/01/2024 10:30 AM RESEARCH SCIENTIST Diagnostic Division of Pulmonary Medicine in [place], [place] [address] [place] [phone] Eloy Cabrera M.D. [address] [place] [phone] 06/01/2024 11:45 AM RESEARCH SCIENTIST Appointment Department of Radiology, [facility], in [place], [place] [address] [place] [phone] Eloy Cabrera M.D. [address] [place] [phone] 06/01/2024 3:00 PM RESEARCH SCIENTIST Office Visit Division of Pulmonary Medicine in [place], [place] [address] [place] [phone] Sanjiv Pablo M.B., Ch.B., M.P.H. [address] [place] [phone] 06/27/2024 11:30 AM RESEARCH SCIENTIST Clinical Communication Virtual Review in [place], [place] [address] [place] [phone] 06/27/2024 1:00 PM RESEARCH SCIENTIST Appointment Department of Laboratory Medicine and Pathology, [facility] in [address] [phone] Emi Wilson APRN, Allison., M.S., M.S.N. [address] [place] [phone] 06/27/2024 1:40 PM RESEARCH SCIENTIST Ancillary Procedure Department of Cardiovascular Medicine in [place], [place] [address] [place] [phone] Emi Wilson APRN, Tristian.N.P., M.S., M.S.N. [address] [place] [phone] 06/27/2024 2:00 PM RESEARCH SCIENTIST Appointment Department of Cardiac Rehabilitation in [place], [place] [address] [place] [phone] Emi Wilson APRN, Tristian.N.P., M.S., M.S.N. [address] [place] [phone] 06/27/2024 3:20 PM RESEARCH SCIENTIST Appointment Department of Cardiovascular Diseases in [address] [phone] Emi Wilson APRN, C.NJordan, M.S., M.S.N. [address] [place] [phone] 06/28/2024 10:00 AM RESEARCH SCIENTIST Office Visit Department of Cardiovascular Medicine in [place], [place] [address] [place] [phone] Emi Wilson APRN, C.N.P., M.S., M.S.N. [address] [place] [phone] 06/28/2024 2:00 PM RESEARCH SCIENTIST Office Visit Division of Rheumatology in [place], [place] [address] [place] [phone] Rosa Bolton APRN, C.NChel., M.S. [address] [place] [phone] Health Maintenance Due Date Last Done Comments Thyroid Stimulating Hormone (TSH) test for thyroid function 09/02/2022 09/02/2021, 12/27/2019, 10/28/2018, Additional history exists Depression Screening (Annual PHQ-2) 05/10/2024 Fall Risk Screen (Annual) 05/10/2024 Hydroxychloroquine (PLAQUENI L) Annual Exam 05/11/2024 Sodium Level 07/08/2024 07/09/2023, 06/21/2023, 10/22/2022, Additional history exists Creatinine Level (Kidney Function Test) 09/08/2024 09/09/2023, 07/09/2023, 06/21/2023, Additional history exists Potassium Level 09/08/2024 09/09/2023, 07/09/2023, 06/21/2023, Additional history exists Office Visit for Blood Pressure Check / Re-check 03/21/2025 03/21/2024 DTaP,Tdap,and Td Vaccines (5 - Td or Tdap) 06/06/2030 06/06/2020, 05/12/2010, 02/26/2009, Additional history exists Mammogram Discontinued 03/16/2014 (Perf ormed elsewhere), 03/10/2011 (Performed elsewhere), 01/19/2008 (Performed elsewhere) Pneumococcal vaccine (50+ years) Completed 10/09/2014, 02/09/2011, 01/19/2011, Additional history exists Zoster Vaccines Completed 05/06/2020, 02/29/2020, 01/19/2011, Additional history exists RSV vaccine - (32-3 6 weeks) or 60+ years Completed 02/15/2023 COVID-19 Vaccine Completed 01/29/2024, 02/15/2023, 03/06/2022, Additional history exists Influenza Vaccine Completed 01/29/2024, 02/15/2023, 02/09/2022, Additional history exists HPV Vaccines Aged Out No longer eligi ble based on patient's age to complete this topic IPV Vaccines Aged Out No longer eligi ble based on patient's age to complete this topic Medical Devices Implanted Type Area Toy Consultant Device Identifier Shelf Expiration Date Model / Serial / Lot Rng Anulo Mtrl [facility] - [id number] - [id number] Implanted:Qty: 1 on 10/07/2021 by Clarence Gee M.D. at [facility] Cardiac Valve Prosthesis N/A: Tricuspid Valve Medtronic 05/18/2026 [id number] / [id number] / Vlv Mtrl Epc Tiss 29 - [id number] - [id number] Implanted:Qty: 1 on 10/07/2021 by Clarence Gee M.D. at [facility] Cardiac Valve Prosthesis N/A: Mitral Valve Emerson 11/27/2024 E100-29 M-00 / [id number] / Clp Hrzn Ti 6 Clp Rhett - [id number] Implanted:Qty: 1 on 10/07/2021 by Clarence Gee M.D. at [facility] Hardware e.g. pins/screws/ rods N/A: Chest [employer] [id number] / / J J Tib Insert Sigma 4x10.0 - [place] [id number] Implanted:Qty: 1 on 11/22/2006 Knee Implant Other/Legacy - See Implant Description [employer] Description:Device Manufactu rer - J [employer] J [employer]. Body Location - Other. Left. Device Status Text - [id number] [id number]. J J Sig Patella Oval 35 - [place]ichael [id number] Implanted:Qty: 1 on 11/22/2006 Knee Implant Other/Legacy - See Implant Description [employer] Description:Device Manufactu rer - J [employer] J Orth[employer]. Body Location - Other. Left. Device Status Text - [id number] [id number]. J J Sig Fem Lugged Sz 4.0 Lt - [place] [id number] Implanted:Qty: 1 on 11/22/2006 Knee Implant Other/Legacy - See Implant Description [employer] Description:Device Manufactu rer - J [employer] J Ortho. Body Location - Other. Left. Device Status Text - [id number] [id number]. J J Keel Tray Tib Mb Sz 3.0 - [place] [id number] Implanted:Qty: 1 on 11/22/2006 Knee Implant Other/Legacy - See Implant Description [employer] Description:Device Manufactu rer - J [employer] J Orth[employer]. Body Location - Other. Left. Device Status Text - KNEE [id number]. Misc Other Misc Other Mouth Description:3 lower teeth im planted Misc Other Misc Other Mouth Description:2 teeth implants 2020 Cement Bone Large - [place] [id number] Implanted:Qty: 1 on 11/22/2006 Misc Other Jessica Description:Device Manufactu rer - Jessica Le.. Device Status Text - [id number]. Procedures Procedure Name Priority Date/Time Associated Diagnosis Comments HEMOGLOBIN, B Routine 04/20/2024 2:30 PM RESEARCH SCIENTIST POTASSIUM, S/P Routine 09/09/2023 CREATININE WITH EGFR, S/P Routine 09/09/2023 COMPREHENSIVE METABOLIC PANEL, S/P Routine 07/09/2023 2:54 PM RESEARCH SCIENTIST Sarcoidosis Pulmonary (HCC) THYROID FUNCTION CASCADE, S Routine 09/02/2021 3:51 PM CDT from Last 3 Months or Most Recently Relevant to Health Maintenance Results * (ABNORMAL) Hemoglobin (04/20/2024 2:30 PM RESEARCH SCIENTIST) [facility] EXT Hemoglobin 10.3(L) 12.0 - 16.0 gm/dL [facility] 04/20/2024 2:30 PM RESEARCH SCIENTIST Narrative [facility] - 04/21/2024 12:55 PM RESEARCH SCIENTIST External results verified in Extract by Radha Escalante on 04/21/2024 at 12:54 PM. us Ordering Provider External M.D. LAB BLOOD ADD-ON Final Result Performing Organization Address [facility] Co de Phone Number [facility] [address] [phone] * Potassium (09/09/2023) [facility] EXT Potassium 4.3 3.6 - 5.1 [facility] Blood (Blood, Venous) us Rosa Bolton APRN, C.N.P., M.S. LAB BLOOD AD D-ON Final Result Performing Organization Address [facility] Co de Phone Number [facility] [address] [phone] * Creatinine with Estimated GFR (09/09/2023) [facility] EXT Estimated GFR (eGFR) 35 [facility] EXT Creatinine 1.5 0.5 - 1.5 mg/dL [facility] Blood (Blood, Venous) us Rosa Bolton APRN, C.N.P., M.S. LAB BLOOD AD D-ON Final Result Performing Organization Address [facility] Co de Phone Number [facility] [address] [place] [address], [facility] [phone] * (ABNORMAL) Comprehensive Metabolic Panel (07/09/2023 2:54 PM RESEARCH SCIENTIST) [facility] Potassium, S 5.2 3.6 - 5.2 mmol/L 07/09/2023 4:08 PM RESEARCH SCIENTIST DTL Sodium, S 142 135 - 145 mmol/L 07/09/2023 4:08 PM RESEARCH SCIENTIST DTL Chloride, S 101 98 - 107 mmol/L 07/09/2023 4:08 PM RESEARCH SCIENTIST DTL Bicarbonate, S 27 22 - 29 mmol/L 07/09/2023 4:08 PM RESEARCH SCIENTIST DTL Anion Gap 14 7 - 15 07/09/2023 4:08 PM RESEARCH SCIENTIST DTL BUN (Blood Urea Nitrogen), S 70(H) 6 - 21 mg/dL 07/09/2023 4:08 PM RESEARCH SCIENTIST DTL Creatinine 2.00(H) 0.59 - 1.04 mg/dL 07/09/2023 4:08 PM RESEARCH SCIENTIST DTL Estimated GFR (eGFR) 25(L) >=60 mL/min/BS A 07/09/2023 4:08 PM RESEARCH SCIENTIST DTL Comment: Estimated GFR calculated using the 2020 CKD_EPI creatinine equation. Calcium, Total, S 9.2 8.8 - 10.2 mg/dL 07/09/2023 4:08 PM RESEARCH SCIENTIST DTL Glucose, S 108 70 - 140 mg/dL 07/09/2023 4:08 PM RESEARCH SCIENTIST DTL Protein, Total, S 7.3 6.3 - 7.9 g/dL 07/09/2023 4:08 PM RESEARCH SCIENTIST DTL Albumin, S 4.6 3.5 - 5.0 g/dL 07/09/2023 4:08 PM RESEARCH SCIENTIST DTL Aspartate Aminotransferase (AST), S 27 8 - 43 U/L 07/09/2023 4:08 PM RESEARCH SCIENTIST DTL Alkaline Phosphatase, S 210(H) 35 - 104 U/L 07/09/2023 4:08 PM RESEARCH SCIENTIST DTL Alanine Aminotransferase (ALT), S 26 7 - 45 U/L 07/09/2023 4:08 PM RESEARCH SCIENTIST DTL Bilirubin, Total, S 0.8 0.0 - 1.2 mg/dL 07/09/2023 4:08 PM RESEARCH SCIENTIST DTL Blood (Blood, Venous) 07/09/2023 2:54 PM RESEARCH SCIENTIST 07/09/2023 3:19 PM RESEARCH SCIENTIST us Eloy Cabrera M.D. LAB BLOOD ADD-ON Final Resul t Performing Organization Address [facility] Co de Phone Number [facility] [address] [place] [address] * Thyroid Function [place] (09/02/2021 3:51 PM CDT) TSH, Sensitive 2.0 0.3 - 4.2 mIU/L 09/02/2021 4:46 PM CDT DTL Blood (Blood, Venous) 09/02/2021 3:51 PM CDT 09/02/2021 4:21 PM CDT Nina Mora P.A.-C., M.S. LAB BLOOD ADD-O N Final Result Performing Organization Address [facility] Co de Phone Number [facility] [address] [place] [address] from Last 3 Months or Most Recently Relevant to Health Maintenance [place] [address] [facility] Advance Directives For more information, please contact: [phone] Documents on File Type Date Recorded Patient Business Development Officer Expl anation Advance Directives 11/26/2006 12:00 AM [...] Answer Comments Full Code: Discussed Care Teams Community Relations Rep Relationship Specialty Start Date End Date Elsewhere, Pcp PCP - General Internal Medicine 04/08/22
--- OUTSIDE RECORDS SUMMARY | 2024-05-13 22:25 | XMS_ITS ---
Author Organization [facility] Address [address] [place] [address] Care Team Providers Care Process Improvement Manager Name Role Phone Elsewhere, Pcp Primary Care Provider Unavailabl e Procedures Procedure Name Priority Date/Time Associated Diagnosis Comments HEMOGLOBIN, B Routine 04/20/2024 2:30 PM SWITCHBOARD OPERATOR HELPER POTASSIUM, S/P Routine 09/09/2023 CREATININE WITH EGFR, S/P Routine 09/09/2023 COMPREHENSIVE METABOLIC PANEL, S/P Routine 07/09/2023 2:54 PM SWITCHBOARD OPERATOR HELPER Sarcoidosis Pulmonary (HCC) THYROID FUNCTION CASCADE, S [...] headaches or fever. 09/05/19 22 Active multivitamin-ir ka-RB-Gv-minera ls (THERAPEUTIC-M) 400 mcg (folic acid) per tablet Take 1 tablet by mouth daily. 11/01/19 22 Active saliva substitution (BIOTENE DRY MOUTH ORAL RINSE) mouthwash Apply 1 application to the mouth or throat as needed (dry mouth). 11/01/19 22 Active loperamide (IMODIUM A-D) 2 mg capsule Take 1 capsule (2 mg total) by mouth 3 (three) times a day as needed for diarrhea. 11/01/19 22 Active fluticasone propionate (FLONASE) 50 mcg/actuation nasal [...] Status Post 10/07/2021 Anticoagulant Therapy 10/07/2021 Therapy Jail Antiplatelet 10/07/2021 Anemia Posthemorrhagic Acute (Blood Loss [...] (11/17/2018): Added automatically from request for surgery [id number] Apnea Sleep Obstructive 12/13/2017 Overweight Body Mass [...] 05/12/2010 influenza trivalent high dose (HD)(PF) 6 Social History Tobacco Use Types Packs/Day Years [...] How often do you attend chur or yazidi services? More than 4 times per year 03/27/2022 Do you belong to any clubs o r organizations such as adventism groups, unions, fraternal or athletic groups, or [...] Answer Date Recorded PHQ-2 Score 3 09/24/2021 [facility] [place] of Occupat ional Health - Occupational Stress [...] place to sleep or slept in a long-term (including now)? No 03/27/2022 Depression Answer Date [...] AM CDT Legal Sex Female 6:24 PM SWITCHBOARD OPERATOR HELPER Gender Identity Female 10/06/2017 9:26 AM CDT Sexual Orientation Straight 10/06/2017 9: 26 AM CDT Last Filed Vital Signs Vital Sign Reading Time Taken Comments Blood Pressure 126/70 03/21/2024 3:22 PM SWITCHBOARD OPERATOR HELPER Pulse 63 03/21/2024 3:22 PM SWITCHBOARD OPERATOR HELPER Temperature 36.3 C (97.3 F) 11/14/2021 5:40 AM CDT Respiratory Rate 20 07/02/2023 10:3 9 AM SWITCHBOARD OPERATOR HELPER Oxygen Saturation 93% 07/09/2023 1:50 PM SWITCHBOARD OPERATOR HELPER Inhaled Oxygen Concentration - - Weight 70.3 kg (154 lb 15.7 oz) 03/21/2024 3:22 PM SWITCHBOARD OPERATOR HELPER Height 162.5 cm (5' 3.98) 03/21/2024 3:22 PM CS T Body Mass Index 26.62 03/21/2024 3:22 PM SWITCHBOARD OPERATOR HELPER Results * (ABNORMAL) Hemoglobin (04/20/2024 2:30 PM SWITCHBOARD OPERATOR HELPER) EXT Hemoglobin 10.3(L) 12.0 - 16.0 gm/dL [facility] 04/20/2024 2:30 PM SWITCHBOARD OPERATOR HELPER Narrative [facility] - 04/21/2024 12:55 PM SWITCHBOARD OPERATOR HELPER External results verified in Extract by Radha Escalante on 04/21/2024 at 12:54 PM. us Ordering Provider External M.D. LAB BLOOD ADD-ON Final Result Performing Organization Address [facility]/ZIP Co de Phone Number [facility] [address] [phone] * Potassium (09/09/2023) Pathologist [facility] EXT Potassium 4.3 3.6 - 5.1 [facility] Blood (Blood, Venous) Tristian Thompson APRN.N.P., M.S. LAB BLOOD AD D-ON Final Result Performing Organization Address [facility] Co de Phone Number [facility] [address] [phone] * Creatinine with Estimated GFR (09/09/2023) [facility] EXT Estimated GFR (eGFR) 35 [facility] EXT Creatinine 1.5 0.5 - 1.5 mg/dL [facility] Blood (Blood, Venous) Tristian Thompson APRN.N.P., M.S. LAB BLOOD AD D-ON Final Result Performing Organization Address [facility] Co de Phone Number [facility] [address] [place] [address], [facility] [[email or web address]] [phone] * (ABNORMAL) Comprehensive Metabolic Panel (07/09/2023 2:54 PM SWITCHBOARD OPERATOR HELPER) [facility] Potassium, S 5.2 3.6 - 5.2 mmol/L 07/09/2023 4:08 PM SWITCHBOARD OPERATOR HELPER DTL Sodium, S 142 135 - 145 mmol/L 07/09/2023 4:08 PM SWITCHBOARD OPERATOR HELPER DTL Chloride, S 101 98 - 107 mmol/L 07/09/2023 4:08 PM SWITCHBOARD OPERATOR HELPER DTL Bicarbonate, S 27 22 - 29 mmol/L 07/09/2023 4:08 PM SWITCHBOARD OPERATOR HELPER DTL Anion Gap 14 7 - 15 07/09/2023 4:08 PM SWITCHBOARD OPERATOR HELPER DTL BUN (Blood Urea Nitrogen), S 70(H) 6 - 21 mg/dL 07/09/2023 4:08 PM SWITCHBOARD OPERATOR HELPER DTL Creatinine 2.00(H) 0.59 - 1.04 mg/dL 07/09/2023 4:08 PM SWITCHBOARD OPERATOR HELPER DTL Estimated GFR (eGFR) 25(L) >=60 mL/min/BS A 07/09/2023 4:08 PM SWITCHBOARD OPERATOR HELPER DTL Comment: Estimated GFR calculated using the 2020 CKD_EPI creatinine equation. Calcium, Total, S 9.2 8.8 - 10.2 mg/dL 07/09/2023 4:08 PM SWITCHBOARD OPERATOR HELPER DTL Glucose, S 108 70 - 140 mg/dL 07/09/2023 4:08 PM SWITCHBOARD OPERATOR HELPER DTL Protein, Total, S 7.3 6.3 - 7.9 g/dL 07/09/2023 4:08 PM SWITCHBOARD OPERATOR HELPER DTL Albumin, S 4.6 3.5 - 5.0 g/dL 07/09/2023 4:08 PM SWITCHBOARD OPERATOR HELPER DTL Aspartate Aminotransferase (AST), S 27 8 - 43 U/L 07/09/2023 4:08 PM SWITCHBOARD OPERATOR HELPER DTL Alkaline Phosphatase, S 210(H) 35 - 104 U/L 07/09/2023 4:08 PM SWITCHBOARD OPERATOR HELPER DTL Alanine Aminotransferase (ALT), S 26 7 - 45 U/L 07/09/2023 4:08 PM SWITCHBOARD OPERATOR HELPER DTL Bilirubin, Total, S 0.8 0.0 - 1.2 mg/dL 07/09/2023 4:08 PM SWITCHBOARD OPERATOR HELPER DTL Blood (Blood, Venous) 07/09/2023 2:54 PM SWITCHBOARD OPERATOR HELPER 07/09/2023 3:19 PM SWITCHBOARD OPERATOR HELPER us Eloy Cabrera M.D. LAB BLOOD ADD-ON Final Resul t [facility] [address] [place] [address], [facility] [[email or web address]] DTL [facility] [address] [place] [address] * Thyroid Function [place] (09/02/2021 3:51 PM CDT) TSH, Sensitive 2.0 0.3 - 4.2 mIU/L 09/02/2021 4:46 PM CDT DTL Blood (Blood, Venous) 09/02/2021 3:51 PM CDT 09/02/2021 4:21 PM CDT Nina Mora P.A.-C., M.S. LAB BLOOD ADD-O N Final Result [facility] [address] [place] [address], [facility] [[email or web address]] [facility] [address] [place] [address] from Last 3 Months or Most Recently Relevant to Health Maintenance
--- OUTSIDE RECORDS SUMMARY | 2024-05-13 22:25 | XMS_ITS ---
Author Organization [facility] Address [address] [place] [address] Care Team Providers Care Plastic Surgeon Name Role Phone Unavailable Unavailable Unavailable Surgery Details Not on file Complications Check Surgery Details section. Procedure Estimated Blood Loss Check Surgery Details section. Procedure Findings Check Surgery Details section. Procedure Specimens Taken Check Surgery Details section.
--- OUTSIDE RECORDS SUMMARY | 2024-05-13 22:25 | XMS_ITS | Referral Summary ---
Author Organization [facility] Address [address] [place] [address] Care Team Providers Care Diamond Die Polisher Name Role Phone Elsewhere, Pcp Primary Care Provider Unavailabl e Source Comments Patient records contain information from all sites at [facility]. For routine questions regarding patient records, call [phone] during business hours, M-F 8:00 AM - 5:00 PM Central Time. Record requests for emergency care only can be directed to [phone] at any time.[facility] Encounters Date Type Department Care Team Description 05/03/2024 Refill Division of Nephrology and Hypertension in [place], [place] [address] [place] [phone] Luis Agarwal Jr., D.O. Med Refill 04/20/2024 Orders Only Division of Nephrology and Hypertension in [place], [place] [address] [place] [phone] External, Ordering Provider, Rich 04/03/2024 Clinical Communication Division of Rheumatology in [place], [place] [address] [place] [phone] Rosa Bolton APRN, C.N.P., M.S. 03/21/2024 3:30 PM FARMWORKER BULBS External Outreach Division of Nephrology and Hypertension in [place], [place] [address] [place] [phone] Luis Agarwal Jr., D.O. Chronic Kidney Disease [...] Documentation Division of Nephrology and Hypertension in [place], [place] [address] [place] [phone] Luis Agarwal Jr., D.O. 02/29/2024 Orders Only Division of Nephrology and Hypertension in [place], [place] [address] [place] [phone] Luis Agarwal Jr., D.O. 02/21/2024 1:00 PM CDT Clinical Communication Virtual Review in [place], [place] [address] [place] [address] Pre-visit Intake from Last 3 Months Allergies Active Allergy [...] headaches or fever. 09/05/19 22 Active multivitamin-ir si-CW-Yt-minera ls (THERAPEUTIC-M) 400 mcg (folic acid) per tablet Take 1 tablet by mouth daily. 11/01/19 Active saliva substitution (BIOTENE DRY MOUTH ORAL [...] Status Post 10/07/2021 Anticoagulant Therapy 10/07/2021 Therapy Longterm Antiplatelet 10/07/2021 Anemia Posthemorrhagic Acute (Blood Loss [...] (11/17/2018): Added automatically from request for surgery [id number] Apnea Sleep Obstructive 12/13/2017 Overweight Body Mass [...] (11/17/2018): Added automatically from request for surgery [id number] Chronic Diastolic (Congestive) Heart Failure 3 09/24/2021 [...] often do you attend chur ch or adventism services? More than 4 times per year 03/27/2022 Do you belong to any clubs o r organizations such as congregation groups, unions, fraternal or athletic groups, or [...] Answer Date Recorded PHQ-2 Score 3 09/24/2021 [facility] - Occupational Stress Questionnaire Answer [...] AM CDT Legal Sex Female 6:24 PM FARMWORKER BULBS Gender Identity Female 10/06/2017 9:26 AM CDT Sexual Orientation Straight 10/06/2017 9: 26 AM CDT Last Filed Vital Signs Vital Sign Reading Time Taken Comments Blood Pressure 126/70 03/21/2024 3:22 PM FARMWORKER BULBS Pulse 63 03/21/2024 3:22 PM FARMWORKER BULBS Temperature 36.3 C (97.3 F) 11/14/2021 5:40 AM CDT Respiratory Rate 20 07/02/2023 10:3 9 AM FARMWORKER BULBS Oxygen Saturation 93% 07/09/2023 1:50 PM FARMWORKER BULBS Inhaled Oxygen Concentration - - Weight 70.3 kg (154 lb 15.7 oz) 03/21/2024 3:22 PM FARMWORKER BULBS Height 162.5 cm (5' 3.98) 03/21/2024 3:22 PM CS T Body Mass Index 26.62 03/21/2024 3:22 PM FARMWORKER BULBS Plan of Treatment Upcoming Encounters Date Type Department Care Team (Latest Contact Info) Description 05/31/2024 1:00 PM FARMWORKER BULBS Clinical Communication Virtual Review in [place], [place] [address] [place] [address] 06/01/2024 9:20 AM FARMWORKER BULBS Ancillary Procedure Department of Cardiovascular Medicine in [place], [place] [address] [place] [phone] Eloy Cabrera M.D. [address] [place] [phone] 06/01/2024 9:50 AM FARMWORKER BULBS Appointment Department of Laboratory Medicine and Pathology, [facility] in [address] [phone] Eloy Cabrera M.D. [address] [place] [phone] 06/01/2024 10:30 AM FARMWORKER BULBS Diagnostic Division of Pulmonary Medicine in [address] [phone] Eloy Cabrera M.D. [address] [place] [phone] 06/01/2024 11:45 AM FARMWORKER BULBS Appointment Department of Radiology, [facility], in [place], [place] [address] [place] [phone] Eloy Cabrera M.D. [address] [place] [phone] 06/01/2024 3:00 PM FARMWORKER BULBS Office Visit Division of Pulmonary Medicine in [address] [phone] Sanjiv Pablo M.B., Ch.B., M.P.H. [address] [place] [phone] 06/27/2024 11:30 AM FARMWORKER BULBS Clinical Communication Virtual Review in [place], [place] [address] [place] [phone] 06/27/2024 1:00 PM FARMWORKER BULBS Appointment Department of Laboratory Medicine and Pathology, [facility] in [place], [place] [address] [place] [phone] Emi Wilson APRN, Allison., M.S., M.S.N. [address] [place] [phone] 06/27/2024 1:40 PM FARMWORKER BULBS Ancillary Procedure Department of Cardiovascular Medicine in [place], [place] [address] [place] [phone] Emi Wilson APRN, Allison., M.S., M.S.N. [address] [place] [phone] 06/27/2024 2:00 PM FARMWORKER BULBS Appointment Department of Cardiac Rehabilitation in [place], [place] [address] [place] [phone] Emi Wilson APRN, Allison., M.S., M.S.N. [address] [place] [phone] 06/27/2024 3:20 PM FARMWORKER BULBS Appointment Department of Cardiovascular Diseases in [place], [place] [address] [place] [phone] Emi Wilson APRN, C.N.P., M.S., M.S.N. [address] [place] [phone] 06/28/2024 10:00 AM FARMWORKER BULBS Office Visit Department of Cardiovascular Medicine in [place], [place] [address] [place] [phone] Emi Wilson APRN, C.N.P., M.S., M.S.N. [address] [place] [phone] 06/28/2024 2:00 PM FARMWORKER BULBS Office Visit Division of Rheumatology in [place], [place] [address] [place] [phone] Rosa Bolton APRN, C.N.P., M.S. [address] [place] [phone] Medical Devices Implanted Type Area Lead Embedded Software Engineer Device Identifier Shelf Expiration Date Model / Serial / Lot Rng Miguel [facility] Trpd 30 - [id number] - [id number] Implanted:Qty: 1 on 10/07/2021 by Clarence Gee M.D. at [facility] Cardiac Valve Prosthesis N/A: Tricuspid Valve Medtronic 05/18/2026 [id number] / [id number] / Vlv [facility] Epc Tiss 29 - [id number] - [id number] Implanted:Qty: 1 on 10/07/2021 by Clarence Gee M.D. at [facility] Cardiac Valve Prosthesis N/A: Mitral Valve Emerson 11/27/2024 E100-29 M-00 / [id number] / Clp Hrzn Ti 6 Clp Rhett - [id number] Implanted:Qty: 1 on 10/07/2021 by Clarence Gee M.D. at [facility] Hardware e.g. pins/screws/ rods N/A: Chest [employer] [id number] / / J J Tib Insert Sigma 4x10.0 - Carmichael [id number] Implanted:Qty: 1 on 11/22/2006 Knee Implant Other/Legacy - See Implant Description [employer] Description:Device Manufactu rer - J [employer]. Body Location - Other. Left. Device Status Text - KNEE [id number]. J J Sig Patella Oval 35 - [place] [id number] Implanted:Qty: 1 on 11/22/2006 Knee Implant Other/Legacy - See Implant Description [employer] Description:Device Manufactu rer - J [employer]. Body Location - Other. Left. Device Status Text - KNEE [id number]. J J Sig Fem Lugged Sz 4.0 Lt - [place] [id number] Implanted:Qty: 1 on 11/22/2006 Knee Implant Other/Legacy - See Implant Description [employer] Description:Device Manufactu rer - J [employer] J Ortho. Body Location - Other. Left. Device Status Text - KNEE [id number]. J J Keel Tray Tib Mb Sz 3.0 - [place]ichael [id number] Implanted:Qty: 1 on 11/22/2006 Knee Implant Other/Legacy - See Implant Description [employer] Description:Device Manufactu rer - J [employer] J Ortho. Body Location - Other. Left. Device Status Text - KNEE [id number]. Misc Other Misc Other Mouth Description:3 lower teeth im planted Misc Other Misc Other Mouth Description:2 teeth implants 2020 Cement Bone Large - [place] [id number] Implanted:Qty: 1 on 11/22/2006 Misc Other Jessica Description:Device Manufactu rer - Warren Le.. Device Status Text - [id number]. Procedures Procedure Name Priority Date/Time Associated Diagnosis Comments HEMOGLOBIN, B Routine 04/20/2024 2:30 PM FARMWORKER BULBS POTASSIUM, S/P Routine 09/09/2023 CREATININE WITH EGFR, S/P Routine 09/09/2023 COMPREHENSIVE METABOLIC PANEL, S/P Routine 07/09/2023 2:54 PM FARMWORKER BULBS Sarcoidosis Pulmonary (HCC) THYROID FUNCTION CASCADE, S Routine 09/02/2021 3:51 PM CDT from Last 3 Months or Most Recently Relevant to Health Maintenance Results * (ABNORMAL) Hemoglobin (04/20/2024 2:30 PM FARMWORKER BULBS) [facility] EXT Hemoglobin 10.3(L) 12.0 - 16.0 gm/dL [facility] 04/20/2024 2:30 PM FARMWORKER BULBS Narrative [facility] - 04/21/2024 12:55 PM FARMWORKER BULBS External results verified in Extract by Radha Escalante on 04/21/2024 at 12:54 PM. us Ordering Provider External M.D. LAB BLOOD ADD-ON Final Result Performing Organization Address [facility] Co de Phone Number [facility] [address] [phone] * Potassium (09/09/2023) [facility] EXT Potassium 4.3 3.6 - 5.1 [facility] Blood (Blood, Venous) us Rosa Bolton APRN, C.N.P., M.S. LAB BLOOD AD D-ON Final Result Performing Organization Address [facility] Co de Phone Number [facility] [address] [phone] * Creatinine with Estimated GFR (09/09/2023) [facility] EXT Estimated GFR (eGFR) 35 [facility] EXT Creatinine 1.5 0.5 - 1.5 mg/dL [facility] Blood (Blood, Venous) us Rosa Bolton APRN, C.N.P., M.S. LAB BLOOD AD D-ON Final Result Performing Organization Address [facility] Co de Phone Number [facility] [address] [place] [address], [facility] [phone] * (ABNORMAL) Comprehensive Metabolic Panel (07/09/2023 2:54 PM FARMWORKER BULBS) [facility] Potassium, S 5.2 3.6 - 5.2 mmol/L 07/09/2023 4:08 PM FARMWORKER BULBS DTL Sodium, S 142 135 - 145 mmol/L 07/09/2023 4:08 PM FARMWORKER BULBS DTL Chloride, S 101 98 - 107 mmol/L 07/09/2023 4:08 PM FARMWORKER BULBS DTL Bicarbonate, S 27 22 - 29 mmol/L 07/09/2023 4:08 PM FARMWORKER BULBS DTL Anion Gap 14 7 - 15 07/09/2023 4:08 PM FARMWORKER BULBS DTL BUN (Blood Urea Nitrogen), S 70(H) 6 - 21 mg/dL 07/09/2023 4:08 PM FARMWORKER BULBS DTL Creatinine 2.00(H) 0.59 - 1.04 mg/dL 07/09/2023 4:08 PM FARMWORKER BULBS DTL Estimated GFR (eGFR) 25(L) >=60 mL/min/BS A 07/09/2023 4:08 PM FARMWORKER BULBS DTL Comment: Estimated GFR calculated using the 2020 CKD_EPI creatinine equation. Calcium, Total, S 9.2 8.8 - 10.2 mg/dL 07/09/2023 4:08 PM FARMWORKER BULBS DTL Glucose, S 108 70 - 140 mg/dL 07/09/2023 4:08 PM FARMWORKER BULBS DTL Protein, Total, S 7.3 6.3 - 7.9 g/dL 07/09/2023 4:08 PM FARMWORKER BULBS DTL Albumin, S 4.6 3.5 - 5.0 g/dL 07/09/2023 4:08 PM FARMWORKER BULBS DTL Aspartate Aminotransferase (AST), S 27 8 - 43 U/L 07/09/2023 4:08 PM FARMWORKER BULBS DTL Alkaline Phosphatase, S 210(H) 35 - 104 U/L 07/09/2023 4:08 PM FARMWORKER BULBS DTL Alanine Aminotransferase (ALT), S 26 7 - 45 U/L 07/09/2023 4:08 PM FARMWORKER BULBS DTL Bilirubin, Total, S 0.8 0.0 - 1.2 mg/dL 07/09/2023 4:08 PM FARMWORKER BULBS DTL Blood (Blood, Venous) 07/09/2023 2:54 PM FARMWORKER BULBS 07/09/2023 3:19 PM FARMWORKER BULBS us Eloy Cabrera M.D. LAB BLOOD ADD-ON Final Resul t Performing Organization Address City/[facility]/ZIP Co de Phone Number [facility] [address] [place] [address] * Thyroid Function [place] (09/02/2021 3:51 PM CDT) TSH, Sensitive 2.0 0.3 - 4.2 mIU/L 09/02/2021 4:46 PM CDT DTL Blood (Blood, Venous) 09/02/2021 3:51 PM CDT 09/02/2021 4:21 PM CDT Nina Mora P.A.-C., M.S. LAB BLOOD ADD-O N Final Result Performing Organization Address City/[facility] Co de Phone Number [facility] [address] [place] [address] from Last 3 Months or Most Recently Relevant to Health Maintenance [place] [address] [facility] Advance Directives For more information, please contact: [phone] Documents on File Type Date Recorded Patient Furnace Setter Expl anation Advance Directives 11/26/2006 12:00 AM [...] Answer Comments Full Code: Discussed Care Teams Diamond Die Polisher Relationship Specialty Start Date End Date Elsewhere, Pcp PCP - General Internal Medicine 04/08/22
--- OUTSIDE RECORDS SUMMARY | 2024-05-13 22:25 | XMS_ITS | Encounter Summary ---
Author Organization [facility] Address [address] [place] [address] Care Team Providers Care Computer Systems Software Engineer Name Role Phone Elsewhere, Pcp Primary Care Provider Unavailabl e Reason for Visit * Reason Comments Med Refill Encounter Details Date Type Department Care Team (Late st Contact Info) Description 05/03/2024 Refill Division of Nephrology and Hypertension in [place], [place] [address] [place] [phone] Luis Agarwal Jr., D.O. [address] [place] [phone] Med Refill Social History Tobacco Use Types [...] often do you attend chur ch or yazdanism services? More than 4 times [...] AM CDT Legal Sex Female 6:[address] ENGINEERING TEACHER Gender Identity Female 10/06/2017 9:26 AM CDT Sexual Orientation Straight 10/06/2017 9: 26 AM CDT documented as of this encounter Plan of Treatment Upcoming Encounters Date Type Department Care Team (Latest Contact Info) Description 05/31/2024 1:[address] ENGINEERING TEACHER Clinical Communication Virtual Review in [place] [address] [place] [address] 06/01/2024 9:[address] ENGINEERING TEACHER Ancillary Procedure Department of Cardiovascular Medicine in [place], [place] [address] [place] [phone] Eloy Cabrera M.D. [address] [place] [phone] 06/01/2024 9:[address] ENGINEERING TEACHER Appointment Department of Laboratory Medicine and Pathology, [facility] in [place], [place] [address] [place] [phone] Eloy Cabrera M.D. [address] [place] [phone] 06/01/2024 10:[address] ENGINEERING TEACHER Diagnostic Division of Pulmonary Medicine in [place], [place] [address] [place] [phone] Eloy Cabrera M.D. [address] [place] [phone] 06/01/2024 11:[address] ENGINEERING TEACHER Appointment Department of Radiology, [facility] in [address] [phone] Eloy Cabrera M.D. [address] [place] [phone] 06/01/2024 3:[address] ENGINEERING TEACHER Office Visit Division of Pulmonary Medicine in [address] [phone] Sanjiv Pablo M.B., Ch.B., M.P.H. [address] [place] [phone] 06/27/2024 11:[address] ENGINEERING TEACHER Clinical Communication Virtual Review in [place], [place] 200 [place] [phone] 06/27/2024 1:[address] ENGINEERING TEACHER Appointment Department of Laboratory Medicine and Pathology, [facility] in [place], [place] [address] [place] [address] Emi Wilson APRN, FaustinaNChel., M.S., M.S.N. [address] [place] [phone] 06/27/2024 1:[address] ENGINEERING TEACHER Ancillary Procedure Department of Cardiovascular Medicine in [place], [place] [address] [place] [address] Eim Wilson APRN, Allison., M.S., M.S.N. [address] [place] [phone] 06/27/2024 2:[address] ENGINEERING TEACHER Appointment Department of Cardiac Rehabilitation in [place], [place] [address] [place] [address] Emi Wilson APRN, Bjorn, M.S., M.S.N. [address] [place] [phone] 06/27/2024 3:[address] ENGINEERING TEACHER Appointment Department of Cardiovascular Diseases in [place], [place] [address] [place] [phone] Emi Wilson APRN, FaustinaNChel., M.S., M.S.N. [address] [place] [phone] 06/28/2024 10:[address] ENGINEERING TEACHER Office Visit Department of Cardiovascular Medicine in [place], [place] [address] [place] [phone] Emi Wilson APRN, C.NJordan, M.S., M.S.N. [address] [place] [phone] 06/28/2024 2:[address] ENGINEERING TEACHER Office Visit Division of Rheumatology in [place], [place] [address] [place] [phone] Rosa Bolton APRN, C.N.P., M.S. [address] [place] [phone] documented as of this encounter Visit Diagnoses Not on filedocumented in this encounter Additional Health Concerns Assessment Noted Time PHQ-9 Depression Total Score: 10 09/24/ 022 2:00 PM CDT documented as of this encounter Care Teams Computer Systems Software Engineer Relationship Specialty Start Date End Date Elsewhere, Pcp PCP - General Internal Medicine 04/08/22 documented as of this encounter
--- OUTSIDE RECORDS SUMMARY | 2024-05-13 22:26 | XMS_ITS | Encounter Summary ---
Author Organization [facility] Address [address] [place] [address] Care Team Providers Care Pipe Turner Name Role Phone Elsewhere, Pcp Primary Care Provider Unavailabl e Encounter Details Date Type Department Care Team (Late st Contact Info) Description 04/03/2024 Clinical Communication Division of Rheumatology in [place], [place] [address] [place] [address] Rosa Bolton, DIPAK, C.N.P., M.S. [address] [place] [phone] Social History Tobacco Use Types Packs/Day Years [...] How often do you attend chur or jewish services? More than 4 times per year 03/27/2022 Do you belong to any clubs o r organizations such as confucianism groups, unions, fraternal or athletic groups, or [...] Answer Date Recorded PHQ-2 Score 3 09/24/2021 [facility] - [...] place to sleep or slept in a mcfp (including now)? No 03/27/2022 Depression Answer Date [...] AM CDT Legal Sex Female 6:24 PM ENVIRONMENT FRIENDLY LANDSCAPE DESIGNER Gender Identity Female 10/06/2017 9:26 AM CDT Sexual Orientation Straight 10/06/2017 9: 26 AM CDT documented as of this encounter Miscellaneous Notes * Telephone Encounter - Ana Pisano R.N. - 04/05/2024 7:29 AM ENVIRONMENT FRIENDLY LANDSCAPE DESIGNER Prescription renewal request for hydroxychloroquine (Plaquenil) received from patient. HISTORY OF PRESENT ILLNESS Last Rheum / VASC visit: 07/06/2023 with Rosa Bolton APRN, CNP Future office visit: 06/28/2024 Last monitoring retinal screening exam: 09/09/2023: results within parameters Prescription request matches current plan of care. Prescription request matches a current prescription in the Medication List. Exclusion criteria: Hydroxychloroquine ECG alert. Last EC06/21/2023 QT level: 392 ASSESSMENT/PLAN Prescription request pended for provider review due to hydroxychloroquine ECG alert. RONMENT FRIENDLY LANDSCAPE DESIGNER RONMENT FRIENDLY LANDSCAPE DESIGNER documented in this encounter Plan of Treatment Upcoming Encounters Date Type Department Care Team (Latest Contact Info) Description 05/31/2024 1:00 PM ENVIRONMENT FRIENDLY LANDSCAPE DESIGNER Clinical Communication Virtual Review in [place], [place] 200 [place] [address] 06/01/2024 9:20 AM ENVIRONMENT FRIENDLY LANDSCAPE DESIGNER Ancillary Procedure Department of Cardiovascular Medicine in [address] [phone] Eloy Cabrera M.D. [address] [place] [phone] 06/01/2024 9:50 AM ENVIRONMENT FRIENDLY LANDSCAPE DESIGNER Appointment Department of Laboratory Medicine and Pathology, [facility] in [place], [place] [address] [place] [phone] Eloy Cabrera M.D. [address] [place] [phone] 06/01/2024 10:30 AM ENVIRONMENT FRIENDLY LANDSCAPE DESIGNER Diagnostic Division of Pulmonary Medicine in [place], [place] [address] [place] [phone] Eloy Cabrera M.D. [address] [place] [phone] 06/01/2024 11:45 AM ENVIRONMENT FRIENDLY LANDSCAPE DESIGNER Appointment Department of Radiology, [facility], in [place], [place] [address] [place] [phone] Eloy Cabrera M.D. [address] [place] [phone] 06/01/2024 3:00 PM ENVIRONMENT FRIENDLY LANDSCAPE DESIGNER Office Visit Division of Pulmonary Medicine in [place], [place] [address] [place] [phone] Sanjiv Pablo M.B., Ch.B., M.P.H. [address] [place] [phone] 06/27/2024 11:30 AM ENVIRONMENT FRIENDLY LANDSCAPE DESIGNER Clinical Communication Virtual Review in [place], [place] 200 [place] [phone] 06/27/2024 1:00 PM ENVIRONMENT FRIENDLY LANDSCAPE DESIGNER Appointment Department of Laboratory Medicine and Pathology, [facility], in [place], [place] [address] [place] [phone] Emi Wilson APRN, Tristian.N.P., M.S., M.S.N. [address] [place] [phone] 06/27/2024 1:40 PM ENVIRONMENT FRIENDLY LANDSCAPE DESIGNER Ancillary Procedure Department of Cardiovascular Medicine in [place], [place] [address] [place] [phone] Emi Wilson APRN, C.N.P., M.S., M.S.N. [address] [place] [phone] 06/27/2024 2:00 PM ENVIRONMENT FRIENDLY LANDSCAPE DESIGNER Appointment Department of Cardiac Rehabilitation in [place], [place] [address] [place] [phone] Emi Wilson APRN, Tristian.N.Ave., M.S., M.S.N. [address] [place] [phone] 06/27/2024 3:20 PM ENVIRONMENT FRIENDLY LANDSCAPE DESIGNER Appointment Department of Cardiovascular Diseases in [place], [place] [address] [place] [phone] Emi Wilson APRN, C.N.P., M.S., M.S.N. [address] [place] [phone] 06/28/2024 10:00 AM ENVIRONMENT FRIENDLY LANDSCAPE DESIGNER Office Visit Department of Cardiovascular Medicine in [place], [place] [address] [place] [phone] Emi Wilson APRN, Allison., M.S., M.S.N. [address] [place] [phone] 06/28/2024 2:00 PM ENVIRONMENT FRIENDLY LANDSCAPE DESIGNER Office Visit Division of Rheumatology in [place], [place] [address] [place] [phone] Rosa Bolton APRN, Tristian.N.P., M.S. [address] [place] [phone] documented as of this encounter Visit Diagnoses Diagnosis Arthritis Rheumatoid (HCC) documented in this encounter Additional Health Concerns Assessment Noted Time PHQ-9 Depression Total Score: 022 2:00 PM CDT documented as of this encounter Care Teams Pipe Turner Relationship Specialty Start Date End Date Elsewhere, Pcp PCP - General Internal Medicine 04/08/22 documented as of this encounter
--- OUTSIDE RECORDS SUMMARY | 2024-05-13 22:26 | XMS_ITS | Encounter Summary ---
Author Organization [facility] Address [address] [place] [address] Care Team Providers Care Beef Specialist Name Role Phone Elsewhere, Pcp Primary Care Provider Unavailabl e Encounter Details Date Type Department Care Team (Late st Contact Info) Description 04/20/2024 Orders Only Division of Nephrology and Hypertension in [place], [place] [address] [place] [address] External, Ordering Provider, Rich Social History Tobacco Use Types Packs/Day Years [...] Answer Date Recorded PHQ-2 Score 3 09/24/2021 [facility] - Occupational [...] AM CDT Legal Sex Female 6:24 PM LIFE SKILLS COORDINATOR Gender Identity Female 10/06/2017 9:26 AM CDT Sexual Orientation Straight 10/06/2017 9: 26 AM CDT documented as of this encounter Plan of Treatment Upcoming Encounters Date Type Department Care Team (Latest Contact Info) Description 05/31/2024 1:00 PM LIFE SKILLS COORDINATOR Clinical Communication Virtual Review in [place], [place] 200 [place] [phone] 06/01/2024 9:20 AM LIFE SKILLS COORDINATOR Ancillary Procedure Department of Cardiovascular Medicine in [place], [place] [address] [place] [phone] Eloy Cabrera M.D. [address] [place] [phone] 06/01/2024 9:50 AM LIFE SKILLS COORDINATOR Appointment Department of Laboratory Medicine and Pathology, [facility] in [place], [place] [address] [place] [phone] Eloy Cabrera M.D. [address] [place] [phone] 06/01/2024 10:30 AM LIFE SKILLS COORDINATOR Diagnostic Division of Pulmonary Medicine in [place], [place] [address] [place] [phone] Eloy Cabrera M.D. [address] [place] [phone] 06/01/2024 11:45 AM LIFE SKILLS COORDINATOR Appointment Department of Radiology, [facility] in [place], [place] [address] [place] [phone] Eloy Cabrera M.D. [address] [place] [phone] 06/01/2024 3:00 PM LIFE SKILLS COORDINATOR Office Visit Division of Pulmonary Medicine in [place], [place] [address] [place] [phone] Sanjiv Pablo M.B., Ch.B., M.P.H. [address] [place] [phone] 06/27/2024 11:30 AM LIFE SKILLS COORDINATOR Clinical Communication Virtual Review in [place], [place] 200 [place] [phone] 06/27/2024 1:00 PM LIFE SKILLS COORDINATOR Appointment Department of Laboratory Medicine and Pathology, [facility] in [place], [place] [address] [place] [phone] Emi Wilson APRN, C.N.P., M.S., M.S.N. [address] [place] [phone] 06/27/2024 1:40 PM LIFE SKILLS COORDINATOR Ancillary Procedure Department of Cardiovascular Medicine in [place], [place] [address] [place] [phone] Emi Wilson APRN, Allison., M.S., M.S.N. [address] [place] [phone] 06/27/2024 2:00 PM LIFE SKILLS COORDINATOR Appointment Department of Cardiac Rehabilitation in [place], [place] [address] [place] [phone] Eim Wilson APRN, Bjorn, M.S., M.S.N. [address] [place] [phone] 06/27/2024 3:20 PM LIFE SKILLS COORDINATOR Appointment Department of Cardiovascular Diseases in [place], [place] [address] [place] [phone] Emi Wilson APRN, Allison., M.S., M.S.N. [address] [place] [phone] 06/28/2024 10:00 AM LIFE SKILLS COORDINATOR Office Visit Department of Cardiovascular Medicine in [place], [place] [address] [place] [phone] Emi Wilson APRN, C.N.P., M.S., M.S.N. [address] [place] [phone] 06/28/2024 2:00 PM LIFE SKILLS COORDINATOR Office Visit Division of Rheumatology in [place], [place] [address] [place] [phone] Rosa Bolton APRN, C.NVikasP., M.S. [address] [place] [phone] documented as of this encounter Procedures Procedure Name Priority Date/Time Associated Diagnosis Comments HEMOGLOBIN, B Routine 04/20/2024 2:30 PM LIFE SKILLS COORDINATOR documented in this encounter Results * (ABNORMAL) Hemoglobin (04/20/2024 2:30 PM LIFE SKILLS COORDINATOR) EXT Hemoglobin 10.3(L) 12.0 - 16.0 gm/dL [facility] 04/20/2024 2:30 PM LIFE SKILLS COORDINATOR Narrative [facility] - 04/21/2024 12:55 PM LIFE SKILLS COORDINATOR External results verified in Extract by Radha Escalante on 04/21/2024 at 12:54 PM. us Ordering Provider External [facility] BLOOD ADD-ON Final Result [facility] [address] [place] [address], [facility] [phone] documented in this encounter Visit Diagnoses Not on filedocumented in this encounter Additional Health Concerns Assessment Noted Time PHQ-9 Depression Total Score: 10 09/24/ 022 2:00 PM CDT documented as of this encounter Care Teams Beef Specialist Relationship Specialty Start Date End Date Elsewhere, Pcp PCP - General Internal Medicine 04/08/22 documented as of this encounter
[2024-05-13 22:27] VITALS: BP 120/74; PULSE 69; RESP 18; TEMP 37.2; O2SAT 96; BMI 24.1
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
[2024-05-13 23:00] VITALS: O2SAT 96
--- OUTSIDE RECORDS SUMMARY | 2024-05-13 23:18 | XMS_ITS | Clinical Summary ---
Author Organization [facility] Address [address] [place] [address] Care Team Providers Care Stitch Bonding Machine Drawer In Name Role Phone Elsewhere, Pcp Primary Care Provider Unavailabl e Source Comments Patient records contain information from all sites at [facility]. For routine questions regarding patient records, call [phone] during business hours, M-F 8:00 AM - 5:00 PM Central Time. Record requests for emergency care only can be directed to [phone] at any time.[facility] Allergies Active Allergy Reactions Criticality Noted Date [...] headaches or fever. 09/05/19 22 Active multivitamin-ir az-AC-Xo-minera ls (THERAPEUTIC-M) 400 mcg (folic acid) per [...] (11/17/2018): Added automatically from request for surgery [id number] Apnea Sleep Obstructive 12/13/2017 Overweight Body Mass [...] (11/17/2018): Added automatically from request for surgery [id number] Chronic Diastolic (Congestive) Heart Failure 3 09/24/2021 Encounters Date Type Department Care Team Description 05/03/2024 Refill Division of Nephrology and Hypertension in [place], [place] [address] [place] [address] Luis Agarwal Jr., D.O. Med Refill 04/20/2024 Orders Only Division of Nephrology and Hypertension in [place], [place] [address] [place] [address] External, Ordering Provider, Rich 04/03/2024 Clinical Communication Division of Rheumatology in [place], [place] [address] [place] [phone] Rosa Bolton APRN, C.N.P., M.S. 03/21/2024 3:30 PM PANEL WIRER External Outreach Division of Nephrology and Hypertension in [place], [place] [address] [place] [address] Luis Agarwal Jr., D.O. Chronic Kidney Disease [...] Documentation Division of Nephrology and Hypertension in [place], [place] [address] [place] [phone] Luis Agarwal Jr. D.OVikas 02/29/2024 Orders Only Division of Nephrology and Hypertension in [place], [place] [address] [place] [phone] uLis Agarwal Jr. D.O. 02/21/2024 1:00 PM CDT Clinical Communication Virtual Review in [place], [place] [address] [place] [phone] Pre-visit Intake from Last 3 Months Immunizations [...] often do you attend chur ch or muslim services? More than 4 times per year 03/27/2022 Do you belong to any clubs o r organizations such as orthodoxy groups, unions, fraternal or athletic groups, or [...] Answer Date Recorded PHQ-2 Score 3 09/24/2021 [facility] of Occupat ional Health [...] AM CDT Legal Sex Female 6:24 PM PANEL WIRER Gender Identity Female 10/06/2017 9:26 AM CDT Sexual Orientation Straight 10/06/2017 9: 26 AM CDT Last Filed Vital Signs Vital Sign Reading Time Taken Comments Blood Pressure 126/70 03/21/2024 3:22 PM PANEL WIRER Pulse 63 03/21/2024 3:22 PM PANEL WIRER Temperature 36.3 C (97.3 F) 11/14/2021 5:40 AM CDT Respiratory Rate 20 07/02/2023 10:3 9 AM PANEL WIRER Oxygen Saturation 93% 07/09/2023 1:50 PM PANEL WIRER Inhaled Oxygen Concentration - - Weight 70.3 kg (154 lb 15.7 oz) 03/21/2024 3:22 PM PANEL WIRER Height 162.5 cm (5' 3.98) 03/21/2024 3:22 PM CS T Body Mass Index 26.62 03/21/2024 3:22 PM PANEL WIRER Plan of Treatment Upcoming Encounters Date Type Department Care Team (Latest Contact Info) Description 05/31/2024 1:00 PM PANEL WIRER Clinical Communication Virtual Review in [place], [place] [address] [place] [address] 06/01/2024 9:20 AM PANEL WIRER Ancillary Procedure Department of Cardiovascular Medicine in [place], [place] [address] [place] [phone] Eloy Cabrera M.D. [address] [place] [phone] 06/01/2024 9:50 AM PANEL WIRER Appointment Department of Laboratory Medicine and Pathology, [facility] in [place], [place] [address] [place] [phone] Eloy Cabrera M.D. [address] [place] [phone] 06/01/2024 10:30 AM PANEL WIRER Diagnostic Division of Pulmonary Medicine in [place], [place] [address] [place] [phone] Eloy Cabrera M.D. [address] [place] [phone] 06/01/2024 11:45 AM PANEL WIRER Appointment Department of Radiology, [facility], in [place], [place] [address] [place] [phone] Eloy Cabrera M.D. [address] [place] [phone] 06/01/2024 3:00 PM PANEL WIRER Office Visit Division of Pulmonary Medicine in [place], [place] [address] [place] [phone] Sanjiv Pablo M.B., Ch.B., M.P.H. [address] [place] [phone] 06/27/2024 11:30 AM PANEL WIRER Clinical Communication Virtual Review in [place], [place] [address] [place] [phone] 06/27/2024 1:00 PM PANEL WIRER Appointment Department of Laboratory Medicine and Pathology, [facility] in [address] [phone] Emi Wilson APRN, Allison., M.S., M.S.N. [address] [place] [phone] 06/27/2024 1:40 PM PANEL WIRER Ancillary Procedure Department of Cardiovascular Medicine in [place], [place] [address] [place] [phone] Emi Wilson APRN, Tristian.N.P., M.S., M.S.N. [address] [place] [phone] 06/27/2024 2:00 PM PANEL WIRER Appointment Department of Cardiac Rehabilitation in [place], [place] [address] [place] [phone] Emi Wilson APRN, Tristian.N.P., M.S., M.S.N. [address] [place] [phone] 06/27/2024 3:20 PM PANEL WIRER Appointment Department of Cardiovascular Diseases in [address] [phone] Emi Wilson APRN, C.NJordan, M.S., M.S.N. [address] [place] [phone] 06/28/2024 10:00 AM PANEL WIRER Office Visit Department of Cardiovascular Medicine in [place], [place] [address] [place] [phone] Emi Wilson APRN, C.N.P., M.S., M.S.N. [address] [place] [phone] 06/28/2024 2:00 PM PANEL WIRER Office Visit Division of Rheumatology in [place], [place] [address] [place] [phone] Rosa Bolton APRN, C.NChel., M.S. [address] [place] [phone] Health Maintenance Due Date Last Done Comments [...] this topic Medical Devices Implanted Type Area Form Worker Device Identifier Shelf Expiration Date Model / Serial / Lot Rng Anulo Mtrl [facility] 30 - [id number] - [id number] Implanted:Qty: 1 on 10/07/2021 by Clarence Gee M.D. at [facility] Cardiac Valve Prosthesis N/A: Tricuspid Valve Medtronic 05/18/2026 [id number] / [id number] / Vlv Mtrl Epc Tiss 29 - [id number] - [id number] Implanted:Qty: 1 on 10/07/2021 by Clarence Gee M.D. at [facility] Cardiac Valve Prosthesis N/A: Mitral Valve Emerson 11/27/2024 E100-29 M-00 / [id number] / Clp Hrzn Ti 6 Clp Rhett - [id number] Implanted:Qty: 1 on 10/07/2021 by Clarence Gee M.D. at [facility] Hardware e.g. pins/screws/ rods N/A: Chest [employer] [id number] / / J J Tib Insert Sigma 4x10.0 - Carmichael [id number] Implanted:Qty: 1 on 11/22/2006 Knee Implant Other/Legacy - See Implant Description [employer] Description:Device Manufactu rer - J & J Ortho. Body Location - Other. Left. Device Status Text - [id number] [id number]. J J Sig Patella Oval 35 - Carmichael [id number] Implanted:Qty: 1 on 11/22/2006 Knee Implant Other/Legacy - See Implant Description [employer] Description:Device Manufactu rer - J [employer] J Ortho. Body Location - Other. Left. Device Status Text - [id number] [id number]. J J Sig Fem Lugged Sz 4.0 Lt - Carmichael [id number] Implanted:Qty: 1 on 11/22/2006 Knee Implant Other/Legacy - See Implant Description [employer] Description:Device Manufactu rer - J & J Ortho. Body Location - Other. Left. Device Status Text - [id number] [id number]. J J Keel Tray Tib Mb Sz 3.0 - Carmichael [id number] Implanted:Qty: 1 on 11/22/2006 Knee Implant Other/Legacy - See Implant Description [employer] Description:Device Manufactu rer - J & J Ortho. Body Location - Other. Left. Device Status Text - [id number] [id number]. Misc Other Misc Other Mouth Description:3 lower teeth im planted Misc Other Misc Other Mouth Description:2 teeth implants 2020 Cement Bone Large - Carmichael [id number] Implanted:Qty: 1 on 11/22/2006 Misc Other Jessica Description:Device Manufactu rer - Jessica Le.. Device Status Text - [id number]. Procedures Procedure Name Priority Date/Time Associated Diagnosis Comments HEMOGLOBIN, B Routine 04/20/2024 2:30 PM PANEL WIRER POTASSIUM, S/P Routine 09/09/2023 CREATININE WITH EGFR, S/P Routine 09/09/2023 COMPREHENSIVE METABOLIC PANEL, S/P Routine 07/09/2023 2:54 PM PANEL WIRER Sarcoidosis Pulmonary (HCC) THYROID FUNCTION CASCADE, S Routine 09/02/2021 3:51 PM CDT from Last 3 Months or Most Recently Relevant to Health Maintenance Results * (ABNORMAL) Hemoglobin (04/20/2024 2:30 PM PANEL WIRER) [facility] EXT Hemoglobin 10.3(L) 12.0 - 16.0 gm/dL [facility] 04/20/2024 2:30 PM PANEL WIRER Narrative [facility] - 04/21/2024 12:55 PM PANEL WIRER External results verified in Extract by Radha Escalante on 04/21/2024 at 12:54 PM. us Ordering Provider External M.D. LAB BLOOD ADD-ON Final Result Performing Organization Address [facility] Co de Phone Number [facility] [address] [phone] * Potassium (09/09/2023) [facility] EXT Potassium 4.3 3.6 - 5.1 [facility] Blood (Blood, Venous) us Rosa Bolton APRN, C.N.P., M.S. LAB BLOOD AD D-ON Final Result Performing Organization Address [facility] Co de Phone Number [facility] [address] [phone] * Creatinine with Estimated GFR (09/09/2023) [facility] EXT Estimated GFR (eGFR) 35 [facility] EXT Creatinine 1.5 0.5 - 1.5 mg/dL [facility] Blood (Blood, Venous) us Rosa Bolton APRN, C.N.P., M.S. LAB BLOOD AD D-ON Final Result Performing Organization Address [facility] Co de Phone Number [facility] [address] [place] [address], [facility] [phone] * (ABNORMAL) Comprehensive Metabolic Panel (07/09/2023 2:54 PM PANEL WIRER) [facility] Potassium, S 5.2 3.6 - 5.2 mmol/L 07/09/2023 4:08 PM PANEL WIRER DTL Sodium, S 142 135 - 145 mmol/L 07/09/2023 4:08 PM PANEL WIRER DTL Chloride, S 101 98 - 107 mmol/L 07/09/2023 4:08 PM PANEL WIRER DTL Bicarbonate, S 27 22 - 29 mmol/L 07/09/2023 4:08 PM PANEL WIRER DTL Anion Gap 14 7 - 15 07/09/2023 4:08 PM PANEL WIRER DTL BUN (Blood Urea Nitrogen), S 70(H) 6 - 21 mg/dL 07/09/2023 4:08 PM PANEL WIRER DTL Creatinine 2.00(H) 0.59 - 1.04 mg/dL 07/09/2023 4:08 PM PANEL WIRER DTL Estimated GFR (eGFR) 25(L) >=60 mL/min/BS A 07/09/2023 4:08 PM PANEL WIRER DTL Comment: Estimated GFR calculated using the 2020 CKD_EPI creatinine equation. Calcium, Total, S 9.2 8.8 - 10.2 mg/dL 07/09/2023 4:08 PM PANEL WIRER DTL Glucose, S 108 70 - 140 mg/dL 07/09/2023 4:08 PM PANEL WIRER DTL Protein, Total, S 7.3 6.3 - 7.9 g/dL 07/09/2023 4:08 PM PANEL WIRER DTL Albumin, S 4.6 3.5 - 5.0 g/dL 07/09/2023 4:08 PM PANEL WIRER DTL Aspartate Aminotransferase (AST), S 27 8 - 43 U/L 07/09/2023 4:08 PM PANEL WIRER DTL Alkaline Phosphatase, S 210(H) 35 - 104 U/L 07/09/2023 4:08 PM PANEL WIRER DTL Alanine Aminotransferase (ALT), S 26 7 - 45 U/L 07/09/2023 4:08 PM PANEL WIRER DTL Bilirubin, Total, S 0.8 0.0 - 1.2 mg/dL 07/09/2023 4:08 PM PANEL WIRER DTL Blood (Blood, Venous) 07/09/2023 2:54 PM PANEL WIRER 07/09/2023 3:19 PM PANEL WIRER us Eloy Cabrera M.D. LAB BLOOD ADD-ON Final Resul t Performing Organization Address [facility] Co de Phone Number [facility] [address] [place] [address] * Thyroid Function [place] (09/02/2021 3:51 PM CDT) TSH, Sensitive 2.0 0.3 - 4.2 mIU/L 09/02/2021 4:46 PM CDT DTL Blood (Blood, Venous) 09/02/2021 3:51 PM CDT 09/02/2021 4:21 PM CDT Nina Mroa P.A.-C., M.S. LAB BLOOD ADD-O N Final Result Performing Organization Address [facility] Co de Phone Number [facility] [address] [place] [address] from Last 3 Months or Most Recently Relevant to Health Maintenance [place] [address] [facility] Advance Directives For more information, please contact: [phone] Documents on File Type Date Recorded Patient Tub Tender Expl anation Advance Directives 11/26/2006 12:00 AM [...] Answer Comments Full Code: Discussed Care Teams Stitch Bonding Machine Drawer In Relationship Specialty Start Date End Date Elsewhere, Pcp PCP - General Internal Medicine 04/08/22
--- OUTSIDE RECORDS SUMMARY | 2024-05-13 23:18 | XMS_ITS | Clinical Summary ---
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 2013 Atrial fibrillation [...] on file Legal Sex Female 5:26 AM HERB DIGGER Gender Identity Not on file Sexual Orientation Not on file Obstetrics History Last Filed Vital Signs Vital Sign Reading Time Taken Comments Blood Pressure 114/70 12/22/2021 2:00 PM CDT Pulse 78 12/22/2021 2:00 PM CDT Temperature 36.7 C (98 F) 07/12/2013 2:37 PM HERB DIGGER Respiratory Rate 22 12/22/2021 2:00 PM CDT [...] HB ONLY MEDICARE PART B HB ONLY [facility] [place] [id number] [employer] CHO[employer] PPO MR Care Teams Lithopress Operator Relationship Specialty Start Date End Date Alcides Gonzalez MD PCP - General Family Practice 06/13/13
--- OUTSIDE RECORDS SUMMARY | 2024-05-13 23:19 | XMS_ITS ---
Author Organization [facility] Address [address] [place] [address] Care Team Providers Care Head Waitress Name Role Phone Elsewhere, Pcp Primary Care Provider Unavailabl e Procedures Procedure Name Priority Date/Time Associated Diagnosis Comments HEMOGLOBIN, B Routine 04/20/2024 2:30 PM PIPE STEM SAWYER POTASSIUM, S/P Routine 09/09/2023 CREATININE WITH EGFR, S/P Routine 09/09/2023 COMPREHENSIVE METABOLIC PANEL, S/P Routine 07/09/2023 2:54 PM PIPE STEM SAWYER Sarcoidosis Pulmonary (HCC) THYROID FUNCTION CASCADE, S [...] headaches or fever. 09/05/19 22 Active multivitamin-ir su-IL-Eu-minera ls (THERAPEUTIC-M) 400 mcg (folic acid) per [...] Status Post 10/07/2021 Anticoagulant Therapy 10/07/2021 Therapy [facility] Antiplatelet 10/07/2021 Anemia Posthemorrhagic Acute (Blood Loss [...] (11/17/2018): Added automatically from request for surgery [id number] Apnea Sleep Obstructive 12/13/2017 Overweight Body Mass [...] How often do you attend chur or pentecostalism services? More than 4 times per year [...] Answer Date Recorded PHQ-2 Score 3 09/24/2021 [facility] of Occupat ional Health - Occupational Stress [...] AM CDT Legal Sex Female 6:24 PM PIPE STEM SAWYER Gender Identity Female 10/06/2017 9:26 AM CDT Sexual Orientation Straight 10/06/2017 9: 26 AM CDT Last Filed Vital Signs Vital Sign Reading Time Taken Comments Blood Pressure 126/70 03/21/2024 3:22 PM PIPE STEM SAWYER Pulse 63 03/21/2024 3:22 PM PIPE STEM SAWYER Temperature 36.3 C (97.3 F) 11/14/2021 5:40 AM CDT Respiratory Rate 20 07/02/2023 10:3 9 AM PIPE STEM SAWYER Oxygen Saturation 93% 07/09/2023 1:50 PM PIPE STEM SAWYER Inhaled Oxygen Concentration - - Weight 70.3 kg (154 lb 15.7 oz) 03/21/2024 3:22 PM PIPE STEM SAWYER Height 162.5 cm (5' 3.98) 03/21/2024 3:22 PM CS T Body Mass Index 26.62 03/21/2024 3:22 PM PIPE STEM SAWYER Results * (ABNORMAL) Hemoglobin (04/20/2024 2:30 PM PIPE STEM SAWYER) EXT Hemoglobin 10.3(L) 12.0 - 16.0 gm/dL [facility] 04/20/2024 2:30 PM PIPE STEM SAWYER Narrative [facility] - 04/21/2024 12:55 PM PIPE STEM SAWYER External results verified in Extract by Radha Escalante on 04/21/2024 at 12:54 PM. us Ordering Provider External M.D. LAB BLOOD ADD-ON Final Result Performing Organization Address [facility]/ZIP Co de Phone Number [facility] [address] [phone] * Potassium (09/09/2023) Pathologist [facility] EXT Potassium 4.3 3.6 - 5.1 [facility] Blood (Blood, Venous) Tristian Thompson APRN.N.P., M.S. LAB BLOOD AD D-ON Final Result Performing Organization Address [facility] Co de Phone Number [facility] [address] [phone] * Creatinine with Estimated GFR (09/09/2023) [facility] EXT Estimated GFR (eGFR) 35 [facility] EXT Creatinine 1.5 0.5 - 1.5 mg/dL [facility] Blood (Blood, Venous) Tristian Thompson APRN.N.P., M.S. LAB BLOOD AD D-ON Final Result Performing Organization Address [facility] Co de Phone Number [facility] [address] [place] [address], [facility] [phone] * (ABNORMAL) Comprehensive Metabolic Panel (07/09/2023 2:54 PM PIPE STEM SAWYER) [facility] Potassium, S 5.2 3.6 - 5.2 mmol/L 07/09/2023 4:08 PM PIPE STEM SAWYER DTL Sodium, S 142 135 - 145 mmol/L 07/09/2023 4:08 PM PIPE STEM SAWYER DTL Chloride, S 101 98 - 107 mmol/L 07/09/2023 4:08 PM PIPE STEM SAWYER DTL Bicarbonate, S 27 22 - 29 mmol/L 07/09/2023 4:08 PM PIPE STEM SAWYER DTL Anion Gap 14 7 - 15 07/09/2023 4:08 PM PIPE STEM SAWYER DTL BUN (Blood Urea Nitrogen), S 70(H) 6 - 21 mg/dL 07/09/2023 4:08 PM PIPE STEM SAWYER DTL Creatinine 2.00(H) 0.59 - 1.04 mg/dL 07/09/2023 4:08 PM PIPE STEM SAWYER DTL Estimated GFR (eGFR) 25(L) >=60 mL/min/BS A 07/09/2023 4:08 PM PIPE STEM SAWYER DTL Comment: Estimated GFR calculated using the 2020 CKD_EPI creatinine equation. Calcium, Total, S 9.2 8.8 - 10.2 mg/dL 07/09/2023 4:08 PM PIPE STEM SAWYER DTL Glucose, S 108 70 - 140 mg/dL 07/09/2023 4:08 PM PIPE STEM SAWYER DTL Protein, Total, S 7.3 6.3 - 7.9 g/dL 07/09/2023 4:08 PM PIPE STEM SAWYER DTL Albumin, S 4.6 3.5 - 5.0 g/dL 07/09/2023 4:08 PM PIPE STEM SAWYER DTL Aspartate Aminotransferase (AST), S 27 8 - 43 U/L 07/09/2023 4:08 PM PIPE STEM SAWYER DTL Alkaline Phosphatase, S 210(H) 35 - 104 U/L 07/09/2023 4:08 PM PIPE STEM SAWYER DTL Alanine Aminotransferase (ALT), S 26 7 - 45 U/L 07/09/2023 4:08 PM PIPE STEM SAWYER DTL Bilirubin, Total, S 0.8 0.0 - 1.2 mg/dL 07/09/2023 4:08 PM PIPE STEM SAWYER DTL Blood (Blood, Venous) 07/09/2023 2:54 PM PIPE STEM SAWYER 07/09/2023 3:19 PM PIPE STEM SAWYER us Eloy Cabrera M.D. LAB BLOOD ADD-ON Final Resul t [facility] [address] [place] [address], [facility] DTL [facility] [address] [place] [address] * Thyroid Function [place] (09/02/2021 3:51 PM CDT) TSH, Sensitive 2.0 0.3 - 4.2 mIU/L 09/02/2021 4:46 PM CDT DTL Blood (Blood, Venous) 09/02/2021 3:51 PM CDT 09/02/2021 4:21 PM CDT Nina Mora P.A.-C., M.S. LAB BLOOD ADD-O N Final Result [facility] [address] [place] [address], [facility] [address] [place] [address] from Last 3 Months or Most Recently Relevant to Health Maintenance
--- OUTSIDE RECORDS SUMMARY | 2024-05-13 23:19 | XMS_ITS | Continuity of Care Document ---
Author Name NwHIN User [facility] Address Unknown Organization Unknown Address Unknown Procedures FILTER APPLIED:Only known Procedures with Onset Date within the last 5 years Procedure Date Procedure Provider Additiona l Information Status ASSAY OF CALCIUM (18806) Completed ASSAY OF IRON (14407) Co mpleted IRON BINDING TEST (81865) Completed ASSAY OF PARATHORMONE (66026) Completed ASSAY OF URINE CREATININE (55072) Completed ASSAY OF FERRITIN (05752) Completed UR ALBUMIN QUANTITATIVE (43390) Completed ASSAY OF BLOOD/URIC ACID (95376) Completed URINALYSIS AUTO W/SCOPE (51555) Completed RENAL FUNCTION PANEL (50343) Completed COMPLETE CBC AUTOMATED (30613) Completed EVALUATE PT USE OF INHALER (38262) Completed PT EVAL LOW COMPLEX 20 MIN (09788) Completed GAIT TRAINING THERAPY (40932) Completed OT EVAL LOW COMPLEX 30 MIN (81855) Completed BLOOD CULTURE FOR BACTERIA (37962) Completed URINE CULTURE/COLONY COUNT (77514) Completed AGENT NOS ASSAY W/OPTIC (15310) Completed NOS EACH ORGANISM AG IA (96274) Completed COMPLETE CBC AUTOMATED (86688) Completed URINALYSIS AUTO W/SCOPE (25674) Completed POS AIRWAY PRESSURE CPAP (63952) Completed AIRWAY INHALATION TREATMENT (30376) Completed RESP VIRUS 3-5 TARGETS (19096) Completed BLOOD GASES ANY COMBINATION (84244) Completed METABOLIC PANEL TOTAL CA (20722) Completed PROCALCITONIN (PCT) (72825) Completed ASSAY OF NATRIURETIC PEPTIDE (15280) Completed ASSAY OF MAGNESIUM (53982) Completed CT THORAX DX C- (37467) Completed ASSAY OF TROPONIN QUANT (78664) Completed COMPLETE CBC W/AUTO DIFF WBC (58334) Completed ELECTROCARDIOGRAM TRACING (88196) Completed ROUTINE VENIPUNCTURE (82061) Completed MEASURE BLOOD OXYGEN LEVEL (05171) Completed EMERGENCY DEPT VISIT HI MDM (98734) Completed THER/PROPH/DIAG INJ SC/IM (74269) Completed ASSAY THYROID STIM HORMONE (57256) Completed ROUTINE VENIPUNCTURE (56784) Completed COMPLETE CBC W/AUTO DIFF WBC (84905) Completed UR ALBUMIN QUANTITATIVE (08552) Completed RENAL FUNCTION PANEL (88854) Completed ASSAY OF URINE CREATININE (68674) Completed ASSAY OF IRON (73756) Co mpleted IRON BINDING TEST (59111) Completed ASSAY OF BLOOD/URIC ACID (88608) Completed ASSAY OF FERRITIN (62092) Completed ASSAY OF FREE THYROXINE (91632) Completed ASSAY THYROID STIM HORMONE (82647) Completed METABOLIC PANEL TOTAL CA (19134) Completed BLOOD GASES ANY COMBINATION (16110) Completed ASSAY OF LACTIC ACID (81958) Completed ASSAY OF MAGNESIUM (49890) Completed COMPLETE CBC AUTOMATED (19439) Completed C-REACTIVE PROTEIN (55234) Completed PT EVAL LOW COMPLEX 20 MIN (24599) Completed ELECTROCARDIOGRAM TRACING (29760) Completed TX/PRO/DX INJ NEW DRUG ADDON (90289) Completed ASSAY OF CREATININE (18394) Completed COMPLETE CBC W/AUTO DIFF WBC (41972) Completed EMERGENCY DEPT VISIT HI MDM (43803) Completed PROTHROMBIN TIME (59960) Completed THROMBOPLASTIN TIME PARTIAL (11977) Completed THER/PROPH/DIAG INJ IV PUSH (57511) Completed CANALITH REPOSITIONING PROC (60495) Completed MEASURE BLOOD OXYGEN LEVEL (26715) Completed RESP VIRUS 3-5 TARGETS (22498) Completed ASSAY OF TROPONIN QUANT (85305) Completed ASSAY OF NATRIURETIC PEPTIDE (48010) Completed ASSAY OF LIPASE (25731) Completed URINALYSIS AUTO W/SCOPE (71162) Completed COMPREHEN METABOLIC PANEL (72793) Completed CT ABD PELV W/CONTRAST (61772) Completed X-RAY EXAM CHEST 2 VIEWS (52935) Completed ROUTINE VENIPUNCTURE (11723) Completed TX/PRO/DX INJ SAME DRUG COMMUNICATIONS FIELD TECHNICIAN (44270) Completed COMPLETE CBC W/AUTO DIFF WBC (19078) Completed ASSAY OF BLOOD/URIC ACID (80912) Completed ASSAY OF PARATHORMONE (49452) Completed IRON BINDING TEST (23232) Completed ASSAY OF FERRITIN (78072) Completed ASSAY OF URINE CREATININE (95997) Completed ASSAY OF CALCIUM (70720) Completed UR ALBUMIN QUANTITATIVE (68321) Completed RENAL FUNCTION PANEL (81478) Completed ASSAY OF IRON (05923) Co mpleted ROUTINE VENIPUNCTURE (79055) Completed EMERGENCY DEPT VISIT MOD MDM (64128) Completed THER/PROPH/DIAG INJ IV PUSH (99812) Completed MEASURE BLOOD OXYGEN LEVEL (09323) Completed AIRWAY INHALATION TREATMENT (52568) Completed ELECTROCARDIOGRAM TRACING (81841) Completed METABOLIC PANEL TOTAL CA (95553) Completed COMPLETE CBC W/AUTO DIFF WBC (82176) Completed ASSAY OF NATRIURETIC PEPTIDE (93549) Completed ASSAY OF MAGNESIUM (90886) Completed URINALYSIS AUTO W/SCOPE (02665) Completed HEPATIC FUNCTION PANEL (05909) Completed C-REACTIVE PROTEIN (15479) Completed URINE CULTURE/COLONY COUNT (98767) Completed MICROBE SUSCEPTIBLE [place] (56799) Completed HEMOGLOBIN (64382) Compl eted THER/PROPH/DIAG INJ SC/IM (00708) Completed COMPLETE CBC AUTOMATED (54266) Completed ROUTINE VENIPUNCTURE (23743) Completed Encounters FILTER APPLIED:Only known Encounters with Admission Date within the last 5 years Encounter Location Admission Discharge Billing Code Consultant Teodora hunter Outpatient Alcides Grossmani Outpatient Alcides Nguyenabouni Emergency Shaq Murguia Outpatient Ayaz Agarwal Unknown [id number] Maryam Mclaughlin Outpatient Alcides Nguyenabnolberto Outpatient Ayaz Agarwal Outpatient Dalia Giang Outpatient Andres Doherty Inpatient [id number] Jerrod Mclaughlin Outpatient Dalia bauman
--- OUTSIDE RECORDS SUMMARY | 2024-05-13 23:19 | XMS_ITS | Referral Summary ---
Author Organization [facility] Address [address] [place] [address] Care Team Providers Care Dental Scheduling Coordinator Name Role Phone Elsewhere, Pcp Primary Care Provider Unavailabl e Source Comments Patient records contain information from all sites at [facility]. For routine questions regarding patient records, call [phone] during business hours, M-F 8:00 AM - 5:00 PM Central Time. Record requests for emergency care only can be directed to [phone] at any time.[facility] Encounters Date Type Department Care Team Description 05/03/2024 Refill Division of Nephrology and Hypertension in [place], [place] [address] [place] [address] Luis Agarwal Jr., D.O. Med Refill 04/20/2024 Orders Only Division of Nephrology and Hypertension in [place], [place] [address] [place] [phone] External, Ordering Provider, Rich 04/03/2024 Clinical Communication Division of Rheumatology in [place], [place] [address] [place] [phone] oRsa Bolton APRN, C.N.P., M.S. 03/21/2024 3:30 PM VARIETY SAW OPERATOR External Outreach Division of Nephrology and Hypertension in [place], [place] [address] [place] [address] Luis Agarwal Jr., D.O. Chronic Kidney Disease [...] Documentation Division of Nephrology and Hypertension in [place], [place] [address] [place] [phone] Luis Agarwal Jr., D.O. 02/29/2024 Orders Only Division of Nephrology and Hypertension in [place], [place] [address] [place] [phone] Luis Agarwal Jr., D.O. 02/21/2024 1:00 PM CDT Clinical Communication Virtual Review in [place], [place] 200 [place] [address] Pre-visit Intake from Last 3 Months Allergies [...] headaches or fever. 09/05/19 22 Active multivitamin-ir fp-PJ-Br-minera ls (THERAPEUTIC-M) 400 mcg (folic acid) per [...] Status Post 10/07/2021 Anticoagulant Therapy 10/07/2021 Therapy [facility] Antiplatelet 10/07/2021 Anemia Posthemorrhagic Acute (Blood Loss [...] (11/17/2018): Added automatically from request for surgery [id number] Apnea Sleep Obstructive 12/13/2017 Overweight Body Mass [...] (11/17/2018): Added automatically from request for surgery [id number] Chronic Diastolic (Congestive) Heart Failure 3 09/24/2021 [...] often do you attend chur ch or denominational services? More than 4 times per year 03/27/2022 Do you belong to any clubs o r organizations such as denominational groups, unions, fraternal or athletic groups, or [...] Answer Date Recorded PHQ-2 Score 3 09/24/2021 [facility]ational [facility] Questionnaire [...] AM CDT Legal Sex Female 6:24 PM VARIETY SAW OPERATOR Gender Identity Female 10/06/2017 9:26 AM CDT Sexual Orientation Straight 10/06/2017 9: 26 AM CDT Last Filed Vital Signs Vital Sign Reading Time Taken Comments Blood Pressure 126/70 03/21/2024 3:22 PM VARIETY SAW OPERATOR Pulse 63 03/21/2024 3:22 PM VARIETY SAW OPERATOR Temperature 36.3 C (97.3 F) 11/14/2021 5:40 AM CDT Respiratory Rate 20 07/02/2023 10:3 9 AM VARIETY SAW OPERATOR Oxygen Saturation 93% 07/09/2023 1:50 PM VARIETY SAW OPERATOR Inhaled Oxygen Concentration - - Weight 70.3 kg (154 lb 15.7 oz) 03/21/2024 3:22 PM VARIETY SAW OPERATOR Height 162.5 cm (5' 3.98) 03/21/2024 3:22 PM CS T Body Mass Index 26.62 03/21/2024 3:22 PM VARIETY SAW OPERATOR Plan of Treatment Upcoming Encounters Date Type Department Care Team (Latest Contact Info) Description 05/31/2024 1:00 PM VARIETY SAW OPERATOR Clinical Communication Virtual Review in [place], [place] [address] [place] [address] 06/01/2024 9:20 AM VARIETY SAW OPERATOR Ancillary Procedure Department of Cardiovascular Medicine in [place], [place] [address] [place] [phone] Eloy Cabrera M.D. [address] [place] [phone] 06/01/2024 9:50 AM VARIETY SAW OPERATOR Appointment Department of Laboratory Medicine and Pathology, [facility] in [address] [phone] Eloy Cabrera M.D. [address] [place] [phone] 06/01/2024 10:30 AM VARIETY SAW OPERATOR Diagnostic Division of Pulmonary Medicine in [address] [phone] Eloy Cabrera M.D. [address] [place] [phone] 06/01/2024 11:45 AM VARIETY SAW OPERATOR Appointment [facility] in [place], [place] [address] [place] [phone] Eloy Cabrera M.D. [address] [place] [phone] 06/01/2024 3:00 PM VARIETY SAW OPERATOR Office Visit Division of Pulmonary Medicine in [address] [phone] Sanjiv Pablo M.B., Ch.B., M.P.H. [address] [place] [phone] 06/27/2024 11:30 AM VARIETY SAW OPERATOR Clinical Communication Virtual Review in [place], [place] [address] [place] [phone] 06/27/2024 1:00 PM VARIETY SAW OPERATOR Appointment Department of Laboratory Medicine and Pathology, [facility] in [place], [place] [address] [place] [phone] Emi Wilson APRN, Allison., M.S., M.S.N. [address] [place] [phone] 06/27/2024 1:40 PM VARIETY SAW OPERATOR Ancillary Procedure Department of Cardiovascular Medicine in [place], [place] [address] [place] [phone] Emi Wilson APRN, Allison., M.S., M.S.N. [address] [place] [phone] 06/27/2024 2:00 PM VARIETY SAW OPERATOR Appointment Department of Cardiac Rehabilitation in [place], [place] [address] [place] [phone] Emi Wilson APRN, Allison., M.S., M.S.N. [address] [place] [phone] 06/27/2024 3:20 PM VARIETY SAW OPERATOR Appointment Department of Cardiovascular Diseases in [place], [place] [address] [place] [phone] Emi Wilson APRN, C.N.P., M.S., M.S.N. [address] [place] [phone] 06/28/2024 10:00 AM VARIETY SAW OPERATOR Office Visit Department of Cardiovascular Medicine in [place], [place] [address] [place] [phone] Emi Wilson APRN, C.N.P., M.S., M.S.N. [address] [place] [phone] 06/28/2024 2:00 PM VARIETY SAW OPERATOR Office Visit Division of Rheumatology in [place], [place] [address] [place] [phone] Rosa Bolton APRN, C.N.P., M.S. [address] [place] [phone] Medical Devices Implanted Type Area Forge Utility Worker Device Identifier Shelf Expiration Date Model / Serial / Lot Rng Miguel [facility] Trpd 30 - [id number] - [id number] Implanted:Qty: 1 on 10/07/2021 by Clarence Gee M.D. at [facility] Cardiac Valve Prosthesis N/A: Tricuspid Valve Medtronic 05/18/2026 [id number] / [id number] / Vlv [facility] Epc Tiss 29 - [id number] - [id number] Implanted:Qty: 1 on 10/07/2021 by Clarence Gee M.D. at [facility] Cardiac Valve Prosthesis N/A: Mitral Valve Emerson 11/27/2024 E100-29 M-00 / [id number] / Clp Hrzn Ti 6 Clp Rhett - [id number] Implanted:Qty: 1 on 10/07/2021 by Clarence Gee M.D. at [facility] Hardware e.g. pins/screws/ rods N/A: Chest [employer] [id number] / / J J Tib Insert Sigma 4x10.0 - [place] [id number] Implanted:Qty: 1 on 11/22/2006 Knee Implant Other/Legacy - See Implant Description [employer] Description:Device Manufactu rer - J [employer] J [employer]o. Body Location - Other. Left. Device Status Text - KNEE [id number]. J J Sig Patella Oval 35 - [place] [id number] Implanted:Qty: 1 on 11/22/2006 Knee Implant Other/Legacy - See Implant Description [employer] Description:Device Manufactu rer - J [employer] Orth[employer]. Body Location - Other. Left. Device Status Text - KNEE [id number]. J J Sig Fem Lugged Sz 4.0 Lt - [place] [id number] Implanted:Qty: 1 on 11/22/2006 Knee Implant Other/Legacy - See Implant Description [employer] Description:Device Manufactu rer - J [employer] J Ortho. Body Location - Other. Left. Device Status Text - KNEE [id number]. J J Keel Tray Tib Mb Sz 3.0 - [place] [id number] Implanted:Qty: 1 on 11/22/2006 Knee Implant Other/Legacy - See Implant Description [employer] Description:Device Manufactu rer - J & J Ortho. Body Location - Other. Left. Device Status Text - KNEE [id number]. Misc Other Misc Other Mouth Description:3 lower teeth im planted Misc Other Misc Other Mouth Description:2 teeth implants 2020 Cement Bone Large - [place] [id number] Implanted:Qty: 1 on 11/22/2006 Misc Other Jessica Description:Device Manufactu rer - Tatum Le.. Device Status Text - MISCOTHER-2840. Procedures Procedure Name Priority Date/Time Associated Diagnosis Comments HEMOGLOBIN, B Routine 04/20/2024 2:30 PM VARIETY SAW OPERATOR POTASSIUM, S/P Routine 09/09/2023 CREATININE WITH EGFR, S/P Routine 09/09/2023 COMPREHENSIVE METABOLIC PANEL, S/P Routine 07/09/2023 2:54 PM VARIETY SAW OPERATOR Sarcoidosis Pulmonary (HCC) THYROID FUNCTION CASCADE, S Routine 09/02/2021 3:51 PM CDT from Last 3 Months or Most Recently Relevant to Health Maintenance Results * (ABNORMAL) Hemoglobin (04/20/2024 2:30 PM VARIETY SAW OPERATOR) [facility] EXT Hemoglobin 10.3(L) 12.0 - 16.0 gm/dL [facility] 04/20/2024 2:30 PM VARIETY SAW OPERATOR Narrative [facility] - 04/21/2024 12:55 PM VARIETY SAW OPERATOR External results verified in Extract by Radha Escalante on 04/21/2024 at 12:54 PM. us Ordering Provider External M.D. LAB BLOOD ADD-ON Final Result Performing Organization Address [facility] Co de Phone Number [facility] [address] [phone] * Potassium (09/09/2023) [facility] EXT Potassium 4.3 3.6 - 5.1 [facility] Blood (Blood, Venous) us Rosa Bolton APRN, C.N.P., M.S. LAB BLOOD AD D-ON Final Result Performing Organization Address [facility] Co de Phone Number [facility] [address] [phone] * Creatinine with Estimated GFR (09/09/2023) [facility] EXT Estimated GFR (eGFR) 35 [facility] EXT Creatinine 1.5 0.5 - 1.5 mg/dL [facility] Blood (Blood, Venous) us Rosa Bolton APRN, C.N.P., M.S. LAB BLOOD AD D-ON Final Result Performing Organization Address [facility] Co de Phone Number [facility] [address] [place] [address], [facility] [phone] * (ABNORMAL) Comprehensive Metabolic Panel (07/09/2023 2:54 PM VARIETY SAW OPERATOR) [facility] Potassium, S 5.2 3.6 - 5.2 mmol/L 07/09/2023 4:08 PM VARIETY SAW OPERATOR DTL Sodium, S 142 135 - 145 mmol/L 07/09/2023 4:08 PM VARIETY SAW OPERATOR DTL Chloride, S 101 98 - 107 mmol/L 07/09/2023 4:08 PM VARIETY SAW OPERATOR DTL Bicarbonate, S 27 22 - 29 mmol/L 07/09/2023 4:08 PM VARIETY SAW OPERATOR DTL Anion Gap 14 7 - 15 07/09/2023 4:08 PM VARIETY SAW OPERATOR DTL BUN (Blood Urea Nitrogen), S 70(H) 6 - 21 mg/dL 07/09/2023 4:08 PM VARIETY SAW OPERATOR DTL Creatinine 2.00(H) 0.59 - 1.04 mg/dL 07/09/2023 4:08 PM VARIETY SAW OPERATOR DTL Estimated GFR (eGFR) 25(L) >=60 mL/min/BS A 07/09/2023 4:08 PM VARIETY SAW OPERATOR DTL Comment: Estimated GFR calculated using the 2020 CKD_EPI creatinine equation. Calcium, Total, S 9.2 8.8 - 10.2 mg/dL 07/09/2023 4:08 PM VARIETY SAW OPERATOR DTL Glucose, S 108 70 - 140 mg/dL 07/09/2023 4:08 PM VARIETY SAW OPERATOR DTL Protein, Total, S 7.3 6.3 - 7.9 g/dL 07/09/2023 4:08 PM VARIETY SAW OPERATOR DTL Albumin, S 4.6 3.5 - 5.0 g/dL 07/09/2023 4:08 PM VARIETY SAW OPERATOR DTL Aspartate Aminotransferase (AST), S 27 8 - 43 U/L 07/09/2023 4:08 PM VARIETY SAW OPERATOR DTL Alkaline Phosphatase, S 210(H) 35 - 104 U/L 07/09/2023 4:08 PM VARIETY SAW OPERATOR DTL Alanine Aminotransferase (ALT), S 26 7 - 45 U/L 07/09/2023 4:08 PM VARIETY SAW OPERATOR DTL Bilirubin, Total, S 0.8 0.0 - 1.2 mg/dL 07/09/2023 4:08 PM VARIETY SAW OPERATOR DTL Blood (Blood, Venous) 07/09/2023 2:54 PM VARIETY SAW OPERATOR 07/09/2023 3:19 PM VARIETY SAW OPERATOR us Eloy Cabrera M.D. LAB BLOOD ADD-ON Final Resul t Performing Organization Address City/[facility]/ZIP Co de Phone Number [facility] [address] [place] [address] * Thyroid Function [place] (09/02/2021 3:51 PM CDT) TSH, Sensitive 2.0 0.3 - 4.2 mIU/L 09/02/2021 4:46 PM CDT DTL Blood (Blood, Venous) 09/02/2021 3:51 PM CDT 09/02/2021 4:21 PM CDT Nina Mora P.A.-C., M.S. LAB BLOOD ADD-O N Final Result Performing Organization Address City/[facility] Co de Phone Number [facility] [address] [place] [address] from Last 3 Months or Most Recently Relevant to Health Maintenance [place] [address] [facility] Advance Directives For more information, please contact: [phone] Documents on File Type Date Recorded Patient Pull Up Hand Expl anation Advance Directives 11/26/2006 12:00 AM [...] Answer Comments Full Code: Discussed Care Teams Dental Scheduling Coordinator Relationship Specialty Start Date End Date Elsewhere, Pcp PCP - General Internal Medicine 04/08/22
--- OUTSIDE RECORDS SUMMARY | 2024-05-13 23:19 | XMS_ITS | Encounter Summary ---
Author Organization [facility] Address [address] [place] [address] Care Team Providers Care Cold Storage Worker Name Role Phone Elsewhere, Pcp Primary Care Provider Unavailabl e Encounter Details Date Type Department Care Team (Late st Contact Info) Description 04/03/2024 Clinical Communication Division of Rheumatology in [place], [place] [address] [place] [address] Rosa Bolton, DIPKA, C.N.P., M.S. [address] [place] [phone] Social History Tobacco Use Types Packs/Day Years [...] Recorded PHQ-2 Score 3 09/24/2021 [facility] - Occupational [...] AM CDT Legal Sex Female 6:24 PM PEDIATRIC PATHOLOGIST Gender Identity Female 10/06/2017 9:26 AM CDT Sexual Orientation Straight 10/06/2017 9: 26 AM CDT documented as of this encounter Miscellaneous Notes * Telephone Encounter - Ana Pisano R.N. - 04/05/2024 7:29 AM PEDIATRIC PATHOLOGIST Prescription renewal request for hydroxychloroquine (Plaquenil) received [...] provider review due to hydroxychloroquine ECG alert. ATRIC PATHOLOGIST ATRIC PATHOLOGIST documented in this encounter Plan of Treatment Upcoming Encounters Date Type Department Care Team (Latest Contact Info) Description 05/31/2024 1:00 PM PEDIATRIC PATHOLOGIST Clinical Communication Virtual Review in [place], [place] 200 [place] [address] 06/01/2024 9:20 AM PEDIATRIC PATHOLOGIST Ancillary Procedure Department of Cardiovascular Medicine in [address] [phone] Eloy Cabrera M.D. [address] [place] [phone] 06/01/2024 9:50 AM PEDIATRIC PATHOLOGIST Appointment Department of Laboratory Medicine and Pathology, [facility] in [place], [place] [address] [place] [phone] Eloy Cabrera M.D. [address] [place] [phone] 06/01/2024 10:30 AM PEDIATRIC PATHOLOGIST Diagnostic Division of Pulmonary Medicine in [place], [place] [address] [place] [phone] Eloy Cabrera M.D. [address] [place] [phone] 06/01/2024 11:45 AM PEDIATRIC PATHOLOGIST Appointment Department of Radiology, [facility], in [place], [place] [address] [place] [phone] Eloy Cabrera M.D. [address] [place] [phone] 06/01/2024 3:00 PM PEDIATRIC PATHOLOGIST Office Visit Division of Pulmonary Medicine in [place], [place] [address] [place] [phone] Sanjiv Pablo M.B., Ch.B., M.P.H. [address] [place] [phone] 06/27/2024 11:30 AM PEDIATRIC PATHOLOGIST Clinical Communication Virtual Review in [place], [place] 200 [place] [phone] 06/27/2024 1:00 PM PEDIATRIC PATHOLOGIST Appointment Department of Laboratory Medicine and Pathology, [facility], in [place], [place] [address] [place] [phone] Emi Wilson APRN, Tristian.N.P., M.S., M.S.N. [address] [place] [phone] 06/27/2024 1:40 PM PEDIATRIC PATHOLOGIST Ancillary Procedure Department of Cardiovascular Medicine in [place], [place] [address] [place] [phone] Emi Wilson APRN, C.N.P., M.S., M.S.N. [address] [place] [phone] 06/27/2024 2:00 PM PEDIATRIC PATHOLOGIST Appointment Department of Cardiac Rehabilitation in [place], [place] [address] [place] [phone] Emi Wilson APRN, Tristian.N.Ave., M.S., M.S.N. [address] [place] [phone] 06/27/2024 3:20 PM PEDIATRIC PATHOLOGIST Appointment Department of Cardiovascular Diseases in [place], [place] [address] [place] [phone] Emi Wilson APRN, C.N.P., M.S., M.S.N. [address] [place] [phone] 06/28/2024 10:00 AM PEDIATRIC PATHOLOGIST Office Visit Department of Cardiovascular Medicine in [place], [place] [address] [place] [phone] Emi Wilson APRN, Allison., M.S., M.S.N. [address] [place] [phone] 06/28/2024 2:00 PM PEDIATRIC PATHOLOGIST Office Visit Division of Rheumatology in [place], [place] [address] [place] [phone] Rosa Bolton APRN, Tristian.N.P., M.S. [address] [place] [phone] documented as of this encounter Visit Diagnoses Diagnosis Arthritis Rheumatoid (HCC) documented in this encounter Additional Health Concerns Assessment Noted Time PHQ-9 Depression Total Score: 022 2:00 PM CDT documented as of this encounter Care Teams Cold Storage Worker Relationship Specialty Start Date End Date Elsewhere, Pcp PCP - General Internal Medicine 04/08/22 documented as of this encounter
--- OUTSIDE RECORDS SUMMARY | 2024-05-13 23:19 | XMS_ITS ---
Author Organization [facility] Address [address] [place] [address] Care Team Providers Care Magazine Supervisor Name Role Phone Unavailable Unavailable Unavailable Surgery Details Not on file Complications Check Surgery Details section. Procedure Estimated Blood Loss Check Surgery Details section. Procedure Findings Check Surgery Details section. Procedure Specimens Taken Check Surgery Details section.
--- OUTSIDE RECORDS SUMMARY | 2024-05-13 23:19 | XMS_ITS | Encounter Summary ---
Author Organization [facility] Address [address] [place] [id number] Care Team Providers Care Oracle Hrms Developer Name Role Phone Elsewhere, Pcp Primary Care Provider Unavailabl e Reason for Visit * Reason Comments Med Refill Encounter Details Date Type Department Care Team (Late st Contact Info) Description 05/03/2024 Refill Division of Nephrology and Hypertension in [place], [place] [address] [place] [phone] Luis Agarwal Jr., D.O. [address] [place] [phone] Med Refill Social History Tobacco Use Types [...] any clubs o r organizations such as moravian groups, unions, fraternal or athletic groups, or [...] Answer Date Recorded PHQ-2 Score 3 09/24/2021 [facility] - Occupational [...] AM CDT Legal Sex Female 6:24 PM REGISTER REPAIRER Gender Identity Female 10/06/2017 9:26 AM CDT Sexual Orientation Straight 10/06/2017 9: 26 AM CDT documented as of this encounter Plan of Treatment Upcoming Encounters Date Type Department Care Team (Latest Contact Info) Description 05/31/2024 1:00 PM REGISTER REPAIRER Clinical Communication Virtual Review in [place] [address] [place] [phone] 06/01/2024 9:20 AM REGISTER REPAIRER Ancillary Procedure Department of Cardiovascular Medicine in [place], [place] [address] [place] [phone] Eloy Cabrera M.D. [address] [place] [phone] 06/01/2024 9:50 AM REGISTER REPAIRER Appointment Department of Laboratory Medicine and Pathology, [facility] in [place], [place] [address] [place] [phone] Eloy Cabrera M.D. [address] [place] [phone] 06/01/2024 10:30 AM REGISTER REPAIRER Diagnostic Division of Pulmonary Medicine in [place], [place] [address] [place] [phone] Eloy Cabrera M.D. [address] [place] [phone] 06/01/2024 11:45 AM REGISTER REPAIRER Appointment Department of Radiology, [facility] in [address] [phone] Eloy Cabrera M.D. [address] [place] [phone] 06/01/2024 3:00 PM REGISTER REPAIRER Office Visit Division of Pulmonary Medicine in [address] [phone] Sanjiv Pablo M.B., Ch.B., M.P.H. [address] [place] [phone] 06/27/2024 11:30 AM REGISTER REPAIRER Clinical Communication Virtual Review in [place], [place] 200 [place] [phone] 06/27/2024 1:00 PM REGISTER REPAIRER Appointment Department of Laboratory Medicine and Pathology, [facility] in [place], [place] [address] [place] [phone] mEi Wilson APRN, FaustinaNChel., M.S., M.S.N. [address] [place] [phone] 06/27/2024 1:40 PM REGISTER REPAIRER Ancillary Procedure Department of Cardiovascular Medicine in [place], [place] [address] [place] [address] Emi Wilson APRN, Allison., M.S., M.S.N. [address] [place] [phone] 06/27/2024 2:00 PM REGISTER REPAIRER Appointment Department of Cardiac Rehabilitation in [place], [place] [address] [place] [phone] Emi Wilson APRN, Bjorn, M.S., M.S.N. [address] [place] [phone] 06/27/2024 3:20 PM REGISTER REPAIRER Appointment Department of Cardiovascular Diseases in [place], [place] [address] [place] [address] Emi Wilson APRN, FaustinaNChel., M.S., M.S.N. [address] [place] [phone] 06/28/2024 10:00 AM REGISTER REPAIRER Office Visit Department of Cardiovascular Medicine in [place], [place] [address] [place] [phone] Emi Wilson APRN, C.NJordan, M.S., M.S.N. [address] [place] [phone] 06/28/2024 2:00 PM REGISTER REPAIRER Office Visit Division of Rheumatology in [place], [place] [address] [place] [phone] Rosa Bolton APRN, C.N.P., M.S. [address] [place] [phone] documented as of this encounter Visit Diagnoses Not on filedocumented in this encounter Additional Health Concerns Assessment Noted Time PHQ-9 Depression Total Score: 10 09/24/ 022 2:00 PM CDT documented as of this encounter Care Teams Oracle Hrms Developer Relationship Specialty Start Date End Date Elsewhere, Pcp PCP - General Internal Medicine 04/08/22 documented as of this encounter
--- OUTSIDE RECORDS SUMMARY | 2024-05-13 23:19 | XMS_ITS | Encounter Summary ---
Author Organization [facility] Address [address] [place] [address] Care Team Providers Care Acupuncture Physician Name Role Phone Elsewhere, Pcp Primary Care Provider Unavailabl e Encounter Details Date Type Department Care Team (Late st Contact Info) Description 04/20/2024 Orders Only Division of Nephrology and Hypertension in [place], [place] [address] [place] [address] External, Ordering Provider, Rich Social History Tobacco [...] often do you attend chur ch or druze services? More than 4 times per year [...] AM CDT Legal Sex Female 6:24 PM CLINICAL NURSE Gender Identity Female 10/06/2017 9:26 AM CDT Sexual Orientation Straight 10/06/2017 9: 26 AM CDT documented as of this encounter Plan of Treatment Upcoming Encounters Date Type Department Care Team (Latest Contact Info) Description 05/31/2024 1:00 PM CLINICAL NURSE Clinical Communication Virtual Review in [place], [place] 200 [place] [address] 06/01/2024 9:20 AM CLINICAL NURSE Ancillary Procedure Department of Cardiovascular Medicine in [place], [place] [address] [place] [phone] Eloy Cabrera M.D. [address] [place] [phone] 06/01/2024 9:50 AM CLINICAL NURSE Appointment Department of Laboratory Medicine and Pathology, [facility] in [place], [place] [address] [place] [phone] Eloy Cabrera M.D. [address] [place] [phone] 06/01/2024 10:30 AM CLINICAL NURSE Diagnostic Division of Pulmonary Medicine in [place], [place] [address] [place] [phone] Eloy Cabrear M.D. [address] [place] [phone] 06/01/2024 11:45 AM CLINICAL NURSE Appointment Department of Radiology, [facility] in [place], [place] [address] [place] [phone] Eloy Cabrera M.D. [address] [place] [phone] 06/01/2024 3:00 PM CLINICAL NURSE Office Visit Division of Pulmonary Medicine in [place], [place] [address] [place] [phone] Sanjiv Pablo M.B., Ch.B., M.P.H. [address] [place] [phone] 06/27/2024 11:30 AM CLINICAL NURSE Clinical Communication Virtual Review in [place], [place] [address] [place] [address] 06/27/2024 1:00 PM CLINICAL NURSE Appointment Department of Laboratory Medicine and Pathology, [facility] in [place], [place] [address] [place] [phone] Emi Wilson APRN, C.N.P., M.S., M.S.N. [address] [place] [phone] 06/27/2024 1:40 PM CLINICAL NURSE Ancillary Procedure Department of Cardiovascular Medicine in [place], [place] [address] [place] [phone] Emi Wilson APRN, Allison., M.S., M.S.N. [address] [place] [phone] 06/27/2024 2:00 PM CLINICAL NURSE Appointment Department of Cardiac Rehabilitation in [place], [place] [address] [place] [phone] Emi Wilson APRN, Bjorn, M.S., M.S.N. [address] [place] [phone] 06/27/2024 3:20 PM CLINICAL NURSE Appointment Department of Cardiovascular Diseases in [place], [place] [address] [place] [phone] Emi Wilson APRN, Allison., M.S., M.S.N. [address] [place] [phone] 06/28/2024 10:00 AM CLINICAL NURSE Office Visit Department of Cardiovascular Medicine in [place], [place] [address] [place] [phone] Emi Wilson APRN, C.N.P., M.S., M.S.N. [address] [place] [phone] 06/28/2024 2:00 PM CLINICAL NURSE Office Visit Division of Rheumatology in [place], [place] [address] [place] [phone] Rosa Bolton APRN, C.NVikasP., M.S. [address] [place] [address] documented as of this encounter Procedures Procedure Name Priority Date/Time Associated Diagnosis Comments HEMOGLOBIN, B Routine 04/20/2024 2:30 PM CLINICAL NURSE documented in this encounter Results * (ABNORMAL) Hemoglobin (04/20/2024 2:30 PM CLINICAL NURSE) EXT Hemoglobin 10.3(L) 12.0 - 16.0 gm/dL [facility] 04/20/2024 2:30 PM CLINICAL NURSE Narrative [facility] - 04/21/2024 12:55 PM CLINICAL NURSE External results verified in Extract by Radha Escalante on 04/21/2024 at 12:54 PM. us Ordering Provider External M.DVikas LAB BLOOD ADD-ON Final Result [facility] [address] [place] [address], [facility] [phone] documented in this encounter Visit Diagnoses Not on filedocumented in this encounter Additional Health Concerns Assessment Noted Time PHQ-9 Depression Total Score: 10 09/24/ 022 2:00 PM CDT documented as of this encounter Care Teams Acupuncture Physician Relationship Specialty Start Date End Date Elsewhere, Pcp PCP - General Internal Medicine 04/08/22 documented as of this encounter
[2024-05-13 23:20] LABS: Basophils Absolute Auto 0.03 K/uL (0.00-0.30); Basophils Percent Auto 0.4 % (0.0-3.0); Eosinophils Absolute Auto 0.19 K/uL (0.00-0.50); Eosinophils Percent Auto 2.7 % (0.0-7.0); Hematocrit 30.6 % (33.0-51.0); Hemoglobin* 9.4 gm/dL (12.0-16.0); Immature Granulocytes Abs Auto 0.02 K/uL (0.00-0.30); Immature Granulocytes Pct Auto 0.3 %; Lymphocytes Percent Auto 13.2 % (20-44); Mean Corpuscular HGB Conc 31 gm/dL (32-36); Mean Corpuscular Hemoglobin 28 pg (26-34); Mean Corpuscular Volume 90 fL (80-100); Neutrophils Absolute Auto 4.79 K/uL (1.7-7.0); Neutrophils Percent Auto 69.4 % (42.0-72.0); Platelet Count* 233 K/uL (140-440); RDW Coefficient of Variation % 20.6 % (11.5-15.5); Red Blood Count 3.39 m/uL (4.00-5.20); White Blood Count* 6.91 K/uL (4.50-11.00)
[2024-05-13 23:23] LABS: Slide Review Reflex No
[2024-05-13 23:28] LABS: Troponin, Point-of-Care* 0.06 ng/ml (0.01-0.04)
[2024-05-13 23:57] LABS: PCR FLU A Negative PCR FLU A (Negative); PCR FLU B Negative PCR FLU B (Negative); PCR RSV Negative PCR RSV (Negative); SARS PCR* Negative SARS-CoV-2 (Negative)
[2024-05-14] VITALS (9 sets, daily range): BP systolic 107–124; BP diastolic 61–78; PULSE 66–77; RESP 16–20; TEMP 36.7–37.2; O2SAT 93–98; BMI 25.6
[2024-05-14 00:09] LABS: Albumin* 3.8 g/dL (3.3-5.0); Chloride* 106 mmol/L (96-114); Sodium* 134 mmol/L (135-149)
[2024-05-14 00:10] LABS: Potassium* 4.9 mmol/L (3.6-5.1)
[2024-05-14 00:12] LABS: Alanine Aminotransferase* 14 U/L (4-35); Alkaline Phosphatase* 221 U/L (40-150); Anion Gap 8 mEq/L (7-15); Aspartate Amino Transferase* 25 U/L (12-35); Bilirubin Total* 0.9 mg/dL (0.1-1.5); Blood Urea Nitrogen* 50 mg/dL (7-30); Carbon Dioxide* 20 mmol/L (20-32); Creatinine* 1.5 mg/dL (0.5-1.5); Est. Creatinine Clearance* 27.37; Estimated Glomerular Filt Rate 35 ml/min; Glucose* 99 mg/dL (60-115); Total Protein* 6.5 g/dL (6.0-8.3)
[2024-05-14 00:13] LABS: Calcium* 8.5 mg/dL (8.4-10.6)
[2024-05-14 00:22] LABS: NT Pro B Type NatriureticPept* 7980 pg/mL
[2024-05-14 00:54] LABS: Appearance Urine Clear (Clear); Bilirubin Urine Negative (Negative); Blood Urine Negative (Negative); Color Urine Yellow (Yellow); Glucose Urine Negative (Negative); Ketones Urine Negative (Negative); Leukocyte Esterase Urine 1+ (Negative); Nitrite Urine Negative (Negative); Protein Urine Negative (Negative); Specific Gravity Urine 1.015 (1.000-1.030); Urobilinogen Urine 0.2 (0.2-1.0); pH Urine 6.5 (5.0-8.5)
[2024-05-14 01:04] LABS: Troponin, Point-of-Care* 0.06 ng/ml (0.01-0.04)
[2024-05-14 01:06] LABS: RBC Urine 0-2 (0-2); WBC Urine 0-2 (0-5)
[2024-05-14] MEDS: ACETAMINOPHEN 325 MG TABLET 650 MG PO ×3 (03:59→23:23)
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
--- NOTE | 2024-05-14 06:56 | PC.NURSE ---
End of shift ? Pt arrived from ED at approximately 0150. Pt alert, oriented, cooperative and reported feeling fatigued. Up with standby assistance and walker/gait belt. Continent of bladder during shift. Tolerating RA and regular fluids. No report of nausea or emesis during shift. Pt reported pain in R shoulder rated as 8-9/10. Ice pack applied and medication given to improve pt comfort. Pt reporting improvement with interventions. Pt appears to be resting in bed comfortably at end of shift with call light within reach. ?
[2024-05-14] MEDS: FOLIC ACID 1 MG TABLET PO (09:02)
[2024-05-14] MEDS: buPROPion XL 150 MG TABLET 300 MG PO (09:02)
[2024-05-14] MEDS: METOPROLOL SUCCINATE (XL) 25 MG TAB PO ×2 (09:02→20:11)
[2024-05-14] MEDS: HYDROXYCHLOROQUINE 200 MG TABLET 400 MG PO (09:03)
[2024-05-14] MEDS: predniSONE 5 MG TABLET PO (09:03)
[2024-05-14] MEDS: MULTIVITAMIN/MINERALS 1 TABLET 1 TAB PO (09:03)
[2024-05-14] MEDS: APIXABAN 5 MG TABLET PO ×2 (09:04→20:11)
[2024-05-14] MEDS: CITALOPRAM HYDROBROMIDE 20 MG TABLET PO (09:04)
[2024-05-14] MEDS: SYNTHROID 137 MCG PO (09:05)
--- NOTE | 2024-05-14 11:24 | CRLHL7_ITS ---
For Patients: As a result of the Cures Act, medical imaging exams and procedure reports are released immediately into your electronic medical record. You may view this report before your referring provider. If you have questions, please contact your health care provider. INDICATION: Nausea and anorexia. COMPARISON: 04/21/2023 FINDINGS: No gallstones identified within the gallbladder although the gallbladder neck has not been well seen. There is small amount sludge in the gallbladder. There is no gallbladder wall thickening. The common bile duct at and a has normal diameter measuring 7.4 mm. The liver parenchyma is somewhat hypoechoic. Consider hepatitis. There is no focal hepatic abnormality. There is physiological blood flow within the main portal vein with spectral Doppler imaging. The head and body pancreas appear normal. The tail is not well seen. The right kidney is normal contour and echotexture and measures 10.6 x 5.5 x 5.2 cm. Renal cortical thickness measures 1.4 cm. Impression : 1. No gallstones seen within the gallbladder although the gallbladder neck as not been well seen. There is a small amount sludge within the gallbladder. 2. Liver parenchyma somewhat hypoechoic. Consider hepatitis. Dictated by Paul Cordova MD @ 05/14/2024 6:58:12 PM (Electronically Signed)
[2024-05-14] MEDS: SODIUM CHLORIDE 0.9 % (FLUSH) 10 ML SYRINGE 5 ML IVF ×2 (11:34→20:12)
--- NOTE | 2024-05-14 16:29 | P.IMPN_ITS ---
Progress Note: A&P Assessment and plan (1) Abdominal pain: Problem details: Abdominal/eating problems appear to be the primary symptoms bring her to the hospital. She is becoming weak because she is not eating due to unspecified abdominal illness. Will obtain gallbladder ultrasound as 1st evaluation. CT imaging if needed. Status: Acute (2) Weakness: Status: Acute (3) Vomiting: Status: Acute (4) Dehydration: Status: Acute (5) Diastolic congestive heart failure, NYHA class 3: Problem details: Heart failure with preserved ejection fraction and mitral and tricuspid valvular disease is likely the main cause of her chronic dyspnea and hypoxia. She does not appear to be obviously volume overloaded despite having no diuretics for the last 11 days. I am going to resume torsemide tomorrow if she can tolerate it. Patient self management of diuretics has been problematic. Status: Chronic (6) Constipation: Problem details: Self reporting constipation. Most likely because she is not eating much but may need laxative Status: Acute (7) CKD (chronic kidney disease) stage 4, GFR 15-29 ml/min: Problem details: Appears stable. Will need close monitoring as we manage her fluids and diuretics Status: Chronic Plan Observe in hospital for investigation of significant abdominal symptoms, pain, vomiting, anorexia, dehydration. Total time spent today is 60 minutes in evaluation and management, discussion with patient and daughter and other providers, review of past medical history. Subjective Date Seen: 05/14/24 Interval history: 79-year-old female with heart failure, stage 4 kidney disease, COPD, sleep apnea admitted through the emergency department with concerns of dehydration due to overuse of diuretics. Patient reports that she has been using excessive diuretics. She stopped using diuretics about 11 days ago however and since then reports feeling poorly with some nonbloody vomiting, some abdominal pain, loss of appetite, poor oral intake, poor tasting food. She is weak to the point that she is having trouble walking. She uses a walker but is unsteady on her feet. She does not have chest pain or shortness of breath. She is not aware of a fever cough or other respiratory symptoms. She reports her bowels have been working without diarrhea. She has had some constipation with small formed stools every 3 days or so. She reports poor urine output recently. She checks her weight normally and reports that her current weight is about baseline for her. The patient continue to focus on her diuretic misuse. She tells me that this fall she was taking extra diuretics because she was going to visit her in the [place] [facility] and was inconvenient for her to have urinary frequency at that time. During that time she was taking metolazone 5 mg along with torsemide 60 mg in the morning and torsemide 40 or 60 in the afternoon. This continued through until about Frandy of this year when she stopped taking diuretics altogether. Her on February 27. Exam Narrative: Exam Narrative: She is alert and appears in no distress. She gives her own history. She is seen with her daughter. Eyes normal. Oropharynx with small airway. Neck is supple without mass or adenopathy. Respirations are clear to auscultation with rare basilar crackle. Cardiovascular: S1, S2, 2/6 systolic murmur. Irregular rhythm. Abdomen: Bowel sounds are present. Abdomen is soft with mild diffuse tenderness. No focal tenderness no peritonitis. No mass. Extremities with no edema. Const: Vital Signs, click to edit/add: Vital Signs - 24 hr 05/13/24 22:27 05/13/24 23:00 05/14/24 01:02 Temperature 98.9 F 98.9 F Pulse Rate [Pulse Oximeter] Pulse Rate [Right Pulse Oximeter] 69 71 Respiratory Rate 18 18 Blood Pressure [Le ft Arm] Blood Pressure [Ri ght Arm] Blood Pressure [Ri ght Upper Arm] 120/74 118/72 Pulse Oximetry 96 96 96 Oxygen Delivery Me thod Room Air Room Air 05/14/24 01:45 05/14/24 02:36 05/14/24 02:49 Temperature 98.9 F Pulse Rate [Pulse Oximeter] 71 Pulse Rate [Right Pulse Oximeter] 71 Respiratory Rate 18 16 Blood Pressure [Le ft Arm] 124/64 Blood Pressure [Ri ght Arm] Blood Pressure [Ri ght Upper Arm] 118/72 Pulse Oximetry 93 93 Oxygen Delivery Me thod Room Air Room Air 05/14/24 07:00 05/14/24 07:00 05/14/24 11:00 Temperature 98.0 F 98.3 F Pulse Rate [Pulse Oximeter] 77 77 66 Pulse Rate [Right Pulse Oximeter] Respiratory Rate 18 18 18 Blood Pressure [Le ft Arm] Blood Pressure [Ri ght Arm] 121/70 112/78 Blood Pressure [Ri ght Upper Arm] Pulse Oximetry 94 95 Oxygen Delivery Me thod Room Air Room Air 05/14/24 15:00 05/14/24 15:00 Temperature 98.4 F Pulse Rate [Pulse Oximeter] 69 69 Pulse Rate [Right Pulse Oximeter] Respiratory Rate 20 20 Blood Pressure [Le ft Arm] Blood Pressure [Ri ght Arm] 107/61 Blood Pressure [Ri ght Upper Arm] Pulse Oximetry 95 Oxygen Delivery Me thod Room Air Documenting provider has reviewed patient's vital signs: yes Labs Labs: Laboratory Results - last 24 hr 05/13/24 05/13/24 05/13/24 00:52 23:01 23:17 WBC 6.91 RBC 3.39 L Hgb 9.4 L Hct 30.6 L MCV 90 MCH 28 MCHC 31 L RDW Coeff of [place]rella 20.6 H Plt Count 233 Neut % (Auto) 69.4 Lymph % (Auto) 13.2 L [place] % (Auto) 14.0 H Eos % (Auto) 2.7 Baso % (Auto) 0.4 Neut # (Auto) 4.79 Lymph # (Auto) 0.90 [place] # (Auto) 1.00 H Eos # (Auto) 0.19 Baso # (Auto) 0.03 Abs Immat Gran (auto) 0.02 Imm/Tot Granulo (auto) 0.3 Sodium 134 L Potassium 4.9 Chloride 106 Carbon Dioxide 20 Anion Gap 8 BUN 50 H Creatinine 1.5 Estimated Creat Clear 27.37 Estimated GFR 35 Glucose 99 Calcium 8.5 Total Bilirubin 0.9 AST 25 ALT 14 Alkaline Phosphatase 221 H NT-Pro-B Natriuret Pep 7980 Total Protein 6.5 Albumin 3.8 Urine Color Yellow Urine Appearance Clear Urine pH 6.5 Ur Specific [place] 1.015 Urine Protein Negative Urine Glucose (UA) Negative Urine Ketones Negative Urine Blood Negative Urine Nitrite Negative Urine Bilirubin Negative Urine Urobilinogen 0.2 Ur Leukocyte Esterase 1+ A Urine RBC 0-2 Urine WBC 0-2 Ur Squamous Epith Cells None Urine Bacteria None SARS-CoV-2 (PCR) Negative SARS-CoV-2 Influenza Type A (PCR) Negative PCR FLU A Influenza Type B (PCR) Negative PCR FLU B RSV (PCR) Negative PCR RSV POC Troponin I 0.06 H 05/14/24 00:43 WBC RBC Hgb Hct MCV MCH MCHC RDW Coeff of [place]rella Plt Count Neut % (Auto) Lymph % (Auto) [place] % (Auto) Eos % (Auto) Baso % (Auto) Neut # (Auto) Lymph # (Auto) [place] # (Auto) Eos # (Auto) Baso # (Auto) Abs Immat Gran (auto) Imm/Tot Granulo (auto) Sodium Potassium Chloride Carbon Dioxide Anion Gap BUN Creatinine Estimated Creat Clear Estimated GFR Glucose Calcium Total Bilirubin AST ALT Alkaline Phosphatase NT-Pro-B Natriuret Pep Total Protein Albumin Urine Color Urine Appearance Urine pH Ur Specific [place] Urine Protein Urine Glucose (UA) Urine Ketones Urine Blood Urine Nitrite Urine Bilirubin Urine Urobilinogen Ur Leukocyte Esterase Urine RBC Urine WBC Ur Squamous Epith Cells Urine Bacteria SARS-CoV-2 (PCR) Influenza Type A (PCR) Influenza Type B (PCR) RSV (PCR) POC Troponin I 0.06 H
[2024-05-14 19:14] LABS: Procalcitonin* 0.18 ng/mL (<0.50)
--- NOTE | 2024-05-14 19:35 | W.PM.CROSSCO ---
Subjective Subjective Interval history: I was asked to f/u on results of RUQ US: 1. No gallstones seen within the gallbladder although the gallbladder neck as not been well seen. There is a small amount sludge within the gallbladder. 2. Liver parenchyma somewhat hypoechoic. Consider hepatitis. I reviewed patient's labs. Only AP is mildly elevated on liver panel. I ordered an acute hepatitis panel and note a liver panel is ordered for tomorrow am.
--- NOTE | 2024-05-14 19:58 | PC.NURSE ---
End of Shift: Patient pleasant and cooperative. Afebrile. C/o pain in right shoulder 5-8/10 ice applied and PRN Tylenol given x1. Up to chair and walking in hallway with SBA, walker and gait belt. Denies nausea.
[2024-05-14] MEDS: SENNOSIDES/DOCUSATE TABLET 1 TAB PO (20:11)
[2024-05-14 20:21] LABS: Lab Add On Test New Spec Needed
[2024-05-15 06:29] LABS: Lactate* 0.9 mmol/L (0.5-1.9)
[2024-05-15 06:32] LABS: Basophils Absolute Auto 0.02 K/uL (0.00-0.30); Basophils Percent Auto 0.4 % (0.0-3.0); Eosinophils Absolute Auto 0.14 K/uL (0.00-0.50); Eosinophils Percent Auto 2.7 % (0.0-7.0); Hematocrit 29.3 % (33.0-51.0); Immature Granulocytes Abs Auto 0.01 K/uL (0.00-0.30); Immature Granulocytes Pct Auto 0.2 %; Mean Corpuscular HGB Conc 31 gm/dL (32-36); Mean Corpuscular Hemoglobin 28 pg (26-34); Mean Corpuscular Volume 90 fL (80-100); Monocytes Percent Auto 15.3 % (0.0-11.0); Neutrophils Absolute Auto 3.24 K/uL (1.7-7.0); Neutrophils Percent Auto 63.4 % (42.0-72.0); Platelet Count* 227 K/uL (140-440); RDW Coefficient of Variation % 20.2 % (11.5-15.5); Red Blood Count 3.26 m/uL (4.00-5.20); White Blood Count* 5.11 K/uL (4.50-11.00)
[2024-05-15] MEDS: SYNTHROID 137 MCG PO (06:32)
[2024-05-15] MEDS: OMEPRAZOLE 20 MG CAPSULE DR PO (06:32)
[2024-05-15 06:38] LABS: Slide Review Reflex No
[2024-05-15 06:51] LABS: Albumin* 3.7 g/dL (3.3-5.0); Chloride* 106 mmol/L (96-114)
[2024-05-15 06:52] LABS: Potassium* 4.8 mmol/L (3.6-5.1); Sodium* 133 mmol/L (135-149)
[2024-05-15 06:53] LABS: Creatinine* 1.4 mg/dL (0.5-1.5); Est. Creatinine Clearance* 29.32; Estimated Glomerular Filt Rate 38 ml/min
[2024-05-15 06:54] LABS: Alkaline Phosphatase* 178 U/L (40-150); Anion Gap 8 mEq/L (7-15); Aspartate Amino Transferase* 24 U/L (12-35); Bilirubin Direct* 0.4 mg/dL (0.0-0.5); Bilirubin Total* 1.4 mg/dL (0.1-1.5); Blood Urea Nitrogen* 40 mg/dL (7-30); Carbon Dioxide* 19 mmol/L (20-32); Lipase* 186 U/L (23-300); Total Protein* 6.8 g/dL (6.0-8.3)
[2024-05-15 06:55] LABS: Alanine Aminotransferase* 13 U/L (4-35); Calcium* 8.7 mg/dL (8.4-10.6); Glucose* 70 mg/dL (60-115)
[2024-05-15 06:57] VITALS: BP 126/75; PULSE 65; RESP 18; TEMP 36.8; O2SAT 95
[2024-05-15 06:57] LABS: C Reactive Protein* 7.2 mg/dL (0.5-1.0)
[2024-05-15 07:11] LABS: Free T4 Free Thyroxine* 1.62 ng/dL (0.70-1.85)
[2024-05-15 07:30] LABS: Troponin I* 0.08 ng/mL (0.01-0.04)
--- NOTE | 2024-05-15 07:39 | PC.NURSE ---
End of shift [id number] - Pt alert, oriented, cooperative. Up with standby assistance and walker/gait belt. Continent of bladder during shift. Tolerating RA and clear liquid diet. Pt reported discomfort in R/L shoulders during shift. Used ice pack, aqua K heating pad, and medication per MAR to improve pt comfort. Pt reported improvement with interventions. Pt observed to sleep during shift, appears to be resting comfortably at end of shift with call light within reach.
[2024-05-15 08:24] VITALS: BP 120/76; PULSE 63; RESP 18; TEMP 37.2; O2SAT 95
[2024-05-15] MEDS: APIXABAN 5 MG TABLET PO ×2 (08:32→20:10)
[2024-05-15] MEDS: buPROPion XL 150 MG TABLET 300 MG PO (08:32)
[2024-05-15] MEDS: HYDROXYCHLOROQUINE 200 MG TABLET 400 MG PO (08:32)
[2024-05-15] MEDS: FOLIC ACID 1 MG TABLET PO (08:33)
[2024-05-15] MEDS: predniSONE 5 MG TABLET PO (08:33)
[2024-05-15] MEDS: TORSEMIDE 20 MG TABLET 60 MG PO (08:33)
[2024-05-15] MEDS: METOPROLOL SUCCINATE (XL) 25 MG TAB PO (08:33)
[2024-05-15] MEDS: CITALOPRAM HYDROBROMIDE 20 MG TABLET PO (08:33)
[2024-05-15] MEDS: SODIUM CHLORIDE 0.9 % (FLUSH) 10 ML SYRINGE 5 ML IVF ×2 (08:34→20:10)
[2024-05-15] MEDS: SENNOSIDES/DOCUSATE TABLET 1 TAB PO ×2 (08:34→20:10)
[2024-05-15] MEDS: MULTIVITAMIN/MINERALS 1 TABLET 1 TAB PO (08:34)
--- NOTE | 2024-05-15 10:34 | NUTR.NU ---
RDN with nutrition screen related to positive skin risk. Patient admitted with abdominal pain, vomiting, and weakness. Past medical history significant for chronic kidney disease stage 4 and heart failure. Current weight 153lb 9.5637oz; height 5ft 5in; BMI 25.6kg/m2. Patient reports her weight is usually between 145-155lbs. She weighs herself daily with being on a diuretic. Patient is currently on clear liquid diet. Tolerating clears. RDN visited with patient whom reports her weight has been stable. She tries to follow a low sodium diet at home and adds no salt to meals. She has been feeling back on and off for the past few weeks. She has vomited a few times. She has a lower appetite and feels like after she takes her morning pills she is not hungry. She has had low intakes the past few weeks. She denies nausea. With current diet order and stable weight, no nutrition interventions at this time. RDN will continue to monitor and follow-up prn.
[2024-05-15 11:14] VITALS: BP 110/64; PULSE 59; RESP 18; TEMP 37; O2SAT 97
[2024-05-15] MEDS: ACETAMINOPHEN 325 MG TABLET 650 MG PO ×2 (11:21→19:08)
--- NOTE | 2024-05-15 11:26 | CRLHL7_ITS ---
For Patients: As a result of the 21st Century Cures Act, medical imaging exams and procedure reports are released immediately into your electronic medical record. You may view this report before your referring provider. If you have questions, please contact your health care provider. INDICATION: Abdominal pain. TECHNIQUE: Multiplanar CT examination of the abdomen and pelvis was performed after the administration of 85 mL Isovue 370 intravenous contrast. COMPARISON: CT abdomen pelvis 04/21/2023. FINDINGS: Lower chest: No focal consolidation. Cardiomegaly. Partially visualized epicardial pacing wire. Small right and trace left pleural effusions. Linear band like opacification in the lungs bilaterally, likely subsegmental atelectasis and/or scarring. Liver: Diffuse hepatic steatosis. Stable hyperenhancing focus within the anterior aspect of hepatic segment 3. Heterogeneous enhancement of the hepatic parenchyma, nonspecific. Gallbladder: Unremarkable. Biliary: Unremarkable. Pancreas: Within normal limits. Spleen: Unremarkable. Previously identified splenic infarct is inconspicuous on today`s examination. Adrenal glands: Unremarkable. Renal/ureters/bladder: Normal in size and symmetrically enhancing. No obstructive uropathy. No hydronephrosis or obstructive urinary calculi. No suspicious renal masses. The ureters appear unremarkable. The bladder is within normal limits. Pelvis: Hysterectomy. Gastrointestinal: No bowel wall thickening or bowel obstruction. Normal appendix. No significant colonic diverticulosis. Mild colonic stool burden. Vasculature: No aortic aneurysm. The portal vein remains patent. Mild atherosclerotic calcifications. Lymph nodes: No pathologic lymphadenopathy by size criteria. Peritoneum: No pneumoperitoneum. No drainable fluid collections. Small volume of pelvic free fluid, likely reactive/physiologic. Abdominal wall/soft tissues: Unremarkable. Bones: No acute osseous abnormalities. Multilevel degenerative changes of the visualized thoracolumbar spine. Stable age-indeterminate moderate compression deformity of T11. IMPRESSION: 1. Persistent heterogeneous enhancement of the hepatic parenchyma is nonspecific and can be seen with hepatitis. Correlation with liver function tests is advised. 2. Stable subcentimeter enhancing focus within the anterior capsule of hepatic segment 3. Recommend follow-up nonemergent, outpatient contrast-enhanced MRI, hepatic mass protocol for improved characterization. 3. Cardiomegaly with new small pleural effusions. 4. Otherwise, no other acute abdominopelvic pathology. Please note that all CT scans at this facility use dose modulation, iterative reconstruction, and/or weight-based dosing when appropriate to reduce radiation dose to as low as reasonably achievable. Dictated by Man Esquivel MD @ 05/15/2024 1:49:12 PM (Electronically Signed)
[2024-05-15 14:42] VITALS: BP 123/71; PULSE 70; RESP 20; TEMP 37; O2SAT 97
--- NOTE | 2024-05-15 15:07 | P.IMPN_ITS ---
Progress Note: A&P Assessment and plan (1) Abdominal pain: Problem details: Abdominal/eating problems appear to be the primary symptoms bring her to the hospital. She is becoming weak because she is not eating due to unspecified abdominal illness. Ultrasound suggests liver changes of hepatitis and sludge in the gallbladder without obvious cholecystitis. CT shows similar findings. Status: Acute (2) Weakness: Problem details: Likely related to abdominal illness and poor oral intake Status: Acute (3) Vomiting: Problem details: Improved but still very nauseated Status: Acute (4) Diastolic congestive heart failure, NYHA class 3: Problem details: Heart failure with preserved ejection fraction and mitral and tricuspid valvular disease is likely the main cause of her chronic dyspnea and hypoxia. She does not appear to be obviously volume overloaded despite having no diuretics for the last 11 days. I am going to resume torsemide tomorrow if she can tolerate it. Patient self management of diuretics has been problematic. Status: Chronic (5) Constipation: Problem details: Self reporting constipation. Most likely because she is not eating much but may need laxative Status: Acute (6) CKD (chronic kidney disease) stage 4, GFR 15-29 ml/min: Problem details: Appears stable. Will need close monitoring as we manage her fluids and diuretics Status: Chronic Plan Continue in hospital for evaluation of persistent nausea and abdominal pain and anorexia. Continue to monitor heart failure and renal failure during this pro cess. Total time spent today is 50 minutes in coordination of care and discussing with patient and daughter ongoing evaluation management of current symptoms Subjective Date Seen: 05/15/24 Interval history: 79-year-old female with heart failure, stage 4 kidney disease, COPD, sleep apnea admitted through the emergency department with concerns of dehydration due to overuse of diuretics. Patient reports that she has been using excessive diuretics. She stopped using diuretics about 11 days ago however and since then reports feeling poorly with some nonbloody vomiting, some abdominal pain, loss of appetite, poor oral intake, poor tasting food. She is weak to the point that she is having trouble walking. She uses a walker but is unsteady on her feet. She does not have chest pain or shortness of breath. She is not aware of a fever cough or other respiratory symptoms. She reports her bowels have been working without diarrhea. She has had some constipation with small formed stools every 3 days or so. She reports poor urine output recently. She checks her weight normally and reports that her current weight is about baseline for her. 05/15/2024: Ultrasound yesterday showed no gallstones but some sludge in the gallbladder. Liver was hypoechoic suggestive of hepatitis. Subsequently she is reporting no appetite and still having a queasy stomach with nausea. No more vomiting. No fever. Exam Narrative: Exam Narrative: She is alert and appears in no distress. Respirations are clear to auscultation. Cardiovascular: S1, S2, regular rate and rhythm. Abdomen: Bowel sounds are active. Abdomen is soft with minimal diffuse tenderness. No focal tenderness. No mass no peritonitis. Extremities without edema. Const: Vital Signs, click to edit/add: Vital Signs - 24 hr 05/14/24 21:34 05/14/24 23:15 05/15/24 06:57 Temperature 98.3 F 98.7 F 98.2 F Pulse Rate [Pulse Oximeter] 73 73 65 Respiratory Rate 16 16 18 Blood Pressure [Ri ght Arm] 113/71 110/61 126/75 Pulse Oximetry 98 94 95 Oxygen Delivery Me thod Room Air Room Air Room Air 05/15/24 08:24 05/15/24 08:24 05/15/24 11:14 Temperature 98.9 F 98.6 F Pulse Rate [Pulse Oximeter] 63 63 59 L Respiratory Rate 18 18 18 Blood Pressure [Ri ght Arm] 120/76 110/64 Pulse Oximetry 95 97 Oxygen Delivery Me thod Room Air Room Air 05/15/24 14:42 05/15/24 14:42 Temperature 98.6 F Pulse Rate [Pulse Oximeter] 70 70 Respiratory Rate 20 20 Blood Pressure [Ri ght Arm] 123/71 Pulse Oximetry 97 Oxygen Delivery Me thod Room Air Documenting provider has reviewed patient's vital signs: yes Labs Labs: Laboratory Results - last 24 hr 05/14/24 05/14/24 05/15/24 18:35 19:34 06:04 WBC 5.11 RBC 3.26 L Hgb 9.0 L Hct 29.3 L MCV 90 MCH 28 MCHC 31 L RDW Coeff of [place] 20.2 H Plt Count 227 Neut % (Auto) 63.4 Lymph % (Auto) 18.0 L [place] % (Auto) 15.3 H Eos % (Auto) 2.7 Baso % (Auto) 0.4 Neut # (Auto) 3.24 Lymph # (Auto) 0.90 [place] # (Auto) 0.80 Eos # (Auto) 0.14 Baso # (Auto) 0.02 Abs Immat Gran (auto) 0.01 Imm/Tot Granulo (auto) 0.2 Sodium 133 L Potassium 4.8 Chloride 106 Carbon Dioxide 19 L Anion Gap 8 BUN 40 H Creatinine 1.4 Estimated Creat Clear 29.32 Estimated GFR 38 Glucose 70 Lactate 0.9 Calcium 8.7 Total Bilirubin 1.4 Direct Bilirubin 0.4 AST 24 ALT 13 Alkaline Phosphatase 178 H Troponin I 0.08 H* C-Reactive Protein 7.2 H Total Protein 6.8 Albumin 3.7 Lipase 186 Procalcitonin 0.18 Free T4 1.62 Lab Acknowledgement New Spec Needed Imaging CT scan - abdomen: Radiologist's impression: INDICATION: Abdominal pain. TECHNIQUE: Multiplanar CT examination of the abdomen and pelvis was performed after the administration of 85 mL Isovue 370 intravenous contrast. COMPARISON: CT abdomen pelvis 04/21/2023. FINDINGS: Lower chest: No focal consolidation. Cardiomegaly. Partially visualized epicardial pacing wire. Small right and trace left pleural effusions. Linear band like opacification in the lungs bilaterally, likely subsegmental atelectasis and/or scarring. Liver: Diffuse hepatic steatosis. Stable hyperenhancing focus within the anterior aspect of hepatic segment 3. Heterogeneous enhancement of the hepatic parenchyma, nonspecific. Gallbladder: Unremarkable. Biliary: Unremarkable. Pancreas: Within normal limits. Spleen: Unremarkable. Previously identified splenic infarct is inconspicuous on today`s examination. Adrenal glands: Unremarkable. Renal/ureters/bladder: Normal in size and symmetrically enhancing. No obstructive uropathy. No hydronephrosis or obstructive urinary calculi. No suspicious renal masses. The ureters appear unremarkable. The bladder is within normal limits. Pelvis: Hysterectomy. Gastrointestinal: No bowel wall thickening or bowel obstruction. Normal appendix. No significant colonic diverticulosis. Mild colonic stool burden. Vasculature: No aortic aneurysm. The portal vein remains patent. Mild atherosclerotic calcifications. Lymph nodes: No pathologic lymphadenopathy by size criteria. Peritoneum: No pneumoperitoneum. No drainable fluid collections. Small volume of pelvic free fluid, likely reactive/physiologic. Abdominal wall/soft tissues: Unremarkable. Bones: No acute osseous abnormalities. Multilevel degenerative changes of the visualized thoracolumbar spine. Stable age-indeterminate moderate compression deformity of T11. IMPRESSION: 1. Persistent heterogeneous enhancement of the hepatic parenchyma is nonspecific and can be seen with hepatitis. Correlation with liver function tests is advised. 2. Stable subcentimeter enhancing focus within the anterior capsule of hepatic segment 3. Recommend follow-up nonemergent, outpatient contrast-enhanced MRI, hepatic mass protocol for improved characterization. 3. Cardiomegaly with new small pleural effusions. 4. Otherwise, no other acute abdominopelvic pathol US - abdomen: Radiologist's impression: INDICATION: Nausea and anorexia. COMPARISON: 04/21/2023 FINDINGS: No gallstones identified within the gallbladder although the gallbladder neck has not been well seen. There is small amount sludge in the gallbladder. There is no gallbladder wall thickening. The common bile duct at and a has normal diameter measuring 7.4 mm. The liver parenchyma is somewhat hypoechoic. Consider hepatitis. There is no focal hepatic abnormality. There is physiological blood flow within the main portal vein with spectral Doppler imaging. The head and body pancreas appear normal. The tail is not well seen. The right kidney is normal contour and echotexture and measures 10.6 x 5.5 x 5.2 cm. Renal cortical thickness measures 1.4 cm. Impression : 1. No gallstones seen within the gallbladder although the gallbladder neck as not been well seen. There is a small amount sludge within the gallbladder. 2. Liver parenchyma somewhat hypoechoic. Consider hepatitis.
--- NOTE | 2024-05-15 18:50 | PC.NURSE ---
End of Shift [id number]: Patient pleasant and cooperative. Patient vitally stable, lungs slightly course, BS WNL, IV SL and intact. Patient independent with walker. Patient has chronic shoulder pain rated at 3/10 and also reported a headache today, tylenol given once. Patient urinating well and had a couple BMs today. Patient does not have much of an appetite, 25% of dinner was consumed with no nausea or emesis but patient still reports it feels like food is stuck in her throat but it is not any worse. Patient has napped once and been up in chair majority of chair.
[2024-05-15 20:15] VITALS: BP 103/67; PULSE 59; RESP 18; TEMP 37.1; O2SAT 96
[2024-05-15 23:00] VITALS: BP 98/60; PULSE 79; RESP 18; TEMP 36.3; O2SAT 94
[2024-05-16 03:00] VITALS: BP 98/78; PULSE 70; RESP 18; TEMP 37.2; O2SAT 94
[2024-05-16] MEDS: SYNTHROID 137 MCG PO (06:14)
[2024-05-16] MEDS: OMEPRAZOLE 20 MG CAPSULE DR PO (06:16)
--- NOTE | 2024-05-16 06:19 | PC.NURSE ---
: pleasant and cooperative. Indep in room. Orientation & Mobility Specialist held HS dose Metoprolol for BP 103/67 & HR 59. BPs remained soft throughout shift ? SBP 90s, asymptomatic with this. 60mg Torsemide given 1/6 AM. Weight down 2lbs from yesterday. Pt verbalizes not being able to sleep much, she relates this to having anxiety about shoulder pain & remembering how much pain her mother was in when she struggled with chronic pain (pt currently not having shoulder pain). Pt requested?further information regarding shoulder pain & long-term management options moving forward.
[2024-05-16 07:00] LABS: Basophils Absolute Auto 0.03 K/uL (0.00-0.30); Basophils Percent Auto 0.6 % (0.0-3.0); Eosinophils Absolute Auto 0.12 K/uL (0.00-0.50); Eosinophils Percent Auto 2.2 % (0.0-7.0); Hematocrit 28.8 % (33.0-51.0); Hemoglobin* 8.9 gm/dL (12.0-16.0); Immature Granulocytes Abs Auto 0.01 K/uL (0.00-0.30); Immature Granulocytes Pct Auto 0.2 %; Lymphocytes Percent Auto 16.4 % (20-44); Mean Corpuscular HGB Conc 31 gm/dL (32-36); Mean Corpuscular Hemoglobin 27 pg (26-34); Mean Corpuscular Volume 88 fL (80-100); Monocytes Percent Auto 13.8 % (0.0-11.0); Neutrophils Absolute Auto 3.57 K/uL (1.7-7.0); Neutrophils Percent Auto 66.8 % (42.0-72.0); Platelet Count* 225 K/uL (140-440); RDW Coefficient of Variation % 20.1 % (11.5-15.5); Red Blood Count 3.28 m/uL (4.00-5.20); White Blood Count* 5.35 K/uL (4.50-11.00)
[2024-05-16 07:01] LABS: Slide Review Reflex No
[2024-05-16 07:19] LABS: Chloride* 101 mmol/L (96-114); Potassium* 4.1 mmol/L (3.6-5.1); Sodium* 132 mmol/L (135-149)
[2024-05-16 07:22] LABS: Anion Gap 9 mEq/L (7-15); Blood Urea Nitrogen* 43 mg/dL (7-30); Carbon Dioxide* 22 mmol/L (20-32); Creatinine* 1.7 mg/dL (0.5-1.5); Est. Creatinine Clearance* 24.15; Estimated Glomerular Filt Rate 30 ml/min; Glucose* 76 mg/dL (60-115)
[2024-05-16 07:23] LABS: Calcium* 8.2 mg/dL (8.4-10.6)
[2024-05-16 08:02] VITALS: BP 106/64; PULSE 71; RESP 16; TEMP 37.1; O2SAT 94
[2024-05-16] MEDS: buPROPion XL 150 MG TABLET 300 MG PO (09:08)
[2024-05-16] MEDS: HYDROXYCHLOROQUINE 200 MG TABLET 400 MG PO (09:09)
[2024-05-16] MEDS: MULTIVITAMIN/MINERALS 1 TABLET 1 TAB PO (09:09)
[2024-05-16] MEDS: TORSEMIDE 20 MG TABLET PO (09:09)
[2024-05-16] MEDS: FOLIC ACID 1 MG TABLET PO (09:09)
[2024-05-16] MEDS: SODIUM CHLORIDE 0.9 % (FLUSH) 10 ML SYRINGE 5 ML IVF (09:09)
[2024-05-16] MEDS: APIXABAN 5 MG TABLET PO (09:09)
[2024-05-16] MEDS: METOPROLOL SUCCINATE (XL) 25 MG TAB PO (09:09)
[2024-05-16] MEDS: SENNOSIDES/DOCUSATE TABLET 1 TAB PO (09:09)
[2024-05-16] MEDS: CITALOPRAM HYDROBROMIDE 20 MG TABLET PO (09:09)
[2024-05-16] MEDS: predniSONE 5 MG TABLET PO (09:10)
--- NOTE | 2024-05-16 13:24 | URNOTE ---
Luis ([id number]) has been approved by [facility]. Date range:05/18/2024 to 05/09/2025, Ref #[id number].
--- NOTE | 2024-05-16 16:39 | P.DS_ITS ---
DS: Providers Provider Date Seen: 05/16/24 Date of admission: 05/16/24 09:19 Primary care physician: Alcides Gonzalez MD Admitting Clinician: Ariana Hsieh MD Attending Physician on discharge: Gianfranco Maldonado MD Date of Discharge: 05/16/24 DS: Diagnosis Discharge Diagnosis (1) Abdominal pain: Status: Acute Problem details: Abdominal/eating problems appear to be the primary symptoms bring her to the hospital. She is becoming weak because she is not eating due to unspecified abdominal illness. Ultrasound suggests liver changes of hepatitis and sludge in the gallbladder without obvious cholecystitis. CT shows similar findings. Abdominal pain resolved and she is tolerating a normal diet. If recurrent problems with abdominal pain re-evaluate for cholecystitis (2) Weakness: Status: Acute Problem details: Likely related to abdominal illness and poor oral intake. Much improved with eating (3) Vomiting: Status: Acute Problem details: Resolved. Eating normal at the time of discharge (4) Diastolic congestive heart failure, NYHA class 3: Status: Chronic Problem details: Patient has a confusing and complex history of diuretic use: During this hospital stay she appeared to be close to euvolemic. She did not get diuretics for her 1st 2 days in the hospital. Prior to this hospital stay she had probably been off all diuretics for at least 10 days. Prior to that she had had 2 or 3 months of taking torsemide 100 mg daily and metolazone 5 mg daily. At this time she is placed back on torsemide 20 mg daily with a need for close follow-up of her volume status and electrolytes and renal function. (5) Constipation: Status: Acute Problem details: Self reporting constipation. Most likely because she is not eating much. Started on a laxative (6) CKD (chronic kidney disease) stage 4, GFR 15-29 ml/min: Status: Chronic Problem details: Appears stable. Will need close monitoring as we manage her fluids and diuretics. Diuretics initially held and then resumed at a lower dose (7) Right shoulder pain: Status: Acute Problem details: At the time of admission patient was having right shoulder pain. It got worse during the hospital stay. Initially thought possibly related to gallbladder disease. At discharge it was much better. She had fairly normal motion in her shoulder and no significant tenderness at discharge. (8) Abnormal liver CT: Status: Acute Problem details: Radiologic images of the liver on CT and ultrasound suggests hepatitis. Ferritin elevated at 480. Hepatitis viral studies pending (9) Elevated alkaline phosphatase level: Status: Acute Problem details: Mildly elevated alkaline phosphatase, 178-221, with normal bilirubin and transaminases DS: Summary Hospital Course Hospital Course: 79-year-old female with heart failure, stage 4 kidney disease, COPD, sleep apnea admitted through the emergency department with concerns of dehydration due to overuse of diuretics. Patient reports that she has been using excessive diuretics. She stopped using diuretics about 11 days ago however and since then reports feeling poorly with some nonbloody vomiting, some abdominal pain, loss of appetite, poor oral intake, poor tasting food. She is weak to the point that she is having trouble walking. She uses a walker but is unsteady on her feet. She does not have chest pain or shortness of breath. She is not aware of a fever cough or other respiratory symptoms. She reports her bowels have been working without diarrhea. She has had some constipation with small formed stools every 3 days or so. She reports poor urine output recently. She checks her weight normally and reports that her current weight is about baseline for her. 05/15/2024: Ultrasound yesterday showed no gallstones but some sludge in the gallbladder. Liver was hypoechoic suggestive of hepatitis. Subsequently she is reporting no appetite and still having a queasy stomach with nausea. No more vomiting. No fever. 05/16/2024: Since yesterday patient feels much better. Her shoulder pain is largely resolved. No abdominal pain. She has been able to eat normally today without nausea and vomiting. She reports no shortness of breath. Status at Discharge Functional status at discharge: uses cane/walker Overall status at discharge: patient is progressing back to baseline Time Spent with Patient Time attestation: Total time spent providing and/or coordinating discharge services: 40 minutes Time spent: Greater than 30 minutes Exam Narrative: Exam Narrative: She is alert and appears in no distress. Breathing is unlabored. Shoulders examine bilaterally. No significant tenderness. She has fairly good motion in forward flexion and abduction and range of motion with only minimal discomfort. Cardiovascular: S1, S2, regular rate and rhythm. Abdomen with bowel sounds are active abdomen is soft without tenderness or mass. Const: Vital Signs, click to edit/add: Vital Signs - 24 hr 05/15/24 20:15 05/15/24 23:00 05/15/24 23:00 Temperature 98.7 F 97.4 F L Pulse Rate [Pulse Oximeter] 59 L 79 Respiratory Rate 18 18 18 Blood Pressure [Le ft Arm] 103/67 98/60 Pulse Oximetry 96 94 Oxygen Delivery Me thod Room Air Room Air 05/16/24 03:00 05/16/24 08:02 Temperature 98.9 F 98.7 F Pulse Rate [Pulse Oximeter] 70 71 Respiratory Rate 18 16 Blood Pressure [Le ft Arm] 98/78 106/64 Pulse Oximetry 94 94 Oxygen Delivery Me thod Room Air Room Air Documenting provider has reviewed patient's vital signs: yes DS: Data Data Completed and Pending Completed studies during hospitalization: Procedures Labs on day of discharge: Labs from last 24 hours 05/16/24 06:15 WBC 5.35 RBC 3.28 L Hgb 8.9 L Hct 28.8 L MCV 88 MCH 27 MCHC 31 L RDW Coeff of Estrella 20.1 H Plt Count 225 Neut % (Auto) 66.8 Lymph % (Auto) 16.4 L [place] % (Auto) 13.8 H Eos % (Auto) 2.2 Baso % (Auto) 0.6 Neut # (Auto) 3.57 Lymph # (Auto) 0.90 [place] # (Auto) 0.70 Eos # (Auto) 0.12 Baso # (Auto) 0.03 Abs Immat Gran (auto) 0.01 Imm/Tot Granulo (auto) 0.2 Sodium 132 L Potassium 4.1 Chloride 101 Carbon Dioxide 22 Anion Gap 9 BUN 43 H Creatinine 1.7 H Estimated Creat Clear 24.15 Estimated GFR 30 Glucose 76 Calcium 8.2 L Ferritin 480.0 H Preliminary micro results at discharge 05/13/24 23:01 Blood Culture - Preliminary Blood NO GROWTH AFTER 48 HOURS Imaging US - abdomen: Radiologist's impression: INDICATION: Nausea and anorexia. COMPARISON: 04/21/2023 FINDINGS: No gallstones identified within the gallbladder although the gallbladder neck has not been well seen. There is small amount sludge in the gallbladder. There is no gallbladder wall thickening. The common bile duct at and a has normal diameter measuring 7.4 mm. The liver parenchyma is somewhat hypoechoic. Consider hepatitis. There is no focal hepatic abnormality. There is physiological blood flow within the main portal vein with spectral Doppler imaging. The head and body pancreas appear normal. The tail is not well seen. The right kidney is normal contour and echotexture and measures 10.6 x 5.5 x 5.2 cm. Renal cortical thickness measures 1.4 cm. Impression : 1. No gallstones seen within the gallbladder although the gallbladder neck as not been well seen. There is a small amount sludge within the gallbladder. 2. Liver parenchyma somewhat hypoechoic. Consider hepatitis. CT scan - abdomen: Radiologist's impression: INDICATION: Abdominal pain. TECHNIQUE: Multiplanar CT examination of the abdomen and pelvis was performed after the administration of 85 mL Isovue 370 intravenous contrast. COMPARISON: CT abdomen pelvis 04/21/2023. FINDINGS: Lower chest: No focal consolidation. Cardiomegaly. Partially visualized epicardial pacing wire. Small right and trace left pleural effusions. Linear band like opacification in the lungs bilaterally, likely subsegmental atelectasis and/or scarring. Liver: Diffuse hepatic steatosis. Stable hyperenhancing focus within the anterior aspect of hepatic segment 3. Heterogeneous enhancement of the hepatic parenchyma, nonspecific. Gallbladder: Unremarkable. Biliary: Unremarkable. Pancreas: Within normal limits. Spleen: Unremarkable. Previously identified splenic infarct is inconspicuous on today`s examination. Adrenal glands: Unremarkable. Renal/ureters/bladder: Normal in size and symmetrically enhancing. No obstructive uropathy. No hydronephrosis or obstructive urinary calculi. No suspicious renal masses. The ureters appear unremarkable. The bladder is within normal limits. Pelvis: Hysterectomy. Gastrointestinal: No bowel wall thickening or bowel obstruction. Normal appendix. No significant colonic diverticulosis. Mild colonic stool burden. Vasculature: No aortic aneurysm. The portal vein remains patent. Mild atherosclerotic calcifications. Lymph nodes: No pathologic lymphadenopathy by size criteria. Peritoneum: No pneumoperitoneum. No drainable fluid collections. Small volume of pelvic free fluid, likely reactive/physiologic. Abdominal wall/soft tissues: Unremarkable. Bones: No acute osseous abnormalities. Multilevel degenerative changes of the visualized thoracolumbar spine. Stable age-indeterminate moderate compression deformity of T11. IMPRESSION: 1. Persistent heterogeneous enhancement of the hepatic parenchyma is nonspecific and can be seen with hepatitis. Correlation with liver function tests is advised. 2. Stable subcentimeter enhancing focus within the anterior capsule of hepatic segment 3. Recommend follow-up nonemergent, outpatient contrast-enhanced MRI, hepatic mass protocol for improved characterization. 3. Cardiomegaly with new small pleural effusions. 4. Otherwise, no other acute abdominopelvic pathology. Discharge Plan Discharge Disposition: Home, Self-Care Date of Admission: 05/16/24 09:19 Attending Provider on Discharge: Valentino Maldonado Primary Care Provider: Alcides Gonzalez Condition: Improved Anticipated Discharge Date/Time: 05/16/24 17:00 Discharge Medications: New torsemide 20 mg Tablet 20 mg PO DAILY Qty: 30 0RF omeprazole 20 mg Capsule,Delayed Release(Dr/Ec) 20 mg PO DAILY@0700 Qty: 30 0RF Continued multivitamin [Daily Multi-Vitamin] Tablet 1 tab PO QDAY cyanocobalamin (vitamin B-12) [Vitamin B-12] 1,000 mcg tablet 1,000 mcg PO QDAY ascorbic acid (vitamin C) 1,000 mg tablet 1,000 mg PO QPM epoetin tu 10,000 unit/mL solution 80,000 unit subcut Q2W Rx Instructions: Inject under the skin every 14 (fourteen) days. CPAP continuous inhalation acetaminophen 500 mg tablet 1,000 mg PO BID Rx Instructions: USUALLY 1000 MG TWICE A DAY, SOMETIMES MORE, SOMETIMES LESS fluticasone propionate 50 mcg/actuation spray,suspension 2 spray intranasal Q12H PRN Rx Instructions: Administer 2 sprays into each nostril daily. apixaban 5 mg tablet 5 mg PO BID prednisone 5 mg tablet 5 mg PO DAILY albuterol sulfate [Ventolin HFA] 90 mcg/actuation HFA aerosol inhaler 2 puff inhalation Q4-6H PRN fluticasone furoate-vilanterol [Breo Ellipta] 200-25 mcg/dose blister with device 1 inh inhalation DAILY bupropion HCl 300 mg tablet extended release 24 hr 300 mg PO QAM Qty: 90 3RF citalopram 20 mg tablet 20 mg PO DAILY Qty: 90 3RF hydroxychloroquine 200 mg tablet 400 mg PO QAM metoprolol succinate 25 mg tablet extended release 24 hr 25 mg PO BID ferrous sulfate 325 mg (65 mg iron) tablet 325 mg PO QPM folic acid 400 mcg tablet 400 mcg PO DAILY levothyroxine [Synthroid] 137 mcg tablet 137 mcg PO DAILY Qty: 90 0RF Rx Instructions: no generic substitutions Discontinued potassium chloride 20 mEq tablet extended release 20 meq PO DAILY torsemide 20 mg tablet 60 mg PO DAILY metolazone 5 mg tablet 5 mg PO QPM Discharge Orders: Discharge Order (Routine); Ordered 05/16/24 Ordered By: Valentino Maldonado Patient Education: Omeprazole (By mouth), Torsemide (By mouth), Malnutrition (DC), Fall Prevention (DC) Activity Level: Activity as Tolerated Discharge Diet: Regular Follow Up Appointments: Alcides Gonzalez MD [Primary Care Provider] - 05/25/24 12:45 pm ([facility] for follow up and Basic metabolic panel.) Forms: Send[employer] Info Instructions
[2024-05-16 18:05] LABS: Hep A Ab, IgM Negative (Negative); Hep B Core Ab, IgM Negative (Negative); Hep B Surface Antigen Negative (Negative); Hep C Ab by CIA Index 0.12 IV; Hep C Ab by CIA Interp Negative (Negative)
== END 2024-05-16 16:40 | disposition home or self-care (01) | DRG 640 ==
LOC: ED 05-14 01:27 → MEDSURG 05-14 01:44
PROVIDERS: Family Medicine; Admitting Provider Internal Medicine; Emergency Provider Family Medicine; PCP Family Medicine; Visit Provider Internal Medicine
DX: E46 Unspecified protein-calorie malnutrition (principal); I50.33 Acute on chronic diastolic (congestive) heart failure; I13.0 Hypertensive heart and chronic kidney disease with heart failure and stage 1 through stage 4 chronic kidney disease, or unspecified chronic kidney disease; N18.4 Chronic kidney disease, stage 4 (severe); I50.30 Unspecified diastolic (congestive) heart failure; T50.2X1A Poisoning by carbonic-anhydrase inhibitors, benzothiadiazides and other diuretics, accidental (unintentional), initial encounter; T50.1X1A Poisoning by loop [high-ceiling] diuretics, accidental (unintentional), initial encounter; K75.9 Inflammatory liver disease, unspecified; E86.0 Dehydration; R11.2 Nausea with vomiting, unspecified; K59.00 Constipation, unspecified; I48.91 Unspecified atrial fibrillation; Z79.01 Long term (current) use of anticoagulants; R10.9 Unspecified abdominal pain; R63.4 Abnormal weight loss; R63.0 Anorexia; D63.1 Anemia in chronic kidney disease; G47.33 Obstructive sleep apnea (adult) (pediatric); D86.0 Sarcoidosis of lung; M06.9 Rheumatoid arthritis, unspecified; J44.9 Chronic obstructive pulmonary disease, unspecified; Z63.6 Dependent relative needing care at home; K82.8 Other specified diseases of gallbladder; M25.511 Pain in right shoulder; Z68.25 Body mass index [BMI] 25.0-25.9, adult; I25.5 Ischemic cardiomyopathy; Z91.148 Patient's other noncompliance with medication regimen for other reason; Z95.2 Presence of prosthetic heart valve; Z87.891 Personal history of nicotine dependence; E03.9 Hypothyroidism, unspecified; F32.A Depression, unspecified
CPT/HCPCS: 36415; 51798; 74177; 76705; 80048; 80053; 80074; 80076; 81001; 82270; 82728; 83605; 83690; 83880; 84145; 84439; 84484; 85025; 86140; 87040; 87086; 87186; 87631; 93005; 94761; 97116; 97162; 97165; 97530; 99284; 99285; A9153; A9270; G0378; J7512; Q9967

== ENCOUNTER 2024-05-18 14:31 | Outpatient (CLI) | payer OTHER, SELFPAY | END 2024-05-18 14:32 | disposition home or self-care (01) | LOC: NFLDREF 14:33 | PROVIDERS: PCP Family Medicine; Visit Provider Family Medicine | DX: N18.4 Chronic kidney disease, stage 4 (severe) (principal); R74.8 Abnormal levels of other serum enzymes | CPT/HCPCS: 80048 ==

== ENCOUNTER 2024-06-01 08:53 | Outpatient (CLI) | payer OTHER, SELFPAY ==
--- NOTE | 2024-06-01 09:15 | CRLHL7_ITS ---
For Patients: As a result of the Cures Act, medical imaging exams and procedure reports are released immediately into your electronic medical record. You may view this report before your referring provider. If you have questions, please contact your health care provider. INDICATION: Lesion subcapsular location segment [address] COMPARISON: CT abdomen and pelvis with intravenous contrast April 21, 2023 and May 15, 2024. TECHNIQUE: Precontrast T1 and T2 weighted imaging; T2 haste imaging; diffusion-weighted imaging; in- and out of phase imaging; postcontrast imaging including subtraction; 20 cc dotarem contrast was injected. Findings: No focal hepatic pathology. A 1 cm arterially enhancing subcapsular nodule in segment 3 of the liver noted on the previous CTs from April 2023 and May 2024 is not evident on today`s MRI study. No splenic pathology. No pancreatic pathology. Gallbladder appears unremarkable. No adrenal pathology. Kidneys are unremarkable. No retroperitoneal lymphadenopathy. No evidence of abdominal ascites. Cardiomegaly. Stable infarct spleen IMPRESSION: 1. No abnormalities identified within the liver; the 1 cm arterially enhancing subcapsular nodule in segment 3 of the liver noted on the previous CT does not have any correlate on the MR study; follow-up CT of the liver with intravenous contrast in 6 months duration is suggested. 2. Cardiomegaly. 3. Stable infarct spleen. Dictated by Sangeeta Bustillos MD @ 06/01/2024 1:15:39 PM (Electronically Signed)
== END 2024-06-01 08:54 | disposition home or self-care (01) ==
LOC: MRI 08:53
PROVIDERS: PCP Family Medicine; Visit Provider Family Medicine
DX: R93.2 Abnormal findings on diagnostic imaging of liver and biliary tract (principal); I51.7 Cardiomegaly; D73.5 Infarction of spleen; R16.0 Hepatomegaly, not elsewhere classified
CPT/HCPCS: 74183; A9575

== ENCOUNTER 2024-06-29 12:30 | Outpatient (RCR) | payer OTHER, SELFPAY ==
[2024-01-13 14:24] LABS: Hemoglobin* 9.7 gm/dL (12.0-16.0)
[2024-01-13 14:28] VITALS: BP 106/59; PULSE 86; RESP 16; TEMP 37; O2SAT 95
[2024-01-13] MEDS: EPOETIN ALFA 10,000 UNIT/ML VIAL 20000 UNIT SUBCUT (14:49)
[2024-01-27 14:17] VITALS: BP 102/52; PULSE 59; RESP 14; TEMP 36.9; O2SAT 94
[2024-01-27 14:22] LABS: Hemoglobin* 9.5 gm/dL (12.0-16.0)
[2024-01-27] MEDS: EPOETIN ALFA 10,000 UNIT/ML VIAL 20000 UNIT SUBCUT (14:54)
[2024-02-10 14:15] LABS: Hemoglobin* 9.5 gm/dL (12.0-16.0)
[2024-02-10 14:18] VITALS: BP 95/57; PULSE 68; RESP 20; TEMP 36.8; O2SAT 95
--- NOTE | 2024-02-18 10:22 | ONC.NURNOTE ---
patient called- due for additional labs for upcoming Mar appt with Dr Agarwal labs noted in patients chart
[2024-02-24 14:20] LABS: Hemoglobin* 9.5 gm/dL (12.0-16.0)
[2024-02-24 14:23] VITALS: BP 119/74; PULSE 71; RESP 16; TEMP 36.8; O2SAT 95
[2024-02-24 14:55] LABS: Hemoglobin* 9.5 gm/dL (12.0-16.0); Mean Corpuscular HGB Conc 31 gm/dL (32-36); Mean Corpuscular Hemoglobin 28 pg (26-34); Mean Corpuscular Volume 91 fL (80-100); Platelet Count* 234 K/uL (140-440); Red Blood Count 3.42 m/uL (4.00-5.20); White Blood Count* 8.31 K/uL (4.50-11.00)
[2024-02-24 15:04] LABS: Slide Review Reflex No
[2024-02-24 15:11] LABS: Chloride* 98 mmol/L (96-114)
[2024-02-24 15:12] LABS: Albumin* 4.6 g/dL (3.3-5.0); Potassium* 3.9 mmol/L (3.6-5.1); Sodium* 136 mmol/L (135-149)
[2024-02-24 15:14] LABS: Appearance Urine Clear (Clear); Bilirubin Urine Negative (Negative); Blood Urine Negative (Negative); Color Urine Yellow (Yellow); Glucose Urine Negative (Negative); Ketones Urine Negative (Negative); Leukocyte Esterase Urine 1+ (Negative); Nitrite Urine Negative (Negative); Protein Urine Negative (Negative); Urobilinogen Urine 0.2 (0.2-1.0); pH Urine 5.5 (5.0-8.5)
[2024-02-24 15:14] LABS: Iron* 50 ug/dL (37-170)
[2024-02-24 15:15] LABS: Anion Gap 13 mEq/L (7-15); Blood Urea Nitrogen* 78 mg/dL (7-30); Carbon Dioxide* 25 mmol/L (20-32); Creatinine* 1.9 mg/dL (0.5-1.5); Estimated Glomerular Filt Rate 27 ml/min; Glucose* 120 mg/dL (60-115); Phosphorus* 4.6 mg/dL (2.5-4.5); Uric Acid* 11.6 mg/dL (2.2-8.4)
[2024-02-24 15:24] LABS: Percent Iron Saturation 20 % (20-50); Total Iron Binding Capacity 245 ug/dL (265-497)
[2024-02-24 15:27] LABS: PTH Intact* 97.1 pg/mL (14.2-75.2)
[2024-02-24 15:42] LABS: Creatinine Urine 18.7 mg/dL
[2024-02-24 15:44] LABS: Microalbumin Creatinine Ratio 50 mg/g (0-30); Microalbumin Urine 1 mg/dL
[2024-02-24 15:51] LABS: Bacteria Urine Few; Squamous Epithelial Cell Urine Few (None-Few)
[2024-03-09 14:19] LABS: Hemoglobin* 10.3 gm/dL (12.0-16.0)
[2024-03-09 14:37] VITALS: BP 103/63; PULSE 62; RESP 16; TEMP 36.7; O2SAT 93
[2024-03-22 14:06] LABS: Hemoglobin* 10.3 gm/dL (12.0-16.0)
[2024-03-22 14:22] VITALS: BP 120/75; PULSE 83; RESP 16; TEMP 36.6; O2SAT 92
[2024-04-07 14:30] LABS: Hemoglobin* 10.5 gm/dL (12.0-16.0)
[2024-04-07 14:54] VITALS: BP 102/40; RESP 16; TEMP 37.1; O2SAT 93
[2024-04-20 14:38] LABS: Hemoglobin* 10.3 gm/dL (12.0-16.0)
[2024-04-20 15:06] VITALS: BP 104/63; PULSE 69; RESP 16; TEMP 36.4; O2SAT 91
[2024-05-05 13:06] LABS: Hemoglobin* 10.6 gm/dL (12.0-16.0)
[2024-05-05 13:07] VITALS: BP 106/65; PULSE 83; RESP 16; TEMP 36.8; O2SAT 94
[2024-05-18 15:16] VITALS: BP 114/71; PULSE 81; RESP 16; TEMP 37.1; O2SAT 96
--- NOTE | 2024-06-01 10:25 | ONC.NURNOTE ---
Patient here for imaging. Patient inquiring if she can come today vs tomorrow for lab draw and procrit if needed. Verified with UR. Okay to have today vs tomorrow.
[2024-06-01 10:47] LABS: Hematocrit 32.2 % (33.0-51.0); Hemoglobin* 9.6 gm/dL (12.0-16.0); Mean Corpuscular HGB Conc 30 gm/dL (32-36); Mean Corpuscular Hemoglobin 27 pg (26-34); Mean Corpuscular Volume 90 fL (80-100); Platelet Count* 309 K/uL (140-440); Red Blood Count 3.58 m/uL (4.00-5.20); White Blood Count* 9.38 K/uL (4.50-11.00)
[2024-06-01 10:50] LABS: Slide Review Reflex No
[2024-06-01 10:59] VITALS: BP 146/82; PULSE 58; RESP 16; TEMP 36.3; O2SAT 99
[2024-06-15 12:59] LABS: Hemoglobin* 9.4 gm/dL (12.0-16.0)
[2024-06-15 13:30] VITALS: BP 113/62; PULSE 75; RESP 18; TEMP 36.7; O2SAT 96
== END 2024-07-11 23:59 | disposition home or self-care (01) ==
LOC: CCIC 12:30
PROVIDERS: Internal Medicine Nephrology; PCP Family Medicine; Referring Provider Family Medicine; Visit Provider Clinical Nurse Specialist
DX: N18.4 Chronic kidney disease, stage 4 (severe) (principal); D63.1 Anemia in chronic kidney disease
CPT/HCPCS: 36415; 80069; 81001; 81003; 82043; 82570; 82728; 83540; 83550; 83970; 84550; 85018; 85025; 85027; 87086; 87186; 96372; J0885

== ENCOUNTER 2024-07-21 11:00 | Outpatient (CLI) | payer OTHER, SELFPAY | END 2024-07-21 11:01 | disposition home or self-care (01) | LOC: NFLDREF 07-24 01:55 | PROVIDERS: PCP Family Medicine; Referring Provider Family Medicine; Visit Provider Internal Medicine Nephrology | DX: N18.4 Chronic kidney disease, stage 4 (severe) (principal); I50.9 Heart failure, unspecified; I48.91 Unspecified atrial fibrillation; I10 Essential (primary) hypertension; E03.9 Hypothyroidism, unspecified; Z13.6 Encounter for screening for cardiovascular disorders | CPT/HCPCS: 80048; 80061; 80069; 82043; 82570; 82728; 83540; 83550; 83970; 84075; 84439; 84443; 84460; 84550; 86140; 87086 ==

== ENCOUNTER 2024-09-01 10:29 | Outpatient (CLI) | payer OTHER, SELFPAY | END 2024-09-01 10:30 | disposition home or self-care (01) | LOC: NFLDREF 09-04 03:59 | PROVIDERS: PCP Family Medicine; Referring Provider Family Medicine; Visit Provider Internal Medicine Nephrology | DX: I13.0 Hypertensive heart and chronic kidney disease with heart failure and stage 1 through stage 4 chronic kidney disease, or unspecified chronic kidney disease (principal); N18.4 Chronic kidney disease, stage 4 (severe); D63.1 Anemia in chronic kidney disease; Z79.899 Other long term (current) drug therapy | CPT/HCPCS: 80069; 82043; 82570; 82607; 82728; 82746; 83540; 83550; 87086; 87205 ==

== ENCOUNTER 2024-09-27 13:39 | Outpatient (CLI) | payer OTHER, SELFPAY | END 2024-09-27 13:40 | disposition home or self-care (01) | LOC: NFLDREF 10-04 03:25 | PROVIDERS: PCP Family Medicine; Referring Provider Family Medicine; Visit Provider Family Medicine | DX: E03.9 Hypothyroidism, unspecified (principal) | CPT/HCPCS: 84443 ==

== ENCOUNTER 2024-10-19 13:17 | Outpatient (CLI) | payer OTHER, SELFPAY | END 2024-10-19 13:18 | disposition home or self-care (01) | LOC: NFLDREF 10-20 01:31 | PROVIDERS: PCP Family Medicine; Referring Provider Family Medicine; Visit Provider Internal Medicine Nephrology | DX: J44.1 Chronic obstructive pulmonary disease with (acute) exacerbation (principal); N18.4 Chronic kidney disease, stage 4 (severe); I50.9 Heart failure, unspecified | CPT/HCPCS: 80069; 82043; 82570; 82607; 82728; 82746; 83540; 83550; 84550; 86140 ==

== ENCOUNTER 2024-12-14 13:46 | Outpatient (CLI) | payer OTHER, SELFPAY | END 2024-12-14 13:47 | disposition home or self-care (01) | LOC: NFLDREF 12-20 12:33 | PROVIDERS: PCP Family Medicine; Referring Provider Family Medicine; Visit Provider Internal Medicine Nephrology | DX: I13.0 Hypertensive heart and chronic kidney disease with heart failure and stage 1 through stage 4 chronic kidney disease, or unspecified chronic kidney disease (principal); I50.32 Chronic diastolic (congestive) heart failure; N18.4 Chronic kidney disease, stage 4 (severe); D63.1 Anemia in chronic kidney disease; N39.0 Urinary tract infection, site not specified; B96.20 Unspecified Escherichia coli [E. coli] as the cause of diseases classified elsewhere | CPT/HCPCS: 80069; 82043; 82570; 82728; 83540; 83550; 83970; 84450; 84460; 84550; 86140; 87086 ==

== ENCOUNTER 2025-01-10 12:19 | Outpatient (CLI) | payer OTHER, SELFPAY | END 2025-01-10 12:20 | disposition home or self-care (01) | LOC: NFLDREF 01-20 03:29 | PROVIDERS: PCP Family Medicine; Referring Provider Family Medicine; Visit Provider Podiatrist | DX: N18.5 Chronic kidney disease, stage 5 (principal); I50.9 Heart failure, unspecified; R74.8 Abnormal levels of other serum enzymes; D63.1 Anemia in chronic kidney disease; E03.9 Hypothyroidism, unspecified; R16.0 Hepatomegaly, not elsewhere classified; M06.9 Rheumatoid arthritis, unspecified; J44.9 Chronic obstructive pulmonary disease, unspecified | CPT/HCPCS: 80069; 81001; 82043; 82570; 82728; 83540; 83550; 84550; 85027; 87086 ==

== ENCOUNTER 2025-01-10 13:00 | Outpatient (RCR) | payer OTHER, SELFPAY ==
[2024-07-14 14:46] VITALS: BP 103/64; PULSE 72; RESP 16; TEMP 37.1; O2SAT 94
[2024-07-14 14:51] LABS: Hematocrit* 28.2 % (33.0-51.0); Hemoglobin* 8.6 gm/dL (12.0-16.0); Immature Granulocytes Abs Auto 0.01 K/uL (0.00-0.30); Immature Granulocytes Pct Auto 0.1 %; Mean Corpuscular HGB Conc 31 gm/dL (32-36); Mean Corpuscular Hemoglobin 28 pg (26-34); Mean Corpuscular Volume 93 fL (80-100); RDW Coefficient of Variation % 21.6 % (11.5-15.5); Red Blood Count* 3.04 m/uL (4.00-5.20); White Blood Count* 10.13 K/uL (4.50-11.00)
[2024-07-14 14:53] LABS: Lymphocytes Absolute Auto 0.90 K/uL (0.90-2.90); Slide Review Reflex No
--- NOTE | 2024-07-27 09:45 | URNOTE ---
Addendum entered by Mary Connor RN 09/04/24 07:34: Procrit is now dose specific. Auth is valid for 60,000 units. Original Note: Procrit ([id number]) has been approved by [facility]. Date range:05/18/2024 to 05/09/2025, Ref #[id number] is not dose specific.
[2024-07-27 13:55] LABS: Hematocrit* 28.0 % (33.0-51.0); Hemoglobin* 8.3 gm/dL (12.0-16.0); Mean Corpuscular HGB Conc 30 gm/dL (32-36); Mean Corpuscular Hemoglobin 28 pg (26-34); Mean Corpuscular Volume 95 fL (80-100); Red Blood Count* 2.96 m/uL (4.00-5.20); White Blood Count* 9.58 K/uL (4.50-11.00)
[2024-07-27 14:03] VITALS: BP 115/71; PULSE 97; RESP 16; TEMP 36.6; O2SAT 96
[2024-07-27 14:08] LABS: Slide Review Reflex No
[2024-07-27] MEDS: EPOETIN ALFA 10,000 UNIT/ML VIAL 20000 UNIT SUBCUT (14:43)
[2024-08-11 10:01] LABS: Hematocrit* 30.9 % (33.0-51.0); Hemoglobin* 9.3 gm/dL (12.0-16.0); Immature Granulocytes Abs Auto 0.03 K/uL (0.00-0.30); Immature Granulocytes Pct Auto 0.3 %; Lymphocytes Absolute Auto 1.20 K/uL (0.90-2.90); Mean Corpuscular HGB Conc 30 gm/dL (32-36); Mean Corpuscular Hemoglobin 28 pg (26-34); Mean Corpuscular Volume 94 fL (80-100); RDW Coefficient of Variation % 22.4 % (11.5-15.5); Red Blood Count* 3.29 m/uL (4.00-5.20); White Blood Count* 10.39 K/uL (4.50-11.00)
[2024-08-11 10:04] LABS: Slide Review Reflex No
[2024-08-11 10:06] VITALS: BP 99/65; PULSE 75; RESP 20; TEMP 35.8; O2SAT 98
[2024-08-11] MEDS: EPOETIN ALFA 10,000 UNIT/ML VIAL 20000 UNIT SUBCUT (10:39)
[2024-08-24 14:53] LABS: Hemoglobin* 9.0 gm/dL (12.0-16.0)
[2024-09-07 14:08] VITALS: BP 122/62; PULSE 89; RESP 18; TEMP 35.6; O2SAT 99
[2024-09-07 14:37] LABS: Hematocrit* 27.6 % (33.0-51.0); Hemoglobin* 8.6 gm/dL (12.0-16.0); Immature Granulocytes Abs Auto 0.01 K/uL (0.00-0.30); Immature Granulocytes Pct Auto 0.1 %; Mean Corpuscular HGB Conc 31 gm/dL (32-36); Mean Corpuscular Hemoglobin 29 pg (26-34); Mean Corpuscular Volume 92 fL (80-100); RDW Coefficient of Variation % 21.1 % (11.5-15.5); Red Blood Count* 3.01 m/uL (4.00-5.20); White Blood Count* 7.13 K/uL (4.50-11.00)
[2024-09-07 14:41] LABS: Lymphocytes Absolute Auto 0.60 K/uL (0.90-2.90); Slide Review Reflex No
[2024-09-07] MEDS: EPOETIN ALFA 20,000 UNIT/ML VIAL 60000 UNIT SUBCUT (15:12)
[2024-09-21 14:04] VITALS: BP 144/78; PULSE 83; RESP 16; TEMP 36.4; O2SAT 95
[2024-09-21 14:21] LABS: Hematocrit* 27.2 % (33.0-51.0); Hemoglobin* 8.4 gm/dL (12.0-16.0); Immature Granulocytes Abs Auto 0.02 K/uL (0.00-0.30); Immature Granulocytes Pct Auto 0.2 %; Mean Corpuscular HGB Conc 31 gm/dL (32-36); Mean Corpuscular Hemoglobin 29 pg (26-34); Mean Corpuscular Volume 93 fL (80-100); RDW Coefficient of Variation % 21.5 % (11.5-15.5); Red Blood Count* 2.94 m/uL (4.00-5.20); White Blood Count* 8.07 K/uL (4.50-11.00)
[2024-09-21 14:22] LABS: Lymphocytes Absolute Auto 1.20 K/uL (0.90-2.90); Slide Review Reflex No
[2024-09-21] MEDS: EPOETIN ALFA 20,000 UNIT/ML VIAL 20000 UNIT SUBCUT (15:00)
[2024-10-05 13:57] VITALS: BP 121/66; PULSE 71; RESP 16; TEMP 36.7; O2SAT 95
[2024-10-05 14:19] LABS: Hemoglobin* 9.2 gm/dL (12.0-16.0)
[2024-10-05] MEDS: EPOETIN ALFA 20,000 UNIT/ML VIAL 20000 UNIT SUBCUT (15:03)
[2024-10-19 13:34] VITALS: BP 120/72; PULSE 98; TEMP 36.7; O2SAT 94
[2024-10-19] MEDS: EPOETIN ALFA 20,000 UNIT/ML VIAL 20000 UNIT SUBCUT (14:11)
[2024-11-02 13:37] VITALS: BP 123/62; PULSE 80; RESP 30; TEMP 36.8; O2SAT 95
[2024-11-02 14:00] LABS: Hematocrit* 28.1 % (33.0-51.0); Hemoglobin* 8.7 gm/dL (12.0-16.0); Immature Granulocytes Abs Auto 0.01 K/uL (0.00-0.30); Immature Granulocytes Pct Auto 0.1 %; Mean Corpuscular HGB Conc 31 gm/dL (32-36); Mean Corpuscular Hemoglobin 29 pg (26-34); Mean Corpuscular Volume 92 fL (80-100); RDW Coefficient of Variation % 21.0 % (11.5-15.5); Red Blood Count* 3.05 m/uL (4.00-5.20); White Blood Count* 7.76 K/uL (4.50-11.00)
[2024-11-02 14:05] LABS: Lymphocytes Absolute Auto 0.80 K/uL (0.90-2.90); Slide Review Reflex No
[2024-11-02] MEDS: EPOETIN ALFA 20,000 UNIT/ML VIAL 20000 UNIT SUBCUT (14:43)
[2024-11-16 13:19] VITALS: BP 126/73; PULSE 81; RESP 20; TEMP 36.4; O2SAT 95
[2024-11-16 13:54] LABS: Hemoglobin* 9.5 gm/dL (12.0-16.0)
[2024-11-16] MEDS: EPOETIN ALFA 20,000 UNIT/ML VIAL 20000 UNIT SUBCUT (14:17)
[2024-11-30 13:48] VITALS: BP 102/61; PULSE 70; TEMP 36.4; O2SAT 92
[2024-11-30 14:10] LABS: Hemoglobin* 9.0 gm/dL (12.0-16.0)
[2024-11-30] MEDS: EPOETIN ALFA 20,000 UNIT/ML VIAL 20000 UNIT SUBCUT (14:47)
--- NOTE | 2024-11-30 14:56 | ONC.NURNOTE ---
Addendum entered by Katherine Ayers RN 11/30/24 15:15: Dr. Escalera here to assess. MD has no acute concerns. He recommends she be seen by podiatry. RN called and made an appointment with Dr. Angela in [place] on 12/06/2024 at 11:00 AM. Pt is agreeable. Original Note: Pt present at [facility] for injection. 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 She states it is black in color and very difficult for her to walk. RN removed pt's shoe to assess. The distal/lateral aspect of the toe appears to be bruised/black with skin peeling around it. No foul odor noted. Called PCP and Dr. Escalera will come to [facility] to assess.
[2024-12-14 14:10] VITALS: BP 122/78; PULSE 85; RESP 20; O2SAT 92
[2024-12-14] MEDS: EPOETIN ALFA 20,000 UNIT/ML VIAL 20000 UNIT SUBCUT (14:28)
[2024-12-27 12:17] VITALS: BP 106/65; PULSE 77; RESP 17; TEMP 36.7; O2SAT 96
[2024-12-27 12:42] LABS: Hematocrit* 30.0 % (33.0-51.0); Hemoglobin* 9.3 gm/dL (12.0-16.0); Mean Corpuscular HGB Conc 31 gm/dL (32-36); Mean Corpuscular Hemoglobin 28 pg (26-34); Mean Corpuscular Volume 90 fL (80-100); Red Blood Count* 3.35 m/uL (4.00-5.20); White Blood Count* 8.46 K/uL (4.50-11.00)
[2024-12-27 12:53] LABS: Slide Review Reflex No
[2024-12-27] MEDS: EPOETIN ALFA 20,000 UNIT/ML VIAL 20000 UNIT SUBCUT (13:20)
[2025-01-10 12:29] VITALS: BP 124/75; PULSE 83; RESP 16; TEMP 36.6; O2SAT 95
[2025-01-10] MEDS: EPOETIN ALFA 20,000 UNIT/ML VIAL 20000 UNIT SUBCUT (13:06)
== END 2025-01-10 23:59 | disposition home or self-care (01) ==
LOC: CCIC 13:00
PROVIDERS: Internal Medicine Nephrology; PCP Family Medicine; Referring Provider Family Medicine; Visit Provider Clinical Nurse Specialist
DX: N18.4 Chronic kidney disease, stage 4 (severe) (principal); D63.1 Anemia in chronic kidney disease; N39.0 Urinary tract infection, site not specified; B96.20 Unspecified Escherichia coli [E. coli] as the cause of diseases classified elsewhere
CPT/HCPCS: 36415; 80069; 81001; 82043; 82570; 82728; 83540; 83550; 84550; 85018; 85025; 85027; 87086; 96372; 99211; J0885